=== PATIENT | female | born 1940 | race Caucasian/White ===

== ENCOUNTER 2018-02-04 08:27 | Outpatient (REF) | payer MEDICARE, MEDICAID, SELFPAY ==
[2018-02-04 12:04] LABS: ALT 31 U/L (12-78); AST 25 U/L (15-37); Albumin 3.8 g/dL (3.4-5.0); Alkaline Phosphatase 69 U/L (46-116); Anion Gap 6.6 mmol/L (3-11); BUN 19 mg/dL (7-18); Bilirubin, Total 0.3 mg/dL (0.2-1.0); CO2 31.4 mmol/L (21.0-32.0); Chloride 104 mmol/L (98-107); Cholesterol 162 mg/dL (50-200); Estimated GFR 54.05 (mL/min/1.73m2); Glucose 88 mg/dL (70-100); HDL Cholesterol 61 mg/dL (40-60); LDL CHOLESTEROL 84 mg/dL (<100); Potassium 3.6 mmol/L (3.5-5.1); Sodium 142 mmol/L (136-145); Total Protein 6.2 g/dL (6.4-8.2); Triglyceride 112 mg/dL (30-150)
[2018-02-04 16:28] LABS: HCT 33.8 % (36.0-46.0); HGB 11.5 g/dL (12.0-15.5); Mean Corpuscular Hemoglobin 31.2 pg (27.0-33.0); Mean Corpuscular Volume 91.6 fL (80-95); RBC 3.69 m/cumm (4.00-5.20); White Blood Cell Count 4.92 k/cumm (4.4-10.8)
[2018-02-04 16:29] LABS: Mean Platelet Volume 10.5 fL (8.0-11.0); Platelet Count 216 x1000/uL (130-400); RBC Distribution Width 12.9 % (11.7-14.6)
== END 2018-02-04 08:28 ==
LOC: NCHCN 08:27
PROVIDERS: Visit Provider Family Medicine
DX: I10 Essential (primary) hypertension (principal); E78.5 Hyperlipidemia, unspecified; R42 Dizziness and giddiness; M62.81 Muscle weakness (generalized)
CPT/HCPCS: 80053; 80061; 83721; 85027; 85025

== ENCOUNTER 2018-03-18 11:15 | Outpatient (CLI) | payer MEDICARE, MEDICAID, SELFPAY ==
--- NOTE | 2018-03-18 11:52 | DI.MAMMO_ITS ---
SYMPTOMS/DIAGNOSIS: SCREENING, Z12.31 MAMMOGRAM: Mammograms were interpreted according to the usual protocol including computer analysis with CAD system, tomosynthesis and C view imaging. The breasts are of moderate density with fairly symmetrical distribution of fibroglandular tissue. No dominant mass or clumped microcalcification is identified in either breast. Current examination is compared with the previous examinations including June 2015 and there has been no gross interval change in appearance in comparison with the previous studies. CONCLUSION: No specific evidence of malignancy at this time. Routine screening examinations are suggested at yearly intervals due to the family history of breast carcinoma. Category 1, breast density category B. MQSA ASSESSMENT OF FINDINGS: Negative. Category 1. Patient will receive a letter notifying them of these results. BI-RADS category B. There are scattered areas of fibroglandular density.
== END 2018-03-18 11:35 ==
PROVIDERS: Visit Provider Nurse Practitioner Family
DX: Z12.31 Encounter for screening mammogram for malignant neoplasm of breast (principal); Z80.3 Family history of malignant neoplasm of breast
CPT/HCPCS: 77063; 77067

== ENCOUNTER 2018-03-23 00:17 | Outpatient (CLI) | payer MEDICARE, MEDICAID, SELFPAY ==
--- NOTE | 2018-03-23 10:45 | MERGE_ITS ---
*[facility]* *[facility]* [address] [facility] ([facility] [address] Date of study: 03/23/2018 Transthoracic Echocardiography M-mode, complete 2D, complete spectral Doppler, and color Doppler *STUDY CONCLUSIONS* Summary: 1. Left ventricle: The cavity size was normal. Systolic function was hyperdynamic. The estimated ejection fraction was 65-70%. Doppler parameters are consistent with high ventricular filling pressure. 2. Aortic valve: There was mild stenosis. Valve area (VTI): 1.8cm^2. 3. Mitral valve: There was mild regurgitation. 4. Right ventricle: The cavity size was normal. Wall thickness was normal. Systolic function was normal. 5. Atrial septum: No defect or patent foramen ovale was identified. 6. Pulmonary arteries: Pulmonary systolic pressure was in the range of 20mm Hg to 30mm Hg. 7. Inferior vena cava: The vessel was normal in size. The respirophasic diameter changes were in the normal range (greater than or equal to 50%), consistent with normal central venous pressure. *PATIENT PRESENTATION* Height: 157.5cm ((62in) ) S/D Pressure: 133 / 57 Weight: 67.1kg ((147.7lb) ) BSA: 1.73m^2 Test start time: 10:30 AM. Test stop time: 11:45 AM. PERFORMING Unknown ORDERING Sheela Storey Aprn REFERRING Sheela Storey Aprn PERFORMING [facility] [employer] Khloe Sanford *PROCEDURE DATA* Procedure information: This study was interpreted by [facility]. Pertinent images and digital data are archived for permanent storage and are available for subsequent review. No prior study was available for comparison. Study status: Routine. Transthoracic echocardiography. M-mode, complete 2D, complete spectral Doppler, and color Doppler. A Transthoracic Echocardiogram was performed. Scanning was performed from the parasternal, apical, subcostal, and suprasternal notch acoustic windows. Images were obtained using an [employer] 2000 cardiac ultrasound machine. Image quality was adequate. Study completion: The patient tolerated the procedure well. History: PMH: Murmur. *CARDIAC ANATOMY* Left ventricle: The cavity size was normal. Systolic function was hyperdynamic. The estimated ejection fraction was 65-70%. The tissue Doppler parameters were abnormal. Some parameters suggest diastolic dysfunction. Doppler parameters are consistent with high ventricular filling pressure. Aortic valve: Trileaflet; mildly thickened, mildly calcified leaflets. Doppler: There was mild stenosis. There was no regurgitation. VTI ratio of LVOT to aortic valve: 0.71. Valve area (VTI): 1.8cm^2. Indexed valve area (VTI): 1cm^2/m^2. Peak velocity ratio of LVOT to aortic valve: 0.59. Valve area (Vmax): 1.5cm^2. Indexed valve area (Vmax): 0.9cm^2/m^2. Mean velocity ratio of LVOT to aortic valve: 0.6. Valve area (Vmean): 1.5cm^2. Indexed valve area (Vmean): 0.9cm^2/m^2. Mean gradient (S): 7.5mm Hg. Peak gradient (S): 15.2mm Hg. Aorta: Aortic root: The aortic root was normal in size. Ascending aorta: The ascending aorta was mildly dilated. Mitral valve: Doppler: There was no evidence for stenosis. There was mild regurgitation. Valve area by pressure half-time: 2.5cm^2. Indexed valve area by pressure half-time: 1.5cm^2/m^2. Peak gradient (D): 2.8mm Hg. Left atrium: The atrium was normal in size. Atrial septum: No defect or patent foramen ovale was identified. Right ventricle: The cavity size was normal. Wall thickness was normal. Systolic function was normal. Pulmonic valve: Doppler: There was no evidence for stenosis. There was mild regurgitation. Peak gradient (S): 3.8mm Hg. Tricuspid valve: Doppler: There was mild regurgitation. Pulmonary artery: Poorly visualized. Pulmonary systolic pressure was in the range of 20mm Hg to 30mm Hg. Right atrium: The atrium was normal in size. Pericardium: There was no pericardial effusion. Systemic veins: Inferior vena cava: The vessel was normal in size. The respirophasic diameter changes were in the normal range (greater than or equal to 50%), consistent with normal central venous pressure. Measurements Left ventricle Value Reference LV ID, ED, PLAX 4.3 cm 3.5 - 6.0 LV ID, ES, PLAX 3.0 cm 2.1 - 4.0 LV PW thickness, ED, PLAX 1.0 cm LV end-diastolic volume, 1-p A2C 63 ml LV ejection fraction, 1-p A2C 64 % LV end-diastolic volume, 1-p A4C 63 ml LV ejection fraction, 1-p A4C 52 % LV e', lateral 0.054 m/sec LV E/e', lateral 16 LV e', medial 0.056 m/sec LV E/e', medial 15 LV e', average 0.055 m/sec LV E/e', average 15 Ventricular septum Value Reference IVS thickness, ED, PLAX 1.0 cm LVOT Value Reference LVOT ID, A-P 1.8 cm LVOT area 2.5 cm^2 LVOT peak velocity, S 1.16 m/sec LVOT mean velocity, S 0.77 m/sec LVOT VTI, S 29.7 cm LVOT peak gradient, S 5.4 mm Hg LVOT mean gradient, S 2.8 mm Hg Stroke volume (SV), LVOT DP 75 ml Stroke index (SV/bsa), LVOT DP 43 ml/m^2 Aortic valve Value Reference Aortic valve peak velocity, S 2 m/sec Aortic valve mean velocity, S 1.27 m/sec Aortic valve VTI, S 41.8 cm Aortic mean gradient, S 7.5 mm Hg Aortic peak gradient, S 15.2 mm Hg VTI ratio, LVOT/AV 0.71 Aortic valve area, VTI 1.8 cm^2 Velocity ratio, peak, LVOT/AV 0.59 Aortic valve area, peak velocity 1.5 cm^2 Velocity ratio, mean, LVOT/AV 0.6 Aortic valve area, mean velocity 1.5 cm^2 Aortic valve area/bsa, mean velocity 0.9 cm^2/m^2 Aorta Value Reference Aortic root ID, ED 2.9 cm Ascending aorta ID, A-P, S 3.2 cm Left atrium Value Reference LA ID, A-P, ES 3.5 cm LA ID/bsa, A-P 2.0 cm/m^2 <=2.2 LA area, ES, A4C 14.3 cm^2 8.8 - 23.4 LA area, ES, A2C 22 cm^2 LA volume/bsa, S 33 ml/m^2 LA volume, ES, 2-p 51 ml LA volume/bsa, ES, 2-p 30 ml/m^2 LA/aortic root ratio 1.2 Mitral valve Value Reference Mitral E-wave peak velocity 0.84 m/sec Mitral A-wave peak velocity 1.13 m/sec Mitral deceleration time (H) 298 ms 150 - 230 Mitral pressure half-time 87 ms Mitral peak gradient, D 2.8 mm Hg Mitral E/A ratio, peak 0.74 Mitral valve area, PHT, DP 2.5 cm^2 Tricuspid valve Value Reference Tricuspid regurg peak velocity 2.2 m/sec Tricuspid peak RV-RA gradient 19.4 mm Hg Right atrium Value Reference RA area, ES, A4C 14.1 cm^2 8.3 - 19.5 Pulmonic valve Value Reference Pulmonic peak gradient, S 3.8 mm Hg Legend: (L) and (H) nia values outside specified reference range. I have personally reviewed the images and have reviewed and edited the reported findings. Electronically signed by Pranav Aiken MD 03/23/2018 17:47
== END 2018-03-23 00:37 ==
PROVIDERS: Visit Provider Nurse Practitioner Family
DX: R01.1 Cardiac murmur, unspecified (principal); I08.0 Rheumatic disorders of both mitral and aortic valves
CPT/HCPCS: 93306

== ENCOUNTER 2018-03-30 00:40 | Outpatient (CLI) | payer MEDICARE, MEDICAID, SELFPAY ==
--- NOTE | 2018-03-30 10:14 | DI.US_ITS ---
SYMPTOM/DIAGNOSIS: CAROTID BRUIT R09.89 SYSTOLIC HEART MURMUR R01.1 BILATERAL DUPLEX CAROTID ULTRASOUND: 03/30 Duplex evaluation of the carotid circulation was performed according to the usual protocol. There is bilateral antegrade vertebral flow. There is mild visible atheromatous plaque in the carotid bifurcation bilaterally. Flow velocities and common internal and external carotid arteries are within normal limits. CONCLUSION: No evidence of a hemodynamically significant carotid stenosis.
== END 2018-03-30 01:00 ==
PROVIDERS: Visit Provider Nurse Practitioner Family
DX: R09.89 Other specified symptoms and signs involving the circulatory and respiratory systems (principal); R01.1 Cardiac murmur, unspecified
CPT/HCPCS: 93880

== ENCOUNTER 2018-07-08 21:51 | Outpatient (REF) | payer MEDICARE, MEDICAID, SELFPAY ==
[2018-07-08 22:11] LABS: HCT 34.5 % (36.0-46.0); HGB 11.3 g/dL (12.0-15.5); Mean Corp. HGB Concentration 32.8 g/dL (32.0-36.0); Mean Corpuscular Hemoglobin 31.1 pg (27.0-33.0); Mean Platelet Volume 10.4 fL (8.0-11.0); Platelet Count 231 x1000/uL (130-400); RBC 3.63 m/cumm (4.00-5.20); RBC Distribution Width 12.9 % (11.7-14.6); White Blood Cell Count 4.89 k/cumm (4.4-10.8)
[2018-07-08 22:17] LABS: Anion Gap 4.7 mmol/L (3-11); BUN 27 mg/dL (7-18); CO2 34.3 mmol/L (21.0-32.0); CREATININE 1.05 mg/dL (0.55-1.02); Chloride 103 mmol/L (98-107); Estimated GFR 51.09 (mL/min/1.73m2); Glucose 76 mg/dL (70-100); Potassium 3.7 mmol/L (3.5-5.1); Sodium 142 mmol/L (136-145)
== END 2018-07-08 22:11 ==
LOC: NCHCN 21:51
PROVIDERS: PCP Family Medicine; Visit Provider Family Medicine
DX: I10 Essential (primary) hypertension (principal); R42 Dizziness and giddiness; Z01.818 Encounter for other preprocedural examination
CPT/HCPCS: 80048; 85027

== ENCOUNTER 2018-11-17 17:43 | Outpatient (REF) | payer MEDICARE, MEDICAID, SELFPAY ==
[2018-11-17 22:15] LABS: Abs Immature Grans 0.01 k/cumm (0.0-0.09); Absolute Basophil Count 0.02 k/cumm (0.0-0.2); Absolute Eosinophil Count 0.04 k/cumm (0.0-0.7); Absolute Lymphocyte Count 0.73 k/cumm (1.2-3.4); Absolute Monocyte Count 0.51 k/cumm (0.11-0.7); Absolute Neutrophil Count 4.15 k/cumm (1.2-6.7); Basophils % 0.4; Eosinophils % 0.7; HCT 34.1 % (36.0-46.0); HGB 11.2 g/dL (12.0-15.5); Immature Grans % 0.2; Lymphocytes % 13.4; Mean Corp. HGB Concentration 32.8 g/dL (32.0-36.0); Mean Corpuscular Hemoglobin 30.7 pg (27.0-33.0); Mean Corpuscular Volume 93.4 fL (80-95); Mean Platelet Volume 10.1 fL (8.0-11.0); Monocytes % 9.3; Platelet Count 229 x1000/uL (130-400); RBC 3.65 m/cumm (4.00-5.20); White Blood Cell Count 5.46 k/cumm (4.4-10.8)
[2018-11-17 22:27] LABS: Iron 44 ug/dL (50-175); Total Iron Binding Capacity 289 ug/dL (250-450); Transferrin Sat 15 % (15-50)
[2018-11-17 22:31] LABS: ALT 26 U/L (12-78); AST 16 U/L (15-37); Albumin 4.1 g/dL (3.4-5.0); Alkaline Phosphatase 59 U/L (46-116); Anion Gap 8.3 mmol/L (3-11); BUN 21 mg/dL (7-18); Bilirubin, Total 0.2 mg/dL (0.2-1.0); CO2 30.7 mmol/L (21.0-32.0); CREATININE 1.11 mg/dL (0.55-1.02); Calcium 9.3 mg/dL (8.5-10.1); Chloride 102 mmol/L (98-107); Estimated GFR 47.79 (mL/min/1.73m2); Glucose 94 mg/dL (70-100); Potassium 3.7 mmol/L (3.5-5.1); Sodium 141 mmol/L (136-145); TSH (W/Ref FT4) 1.97 uIU/mL (0.358-3.74); Total Protein 6.5 g/dL (6.4-8.2)
== END 2018-11-17 18:03 ==
LOC: NCHCN 17:43
PROVIDERS: PCP Family Medicine; Visit Provider Nurse Practitioner Family
DX: D64.9 Anemia, unspecified (principal); R27.9 Unspecified lack of coordination; R82.79 Other abnormal findings on microbiological examination of urine; I10 Essential (primary) hypertension; R51 Headache; R42 Dizziness and giddiness
CPT/HCPCS: 80053; 87077; 83540; 83550; 84443; 85025; 87086; 87186

== ENCOUNTER 2018-12-01 00:52 | Outpatient (CLI) | payer MEDICARE, MEDICAID, SELFPAY ==
--- NOTE | 2018-12-01 14:00 | DI.CT_ITS ---
SYMPTOMS/DIAGNOSIS: HEADACHES, R51, DIZZINESS, R42, X 2 MONTHS, S/P STROKE IN [address]: Noncontrast cranial CT was performed. There is moderate generalized cerebral atrophy. There is no evidence of acute intracranial hemorrhage, mass effect or midline shift. Note is made of mild mucoperiosteal thickening of ethmoid and maxillary sinuses consistent with mild chronic sinusitis. Minimal sphenoid mucoperiosteal thickening noted as well. Mastoid air cells are clear. Temporal bone structures and orbital structures appear intact. CONCLUSION: Cerebral atrophy. Examination is otherwise unremarkable.
== END 2018-12-01 01:12 ==
PROVIDERS: PCP Family Medicine; Visit Provider Nurse Practitioner Family
DX: R51 Headache (principal); R42 Dizziness and giddiness; G31.1 Senile degeneration of brain, not elsewhere classified; J32.8 Other chronic sinusitis
CPT/HCPCS: 70450

== ENCOUNTER → 2019-01-27 09:55 | Outpatient (BNVA) | payer MEDICARE, MEDICAID, SELFPAY | PROVIDERS: PCP Family Medicine; Referring Provider Nurse Practitioner Family; Visit Provider Psychiatry & Neurology Neurology | DX: R42 Dizziness and giddiness (principal); R26.9 Unspecified abnormalities of gait and mobility; R51 Headache; J44.9 Chronic obstructive pulmonary disease, unspecified; I10 Essential (primary) hypertension | CPT/HCPCS: 99205; 99215 ==

== ENCOUNTER → 2019-02-16 08:45 | Outpatient (BNVA) | payer MEDICARE, MEDICAID, SELFPAY | PROVIDERS: PCP Family Medicine; Visit Provider Psychiatry & Neurology Neurology | DX: R26.9 Unspecified abnormalities of gait and mobility (principal); R42 Dizziness and giddiness; J44.9 Chronic obstructive pulmonary disease, unspecified; Z87.891 Personal history of nicotine dependence; I10 Essential (primary) hypertension | CPT/HCPCS: 99214 ==

== ENCOUNTER → 2019-04-05 10:31 | Outpatient (BNVA) | payer MEDICARE, MEDICAID, SELFPAY | PROVIDERS: PCP Family Medicine; Referring Provider Family Medicine; Visit Provider Psychiatry & Neurology Neurology | DX: R42 Dizziness and giddiness (principal); R26.9 Unspecified abnormalities of gait and mobility; I10 Essential (primary) hypertension; J44.9 Chronic obstructive pulmonary disease, unspecified; Z87.891 Personal history of nicotine dependence | CPT/HCPCS: 99214 ==

== ENCOUNTER → 2019-06-09 10:25 | Outpatient (BNVA) | payer MEDICARE, MEDICAID, SELFPAY | PROVIDERS: PCP Family Medicine; Referring Provider Family Medicine; Visit Provider Psychiatry & Neurology Neurology | DX: R42 Dizziness and giddiness (principal) | CPT/HCPCS: 99213 ==

== ENCOUNTER 2019-07-01 14:41 | Inpatient (IN) | payer MEDICARE, MEDICAID, SELFPAY ==
[2019-07-01] VITALS (23 sets, daily range): BP systolic 71–188; BP diastolic 44–149; PULSE 68–91; RESP 11–24; TEMP 37.2–38.4; O2SAT 76–99
--- NOTE | 2019-07-01 14:55 | W.ED.GENAD ---
Discharge Plan Discharge Details Chief Complaint: Orthopedic Admit Date/Time: 07/01/19 16:15 Admit Provider: Star Winter Attending Provider: Star Winter Primary Care Provider: Deborah Valle ED Provider: Shyla Palma Discharge Data Discharge Date/Time-TO BE ENTERED AT DEPARTURE: 07/01/19 16:59 Medical Decision Making Patient is a pleasant 78-year-old female presenting today, brought in by her daughter, with chief complaint of right hip pain. She reports that prior to arrival, she was in her bedroom when she slipped on some slippery slippers and fell landing directly on her right hip. She denies other injuries from the incident. No struck her head. No loss of consciousness. Denies any altered sensation. Has not had issues with this previously. No previous surgeries to this hip. Has not been able to bear weight since her fall. Brought in POV accompanied by her daughter. She is reports she was unable to bear any weight to be able to transfer into a wheelchair. On exam, she appears uncomfortable. She does have 2+ distal pulses. No saddle paresthesias. Pain elicited with palpation of the lateral aspect of the hip but no evidence of ecchymosis or swelling at this time. No notable deformity. She is preferring to hold the hip in a flexed position. Plan to treat pain, obtain imaging. Will give 50 mcg of fentanyl. Reviewed imaging, note a right-sided hip fracture. Will consult with orthopedics. Consult Dr. Sanchez who advised that we hold antiplatelets and placement will be added to surgical schedule for tomorrow. Has requested CT of hip and XR of femur. Will also obtain type and screen and ecg. Consulted with Dr. Winter who agrees admission with him to evaluate the patient. I have also requested urinary to perform block to help with discomfort. Dr. Winter at bedside for evaluation and admission HPI General Mode of arrival: wheelchair. Date/Time Provider Initiated Documentation: 07/01/19 14:41. Limitations to Documentation: no limitations. Information obtained by: patient, family (daughter) and RN notes reviewed. History of Present Illness 78 year old F presents to the emergency department with the chief complaint of right hip pain, described as severe, with intensity rated at 10. Quality is described as stabbing, and is localized to the right and lower extremity. Patient reports no radiation. Patient started experiencing this minute(s) and it has been constant. Immobilization improves symptom(s), Movement worsens symptoms . Patient notes no other symptoms.. Patient did receive the following treatments prior to arrival, none Related Data Home Medications Medication Instructions Recorded Confirmed Calcet Petites 2 tab PO DAILY 02/01/13 07/01/19 aspirin-dipyridamole [Aggrenox] 25 - 200 cap PO BID 02/01/13 07/01/19 tramadol 50 mg PO TID PRN 02/01/13 07/01/19 vitamin B complex [Vitamin B-100 1 tab PO DAILY 02/01/13 07/01/19 Complex] famotidine 20 mg PO DAILY PRN 02/06/17 07/01/19 ascorbic acid (vitamin C) 500 mg 500 mg PO DAILY cap 12/03/18 07/01/19 capsule atorvastatin 10 mg tablet 10 mg PO DAILY 12/03/18 07/01/19 diltiazem HCl 120 mg 120 mg PO DAILY 12/03/18 07/01/19 capsule,extended release 24 hr hydrochlorothiazide 25 mg tablet 25 mg PO DAILY 12/03/18 07/01/19 citalopram 10 mg tablet 10 mg PO DAILY #90 tab 06/09/19 07/01/19 trazodone 50 mg tablet 25 - 50 mg PO .QHS 06/09/19 07/01/19 ipratropium bromide 2 spray INTRANASAL TID PRN 07/01/19 07/01/19 loratadine [Claritin] 10 mg PO DAILY PRN 07/01/19 07/01/19 valsartan 160 mg PO DAILY 07/01/19 07/01/19 Previous Rx's Medication Instructions Recorded citalopram 10 mg tablet 10 mg PO DAILY #90 tab 06/09/19 Allergies Allergy/AdvReac Type Severity Reaction Status Date / Time atenolol Allergy Mild Verified 07/01/19 14:52 esomeprazole [From Nexium] AdvReac Unknown Unverified 07/01/19 14:52 General Stated Complaint: Orthopedic DIMITRIOS: 3 Review of Systems Constitutional Constitutional: Reports as per HPI, Denies chills, Denies fever(s), Denies headache(s) and Denies weakness ENT Ears, Nose, Mouth, and Throat: Denies headache(s) Cardiovascular Cardiovascular: Reports as per HPI Respiratory Respiratory: Reports as per HPI and Denies cough Musculoskeletal Musculoskeletal: Reports as per HPI and Denies tingling Integumentary/Breasts Skin/Breast: Reports as per HPI, Denies rash and Denies wounds Neurologic Neurologic: Reports as per HPI, Denies headache(s), Denies tingling, Denies paresthesias and Denies weakness [facility] Medical History (Updated 07/02/19 @ 12:53 by Stra Winter MD) Anemia of chronic disease (Acute) Anxiety (Chronic) Chronic back pain (Acute) COPD (chronic obstructive pulmonary disease) (Chronic) CVA (cerebral vascular accident) (Chronic) History of cerebrovascular accident (CVA) due to ischemia (Acute) HLD (hyperlipidemia) (Acute) Hypertension (Acute) Osteopenia (Acute) PVD (peripheral vascular disease) (Chronic) Sensory hearing loss (Acute) Surgical History S/P matrixectomy of toe of right foot (Acute) Trigger finger, left (Acute) Social History Smoking/Tobacco Use Status: Former Tobacco Use Alcohol Intake: former Drug use: Never Household members: none Number of Children: 2 current occupation: Retired Sales/Clerical/Caregiver What is your relationship status?: Panel score (0-1 are the most socially isolated patients): 0 Do you feel safe in your relationship?: Yes Exam Const General: cooperative, healthy appearing, uncomfortable (appears uncomfortable), no acute distress, well developed and well groomed Nutritional Appearance: average body habitus and well nourished Orientation: alert and awake Resp Effort & Inspection: normal respiratory effort, able to speak in complete sentences and no respiratory distress Auscultation: clear to auscultation bilaterally Cardio Rate: regular rate Rhythm: regular rhythm Heart Sounds: S1 normal and S2 normal GI Inspection: normal to inspection Palpation: soft, no hepatosplenomegaly, no guarding, not rigid and nontender Auscultation: normal bowel sounds Back/Spine/Pelvis Back: no CVA tenderness Cervical Spine: normal cervical lordosis and cervical ROM normal Pelvis: no pain with anterior-posterior compression, no pain with lateral compression and no buttock ecchymosis Skin General skin exam: no rashes or lesions noted Lesions: no lesions Rashes: no rashes Trauma: no lacerations or abrasions Neuro General: alert and awake Cognition: normal cognition Speech: speech normal Gait: gait abnormal (unable to bear weight at this time) Motor: muscle tone normal throughout Sensory Exam: no sensory deficits noted Extrem General: abnormal ROM (not moving RLE), normal capillary refill, no joint enlargement, no pedal edema, no calf tenderness and abnormal gait Right upper extremity: normal to inspection Left upper extremity: normal to inspection Right lower extremity: normal capillary refill, no joint enlargement, hip/thigh (pain laterally, no notable deformity) Details: tenderness; no swelling, ROM abnormal (holding right hip in flexed position), no abrasions, no lacerations, no ecchymosis, no crepitus and no deformity, knee Details: normal to inspection (ROM not fully assesed secondary to hip pain) and knee ligament exam normal; no tenderness, no swelling and no deformity, lower leg Details: normal to inspection, ankle Details: normal to inspection and foot Details: normal capillary refill; ROM limited and no edema Left lower extremity: normal to inspection Psych Appearance: grossly normal and well kempt Mental Status: mental status grossly normal Speech and Movement: speech and movement normal Course Vital Signs Vital signs: Vital Signs Temperature 37.2 C 07/01/19 14:43 Pulse 81 07/01/19 14:43 Respiratory Rate 18 07/01/19 14:43 Blood Pressure 140/80 07/01/19 14:43 Pulse Oximetry 97 07/01/19 14:43 Temperature 37.2 C 07/01/19 14:43 Temperature Source Temporal Artery Scan 07/01/19 14:43 Pulse 81 07/01/19 14:43 Respiratory Rate 18 07/01/19 14:43 Respiratory Effort Non-Labored 07/01/19 14:51 Blood Pressure 140/80 07/01/19 14:43 Pulse Oximetry 97 07/01/19 14:43 Oxygen Delivery Method Room Air 07/01/19 14:43 Oxygen Flow Rate 0 07/01/19 14:43 Pain Level 10 07/01/19 14:43
[2019-07-01] MEDS: fentaNYL 100 MCG/2 ML VIAL 50 MCG IVP ×2 (14:57→16:30)
[2019-07-01] MEDS: Normal Saline 1,000 ML 200 ML IV (14:58)
[2019-07-01] MEDS: Normal Saline Flush 10 ML SYR IVP ×3 (14:58→21:49)
[2019-07-01 15:11] LABS: Abs Immature Grans 0.02 k/cumm (0.0-0.09); Absolute Basophil Count 0.02 k/cumm (0.0-0.2); Absolute Eosinophil Count 0.02 k/cumm (0.0-0.7); Absolute Lymphocyte Count 0.93 k/cumm (1.2-3.4); Absolute Monocyte Count 0.56 k/cumm (0.11-0.7); Absolute Neutrophil Count 6.65 k/cumm (1.2-6.7); Basophils % 0.2; Eosinophils % 0.2; HCT 32.9 % (36.0-46.0); Immature Grans % 0.2 %; Lymphocytes % 11.3; Mean Corp. HGB Concentration 33.4 g/dL (32.0-36.0); Mean Corpuscular Hemoglobin 31.1 pg (27.0-33.0); Mean Corpuscular Volume 92.9 fL (80-95); Mean Platelet Volume 9.6 fL (8.0-11.0); Monocytes % 6.8; Neutrophils % 81.3; Platelet Count 222 x1000/uL (130-400); RBC 3.54 m/cumm (4.00-5.20); RBC Distribution Width 12.8 % (11.7-14.6)
--- NOTE | 2019-07-01 15:12 | DI.RAD_ITS ---
EXAM: XR HIP RT COMPLETE AP PELVIS CLINICAL HISTORY: fall onto lateral hip TECHNIQUE: COMPARISON: No exams were available for comparison FINDINGS: Two views were obtained. There is a subcapital fracture of the right femur with moderate displacemen t. There appears to be mild valgus angulation and impaction. No other fracture seen on this limited series. IMPRESSION:
[2019-07-01 15:17] LABS: ALT 24 U/L (14-59); AST 21 U/L (15-37); Albumin 3.9 g/dL (3.4-5.0); Alkaline Phosphatase 56 U/L (46-116); Anion Gap 6.3 mmol/L (3-11); BUN 28 mg/dL (7-18); Bilirubin, Total 0.4 mg/dL (0.2-1.0); CO2 32.7 mmol/L (21.0-32.0); CREATININE 0.97 mg/dL (0.55-1.02); Calcium 9.1 mg/dL (8.5-10.1); Chloride 103 mmol/L (98-107); Estimated GFR 55.83 (mL/min/1.73m2); Glucose 92 mg/dL (74-106); Potassium 3.6 mmol/L (3.5-5.1); Sodium 142 mmol/L (136-145); Total Protein 6.7 g/dL (6.4-8.2)
[2019-07-01] MEDS: fentaNYL 100 MCG/2 ML VIAL ×2 (15:20→16:54)
[2019-07-01 16:04] LABS: PTT Activated 23.1 sec (21.0-31.4); Prothrombin Time 10.4 sec (9.3-11.0)
[2019-07-01] MEDS: Bupivacaine 0.25% Pres-Free 30 ML VIAL (16:29)
[2019-07-01] MEDS: Bupivacaine LIPOSOME/PF 133 MG/10 ML VIAL IJ (16:29)
--- NOTE | 2019-07-01 16:34 | W.PM.HP.N ---
Date of service: 07/01/19 Time of Service: 16:34 Assessment and Plan Assessment and plan (1) Displaced fracture of right femoral neck: Status: Acute Assessment and plan: Mechanical fall, impacted and displaced femoral neck fracture. Hopefully nerve block will help decrease pain sufficiently that we do not need to use opiates but they are ordered for breakthrough pain. No chronic cardiac, pulmonary or renal problems that pose a contraindication to proceeding with surgery tomorrow. She does have anemia of chronic disease and it would not be surprising to see her hemoglobin dipped close to transfusion range, hopefully it will not. Mild problems with constipation, bowel meds ordered. Chronic right shoulder and neck pain may be a factor during rehab, we will have to see how she does. (2) History of cerebrovascular accident (CVA) due to ischemia: Status: Acute Assessment and plan: No motor residual effects from her past stroke, does have some cognitive impairment/mild memory impairment. Monitor for delirium. Aggrenox on hold. This can be restarted after surgery. (3) Anemia of chronic disease: Status: Acute Assessment and plan: Mild anemia now, not far from her most recent baseline. Follow postop. (4) Hypertension: Status: Acute Assessment and plan: Blood pressure elevated now likely secondary to pain. Follow on her outpatient meds with diuretic on hold until after surgery. (5) Anxiety: Status: Chronic Assessment and plan: Continue citalopram at current dose. Trazodone on hold. (6) Chronic back pain: Status: Acute Assessment and plan: Monitor for exacerbation with rehab following surgery. Pain management with acetaminophen and oxycodone if needed. (7) Right shoulder pain: Status: Acute Assessment and plan: Minimally symptomatic now. May be a factor with efforts at rehab. Monitor. (8) HLD (hyperlipidemia): Status: Acute Assessment and plan: Continue statin at outpatient dose. History of Present Illness History of Present Illness Chief Complaint: Right hip pain status post fall Narrative: 78-year-old woman with a history of stroke, residual mild cognitive impairment but no motor deficits, in her usual state of independent living in health when she tripped in her slippers falling on a hardwood floor in her right hip. Unable to get up on her own or weight-bear. Brought into the emergency room where x-rays show an impacted mildly displaced right femoral neck fracture. She is being admitted for medical management in anticipation of operative repair tomorrow. No loss of consciousness, she did not strike her head. No presyncopal feelings. She has been feeling well prior to this unexpected event with no fevers cough congestion. She has no history of cardiac disease, lung disease, renal disease. She does carry a label of peripheral arterial disease which may reflect her cerebrovascular disease from past stroke. She has been on Aggrenox since her stroke with no bleeding complications. She has chronic occipital and right shoulder pain for which she intermittently uses tramadol. She also has chronic dizziness which has improved some with citalopram. She has hypertension for which she takes calcium channel eliza, ARB and a diuretic without adverse effects. Review of Systems Narrative: As per HPI. She is hard of hearing. She knows that she has some memory issues. Wears dentures with no discomfort in her mouth. No dyspnea with usual activities. No chest pains. No dyspepsia with current medication. No nausea or vomiting. Tendency towards constipation but not problematic now. No melanotic stool. No dysuria. Sometimes has a little bit of urge leaking of urine. No dysuria. No skin rashes. Chronic pain in the right shoulder and posterior neck area with no recent exacerbations. [facility] Medical History Anxiety (Chronic) Chronic back pain (Acute) COPD (chronic obstructive pulmonary disease) (Chronic) CVA (cerebral vascular accident) (Chronic) HLD (hyperlipidemia) (Acute) Hypertension (Acute) Osteopenia (Acute) PVD (peripheral vascular disease) (Chronic) Sensory hearing loss (Acute) Surgical History S/P matrixectomy of toe of right foot (Acute) Trigger finger, left (Acute) Social History Smoking/Tobacco Use Status: Former Tobacco Use Alcohol Intake: former Drug use: Never Household members: none Number of Children: 2 current occupation: Retired Sales/Clerical/Caregiver What is your relationship status?: Panel score (0-1 are the most socially isolated patients): 0 Do you feel safe in your relationship?: Yes Meds Home Medications and Allergies Home Medications Medication Instructions Recorded Confirmed Type Calcet Petites 2 tab PO DAILY 02/01/13 07/01/19 History aspirin-dipyridamole [Aggrenox] 25 - 200 cap PO BID 02/01/13 07/01/19 History tramadol 50 mg PO TID PRN 02/01/13 07/01/19 History vitamin B complex [Vitamin B-100 1 tab PO DAILY 02/01/13 07/01/19 History Complex] famotidine 20 mg PO DAILY PRN 02/06/17 07/01/19 History ascorbic acid (vitamin C) 500 mg 500 mg PO DAILY cap 12/03/18 07/01/19 History capsule atorvastatin 10 mg tablet 10 mg PO DAILY 12/03/18 07/01/19 History diltiazem HCl 120 mg 120 mg PO DAILY 12/03/18 07/01/19 History capsule,extended release 24 hr hydrochlorothiazide 25 mg tablet 25 mg PO DAILY 12/03/18 07/01/19 History citalopram 10 mg tablet 10 mg PO DAILY #90 tab 06/09/19 07/01/19 Rx trazodone 50 mg tablet 25 - 50 mg PO .QHS 06/09/19 07/01/19 History ipratropium bromide 2 spray INTRANASAL TID PRN 07/01/19 07/01/19 History loratadine [Claritin] 10 mg PO DAILY PRN 07/01/19 07/01/19 History valsartan 160 mg PO DAILY 07/01/19 07/01/19 History Allergies Allergy/AdvReac Type Severity Reaction Status Date / Time atenolol Allergy Mild Verified 07/01/19 14:52 esomeprazole [From Nexium] AdvReac Unknown Unverified 07/01/19 14:52 Exam Narrative Exam Narrative: Woman appearing her stated age, somewhat uncomfortable lying on stretcher from right hip pain. Defers to her daughter to answer some questions or clarify points. Hearing aids bilaterally. Dentures up and down. No facial asymmetry. I do not hear any carotid bruits. Lungs clear anterior and lateral lung blandon I did not attempt to roll her because of her discomfort. No heart murmur S3 or S4. Bowel sounds are present with soft abdomen no tenderness to palpation anywhere. She is tender over the right trochanteric bursa region. She has pain with any active or passive movement of her right leg felt in the right hip and groin area. She has good pulses in the right foot 1+ in the left foot. Surgical scar dorsum of the right toe with a corn plantar aspect and a third metatarsal but no erythema. 2+ DTRs in both knees and elbows. She has symmetric spontaneous movement of both upper extremities. She knows that she is in the hospital and why. Results ECG pending. CT scan of her right hip pending Labs Result diagrams: 07/01/19 15:00 07/01/19 15:00 Labs: Laboratory Results - last 24 hr 07/01/19 07/01/19 07/01/19 15:00 15:00 15:00 WBC 8.20 RBC 3.54 L Hgb 11.0 L Hct 32.9 L MCV 92.9 MCH 31.1 MCHC 33.4 RDW 12.8 Plt Count 222 MPV 9.6 Immature Gran % 0.2 Neutrophils % 81.3 Lymphocytes % 11.3 Monocytes % 6.8 Eosinophils % 0.2 Basophils % 0.2 Absolute Neutrophils 6.65 Absolute Lymphocytes 0.93 L Absolute Monocytes 0.56 Absolute Eosinophils 0.02 Absolute Basophils 0.02 PT 10.4 INR 1.0 APTT 23.1 Sodium 142 Potassium 3.6 Chloride 103 Carbon Dioxide 32.7 H Anion Gap 6.3 BUN 28 H Creatinine 0.97 Estimated GFR/1.73 m2 55.83 Glucose 92 Calcium 9.1 Total Bilirubin 0.4 AST 21 ALT 24 Alkaline Phosphatase 56 Total Protein 6.7 Albumin 3.9 Last Vital Signs Temp 37.2 C 07/01/19 14:43 Pulse 81 07/01/19 14:43 Resp 18 07/01/19 14:43 BP 140/80 07/01/19 14:43 Pulse Ox 97 07/01/19 14:43
--- NOTE | 2019-07-01 17:14 | OCONE_ITS ---
Date of service: 07/02/19 Time of Service: 09:45 History of Present Illness History of Present Illness Chief Complaint: Right hip pain Narrative: Chief Complaint: Right hip pain HPI: 78 y/o female s/p mechanical slip and fall yesterday onto right side. immediate onset severe deep hip pain. inability to ambulate. previously ambulatory with cane. Lives independently although she has been developing progressive memory loss and decrease in overall function. currently on blood thinning medication: Aggrenox (Aspirin / Dipyridamole). Last dose yesterday but this is somewhat unclear. Significant arthritic pain throughout her back and shoulders but no significant right hip pre-existing pain. Denies pre-existing injury to the right hip. Denies any numbness or tingling in the right lower extremity. No other acute injuries. Did not hit head. PMH: CVA, mild cognitive impairment, COPD, anxiety, HTN, HLD, PVD diabetes: Denies allergies: Atenolol, Nexium unclear reactions FH: non-contributory SH: hand dominance: Right occupation: Retired smoke cigarettes: No Consult Reason Right hip fracture Assessment and Plan Assessment and plan (1) Displaced fracture of right femoral neck: Status: Acute Assessment and plan: 78F with Right valgus impacted femoral neck fracture. -medical admission, optimization, and risk stratification -CBC, BMP, PT/INR, CXR, and EKG done preop -type and screen ordered and done as patient is above average risk requiring blood transfusion given baseline anemia, anti-platelet therapy, and hip fracture -multimodal pain management -bedrest, NWB RLE, jenkins as needed pending OR -decision to proceed with surgery today: cannulated screw internal fixation given fracture pattern Garden 1 in a physiologically elderly patient accepting increased risk of osteonecrosis/ AVN and potential need for reoperation as tradeoff for lower perioperative risk than prosthetic replacement with associated higher infection and dislocation rates. -cefazolin 2g ordered microsoft application developer for OR -UA and CXR ordered for fever -admitting hospitalist chart reviewed and case discussed confirming patient is appropriate risk to proceed with surgery -The risks, benefits, and alternatives were thoroughly discussed with the patient and her daughter Patient was counseled regarding pain management, expected postoperative course, and recovery timeline. All questions were answered. Informed consent was obtained. Agree and understand treatment plan. (2) Anemia of chronic disease: Status: Acute Assessment and plan: as above. Hold antiplatelet therapy postoperatively until hemoglobin. May then resume home antiplatelet therapy also serving as her chemo DVT prophylaxis after hip fracture surgery. Review of Systems Constitutional Constitutional: Denies chills and Denies fever(s) Eyes Eyes: Denies diplopia and Denies loss of vision ENT Ears, Nose, Mouth, and Throat: Denies dental pain and Denies other (cavities) Cardiovascular Cardiovascular: Denies chest pain, Denies irregular heart rhythm and Denies dyspnea Respiratory Respiratory: Denies cough and Denies dyspnea Gastrointestinal Gastrointestinal: Denies nausea and Denies vomiting Musculoskeletal Musculoskeletal: Reports as per HPI Integumentary/Breasts Skin/Breast: Denies rash and Denies wounds Neurologic Neurologic: Reports as per HPI and Denies loss of vision Psychiatric Psychiatric: Denies anxiety and Denies depression Hematologic/Lymphatic Hematologic/Lymphatic: Reports easy bleeding and Reports easy bruising Comments: Due to antiplatelet therapy Allergic/Immunologic Allergic/Immunologic: Reports as per HPI [facility] Medical History Anemia of chronic disease (Acute) Anxiety (Chronic) Chronic back pain (Acute) COPD (chronic obstructive pulmonary disease) (Chronic) CVA (cerebral vascular accident) (Chronic) History of cerebrovascular accident (CVA) due to ischemia (Acute) HLD (hyperlipidemia) (Acute) Hypertension (Acute) Osteopenia (Acute) PVD (peripheral vascular disease) (Chronic) Sensory hearing loss (Acute) Surgical History S/P matrixectomy of toe of right foot (Acute) Trigger finger, left (Acute) Family History Mother Heart disease Social History Smoking/Tobacco Use Status: Former Tobacco Use Alcohol Intake: former Drug use: Never Household members: none Number of Children: 2 current occupation: Retired Sales/Clerical/Caregiver What is your relationship status?: Panel score (0-1 are the most socially isolated patients): 0 Do you feel safe in your relationship?: Yes Exam Const General: cooperative and uncomfortable Nutritional Appearance: overweight Orientation: alert, awake and not confused Limitations: mental status not altered and no language barrier [facility] Head: normocephalic and atraumatic Neck Neck: normal visual inspection and full ROM Resp Effort & Inspection: normal respiratory effort, able to speak in complete sentences, no audible wheezes and no grunting Cardio Other: No pedal edema. All 4 extremities warm and perfused. General: deferred Skin General skin exam: no rashes or lesions noted Neuro General: alert, awake and gait abnormal Cognition: abnormal cognition Speech: speech normal Motor: abnormal movements noted Sensory Exam: no sensory deficits noted Extrem Other: Right hip: No ecchymosis. All thigh and leg compartment soft. Apprehensive and exquisitely tender to any attempted palpation about the right hip. The thought of logroll or straight leg raise is extremely painful to the patient. Psych Appearance: grossly normal Mental Status: mental status grossly normal Speech and Movement: speech and movement normal Affect: normal affect Attitude: cooperative Results Last Vital Signs Temp 99.0 F 07/01/19 16:58 Pulse 72 07/01/19 16:58 Resp 18 07/01/19 16:58 BP 170/61 H 07/01/19 16:58 Pulse Ox 76 L 07/01/19 16:58 Labs Labs: Laboratory Results - last 24 hr 07/01/19 07/01/19 07/01/19 15:00 15:00 15:00 WBC 8.20 RBC 3.54 L Hgb 11.0 L Hct 32.9 L MCV 92.9 MCH 31.1 MCHC 33.4 RDW 12.8 Plt Count 222 MPV 9.6 Immature Gran % 0.2 Neutrophils % 81.3 Lymphocytes % 11.3 Monocytes % 6.8 Eosinophils % 0.2 Basophils % 0.2 Absolute Neutrophils 6.65 Absolute Lymphocytes 0.93 L Absolute Monocytes 0.56 Absolute Eosinophils 0.02 Absolute Basophils 0.02 PT 10.4 INR 1.0 APTT 23.1 Sodium 142 Potassium 3.6 Chloride 103 Carbon Dioxide 32.7 H Anion Gap 6.3 BUN 28 H Creatinine 0.97 Estimated GFR/1.73 m2 55.83 Glucose 92 Calcium 9.1 Total Bilirubin 0.4 AST 21 ALT 24 Alkaline Phosphatase 56 Total Protein 6.7 Albumin 3.9 Patient ABO/Rh Antibody Screen 07/01/19 16:05 WBC RBC Hgb Hct MCV MCH MCHC RDW Plt Count MPV Immature Gran % Neutrophils % Lymphocytes % Monocytes % Eosinophils % Basophils % Absolute Neutrophils Absolute Lymphocytes Absolute Monocytes Absolute Eosinophils Absolute Basophils PT INR APTT Sodium Potassium Chloride Carbon Dioxide Anion Gap BUN Creatinine Estimated GFR/1.73 m2 Glucose Calcium Total Bilirubin AST ALT Alkaline Phosphatase Total Protein Albumin Patient ABO/Rh A Positive Antibody Screen Negative Imaging Chest x-ray: report reviewed and image reviewed (No obvious collections acute cardiac or pulmonary. Pre-existing COPD) EKG: pending Imaging Studies: Pelvis and hip XRs: Right valgus impacted displaced femoral neck fracture Femur XR: negative for femoral shaft fracture Rt hip CT: confirms valgus impacted complete non-comminuted femoral neck fracture with minimal sagittal plane deformity
--- NOTE | 2019-07-01 17:15 | DI.RAD_ITS ---
EXAM: XR FEMUR RT CLINICAL HISTORY: fall TECHNIQUE: COMPARISON: CT LOWER EXTREMITY RT WO from 07/01/2019 FINDINGS: Radiographs of the femur and CT of the hip and femur are interpreted in conjunction. Radiographs of the femur show previously described subcapital femoral fracture with no additional fra cture seen. CT shows moderately impacted subcapital fracture with minimal comminution. The acetabulum appears in tact and there are mild degenerative changes of the hip. No additional fracture seen. No significant soft tissue abnormality identified. IMPRESSION:
--- NOTE | 2019-07-01 17:38 | DI.VRAD_ITS ---
PROCEDURE INFORMATION: Exam: XR Right Femur Exam date and time: 07/01/2019 5:25 PM Age: 78 years old Clinical indication: Other: Fall TECHNIQUE: Imaging protocol: XR Right femur. Views: 2 views. COMPARISON: No relevant prior studies available. FINDINGS: Bones/joints: Subcapital fracture in the right hip. Soft tissues: Unremarkable. IMPRESSION: Subcapital fracture in the right hip. Dictated and Authenticated by: Hilton Barron MD. Ordering:CAIO Mansfield MD
--- NOTE | 2019-07-01 17:53 | DI.VRAD_ITS ---
PROCEDURE INFORMATION: Exam: CT Right Lower Extremity Without Contrast Exam date and time: 07/01/2019 5:30 PM Age: 78 years old Clinical indication: Other: Further evaluation of RT hip FX TECHNIQUE: Imaging protocol: CT of the Right lower extremity without contrast was performed. COMPARISON: CR XR FEMUR RT 07/01/2019 5:15 PM FINDINGS: Bones/joints: Right subcapital fracture with no displacement. Soft tissues: Normal. Vasculature: Atherosclerosis. IMPRESSION: Right subcapital fracture with no displacement. Dictated and Authenticated by: Hilton Barron MD. Ordering:CAIO Mansfield MD
[2019-07-01] MEDS: Lactated Ringers 1,000 ML 100 ML IV (18:22)
[2019-07-01] MEDS: Acetaminophen 325 MG TAB 650 MG PO (18:29)
--- NOTE | 2019-07-01 20:01 | DI.RAD_ITS ---
EXAM: XR PORTABLE CHEST AP CLINICAL HISTORY: Fever, preop workup TECHNIQUE: COMPARISON: CHEST 2 VIEWS PA,LAT from 02/01/2013 FINDINGS: Semi upright AP chest shows borderline cardiomegaly. Lungs are clear and well expanded. No other sp ecific abnormality seen. IMPRESSION:
[2019-07-01] MEDS: oxyCODONE 5 MG TAB PO (20:04)
--- NOTE | 2019-07-01 22:09 | DI.VRAD_ITS ---
PROCEDURE INFORMATION: Exam: XR Chest, 1 View Exam date and time: 07/01/2019 10:06 PM Age: 78 years old Clinical indication: Pre-operative exam; Cardiovascular screening and respiratory screening exam TECHNIQUE: Imaging protocol: XR of the chest Views: 1 view. COMPARISON: CR CHEST 2 VIEWS PA,LAT 02/01/2013 5:32 PM FINDINGS: Lungs: Unremarkable. No consolidation. Pleural space: Unremarkable. No pleural effusion. No pneumothorax. Heart/Mediastinum: Unremarkable. No cardiomegaly. Vasculature: Atherosclerosis. Bones/joints: Unremarkable. IMPRESSION: No acute finding. Dictated and Authenticated by: Hilton Barron MD. Ordering:ETHAN Mckeon MD
[2019-07-01 22:12] LABS: Bilirubin Negative (Negative); Blood Moderate (Negative); Clarity Clear (Clear); Glucose Negative (Negative); Ketones Negative (Negative); Leukocyte Esterase Negative (Negative); Nitrite Negative (Negative); Urobilinogen 0.2 EU/dL (Up TO 0.2); pH 5.5 (5-8)
[2019-07-01 22:22] LABS: C & S Indicated? No; WBC 0-2 HPF (0-5)
[2019-07-02] VITALS (14 sets, daily range): BP systolic 92–153; BP diastolic 33–88; PULSE 66–87; RESP 15–23; TEMP 36.9–37.9; O2SAT 87–99
[2019-07-02] MEDS: Lactated Ringers 1,000 ML 100 ML IV ×2 (04:07→15:47)
[2019-07-02] MEDS: Normal Saline Flush 10 ML SYR IVP ×2 (06:22→08:12)
[2019-07-02] MEDS: oxyCODONE 5 MG TAB PO ×3 (06:22→23:58)
[2019-07-02 07:09] LABS: HCT 29.6 % (36.0-46.0); HGB 9.8 g/dL (12.0-15.5); Mean Corp. HGB Concentration 33.1 g/dL (32.0-36.0); Mean Corpuscular Hemoglobin 30.5 pg (27.0-33.0); Mean Corpuscular Volume 92.2 fL (80-95); Mean Platelet Volume 9.6 fL (8.0-11.0); Platelet Count 169 x1000/uL (130-400); RBC 3.21 m/cumm (4.00-5.20); RBC Distribution Width 12.8 % (11.7-14.6); White Blood Cell Count 6.39 k/cumm (4.4-10.8)
[2019-07-02] MEDS: Atorvastatin 10 MG TAB PO (08:11)
[2019-07-02] MEDS: Acetaminophen 325 MG TAB 650 MG PO ×2 (08:11→23:54)
[2019-07-02] MEDS: dilTIAZem CD 120 MG CAPCR PO (08:11)
[2019-07-02] MEDS: Citalopram 10 MG TAB PO (08:12)
[2019-07-02] MEDS: Valsartan 80 MG TAB 160 MG PO (08:12)
--- NOTE | 2019-07-02 12:06 | W.NUTCONSULT ---
Date of service: 07/02/19 Time of Service: 12:06 Nutritional Consult ASSESSMENT: 78 year old female admitted for right femur fracture. NPO myers surgery today. BMI wnl for age. Does not appear to be at nutritional risk. Will follow po intake and weight trends and intervene as warranted. MONITORING AND EVALUATION: weight and po intake Time Spent in Nutritional Counseling and Treatment: 0 time spent face to face
[2019-07-02] MEDS: ceFAZolin 2 GM/50 ML BAG IVPB (12:45)
--- NOTE | 2019-07-02 12:52 | W.PM.PROGNOT ---
Date of Service Date of service: 07/02/19 Time of Service: 06:52 Assessment and Plan Assessment and plan (1) Displaced fracture of right femoral neck: Status: Acute Assessment and plan: Pain control adequate although a bit of sedation and mild confusion with opiates. Awaiting surgery. Medically stable and cleared to proceed as planned. (2) History of cerebrovascular accident (CVA) due to ischemia: Status: Acute Assessment and plan: No new neurologic symptoms. Aggrenox remains on hold. (3) Anemia due to blood loss: Status: Acute Assessment and plan: A not unexpected drop in hemoglobin. Chronic anemia attributed to chronic disease. Likely to have further drop in hemoglobin following surgery. Continue to monitor CBC. (4) Hypertension: Status: Acute Assessment and plan: Diuretic on hold. Monitor blood pressure postop. At this point planning on continuing her outpatient calcium channel eliza and ARB postoperatively. Subjective Subjective Interval history since last seen: Pain control overnight obtained with the use of oral plus IV opiates. Still uncomfortable with any movement of her right leg. A little bit groggy from the pain medications. Denies stomach upset, pruritus or trouble breathing. No discomfort from the Becerril. Awaiting surgery later this morning. Exam Narrative Exam Narrative: Mildly sedated. Does not appear in any pain, no respiratory distress. Temperature 37.9. Blood pressure 146/72, SaO2 93% on room air. No facial asymmetry. Speech a little bit slow but not slurred. Clear lung blandon anterior, diminished at the bases, no crackles heard. Regular heart rhythm without S3-S4 or murmur. Bowel sounds present and no abdominal tenderness. Feet are warm. Cold touch sensation intact. No calf tenderness to palpation. Objective Objective Clinical Data: Abnormal lab results 07/01/19 07/01/19 07/01/19 Range/Units 15:00 15:00 22:01 RBC 3.54 L (4.00-5.20) m/cumm Hgb 11.0 L (12.0-15.5) g/dL Hct 32.9 L (36.0-46.0) % Absolute Lymphocytes 0.93 L (1.2-3.4) k/cumm Carbon Dioxide 32.7 H (21.0-32.0) mmol/L BUN 28 H (7-18) mg/dL Urine Blood Moderate H (Negative) Urine RBC 5-10 H (0-2) HPF 07/02/19 Range/Units 06:45 RBC 3.21 L (4.00-5.20) m/cumm Hgb 9.8 L (12.0-15.5) g/dL Hct 29.6 L (36.0-46.0) % Absolute Lymphocytes (1.2-3.4) k/cumm Carbon Dioxide (21.0-32.0) mmol/L BUN (7-18) mg/dL Urine Blood (Negative) Urine RBC (0-2) HPF Vital Signs Temperature 37.9 C H 07/02/19 08:11 Temperature Source Tympanic 07/02/19 07:26 Pulse 87 07/02/19 07:26 Pulse Rhythm Regular 07/02/19 08:15 Pulse 80 07/01/19 16:50 Respiratory Rate 18 07/02/19 07:26 Respiratory Effort 07/02/19 08:15 Respiratory Depth Normal 07/02/19 08:15 Respiratory Pattern Normal 07/02/19 08:15 Blood Pressure 146/72 H 07/02/19 07:26 Blood Pressure Mean 85 07/01/19 16:45 Pulse Oximetry 93 L 07/02/19 11:48 Oxygen Delivery Method Room Air 07/02/19 11:48 Oxygen Flow Rate 0 07/02/19 11:48 Pain Level 6 07/02/19 09:42 Intake & Output 07/01/19 07/02/19 07/02/19 23:59 11:59 23:59 Intake Total 583.333 / 583.333 975 / 975 Output Total 500 / 500 725 / 725 Balance 83.333 / 83.333 250 / 250 Weight 68.039 kg Intake: IV 583.333 / 583.333 975 / 975 Output: Urine 500 / 500 725 / 725 Other: Urine Color Yellow Yellow Urine Appearance Clear Clear Voiding Methods Indwelling Catheter Laboratory Results WBC 6.39 k/cumm (4.4-10.8) 07/02/19 06:45 RBC 3.21 m/cumm (4.00-5.20) L 07/02/19 06:45 Hgb 9.8 g/dL (12.0-15.5) L 07/02/19 06:45 Hct 29.6 % (36.0-46.0) L 07/02/19 06:45 MCV 92.2 fL (80-95) 07/02/19 06:45 MCH 30.5 pg (27.0-33.0) 07/02/19 06:45 MCHC 33.1 g/dL (32.0-36.0) 07/02/19 06:45 RDW 12.8 % (11.7-14.6) 07/02/19 06:45 Plt Count 169 x1000/uL (130-400) 07/02/19 06:45 MPV 9.6 fL (8.0-11.0) 07/02/19 06:45 Immature Gran % 0.2 % 07/01/19 15:00 Neutrophils % 81.3 07/01/19 15:00 Lymphocytes % 11.3 07/01/19 15:00 Monocytes % 6.8 07/01/19 15:00 Eosinophils % 0.2 07/01/19 15:00 Basophils % 0.2 07/01/19 15:00 Absolute Neutrophils 6.65 k/cumm (1.2-6.7) 07/01/19 15:00 Absolute Lymphocytes 0.93 k/cumm (1.2-3.4) L 07/01/19 15:00 Absolute Monocytes 0.56 k/cumm (0.11-0.7) 07/01/19 15:00 Absolute Eosinophils 0.02 k/cumm (0.0-0.7) 07/01/19 15:00 Absolute Basophils 0.02 k/cumm (0.0-0.2) 07/01/19 15:00 PT 10.4 sec (9.3-11.0) 07/01/19 15:00 INR 1.0 (0.9-1.1) 07/01/19 15:00 APTT 23.1 sec (21.0-31.4) 07/01/19 15:00 Sodium 142 mmol/L (136-145) 07/01/19 15:00 Potassium 3.6 mmol/L (3.5-5.1) 07/01/19 15:00 Chloride 103 mmol/L (98-107) 07/01/19 15:00 Carbon Dioxide 32.7 mmol/L (21.0-32.0) H 07/01/19 15:00 Anion Gap 6.3 mmol/L (3-11) 07/01/19 15:00 BUN 28 mg/dL (7-18) H 07/01/19 15:00 Creatinine 0.97 mg/dL (0.55-1.02) 07/01/19 15:00 Estimated GFR/1.73 m2 55.83 (mL/min/1.73m2) 07/01/19 15:00 Glucose 92 mg/dL (74-106) 07/01/19 15:00 Calcium 9.1 mg/dL (8.5-10.1) 07/01/19 15:00 Total Bilirubin 0.4 mg/dL (0.2-1.0) 07/01/19 15:00 AST 21 U/L (15-37) 07/01/19 15:00 ALT 24 U/L (14-59) 07/01/19 15:00 Alkaline Phosphatase 56 U/L (46-116) 07/01/19 15:00 Total Protein 6.7 g/dL (6.4-8.2) 07/01/19 15:00 Albumin 3.9 g/dL (3.4-5.0) 07/01/19 15:00 Urine Color Yellow (Yellow) 07/01/19 22:01 Urine Clarity Clear (Clear) 07/01/19 22:01 Urine pH 5.5 (5-8) 07/01/19 22:01 Ur Specific [place] 1.010 (1.005-1.025) 07/01/19 22:01 Urine Protein Negative mg/dL (Negative) 07/01/19 22:01 Urine Ketones Negative mg/dL (Negative) 07/01/19 22:01 Urine Blood Moderate (Negative) H 07/01/19 22:01 Urine Nitrite Negative (Negative) 07/01/19 22:01 Urine Bilirubin Negative (Negative) 07/01/19 22:01 Urine Urobilinogen 0.2 EU/dL (Up TO 0.2) 07/01/19 22:01 Ur Leukocyte Esterase Negative (Negative) 07/01/19 22:01 Urine RBC 5-10 HPF (0-2) H 07/01/19 22:01 Urine WBC 0-2 HPF (0-5) 07/01/19 22:01 Ur Epithelial Cells Not Applicable 07/01/19 22:01 Urine Crystals Not Applicable 07/01/19 22:01 Urine Bacteria Not Applicable 07/01/19 22:01 Urine Mucus Not Applicable 07/01/19 22:01 Ur Culture Indicated? No 07/01/19 22:01 Urine Glucose Negative mg/dL (Negative) 07/01/19 22:01 Patient ABO/Rh A Positive 07/01/19 16:05 Antibody Screen Negative 07/01/19 16:05 EKG shows a sinus rhythm with right bundle branch block that was not present on ECG done in January 2017. No acute ischemic changes. Chest x-ray without infiltrate.
--- NOTE | 2019-07-02 14:05 | DI.RAD_ITS ---
EXAM: XR HIP RT IN OR CLINICAL HISTORY: right hip fracture TECHNIQUE: 2D and realtime digital imaging was performed. Fluoroscopy was provided in the OR COMPARISON: No exams were available for comparison FINDINGS: C-arm fluoroscopy was utilized Dr. Easley during open reduction and internal fixation of subcapital f racture of the femur. Hard copy show placement of 3 lag screws across the fracture fragments. Fluor o time 82.1 seconds. IMPRESSION:
--- NOTE | 2019-07-02 14:06 | PHARADMIT ---
Addendum entered by Shahbaz Hoffman III 07/03/19 13:37: Pharmacy Note Subjective Patient had surgery yesterday to repair Femoral neck fracture. Surgeon recommended limited use on narcotics , given patients age and cognitive impairment. Objective VS-OK BP-148/69 Pain: 0-3 H&H 9.4/28.2 No other Labs. Assessment Patient restarted on Aggrenox(Patient-Own)Friday morning. APAP ordered as Scheduled for pain. Post-op Cefazolin completed. Home HCTZ not reordered. Plan Continue PT Original Note: Admission Pharmacy Clinical Review R impacted/displ femoral neck fracture Code Status Full Code Current Weight 68.039 kg Renally Cleared and Narrow Therapeutic Index Meds Crcl ~43.5 mL/min using adjusted body weight QTc Value / Action Taken QTc 464 BP Control, Fever BP 146/72 Tmax 38.4 yesterday Electrolytes reviewed within normal limits DVT Prophylaxis none- surgery today follow up post op Opiate Usage / Scheduled Bowel Regimen Ordered prn/prn Plt/SCr for Heparin / Enoxaparin plt 169 SCr 0.97 INR for Warfarin n/a H/H stable, WBC/Bands h/h 9.8/29.6 WBC 6.39 Antibiotic appropriateness cefazolin preop Cultures and Sensitivities none Surgical ABX d/c within 24 hr not ordered yet, follow up postop DM control / Insulin Dosing BG 92 none Heart Failure (Check EF%) (SHELLY's, B-Block, Diuretics) valsartan IV to PO Switch n/a Home Meds Reviewed -ipratropium may enhance the anticholinergic effect of loratadine -atorvastatin may increase the serum concentration of diltiazem and vice versa. consider using lower doses of atorvastatin when used in combination with diltiazem -multiple RESEARCHER depressants: tramadol, loratatdine, trazodone Home Meds Not Ordered ascorbic acid, aspirin/dipyridamole, calcet, famotidine, hydrochlorothiazide, ipratropium, loratadine, tramadol, trazodone, vitamin B complex Comments watch for restart of some home meds postop watch h/h (pt has chronic anemia per morning report)
--- NOTE | 2019-07-02 15:46 | ROE_ITS ---
Date of service: 07/02/19 Time of Service: 15:29 Operative Note Operative Note DATE OF PROCEDURE: 07/02/19 PRE-OP DIAGNOSIS: Right hip valgus impacted displaced femoral neck fracture POST-OP DIAGNOSIS: same PROCEDURE: Right hip closed reduction and internal fixation, CPT #63822 SURGEON: Mike Clay TRASH TRUCK DRIVER: None None TRASH TRUCK DRIVER: None None TRASH TRUCK DRIVER: Sue Voss ANESTHESIA: GETA and local ESTIMATED BLOOD LOSS: 5 COMPLICATIONS: None Patient was transported to: PACU Patient's condition: stable Implants: Synthes 7.3 mm cannulated screws with 16mm short threads. Inferior screw is 80 mm in length. The anterior superior and posterior superior screws are 75 mm in length. Indications: Please see medical record for details Findings: Valgus impacted displaced femoral neck fracture with minimal comminution and no displacement in the sagittal plane. Procedure Description: The patient was brought to the operating room. General anesthesia was induced. The patient was carefully transferred to the operating room table and positioned for hip fracture surgery taking care to avoid any displacement of this impacted femoral neck fracture. All bony prominences were well padded. Cefazolin 2g IV pre-operative antibiotics were administered. The correct patient, procedure, and side of the procedure were all verified prior to incision. The patient?s hip and thigh were prepped and draped in the usual sterile fashion. C-arm was used to percutaneously place the appropriate start point for the first guide wire on the lateral cortex of the proximal femur taking care to position the inferior most screw no more distal than the level of the lesser trochanter and in the central to posterior margin of the proximal femur. This guidewire was advanced under fluoroscopic guidance into subchondral bone. Correct position was confirmed in AP and lateral fluoroscopy. A 10 blade was used to extend this stab incision approximately 3 cm proximally. The knife was also used to split deep tissue and IT band in line with the fibers as well. A second guidewire was placed through this incision a couple centimeters more proximally and also in the posterior aspect of the femur advanced in a collinear fashion under fluoroscopic guidance into subchondral bone. A third guidewire was placed more superiorly and anteriorly and guided into subchondral bone in the femoral head in a similar fashion. Appropriate guidewire placement was confirmed on AP lateral and oblique fluoroscopy. A knife was passed deeply along each guidewire to clear a path for the depth gauge and screw placement. A depth gauge was used to measure the inferior, superior posterior, and superior anterior guidewires and 5 mm was subtracted from each to account for depth of guidewire placement. The cannulat ed drill was used to open the lateral cortex over each guidewire. Each screw was placed under power until as most of the way down starting with the inferior, then posterior, and then anterior screws. I then proceeded to tighten the screws starting with the posterior superior screw and then anterior superior screw, and lastly the inferior screw. All screws were final tightened in a sequential alternating fashion. Washers were omitted as each guidewire had only been placed once in the lateral proximal femoral cortex was intact. The guidewire was removed from each cannulated screw. Final AP and lateral fluoroscopic images were taken and confirmed appropriate fracture alignment and placement of the 3 screws in an inverted triangular position with good spread in the femoral head and neck starting above the lesser trochanter. All screw threads were past the fracture site in the femoral head. The small wound was copiously irrigated. Subcutaneous tissue was closed using 2-0 monocryl in a buried interrupted fashion. Skin was closed using 3-0 monocryl in a running fashion. Skin glue was applied to the incision. Incision was covered with Telfa, dry gauze, and covered with Tegaderms. The patient awoke from anesthesia without complication and was transferred to the recovery room in stable condition.
--- NOTE | 2019-07-02 16:01 | W.PM.PROGNOT ---
Date of Service Date of service: 07/02/19 Time of Service: 16:01 Assessment and Plan Assessment and plan (1) Displaced fracture of right femoral neck: Status: Acute Assessment and plan: 78-year-old female postop day #0 status post right hip percutaneous internal fixation Pain control?Multimodal. NSAIDs okay if medically tolerated. Advantageous to avoid narcotics given patient age and underlying cognitive impairment. 24 hours perioperative antibiotics ordered-cefazolin Progressive ambulation with physical therapy starting tomorrow. Recommend daily gentle passive and active hip range of motion while in bed or seated. Trend hemoglobin, transfuse as needed for hemodynamic instability or if needed for other medical reasons per primary medical team. Left lower extremity weightbearing as tolerated with assist device (e.g. walker) Resume home antiplatelet therapy starting 24 hours postoperatively for chemo DVT prophylaxis after postoperative hemoglobin stabilizes Bilateral lower extremity GORAN hose and SCDs. Remainder of care per primary medical hospitalist team and postoperative plan discussed with them Follow-up with Dr. Clay for a wound check and x-ray check in approximately 2-3 weeks. The patient's daughter should call the [facility] orthopedic office to confirm the appointment. All incisions are closed with buried dissolvable stitches. The skin is sealed with glue and all wounds are covered with Tegaderm adhesives. Keep all dressings intact, clean, and dry until orthopedic follow-up. May reinforce over the top as needed for drainage. Subjective Subjective Interval history since last seen: No acute events. Resting comfortably in PACU. Exam Const General: cooperative and no acute distress Orientation: alert and awake Limitations: mental status not altered and no language barrier Resp Effort & Inspection: normal respiratory effort, able to speak in complete sentences, no audible wheezes and no grunting General: deferred Skin General skin exam: no rashes or lesions noted Neuro General: alert and awake Cognition: normal cognition Speech: speech normal Extrem Other: Right hip Incision clean, dry, and intact No erythema or drainage No signs dvt or infection NVI distally Tolerates gentle hip logroll and flexion extension without discomfort All compartments soft Psych Appearance: grossly normal Mental Status: mental status grossly normal Speech and Movement: speech and movement normal Affect: normal affect Attitude: cooperative Objective Objective Clinical Data: Abnormal lab results 07/01/19 07/02/19 Range/Units 22:01 06:45 RBC 3.21 L (4.00-5.20) m/cumm Hgb 9.8 L (12.0-15.5) g/dL Hct 29.6 L (36.0-46.0) % Urine Blood Moderate H (Negative) Urine RBC 5-10 H (0-2) HPF Vital Signs Temperature 98.4 F 07/02/19 15:35 Temperature Source Temporal Artery Scan 07/02/19 15:35 Pulse 66 07/02/19 15:35 Pulse Rhythm Regular 07/02/19 08:15 Pulse 80 07/01/19 16:50 Respiratory Rate 15 07/02/19 15:35 Respiratory Effort 07/02/19 08:15 Respiratory Depth Normal 07/02/19 08:15 Respiratory Pattern Normal 07/02/19 08:15 Blood Pressure 115/70 07/02/19 15:35 Blood Pressure Mean 85 07/01/19 16:45 Pulse Oximetry 93 L 07/02/19 15:49 Respiratory End-tidal CO2 31 07/02/19 15:10 Oxygen Delivery Method Nasal Cannula 07/02/19 15:49 Oxygen Flow Rate 2 07/02/19 15:49 Pain Level 0 07/02/19 15:10 Intake & Output 07/01/19 07/02/19 07/02/19 23:59 11:59 23:59 Intake Total 583.333 / 583.333 975 / 1718.333 743.333 / 1718.333 Output Total 500 / 500 725 / 825 100 / 825 Balance 83.333 / 83.333 250 / 893.333 643.333 / 893.333 Weight 150 lb 0.005 oz Intake: IV 583.333 / 583.333 975 / 1688.333 713.333 / 1688.333 Oral 30 / 30 Output: Urine 500 / 500 725 / 825 100 / 825 Other: Urine Color Yellow Yellow Yellow Urine Appearance Clear Clear Clear Emesis Description None Voiding Methods Indwelling Catheter Laboratory Results WBC 6.39 k/cumm (4.4-10.8) 07/02/19 06:45 RBC 3.21 m/cumm (4.00-5.20) L 07/02/19 06:45 Hgb 9.8 g/dL (12.0-15.5) L 07/02/19 06:45 Hct 29.6 % (36.0-46.0) L 07/02/19 06:45 MCV 92.2 fL (80-95) 07/02/19 06:45 MCH 30.5 pg (27.0-33.0) 07/02/19 06:45 MCHC 33.1 g/dL (32.0-36.0) 07/02/19 06:45 RDW 12.8 % (11.7-14.6) 07/02/19 06:45 Plt Count 169 x1000/uL (130-400) 07/02/19 06:45 MPV 9.6 fL (8.0-11.0) 07/02/19 06:45 Immature Gran % 0.2 % 07/01/19 15:00 Neutrophils % 81.3 07/01/19 15:00 Lymphocytes % 11.3 07/01/19 15:00 Monocytes % 6.8 07/01/19 15:00 Eosinophils % 0.2 07/01/19 15:00 Basophils % 0.2 07/01/19 15:00 Absolute Neutrophils 6.65 k/cumm (1.2-6.7) 07/01/19 15:00 Absolute Lymphocytes 0.93 k/cumm (1.2-3.4) L 07/01/19 15:00 Absolute Monocytes 0.56 k/cumm (0.11-0.7) 07/01/19 15:00 Absolute Eosinophils 0.02 k/cumm (0.0-0.7) 07/01/19 15:00 Absolute Basophils 0.02 k/cumm (0.0-0.2) 07/01/19 15:00 PT 10.4 sec (9.3-11.0) 07/01/19 15:00 INR 1.0 (0.9-1.1) 07/01/19 15:00 APTT 23.1 sec (21.0-31.4) 07/01/19 15:00 Sodium 142 mmol/L (136-145) 07/01/19 15:00 Potassium 3.6 mmol/L (3.5-5.1) 07/01/19 15:00 Chloride 103 mmol/L (98-107) 07/01/19 15:00 Carbon Dioxide 32.7 mmol/L (21.0-32.0) H 07/01/19 15:00 Anion Gap 6.3 mmol/L (3-11) 07/01/19 15:00 BUN 28 mg/dL (7-18) H 07/01/19 15:00 Creatinine 0.97 mg/dL (0.55-1.02) 07/01/19 15:00 Estimated GFR/1.73 m2 55.83 (mL/min/1.73m2) 07/01/19 15:00 Glucose 92 mg/dL (74-106) 07/01/19 15:00 Calcium 9.1 mg/dL (8.5-10.1) 07/01/19 15:00 Total Bilirubin 0.4 mg/dL (0.2-1.0) 07/01/19 15:00 AST 21 U/L (15-37) 07/01/19 15:00 ALT 24 U/L (14-59) 07/01/19 15:00 Alkaline Phosphatase 56 U/L (46-116) 07/01/19 15:00 Total Protein 6.7 g/dL (6.4-8.2) 07/01/19 15:00 Albumin 3.9 g/dL (3.4-5.0) 07/01/19 15:00 Urine Color Yellow (Yellow) 07/01/19 22:01 Urine Clarity Clear (Clear) 07/01/19 22:01 Urine pH 5.5 (5-8) 07/01/19 22:01 Ur Specific [place] 1.010 (1.005-1.025) 07/01/19 22:01 Urine Protein Negative mg/dL (Negative) 07/01/19 22:01 Urine Ketones Negative mg/dL (Negative) 07/01/19 22:01 Urine Blood Moderate (Negative) H 07/01/19 22:01 Urine Nitrite Negative (Negative) 07/01/19 22:01 Urine Bilirubin Negative (Negative) 07/01/19 22:01 Urine Urobilinogen 0.2 EU/dL (Up TO 0.2) 07/01/19 22:01 Ur Leukocyte Esterase Negative (Negative) 07/01/19 22:01 Urine RBC 5-10 HPF (0-2) H 07/01/19 22:01 Urine WBC 0-2 HPF (0-5) 07/01/19 22:01 Ur Epithelial Cells Not Applicable 07/01/19 22:01 Urine Crystals Not Applicable 07/01/19 22:01 Urine Bacteria Not Applicable 07/01/19 22:01 Urine Mucus Not Applicable 07/01/19 22:01 Ur Culture Indicated? No 07/01/19 22:01 Urine Glucose Negative mg/dL (Negative) 07/01/19 22:01 Patient ABO/Rh A Positive 07/01/19 16:05 Antibody Screen Negative 07/01/19 16:05
--- NOTE | 2019-07-02 17:46 | PDOC.CMIN ---
- If Service Date Differs Date of service: 07/02/19 Time of Service: 17:46 Care Management Initial Assess REASON FOR HOSPITALIZATION:: Displaced fracture of right femoral neck PAST MEDICAL HISTORY/PAST SURGICAL HISTORY:: Medical History. Anxiety (Chronic). Chronic back pain (Acute). COPD (chronic obstructive pulmonary disease) (Chronic). CVA (cerebral vascular accident) (Chronic). HLD (hyperlipidemia) (Acute). Hypertension (Acute). Osteopenia (Acute). PVD (peripheral vascular disease) (Chronic). Sensory hearing loss (Acute). Surgical History. S/P matrixectomy of toe of right foot (Acute). Trigger finger, left (Acute) PREVIOUS FUNCTIONAL STATUS/SOCIAL/FAMILY SUPPORTS:: Randi lives in [place] at home alone. Her about six years ago. Her son, Jason, lives in a house on her property, just next door. Her daughter, Zulema, also lives nearby, and is identified as a main support. She does not drive, but otherwise is independent with ADL's. CURRENT FUNCTIONAL STATUS:: Randi was sitting up in her bed eating dinner when CM met with her. She reported that she had surgery earlier today to repair her hip, and that she was feeling good at this time. She asked CM about HH services, and as she lives in [place], CM advised that she would have [facility]. CM discussed that she would meet with PT who would evaluate her needs and make recommendations accordingly. She is agreeable to the plan. ADVANCE DIRECTIVES:: None on file. Has patient been provided with information about the portal?: No Did the patient sign up for the portal?: No CODE STATUS:: Full Code INSURANCE COVERAGE / FINANCIAL ISSUES:: [facility] CURRENT HOME/COMMUNITY SERVICES/EQUIPMENT:: Randi owns a FWW. She has had [facility] in the past, but does not currently. PRIMARY CARE PHYSICIAN:: Deborah Valle POTENTIAL DISCHARGE NEEDS:: Evaluation for further needs, follow up appointments PATIENT/FAMILY EDUCATION NEEDS:: Review discharge instructions regarding activity levels and medications, discussion of self care needs including Ask Me Three ANTICIPATED BARRIERS TO DISCHARGE:: None identified at this time. TRANSPORTATION:: Her daughter will drive her home via private vehicle when ready. PLAN:: Anticipate Randi will return home when medically cleared. She may need new orders for HH PT, which will be filled by [facility], if needed. Her daughter will drive her home via private vehicle when ready. She will follow up with Ortho, as recommended. CM will continue to follow.
[2019-07-02] MEDS: ceFAZolin 1 GM/50 ML BAG IVPB (20:08)
[2019-07-03] MEDS: Acetaminophen 325 MG TAB 650 MG PO ×5 (02:55→22:10)
[2019-07-03] MEDS: Lactated Ringers 1,000 ML 100 ML IV ×3 (03:29→23:40)
[2019-07-03] MEDS: ceFAZolin 1 GM/50 ML BAG IVPB ×2 (03:29→11:56)
[2019-07-03 03:33] VITALS: BP 175/68; PULSE 67; RESP 16; TEMP 36.6; O2SAT 98
[2019-07-03 07:20] VITALS: BP 173/76; PULSE 60; RESP 20; TEMP 37.4; O2SAT 98
[2019-07-03] MEDS: dilTIAZem CD 120 MG CAPCR PO (08:14)
[2019-07-03] MEDS: Atorvastatin 10 MG TAB PO (08:15)
[2019-07-03] MEDS: Valsartan 80 MG TAB 160 MG PO (08:15)
[2019-07-03] MEDS: Citalopram 10 MG TAB PO (08:15)
[2019-07-03 08:50] LABS: HCT 28.2 % (36.0-46.0); HGB 9.4 g/dL (12.0-15.5); Mean Corp. HGB Concentration 33.3 g/dL (32.0-36.0); Mean Corpuscular Hemoglobin 30.9 pg (27.0-33.0); Mean Corpuscular Volume 92.8 fL (80-95); Mean Platelet Volume 9.5 fL (8.0-11.0); Platelet Count 147 x1000/uL (130-400); RBC 3.04 m/cumm (4.00-5.20); RBC Distribution Width 12.4 % (11.7-14.6); White Blood Cell Count 7.54 k/cumm (4.4-10.8)
--- NOTE | 2019-07-03 09:34 | CMPROGNOTE_ITS ---
- If Service Date Differs Date of service: 07/03/19 Time of Service: 09:34 Care Management Progress Note S/O:Randi is engaged she was evaluated by PT with recommendations for home health PT. CM to fax referral to [facility]. A:Randi is a 78 year old female admitted with a right hip fracture repaired on 07/02/2018 P:Anticipate Randi will return home when medically cleared. She may need new orders for PT, agency is [facility] [phone], fax number is [phone] if needed. Her daughter will drive her home via private vehicle when ready. She will follow up with Ortho, as recommended. CM will continue to follow.
--- NOTE | 2019-07-03 10:59 | PT.INIE ---
Date of service: 07/03/19 Time of Service: 10:25 PT Notes Visit Reasons: R IMPACTED/DISPL FEMORAL NECK FRACTURE Inpatient Physical Therapy Evaluation Date: 07/03/2019 Referring Doctor: Dr. Clay PT Orders: PT CONSULT: Right impacted femoral neck fracture, status post ORIF Precautions: WBAT RLE Patient Profile/Admitting Diagnosis: Patient admitted after a fall at home on 07/01/2019. She underwent ORIF for femoral neck fracture 07/02/2019. PMHX: CVA, mild cognitive impairment, COPD, anxiety, HTN, HLD, PVD Social History/Home Situation: Patient lives in a private home in [place]. She lives alone, however has both a son and a daughter who lives nearby and are actively involved. She states that 1 of her children will likely stay with her when she returns home. She typically ambulates either without an assistive device or with a cane, although has an FW W which she utilizes when she is feeling dizzy, which is episodic and chronic. Equipment Owned/DME: Cane, FW W Subjective: Patient resting in bed at initiation of session. States that she has no pain at rest, although right hip discomfort with any movement of the right leg. She states that she been told years ago not to perform any hip flexion or leg lifts due to an inguinal hernia, and has concerns about initiating this motion. She is also extremely nervous about putting any weight on her right leg. She states that she has been dizzy off and on this morning, although this is at about her baseline. Objective: General Observation: Resting in bed with IV in RUE, Becerril catheter in place. No supplemental oxygen at time of consult. Mental Status: A&O x3 Pain: 0/10 at rest Vital Signs: Resting BP is 146/68 in supine. In sitting position she is 160/70. SaO2 on room air is 86-88%. With return to 2 L supplemental oxygen, she quickly re-saturates to 95%. ROM: Right Upper Extremity: Grossly WFL Left Upper Extremity: Grossly WFL Right Lower Extremity: In sitting position, patient tolerates 70 degrees hip flexion. With active assisted heel slides, she tolerates about 60 degrees, limited by pain and apprehension. External rotation lacks 35 degrees in hook lying position, with AAROM. Hip IR allows neutral only. Left Lower Extremity: Grossly WFL Strength: Right Upper Extremity: Biceps 4+/5. Triceps 4+/5. Supply Chain Project Manager is strong and equal Left Upper Extremity:Biceps 4+/5. Triceps 4+/5. Supply Chain Project Manager is strong and equal Right Lower Extremity: Hip flexion 3-/5. Quads 3-/5, with patient demonstrating improved quad recruitment with repetitive L AQ, although unable to achieve full knee extension actively. Ankle dorsiflexion 3/5 or greater. Left Lower Extremity: Hip flexion 4+/5. Quads 5/5. Sensation: Intact distally Bed Mobility/Transfers: Supine?sit: Mod assist x1 with HOB at 35 degrees Sit?stand: Min assist with bed elevated Sit?stand: Min assist with max cues for hand placement and technique Gait: Patient ambulates 15 feet with FW W, WBAT RLE, and CGA x2. She requires max cues for technique and equipment management. Balance: Static Sitting: Good Dynamic Sitting: Fair Static Standing: Fair Dynamic Standing: Fair Special Tests: Mobility Limitations Standardized Measure [facility] AM-PAC 6 clicks Basic Mobility Inpatient Short Form: Raw Score: 15 CMS Score: 58% deficit Informed Consent/Education: Patient instructed in purpose of PT consult and plan of care. Treatment:Today's session consisted of evaluation, followed by instruction in a seated exercise program, consisting of ankle pumps and L AQ, each for 10 repetitions to be performed hourly when patient is up in the chair. She requires significant cueing for L AQ. She also received gentle AAROM to the right hip in supine in hook lying position, with range of motion measurements as noted above. Assessment: Patient is a 78 year old female referred to physical therapy services with the diagnosis of right femoral neck fracture, 1 day status post ORIF. Patient presents with clinical signs and symptoms consistent with postoperative status, as demonstrated by the following impairment level findings: 1. Decreased right hip range of motion 2. Decreased functional strength RLE 3. Gait impairments 4. Decreased activity tolerance 5. Fear avoidance behaviors Impairments are contributing to the following functional limitations: 1. Decreased independence with transfers 2. Unable to independently perform ADLs 3. Decreased activity tolerance 4. Unable to tolerate household or community distance ambulation 5. Unable to independently perform bed mobility 6. Unable to manage stairs Patient is assessed as a Moderate [id number] complexity based on the following: History: 78-year-old female presenting 1 day status post ORIF for repair of femoral neck fracture after mechanical fall at home. Complicating factors include the fact the patient lives independently and has mild cognitive impairment. She is also status post CVA and suffers from COPD and anxiety. Examination: Functional limitations as noted above Presentation: Evolving due to acute postoperative status Decision Making: Moderate complexity Goals: Goals X1 week 1. Supine-Sit: Supervision 2. Sit-Supine: Supervision 3. Sit-Stand : Supervision 4. Stand-Sit: Supervision 5. Bed-Chair : Supervision with FW W 6. Chair-Bed : Supervision with FW W 7. Gait : Supervision with FW W x50 feet 8. Stairs: Min assist 9. Independent with home exercise program Plan of Care/Treatment Plan: 1-2x/day, 7 days/week x 1 week. Plan of care has been reviewed with the OPENING MACHINE CLEANER providing the service under Physical Therapy direction. Initiate Physical Therapy intervention for strengthening, bed mobility, transfers, gait, stairs, balance training, use of assistive device. DISCHARGE RECOMMENDATIONS: Home with home health PT and assistance from family. No equipment needs anticipated TREATMENT CODE/TIME: 1025?1055 ([id number], [id number]) Ela Rouse, PT, DPT [facility], [facility]
[2019-07-03 11:30] VITALS: BP 148/69; PULSE 71; RESP 19; TEMP 37.1; O2SAT 90
--- NOTE | 2019-07-03 13:10 | PGE_ITS ---
Date of Service Date of service: 07/03/19 Time of Service: 13:10 Assessment and Plan Assessment and plan (1) Displaced fracture of right femoral neck: Start date: 07/03/19 Start time: 13:17 Status: Acute Assessment and plan: POD 1. Pain controlled with IV tylenol and oxy continued. Will restart aggrenox in the am. H/H stable. Monitor in am. D/C jenkins today. (2) History of cerebrovascular accident (CVA) due to ischemia: Start date: 07/03/19 Start time: 13:19 Status: Acute Assessment and plan: No new neurologic symptoms. Aggrenox restarted in am. (3) Anemia due to blood loss: Start date: 07/03/19 Start time: 13:19 Status: Acute Assessment and plan: Stable today. Continue to monitor. (4) Hypertension: Start date: 07/03/19 Start time: 13:20 Status: Acute Assessment and plan: Diuretic on hold. Monitor blood pressure postop. At this point planning on continuing her outpatient calcium channel eliza and ARB postoperatively. Subjective Subjective Patient reports: feels better Interval history since last seen: POD 1 pain minimal. Feeling better today. Exam Narrative Exam Narrative: Const: Pleasant 78 y.o female sitting up in chair. States pain is minimal. Eyes: PERRLA, EOMI, Neck: No lymphedema, or goiter, thyroid intact. Chest: symmetrical, Resp: LSC, Breath sounds even and unlabored. Cardio: RRR, no murmur appreciated. GI: Abd soft nontender Skin: incision to right hip c/d/i Neuro: AAO x 3 Extrem: no clubbing, cyanosis or edema. PPPX 2. Objective Objective Clinical Data: Abnormal lab results 07/03/19 Range/Units 08:32 RBC 3.04 L (4.00-5.20) m/cumm Hgb 9.4 L (12.0-15.5) g/dL Hct 28.2 L (36.0-46.0) % Vital Signs Temperature 37.1 C 07/03/19 11:30 Temperature Source Tympanic 07/03/19 11:30 Pulse 71 07/03/19 11:30 Pulse Rhythm Regular 07/03/19 11:02 Pulse 80 07/01/19 16:50 Respiratory Rate 19 07/03/19 11:30 Respiratory Effort Non-Labored 07/03/19 11:02 Respiratory Depth Normal 07/03/19 11:02 Respiratory Pattern Normal 07/03/19 11:02 Blood Pressure 148/69 H 07/03/19 11:30 Blood Pressure Mean 85 07/01/19 16:45 Pulse Oximetry 90 L 07/03/19 11:30 Respiratory End-tidal CO2 31 07/02/19 15:10 Oxygen Delivery Method Room Air 07/03/19 11:30 Oxygen Flow Rate 0 07/03/19 11:30 Pain Level 0 07/03/19 11:30 Comment 07/03/19 07:20 Intake & Output 07/02/19 07/03/19 07/03/19 23:59 11:59 23:59 Intake Total 1838.333 / 2813.333 1960 / 1960 Output Total 850 / 1575 500 / 500 Balance 988.333 / 5511.554 1402 / 1460 Intake: IV 1308.333 / 2283.333 1050 / 1050 Oral 530 / 530 910 / 910 Output: Urine 850 / 1575 500 / 500 Other: Urine Color Pale Pale Urine Appearance Clear Clear Emesis Description None Laboratory Results WBC 7.54 k/cumm (4.4-10.8) 07/03/19 08:32 RBC 3.04 m/cumm (4.00-5.20) L 07/03/19 08:32 Hgb 9.4 g/dL (12.0-15.5) L 07/03/19 08:32 Hct 28.2 % (36.0-46.0) L 07/03/19 08:32 MCV 92.8 fL (80-95) 07/03/19 08:32 MCH 30.9 pg (27.0-33.0) 07/03/19 08:32 MCHC 33.3 g/dL (32.0-36.0) 07/03/19 08:32 RDW 12.4 % (11.7-14.6) 07/03/19 08:32 Plt Count 147 x1000/uL (130-400) 07/03/19 08:32 MPV 9.5 fL (8.0-11.0) 07/03/19 08:32 Immature Gran % 0.2 % 07/01/19 15:00 Neutrophils % 81.3 07/01/19 15:00 Lymphocytes % 11.3 07/01/19 15:00 Monocytes % 6.8 07/01/19 15:00 Eosinophils % 0.2 07/01/19 15:00 Basophils % 0.2 07/01/19 15:00 Absolute Neutrophils 6.65 k/cumm (1.2-6.7) 07/01/19 15:00 Absolute Lymphocytes 0.93 k/cumm (1.2-3.4) L 07/01/19 15:00 Absolute Monocytes 0.56 k/cumm (0.11-0.7) 07/01/19 15:00 Absolute Eosinophils 0.02 k/cumm (0.0-0.7) 07/01/19 15:00 Absolute Basophils 0.02 k/cumm (0.0-0.2) 07/01/19 15:00 PT 10.4 sec (9.3-11.0) 07/01/19 15:00 INR 1.0 (0.9-1.1) 07/01/19 15:00 APTT 23.1 sec (21.0-31.4) 07/01/19 15:00 Sodium 142 mmol/L (136-145) 07/01/19 15:00 Potassium 3.6 mmol/L (3.5-5.1) 07/01/19 15:00 Chloride 103 mmol/L (98-107) 07/01/19 15:00 Carbon Dioxide 32.7 mmol/L (21.0-32.0) H 07/01/19 15:00 Anion Gap 6.3 mmol/L (3-11) 07/01/19 15:00 BUN 28 mg/dL (7-18) H 07/01/19 15:00 Creatinine 0.97 mg/dL (0.55-1.02) 07/01/19 15:00 Estimated GFR/1.73 m2 55.83 (mL/min/1.73m2) 07/01/19 15:00 Glucose 92 mg/dL (74-106) 07/01/19 15:00 Calcium 9.1 mg/dL (8.5-10.1) 07/01/19 15:00 Total Bilirubin 0.4 mg/dL (0.2-1.0) 07/01/19 15:00 AST 21 U/L (15-37) 07/01/19 15:00 ALT 24 U/L (14-59) 07/01/19 15:00 Alkaline Phosphatase 56 U/L (46-116) 07/01/19 15:00 Total Protein 6.7 g/dL (6.4-8.2) 07/01/19 15:00 Albumin 3.9 g/dL (3.4-5.0) 07/01/19 15:00 Urine Color Yellow (Yellow) 07/01/19 22:01 Urine Clarity Clear (Clear) 07/01/19 22:01 Urine pH 5.5 (5-8) 07/01/19 22:01 Ur Specific [place] 1.010 (1.005-1.025) 07/01/19 22:01 Urine Protein Negative mg/dL (Negative) 07/01/19 22:01 Urine Ketones Negative mg/dL (Negative) 07/01/19 22:01 Urine Blood Moderate (Negative) H 07/01/19 22:01 Urine Nitrite Negative (Negative) 07/01/19 22:01 Urine Bilirubin Negative (Negative) 07/01/19 22:01 Urine Urobilinogen 0.2 EU/dL (Up TO 0.2) 07/01/19 22:01 Ur Leukocyte Esterase Negative (Negative) 07/01/19 22:01 Urine RBC 5-10 HPF (0-2) H 07/01/19 22:01 Urine WBC 0-2 HPF (0-5) 07/01/19 22:01 Ur Epithelial Cells Not Applicable 07/01/19 22:01 Urine Crystals Not Applicable 07/01/19 22:01 Urine Bacteria Not Applicable 07/01/19 22:01 Urine Mucus Not Applicable 07/01/19 22:01 Ur Culture Indicated? No 07/01/19 22:01 Urine Glucose Negative mg/dL (Negative) 07/01/19 22:01 Patient ABO/Rh A Positive 07/01/19 16:05 Antibody Screen Negative 07/01/19 16:05
[2019-07-03 15:15] VITALS: BP 148/64; PULSE 66; RESP 17; TEMP 37.4; O2SAT 91
[2019-07-03] MEDS: oxyCODONE 5 MG TAB PO ×2 (15:25→23:41)
[2019-07-03 19:35] VITALS: BP 132/60; PULSE 77; RESP 16; TEMP 37.5; O2SAT 95
[2019-07-03 23:42] VITALS: BP 156/75; PULSE 83; RESP 17; TEMP 37.1; O2SAT 94
[2019-07-04] MEDS: traZODone 50 MG TAB PO ×2 (01:01→23:34)
[2019-07-04] MEDS: Acetaminophen 325 MG TAB 650 MG PO ×2 (02:49→06:34)
[2019-07-04 02:52] VITALS: BP 125/58; PULSE 77; RESP 18; TEMP 37.3; O2SAT 93
[2019-07-04 07:30] VITALS: BP 150/75; PULSE 66; RESP 17; TEMP 37.6; O2SAT 91
[2019-07-04 07:46] LABS: HCT 24.6 % (36.0-46.0); HGB 8.1 g/dL (12.0-15.5); Mean Corp. HGB Concentration 32.9 g/dL (32.0-36.0); Mean Corpuscular Hemoglobin 30.8 pg (27.0-33.0); Mean Corpuscular Volume 93.5 fL (80-95); Mean Platelet Volume 9.8 fL (8.0-11.0); Platelet Count 138 x1000/uL (130-400); RBC 2.63 m/cumm (4.00-5.20); RBC Distribution Width 12.6 % (11.7-14.6); White Blood Cell Count 4.82 k/cumm (4.4-10.8)
[2019-07-04 07:56] LABS: Anion Gap 6.7 mmol/L (3-11); BUN 22 mg/dL (7-18); CO2 30.3 mmol/L (21.0-32.0); CREATININE 0.86 mg/dL (0.55-1.02); Calcium 8.2 mg/dL (8.5-10.1); Chloride 106 mmol/L (98-107); Glucose 90 mg/dL (74-106); Magnesium 1.7 mg/dL (1.8-2.4); Sodium 143 mmol/L (136-145)
--- NOTE | 2019-07-04 08:14 | PT.INTREAT ---
Date of service: 07/04/19 Time of Service: 08:14 PT Notes Visit Reasons: R IMPACTED/DISPL FEMORAL NECK FRACTURE 07/04/19 SUBJECTIVE: Randi stating she has a little more discomfort in the right hip this morning. She notes some dizziness upon arising in her bed although dissipates with some time sitting at EOB. OBJECTIVE: Supine in bed. Agreeable to PT treatment. TRANSFERS Supine to sit: min A Sit to stand: CGA Stand to sit: CGA, VC's GAIT Device: FWW Weight bearing: AT R Assist: CGA Distance: 40' Deviation: Step to pattern, cues for walker safety and technique. THEREX: Light LE strengthening and AROM, PROM to the right hip. See flow sheet. ASSESSMENT: Despite increase in discomfort today she is mobilizing with less assistance. She tolerates 40' of ambulation today with minor cueing for proper walker management. PLAN: Continue current POC. Treatment time: 25 minutes [id number], [id number] Kimmy Key, HVAC RESIDENTIAL SERVICE TECHNICIAN
[2019-07-04] MEDS: Citalopram 10 MG TAB PO (08:42)
[2019-07-04] MEDS: dilTIAZem CD 120 MG CAPCR PO (08:42)
[2019-07-04] MEDS: Atorvastatin 10 MG TAB PO (08:42)
[2019-07-04] MEDS: Valsartan 80 MG TAB 160 MG PO (08:42)
[2019-07-04] MEDS: Acetaminophen 500 MG TAB PO ×4 (09:40→23:34)
[2019-07-04 11:25] VITALS: BP 117/68; PULSE 73; RESP 18; TEMP 36.7; O2SAT 93
[2019-07-04] MEDS: oxyCODONE 5 MG TAB PO ×2 (11:44→23:34)
--- NOTE | 2019-07-04 12:08 | W.PM.PROGNOT ---
Date of Service Date of service: 07/04/19 Time of Service: 12:08 Assessment and Plan Assessment and plan (1) Displaced fracture of right femoral neck: Start date: 07/04/19 Start time: 12:09 Status: Acute Assessment and plan: POD 2. Pain controlled with PO tylenol and oxy continued. Aggrenox restarted. H/H stable. Discharge tomorrow if ok with ortho. (2) History of cerebrovascular accident (CVA) due to ischemia: Start date: 07/04/19 Status: Acute Assessment and plan: No new neurologic symptoms. Aggrenox restarted (3) Anemia due to blood loss: Start date: 07/04/19 Start time: 12:11 Status: Acute Assessment and plan: Stable today. Continue to monitor. (4) Hypertension: Start date: 07/04/19 Start time: 12:11 Status: Acute Assessment and plan: Restart diuretic. At this point planning on continuing her outpatient calcium channel eliza and ARB postoperatively. Above case discussed with Dr. Soto who is in agreement. Subjective Subjective Patient reports: feels better Interval history since last seen: POD 2 doing well. Voiding without difficulty. OOB with PT. Patient will be discharged home tomorrow. Exam Narrative Exam Narrative: Const: Pleasant 78 y.o female sitting up in chair. States pain is minimal. Eyes: PERRLA, EOMI, Neck: No lymphedema, or goiter, thyroid intact. Chest: symmetrical, Resp: LSC, Breath sounds even and unlabored. Cardio: RRR, no murmur appreciated. GI: Abd soft nontender Skin: incision to right hip c/d/i Neuro: AAO x 3 Extrem: no clubbing, cyanosis or edema. PPPX 2. Objective Objective Clinical Data: Abnormal lab results 07/04/19 07/04/19 Range/Units 07:25 07:25 RBC 2.63 L (4.00-5.20) m/cumm Hgb 8.1 L (12.0-15.5) g/dL Hct 24.6 L (36.0-46.0) % BUN 22 H D (7-18) mg/dL Calcium 8.2 L (8.5-10.1) mg/dL Magnesium 1.7 L (1.8-2.4) mg/dL Vital Signs Temperature 37.6 C H 07/04/19 07:30 Temperature Source Tympanic 07/04/19 07:30 Pulse 66 07/04/19 07:30 Pulse Rhythm Regular 07/04/19 09:54 Pulse 80 07/01/19 16:50 Respiratory Rate 17 07/04/19 07:30 Respiratory Effort Non-Labored 07/04/19 09:54 Respiratory Depth Normal 07/04/19 09:54 Respiratory Pattern Normal 07/04/19 09:54 Blood Pressure 150/75 H 07/04/19 07:30 Blood Pressure Mean 85 07/01/19 16:45 Pulse Oximetry 91 L 07/04/19 07:30 Respiratory End-tidal CO2 31 07/02/19 15:10 Oxygen Delivery Method Room Air 07/04/19 07:30 Oxygen Flow Rate 0 07/04/19 07:30 Pain Level 8 07/04/19 11:44 Comment 07/04/19 07:30 Intake & Output 07/03/19 07/04/19 07/04/19 23:59 11:59 23:59 Intake Total 2545 / 4505 1400 / 1400 Output Total 400 / 900 Balance 2145 / 3605 1400 / 1400 Intake: IV 2055 / 3105 1000 / 1000 Oral 490 / 1400 400 / 400 Output: Urine 400 / 900 Other: Urine Color Yellow Urine Appearance Clear Clear Comment voided in toilet large amount Stool Size Small Stool Characteristics Formed Voiding Methods Toilet Laboratory Results WBC 4.82 k/cumm (4.4-10.8) D 07/04/19 07:25 RBC 2.63 m/cumm (4.00-5.20) L 07/04/19 07:25 Hgb 8.1 g/dL (12.0-15.5) L 07/04/19 07:25 Hct 24.6 % (36.0-46.0) L 07/04/19 07:25 MCV 93.5 fL (80-95) 07/04/19 07:25 MCH 30.8 pg (27.0-33.0) 07/04/19 07:25 MCHC 32.9 g/dL (32.0-36.0) 07/04/19 07:25 RDW 12.6 % (11.7-14.6) 07/04/19 07:25 Plt Count 138 x1000/uL (130-400) 07/04/19 07:25 MPV 9.8 fL (8.0-11.0) 07/04/19 07:25 Immature Gran % 0.2 % 07/01/19 15:00 Neutrophils % 81.3 07/01/19 15:00 Lymphocytes % 11.3 07/01/19 15:00 Monocytes % 6.8 07/01/19 15:00 Eosinophils % 0.2 07/01/19 15:00 Basophils % 0.2 07/01/19 15:00 Absolute Neutrophils 6.65 k/cumm (1.2-6.7) 07/01/19 15:00 Absolute Lymphocytes 0.93 k/cumm (1.2-3.4) L 07/01/19 15:00 Absolute Monocytes 0.56 k/cumm (0.11-0.7) 07/01/19 15:00 Absolute Eosinophils 0.02 k/cumm (0.0-0.7) 07/01/19 15:00 Absolute Basophils 0.02 k/cumm (0.0-0.2) 07/01/19 15:00 PT 10.4 sec (9.3-11.0) 07/01/19 15:00 INR 1.0 (0.9-1.1) 07/01/19 15:00 APTT 23.1 sec (21.0-31.4) 07/01/19 15:00 Sodium 143 mmol/L (136-145) 07/04/19 07:25 Potassium 4.0 mmol/L (3.5-5.1) 07/04/19 07:25 Chloride 106 mmol/L (98-107) 07/04/19 07:25 Carbon Dioxide 30.3 mmol/L (21.0-32.0) 07/04/19 07:25 Anion Gap 6.7 mmol/L (3-11) 07/04/19 07:25 BUN 22 mg/dL (7-18) H D 07/04/19 07:25 Creatinine 0.86 mg/dL (0.55-1.02) 07/04/19 07:25 Estimated GFR/1.73 m2 >= 60.00 (mL/min/1.73m2) 07/04/19 07:25 Glucose 90 mg/dL (74-106) 07/04/19 07:25 Calcium 8.2 mg/dL (8.5-10.1) L 07/04/19 07:25 Magnesium 1.7 mg/dL (1.8-2.4) L 07/04/19 07:25 Total Bilirubin 0.4 mg/dL (0.2-1.0) 07/01/19 15:00 AST 21 U/L (15-37) 07/01/19 15:00 ALT 24 U/L (14-59) 07/01/19 15:00 Alkaline Phosphatase 56 U/L (46-116) 07/01/19 15:00 Total Protein 6.7 g/dL (6.4-8.2) 07/01/19 15:00 Albumin 3.9 g/dL (3.4-5.0) 07/01/19 15:00 Urine Color Yellow (Yellow) 07/01/19 22:01 Urine Clarity Clear (Clear) 07/01/19 22:01 Urine pH 5.5 (5-8) 07/01/19 22:01 Ur Specific [place] 1.010 (1.005-1.025) 07/01/19 22:01 Urine Protein Negative mg/dL (Negative) 07/01/19 22:01 Urine Ketones Negative mg/dL (Negative) 07/01/19 22:01 Urine Blood Moderate (Negative) H 07/01/19 22:01 Urine Nitrite Negative (Negative) 07/01/19 22:01 Urine Bilirubin Negative (Negative) 07/01/19 22:01 Urine Urobilinogen 0.2 EU/dL (Up TO 0.2) 07/01/19 22:01 Ur Leukocyte Esterase Negative (Negative) 07/01/19 22:01 Urine RBC 5-10 HPF (0-2) H 07/01/19 22:01 Urine WBC 0-2 HPF (0-5) 07/01/19 22:01 Ur Epithelial Cells Not Applicable 07/01/19 22:01 Urine Crystals Not Applicable 07/01/19 22:01 Urine Bacteria Not Applicable 07/01/19 22:01 Urine Mucus Not Applicable 07/01/19 22:01 Ur Culture Indicated? No 07/01/19 22:01 Urine Glucose Negative mg/dL (Negative) 07/01/19 22:01 Patient ABO/Rh A Positive 07/01/19 16:05 Antibody Screen Negative 07/01/19 16:05
[2019-07-04] MEDS: MAGNESIUM SULFATE 4 GM/100 ML BAG IVPB (12:16)
[2019-07-04] MEDS: hydroCHLOROthiazide 25 MG TAB PO (12:22)
[2019-07-04 15:55] VITALS: BP 120/65; PULSE 69; RESP 17; TEMP 37.3; O2SAT 91
--- NOTE | 2019-07-04 19:58 | PDOC.CMPRO ---
- If Service Date Differs Date of service: 07/04/19 Time of Service: 19:58 Care Management Progress Note S/O:Randi is engaged with CM during assessment. She states she is a little more tired today she and her hip is more painful. She did use some oxycodone to treat the pain, she also tried to move her right leg more in the middle of the night doing her PT exercises. She states she is hopeful she will be able to return home with her family on Friday. She will have home health services for PT which she is agreeable with . She reports that her family will not be able to pick her up until the afternoon. A:Randi is a 78 year old female admitted with a right hip fracture repaired on 07/02/2018 P:Anticipate Randi will return home when medically cleared. She may need new orders for PT, agency is [facility] [phone], fax number is [phone] if needed. Her daughter will drive her home via private vehicle when ready. She will follow up with Ortho, as recommended. CM will continue to follow.
[2019-07-04 23:28] VITALS: BP 139/54; PULSE 78; RESP 18; TEMP 36.8; O2SAT 93
[2019-07-05 04:20] VITALS: BP 132/68; PULSE 75; RESP 18; TEMP 37.2; O2SAT 96
[2019-07-05] MEDS: Acetaminophen 500 MG TAB PO ×3 (06:10→13:59)
[2019-07-05 07:26] LABS: HCT 25.7 % (36.0-46.0); HGB 8.4 g/dL (12.0-15.5); Mean Corp. HGB Concentration 32.7 g/dL (32.0-36.0); Mean Corpuscular Volume 94.8 fL (80-95); Mean Platelet Volume 10.1 fL (8.0-11.0); Platelet Count 169 x1000/uL (130-400); RBC 2.71 m/cumm (4.00-5.20); RBC Distribution Width 13.2 % (11.7-14.6); White Blood Cell Count 4.22 k/cumm (4.4-10.8)
[2019-07-05 07:30] VITALS: BP 168/83; PULSE 67; RESP 17; TEMP 37; O2SAT 96
[2019-07-05 07:35] LABS: Anion Gap 4.5 mmol/L (3-11); BUN 20 mg/dL (7-18); CO2 31.5 mmol/L (21.0-32.0); CREATININE 0.89 mg/dL (0.55-1.02); Calcium 8.3 mg/dL (8.5-10.1); Chloride 104 mmol/L (98-107); Glucose 93 mg/dL (74-106); Magnesium 2.2 mg/dL (1.8-2.4); Potassium 4.3 mmol/L (3.5-5.1); Sodium 140 mmol/L (136-145)
[2019-07-05] MEDS: dilTIAZem CD 120 MG CAPCR PO (08:25)
[2019-07-05] MEDS: Atorvastatin 10 MG TAB PO (08:25)
[2019-07-05] MEDS: Valsartan 80 MG TAB 160 MG PO (08:25)
[2019-07-05] MEDS: Citalopram 10 MG TAB PO (08:25)
[2019-07-05] MEDS: hydroCHLOROthiazide 25 MG TAB PO (08:25)
--- NOTE | 2019-07-05 09:33 | PGE_ITS ---
Date of Service Date of service: 07/05/19 Time of Service: 09:34 Assessment and Plan Assessment and plan (1) Displaced fracture of right femoral neck: Status: Acute Assessment and plan: 78-year-old female postop day #3 status post right hip percutaneous internal fixation Pain control?Multimodal. NSAIDs okay if medically tolerated. Advantageous to avoid narcotics given patient age and underlying cognitive impairment. Progressive ambulation with physical therapy. Recommend daily gentle passive and active hip range of motion while in bed or seated. Patient reminded that although her hip fracture has been fixated it is still very much broken and needs time approximately 2 to 3 months to heal. She is doing very well, but needs to be patient with her recovery. I expect her to have some increasing soreness and pain about the hip after prolonged weightbearing and walking in the early postoperative period. Postoperative hemoglobin stabilized at 8.4 this morning. Transfuse as needed for symptoms or hemodynamic instability per primary medical team. Left lower extremity weightbearing as tolerated with assist device (e.g. walker) Home antiplatelet therapy (Aggrenox) as chemo DVT prophylaxis Bilateral lower extremity GORAN hose and SCDs while inpatient. TEDs as needed at home for lower extremity edema. Follow-up with Dr. Clay for a wound check and x-ray check in approximately 2-3 weeks. The patient's daughter should call the [facility] orthopedic office to confirm the appointment. All incisions are closed with buried dissolvable stitches. The skin is sealed with glue and all wounds are covered with Tegaderm adhesives. Keep all dressings intact, clean, and dry until orthopedic follow-up. Case discussed with admitting hospitalist and patient is ok for discharge from orthopedic perspective Subjective Subjective Interval history since last seen: No acute events. Resting comfortably in chair. Only complaints are of increased soreness yesterday with walking after ambulating what sounds like a significant amount around the hallways on Friday on postoperative day #1. Exam Const General: cooperative and no acute distress Orientation: alert and awake Limitations: mental status not altered and no language barrier Resp Effort & Inspection: normal respiratory effort, able to speak in complete sentences, no audible wheezes and no grunting General: deferred Skin General skin exam: no rashes or lesions noted Neuro General: alert and awake Cognition: normal cognition Speech: speech normal Extrem Other: Right hip Incision clean, dry, and intact No erythema or drainage No signs dvt or infection NVI distally Tolerates gentle hip logroll and flexion extension without discomfort Demonstrates active hip flexion extension All compartments soft Psych Appearance: grossly normal Mental Status: mental status grossly normal and other (With some limitations at baseline memory loss) Speech and Movement: speech and movement normal Mood: other (With some limitations at baseline memory loss) Affect: normal affect Attitude: cooperative Objective Objective Clinical Data: Abnormal lab results 07/05/19 07/05/19 Range/Units 06:40 06:40 WBC 4.22 L (4.4-10.8) k/cumm RBC 2.71 L (4.00-5.20) m/cumm Hgb 8.4 L (12.0-15.5) g/dL Hct 25.7 L (36.0-46.0) % BUN 20 H (7-18) mg/dL Calcium 8.3 L (8.5-10.1) mg/dL Vital Signs Temperature 98.6 F 07/05/19 07:30 Temperature Source Tympanic 07/05/19 07:30 Pulse 67 07/05/19 07:30 Pulse Rhythm Regular 07/05/19 06:00 Pulse 80 07/01/19 16:50 Respiratory Rate 17 07/05/19 07:30 Respiratory Effort Non-Labored 07/05/19 06:00 Respiratory Depth Normal 07/05/19 06:00 Respiratory Pattern Normal 07/05/19 06:00 Blood Pressure 168/83 H 07/05/19 07:30 Blood Pressure Mean 85 07/01/19 16:45 Pulse Oximetry 96 07/05/19 07:30 Respiratory End-tidal CO2 31 07/02/19 15:10 Oxygen Delivery Method Room Air 07/05/19 07:30 Oxygen Flow Rate 0 07/05/19 07:30 Pain Level 0 07/05/19 07:30 Comment 07/04/19 07:30 Intake & Output 07/04/19 07/04/19 07/05/19 11:59 23:59 11:59 Intake Total 1400 / 2550 1150 / 2550 Output Total 300 / 300 550 / 550 Balance 1400 / 2250 850 / 2250 -550 / -550 Intake: IV 1000 / 2000 1000 / 2000 Oral 400 / 550 150 / 550 Output: Urine 300 / 300 550 / 550 Other: Urine Color Pale Yellow Urine Appearance Clear Clear Clear Urine Odor None Comment voided in toilet large amount patient voids to the bathroom Stool Size Small Large Stool Characteristics Formed Soft Hard Formed Brown Voiding Methods Toilet Toilet Laboratory Results WBC 4.22 k/cumm (4.4-10.8) L 07/05/19 06:40 RBC 2.71 m/cumm (4.00-5.20) L 07/05/19 06:40 Hgb 8.4 g/dL (12.0-15.5) L 07/05/19 06:40 Hct 25.7 % (36.0-46.0) L 07/05/19 06:40 MCV 94.8 fL (80-95) 07/05/19 06:40 MCH 31.0 pg (27.0-33.0) 07/05/19 06:40 MCHC 32.7 g/dL (32.0-36.0) 07/05/19 06:40 RDW 13.2 % (11.7-14.6) 07/05/19 06:40 Plt Count 169 x1000/uL (130-400) 07/05/19 06:40 MPV 10.1 fL (8.0-11.0) 07/05/19 06:40 Immature Gran % 0.2 % 07/01/19 15:00 Neutrophils % 81.3 07/01/19 15:00 Lymphocytes % 11.3 07/01/19 15:00 Monocytes % 6.8 07/01/19 15:00 Eosinophils % 0.2 07/01/19 15:00 Basophils % 0.2 07/01/19 15:00 Absolute Neutrophils 6.65 k/cumm (1.2-6.7) 07/01/19 15:00 Absolute Lymphocytes 0.93 k/cumm (1.2-3.4) L 07/01/19 15:00 Absolute Monocytes 0.56 k/cumm (0.11-0.7) 07/01/19 15:00 Absolute Eosinophils 0.02 k/cumm (0.0-0.7) 07/01/19 15:00 Absolute Basophils 0.02 k/cumm (0.0-0.2) 07/01/19 15:00 PT 10.4 sec (9.3-11.0) 07/01/19 15:00 INR 1.0 (0.9-1.1) 07/01/19 15:00 APTT 23.1 sec (21.0-31.4) 07/01/19 15:00 Sodium 140 mmol/L (136-145) 07/05/19 06:40 Potassium 4.3 mmol/L (3.5-5.1) 07/05/19 06:40 Chloride 104 mmol/L (98-107) 07/05/19 06:40 Carbon Dioxide 31.5 mmol/L (21.0-32.0) 07/05/19 06:40 Anion Gap 4.5 mmol/L (3-11) 07/05/19 06:40 BUN 20 mg/dL (7-18) H 07/05/19 06:40 Creatinine 0.89 mg/dL (0.55-1.02) 07/05/19 06:40 Estimated GFR/1.73 m2 >= 60.00 (mL/min/1.73m2) 07/05/19 06:40 Glucose 93 mg/dL (74-106) 07/05/19 06:40 Calcium 8.3 mg/dL (8.5-10.1) L 07/05/19 06:40 Magnesium 2.2 mg/dL (1.8-2.4) 07/05/19 06:40 Total Bilirubin 0.4 mg/dL (0.2-1.0) 07/01/19 15:00 AST 21 U/L (15-37) 07/01/19 15:00 ALT 24 U/L (14-59) 07/01/19 15:00 Alkaline Phosphatase 56 U/L (46-116) 07/01/19 15:00 Total Protein 6.7 g/dL (6.4-8.2) 07/01/19 15:00 Albumin 3.9 g/dL (3.4-5.0) 07/01/19 15:00 Urine Color Yellow (Yellow) 07/01/19 22:01 Urine Clarity Clear (Clear) 07/01/19 22:01 Urine pH 5.5 (5-8) 07/01/19 22:01 Ur Specific [place] 1.010 (1.005-1.025) 07/01/19 22:01 Urine Protein Negative mg/dL (Negative) 07/01/19 22:01 Urine Ketones Negative mg/dL (Negative) 07/01/19 22:01 Urine Blood Moderate (Negative) H 07/01/19 22:01 Urine Nitrite Negative (Negative) 07/01/19 22:01 Urine Bilirubin Negative (Negative) 07/01/19 22:01 Urine Urobilinogen 0.2 EU/dL (Up TO 0.2) 07/01/19 22:01 Ur Leukocyte Esterase Negative (Negative) 07/01/19 22:01 Urine RBC 5-10 HPF (0-2) H 07/01/19 22:01 Urine WBC 0-2 HPF (0-5) 07/01/19 22:01 Ur Epithelial Cells Not Applicable 07/01/19 22:01 Urine Crystals Not Applicable 07/01/19 22:01 Urine Bacteria Not Applicable 07/01/19 22:01 Urine Mucus Not Applicable 07/01/19 22:01 Ur Culture Indicated? No 07/01/19 22:01 Urine Glucose Negative mg/dL (Negative) 07/01/19 22: Patient ABO/Rh A Positive 07/01/19 16:05 Antibody Screen Negative 07/01/19 16:05
[2019-07-05 11:10] VITALS: BP 148/89; PULSE 76; RESP 18; TEMP 37.2; O2SAT 95
[2019-07-05] MEDS: oxyCODONE 5 MG TAB PO (12:22)
--- NOTE | 2019-07-05 13:04 | PTTR_ITS ---
Date of service: 07/05/19 Time of Service: 13:04 PT Notes Visit Reasons: R IMPACTED/DISPL FEMORAL NECK FRACTURE Inpatient Physical Therapy Treatment Note [facility] Date: 07/05/19 PRECAUTIONS:Fall, WBAT R SUBJECTIVE: Randi is agreeable to participating in PT. She is hopeful that she will be returning to home later today. OBJECTIVE: PAIN: Patient c/o R hip pain with transfers, bed mobility, and ther ex BED MOBILITY/TRANSFERS Supine-sit: SBA with HOB flat and use of leg psychological operations officer with min cueing Sit-supine: SBA with HOB flat and use of leg psychological operations officer with min cueing Sit-stand: SBA Stand-sit: SBA GAIT Assistive Device: FWW Weight bearing: WBAT R Assist: SBA Distance: 60' Deviation: Step through gait pattern THEREX: Patient completed a LE strengthening and stabilization program in a supine position, as per flow sheet. ASSESSMENT: Patient tolerated session well with complaint of increased R LE pain with ther ex, bed mobility, and transfers. She was able to complete supine<>sit transfers with cueing and use of leg psychological operations officer, requiring no physical assist. Patient would benefit from continued gait and bed mobility training, as well as strengthening for improved mobility. PLAN: As per primary PT TREATMENT CODE/TIME: 40 minutes; 50232, [id number]
--- NOTE | 2019-07-05 13:30 | DSE_ITS ---
DS: Diagnosis Discharge Diagnosis (1) Displaced fracture of right femoral neck: Start date: 07/05/19 Start time: 13:32 Status: Acute Asessment and Plan: Doing well. Pain controlled moving around with walker. Discharged home with PT/OT and RN services follow up with ortho as planned. Discharge Plan Disposition Patient Disposition: HOME Condition: Good Discharge Details Chief Complaint: Orthopedic Reason For Visit: R IMPACTED/DISPL FEMORAL NECK FRACTURE Admit Date/Time: 07/01/19 16:15 Admit Provider: Star Winter Attending Provider: Star Winter Primary Care Provider: Deborah Valle [facility] Course: 78 y. o female with PMH of CVA, COPD, PVD anemia, HLD, HTN admitted from [facility] ED after tripping over her slippers and falling on a hardwood floor on her right hip. Imaging in the ED revealed right femoral neck fracture. She was taken to the OR by Dr. Clay on 07/02/2019 for a right hip closed reduction and internal fixation. Over the course of hospitalization her pain has been controlled with tylenol and roxicodone. She has been working with PT and cleared for discharge from ortho stand point. She is being discharged home with HH services RN, PT/OT. She denies CP, SOB, N/V/D. Home Meds and New Rx's Prescriptions: New docusate sodium [Colace] 100 mg Capsule 100 mg PO TID PRN PRNQty: 30 RF: 0 oxycodone 5 mg Tablet 5 mg PO Q4H PRN PRNQty: 10 RF: 0 Continued citalopram 10 mg tablet 10 mg PO DAILY Qty: 90 RF: 3 diltiazem HCl [Cartia XT] 120 mg capsule,extended release 24hr 120 mg PO DAILY RF: 0 hydrochlorothiazide 25 mg tablet 25 mg PO DAILY RF: 0 atorvastatin 10 mg tablet 10 mg PO DAILY RF: 0 ascorbic acid (vitamin C) 500 mg capsule 500 mg PO DAILY RF: 0 aspirin-dipyridamole [Aggrenox] 1 EACH capsule, ER multiphase 12 hr 25 - 200 cap PO BID RF: 0 vitamin B complex [Vitamin B-100 Complex] 1 EACH tablet 1 tab PO DAILY RF: 0 Calcet [place]ites 1 EACH tablet 2 tab PO DAILY RF: 0 trazodone 50 mg tablet 25 - 50 mg PO .QHS RF: 0 famotidine 20 MG tablet 20 mg PO DAILY PRNRF: 0 valsartan 160 mg Tablet 160 mg PO DAILY RF: 0 ipratropium bromide 0.03 % [place],Non-Aerosol 2 spray INTRANASAL TID PRNRF: 0 loratadine [Claritin] 10 mg Tablet 10 mg PO DAILY PRNRF: 0 Discontinued tramadol 50 MG tablet 50 mg PO TID PRNRF: 0 Discharge Instructions Instructions: Hip Fracture (GEN), Hip Pain (GEN) Additional Instructions: You have been given roxicodone for pain. You can take with tylenol do not take tramadol while taking roxicodone. Follow up with ortho when scheduled. Home Health services with Physical therapy, occupational therapy and nursing services. Activity:: Activity as Tolerated Equipment/Supplies:: No Equipment Needed Diet:: As Tolerated Discharge Orders Discharge Orders: Discharge Order (Routine); Ordered 07/05/19 Ordered By: Mena Connelly DS: Summary Status at Discharge Functional status at discharge: uses cane/walker Overall status at discharge: patient is progressing back to baseline Mental Status: mental status grossly normal Speech and Movement: speech and movement normal Mood: congruent mood Affect: normal affect Exam Narrative Exam Narrative: Const: Pleasant 78 y.o female sitting up in chair. States pain is minimal. Eyes: PERRLA, EOMI, Neck: No lymphedema, or goiter, thyroid intact. Chest: symmetrical, Resp: LSC, Breath sounds even and unlabored. Cardio: RRR, no murmur appreciated. GI: Abd soft nontender Skin: incision to right hip c/d/i Neuro: AAO x 3 Extrem: no clubbing, cyanosis or edema. PPPX 2. Psych Mental Status: mental status grossly normal Speech and Movement: speech and movement normal Mood: congruent mood Affect: normal affect DS: Data Vitals/I&O Vitals and I&O: Vital Signs Temperature 37.2 C 07/05/19 11:10 Temperature Source Tympanic 07/05/19 11:10 Pulse 76 07/05/19 11:10 Pulse Rhythm Regular 07/05/19 10:09 Pulse 80 07/01/19 16:50 Respiratory Rate 18 07/05/19 11:10 Respiratory Effort Non-Labored 07/05/19 10:09 Respiratory Depth Normal 07/05/19 10:09 Respiratory Pattern Normal 07/05/19 10:09 Blood Pressure 148/89 H 07/05/19 11:10 Blood Pressure Mean 85 07/01/19 16:45 Pulse Oximetry 95 07/05/19 11:10 Respiratory End-tidal CO2 31 07/02/19 15:10 Oxygen Delivery Method Room Air 07/05/19 11:10 Oxygen Flow Rate 0 07/05/19 11:10 Pain Level 5 07/05/19 12:22 Comment 07/04/19 07:30 Intake & Output 07/04/19 07/05/19 07/05/19 23:59 11:59 23:59 Intake Total 1150 / 2550 690 / 930 240 / 930 Output Total 300 / 300 850 / 850 Balance 850 / 2250 -160 / 80 240 / 80 Intake: IV 1000 / 2000 Oral 150 / 550 690 / 930 240 / 930 Output: Urine 300 / 300 850 / 850 Other: Urine Color Pale Yellow Urine Appearance Clear Clear Urine Odor None Comment voided in toilet large amount patient voids to the bathroom Stool Size Small Large Stool Characteristics Formed Soft Hard Formed Brown Voiding Methods Toilet Toilet Data Completed and Pending Completed studies during hospitalization [Text1]: FINDINGS: Lungs: Unremarkable. No consolidation. Pleural space: Unremarkable. No pleural effusion. No pneumothorax. Heart/Mediastinum: Unremarkable. No cardiomegaly. Vasculature: Atherosclerosis. Bones/joints: Unremarkable. IMPRESSION: No acute finding. Labs on day of discharge: Labs from last 24 hours 07/05/19 07/05/19 06:40 06:40 WBC 4.22 L RBC 2.71 L Hgb 8.4 L Hct 25.7 L MCV 94.8 MCH 31.0 MCHC 32.7 RDW 13.2 Plt Count 169 MPV 10.1 Sodium 140 Potassium 4.3 Chloride 104 Carbon Dioxide 31.5 Anion Gap 4.5 BUN 20 H Creatinine 0.89 Estimated GFR/1.73 m2 >= 60.00 Glucose 93 Calcium 8.3 L Magnesium 2.2 PFSH Medical History Anemia of chronic disease (Acute) Anxiety (Chronic) Chronic back pain (Acute) COPD (chronic obstructive pulmonary disease) (Chronic) CVA (cerebral vascular accident) (Chronic) History of cerebrovascular accident (CVA) due to ischemia (Acute) HLD (hyperlipidemia) (Acute) Hypertension (Acute) Osteopenia (Acute) PVD (peripheral vascular disease) (Chronic) Sensory hearing loss (Acute) Surgical History S/P matrixectomy of toe of right foot (Acute) Trigger finger, left (Acute) Family History Mother Heart disease Social History Smoking/Tobacco Use Status: Former Tobacco Use Alcohol Intake: former Drug use: Never Household members: none Number of Children: 2 current occupation: Retired Sales/Clerical/Caregiver What is your relationship status?: Panel score (0-1 are the most socially isolated patients): 0 Do you feel safe in your relationship?: Yes
--- NOTE | 2019-07-05 14:16 | PDOC.HHF2F_ITS ---
Home Health Certification Home Health Certification: 1. Encounter Date and Reason I certify that RAMON JOHNSON was seen by Mena Connelly on 07/05/19 and that I had a [id number] encounter with this patient that meets the physician face to face encounter requirements. 2. Clinical Findings Supporting Skilled Need and Homebound Status I certify that home health services are medically necessary, include either intermittent assisted and/or physical/speech therapy, and that this patient is homebound in that absences from the home require considerable and taxing effort and are infrequent or of short duration, or are attributable to the need to receive medical care. [X] (a) Attached documentation from encounter provides clinical findings supporting skilled need and homebound status (including what assistance patient requires to leave the home). The encounter with the patient was in whole, or in part, for the following medical condition, which is the primary reason for home health care: R IMPACTED/DISPL FEMORAL NECK FRACTURE Long-Term: Patient would benefit from nursing services for wound care Physical Therapy: Patient would benefit from physical and occupational therapy for increased stren gth and balance to return to baseline. Speech Therapy: Homebound: 3. Certification and Authentication I certify that I composed the above information based on my clinical judgement relating to this patient's medical condition and, if applicable, clinical findings communicated to me by the NPP or inpatient physician who performed the Home Health Referral. All further orders will be obtained through (Community Based Physician - PCP)
--- NOTE | 2019-07-05 14:28 | PDOC.CMDIS ---
- If Service Date Differs Date of service: 07/05/19 Time of Service: 14:28 LACE Index Scoring Tool - Questions: Length of Stay (in days): 4 - 6 Acuity (Admit via E.D.?): Yes Comorbidities: Cerebrovascular Disease, Chronic Pulmonary Disease E.D. Visits: 1 - Answers: Total Score: 11 Risk of Readmission: High Risk Care Management Discharge Reason for Hospitalization: Displaced fracture of right femoral neck Discharge Plan: Randi is being discharged home with [facility] nursing, PT and OT services. She will follow-up with her primary care physician and with [facility] Orthopedic as directed. Randi will be transported home via private vehicle by family. Patient/Family Education Needs: Nursing will review discharge instructions with Randi re medications and activity level. Randi is able to verbalize reason for hospitalization and how to manage care at home. Services Needed at Discharge: Home Health Care Services
--- NOTE | 2019-07-06 11:53 | PT.INDS ---
Date of service: 07/06/19 Time of Service: 11:53 PT Notes Visit Reasons: R IMPACTED/DISPL FEMORAL NECK FRACTURE Inpatient Physical Therapy Discharge Summary Dates: 07/06/2019 Dates of Service: 07/03/2019 through 07/05/2019 This is a clinical summary of care provided on the duration of dates listed above. No charge was made in the completion of this documentation. Referring Doctor: Dr. Clay PT Orders: PT CONSULT: Right impacted femoral neck fracture, status post ORIF Precautions: WBAT RLE Patient Profile/Admitting Diagnosis: Patient admitted after a fall at home on 07/01/2019. She underwent ORIF for femoral neck fracture 07/02/2019. PMHX: CVA, mild cognitive impairment, COPD, anxiety, HTN, HLD, PVD Social History/Home Situation: Patient lives in a private home in [place]. She lives alone, however has both a son and a daughter who lives nearby and are actively involved. She states that 1 of her children will likely stay with her when she returns home. She typically ambulates either without an assistive device or with a cane, although has an FW W which she utilizes when she is feeling dizzy, which is episodic and chronic. Equipment Owned/DME: Cane, FW W Subjective: NT Objective: General Observation: NT Mental Status: NT Pain: NT Vital Signs: NT ROM: Right Upper Extremity: Grossly WFL Left Upper Extremity: Grossly WFL Right Lower Extremity: In sitting position, patient tolerates 70 degrees hip flexion. With active assisted heel slides, she tolerates about 60 degrees, limited by pain and apprehension. External rotation lacks 35 degrees in hook lying position, with AAROM. Hip IR allows neutral only. Left Lower Extremity: Grossly WFL Strength: Right Upper Extremity: Biceps 4+/5. Triceps 4+/5. Director Of Cardiology Service Line is strong and equal Left Upper Extremity:Biceps 4+/5. Triceps 4+/5. Director Of Cardiology Service Line is strong and equal Right Lower Extremity: Hip flexion 3-/5. Quads 3-/5, with patient demonstrating improved quad recruitment with repetitive L AQ, although unable to achieve full knee extension actively. Ankle dorsiflexion 3/5 or greater. Left Lower Extremity: Hip flexion 4+/5. Quads 5/5. Sensation: Intact distally Bed Mobility/Transfers: Supine?sit: SBA with HOB flat using leg vice president of manufacturing Sit?stand: SBA Sit?stand: SBA Gait: 60 feet with front wheeled walker WBAT on right LE using step through gait pattern requiring SBA. Balance: Static Sitting: Good Dynamic Sitting: Fair Static Standing: Fair Dynamic Standing: Fair Assessment: Patient is a 78 year old female referred to physical therapy services with the diagnosis of right femoral neck fracture, 3 days status post ORIF. Patient presents with clinical signs and symptoms consistent with postoperative status, as demonstrated by the following impairment level findings: 1. Decreased right hip range of motion 2. Decreased functional strength RLE 3. Gait impairments 4. Decreased activity tolerance 5. Fear avoidance behaviors Impairments continue to contribute to the following functional limitations: 1. Decreased independence with transfers 2. Unable to independently perform ADLs 3. Decreased activity tolerance 4. Unable to tolerate household or community distance ambulation 5. Unable to independently perform bed mobility 6. Unable to manage stairs Goals: Goals X1 week 1. Supine-Sit: Supervision NOT MET 2. Sit-Supine: Supervision NOT MET 3. Sit-Stand : Supervision NOT MET 4. Stand-Sit: Supervision NOT MET 5. Bed-Chair : Supervision with FWW NOT MET 6. Chair-Bed : Supervision with FWW NOT MET 7. Gait : Supervision with FW W x50 feet NOT MET 8. Stairs: Min assist NOT MET 9. Independent with home exercise program NOT MET DISCHARGE RECOMMENDATIONS: Home with home health PT and assistance from family. No equipment needs anticipated TREATMENT CODE/TIME: NT Thank you very much for this referral. Jennifer Galicia PT, DPT, CLT [facility] Inpatient PT at [facility]
== END 2019-07-05 14:55 | disposition home or self-care (01) | DRG 481 ==
LOC: ER 16:44 → MS 17:00
PROVIDERS: Nurse Practitioner Family; Student in an Organized Health Care Education/Training Program; Admitting Provider Internal Medicine; Emergency Provider Physician Assistant; PCP Family Medicine; Visit Provider Internal Medicine
PROC: 0QS634Z Reposition Right Upper Femur with Internal Fixation Device, Percutaneous Approach (ICD-10-PCS; CPT 27235; principal; 2019-07-02 10:30)
DX: S72.011A Unspecified intracapsular fracture of right femur, initial encounter for closed fracture (principal); D62 Acute posthemorrhagic anemia; M21.051 Valgus deformity, not elsewhere classified, right hip; W01.0XXA Fall on same level from slipping, tripping and stumbling without subsequent striking against object, initial encounter; I69.319 Unspecified symptoms and signs involving cognitive functions following cerebral infarction; D63.1 Anemia in chronic kidney disease; I10 Essential (primary) hypertension; F41.9 Anxiety disorder, unspecified; G89.29 Other chronic pain; M54.9 Dorsalgia, unspecified; M25.511 Pain in right shoulder; E78.5 Hyperlipidemia, unspecified; I73.9 Peripheral vascular disease, unspecified; Z79.02 Long term (current) use of antithrombotics/antiplatelets; R42 Dizziness and giddiness; J44.9 Chronic obstructive pulmonary disease, unspecified; M85.80 Other specified disorders of bone density and structure, unspecified site; Y83.8 Other surgical procedures as the cause of abnormal reaction of the patient, or of later complication, without mention of misadventure at the time of the procedure
CPT/HCPCS: 27235; 36415; 51702; 73552; 76942; 80048; 80053; 85027; 86850; 86900; 86901; 93005; 96361; 96374; 96376; 97110; 97162; 97530; 99222; 99223; 99232; 99233; 99239; 99255; 99285; NC; 71045; 73501; 73502; 73700; 81003; 81015; 83735; 85025; 85610; 85730; 93010; 99284; J0690; J3010; J3475

== ENCOUNTER 2019-07-21 11:58 | Outpatient (CLI) | payer MEDICARE, MEDICAID, SELFPAY ==
--- NOTE | 2019-07-21 11:50 | DI.RAD_ITS ---
EXAM: XR HIP RT AP LAT ONLY INDICATION: F/U. COMPARISON: XR HIP RT IN OR from 07/02/2019 TECHNIQUE: 2D digital imaging was performed. FINDINGS: There are again seen 3 partially threaded screws transfixing the subcapital fracture of the right fem ur. No change in alignment of the orthopedic hardware or fracture components is noted.
== END 2019-07-21 12:18 ==
PROVIDERS: PCP Family Medicine; Referring Provider Family Medicine; Visit Provider Student in an Organized Health Care Education/Training Program
DX: S72.001D Fracture of unspecified part of neck of right femur, subsequent encounter for closed fracture with routine healing (principal); X58.XXXD Exposure to other specified factors, subsequent encounter
CPT/HCPCS: 73502

== ENCOUNTER 2019-09-28 09:11 | Outpatient (CLI) | payer MEDICARE, MEDICAID, SELFPAY ==
--- NOTE | 2019-09-28 08:45 | DI.RAD_ITS ---
EXAM: XR HIP RT AP LAT ONLY CLINICAL HISTORY: Follow up TECHNIQUE: 2D digital imaging was performed. COMPARISON: XR HIP RT IN OR from 07/02/2019 XR HIP RT AP LAT ONLY from 07/21/2019 FINDINGS: Three partially threaded screws are again noted through the right femoral neck for fixation of the p reviously noted subcapital fracture. There has been no change in fracture or hardware alignment give n differences in projection.
== END 2019-09-28 09:31 ==
PROVIDERS: PCP Family Medicine; Referring Provider Family Medicine; Visit Provider Student in an Organized Health Care Education/Training Program
DX: S72.091D Other fracture of head and neck of right femur, subsequent encounter for closed fracture with routine healing; X58.XXXD Exposure to other specified factors, subsequent encounter; I10 Essential (primary) hypertension; J44.9 Chronic obstructive pulmonary disease, unspecified
CPT/HCPCS: 99214; 73502

== ENCOUNTER 2019-12-28 09:52 | Outpatient (CLI) | payer MEDICARE, MEDICAID, SELFPAY ==
--- NOTE | 2019-12-28 09:15 | DI.RAD_ITS ---
EXAM: XR HIP RT AP LAT ONLY CLINICAL HISTORY: displaced fracture of right femoral neck. TECHNIQUE: 2D digital imaging was performed. COMPARISON: CR XR HIP RT AP LAT ONLY from 09/28/2019 FINDINGS: There are again seen 3 partially threaded screws transfixing the subcapital fracture of the right fem ur. No change in alignment of the orthopedic hardware or fracture components is noted. No new fract ure is identified. The soft tissues are unremarkable. IMPRESSION: Stable right hip. DATA REPOSITORY: RADIATION DOSE DELIVERED:
== END 2019-12-28 10:12 ==
PROVIDERS: PCP Family Medicine; Referring Provider Family Medicine; Visit Provider Student in an Organized Health Care Education/Training Program
DX: S72.091D Other fracture of head and neck of right femur, subsequent encounter for closed fracture with routine healing (principal); X58.XXXD Exposure to other specified factors, subsequent encounter; I10 Essential (primary) hypertension; J44.9 Chronic obstructive pulmonary disease, unspecified; Z87.891 Personal history of nicotine dependence
CPT/HCPCS: 99213; 73502

== ENCOUNTER 2019-12-28 11:23 | Outpatient (REF) | payer MEDICARE, MEDICAID, SELFPAY ==
[2019-12-28 20:48] LABS: ALT 21 U/L (14-59); AST 18 U/L (15-37); Albumin 4.1 g/dL (3.4-5.0); Alkaline Phosphatase 46 U/L (46-116); Anion Gap 7.3 mmol/L (3-11); BUN 40 mg/dL (7-18); Bilirubin, Total 0.4 mg/dL (0.2-1.0); CO2 30.7 mmol/L (21.0-32.0); CREATININE 1.54 mg/dL (0.55-1.02); Calcium 9.3 mg/dL (8.5-10.1); Chloride 103 mmol/L (98-107); Estimated GFR 32.67 (mL/min/1.73m2); Glucose 142 mg/dL (74-106); Potassium 3.9 mmol/L (3.5-5.1); Sodium 141 mmol/L (136-145); Total Protein 6.4 g/dL (6.4-8.2)
== END 2019-12-28 11:43 ==
LOC: NCHCN 11:23
PROVIDERS: PCP Family Medicine; Visit Provider Nurse Practitioner Family
DX: I10 Essential (primary) hypertension (principal)
CPT/HCPCS: 80053

== ENCOUNTER 2020-01-26 10:18 | Outpatient (REF) | payer MEDICARE, MEDICAID, SELFPAY ==
[2020-01-26 21:13] LABS: Abs Immature Grans 0.01 10^3/uL (0.0-0.06); Absolute Basophil Count 0.03 10^3/uL (0.0-0.2); Absolute Eosinophil Count 0.03 10^3/uL (0.0-0.7); Absolute Lymphocyte Count 1.11 10^3/uL (1.2-3.4); Basophils % 0.7; Eosinophils % 0.7; HCT 32.8 % (36.0-46.0); HGB 10.7 g/dL (11.2-15.7); Immature Grans % 0.2; Lymphocytes % 25.9; MCH 31.1 pg (27.0-33.0); MCHC 32.6 % (32.0-36.0); MCV 95.3 fL (80-95); MPV 10.4 fL (8.0-11.0); Monocytes % 9.3; Neutrophils % 63.2; Platelet Count 242 10^3/uL (130-400); RBC 3.44 10^6/uL (3.93-5.22); RDW 12.4 % (11.7-14.6); RDW-SD 42.6 fL; WBC 4.28 10^3/uL (4.4-10.8)
[2020-01-26 21:37] LABS: Iron 85 ug/dL (50-170)
[2020-01-26 22:02] LABS: Vitamin B12 656 pg/mL (193-986)
[2020-01-26 23:46] LABS: Magnesium 2.1 mg/dL (1.8-2.4)
== END 2020-01-26 10:38 ==
LOC: NCHCN 10:18
PROVIDERS: PCP Family Medicine; Visit Provider Nurse Practitioner Family
DX: D64.9 Anemia, unspecified (principal); I10 Essential (primary) hypertension; M62.81 Muscle weakness (generalized)
CPT/HCPCS: 82607; 83540; 83735; 85025

== ENCOUNTER 2020-04-05 11:34 | Outpatient (CLI) | payer MEDICARE, MEDICAID, SELFPAY ==
--- NOTE | 2020-04-05 09:45 | DI.RAD_ITS ---
EXAM: XR HIP RT AP LAT ONLY CLINICAL HISTORY: fu fracture TECHNIQUE: COMPARISON: CR XR HIP RT AP LAT ONLY from 12/28/2019 FINDINGS: Two views were obtained and show previously described subcapital femoral fracture with [address]. Alignment appears in centrally unchanged comparison with previous examination of December 27. IMPRESSION: RADIATION DOSE DELIVERED: Total DLP
== END 2020-04-05 11:54 ==
PROVIDERS: PCP Family Medicine; Referring Provider Family Medicine; Visit Provider Student in an Organized Health Care Education/Training Program
DX: S72.011A Unspecified intracapsular fracture of right femur, initial encounter for closed fracture (principal); Z87.81 Personal history of (healed) traumatic fracture; M25.551 Pain in right hip; X58.XXXA Exposure to other specified factors, initial encounter
CPT/HCPCS: 99214; 73502

== ENCOUNTER 2020-05-04 13:58 | Outpatient (REF) | payer MEDICARE, MEDICAID, SELFPAY ==
[2020-05-04 21:49] LABS: Anion Gap 10.4 mmol/L (3-11); BUN 30 mg/dL (7-18); CO2 28.6 mmol/L (21.0-32.0); CREATININE 1.34 mg/dL (0.55-1.02); Calcium 8.9 mg/dL (8.5-10.1); Chloride 102 mmol/L (98-107); Estimated GFR 38.35 (mL/min/1.73m2); Glucose 86 mg/dL (74-106); Potassium 3.8 mmol/L (3.5-5.1); Sodium 141 mmol/L (136-145)
[2020-05-11 08:32] LABS: O-desmethyltramadol 38300 ng/mL (Cutoff:25); Tramadol 30035 ng/mL (Cutoff:25)
== END 2020-05-04 14:18 ==
LOC: NCHCN 13:58
PROVIDERS: PCP Family Medicine; Visit Provider Nurse Practitioner Family
DX: N28.9 Disorder of kidney and ureter, unspecified (principal); K59.00 Constipation, unspecified; R39.9 Unspecified symptoms and signs involving the genitourinary system; R01.1 Cardiac murmur, unspecified; R13.10 Dysphagia, unspecified; J44.9 Chronic obstructive pulmonary disease, unspecified; M85.80 Other specified disorders of bone density and structure, unspecified site; K40.90 Unilateral inguinal hernia, without obstruction or gangrene, not specified as recurrent; Z51.81 Encounter for therapeutic drug level monitoring; M54.9 Dorsalgia, unspecified
CPT/HCPCS: 80048; 80373

== ENCOUNTER 2020-06-06 14:28 | Outpatient (CLI) | payer MEDICARE, MEDICAID, SELFPAY ==
--- NOTE | 2020-06-06 14:00 | DI.RAD_ITS ---
EXAM: XR HIP RT COMPLETE AP PELVIS CLINICAL HISTORY: f/u fracture TECHNIQUE: CT examination of the chest was performed utilizing low-dose lung cancer screening protoc ol. COMPARISON: CR XR HIP RT AP LAT ONLY from 04/05/2020 FINDINGS: Two views were obtained. There are 3 lag screws transfixing the proximal right femur. Alignment appe ars unchanged comparison with examination of April 05. Mild degenerative changes of the hip noted. IMPRESSION: RADIATION DOSE DELIVERED: LINK-TO-SR Total DLP Total DLP
== END 2020-06-06 14:48 ==
PROVIDERS: PCP Family Medicine; Referring Provider Family Medicine; Visit Provider Student in an Organized Health Care Education/Training Program
DX: S72.001D Fracture of unspecified part of neck of right femur, subsequent encounter for closed fracture with routine healing; T84.84XD Pain due to internal orthopedic prosthetic devices, implants and grafts, subsequent encounter; M70.61 Trochanteric bursitis, right hip; X58.XXXD Exposure to other specified factors, subsequent encounter
CPT/HCPCS: 99213; 73502

== ENCOUNTER 2020-06-12 00:54 | Outpatient (CLI) | payer MEDICARE, MEDICAID, SELFPAY ==
--- NOTE | 2020-06-12 14:50 | DI.CT_ITS ---
EXAM: CT LOWER EXTREMITY RT WO CLINICAL HISTORY: Persistent pain,displaced fx rt femoral neck,s72.001a. TECHNIQUE: Imaging Protocol: Axial computed tomography images with coronal and sagittal reformatted images were created and reviewed. CONTRAST MATERIAL: Intravenous: None COMPARISON: CR XR HIP RT COMPLETE AP PELVIS from 06/06/2020 FINDINGS: There is 3 identical screws transfixing the femoral neck fracture site. The screws appear to be in satisfactory position. Proximal aspect of the screws extend beyond the co rtex of the greater trochanter. Distal aspects of the screws do not violate the femoral head cortex. There appears to be some healing. Mild impaction. Mild degenerative changes. No evidence of oste omyelitis. No obvious hardware loosening. Small amount of increased joint IMPRESSION: 1. Three lag screws appear to be in satisfactory position. No evidence of loosening nor evidence of osteomyelitis 2. No new fracture lines. RADIATION DOSE DELIVERED: 352.21mGy.cm Total DLP DATA REPOSITORY: All CT scans at this facility are submitted to the National Radiology Data Registry (NRDR) Dose Index Registry (DIR) with the [employer] (A[employer]). RADIATION OPTIMIZATION: All CT scans at this facility use at least one of these dose optimization te chniques: automated exposure control; mA and/or kV adjustment per patient size (includes targeted exa ms where dose is matched to clinical indication); or iterative reconstruction.
== END 2020-06-12 01:14 ==
PROVIDERS: PCP Nurse Practitioner Family; Visit Provider Student in an Organized Health Care Education/Training Program
DX: S72.091A Other fracture of head and neck of right femur, initial encounter for closed fracture (principal); M79.604 Pain in right leg
CPT/HCPCS: 73700

== ENCOUNTER → 2020-08-02 11:16 | Outpatient (BNVA) | payer OTHER, MEDICAID, SELFPAY | PROVIDERS: PCP Nurse Practitioner Family; Referring Provider Nurse Practitioner Family; Visit Provider Student in an Organized Health Care Education/Training Program | DX: T84.84XA Pain due to internal orthopedic prosthetic devices, implants and grafts, initial encounter (principal); M70.61 Trochanteric bursitis, right hip; Z87.81 Personal history of (healed) traumatic fracture; J44.9 Chronic obstructive pulmonary disease, unspecified; I10 Essential (primary) hypertension | CPT/HCPCS: 99214 ==

== ENCOUNTER 2020-09-04 15:50 | Outpatient (REF) | payer OTHER, MEDICAID, SELFPAY ==
[2020-09-04 21:20] LABS: Abs Immature Grans 0.01 10^3/uL (0.0-0.06); Absolute Basophil Count 0.04 10^3/uL (0.0-0.2); Absolute Eosinophil Count 0.05 10^3/uL (0.0-0.7); Absolute Lymphocyte Count 1.03 10^3/uL (1.2-3.4); Absolute Monocyte Count 0.38 10^3/uL (0.1-0.8); Absolute Neutrophil Count 2.86 10^3/uL (1.2-6.7); Basophils % 0.9; Eosinophils % 1.1; HCT 30.1 % (36.0-46.0); HGB 10.1 g/dL (11.2-15.7); Immature Grans % 0.2; Lymphocytes % 23.6; MCH 30.6 pg (27.0-33.0); MCHC 33.6 % (32.0-36.0); MCV 91.2 fL (80-95); MPV 10.5 fL (8.0-11.0); Monocytes % 8.7; Neutrophils % 65.5; Nucleated RBC 0 %; Platelet Count 210 10^3/uL (130-400); RDW 12.5 % (11.7-14.6); RDW-SD 41.6 fL; WBC 4.37 10^3/uL (4.4-10.8)
[2020-09-04 21:47] LABS: ALT 23 U/L (14-59); AST 19 U/L (15-37); Albumin 3.9 g/dL (3.4-5.0); Alkaline Phosphatase 55 U/L (46-116); Anion Gap 5.5 mmol/L (3-11); BUN 36 mg/dL (7-18); Bilirubin, Total 0.2 mg/dL (0.2-1.0); CO2 28.5 mmol/L (21.0-32.0); CREATININE 1.3 mg/dL (0.55-1.02); Calcium 9.2 mg/dL (8.5-10.1); Chloride 108 mmol/L (98-107); Estimated GFR 39.72 (mL/min/1.73m2); Glucose 78 mg/dL (74-106); Magnesium 2.1 mg/dL (1.8-2.4); Potassium 4.2 mmol/L (3.5-5.1); Sodium 142 mmol/L (136-145); Total Protein 6.1 g/dL (6.4-8.2); Vitamin B12 711 pg/mL (193-986)
[2020-09-06 19:54] LABS: Iron 48 ug/dL (50-170)
[2020-09-08 08:55] LABS: O-desmethyltramadol 7350 ng/mL (Cutoff:25); Tramadol 1692 ng/mL (Cutoff:25)
== END 2020-09-04 15:51 | disposition home or self-care (01) ==
LOC: NCHCN 15:50
PROVIDERS: PCP Nurse Practitioner Family; Visit Provider Nurse Practitioner Family
DX: G89.29 Other chronic pain (principal); M54.9 Dorsalgia, unspecified; Z51.81 Encounter for therapeutic drug level monitoring; Z01.818 Encounter for other preprocedural examination
CPT/HCPCS: 80053; 80373; 82607; 83540; 83735; 85025

== ENCOUNTER 2020-09-06 13:37 | Outpatient (CLI) | payer OTHER, MEDICAID, SELFPAY ==
--- NOTE | 2020-09-06 11:12 | DI.RAD_ITS ---
EXAM: XR CHEST 2V PA LATERAL CLINICAL HISTORY: PREOP,Z01.818,HYPERTENSION,FORMER SMOKER,CVA TECHNIQUE: 2D digital imaging was performed. COMPARISON: CR,XR XR PORTABLE CHEST AP from 07/01/2019 CR XR HIP RT COMPLETE AP PELVIS from 06/06/2020 FINDINGS: MEDIASTINUM: Normal. HEART: Normal. PULMONARY VASCULATURE: Normal. Atherosclerosis of the thoracic aorta. LUNGS: Clear. PLEURAL SPACE: No pleural effusion or pneumothorax. BONE:Within normal limits for the patient's age. There is an old compression deformity of the T12 ve rtebral body. OTHER FINDINGS:Normal. IMPRESSION: No acute pulmonary findings. DATA REPOSITORY: RADIATION DOSE DELIVERED:
== END 2020-09-06 13:57 ==
PROVIDERS: PCP Nurse Practitioner Family; Visit Provider Nurse Practitioner Family
DX: I10 Essential (primary) hypertension (principal); Z87.891 Personal history of nicotine dependence; Z01.818 Encounter for other preprocedural examination
CPT/HCPCS: 71046

== ENCOUNTER 2020-09-08 06:16 | Day surgery (SDC) | payer OTHER, MEDICAID, SELFPAY ==
--- NOTE | 2020-08-10 12:41 | PDOC.ANES ---
Date of service: 08/10/20 Time of Service: 12:41 Anesthesia Note Report Anesthesia Note: Anesthesia consult and chart review requested for this patient for their upcoming right hip removal of hardware, greater trochanteric bursa excision. The patient was seen just over a year ago and received anesthesia here at this department. No significant changes in health appreciated in the record. Patient is clear to proceed anesthetically barring any changes in health. Thank you for this consult.
[2020-09-08] VITALS (9 sets, daily range): BP systolic 102–140; BP diastolic 43–99; PULSE 59–69; RESP 16–24; TEMP 36.3–36.6; O2SAT 96–100
--- NOTE | 2020-09-08 06:45 | DI.RAD_ITS ---
EXAM: XR HIP RT IN OR CLINICAL HISTORY: PA[employer]. TECHNIQUE: 2D and realtime digital imaging was performed. COMPARISON: CR XR HIP RT COMPLETE AP PELVIS from 06/06/[address] LOWER EXTREMITY RT WO from 06/12/[address] LOWER EXTREMITY RT WO from 06/12/2020 FINDINGS: Fluoroscopy was provided in the OR for Dr. Clay. Hard copy images show removal of the 3 partially threaded screws from the right femoral neck. An old subcapital fracture unchanged in position. Please see procedure note for details. RADIATION DOSE DELIVERED: 65.2 seconds fluoro time. 5.98 mGy.
[2020-09-08] MEDS: Lactated Ringers 1,000 ML 100 ML IV (07:02)
--- NOTE | 2020-09-08 07:06 | W.PM.DSUDISC ---
Discharge Plan Disposition Patient Disposition: HOME Condition: Stable Discharge Details Reason For Visit: Right hip surgery Attending Provider: Mike Clay Primary Care Provider: Sheela Storey Home Meds and New Rx's Prescriptions: New tramadol 50 mg Tablet 50 mg PO Q8H PRN PRN (Reason: severe pain) Qty: 7 RF: 0 Continued diltiazem HCl [Cartia XT] 120 mg capsule,extended release 24hr 120 mg PO DAILY RF: 0 hydrochlorothiazide 25 mg tablet 25 mg PO DAILY RF: 0 atorvastatin 10 mg tablet 10 mg PO DAILY RF: 0 ascorbic acid (vitamin C) 500 mg capsule 500 mg PO DAILY RF: 0 citalopram 10 mg tablet 10 mg PO DAILY Qty: 90 RF: 0 aspirin-dipyridamole [Aggrenox] 1 EACH capsule, ER multiphase 12 hr 25 - 200 cap PO BID RF: 0 vitamin B complex [Vitamin B-100 Complex] 1 EACH tablet 1 tab PO DAILY RF: 0 trazodone 50 mg tablet 25 - 50 mg PO .QHS RF: 0 Calcet Petites 200 mg calcium -250 unit tablet 3 tab PO DAILY RF: 0 famotidine 20 MG tablet 20 mg PO DAILY PRNRF: 0 valsartan 160 mg Tablet 160 mg PO DAILY RF: 0 ipratropium bromide 0.03 % [place],Non-Aerosol 2 spray INTRANASAL TID PRNRF: 0 loratadine [Claritin] 10 mg Tablet 10 mg PO DAILY PRNRF: 0 docusate sodium [Colace] 100 mg Capsule 100 mg PO TID PRN PRNQty: 30 RF: 0 Discontinued tramadol 50 mg tablet 50 mg PO TID PRNRF: 0 Discharge Instructions Additional Instructions: Surgery: Right hip removal of hardware and excision trochanteric bursa Activity: Advance to weightbearing as tolerated with assist device as necessary. A physical therapy prescription will be provided separately in the office at follow-up if needed. Prescriptions: Resume home medications including Aggrenox (aspirin / dipyridamole) You may use [id number] 650 - 1,000 mg Tylenol (acetaminophen) as needed for mild to moderate pain. Tramadol 50 mg take 1 every 8 hours as needed for severe pain These pain medications may be taken all at once or in different combinations as needed. Also, recommend Colace (docusate) as a stool softener as surgery and pain medicine cause constipation. Dressings: Leave dressing in place for 5 days. May then remove and leave open to air or cover incisions with Band-Aids. May shower after 7 days. Follow-up: 10-[address] Clay (09/20/20 at 2:00 PM) Let us know right away if you develop any redness, drainage, fevers, chest pain, or trouble breathing. Do not drink alcohol or drive for at least 24 hours after anesthesia. Please call the office during business hours with any questions or concerns. Referrals: Mike Clay MD [ [facility] STAFF PHYSICIAN] - Discharge Orders Discharge Orders: Discharge Order (Routine); Ordered 09/08/20 Ordered By: Mike Clay DS: Diagnosis Discharge Diagnosis (1) Trochanteric bursitis, right hip: Status: Acute (2) Painful orthopaedic hardware: Status: Acute (3) Displaced fracture of right femoral neck: Status: Acute
[2020-09-08] MEDS: ceFAZolin 2 GM/50 ML BAG IVPB (07:32)
--- NOTE | 2020-09-08 08:52 | W.PM.OP ---
Date of service: 09/08/20 Time of Service: 08:00 Operative Note Operative Note DATE OF PROCEDURE: 09/08/20 PRE-OP DIAGNOSIS: 1. Right hip displaced femoral neck fracture sequela 2. Right hip painful orthopedic hardware 3. Right hip greater trochanteric bursitis POST-OP DIAGNOSIS: same PROCEDURE: 1. Right hip removal of deep hardware, CPT #51325: 3x cannulated screws 2. Right hip trochanteric bursectomy, CPT #31115 SURGEON: Mike Clay CURTAIN FELLER BLINDSTITCH: Sharon Reinoso ANESTHESIA TYPE: Local By Surgeon and General LMA/ETT Refer to Anesthesia Record ESTIMATED BLOOD LOSS: 5 PATHOLOGY: none sent TOURNIQUET TIME: 0 COMPLICATIONS: None Patient was transported to: PACU Patient's condition: stable Indications: Please see complete medical record for details. Findings: Shortened but healed and stable femoral neck fracture after hardware removal Procedure Description: In the operating room, general anesthesia was induced. The patient was positioned supine on the operating room table. All bony prominences were well-padded. Preoperative antibiotics were administered. The right hip was prepped and draped in the usual sterile fashion. The correct patient, procedure, and side of the procedure were all verified prior to incision. The prior small incision was preinjected with 30 cc of 1% lidocaine containing epinephrine superficial and deep down to the IT band and beneath the trochanteric bursa about the 3 screw heads. The incision was opened sharply and a longitudinal incision was made in the IT band in direction of the screw heads. Spreading was used to open fibers in line and the guidewire was used to palpate each screw head. Individually, the guidewire was inserted in a collinear fashion into each cannulated screw, which was removed using the cannulated screwdriver in entirety without complication. After all 3 screws were removed, the hip was stressed under axial load as well as circumduction range of motion and demonstrated no motion or instability under fluoroscopy. There was no visible fracture line. A Cruz was inserted through the skin and IT band openings and used to smooth bone and scar tissue about the lateral aspect of the proximal femur and greater trochanter. A pituitary rongeur was then used to excise the trochanteric bursa deep to the IT band and all pathologic bursa tissue was removed with fluoroscopic guidance used to assist in positioning about the greater trochanter laterally. The wound was copiously irrigated with normal saline until there was a clear effluent. Skin was closed with 2-0 Monocryl in a buried interrupted fashion. Steri-Strips followed by Xeroform were applied over the incision followed by dry 4 x 4 gauze and ABD pad, which was all secured gently using Medipore tape. The patient awoke from anesthesia without complication and was transferred to the recovery room in a stable condition.
[2020-09-08] MEDS: fentaNYL 100 MCG/2 ML VIAL IVP ×2 (08:53→09:30)
== END 2020-09-08 11:21 | disposition home or self-care (01) ==
PROVIDERS: PCP Nurse Practitioner Family; Visit Provider Student in an Organized Health Care Education/Training Program
PROC: (CPT 20680; principal; 2020-09-08 07:30)
PROC: (CPT 20680; 2020-09-08 07:30)
DX: M70.61 Trochanteric bursitis, right hip (principal); T84.84XA Pain due to internal orthopedic prosthetic devices, implants and grafts, initial encounter; E78.5 Hyperlipidemia, unspecified; I10 Essential (primary) hypertension; D50.9 Iron deficiency anemia, unspecified
CPT/HCPCS: 20680; 27062; 73501; J0690; J1100; J2001; J2405; J3010

== ENCOUNTER 2020-09-20 16:21 | Outpatient (CLI) | payer OTHER, MEDICAID, SELFPAY ==
--- NOTE | 2020-09-20 14:30 | DI.RAD_ITS ---
EXAM: XR HIP RT AP LAT ONLY CLINICAL HISTORY: R hip painful hardware removal. TECHNIQUE: 2D digital imaging was performed. COMPARISON: Prior x-rays 06/06/2020 FINDINGS: The 3 screws have been removed from the femoral head-neck. The subcapital fracture site is healed. No new fractures identified. Some calcification is noted in the superior labrum. Mild degenerative changes. No radiographic evidence of osteomyelitis. IMPRESSION: DATA REPOSITORY: RADIATION DOSE DELIVERED:
== END 2020-09-20 16:22 | disposition home or self-care (01) ==
LOC: DIORS 16:22
PROVIDERS: PCP Nurse Practitioner Family; Referring Provider Nurse Practitioner Family; Visit Provider Student in an Organized Health Care Education/Training Program
DX: Z47.89 Encounter for other orthopedic aftercare (principal); T84.84XD Pain due to internal orthopedic prosthetic devices, implants and grafts, subsequent encounter
CPT/HCPCS: 73502

== ENCOUNTER → 2020-10-30 09:53 | Outpatient (BNVA) | payer OTHER, MEDICAID, SELFPAY | PROVIDERS: PCP Nurse Practitioner Family; Referring Provider Nurse Practitioner Family; Visit Provider Surgery | DX: K43.9 Ventral hernia without obstruction or gangrene (principal); Z86.73 Personal history of transient ischemic attack (TIA), and cerebral infarction without residual deficits; Z79.899 Other long term (current) drug therapy; J44.9 Chronic obstructive pulmonary disease, unspecified; Z87.891 Personal history of nicotine dependence; D50.8 Other iron deficiency anemias | CPT/HCPCS: 99213; 99215 ==

== ENCOUNTER 2020-10-30 11:45 | Outpatient (REF) | payer OTHER, MEDICAID, SELFPAY ==
[2020-10-30 12:20] LABS: Iron 69 ug/dL (50-170); Total Iron Binding Capacity 254 ug/dL (250-450); Transferrin Sat 27 % (15-50)
[2020-10-30 12:23] LABS: ALT 20 U/L (14-59); AST 17 U/L (15-37); Albumin 3.8 g/dL (3.4-5.0); Alkaline Phosphatase 60 U/L (46-116); Anion Gap 6.5 mmol/L (3-11); BUN 32 mg/dL (7-18); Bilirubin, Total 0.3 mg/dL (0.2-1.0); CO2 32.5 mmol/L (21.0-32.0); CREATININE 1.2 mg/dL (0.55-1.02); Calcium 9.2 mg/dL (8.5-10.1); Chloride 106 mmol/L (98-107); Estimated GFR 43.45 (mL/min/1.73m2); Glucose 105 mg/dL (74-106); LDH 196 U/L (81-234); Potassium 3.7 mmol/L (3.5-5.1); Sodium 145 mmol/L (136-145); Total Protein 6.3 g/dL (6.4-8.2)
[2020-10-30 13:01] LABS: Ferritin 81 ng/mL (8-252)
[2020-10-30 15:33] LABS: Abs Immature Grans 0.01 10^3/uL (0.0-0.06); Absolute Basophil Count 0.03 10^3/uL (0.0-0.2); Absolute Eosinophil Count 0.04 10^3/uL (0.0-0.7); Absolute Lymphocyte Count 0.74 10^3/uL (1.2-3.4); Absolute Monocyte Count 0.33 10^3/uL (0.1-0.8); Absolute Neutrophil Count 3.24 10^3/uL (1.2-6.7); Basophils % 0.7; Eosinophils % 0.9; HCT 32.6 % (36.0-46.0); HGB 10.7 g/dL (11.2-15.7); Immature Grans % 0.2; Lymphocytes % 16.9; MCHC 32.8 % (32.0-36.0); MCV 94.5 fL (80-95); MPV 10.5 fL (8.0-11.0); Monocytes % 7.5; Neutrophils % 73.8; Nucleated RBC 0 %; Platelet Count 227 10^3/uL (130-400); RBC 3.45 10^6/uL (3.93-5.22); RDW-SD 44.9 fL; WBC 4.39 10^3/uL (4.4-10.8)
[2020-10-31 10:07] LABS: Haptoglobin 159 mg/dL (32-197)
== END 2020-10-30 11:46 | disposition home or self-care (01) ==
LOC: LBN 11:45
PROVIDERS: PCP Nurse Practitioner Family; Visit Provider Surgery
DX: D50.8 Other iron deficiency anemias (principal); R53.1 Weakness; R42 Dizziness and giddiness; I10 Essential (primary) hypertension; E78.5 Hyperlipidemia, unspecified
CPT/HCPCS: 80053; 82728; 83010; 83540; 83550; 83615; 85025

== ENCOUNTER 2020-12-19 01:16 | Outpatient (CLI) | payer OTHER, MEDICAID, SELFPAY ==
--- NOTE | 2020-12-19 07:30 | DI.CT_ITS ---
Exam(s) CT ABDOMEN PELVIS W EXAM: CT ABDOMEN PELVIS W INDICATION: right lateral rectus hernia,ABD WALL HERNIA,K43.9. COMPARISON: CT RENAL COLIC WO CONTRAST from 02/06/2017 TECHNIQUE: FINDINGS: CT examination of the abdomen and pelvis was performed with a bolus infusion of 100 cc of Omnipaque 3 50. Images obtained through the lung bases are unremarkable. Gallbladder is CT normal. There is mild dilatation of the common duct measuring up to about 8-9 cm. Pancreatic duct all also appears mildly dilated and may enter duodenum 6 separate from the common du ct. No pancreatic mass identified. MRCP suggested to evaluate possible obstruction of distal common duct. There is hepatic steatosis. There is no focal hepatic lesion. Spleen is unremarkable in appearance. Adrenals appear normal. The kidneys are unremarkable with no evidence of hydronephrosis, nephrolithiasis, or renal mass.. Ur inary bladder unremarkable. Abdominal aorta is of normal diameter and is heavily calcified period the major visceral branches kiana ear intact.. There is a right lower quadrant anterior abdominal wall hernia within orifice measuring about 2.4 cm in diameter. There is herniated fat but no bowel content, hernia measures roughly about 8 x 6 cm in diameter. No bowel obstruction. Normal appendix. No evidence of diverticulitis. No abdominal or pelvic adenopathy. There is a fluid collection adjacent to the uterus on the right which is nonspecific, correlation wit h pelvic ultrasound could be obtained if clinically appropriate. I would note that this appears to b een present on prior CT of January 2017 and is grossly unchanged since that time. Appendix is normal. No evidence of diverticulitis or bowel obstruction. IMPRESSION: Right lower quadrant anterior abdominal wall hernia as described above. Findings raising the possibility of obstruction of the distal common bile duct. Correlation with [facility] P suggested. RADIATION DOSE DELIVERED: 701.53mGy.cm Total DLP 701.53mGy.cm Total DLP RADIATION OPTIMIZATION: All CT scans at this facility use at least one of these dose optimization te chniques: automated exposure control; mA and/or kV adjustment per patient size (includes targeted exa ms where dose is matched to clinical indication); or iterative reconstruction.
[2020-12-19 09:02] LABS: Reticulocyte 0.9 % (0.5-2.4)
[2020-12-19] MEDS: Breeza Beverage 473 ML BTL PO ×2 (09:05)
[2020-12-19 09:13] LABS: CREATININE 1.1 mg/dL (0.55-1.02); Estimated GFR 48.04 (mL/min/1.73m2)
[2020-12-19] MEDS: Normal Saline - Diluent 50 ML VIAL IV (09:54)
[2020-12-19] MEDS: Omnipaque 350 MG/ML 100 ML BTL IJ (09:54)
[2020-12-19] MEDS: Normal Saline Flush 10 ML SYR IVP (09:55)
[2020-12-20 13:37] LABS: Albumin 66.6 % (55.8-66.1); Total Protein 5.8 g/dL (6.3-8.2)
== END 2020-12-19 01:36 ==
PROVIDERS: Physical Therapy Assistant; PCP Nurse Practitioner Family; Visit Provider Surgery
DX: K43.9 Ventral hernia without obstruction or gangrene (principal)
CPT/HCPCS: 74177; 82565; 84165; 85045; J3490

== ENCOUNTER → 2021-01-17 01:47 | Outpatient (CLI) | payer OTHER, MEDICAID, SELFPAY ==
--- NOTE | 2021-01-17 09:00 | DI.US_ITS ---
Exam(s) US CAROTID EXAM: US CAROTID CLINICAL HISTORY: preop,weakness,dizziness,hypertension,r42,r53.1,e78.5,hyperlipidemia. TECHNIQUE: Ultrasound carotids performed using grayscale, color-flow, and spectral Doppler imaging. COMPARISON: No exams were available for comparison FINDINGS: RIGHT CAROTID ARTERY: There is mild diffuse plaque in the right common carotid artery. Also plaque seen in the right carot id bulb, more so on the posterior wall and this appears slightly irregular. Plaque extends into the proximal right ICA. There is slightly elevated flow velocities demonstrated within the mid level rig ht ICA in the neck with peak systolic velocity 149 cm/seconds and peak diastolic velocity 45 cm/secon ds, consistent with 50-69 percent stenosis. The right internal carotid artery is noted to be somewha t tortuous in the neck. LEFT CAROTID ARTERY: There is also some plaque noted in the left common carotid artery and carotid bulb and proximal left ICA peak systolic velocity is in the distal ICA measuring 111 cm per sec and peak diastolic velocity is 33 cm/second. These findings are consistent with milder stenosis of less than 50 percent. VERTEBRAL ARTERIES: Antegrade flow is demonstrated in both vertebral arteries. Measurements: R Bulb: 73.9cm/s PS / 16.1cm/s ED R CCA: 97cm/s PS / 23.1cm/s ED R ECA: 82.3cm/s PS / 9.6cm/s ED R ICA Prox: 84.8cm/s PS /19.9cm/s ED R ICA Mid: 149.2cm/s PS / 45.1cm/s ED R ICA Distal: 125.9cm/s PS /30.5cm/s ED R Vert: 74cm/s PS / 10.4cm/s ED R SVR: 1.54 R DVR: 1.95 L Bulb: 76.9cm/s PS /17.4cm/s ED L CCA: 86.8cm/s PS / 14.5cm/s ED L ECA: 94.5cm/s PS /6.4cm/s ED L ICA Prox:90.6cm/s PS / 21.2cm/s ED L ICA Mid: 99.6cm/sPS / 25.7cm/s ED L ICA Distal: 110.6cm/s PS / 32.5cm/s ED L Vert: 50cm/s PS / 12.1cm/s ED L SVR: 1.27 L DVR: 2.24 IMPRESSION: 1. There is approximately 50-69 percent stenosis in the proximal right internal carotid artery. The right internal carotid artery is demonstrated be tortuous in the neck. 2. There is lesser amount of stenosis (less than 50 percent) evident in the proximal left internal ca rotid artery in the neck. 3. Antegrade flow is demonstrated in both vertebral arteries. Criteria for Carotid Stenosis: Normal: ICA PSV <125 cm/s no plaque or intimal thickening is visible. <50% stenosis: ICA PSV <125 cm/s and plaque or intimal thickening is visible. 50-69% stenosis: ICA PSV is 125-250 cm/s and plaque is visible. >70% stenosis to near occlusion: ICA PSV >250 cm/s with visible plaque and luminal narrowing. DATA REPOSITORY:
--- NOTE | 2021-01-17 13:22 | DI.US_ITS ---
APPROVED REPORT EXAM: Comprehensive 2D, Doppler, and color-flow Echocardiogram Other Information Study Quality: Adequate Conclusion Left Ventricle : The left ventricle is normal size. The left ventricular ejection fraction is within the normal range. There is normal left ventricular wall thickness. There is normal LV segmental wall motion. The left ventricular diastolic function is abnormal. LVEF is 60%. Right Ventricle : The right ventricle is normal size. The right ventricular systolic function is norm al. The RVSP is 24.2mmHg. Atria : The left atrium size is normal. The right atrium size is normal. Valves: There are no hemodynamically significant valvular lesions. Great Vessels : The aortic root is normal in size. The ascending aorta is normal in size. IVC is norm al in size and collapses >50% with inspiration. Wall motion Left Ventricle The left ventricle is normal size. The left ventricular ejection fraction is within the normal range. There is normal left ventricular wall thickness. There is normal LV segmental wall motion. The left ventricular diastolic function is abnormal. There is no ventricular septal defect visualized. LVEF is 60%. Right Ventricle The right ventricle is normal size. The right ventricular systolic function is normal. The RVSP is 24 .2mmHg. Atria The left atrium size is normal. The right atrium size is normal. The interatrial septum is intact wit h no evidence for an atrial septal defect. Aortic Valve The aortic valve is normal in structure. There is no aortic valvular stenosis. No aortic regurgitatio n is present. Mitral Valve The mitral valve is normal in structure. No evidence of mitral valve stenosis. Trace mitral regurgita tion. Tricuspid Valve The tricuspid valve is normal in structure. There is no tricuspid valve stenosis. Mild tricuspid regu rgitation. Pulmonic Valve The pulmonary valve is normal in structure. There is no pulmonic valvular stenosis. Trace pulmonic re gurgitation. Great Vessels The aortic root is normal in size. The ascending aorta is normal in size. IVC is normal in size and c ollapses >50% with inspiration. Pericardium There is no pericardial effusion. 2D Dimensions IVSD d PLAX 0.98 cm F: 0.6-1.0 LV Vol A2C d MOD 75.2 mL LVPW d PLAX 0.98 cm F: 0.6 - 1.0 LV Vol A4C d MOD 66.0 mL LVID d PLAX 4.46 cm F: 3.8 - 5.2 LA vol/ BSA A2C s A-L 31.3 mL/m2 LVDs 2.85 cm F: 2.2 - 3.5 LA vol/ BSA A4C s A-L 22.2 mL/m2 Ao Root d 2.50 cm F: 2.7 - 3.3 LA Vol/ BSA Biplane s A-L 26.7 mL/m2 RA Area A4C 12.25 cm2 LA Area A4C s MOD 14.88 cm2 RA Vol/ BSA A4C s A-L 15.0 mL/m2 LA Area A2C s MOD 17.46 cm2 Ao Asc Diam d 3.17 cm F: 2.3 - 3.1 LV EF A4C MOD 59.3 % LV EF Teichholz 65.2 % LV EF A2C MOD 57.6 % LVEF (Torrez's) 58.80 % F: 54 - 74 LV EF Biplane MOD 58.8 % LV Volume 58.18 mL F: 46 - 106 SV 41.97 mL LV Volume Index 36.82 mL/m2 F: 29 - 61 SV Index 26.45 mL/m2 LV Vol Biplane MOD 71.4 mL FS 35.50 % M-Mode TAPSE 2.13 cm (M/F) >1.7 LV Diastology MV E' medial 0.045 (>0.07 m/s) E/A Ratio 0.7 LV E/e MED 16.55 (<14) MV E Vmax 0.75 (0.4-1.3 m/s) MV E' lateral 0.049 (>0.1 m/s) MV A Vmax 1.15 (0.4-1.3 m/s) LV E/e LAT 15.30 (<14) MV E/A Ratio 0.65 MV E/E' medial 16.58 MV E/E' lateral 15.33 Aortic Valve LVOT Area 2.86 cm2 AoV Area Vmax 2.35 cm2 LVOT Vmax 1.22 m/s AoV Area/ BSA (Vmax) 1.48 cm2/m2 LVOT Mean Roddy. 0.80 m/s KODI Mean Roddy. 2.18 cm2 LVOT Peak Grad 6.0 mmHg KODI Mean Roddy. Index 1.38 cm2/m2 LVOT Mean Grad 3.0 mmHg LVOT VTI 0.291 m LVOT Diam s 1.90 cm AoV Vmax 1.49 m/s Velocity Ratio 0.81 AoV Mean Roddy. 1.05 m/s AoV Peak Grad 8.9 mmHg LVOT SV 83.32 mL AoV Mean Grad 5.1 mmHg AoV VTI 0.340 m AoV Area VTI 2.45 cm2 AoV Area/ BSA (VTI) 1.54 cm/m2 Mitral Valve MV DT 381 (160-240 msec) MV PHT 111 msec MV Area PHT 1.99 cm2 MV VTI 0.395 m MV Area VTI 2.11 (4.0-6.0 cm2) Pulmonary Valve PV Vmax 0.94 (0.5-1.5 m/s) RVOT Peak Gr. 2.64 mmHg PV Peak Grad 3.5 mmHg RVOT Mean Gr. 1.45 mmHg PV Mean Grad 2.0 mmHg RVOT VTI 0.193 m PV VTI 0.224 m RVOT Vmax 0.81 m/s Tricuspid Valve TR Peak Grad 21.2 mmHg TR Vmax 2.30 m/s RA Pressure 3.00 mmHg RVSP (TR) 24.2 mmHg
== END ==
PROVIDERS: PCP Nurse Practitioner Family; Visit Provider Surgery
DX: D50.8 Other iron deficiency anemias (principal); E78.5 Hyperlipidemia, unspecified; I10 Essential (primary) hypertension; I63.9 Cerebral infarction, unspecified; I73.9 Peripheral vascular disease, unspecified; J44.9 Chronic obstructive pulmonary disease, unspecified; K43.9 Ventral hernia without obstruction or gangrene; R00.2 Palpitations; R42 Dizziness and giddiness; R53.1 Weakness; Z86.73 Personal history of transient ischemic attack (TIA), and cerebral infarction without residual deficits; Z87.891 Personal history of nicotine dependence; M85.80 Other specified disorders of bone density and structure, unspecified site; R51.9 Headache, unspecified
CPT/HCPCS: 93306; 93880

== ENCOUNTER 2021-02-12 14:40 | Outpatient (CLI) | payer OTHER, MEDICAID, SELFPAY ==
--- NOTE | 2021-02-12 10:30 | DI.RAD_ITS ---
Exam(s) XR HIP RT COMPLETE AP PELVIS EXAM: XR HIP RT COMPLETE AP PELVIS CLINICAL HISTORY: right hip pain. TECHNIQUE: 2D digital imaging was performed. COMPARISON: CR XR HIP RT AP LAT ONLY from 09/20/2020 FINDINGS: Again noted the previously described screw channels in the right hip femoral head and neck with heali ng of the subcapital fracture site and foreshortening of the femoral neck again noted. There are only mild degenerative changes in the ipsilateral hip. Some calcification in the superolat eral aspect of the joint space is unchanged and is most probably labral calcification. No evidence o f obvious avascular necrosis. The opposite-left hip appears unremarkable unremarkable. IMPRESSION: DATA REPOSITORY: RADIATION DOSE DELIVERED:
== END 2021-02-12 14:41 | disposition home or self-care (01) ==
LOC: DIORS 14:41
PROVIDERS: PCP Nurse Practitioner Family; Referring Provider Nurse Practitioner Family; Visit Provider Student in an Organized Health Care Education/Training Program
DX: S72.001D Fracture of unspecified part of neck of right femur, subsequent encounter for closed fracture with routine healing; M16.11 Unilateral primary osteoarthritis, right hip; T84.84XD Pain due to internal orthopedic prosthetic devices, implants and grafts, subsequent encounter; M70.61 Trochanteric bursitis, right hip; X58.XXXD Exposure to other specified factors, subsequent encounter; M25.551 Pain in right hip
CPT/HCPCS: 99213; 73502

== ENCOUNTER 2021-02-15 01:11 | Outpatient (CLI) | payer OTHER, MEDICAID, SELFPAY ==
--- NOTE | 2021-02-15 08:45 | DI.RAD_ITS ---
Exam(s) RF JOINT INJECTION FLUORO GUID EXAM: RF JOINT INJECTION FLUORO GUID CLINICAL HISTORY: R HIP INJ UNDER FLUORO, RT HIP PAIN,TROCHANTERIC BURSITIS, M70.61,M25.551 TECHNIQUE: Fluoroscopy provided. Radiologist not present. CONTRAST MATERIAL: None COMPARISON: No exams were available for comparison FINDINGS: Fluoroscopy was provided for Dr. Jerez during therapeutic right hip injection.. Submitted image(s) reveal needle placement at the lateral aspect of the femoral head and intra-articu lar contrast injection Please refer to the procedure report for complete details. Cumulative Dose: viri Garcia=1.33 mGy IMPRESSION: RADIATION DOSE DELIVERED:
--- NOTE | 2021-02-15 15:41 | W.PROCNOTE ---
Date of service: 02/15/21 Time of Service: 15:41 Procedure Note Date of procedure: 02/15/21 Procedure: Right Femoral Neck Fracture Surgeon/Proceduralist/Physician: Darshan Jerez Procedure Diagnosis: Right Hip Leger Procedure Indications: Randi has had continued pain of the RIGHT hip and groin. Noninvasive measures have been tried. To serve as diagnostic, an injection under fluoroscopy was recommended. I had discussed the risks of the procedure and the patient elected to proceed. Procedure Description: Randi was greeted in the flouroscopy room. The correct side was identified and the consent was reviewed with the patient and signed. The patient was then placed in the supine position on the fluoroscopy table. The RIGHT hip was then prepped with Chloraprep. The anterolateral injection starting point was identiifed by bony landmarks and fluoroscopy. The skin and soft tissue in the tract of the injection was anesthetized with 1% Lidocaine. A spinal needle was then inserted deep into the hip joint at the level of the lateral femoral neck under fluoroscopic guidance. A small amount of Omnipaque solution was injected to confirm intraarticular placement. Once confirmed, the hip was injected with 5cc of 0.5% Bupivicaine and 5cc of 1% Lidocaine. A bandaid was placed on the injection site. The patient tolerated the procedure well.
[2021-02-15] MEDS: Omnipaque 300 MG/ML 10 ML BTL IJ ×2 (15:54→16:02)
[2021-02-15] MEDS: Bupivacaine 0.5% Pres-Free 10 ML VIAL IJ (16:03)
== END 2021-02-15 01:31 ==
PROVIDERS: PCP Nurse Practitioner Family; Visit Provider Student in an Organized Health Care Education/Training Program
DX: M25.551 Pain in right hip (principal); S72.001S Fracture of unspecified part of neck of right femur, sequela; X58.XXXS Exposure to other specified factors, sequela; R10.31 Right lower quadrant pain
CPT/HCPCS: 20610; 77002

== ENCOUNTER 2021-02-22 09:29 | Outpatient (CLI) | payer OTHER, MEDICAID, SELFPAY ==
--- NOTE | 2021-02-22 09:15 | RT.EKG_ITS ---
APPROVED REPORT Exam: Resting ECG Reason for Exam: HTN Patient Location: O HR:71 bpm ECG Measurements Heart Rate 71 AXIS GA 185 P 51 QRSd 132 QRS 54 QT 426 T -2 QTc 463 Conclusion Sinus rhythm...normal P axis, V-rate 50- 99 Probable left atrial enlargement...P >50mS, <-0.10mV V1 Right bundle branch block...QRSd>120, terminal axis(90,270) Baseline wander in lead(s) II,III,aVF
== END 2021-02-22 09:30 | disposition home or self-care (01) ==
LOC: DI.CARD 09:31
PROVIDERS: PCP Nurse Practitioner Family; Visit Provider Internal Medicine Cardiovascular Disease
DX: I10 Essential (primary) hypertension (principal); R00.2 Palpitations; Z01.818 Encounter for other preprocedural examination
CPT/HCPCS: 93010

== ENCOUNTER → 2021-02-22 14:05 | Outpatient (BNVA) | payer OTHER, MEDICAID, SELFPAY | PROVIDERS: PCP Nurse Practitioner Family; Referring Provider Nurse Practitioner Family; Visit Provider Internal Medicine Cardiovascular Disease | DX: R00.2 Palpitations (principal); K40.90 Unilateral inguinal hernia, without obstruction or gangrene, not specified as recurrent; I10 Essential (primary) hypertension; M16.11 Unilateral primary osteoarthritis, right hip; Z01.810 Encounter for preprocedural cardiovascular examination | CPT/HCPCS: 93005; 99203; 99214 ==

== ENCOUNTER → 2021-03-19 13:26 | Outpatient (BNVA) | payer OTHER, MEDICAID, SELFPAY | PROVIDERS: PCP Nurse Practitioner Family; Referring Provider Nurse Practitioner Family; Visit Provider Surgery | DX: K43.9 Ventral hernia without obstruction or gangrene (principal); D50.8 Other iron deficiency anemias; Z01.818 Encounter for other preprocedural examination; J44.9 Chronic obstructive pulmonary disease, unspecified | CPT/HCPCS: 99213; 99214 ==

== ENCOUNTER 2021-03-29 04:05 | Outpatient (CLI) | payer OTHER, MEDICAID, SELFPAY ==
[2021-03-29 11:18] LABS: Abs Immature Grans 0.02 10^3/uL (0.0-0.06); Absolute Basophil Count 0.04 10^3/uL (0.0-0.2); Absolute Eosinophil Count 0.03 10^3/uL (0.0-0.7); Absolute Monocyte Count 0.42 10^3/uL (0.1-0.8); Basophils % 0.9; Eosinophils % 0.7; HCT 32.7 % (36.0-46.0); HGB 10.7 g/dL (11.2-15.7); Immature Grans % 0.5; Lymphocytes % 18.1; MCH 30.4 pg (27.0-33.0); MCHC 32.7 % (32.0-36.0); MCV 92.9 fL (80-95); Monocytes % 9.5; Neutrophils % 70.3; Nucleated RBC 0 %; Platelet Count 214 10^3/uL (130-400); RBC 3.52 10^6/uL (3.93-5.22); RDW-SD 44.4 fL; WBC 4.41 10^3/uL (4.4-10.8)
[2021-03-29 13:44] LABS: Iron 98 ug/dL (50-170); Total Iron Binding Capacity 261 ug/dL (250-450)
[2021-03-29 13:48] LABS: Ferritin 106 ng/mL (8-252)
== END 2021-03-29 04:06 | disposition home or self-care (01) ==
LOC: LBO 04:06
PROVIDERS: PCP Nurse Practitioner Family; Visit Provider Surgery
DX: D50.9 Iron deficiency anemia, unspecified; K43.9 Ventral hernia without obstruction or gangrene
CPT/HCPCS: 36415; 86850; 86900; 86901; 82728; 83540; 83550; 85025

== ENCOUNTER 2021-04-23 02:05 | Outpatient (CLI) | payer OTHER, MEDICAID, SELFPAY ==
[2021-04-23 12:12] LABS: Source Nasal/Nares
[2021-04-23 18:23] LABS: COVID-19 PCR Negative (Negative)
== END 2021-04-23 02:06 | disposition home or self-care (01) ==
LOC: LBO 02:05
PROVIDERS: PCP Nurse Practitioner Family; Visit Provider Surgery
DX: Z20.822 Contact with and (suspected) exposure to COVID-19 (principal); Z01.818 Encounter for other preprocedural examination
CPT/HCPCS: 87635

== ENCOUNTER 2021-04-24 10:31 | Observation (INO) | payer OTHER, MEDICAID, SELFPAY ==
[2021-04-24] VITALS (13 sets, daily range): BP systolic 79–149; BP diastolic 24–74; PULSE 68–84; RESP 15–24; TEMP 36.7–37.6; O2SAT 93–99; BMI 25.2
--- NOTE | 2021-04-24 11:00 | W.ANESPRE ---
General Info Date of Service Date Performed: 04/24/21 Height: 5 ft 1 in Weight: 60.441 kg Body Mass Index (BMI): 25.2 Surgical Procedure: Operation Date: 04/24/21 10:40 Proposed Procedures Side Surgeon p Open Hernia Repair w/Mesh Sue Montes, Meds Allergies and Home Medications Allergies Allergy/AdvReac Type Severity Reaction Status Date / Time atenolol Allergy Unknown Verified 04/24/21 11:05 esomeprazole [From Nexium] AdvReac Unknown Verified 04/24/21 11:05 Home Medication Medication Instructions Recorded aspirin-dipyridamole [Aggrenox] 25 - 200 cap PO BID 02/01/13 famotidine 20 mg PO DAILY PRN 02/06/17 ascorbic acid (vitamin C) 500 mg 500 mg PO DAILY cap 12/03/18 capsule atorvastatin 10 mg tablet 10 mg PO DAILY 12/03/18 diltiazem HCl 120 mg 120 mg PO DAILY 12/03/18 capsule,extended release 24 hr hydrochlorothiazide 25 mg tablet 25 mg PO DAILY 12/03/18 trazodone 50 mg tablet 25 - 50 mg PO .QHS 06/09/19 ipratropium bromide 2 spray INTRANASAL TID PRN 07/01/19 valsartan 160 mg PO DAILY 07/01/19 docusate sodium [Colace] 100 mg PO TID PRN PRN #30 cap 07/05/19 calcium carb and lactate 200 3 tab PO DAILY tab 08/02/20 mg-vitamin D3 6.25 mcg (250 unit) tablet citalopram 10 mg tablet 10 mg PO DAILY #90 tab 08/31/20 tramadol 50 mg PO Q8H PRN PRN #7 tab 09/08/20 acetaminophen 500 mg capsule 500 mg PO Q6H PRN 10/27/20 gabapentin 100 mg capsule 100 mg PO BID 10/27/20 ipratropium bromide 21 mcg (0.03 2 spray INTRANASAL BID-TID PRN 03/19/21 %) nasal spray pseudoephedrine-guaifenesin ER 60 1 tab PO Q12H PRN 03/19/21 mg-600 mg tablet,extend release 12hr Current Visit Medications: Current Medications Generic Name Dose Route Start Last Admin Trade Name Freq PRN Reason Stop Dose Admin Acetaminophen 1,000 mg 04/24/21 06:00 Acetaminophen 500 Mg Tab PO 11/24/21 23:59 PREOP BRIA Gabapentin 300 mg 04/24/21 06:00 Gabapentin 300 Mg Cap PO 05/23/21 23:59 PREOP BRIA Ringer's Solution 1,000 mls @ 80 mls/hr 04/24/21 06:00 IV 05/23/21 23:59 INFUSION BRIA Cefazolin Sodium/Dextrose 2 gm in 50 mls @ 100 mls/hr 04/24/21 06:00 Ancef Duplex IVPB 05/23/21 23:59 PREOP BRIA IV Miscellaneous Supplies 1 each 04/24/21 06:00 Iv Access IV 05/23/21 23:59 DIRECTED BRIA Sodium Chloride 0 ml 04/24/21 06:00 Normal Saline Flush 10 Ml Syr IV 05/23/21 23:59 PRN PRN Sodium Chloride 0 ml 04/24/21 06:00 Normal Saline 10 Ml Vial IJ 05/23/21 23:59 DIRECTED PRN Sterile Water 0 ml 04/24/21 06:00 Water,Injection,Sterile 10 Ml Vial IJ 05/23/21 23:59 DIRECTED PRN PFSH Active Problems Active Problems: Problem Status Onset Code Iron deficiency anemia D50.9 Anticoagulation adequate with anticoagulant therapy Z79.01 Right carotid bruit R09.89 Right shoulder pain M25.511 Former smoker Z87.891 Abnormal auditory perception H93.299 Cataract H26.9 Pseudophakia Z96.1 Gait abnormality R26.9 Chronic daily headache R51 S/P cataract surgery Z98.49 Anemia due to blood loss D50.0 Trochanteric bursitis, right hip M70.61 Abdominal wall hernia K43.9 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 Preoperative cardiovascular examination Z01.810 Degenerative joint disease of right hip M16.11 Balance problems R26.89 Dysphagia R13.10 Headache R51 Dizzy R42 Heart murmur, systolic Vertigo R42 Weakness R53.1 Heart palpitations R00.2 Painful orthopaedic hardware T84.84XA Displaced fracture of right femoral neck 07/01/19 S72.001A Anemia of chronic disease D63.8 History of cerebrovascular accident (CVA) due to ischemia Z86.73 PVD (peripheral vascular disease) I73.9 COPD (chronic obstructive pulmonary disease) J44.9 Osteopenia M85.80 Chronic back pain M54.9, G89.29 Anxiety F41.9 Sensory hearing loss H90.5 CVA (cerebral vascular accident) I63.9 HLD (hyperlipidemia) E78.5 Hypertension I10 Medical History Medical History Anemia of chronic disease Anxiety Balance problems Chronic back pain COPD (chronic obstructive pulmonary disease) CVA (cerebral vascular accident) 2006 Degenerative joint disease of right hip Dizzy Dysphagia Headache Heart murmur, systolic Heart palpitations History of cerebrovascular accident (CVA) due to ischemia HLD (hyperlipidemia) Hypertension Osteopenia Preoperative cardiovascular examination PVD (peripheral vascular disease) Sensory hearing loss Vertigo Weakness Surgical History Surgical History Displaced fracture of right femoral neck (07/01/19) S/P cannulated screw fixation: 07/02/2019 Painful orthopaedic hardware RIGHT hip S/P removal 09/08/2020 S/P matrixectomy of toe of right foot Trigger finger, left Tobacco Smoking/Tobacco Use Status: Former Tobacco Use Alcohol Alcohol Intake: never Substance Use Substance use: Never Substance use type: does not use Vital Signs and Lab Results Lab Results Blood Type / Crossmatch: Patient ABO/Rh A Positive 03/29/21 10:35 03/29/21 Antibody Screen NEGATIVE 03/29/21 10:35 03/29/21 Complete Blood Count: White Blood Count 4.41 10^3/uL (4.4-10.8) 03/29/21 10:35 03/29/21 Red Blood Count 3.52 10^6/uL (3.93-5.22) L 03/29/21 10:35 03/29/21 Hemoglobin 10.7 g/dL (11.2-15.7) L 03/29/21 10:35 03/29/21 Hematocrit 32.7 % (36.0-46.0) L 03/29/21 10:35 03/29/21 Platelet Count 214 10^3/uL (130-400) 03/29/21 10:35 03/29/21 Complete Metabolic Panel: No Data to Display Liver Function Panel: No Data to Display Coagulation Panel: No Data to Display Cardiac Panel: No Data to Display Arterial Blood Gas: No Data to Display Venous Blood Gas: No Data to Display Pancreas Panel: No Data to Display Thyroid Panel: No Data to Display Infectious Disease: Coronavirus (COVID-19)(PCR) Negative (Negative) 04/23/21 10:50 04/23/21 Coronavirus 2019 Source Nasal/Nares 04/23/21 10:50 04/23/21 Blood Cultures: No Data to Display Toxicology Panel: No Data to Display Imaging and Studies Imaging and Studies EKG Summary: Conclusion Sinus rhythm...normal P axis, V-rate 50- 99 Probable left atrial enlargement...P >50mS, <-0.10mV V1 Right bundle branch block...QRSd>120, terminal axis(90,270) Baseline wander in lead(s) II,III,aVF Echocardiogram Summary: Conclusion Left Ventricle : The left ventricle is normal size. The left ventricular ejection fraction is within the normal range. There is normal left ventricular wall thickness. There is normal LV segmental wall motion. The left ventricular diastolic function is abnormal. LVEF is 60%. Right Ventricle : The right ventricle is normal size. The right ventricular systolic function is normal. The RVSP is 24.2mmHg. Atria : The left atrium size is normal. The right atrium size is normal. Valves: There are no hemodynamically significant valvular lesions. Great Vessels : The aortic root is normal in size. The ascending aorta is normal in size. IVC is normal in size and collapses >50% with inspiration. Carotid Artery Summary:: RIGHT CAROTID ARTERY: There is mild diffuse plaque in the right common carotid artery. Also plaque seen in the right carotid bulb, more so on the posterior wall and this appears slightly irregular. Plaque extends into the proximal right ICA. There is slightly elevated flow velocities demonstrated within the mid level right ICA in the neck with peak systolic velocity 149 cm/seconds and peak diastolic velocity 45 cm/seconds, consistent with 50-69 percent stenosis. The right internal carotid artery is noted to be somewhat tortuous in the neck. LEFT CAROTID ARTERY: There is also some plaque noted in the left common carotid artery and carotid bulb and proximal left ICA peak systolic velocity is in the distal ICA measuring 111 cm per sec and peak diastolic velocity is 33 cm/second. These findings are consistent with milder stenosis of less than 50 percent. Anesthesia Assessment and Plan Anesthesia History Personal History: No History of Anesthesia Complications Family History: No Family History of Anesthesia Complications Exercise Tolerance Exercise Tolerance: Metabolic Equivalents>4 Pertinent Negatives Pertinent Negatives: No Symptoms of GERD, No Major Pulmonary Symptoms or Complaints and No History of CVA/TIA Cardiac & Pulmonary Exam Cardiac Exam: Normal S1/S2 Heart Sounds Pulmonary Exam: Clear Bilateral Breath Sounds Airway Exam Known Difficult Airway: No Mallampati Class: 3 Mouth Opening: Normal (> 3cm) Thyromental Distance: Greater than 3 cm Neck Range of Motion: Full ROM Neck Circumference: Normal Teeth Condition: Edentulous ASA Classification ASA Score: ASA 3 Emergency Case?: No NPO Status NPO Status: NPO Clears >2 hours, Solids >8 hours Anesthesia Plan Resuscitation Status: Full Code Anesthesia Technique: General Anesthesia (with general anesthetic) Airway Planned: Endotracheal Tube Pain Management: Intrathecal Analgesia Monitors Used: Standard Monitors
[2021-04-24] MEDS: Acetaminophen 500 MG TAB 1000 MG PO ×2 (11:10→21:31)
[2021-04-24] MEDS: Gabapentin 300 MG CAP PO (11:10)
[2021-04-24] MEDS: Lactated Ringers 1,000 ML 80 ML IV ×2 (11:11→15:00)
--- NOTE | 2021-04-24 11:24 | HPE_ITS ---
Date of service: 04/24/21 Assessment and Plan Assessment and plan (1) Iron deficiency anemia: Status: Acute (2) Former smoker: Status: Acute (3) Iron refractory iron deficiency anemia: Status: Acute (4) Abdominal wall hernia: Status: Acute Assessment and plan: Informed consent is obtained for the procedural (explained in simple layman's terms that the pt and/or family could understand) explaining risks vs benefits and alternatives to the procedure and consequences if we do not do the procedure. Risks include but are not limited to:bleeding,infections, pneumonia, blood clots/DVT/PE, anesthesia(aspiration, damage to teeth/airway/OR/CVA//prolonged mechanical ventilation/PTX/IV infections), damage to bowel, bladder,blood vessels. Recurrence of hernia. Wound infections requirng further surgery. Scarring and disfigurement. Subsequent bowel obstructions from scar tissue. complications of anethesia. History of Present Illness Narrative: Patient is here today for hernia repair.-Abdominal hernia repair. No changes in meds or health status. The hernia is soft and easily reducible today. Patient is here today for follow-up from her right lower quadrant hernia. I did personally review her CT scans. It is in an irregular location. Patient has been drinking more water and eating more fiber. SHe has been able to move her bowels better. She had echo/carotids adn saw cards, they said she was medical stable for surgery. I reviewed the case w/ anethesia, who said she was stable for GETA. Patient was seen and examined today. Her hernia is soft and reducible. It is quite lateral to the rectus and appears to be more in the serratus position and not a true spigelian. She would need a modified Ge Stoppa typea repair repair, possible bowel resection. She will should have an epidural. Should be in the hospital 2 to 4 days postoperatively. Risks include bleeding, infection, pneumonia, blood clots, reaction or infection of the mesh, chronic pain or chronic numbness, recurrence, heart attack or stroke or other complications with anesthesia. Small bowel obstructions or damage to the bowel. Damaged blood vessels. She will have a drain in. She will need someone to help her out at home. She is unvaccinated. She wants to have her hip replaced as well. She cannot have any other surgeries for 6 months after she has this procedure done. She has someone that can help her out at home after surgery. Heart today is regular rate and rhythm. Lungs are clear to auscultation. Abdomen is soft. She is never had any abdominal surgery before. Hernia is reducible. CT scan and notes from cardiology reviewed today. I did discuss with the patient what she could expect during surgery recovery time, the postop period and risks versus benefits. Patient feels that this impacts her ADLs and is painful and she wishes to have it repaired. She is slightly higher risk given her age, COPD, and carotid status. But she is acceptable risk at [facility]. Patient wishes to be scant scheduled for surgery we will go ahead and schedule her. She will have general epidural versus block and postop admission All medications and past medical history and allergies was reviewed today. I di d review the pt's CT w/ rads. size is about 6x3cm. Upon reviewing her labs I did realize that she is quite anemic. We will repeat her lab work. If she is still anemic then we may need to do some investigation into this prior to proceeding with surgery. We also want to make sure there is not an underlying malignancy. We also want her to be optimized for her procedure. I did review her chart-has been going on since 2017 or 2018. She did have a complete work-up for anemia at that time including an EGD and colonoscopy. Nothing has been found to explain the profound anemia. And her hemoglobin has remained stable. Review of Systems Narrative: No changes in medications or health status since I saw in the office at her last appointment All systems reviewed & are unremarkable except as noted in HPI and below PFSH Medical History Anemia of chronic disease Anxiety Balance problems Chronic back pain COPD (chronic obstructive pulmonary disease) CVA (cerebral vascular accident) 2006 Degenerative joint disease of right hip Dizzy Dysphagia Headache Heart murmur, systolic Heart palpitations History of cerebrovascular accident (CVA) due to ischemia HLD (hyperlipidemia) Hypertension Osteopenia Preoperative cardiovascular examination PVD (peripheral vascular disease) Sensory hearing loss Vertigo Weakness Surgical History Displaced fracture of right femoral neck (07/01/19) S/P cannulated screw fixation: 07/02/2019 Painful orthopaedic hardware RIGHT hip S/P removal 09/08/2020 S/P matrixectomy of toe of right foot Trigger finger, left Family History Mother Heart disease Social History Smoking/Tobacco Use Status: Former Tobacco Use Quit Date: 06/30/74 Smoking risk assessment performed?: Yes Alcohol Intake: never Drug use: Never Substance use type: does not use Household members: none Number of Children: 2 current occupation: Retired Sales/Clerical/Caregiver Current gender identity: female What is your relationship status?: Panel score (0-1 are the most socially isolated patients): 0 Do you feel safe at home: Yes Do you feel safe in your relationship?: Yes Meds Allergies and Home Medications Allergies Allergy/AdvReac Type Severity Reaction Status Date / Time atenolol Allergy Unknown Verified 04/24/21 11:05 esomeprazole [From Nexium] AdvReac Unknown Verified 04/24/21 11:05 Home Medications Medication Instructions Recorded Confirmed Type aspirin-dipyridamole [Aggrenox] 25 - 200 cap PO BID 02/01/13 04/24/21 History famotidine 20 mg PO DAILY PRN 02/06/17 04/23/21 History ascorbic acid (vitamin C) 500 mg 500 mg PO DAILY cap 12/03/18 04/24/21 History capsule atorvastatin 10 mg tablet 10 mg PO DAILY 12/03/18 04/24/21 History diltiazem HCl 120 mg 120 mg PO DAILY 12/03/18 04/24/21 History capsule,extended release 24 hr hydrochlorothiazide 25 mg tablet 25 mg PO DAILY 12/03/18 04/24/21 History trazodone 50 mg tablet 25 - 50 mg PO .QHS 06/09/19 04/24/21 History ipratropium bromide 2 spray INTRANASAL TID PRN 07/01/19 04/24/21 History valsartan 160 mg PO DAILY 07/01/19 04/24/21 History docusate sodium [Colace] 100 mg PO TID PRN PRN #30 cap 07/05/19 04/24/21 Rx calcium carb and lactate 200 3 tab PO DAILY tab 08/02/20 04/24/21 History mg-vitamin D3 6.25 mcg (250 unit) tablet citalopram 10 mg tablet 10 mg PO DAILY #90 tab 08/31/20 04/24/21 Rx tramadol 50 mg PO Q8H PRN PRN #7 tab 09/08/20 04/24/21 Rx acetaminophen 500 mg capsule 500 mg PO Q6H PRN 10/27/20 04/24/21 History gabapentin 100 mg capsule 100 mg PO BID 10/27/20 04/24/21 History ipratropium bromide 21 mcg (0.03 2 spray INTRANASAL BID-TID PRN 03/19/21 04/24/21 History %) nasal spray pseudoephedrine-guaifenesin ER 60 1 tab PO Q12H PRN 03/19/21 04/24/21 History mg-600 mg tablet,extend release 12hr Exam Resp Effort & Inspection: normal respiratory effort and able to speak in complete sentences Auscultation: clear to auscultation bilaterally Cardio Rate: regular rate Rhythm: regular rhythm GI Palpation: soft Auscultation: normal bowel sounds Other: RLQ hernia. soft and reducible. Results Last Vital Signs Temp 36.7 C 04/24/21 10:50 Pulse 76 04/24/21 10:50 Resp 18 04/24/21 10:50 BP 141/68 H 04/24/21 10:50 Pulse Ox 96 04/24/21 10:50 PAWSS Have you Been Recently Intoxicated or Drunk Within the Last 30 days?: No Have you Ever Experienced Previous Episodes of Alcohol Withdrawal?: No Have you ever Experienced Withdrawal Seizures?: No Have you ever Experienced Delirium Tremens(DT)s?: No Have you ever undergone Alcohol Rehabilitation Treatment (i.e, inpt ot outpatient treatment programs)?: No Have you ever Experienced Blackouts?: No Have you ever Combined Alcohol with other Downers within the last 90 days?: No Have you ever Combined Alcohol with any other Substance of Abuse during the last 90 days?: No Positive Blood Alcohol level on Presentation? [PCS.BAL]: No Evidence of Increased Autonomic Activity (i.e. HR>120, tremor, sweating, agitation, nausea)?: No Result: 0
[2021-04-24] MEDS: ceFAZolin 2 GM/50 ML BAG IVPB (12:17)
[2021-04-24] MEDS: Lidocaine 1% Multi-Dose 50 ML VIAL (12:22)
--- NOTE | 2021-04-24 14:23 | W.PM.OP ---
Date of service: 04/24/21 Time of Service: 14:23 Operative Note Operative Note DATE OF PROCEDURE: 04/24/21 PRE-OP DIAGNOSIS: right spegalian hernia POST-OP DIAGNOSIS: same (also right direct inguinal hernia ) PROCEDURE: open repair w/ mesh x2 (of the above) SURGEON: Sue Montes BATTERY TEST ENGINEER: Kerri Gonzales ANESTHESIA TYPE: Local By Surgeon, General LMA/ETT and Other Refer to Anesthesia Record ESTIMATED BLOOD LOSS: 10 PATHOLOGY: none sent COMPLICATIONS: None Patient was transported to: PACU Patient's condition: stable Procedure Description: Patient is here today for abdominal hernia repair. She is marked in preop. All her questions are answered and she is stable for procedure today. Informed consent is obtained explaining risks and benefits of the procedure including but not limited to: Bleeding, infection, pneumonia, blood clots. He complications with healing, complications with mesh that could result require removal, chronic pain, chronic numbness, recurrence. She is at higher risk given her age and her comorbidities for anesthesia but was deemed acceptable risk by cardiology and anesthesia. And she freely consents to the procedure. Patient is brought to the operative suite. Anesthesia is administered per the department of anesthesia. Patient is then placed in the supine position with all bony surfaces padded. Becerril catheter was placed. She has good IV access. Timeout is performed. She did receive preop antibiotics. She is prepped and draped in the usual sterile fashion using a ChloraPrep scrub solution. 20 cc of 1% lidocaine is used for local anesthetization. A 3 inch incision is made in the right lower quadrant in the paramedian fashion. Electrocautery is used to provide hemostasis and dissect down to the external oblique- this is incised. She has a spegalian and hernia that it is apparent. The hernia sac is opened up and the contents freed up. The sac is removed. The internal Bleich is closed with interrupted 2-0 Vicryl sutures. And flaps are then raised to 4 inches above the umbilicus down to the pubic tubercle and laterally to the ASIS. I did not dissect out further medially than the linea alba. Fascial separate separations and undertaken the internal and external oblique. As we are working inferiorly it is noted that she also has a direct inguinal hernia. The hernia sac again is dissected out and excised. A medium plug is in place in the defect and this is oversewn with interrupted 2-0 Vicryl. 6 x 6 inch piece of mesh is then used and sewn to the underside of the external oblique, the pubic tubercle, the rectus fascia. Is irrigated. The external oblique is then closed over the mesh using interrupted 2-0 Vicryl. The fat pad is copiously irrigated. A #15 round Matt drain is brought out in the right lower quadrant through separate stab incision. Electrocautery and clips were used to provide hemostasis. The drain is sewn with 2-0 Prolene. Deep tissues approximated with 3-0 Vicryl in running fashion. Skin is approximated with greg. A david's dressing is applied. Patient tolerated procedure well without complication and transferred to recovery room in stable condition. This document was created using voice activated software and may contain errors
[2021-04-24] MEDS: ePHEDrine 50 MG/ML VIAL IVP (14:24)
[2021-04-24] MEDS: fentaNYL 100 MCG/2 ML VIAL IVP (15:15)
--- NOTE | 2021-04-24 16:01 | W.ANESPOSTOP ---
Postoperative Evaluation Date, Time and Location Date Performed: 04/24/21 Time Performed: 16:01 Patient Location: PACU Vital Signs Most Recent Imported Vital Signs: Most Recent Vital Signs Temp Pulse Resp BP Pulse Ox 36.7 C 69 18 137/46 L 97 04/24/21 15:55 04/24/21 15:55 04/24/21 15:55 04/24/21 15:55 04/24/21 15:55 Pain Score Most Recent Pain Score: Most Recent Pain Score Pain Level 3 04/24/21 15:55 Assessment Mental Status: Awake (Alert & Oriented to Patient Baseline) Airway and Respiratory Function: Patent airway with normal (patient baseline) respiratory exam Cardiovascular Function: Hemodynamically Stable Hydration Status: Adequately Hydrated Nausea & Vomiting: No Nausea or Vomiting Pain: Pain is tolerable per patient Peripheral Nerve Block: Patient did not receive a nerve block
--- NOTE | 2021-04-24 17:53 | NT_ITS ---
Date of service: 04/24/21 Time of Service: 17:30 PT Notes Patient reports significant pain in L abdominal area at surgical incision at 8- 9/10. Also states difficulty and considerable discomfort with attempting to cough, states that she has phlegm that accumulated from holding off on a cough medication for a week prior to surgery. Complains of being hazy and queasy from anesthesia. Agreeable to doing PT evaluation tomorrow morning. Nurse Angelo updated of patient complaints right away. Will see patient for PT evaluation tomorrow morning, as ordered. Thank you for the opportunity to participate in the care of this patient. Jennifer Galicia PT, DPT, CLT [facility] [place], [place]
[2021-04-24] MEDS: MORPHine 2 MG/ML SYR IVP ×2 (18:11→21:31)
--- NOTE | 2021-04-24 18:23 | CHAPLAIN ---
MARÍA Stephens, asked me to visit Randi. She had just come up stairs from the PACU after surgery. She said she was in pain and wanted a cross. I brought a prayer shawl a small, portable cross from the chap, but she didn't like that one. I brought up a larger cross. Randi said she need to be able to focus on the cross in order to be calm. We called her daughter and she asked her daughter to call Fr. Vincenzo Vale, a commercial energy rater at the sabianist Randi attends in [place]. It's not a Protestant sabianist. Randi is anticipating a call from Fr. Vale. Offered to pray with Randi but she said she preferred to wait for Fr. Vale. I will check in with Randi tomorrow.
[2021-04-24] MEDS: Normal Saline Flush 10 ML SYR IVP (21:30)
[2021-04-24] MEDS: Gabapentin 100 MG CAP PO (21:32)
[2021-04-24] MEDS: Lactated Ringers 1,000 ML 100 ML IV (21:41)
[2021-04-24] MEDS: traZODone 50 MG TAB PO (22:04)
--- NOTE | 2021-04-24 22:08 | PDOC.HHF2F_ITS ---
Home Health Certification Home Health Certification: 1. Encounter Date and Reason I certify that Randi Oswald was seen by Sue Montes on 04/24/21 and that I had a [id number] encounter with this patient that meets the physician face to face encounter requirements. 2. Clinical Findings Supporting Skilled Need and Homebound Status I certify that home health services are medically necessary, include either intermittent residential and/or physical/speech therapy, and that this patient is homebound in that absences from the home require considerable and taxing effort and are infrequent or of short duration, or are attributable to the need to receive medical care. [X] (a) Attached documentation from encounter provides clinical findings supporting skilled need and homebound status (including what assistance patient requires to leave the home). The encounter with the patient was in whole, or in part, for the following medical condition, which is the primary reason for home health care: Fpc: wound care/drain care Physical Therapy:strength and gait Speech Therapy: Homebound: pt is homebound and cannot drive 3. Certification and Authentication I certify that I composed the above information based on my clinical judgement relating to this patient's medical condition and, if applicable, clinical findings communicated to me by the NPP or inpatient physician who performed the Home Health Referral. All further orders will be obtained through (Community Based Physician - PCP)
--- NOTE | 2021-04-24 22:11 | W.PM.PROGNOT ---
Date of Service Date of service: 04/24/21 Time of Service: 16:00 Assessment and Plan Assessment and plan (1) Abdominal wall hernia: Status: Acute Assessment and plan: The patient is doing well post-op. Their pain is well controlled. They are having no nausea or vomiting. The pt is not having any chest pain or SOB, productive cough; no calf pain or swelling. The pt is making good urine. The pt pain is adequately controlled. The case was discussed with nursing and patient?s progress reviewed. All of the pt's home medications were addressed and adjusted accordingly for their oral intact status. HEENT: no jaundice. no eye pain/drainage/redness/swelling. Mild sore throat Cardio- NSR no chest pain, BP stable. Pulm: no sob or productive cough. no hemoptysis Incision- clean/dry. Dressing intact no excessive bleeding or drainage I discussed with the patient and/or there family about the findings in surgery and the pt's progress. We reviewed expectations for progress in the hospital; what the pt could expect for recovery time and length of stay. We discussed the importance of walking and pulmonary toilet to avoid blood clots and pneumonia. Continue current plans for pulmonary toilet, GI and DVT prophylaxis. We shall continue the current plan for pain management as it is at an appropriate level, and working well for the pt. Appropriate measures will be taken for constipation prevention, and this was also reviewed with the pt. The wound care plan was reviewed with nursing as well. Pt will need home RN for drain care. Should would benefit from PT as well. see orders Objective Last Vital Signs Temp 36.9 C 04/24/21 21:49 Pulse 79 04/24/21 21:49 Resp 22 04/24/21 21:49 BP 149/71 H 04/24/21 21:49 Pulse Ox 96 04/24/21 21:49 Laboratory Results - last 24 hr 04/24/21 12:30 Patient ABO/Rh Cancelled PAWSS Have you Been Recently Intoxicated or Drunk Within the Last 30 days?: No Have you Ever Experienced Previous Episodes of Alcohol Withdrawal?: No Have you ever Experienced Withdrawal Seizures?: No Have you ever Experienced Delirium Tremens(DT)s?: No Have you ever undergone Alcohol Rehabilitation Treatment (i.e, inpt ot outpatient treatment programs)?: No Have you ever Experienced Blackouts?: No Have you ever Combined Alcohol with other Downers within the last 90 days?: No Have you ever Combined Alcohol with any other Substance of Abuse during the last 90 days?: No Positive Blood Alcohol level on Presentation? [PCS.BAL]: No Evidence of Increased Autonomic Activity (i.e. HR>120, tremor, sweating, agitation, nausea)?: No Result: 0
--- NOTE | 2021-04-25 07:06 | W.PM.PROGNOT ---
Date of Service Date of service: 04/25/21 Time of Service: 07:06 Assessment and Plan Assessment and plan (1) Abdominal wall hernia: Status: Acute Assessment and plan: POD #1 s/p open abdominal hernia repair x 2 (right spegalian and right direct inguinal hernia) So far this morning pain appears to be well controlled. Will continue to monitor. DIET- Progress as tolerated Drain- With minimal sanguineous drainage Discussed the importance of sitting in the chair for all meals today. PT ordered Aggressive Pulmonary Toilet P// Pain control and begin activities OOB (ambulating, sitting in the chair) Subjective Subjective Interval history since last seen: Arrive with the patient sleeping comfortably. Patient reports that she is having some discomfort this morning, that increases with movement. She states she was able to sleep last night and tolerated the clear liquid diet well. Exam Const General: cooperative, healthy appearing and comfortable Orientation: alert and awake Resp Effort & Inspection: normal respiratory effort, no audible wheezes and no cough GI Palpation: soft, no guarding and tender in the RLQ Other: SHANE dressing in place, working well Matt drain in place with sanguineous drainage Objective Last Vital Signs Temp 37.6 C H 04/24/21 23:00 Pulse 82 04/24/21 23:00 Resp 18 04/24/21 23:00 BP 132/69 04/24/21 23:00 Pulse Ox 93 04/24/21 23:00 Laboratory Results - last 24 hr 04/24/21 12:30 Patient ABO/Rh Cancelled PAWSS Have you Been Recently Intoxicated or Drunk Within the Last 30 days?: No Have you Ever Experienced Previous Episodes of Alcohol Withdrawal?: No Have you ever Experienced Withdrawal Seizures?: No Have you ever Experienced Delirium Tremens(DT)s?: No Have you ever undergone Alcohol Rehabilitation Treatment (i.e, inpt ot outpatient treatment programs)?: No Have you ever Experienced Blackouts?: No Have you ever Combined Alcohol with other Downers within the last 90 days?: No Have you ever Combined Alcohol with any other Substance of Abuse during the last 90 days?: No Positive Blood Alcohol level on Presentation? [PCS.BAL]: No Evidence of Increased Autonomic Activity (i.e. HR>120, tremor, sweating, agitation, nausea)?: No Result: 0
[2021-04-25] MEDS: Psyllium PKT 1 EACH PO (07:46)
[2021-04-25] MEDS: Gabapentin 100 MG CAP PO (07:46)
[2021-04-25] MEDS: dilTIAZem CD 120 MG CAPCR PO (07:48)
[2021-04-25] MEDS: Enoxaparin 40 MG/0.4 ML SYR SC (07:48)
[2021-04-25] MEDS: Acetaminophen 500 MG TAB 1000 MG PO ×2 (07:49→16:09)
[2021-04-25] MEDS: Normal Saline Flush 10 ML SYR IVP (07:51)
[2021-04-25 08:00] VITALS: BP 125/61; PULSE 84; RESP 19; TEMP 38.2; O2SAT 94
--- NOTE | 2021-04-25 09:16 | IN_ITS ---
Date of service: 04/25/21 Time of Service: 09:16 PT Notes Visit Reasons: S/P Open Repair Right Spegalian and Direct Inguina Physical Therapy Inpatient Initial Evaluation Date: 04/25/2021 Referring Doctor: Sue Montes MD PT Orders: PT CONSULT: Walking/sp large hernia repair Precautions: Fall. Standard. Activity as tolerated. Patient Profile/Admitting Diagnosis: Mrs. Oswald is a 80-year-old female with diagnosis of iron deficiency anemia and right spigaleon/lateral of her ventral hernia and is status post repair on postoperative day 1 PMHX: Medical History Anemia of chronic disease Anxiety Balance problems Chronic back pain COPD (chronic obstructive pulmonary disease) CVA (cerebral vascular accident) 2006 Degenerative joint disease of right hip Dizzy Dysphagia Headache Heart murmur, systolic Heart palpitations History of cerebrovascular accident (CVA) due to ischemia HLD (hyperlipidemia) Hypertension Osteopenia Preoperative cardiovascular examination PVD (peripheral vascular disease) Sensory hearing loss Vertigo Weakness Surgical History Displaced fracture of right femoral neck (07/01/19) S/P cannulated screw fixation: 07/02/2019 Painful orthopaedic hardware RIGHT hip S/P removal 09/08/2020 S/P matrixectomy of toe of right foot Trigger finger, left Social History/Home Situation: Lives alone in an apartment. Daughter and son are very good support. Independent with all mobility ADLs using her single- point cane. No longer drives. Equipment Owned/DME: [facility] Subjective: Reports better pain level this morning compared to yesterday. Agreeable to being moved out of bed and to short distance walking using the front wheeled walker. Objective: General Observation: Surgical drain in place. Mental Status: Alert and oriented as to person, place, time, and purpose. Able to pay attention, focus, and respond appropriately. Pain: 5/10 in right hip and right abdominal area ROM: Right Upper Extremity: Shoulder Flexion WFL. Shoulder abduction WFL. Elbow flexion WFL. Wrist flexion WFL. Functional opening and closing of hand WFL. Left Upper Extremity: Shoulder Flexion WFL. Shoulder abduction WFL. Elbow flexion WFL. Wrist flexion WFL. Functional opening and closing of hand WFL. Right Lower Extremity: Hip flexion WFL. Hip abduction WFL. Knee flexion WFL. Ankle dorsiflexion WFL. Ankle plantarflexion WFL. Left Lower Extremity: Hip flexion WFL. Hip abduction WFL. Knee flexion WFL. Ankle dorsiflexion WFL. Ankle plantarflexion WFL. Strength: Right Upper Extremity: Shoulder flexors 5/5. Shoulder abductors 5/5. Elbow flexors 5/5. Elbow extensors 5/5. Business [employer] Report Developer strong. Left Upper Extremity: Shoulder flexors 5/5. Shoulder abductors 5/5. Elbow flexors 5/5. Elbow extensors 5/5. Business [employer] Report Developer strong. Right Lower Extremity: Hip flexors 4-/5. Hip abductors 4-/5. Knee flexors 4/5. Knee extensors 4/5. Ankle dorsiflexors 4/5. Ankle plantarflexors 4/5. Left Lower Extremity: Hip flexors 5/5. Hip abductors 5/5. Knee flexors 5/5. Knee extensors 5/5. Ankle dorsiflexors 5/5. Ankle plantarflexors 5/5. Bed Mobility/Transfers: Rolling contact-guard assist Supine to sit contact-guard assist with HOB at 45 degrees Sit to stand standby assist Stand to sit standby assist Bed to reclining chair standby assist Reclining chair to bed standby assist Gait: Instructed patient with level surface ambulation of 20 feet requiring standby assist assist using front wheeled walker with report of 5/10 pain in the right abdominal area in the right hip. Denae decreased. Step height on the right decreased. Step length on the left decreased. No L OB. Denies headache, chest pain, and dizziness. Minimal verbal cues given for walker management and overall safety. Balance: Static Sitting: Normal Dynamic Sitting: Good Static Standing: Fair fair Dynamic Standing: Special Tests: Mobility Limitations Standardized Measure [facility] AM-PAC 6 clicks Basic Mobility Inpatient Short Form: Raw Score: 18 CMS Score: 47% deficit Informed Consent/Education: Patient was instructed in purpose of PT consult and plan of care. Agreeable to proceed with established PT POC to achieve personal goals. Assessment: Mrs. Vega requires the use of a front wheeled walker to increase independence, reduce fall risk and minimize pain level. She presents with clinical signs and symptoms consistent with current/admitting diagnoses that have resulted to mobility limitations, gait instability, generalized weakness, and overall ADL decline as demonstrated by the following impairment level findings: 1. Decreased strength to right LE major muscle groups 2. Impaired sitting/standing balance 3. Impaired activity tolerance 4. Pain in right abdominal area and right anterior hip Impairments are contributing to the following functional limitations: 1. Decline in bed mobility skills 2. Decline in transfer skills 3. Difficulty with ambulation without assistive device and physical assistance 4. Increased completion time for mobility ADL performance 5. Increased risk for falls 6. Difficulty with managing steps alone safely Patient is assessed as a 04739 moderate complexity based on the following: History: 80-year-old female with past medical history as indicated above Examination: Demonstrable impairment in strength, balance, and mobility level with underlying impairments and functional limitations as exhibited above as well as deficit score of 47% utilizing the [facility] Mobility Inpatient Short Form Presentation: Evolving Decision Makin still moderate complexity Goals: Goals X1 week 1. Supine-Sit independent 2. Sit-Supine independent 3. Sit-Stand independent 4. Stand-Sit independent with front wheeled walker 5. Bed-Chair independent with front wheeled walker 6. Chair-Bed independent with front wheeled walker 7. Independent gait on level surface with use of front wheeled walker for at least 50 feet without report of pain nor dyspnea 8. Good static and dynamic standing balance/tolerance Plan of Care/Treatment Plan: 1-2x/day, 7 days/week x 1 week. Plan of care has been reviewed with the PHARMACY BUYER providing the service under Physical Therapy direction. Initiate Physical Therapy intervention for pain management as needed, strengthening, bed mobility, transfers, gait, stairs, balance training, and use of assistive device. DISCHARGE RECOMMENDATIONS: Patient will benefit from home health PT services in order to progress mobility level using least restrictive assistive ambulatory device, assess home safety, identify additional equipment needs, and establish a functional maintenance program that will increase ability of patient to remain at home. May benefit from the use of a front wheeled walker to maximize independence at home. TREATMENT CODE/TIME: 49220 x 24 minutes beginning at 9:16 AM. Thank you for the opportunity to participate in the care of this patient. Jennifer Galicia PT, DPT, CLT [facility] [place], [place]
[2021-04-25] MEDS: Citalopram 10 MG TAB PO (09:58)
[2021-04-25] MEDS: Valsartan 80 MG TAB 160 MG PO (09:58)
--- NOTE | 2021-04-25 10:21 | INITIAL_ITS ---
- If Service Date Differs Date of service: 04/25/21 Time of Service: 10:21 Care Management Initial Assess REASON FOR HOSPITALIZATION:: S/P open repair right spegalian and direct inguina. PAST MEDICAL HISTORY/PAST SURGICAL HISTORY:: Medical History: Anemia of chronic disease, Anxiety, Balance problems,. Chronic back pain, COPD (chronic obstructive pulmonary disease). CVA (cerebral vascular accident) - 2006, Degenerative joint disease of right hip, Dizzy, Dysphagia, Headache, Heart murmur, systolic, Heart palpitations, History of cerebrovascular accident (CVA) due to ischemia,. HLD (hyperlipidemia), Hypertension, Osteopenia, Preoperative cardiovascular examination, PVD (peripheral vascular disease), Sensory hearing loss, Vertigo, and Weakness. Surgical History: Displaced fracture of right femoral neck (07/01/19) - S/P cannulated screw fixation: 07/02/2019, Painful orthopaedic hardware - RIGHT hip - S/P removal 09/08/2020, S/P matrixectomy of toe of right foot, and Trigger finger, left. PREVIOUS FUNCTIONAL STATUS/SOCIAL/FAMILY SUPPORTS:: Randi is a 80 year old woman who lives alone in [place]. Her son, Zaki, and his family live next door to her. Randi proudly states she has 7 children, 13 grand children, and 6 great grand children. 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 She reports her children and a anabaptism full of people are her supports. CURRENT FUNCTIONAL STATUS:: Randi is sitting in a chair when CM comes to meet with her. She is pleasant and easily engages in conversation. She talks about her family and the various jobs she's held over the years. ADVANCE DIRECTIVES:: None on file. Has patient been provided with info about the portal/API?: No Did the patient sign up for the portal?: No CODE STATUS:: Full Code INSURANCE COVERAGE / FINANCIAL ISSUES:: [facility] [employer] of [place] and Medicaid. CURRENT HOME/COMMUNITY SERVICES/EQUIPMENT:: Randi has no home or community services. She owns a cane, walker, rollator, commode, and a shower chair. PRIMARY CARE PHYSICIAN:: KIMBERLY Cesar ([facility]). POTENTIAL DISCHARGE NEEDS:: Follow up appointments with PCP, surgeon, and new services. PATIENT/FAMILY EDUCATION NEEDS:: Review discharge instructions regarding medication and activity level; discussion of Ask Me Three and self-care. ANTICIPATED BARRIERS TO DISCHARGE:: No anticipated barriers at this time. TRANSPORTATION:: Via private vehicle with family. PLAN:: Randi will be discharged home with new [facility] nursing, PT, and OT services when medically cleared by provider. She will follow up with her PCP, surgeon, and discharge plan of care as instructed. Her daughter will drive her home via private vehicle when ready. CM will continue to follow.
[2021-04-25] MEDS: Milk of Magnesia 30 ML CUP PO (12:04)
[2021-04-25] MEDS: traMADol 50 MG TAB PO (12:05)
--- NOTE | 2021-04-25 12:34 | PDOC.HHF2F_ITS ---
Home Health Certification Home Health Certification: 1. Encounter Date and Reason I certify that Randi Oswald was seen by Sue Montes on 04/25/21 and that I had a [id number] encounter with this patient that meets the physician face to face encounter requirements. 2. Clinical Findings Supporting Skilled Need and Homebound Status I certify that home health services are medically necessary, include either intermittent correction and/or physical/speech therapy, and that this patient is homebound in that absences from the home require considerable and taxing effort and are infrequent or of short duration, or are attributable to the need to receive medical care. [X] (a) Attached documentation from encounter provides clinical findings supporting skilled need and homebound status (including what assistance patient requires to leave the home). The encounter with the patient was in whole, or in part, for the following medical condition, which is the primary reason for home health care: S/P Open Repair Right Spegalian and Direct Inguina Group Home: wound and drain care. empty LAVON twice a day and record output. Please make sure client brings there I/O to f/u clnic appt to determine when it is time to remove the drain. PICOS- NPWT dressing. reinforce edges if light is orange or red. Remove PICOS and do not replace on 04/30 Cover to shower. Physical Therapy & OT strength and gait Speech Therapy: no Homebound:yes 3. Certification and Authentication I certify that I composed the above information based on my clinical judgement relating to this patient's medical condition and, if applicable, clinical findings communicated to me by the NPP or inpatient physician who performed the Home Health Referral. All further orders will be obtained through _[facility] (Community Based Physician - PCP)
--- NOTE | 2021-04-25 12:39 | DSE_ITS ---
DS: Diagnosis Discharge Diagnosis (1) Iron deficiency anemia: Status: Acute (2) Former smoker: Status: Acute (3) S/P right inguinal herniorrhaphy: Status: Acute (4) Hernia of anterior abdominal wall: Status: Acute Discharge Plan Disposition Patient Disposition: HOME Condition: Good Discharge Details Reason For Visit: S/P Open Repair Right Spegalian and Direct Inguina Admit Date/Time: 04/24/21 10:31 Admit Provider: Sue Montes Attending Provider: Sue Montes [facility] Course: Patient underwent open hernia repair on 04/24/2021. She had a right-sided spigelian hernia and a right sided direct inguinal hernia repair. These were both repaired with mesh. Postoperatively she has done well. She is kept overnight for observation. She did have general anesthesia and a tap block. She has no chest pain or shortness of breath or cough today. She is able to tolerate a regular diet and is urinating. She has not yet moved her bowels. She was up walking with physical therapy. She would benefit from home PT OT. She needs home RN for drain and wound care. She will follow up in 2 week's time. Please see the op report for details of surgical procedure.. Patient's daughter will help her out at home. Home Meds and New Rx's Prescriptions: New tramadol 50 mg tablet 50 mg PO Q6H PRNQty: 14 RF: 0 Continued ipratropium bromide 21 mcg (0.03 %) spray,non-aerosol 2 spray intranasal BID-TID PRNRF: 0 pseudoephedrine-guaifenesin [Mucinex D] 60-600 mg tablet extended release 12 hr 1 tab PO Q12H PRNRF: 0 diltiazem HCl [Cartia XT] 120 mg capsule,extended release 24hr 120 mg PO DAILY RF: 0 hydrochlorothiazide 25 mg tablet 25 mg PO DAILY RF: 0 atorvastatin 10 mg tablet 10 mg PO DAILY RF: 0 ascorbic acid (vitamin C) 500 mg capsule 500 mg PO DAILY RF: 0 citalopram 10 mg tablet 10 mg PO DAILY Qty: 90 RF: 0 gabapentin 100 mg capsule 100 mg PO BID RF: 0 trazodone 50 mg tablet 25 - 50 mg PO .QHS RF: 0 Calcet Petites 200 mg calcium -250 unit tablet 3 tab PO DAILY RF: 0 famotidine 20 MG tablet 20 mg PO DAILY PRNRF: 0 valsartan 160 mg Tablet 160 mg PO DAILY RF: 0 ipratropium bromide 0.03 % Neche,Non-Aerosol 2 spray INTRANASAL TID PRNRF: 0 docusate sodium [Colace] 100 mg Capsule 100 mg PO TID PRN PRNQty: 30 RF: 0 Discontinued acetaminophen 500 mg capsule 500 mg PO Q6H PRNRF: 0 aspirin-dipyridamole [Aggrenox] 1 EACH capsule, ER multiphase 12 hr 25 - 200 cap PO BID RF: 0 tramadol 50 mg Tablet 50 mg PO Q8H PRN PRN (Reason: severe pain) Qty: 7 RF: 0 Discharge Instructions Additional Instructions: Dr. Montes HERNIA REPAIR ? POSTOPERATIVE INSTRUCTIONS Patients who have this type of surgery can usually be expected to return to regular activities three weeks and have minimal amounts of discomfort. ? LIFTING: Restrict your lifting to no more than five (5) pounds for the first week following surgery. For the second week after surgery, don?t lift more than ten pounds. We will decide when you are done with restrictions and when you can return to work, at your follow-up appointment. No sexual activity for two weeks. -We do want you up and walking after surgery. This will help prevent pneumonia and blood clots ? DIET: There are no dietary restrictions following surgery. ? INCISION CARE: Remove PICOs dressing on 04/30. You will need to cover this dressing to shower. Once the PICOs is off- you do not have to put another dressing on top. You can use dressings or Band-Aids if you so desire. Keep incision clean and dry ? SIGNS OF INFECTION: It is not unusual to have some black and blue discoloration of the skin around the incision. It will slowly disappear. If you have any increased redness, drainage, fever (above 100 degrees), please contact your doctor for an examination. ? DISCOMFORT: You may expect to have some mild discomfort at the incision sight. If severe pain develops you should contact your doctor for further instructions. ? URINATION: Patients who have surgery occasionally have problems urinating. If you experience problems and are not able to urinate within 6 hours following your surgery, please call your doctor immediately or go to your nearest Emergency Room for evaluation. ? DRIVING: NO driving for three (3) days after surgery, or if you are still taking narcotic pain medication. ? MEDICATIONS: Take Tylenol 1000mg by mouth every 8 hours Take the Tylenol continuously for the first 72hrs- not just when you have pain. Use the tramadol for breakthrough pain. Use ICE! Twenty minutes on, and then off, continuously for the first 72hours. If you are taking narcotic pain medication, follow the instructions on the label and do not drive. Pain medications can make you very constipated. Make sure you are moving your bowels daily. If not, take Miralax, milk of magnesia or magnesium citrate. -continue to hold Aggrenox. We will decide when to resume this at your f/u appt. -not changes in time of taking tylenol and tramadol. -Take a stool softner daily (Colcace) daily. -Remove PICOs dressing on 04/30. It does not need to be replaced. Cover to shower -Empty drain twice a day a record levels. Bring this record to your follow-up appointment. ? REPORT: Unusual swelling, severe pain, unresolved nausea, signs of infection, or difficulty in urination to your surgeon. Follow up in clinic with Dr. Montes 05/07 at 10:30. We will decide if it is time to move your drain at this appointment. You do have skin greg in place. They will be removed at this appointment. office: [phone] Activity:: No lifting over 5 pounds Equipment/Supplies:: Walker Diet:: As Tolerated Discharge Orders Discharge Orders: Discharge Order (Routine); Ordered 04/25/21 Ordered By: Sue Montes DS: Summary Time Spent with Patient providing and/or coordinating discharge services: Greater than 30 minutes Status at Discharge Functional status at discharge: uses cane/walker Overall status at discharge: patient is progressing back to baseline Mental Status: mental status grossly normal Speech and Movement: speech and movement normal Mood: congruent mood Affect: normal affect Exam Psych Mental Status: mental status grossly normal Speech and Movement: speech and movement normal Mood: congruent mood Affect: normal affect DS: Data Vitals/I&O Vitals and I&O: Vital Signs Temperature 38.2 C H 04/25/21 08:00 Temperature Source Tympanic 04/25/21 08:00 Pulse 84 04/25/21 08:00 Pulse Rhythm Regular 04/25/21 08:30 Respiratory Rate 19 04/25/21 08:00 Respiratory Effort Non-Labored 04/25/21 08:30 Respiratory Depth Normal 04/25/21 08:30 Respiratory Pattern Normal 04/25/21 08:30 Blood Pressure 125/61 04/25/21 08:00 Pulse Oximetry 94 04/25/21 08:00 Respiratory End-tidal CO2 30 04/24/21 15:55 Oxygen Delivery Method Room Air 04/25/21 08:00 Oxygen Flow Rate 0 04/25/21 08:00 Pain Level 5 04/25/21 12:05 Intake & Output 04/24/21 04/25/21 04/25/21 23:59 11:59 23:59 Intake Total 827.667 / 827.667 Output Total 1075 / 1075 785 / 785 Balance -247.333 / -247.333 -785 / -785 Intake: IV 827.667 / 827.667 Output: Drainage 75 / 75 60 / 60 Right Lower Abdomen 75 / 75 60 / 60 Urine 1000 / 1000 725 / 725 Other: Urine Color Yellow Yellow Urine Appearance Clear Clear Data Completed and Pending Labs on day of discharge: Labs from last 24 hours 04/24/21 12:30 Patient ABO/Rh Cancelled FOR[facility]LY [facility] Medical History Anemia of chronic disease Anxiety Balance problems Chronic back pain COPD (chronic obstructive pulmonary disease) CVA (cerebral vascular accident) 2006 Degenerative joint disease of right hip Dizzy Dysphagia Headache Heart murmur, systolic Heart palpitations History of cerebrovascular accident (CVA) due to ischemia HLD (hyperlipidemia) Hypertension Osteopenia Preoperative cardiovascular examination PVD (peripheral vascular disease) Sensory hearing loss Vertigo Weakness Surgical History Displaced fracture of right femoral neck (07/01/19) S/P cannulated screw fixation: 07/02/2019 Painful orthopaedic hardware RIGHT hip S/P removal 09/08/2020 S/P matrixectomy of toe of right foot Trigger finger, left Family History Mother Heart disease Social History Smoking/Tobacco Use Status: Former Tobacco Use Quit Date: 06/30/74 Smoking risk assessment performed?: Yes Alcohol Intake: never Drug use: Never Substance use type: does not use Household members: none Number of Children: 2 current occupation: Retired Sales/Clerical/Caregiver Current gender identity: female What is your relationship status?: Panel score (0-1 are the most socially isolated patients): 0 Do you feel safe at home: Yes Do you feel safe in your relationship?: Yes
--- NOTE | 2021-04-25 13:15 | TELEFU_ITS ---
Date of service: 04/25/21 Time of Service: 13:15 Nutrition Note NOTE: Assessment: Pt sleeping upon visit ? did not disturb. 80yo female s/p abdominal hernia repair. PMH nutritionally significant for dysphagia, weakness, anemia, PVD, CVA, HLD, HTN, osteopenia. Meds: citalopram, diltiazemCD, enoxaparin, famotidine, gabapentin, MOM, ducolax prn, ondansetron, psyllium, tramadol, trazodone, valsartan. Current BMI (25.2kg/m2) wnl for age and weight noted as stable x1 year. Diet order upgraded to post-op diet last night, working towards soft and bland, with low fiber/low lactose. Estimated nutrition needs: 1328 (REEx1.3PAL), 72-90g protein (1.2-1.5g/kg) and 1510mL fluid (25mL/kg). Diagnosis: no nutrition related diagnosis at this time Intervention: continue diet advancement as tolerated Monitoring/evaluation: will monitor diet advancement and toleration, weights, labs and signs of deterioration of nutrition status. Jaycob Franks NDTR ? Cad Design Engineer. Time Spent in Nutritional Counseling and Treatment: 0
--- NOTE | 2021-04-25 14:21 | PT.INNT ---
PT Notes Visit Reasons: S/P Open Repair Right Spegalian and Direct Inguina Pt was going to be leaving with in the next half hour. Pt reports that she is experiencing a lot of discomfort and does not with to participate in PT before she leaves due to her pain.
--- NOTE | 2021-04-25 16:20 | PDOC.CMDIS ---
- If Service Date Differs Date of service: 04/25/21 Time of Service: 16:20 LACE Index Scoring Tool - Questions: Length of Stay (in days): 1 Acuity (Admit via E.D.?): No Comorbidities: Cerebrovascular Disease, Chronic Pulmonary Disease E.D. Visits: 0 - Answers: Total Score: 4 Risk of Readmission: Low Risk Care Management Discharge Reason for Hospitalization: S/P open repair right spegalian and direct inguina. Discharge Plan: Randi is discharged home with new Home Health nursing, PT and OT. She will follow up with her PCP, surgeon, and discharge plan of care as instructed. Her daughter, Zulema, is driving her home via private vehicle. Patient/Family Education Needs: Review discharge instructions regarding medication and activity level, and discussion of self-care and Ask Me Three. Services Needed at Discharge: Home Health Care Services (RN, PT, OT)
--- NOTE | 2021-04-25 17:00 | PT.INDS ---
Date of service: 04/25/21 Time of Service: 17:00 PT Notes Visit Reasons: S/P Open Repair Right Spegalian and Direct Inguina Physical Therapy Inpatient Discharge Summary Date: 04/25/2021 Dates of Service: 04/25/2021 This is a clinical summary of care provided for the duration of dates listed above. No charge was made in the completion of this documentation. Referring Doctor: Sue Montes MD PT Orders: PT CONSULT: Walking/sp large hernia repair Precautions: Fall. Standard. Activity as tolerated. Patient Profile/Admitting Diagnosis: Mrs. Oswald is a 80-year-old female with diagnosis of iron deficiency anemia and right spigaleon/lateral of her ventral hernia and is status post repair on postoperative day 1. PMHX: Medical History Anemia of chronic disease Anxiety Balance problems Chronic back pain COPD (chronic obstructive pulmonary disease) CVA (cerebral vascular accident) 2006 Degenerative joint disease of right hip Dizzy Dysphagia Headache Heart murmur, systolic Heart palpitations History of cerebrovascular accident (CVA) due to ischemia HLD (hyperlipidemia) Hypertension Osteopenia Preoperative cardiovascular examination PVD (peripheral vascular disease) Sensory hearing loss Vertigo Weakness Surgical History Displaced fracture of right femoral neck (07/01/19) S/P cannulated screw fixation: 07/02/2019 Painful orthopaedic hardware RIGHT hip S/P removal 09/08/2020 S/P matrixectomy of toe of right foot Trigger finger, left Social History/Home Situation: Lives alone in an apartment. Daughter and son are very good support. Independent with all mobility ADLs using her single-point cane. No longer drives. Equipment Owned/DME: SPC Subjective: NT. See most recent EDUCATION PARAPROFESSIONAL notes. Objective: General Observation: NT. See most recent EDUCATION PARAPROFESSIONAL notes. Mental Status: NT. See most recent EDUCATION PARAPROFESSIONAL notes. Pain: NT. See most recent EDUCATION PARAPROFESSIONAL notes. ROM: Right Upper Extremity: Shoulder Flexion WFL. Shoulder abduction WFL. Elbow flexion WFL. Wrist flexion WFL. Functional opening and closing of hand WFL. Left Upper Extremity: Shoulder Flexion WFL. Shoulder abduction WFL. Elbow flexion WFL. Wrist flexion WFL. Functional opening and closing of hand WFL. Right Lower Extremity: Hip flexion WFL. Hip abduction WFL. Knee flexion WFL. Ankle dorsiflexion WFL. Ankle plantarflexion WFL. Left Lower Extremity: Hip flexion WFL. Hip abduction WFL. Knee flexion WFL. Ankle dorsiflexion WFL. Ankle plantarflexion WFL. Strength: Right Upper Extremity: Shoulder flexors 5/5. Shoulder abductors 5/5. Elbow flexors 5/5. Elbow extensors 5/5. Labor Relations Or Personnel Negotiator strong. Left Upper Extremity: Shoulder flexors 5/5. Shoulder abductors 5/5. Elbow flexors 5/5. Elbow extensors 5/5. Labor Relations Or Personnel Negotiator strong. Right Lower Extremity: Hip flexors 4-/5. Hip abductors 4-/5. Knee flexors 4/5. Knee extensors 4/5. Ankle dorsiflexors 4/5. Ankle plantarflexors 4/5. Left Lower Extremity: Hip flexors 5/5. Hip abductors 5/5. Knee flexors 5/5. Knee extensors 5/5. Ankle dorsiflexors 5/5. Ankle plantarflexors 5/5. Bed Mobility/Transfers: Rolling contact-guard assist Supine to sit contact-guard assist with HOB at 45 degrees Sit to stand standby assist Stand to sit standby assist Bed to reclining chair standby assist Reclining chair to bed standby assist Gait: Instructed patient with level surface ambulation of 20 feet requiring standby assist assist using front wheeled walker with report of 5/10 pain in the right abdominal area in the right hip. Denae decreased. Step height on the right decreased. Step length on the left decreased. No L OB. Denies headache, chest pain, and dizziness. Minimal verbal cues given for walker management and overall safety. Balance: Static Sitting: Normal Dynamic Sitting: Good Static Standing: Fair Dynamic Standing: Fair Assessment: Mrs. Oswald requires the use of a front wheeled walker to increase independence, reduce fall risk and minimize pain level. She presents with clinical signs and symptoms consistent with current/admitting diagnoses that have resulted to mobility limitations, gait instability, generalized weakness, and overall ADL decline as demonstrated by the following impairment level findings: 1. Decreased strength to right LE major muscle groups 2. Impaired sitting/standing balance 3. Impaired activity tolerance 4. Pain in right abdominal area and right anterior hip Impairments are contributing to the following functional limitations: 1. Decline in bed mobility skills 2. Decline in transfer skills 3. Difficulty with ambulation without assistive device and physical assistance 4. Increased completion time for mobility ADL performance 5. Increased risk for falls 6. Difficulty with managing steps alone safely Patient is assessed as a 65196 moderate complexity based on the following: History: 80-year-old female with past medical history as indicated above Examination: Demonstrable impairment in strength, balance, and mobility level with underlying impairments and functional limitations as exhibited above as well as deficit score of 47% utilizing the [facility] Mobility Inpatient Short Form Presentation: Evolving Decision Makin still moderate complexity Goals: Goals X1 week 1. Supine-Sit independent NOT MET 2. Sit-Supine independent NOT MET 3. Sit-Stand independent NOT MET 4. Stand-Sit independent with front wheeled walker NOT MET 5. Bed-Chair independent with front wheeled walker NOT MET 6. Chair-Bed independent with front wheeled walker NOT MET 7. Independent gait on level surface with use of front wheeled walker for at least 50 feet without report of pain nor dyspnea NOT MET 8. Good static and dynamic standing balance/tolerance NOT MET DISCHARGE RECOMMENDATIONS: Patient will benefit from home health PT services in order to progress mobility level using least restrictive assistive ambulatory device, assess home safety, identify additional equipment needs, and establish a functional maintenance program that will increase ability of patient to remain at home. May benefit from the use of a front wheeled walker to maximize independence at home. TREATMENT CODE/TIME: MN Thank you for the opportunity to participate in the care of this patient. Jennifer Galicia PT, DPT, CLT [facility] [place], [place]
== END 2021-04-25 16:51 | disposition home or self-care (01) | DRG 352 ==
LOC: PDS 11:05 → MS 04-25 00:43 → PDS 05-10 12:09 → MS 05-10 12:09
PROVIDERS: Admitting Provider Surgery; PCP Nurse Practitioner Family; Visit Provider Surgery
PROC: 0WUF0JZ Supplement Abdominal Wall with Synthetic Substitute, Open Approach (ICD-10-PCS; CPT 49560; principal; 2021-04-24 10:30)
DX: K45.8 Other specified abdominal hernia without obstruction or gangrene (principal); K40.90 Unilateral inguinal hernia, without obstruction or gangrene, not specified as recurrent; D50.9 Iron deficiency anemia, unspecified; J44.9 Chronic obstructive pulmonary disease, unspecified; F41.9 Anxiety disorder, unspecified; Z86.73 Personal history of transient ischemic attack (TIA), and cerebral infarction without residual deficits; R13.10 Dysphagia, unspecified; E78.5 Hyperlipidemia, unspecified; I10 Essential (primary) hypertension; M85.80 Other specified disorders of bone density and structure, unspecified site; I73.9 Peripheral vascular disease, unspecified; R53.1 Weakness; Z87.891 Personal history of nicotine dependence
CPT/HCPCS: 49560; 49568; 49505; 86900; 86901; 97162; J1650; C1781; J0360; J0690; J2001; J2250; J2270; J2370; J2704; J3010

== ENCOUNTER → 2021-05-07 10:29 | Outpatient (BNVA) | payer OTHER, MEDICAID, SELFPAY | PROVIDERS: PCP Nurse Practitioner Family; Referring Provider Nurse Practitioner Family; Visit Provider Surgery | DX: Z48.815 Encounter for surgical aftercare following surgery on the digestive system (principal) ==

== ENCOUNTER → 2021-05-16 10:00 | Outpatient (BNVA) | payer OTHER, MEDICAID, SELFPAY | PROVIDERS: PCP Nurse Practitioner Family; Referring Provider Nurse Practitioner Family; Visit Provider Surgery | DX: Z48.815 Encounter for surgical aftercare following surgery on the digestive system (principal); K43.9 Ventral hernia without obstruction or gangrene ==

== ENCOUNTER 2021-10-05 16:03 | Outpatient (REF) | payer OTHER, MEDICAID, SELFPAY ==
[2021-10-05 20:35] LABS: Absolute Basophil Count 0.02 10^3/uL (0.0-0.2); Absolute Eosinophil Count 0.05 10^3/uL (0.0-0.7); Absolute Lymphocyte Count 0.84 10^3/uL (1.2-3.4); Absolute Monocyte Count 0.51 10^3/uL (0.1-0.8); Absolute Neutrophil Count 3.77 10^3/uL (1.2-6.7); Basophils % 0.4; HCT 31.5 % (36.0-46.0); HGB 10.5 g/dL (11.2-15.7); Lymphocytes % 16.2; MCH 30.5 pg (27.0-33.0); MCHC 33.3 % (32.0-36.0); MCV 91.6 fL (80-95); MPV 10.8 fL (8.0-11.0); Monocytes % 9.8; Neutrophils % 72.6; Nucleated RBC 0 %; Platelet Count 220 10^3/uL (130-400); RBC 3.44 10^6/uL (3.93-5.22); RDW 13.2 % (11.7-14.6); RDW-SD 44.1 fL; WBC 5.19 10^3/uL (4.4-10.8)
[2021-10-05 20:48] LABS: Iron 46 ug/dL (50-170); Total Iron Binding Capacity 239 ug/dL (250-450); Transferrin Sat 19 % (15-50)
[2021-10-05 21:11] LABS: ALT 19 U/L (14-59); AST 17 U/L (15-37); Albumin 3.9 g/dL (3.4-5.0); Alkaline Phosphatase 64 U/L (46-116); Anion Gap 6.1 mmol/L (3-11); BUN 32 mg/dL (7-18); Bilirubin, Total 0.3 mg/dL (0.2-1.0); CO2 32.9 mmol/L (21.0-32.0); CREATININE 1.2 mg/dL (0.55-1.02); Calcium 9.1 mg/dL (8.5-10.1); Chloride 104 mmol/L (98-107); Estimated GFR 43.45 (mL/min/1.73m2); Ferritin 104 ng/mL (8-252); Glucose 132 mg/dL (74-106); Potassium 3.4 mmol/L (3.5-5.1); Sodium 143 mmol/L (136-145); Total Protein 6.2 g/dL (6.4-8.2); Vitamin B12 863 pg/mL (193-986)
== END 2021-10-05 16:04 | disposition home or self-care (01) ==
LOC: NCHCN 16:03
PROVIDERS: PCP Nurse Practitioner Family; Visit Provider Nurse Practitioner Family
DX: D64.9 Anemia, unspecified (principal); F03.90 Unspecified dementia, unspecified severity, without behavioral disturbance, psychotic disturbance, mood disturbance, and anxiety; I65.29 Occlusion and stenosis of unspecified carotid artery; N28.9 Disorder of kidney and ureter, unspecified; J44.9 Chronic obstructive pulmonary disease, unspecified; M85.80 Other specified disorders of bone density and structure, unspecified site; I10 Essential (primary) hypertension; R51.9 Headache, unspecified
CPT/HCPCS: 80053; 82607; 82728; 83540; 83550; 83735; 85025

== ENCOUNTER → 2021-10-29 08:07 | Outpatient (BNVA) | payer OTHER, MEDICAID, SELFPAY | PROVIDERS: PCP Nurse Practitioner Family; Referring Provider Nurse Practitioner Family; Visit Provider Student in an Organized Health Care Education/Training Program | DX: M16.11 Unilateral primary osteoarthritis, right hip (principal) | CPT/HCPCS: 99214 ==

== ENCOUNTER 2021-11-12 03:14 | Outpatient (CLI) | payer OTHER, MEDICAID, SELFPAY ==
[2021-11-12 12:08] LABS: Source Nasal/Nares
[2021-11-12 12:25] LABS: HCT 32.9 % (36.0-46.0); HGB 10.8 g/dL (11.2-15.7); MCH 30.3 pg (27.0-33.0); MCHC 32.8 % (32.0-36.0); MCV 92 fL (80-95); Platelet Count 215 10^3/uL (130-400); RBC 3.57 10^6/uL (3.93-5.22); RDW 12.8 % (11.7-14.6); RDW-SD 43.1 fL; WBC 4.04 10^3/uL (4.4-10.8)
[2021-11-12 13:13] LABS: Anion Gap 6.8 mmol/L (3-11); BUN 27 mg/dL (7-18); CO2 34.2 mmol/L (21.0-32.0); CREATININE 1.2 mg/dL (0.55-1.02); Calcium 9.2 mg/dL (8.5-10.1); Chloride 104 mmol/L (98-107); Estimated GFR 43.34 (mL/min/1.73m2); Glucose 104 mg/dL (74-106); Potassium 3.8 mmol/L (3.5-5.1); Sodium 145 mmol/L (136-145)
[2021-11-12 14:45] LABS: COVID-19 PCR Negative (Negative)
== END 2021-11-12 03:15 | disposition home or self-care (01) ==
LOC: LBO 03:14
PROVIDERS: PCP Nurse Practitioner Family; Visit Provider Student in an Organized Health Care Education/Training Program
DX: M25.551 Pain in right hip (principal); M16.11 Unilateral primary osteoarthritis, right hip; Z20.822 Contact with and (suspected) exposure to COVID-19; Z01.818 Encounter for other preprocedural examination; Z01.812 Encounter for preprocedural laboratory examination
CPT/HCPCS: 36415; 80048; 85027; 87635; U0005

== ENCOUNTER 2021-11-13 14:19 | Observation (INO) | payer OTHER, MEDICAID, SELFPAY ==
[2021-11-13] VITALS (17 sets, daily range): BP systolic 110–208; BP diastolic 41–119; PULSE 53–72; RESP 13–19; TEMP 36.2–36.6; O2SAT 95–100; BMI 23.0
--- NOTE | 2021-11-13 06:41 | W.PM.DSUDISC ---
Discharge Plan Disposition Patient Disposition: HOME Condition: Stable Discharge Details Reason For Visit: right DOMI Attending Provider: Darshan Jerez Primary Care Provider: Sheela Storey Home Meds and New Rx's Prescriptions: New acetaminophen 500 mg capsule 1,000 mg PO Q8H PRN PRNQty: 90 0RF celecoxib [Celebrex] 200 mg capsule 200 mg PO BID Qty: 60 0RF tramadol 50 mg tablet 50 mg PO Q6H PRNQty: 30 0RF Continued lysine [L-Lysine] 500 mg tablet 500 mg PO TID aspirin-dipyridamole 25-200 mg capsule, ER multiphase 12 hr 1 cap PO BID ipratropium bromide 21 mcg (0.03 %) spray,non-aerosol 2 spray intranasal TID PRN Rx Instructions: administer into each nostril tramadol 50 mg tablet 50 mg PO TID PRN vitamin B complex Tablet 1 tab PO DAILY Caltrate + D3 Plus Minerals 300 mg-800 unit -25 mg-0.5 mg tablet 1 tab PO DAILY pseudoephedrine-guaifenesin [Mucinex D] 60-600 mg tablet extended release 12 hr 1 tab PO Q12H PRN diltiazem HCl [Cartia XT] 120 mg capsule,extended release 24hr 120 mg PO DAILY hydrochlorothiazide 25 mg tablet 25 mg PO DAILY atorvastatin 10 mg tablet 10 mg PO DAILY ascorbic acid (vitamin C) 500 mg capsule 500 mg PO DAILY citalopram 10 mg tablet 10 mg PO DAILY Qty: 90 0RF Label Comments: Pt's daughter states she is no longer taking.HE gabapentin 100 mg capsule 100 mg PO BID trazodone 50 mg tablet 25 - 50 mg PO .QHS Label Comments: Pt. states she takes half to 3/4 of a tab at HS. Calcet Petites 200 mg calcium -250 unit tablet 3 tab PO DAILY famotidine 20 MG tablet 20 mg PO DAILY PRN valsartan 160 mg Tablet 160 mg PO DAILY docusate sodium [Colace] 100 mg Capsule 100 mg PO TID PRN PRNQty: 30 0RF aspirin-dipyridamole 25-200 mg Capsule, Er Multiphase 12 Hr 1 cap PO BID Discharge Instructions Additional Instructions: Total Hip Discharge Instructions Activity: The most important activity is to walk. You should try to take short walks a few times a day. You have no restrictions on movement or positioning, but do not try to force what you do. You will find some stiffness and weakness with hip flexion (lifting your knee). Do not try to strengthen this too early, continue to practice walking and stairs and this will come. - Outpatient physical therapy can be helpful to help return you to a normal gait and improve your flexibility and strength. This can start around 2 weeks. For some patients, it?s not necessary. Usually this is determined at the time of discharge or at the first post-operative visit. - You should wear the GORAN hose on both legs for 2 weeks. Dressing: Keep the surgical dressing in place for at least one week. After the first week it may be removed and replace with light gauze and tape or nothing. It may get wet after 3 days but avoid soaking the dressing. If it gets wet, just lightly pat dry. It is important to always keep some gauze between skin folds, especially when you are sitting. Spend some time with the wound exposed when you are lying flat as the incision does wrinkle onto itself. Medications: - You should take Tylenol and an anti-inflammatory Celebrex as your primary pain control medications. If the Celebrex is too expensive or not covered, please call the office for another alternative (Advil/Ibuprofen or Naproxen/Aleve). - Continue with your previously prescribed stronger pain medication Tramadol for breakthrough pain, take as needed as prescribed. - You have also been prescribed a stomach acid reduction agent Pantoprozole to help reduce stomach acid and reflux. - You will be continuing your previously prescribed Aggrenox for DVT prevention unless instructed otherwise. - If you have constipation you should take Colace or Miralax (both [id number]). It takes most people 3-4 days to have a bowel movement. Follow-up: 2 weeks If you have any acute concerns or questions, please do not hesitate to contact the office at [phone]. You may contact Dr. Jerez with any questions after hours through the hospital at [phone] or on his cell phone at [phone]. Referrals: Darshan Jerez MD [ [facility] STAFF PHYSICIAN] - Equipment/Supplies: Walker Activity:: Activity as Tolerated Remove Dressings/Wound Care:: Do Not Remove Shower/Bathe:: 72 hours Diet:: As Tolerated Discharge Orders Discharge Orders: Discharge Order (Routine); Ordered 11/13/21 Ordered By: Sharon Reinoso DS: Diagnosis Discharge Diagnosis (1) Degenerative joint disease of right hip: Status: Acute
[2021-11-13] MEDS: Celecoxib 200 MG CAP 400 MG PO (09:19)
[2021-11-13] MEDS: Acetaminophen 500 MG TAB 1000 MG PO ×3 (09:20→21:26)
--- NOTE | 2021-11-13 09:29 | ANES.PREOP_ITS ---
General Info Date of Service Date Performed: 11/13/21 Height: 5 ft 2 in Weight: 57.1 kg Body Mass Index (BMI): 23.0 Surgical Procedure: Operation Date: 11/13/21 12:05 Proposed Procedure Side Surgeon p Hip Total Hip Anterior Right Darshan Jerez MD Meds Allergies and Home Medications Allergies Allergy/AdvReac Type Severity Reaction Status Date / Time atenolol Allergy Unknown Verified 10/29/21 08:10 esomeprazole [From Nexium] AdvReac Unknown Verified 10/29/21 08:10 Home Medication Medication Instructions Recorded famotidine 20 mg tablet 20 mg PO DAILY PRN 02/06/17 ascorbic acid (vitamin C) 500 mg 500 mg PO DAILY 12/03/18 capsule atorvastatin 10 mg tablet 10 mg PO DAILY 12/03/18 diltiazem HCl 120 mg 120 mg PO DAILY 12/03/18 capsule,extended release 24 hr (Cartia XT) hydrochlorothiazide 25 mg tablet 25 mg PO DAILY 12/03/18 trazodone 50 mg tablet 25 - 50 mg PO .QHS 06/09/19 valsartan 160 mg tablet 160 mg PO DAILY 07/01/19 docusate sodium 100 mg capsule 100 mg PO TID PRN PRN #30 caps 07/05/19 (Colace) calcium carb and lactate 200 3 tab PO DAILY 08/02/20 mg-vitamin D3 6.25 mcg (250 unit) tablet (Calcet Petites) citalopram 10 mg tablet 10 mg PO DAILY #90 tabs 08/31/20 gabapentin 100 mg capsule 100 mg PO BID 10/27/20 pseudoephedrine-guaifenesin ER 60 1 tab PO Q12H PRN 03/19/21 mg-600 mg tablet,extend release 12hr (Mucinex D) lysine 500 mg tablet (L-Lysine) 500 mg PO PRN 05/07/21 aspirin 25 mg-dipyridamole 200 mg 1 cap PO BID 10/29/21 capsule,ext.release 12 hr multiphase calcium carb 300 mg-D3 800 1 tab PO DAILY 10/29/21 unit-mag ox 25 mg-copra processor 0.5 mg-farrah-Zn tablet (Caltrate + D3 Plus Minerals) ipratropium bromide 21 mcg (0.03 2 spray intranasal TID PRN 10/29/21 %) nasal spray tramadol 50 mg tablet 50 mg PO TID PRN 10/29/21 vitamin B complex 1 tab PO DAILY 10/29/21 aspirin 25 mg-dipyridamole 200 mg 1 cap PO BID 11/12/21 capsule,ext.release 12 hr multiphase acetaminophen 500 mg capsule 1,000 mg PO Q8H PRN PRN #90 caps 11/13/21 celecoxib 200 mg capsule (Celebrex) 200 mg PO BID #60 caps 11/13/21 tramadol 50 mg tablet 50 mg PO Q6H PRN #30 tabs 11/13/21 Current Visit Medications: Current Medications Generic Name Dose Route Start Last Admin Trade Name Freq PRN Reason Stop Dose Admin Acetaminophen 1,000 mg 11/13/21 06:00 11/13/21 09:20 Acetaminophen 500 Mg Tab PO 1,000 mg PREOP BRIA Administration Acetaminophen 1,000 mg 11/13/21 08:30 Acetaminophen 500 Mg Tab PO TID BRIA Celecoxib 400 mg 11/13/21 06:00 11/13/21 09:19 Celecoxib 200 Mg Cap PO 400 mg PREOP BRIA Administration Celecoxib 200 mg 11/13/21 08:30 Celecoxib 200 Mg Cap PO BID BRIA Docusate Sodium 100 mg 11/13/21 06:37 Docusate Sodium 100 Mg Cap PO BID PRN PRN Constipation Hydromorphone HCl 0.5 mg 11/13/21 06:37 Hydromorphone 2 Mg/Ml Vial IVP Q2H PRN PRN Tranexamic Acid 1,000 mg/ 60 mls @ 360 mls/hr 11/13/21 06:00 Sodium Chloride IV PREOP BRIA Ringer's Solution 1,000 mls @ 80 mls/hr 11/13/21 06:00 IV 12/12/21 23:59 INFUSION BRIA Cefazolin Sodium/Dextrose 2 gm in 50 mls @ 100 mls/hr 11/13/21 06:00 Ancef Duplex IVPB 12/12/21 23:59 PREOP BRIA Cefazolin Sodium/Dextrose 1 gm in 50 mls @ 100 mls/hr 11/13/21 16:00 Ancef Duplex IVPB 11/14/21 08:29 Q8H BRIA IV Miscellaneous Supplies 1 each 11/13/21 06:00 Iv Access IV 12/12/21 23:59 DIRECTED BRIA Ondansetron HCl 4 mg 11/13/21 06:37 Ondansetron 4 Mg/2 Ml Vial IVP Q6H PRN PRN Nausea Oxycodone HCl 0 mg 11/13/21 06:37 Oxycodone 5 Mg Tab PO Q3H PRN PRN Pain Pantoprazole Sodium 40 mg 11/14/21 07:30 Pantoprazole 40 Mg Tabcr PO DAILY@0730 BRIA Sodium Chloride 0 ml 11/13/21 06:00 Normal Saline Flush 10 Ml Syr IV 12/12/21 23:59 PRN PRN Sodium Chloride 0 ml 11/13/21 06:00 Normal Saline 10 Ml Vial IJ 12/12/21 23:59 DIRECTED PRN Sterile Water 0 ml 11/13/21 06:00 Water,Injection,Sterile 10 Ml Vial IJ 12/12/21 23:59 DIRECTED PRN PFSH Active Problems Active Problems: Problem Status Onset Code Headache R51 Dizzy R42 Vertigo R42 Heart murmur, systolic Dysphagia R13.10 PVD (peripheral vascular disease) I73.9 COPD (chronic obstructive pulmonary disease) J44.9 Balance problems R26.89 Weakness R53.1 Osteopenia M85.80 Chronic back pain M54.9, G89.29 Anxiety F41.9 Hypertension I10 HLD (hyperlipidemia) E78.5 CVA (cerebral vascular accident) I63.9 Heart palpitations R00.2 Iron deficiency anemia D50.9 Anticoagulation adequate with anticoagulant therapy Z79.01 Right carotid bruit R09.89 Right shoulder pain M25.511 Former smoker Z87.891 Sensory hearing loss H90.5 Abnormal auditory perception H93.299 Cataract H26.9 Pseudophakia Z96.1 Gait abnormality R26.9 Chronic daily headache R51 S/P cataract surgery Z98.49 History of cerebrovascular accident (CVA) due to ischemia Z86.73 Displaced fracture of right femoral neck 07/01/19 S72.001A Anemia of chronic disease D63.8 Anemia due to blood loss D50.0 Painful orthopaedic hardware T84.84XA Trochanteric bursitis, right hip M70.61 Abdominal wall hernia K43.9 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 joint disease of right hip M16.11 Preoperative cardiovascular examination Z01.810 Abdominal wall hernia K43.9 S/P right inguinal herniorrhaphy Z98.890, Z87.19 Hernia of anterior abdominal wall K43.9 Surgical History Surgical History History of cataract surgery History of tonsillectomy S/P matrixectomy of toe of right foot Trigger finger, left Tobacco Smoking/Tobacco Use Status: Former Tobacco Use Alcohol Alcohol Intake: never Substance Use Substance use: Never Substance use type: does not use Vital Signs and Lab Results Lab Results Blood Type / Crossmatch: No Data to Display Complete Blood Count: White Blood Count 4.04 10^3/uL (4.4-10.8) L 11/12/21 12:08 Red Blood Count 3.57 10^6/uL (3.93-5.22) L 11/12/21 12:08 Hemoglobin 10.8 g/dL (11.2-15.7) L 11/12/21 12:08 Hematocrit 32.9 % (36.0-46.0) L 11/12/21 12:08 Platelet Count 215 10^3/uL (130-400) 11/12/21 12:08 Complete Metabolic Panel: Sodium Level 145 mmol/L (136-145) 11/12/21 12:08 Potassium Level 3.8 mmol/L (3.5-5.1) 11/12/21 12:08 Chloride Level 104 mmol/L (98-107) 11/12/21 12:08 Carbon Dioxide Level 34.2 mmol/L (21.0-32.0) H 11/12/21 12:08 Blood Urea Nitrogen 27 mg/dL (7-18) H 11/12/21 12:08 Creatinine 1.2 mg/dL (0.55-1.02) H 11/12/21 12:08 Estimated GFR/1.73 m2 43.34 (mL/min/1.73m2) 11/12/21 12:08 Calcium Level 9.2 mg/dL (8.5-10.1) 11/12/21 12:08 Glucose Level 104 mg/dL (74-106) 11/12/21 12:08 Liver Function Panel: No Data to Display Coagulation Panel: No Data to Display Cardiac Panel: No Data to Display Arterial Blood Gas: No Data to Display Venous Blood Gas: No Data to Display Pancreas Panel: No Data to Display Thyroid Panel: No Data to Display Infectious Disease: Coronavirus (COVID-19)(PCR) Negative (Negative) 11/12/21 11:58 Coronavirus 2019 Source Nasal/Nares 11/12/21 11:58 Blood Cultures: No Data to Display Toxicology Panel: No Data to Display Imaging and Studies Imaging and Studies Study information below may be from another EMR and interpreted by another provider. Please see original notes in EMR for more complete details. EKG Summary: Conclusion Sinus rhythm...normal P axis, V-rate 50- 99 Probable left atrial enlargement...P >50mS, <-0.10mV V1 Right bundle branch block...QRSd>120, terminal axis(90,270) Baseline wander in lead(s) II,III,aVF Echocardiogram Summary: Conclusion Left Ventricle : The left ventricle is normal size. The left ventricular ejection fraction is within the normal range. There is normal left ventricular wall thickness. There is normal LV segmental wall motion. The left ventricular diastolic function is abnormal. LVEF is 60%. Right Ventricle : The right ventricle is normal size. The right ventricular systolic function is normal. The RVSP is 24.2mmHg. Atria : The left atrium size is normal. The right atrium size is normal. Valves: There are no hemodynamically significant valvular lesions. Great Vessels : The aortic root is normal in size. The ascending aorta is normal in size. IVC is normal in size and collapses >50% with inspiration. Carotid Artery Summary:: RIGHT CAROTID ARTERY: There is mild diffuse plaque in the right common carotid artery. Also plaque seen in the right carotid bulb, more so on the posterior wall and this appears slightly irregular. Plaque extends into the proximal right ICA. There is slightly elevated flow velocities demonstrated within the mid level right ICA in the neck with peak systolic velocity 149 cm/seconds and peak diastolic velocity 45 cm/seconds, consistent with 50-69 percent stenosis. The right internal carotid artery is noted to be somewhat tortuous in the neck. LEFT CAROTID ARTERY: There is also some plaque noted in the left common carotid artery and carotid bulb and proximal left ICA peak systolic velocity is in the distal ICA measuring 111 cm per sec and peak diastolic velocity is 33 cm/second. These findings are consistent with milder stenosis of less than 50 percent. Anesthesia Assessment and Plan Anesthesia History Personal History: No History of Anesthesia Complications Family History: No Family History of Anesthesia Complications Exercise Tolerance Exercise Tolerance: Metabolic Equivalents>4 Pertinent Negatives Pertinent Negatives: No Symptoms of GERD, No Major Cardiovascular Symptoms or Complaints, No Major Pulmonary Symptoms or Complaints and No History of CVA/TIA Cardiac & Pulmonary Exam Cardiac Exam: Normal S1/S2 Heart Sounds Pulmonary Exam: Clear Bilateral Breath Sounds Implantable Cardiac Device Does patient have a Pacemaker or an ICD?: No Airway Exam Known Difficult Airway: No Mallampati Class: 3 Mouth Opening: Normal (> 3cm) Thyromental Distance: Greater than 3 cm Neck Range of Motion: Full ROM Neck Circumference: Normal Teeth Condition: Edentulous ASA Classification ASA Score: ASA 3 Emergency Case?: No NPO Status NPO Status: NPO Clears >2 hours, Solids >8 hours Anesthesia Plan Resuscitation Status: Full Code Anesthesia Technique: General Anesthesia Airway Planned: Endotracheal Tube Monitors Used: Standard Monitors
[2021-11-13] MEDS: Lactated Ringers 1,000 ML 80 ML IV (09:45)
--- NOTE | 2021-11-13 09:45 | DI.RAD_ITS ---
Exam(s) XR HIP RT IN OR EXAM: XR HIP RT IN OR CLINICAL HISTORY: DJD RIGHT HIP. TECHNIQUE: 2D digital imaging was performed. COMPARISON: No exams were available for comparison FINDINGS: Fluoroscopy was provided during right hip arthroplasty. See procedure report for details Total fluoroscopy time 16 seconds total cumulative dose 1.31mGy IMPRESSION: DATA REPOSITORY: RADIATION DOSE DELIVERED:
[2021-11-13] MEDS: ceFAZolin 2 GM/50 ML BAG IVPB (10:48)
--- NOTE | 2021-11-13 12:02 | ROE_ITS ---
Date of service: 11/13/21 Time of Service: 12:02 Operative Note Operative Note DATE OF PROCEDURE: 11/13/21 PRE-OP DIAGNOSIS: Right Hip Femoral Neck Malunion POST-OP DIAGNOSIS: same PROCEDURE: Right Anterior Total Hip Arthroplasty with Intraoperative Navigation SURGEON: Darshan Jerez SALICYLIC ACID BLENDER: Sharon Reinoso ANESTHESIA TYPE: Spinal Refer to Anesthesia Record ESTIMATED BLOOD LOSS: 100 PATHOLOGY: none sent TOURNIQUET TIME: 0 COMPLICATIONS: None Patient was transported to: PACU Patient's condition: stable Implants: 1. Depuy [place] Acetabular Component, 48mm 2. Depuy Acetabular Liner, [id number] 3. Depuy Corail Standard Collared Femoral Stem, Size 11 4. Depuy Altrx Ceramic Femoral Head, Size 32+1mm Indications: I have seen Randi in clinic for symptoms of hip arthritis and dysfunction from a femoral neck malunion treated initially with cutaneous screws which have since been removed. Randi has exhausted nonoperative methods and was having significant limitations in daily function and desired better function and less pain. I discussed the technical details of a hip replacement. I explained the risks of the procedure to include, but not limited to, bleeding, infection, pain, stiffness, fracture, damage to nerves and vessels, damage to muscles and tendons, loosening, instability, leg length inequality, need for repeat procedure, blood clot and cardiopulmonary demise. Despite these risks, she elected to proceed. Findings: There was a notable malunion about the femoral neck with step-off at the neck level and significant shortening. There was chondromalacia seen over the superior posterior portion of the femoral. Procedure Description: Randi was greeted in the preoperative holding area where the correct side was identified and marked. The consent was reviewed with the patient and signed. The history and physical was updated. All questions were answered. She was taken back to the operating room. A general anesthetic was then administered. The feet were wrapped with cast padding and Coban and then placed into the boot liners and then into the boots. Care was taken to protect the skin and make sure the heels were fully down and the boots were stable. The patient was then positioned onto the HANA table. Both legs were held in a neutral position. SCDs were applied. The patient was then slid down onto a peroneal post. Prophylactic antibiotics in the form of cefazolin were administered. 1g of Tranxemic Acid was given intravenously within 30 minutes of incision. The right leg was then prepped with Chloraprep and draped in a standard fashion. A second prep with Chloraprep was performed prior to placement of a shower-curtain type drape with Iodine impregnated skin protection. A timeout to confirm correct identity, side and site, procedure, allergies, anesthesia, and medical concerns was performed. An obliquely oriented incision was made starting lateral to the ASIS and running distal over the Tensor Fascia Ivet (TFL) muscle belly toward the fibular head, approximately 10cm. The skin and soft tissue was dissected sharply, through Vasile?s fascia, and to the fascia of the TFL. With the fascia and superior border of the IT band identified, the fascia was incised with a new knife just above any perforators from the IT band. The TFL muscle belly was bluntly dissected away from the fascia and moved laterally. The fat between TFL and rectus was identified to ensure the dissection was not within the TFL. Blunt dissection created space between abductors and the capsule and retractor was placed over the lateral femoral neck. The fibers of the rectus femoris tendon were identified and these were freed from the anterior capsule. A second cobra retractor was placed around the medial femoral neck. The TFL was further retracted laterally to show the deep fascia. Careful dissection through this layer identified three main crossing vessels of the lateral femoral circumflex. These were cauterized in multiple locations and then cut without any noticeable bleeding. The TFL was further released bluntly from the deep fascia to expose anterior hip capsule and fat the Colt orthopaedic retractor was then placed beneath the TFL and against sartorius and medial soft tissues to protect and retract the soft tissues. A T-capsulotomy was then performed starting at the superior lateral acetabulum and moving distally to the intertrochanteric ridge. These capsular flaps were tagged with a No. 1 Ethibond and elevated from within. The capsular flaps were released to the shoulder of the lateral neck and to the lesser trochanter to give excellent visualization of the proximal femur. There is a notable malunion about the femoral neck with a step-off about the femoral neck with the proximal portion posterior and short. A neck osteotomy was performed using an oscillating saw based on preoperative templates. This cut started in the shoulder and of the lateral neck and exited medially. The saw was at all times directed medially to avoid injury to the greater trochanter. Gross traction was applied to the leg and the osteotomy opened. The femoral head was removed with a corkscrew, making sure to protect the TFL on its exit. Traction was released after head removal. This was measured on the back table to determine the starting reamer size. Portions of the rectus obscuring visualization were minimally elevated off the superior acetabulum. An anterior retractor was placed over the anterior wall between capsule and labrum and attached to the Gripper retraction system. The femur was rotated to 90 degrees and medial capsule was fully released until the lesser trochanter was palpable and visible; the femur was returned to 30 degrees. A posterior retractor was placed similarly between capsule and labrum. This provided excellent visualization. The contents of the cotyloid fossa were removed with electrocautery and the labrum was removed with a knife. Acetabular reaming began with a 44 mm reamer. This first reaming was directed anterior to posterior and medial to get down to the true floor. This was inspected and reamed until the true floor was reached. The anterior retractor was then released and entry and exit was provided by traction on the capsular flaps. I then reamed sequentially up to a 48mm reamer where good fit was obtained. The larger reamers were oriented based on anatomical reference of the anterior and lateral schmid to ensure proper abduction and anteversion. Positioning and size was confirmed with the fluoroscopy. A 48mm Depuy [place] acetabular component was selected. The acetabulum was reamed around the periphery with the selected acetabular size to prevent a rim fit. The deep tissues were irrigated. The acetabular component was then impacted in a position of about 40-45 degrees of abduction and 15-20 degrees of anteversion, using the patient?s anatomy as the ultimate landmark. Fluoroscopy was used to confirm this. There was excellent scouring machine operator of the acetabular component and the inserting handle was removed. The acetabular liner, Depuy 48x32 mm polyethylene liner, was inserted and lined up with the tines of the acetabular component. There was no soft tissue interposition. The liner was then impacted into position and confirmed to be well-seated. A portion of the khalif-articular cocktail was then injected around the acetabulum into the capsule and periosteum. This cocktail consisted of 123mg of Ropivacaine, 0.25mg of Epinephrine, 0.04mg of Clonidine, and 15mg of Ketorolac, diluted to 50cc. The leg was rotated to 120 degrees. Any remaining medial capsule was released until the lesser trochanter was easily palpable. A retractor was placed medially. The lateral capsule was further released into the shoulder to allow access to the greater trochanter. A Morton retractor was placed over the greater trochanter which allowed the trochanter to flip in front of the capsule for excellent exposure. The leg was brought down into maximal extension and 20 degrees of adduction while ensuring there was no impingement on the acetabulum. Any remnant capsule within the trochanter was released. Piriformis and obturator externis were identified and protected. There was excellent access to the proximal femur. The lateral neck remnant was removed with a rongeur. A blunt canal probe was used to identify the canal and trajectory for later broaching. A box osteotome initiated the broach course. A small curved rasp and a curved curette were used to work laterally. Broaching then began with a size 8 Corail broach. This was inserted manually around the trochanter and into the canal before mallet blows. The broach was seated to the neck cut level based on the neck cut and the preoperative template. Sequential broaching was continued with the WildBluese pneumatic broaching device until a tight fit was obtained with good rotational control of the femur. A trial standard short neck neck was inserted along with a +5 trial head. The leg was brought out of extension and adduction and then reduced with traction and internal rotation. The leg was stable anteriorly in a position of 30 degrees of extension and 90 degrees of external rotation. Fluoroscopy was used to ensure there was no fracture and the stem was seated well. Leg lengths were checked with an AP pelvis and pelvic reference points. [employer] navigation system was used to confirm appropriate positioning and leg length and offset. This still did not seem to recreate the leg length substantial enough given the shortening that she had and therefore went to a standard stem with a +1 head. Once content with the desired offset and leg lengths, the leg was brought back into extension, external rotation and adduction. The periosteum and surrounding tissue was injected with remaining portion of the khalif-articular cocktail. The proximal femur was irrigated as well as the deep tissues. The [employer] Corail standard collared stem, size 11, was then manually inserted into the proximal femur making sure to control rotation. It was then malleted into position with light blows, giving breaks to allow bone expansion and decrease risk of fracture. The selected Depuy Altrx Ceramic Head, size 32+1mm, was then placed onto the clean and dry trunnion and secured with impaction onto the tapered fit. The leg was brought back out of extension and adduction and reduced with traction and internal rotation. Stability was confirmed with no shuck at 90 degrees of external rotation and 30 degrees of extension. No impingement through range of motion arc. Final x-ray images were obtained with fluoroscopy to confirm adequate positioning and no intraoperative fracture. The deep tissues were thoroughly irrigated with Surgiphor, betadine solution. This was allowed to sit in the wound for 3 minutes before being thoroughly irrigated out with normal saline. The capsule was then reapproximated with the previously placed Ethibond sutures. The TFL fascia was finally closed with a No. 2 Stratafix, barbed suture. Deep tissues were then reapproximated with 0 Vicryl and a running 2-0 Vicryl. The skin was closed with a running 4-0 Monocryl in a subcuticular fashion. This was reinforced with skin glue. A Mepilex silver dressing was applied. At the end of the case, all counts were correct. Randi was transferred to the hospital bed without difficulty and suffering no apparent complication. Randi has a good prognosis. Physical therapy will start today and without restrictions, weight-bearing as tolerated. She will return to her home dose of Aggrenox for DVT prophylaxis.
[2021-11-13] MEDS: HYDROmorphone 2 MG/ML VIAL IVP ×5 (12:38→13:25)
[2021-11-13] MEDS: Normal Saline 10 ML VIAL IJ (12:39)
--- NOTE | 2021-11-13 15:05 | PT.INIE ---
Date of service: 11/13/21 Time of Service: 15:05 PT Notes Visit Reasons: right DOMI Physical Therapy Inpatient Initial Evaluation Date: 11/13/2021 Referring Doctor: MALLORY Mckeon PT Orders: PT CONSULT: S/p Ortho surgery Precautions: Fall. Standard. WBAT on right LE with AD. Patient Profile/Admitting Diagnosis: Randi is a 81-year-old female with degenerative joint disease of the right hip and is status post anterior right total hip arthroplasty on postoperative day 0. PMHX: Medical History? Anemia of chronic disease Anxiety Balance problems Chronic back pain COPD (chronic obstructive pulmonary disease) CVA (cerebral vascular accident) 2006 Degenerative joint disease of right hip Dizzy Dysphagia Headache Heart murmur, systolic Heart palpitations History of cerebrovascular accident (CVA) due to ischemia HLD (hyperlipidemia) Hypertension Osteopenia Preoperative cardiovascular examination PVD (peripheral vascular disease) Sensory hearing loss Vertigo Weakness Surgical History? Displaced fracture of right femoral neck (07/01/19) S/P cannulated screw fixation: 07/02/2019 Painful orthopaedic hardware RIGHT hip S/P removal 09/08/2020 S/P matrixectomy of toe of right foot Trigger finger, left Social History/Home Situation: Lives alone in an apartment.? Son and son's family live close by and are very good support.? Independent with all mobility ADLs using her single-point cane.? No longer drives. Equipment Owned/DME: [facility] Subjective: Pleasant and cooperative. Reports 3/10 pain in the R hip and thigh at rest which seemed to have felt better after ambulation activity. States that due to previous stroke, she walks differently. Objective: General Observation: Patient in NAD. Mepilex Ag over surgical incision. TEDS in B legs. IV in the left UE. Bilateral hearing aids in place. Nurse Sharon in room initiating nurse admission/assessment for patient. Mental Status: Alert and oriented as to person, place, time, and purpose. Able to pay attention, focus, and respond appropriately. Pain: 3/10 in right hip ROM: Right Lower Extremity: Hip flexion WFL. Hip abduction WFL. Knee flexion WFL. Ankle dorsiflexion to neutral only.. Ankle plantarflexion WFL. Left Lower Extremity: Hip flexion WFL. Hip abduction WFL. Knee flexion WFL. Ankle dorsiflexion WFL. Ankle plantarflexion WFL. Strength: Right Lower Extremity: Hip flexors 4-/5. Hip abductors 4-/5. Knee flexors 4/5. Knee extensors 4/5. Ankle dorsiflexors 3-/5. Ankle plantarflexors 4-/5. Left Lower Extremity: Hip flexors 5/5. Hip abductors 5/5. Knee flexors 5/5. Knee extensors 5/5. Ankle dorsiflexors 5/5. Ankle plantarflexors 5/5. Bed Mobility/Transfers: Supine to sit SBA with HOB 30 degrees Sit to stand contact-guard assist Stand to sit standby assist Bed to reclining chair contact-guard assist Gait: Instructed patient with level surface ambulation of 30 feet requiring contact-guard assist using front-wheeled walker with report of 3/10 pain in the right hip. Denae decreased. Step height on the right decreased. Step length on the left decreased.? No LOB.? Denies headache, chest pain, and dizziness.? Minimal verbal cues given for walker management and overall safety. Balance: Static Sitting: Normal Dynamic Sitting: Good Static Standing: Fair Dynamic Standing: Fair Special Tests: Mobility Limitations Standardized Measure [facility] 6 clicks Basic Mobility Inpatient Short Form: Raw Score: 19 ? CMS Score: 42% deficit? ? ? Informed Consent/Education:? Patient was instructed in purpose of PT consult and plan of care. Agreeable to proceed with established PT POC to achieve personal goals. ASSESSMENT: Randi is a 81-year-old female with degenerative joint disease of the right hip and is status post anterior right total hip arthroplasty on postoperative day 0. Randi requires the use of a front-wheeled walker to increase independence, reduce fall risk and minimize pain level. She presents with clinical signs and symptoms consistent with current/admitting diagnoses that have resulted to mobility limitations, gait instability, generalized weakness, and overall ADL decline as demonstrated by the following impairment level findings: 1.? Decreased strength to right LE? major muscle groups 2.? Impaired sitting/standing balance 3.? Impaired activity tolerance 4.? Pain in right abdominal area and right anterior hip Impairments are contributing to the following functional limitations: 1.? Decline in bed mobility skills 2.? Decline in transfer skills 3.? Difficulty with ambulation without assistive device and physical assistance 4.? Increased completion time for mobility ADL performance 5.? Increased risk for falls 6.? Difficulty with managing steps alone safely Patient is assessed as a 03543 moderate complexity based on the following: History: 80-year-old female with past medical history as indicated above Examination: Demonstrable impairment in strength, balance, and mobility level with underlying impairments and functional limitations as exhibited above as well as deficit score of 47% utilizing the [facility] Mobility Inpatient Short Form Presentation: Evolving Decision Makin still moderate complexity Goals: Goals X1 week 1. Supine-Sit independent 2. Sit-Supine independent 3. Sit-Stand independent 4. Stand-Sit independent with front-wheeled walker 5. Bed-Chair independent with front-wheeled walker 6. Chair-Bed independent with front-wheeled walker 7. Independent gait on level surface with use of front-wheeled walker for at least 100 feet without report of pain nor dyspnea 8. Good static and dynamic standing balance/tolerance Plan of Care/Treatment Plan: 1-2x/day, 7 days/week x 1 week. Plan of care has been reviewed with the [employer]TER providing the service under Physical Therapy direction. Initiate Physical Therapy intervention for pain management as needed, strengthening, bed mobility, transfers, gait, stairs, balance training, and use of assistive device. DISCHARGE RECOMMENDATIONS: Patient will benefit from home health PT services in order to progress mobility level using least restrictive assistive ambulatory device, assess home safety, identify additional equipment needs, and establish a functional maintenance program that will increase ability of patient to remain at home.? May benefit from the use of a front-wheeled walker to maximize independence at home. TREATMENT CODE/TIME: 12846 x 20 minutes, 06165 x 15 minutes beginning at 15:05 PM. Thank you for the opportunity to participate in the care of this patient. Jennifer Galicia PT, DPT, CLT [facility] [place], [place]
--- NOTE | 2021-11-13 15:05 | W.ANESPOSTOP ---
Postoperative Evaluation Date, Time and Location Date Performed: 11/13/21 Time Performed: 15:05 Patient Location: PACU Vital Signs Most Recent Imported Vital Signs: Most Recent Vital Signs Temp Pulse Resp BP Pulse Ox 36.6 C 59 L 14 160/53 H 99 11/13/21 14:48 11/13/21 14:48 11/13/21 14:48 11/13/21 14:48 11/13/21 14:48 Pain Score Most Recent Pain Score: Most Recent Pain Score Pain Level 0 11/13/21 12:25 Assessment Mental Status: Awake (Alert & Oriented to Patient Baseline) Airway and Respiratory Function: Patent airway with normal (patient baseline) respiratory exam Cardiovascular Function: Hemodynamically Stable Hydration Status: Adequately Hydrated Nausea & Vomiting: No Nausea or Vomiting Pain: Pain is tolerable per patient Peripheral Nerve Block: Patient did not receive a nerve block Postoperative Comments:: Being admitted
[2021-11-13] MEDS: oxyCODONE 5 MG TAB PO (17:57)
[2021-11-13] MEDS: Normal Saline Flush 10 ML SYR IV (17:58)
[2021-11-13] MEDS: ceFAZolin 1 GM/50 ML BAG IVPB (17:58)
[2021-11-13] MEDS: Celecoxib 200 MG CAP PO (21:26)
[2021-11-13] MEDS: traZODone 50 MG TAB 25 MG PO (21:26)
[2021-11-13] MEDS: Refresh PLUS Eye Drops 0.4ml 1 EACH OU (23:21)
[2021-11-14] MEDS: ceFAZolin 1 GM/50 ML BAG IVPB ×2 (02:08→09:21)
[2021-11-14] MEDS: oxyCODONE 5 MG TAB PO ×2 (02:12→08:35)
[2021-11-14] MEDS: Refresh PLUS Eye Drops 0.4ml 1 EACH OU (02:12)
[2021-11-14] MEDS: Lactated Ringers 1,000 ML 80 ML IV (03:12)
[2021-11-14 03:15] VITALS: BP 114/50; PULSE 64; RESP 14; TEMP 36.9; O2SAT 95
[2021-11-14 07:33] VITALS: BP 111/62; PULSE 66; RESP 17; TEMP 37.1; O2SAT 95
[2021-11-14] MEDS: dilTIAZem CD 120 MG CAPCR PO (08:33)
[2021-11-14] MEDS: hydroCHLOROthiazide 25 MG TAB PO (08:34)
[2021-11-14] MEDS: Acetaminophen 500 MG TAB 1000 MG PO (08:34)
[2021-11-14] MEDS: Valsartan 80 MG TAB 160 MG PO (08:34)
[2021-11-14] MEDS: Atorvastatin 10 MG TAB PO (08:34)
[2021-11-14] MEDS: Vitamins B Comp w/C TAB 1 TAB PO (08:35)
[2021-11-14] MEDS: Celecoxib 200 MG CAP PO (08:35)
[2021-11-14] MEDS: Pantoprazole 40 MG TABCR PO (08:35)
[2021-11-14] MEDS: Dexamethasone 4 MG TAB PO (08:36)
[2021-11-14] MEDS: Ascorbic Acid 500 MG TAB PO (08:36)
--- NOTE | 2021-11-14 09:24 | PT.INTREAT ---
Date of service: 11/14/21 Time of Service: 07:40 PT Notes Visit Reasons: right DOMI Inpatient Physical Therapy Treatment Note [facility] Date: 11/14/2021 PRECAUTIONS: WBAT R, Activity as tolerated SUBJECTIVE: Randi states that she hopes to go home today. She is pleasant and agreeable to participating in PT. OBJECTIVE: PAIN: Patient c/o R hip pain with ther ex BED MOBILITY/TRANSFERS Supine-sit: I with HOB flat Sit-supine: I with HOB flat Sit-stand: I Stand-sit: I Bed-Chair: S Chair-bed: S GAIT Assistive Device: FWW Weight bearing: WBAT R Assist: SBA Distance: 200' Deviation: Decreased safety awareness, antalgic gait, cueing for decreased pacing, cueing for FWW management for safety THEREX: Patient was instructed in a LE strengthening and stabilization program, to include: ankle pumps, quad sets, glute sets, heel slides, hip abduction, LAQ and hip flexion exercises completed in both seated and supine positions. ASSESSMENT: Patient tolerated session well, although with R hip discomfort with supine ther ex completion. She demonstrates decreased safety awareness, demonstrating increased sheng and with use of FWW. She demonstrates an antalgic gait pattern at this time. PLAN: Patient to discharge to home later today, per provider. Recommend follow up with PT upon discharge, for continued gait training and support for increased safety awareness. TREATMENT CODE/TIME: 23 minutes; 62810, 33814 (07:40)
--- NOTE | 2021-11-14 10:24 | DSE_ITS ---
Date of service: 11/14/21 Time of Service: 09:24 DS: Diagnosis Discharge Diagnosis (1) Degenerative joint disease of right hip: Status: Acute Discharge Plan Disposition Patient Disposition: HOME W/HOME HEALTH SERVICE Condition: Stable Discharge Details Reason For Visit: right DOMI Admit Date/Time: 11/13/21 14:19 Admit Provider: Darshan Jerez Attending Provider: Darshan Jerez Primary Care Provider: Sheela Storey [facility] Course Hospital Course: Patient was admitted to the medical/surgical floor following the procedure. The surgery was tolerated well without any notable medical, surgical, or anesthetic complications. Mobilization began postoperatively. She was voiding spontaneously. Vitals were stable. Physical therapy worked with the patient and was cleared for discharge home. No acute medical issues. Pain was controlled on oral regimen. Home Meds and New Rx's Prescriptions: New acetaminophen 500 mg capsule 1,000 mg PO Q8H PRN PRNQty: 90 0RF celecoxib [Celebrex] 200 mg capsule 200 mg PO BID Qty: 60 0RF tramadol 50 mg tablet 50 mg PO Q4H PRNQty: 30 0RF Continued lysine [L-Lysine] 500 mg tablet 500 mg PO PRN aspirin-dipyridamole 25-200 mg capsule, ER multiphase 12 hr 1 cap PO BID ipratropium bromide 21 mcg (0.03 %) spray,non-aerosol 2 spray intranasal TID PRN Rx Instructions: administer into each nostril tramadol 50 mg tablet 50 mg PO TID PRN vitamin B complex Tablet 1 tab PO DAILY Caltrate + D3 Plus Minerals 300 mg-800 unit -25 mg-0.5 mg tablet 1 tab PO DAILY pseudoephedrine-guaifenesin [Mucinex D] 60-600 mg tablet extended release 12 hr 1 tab PO Q12H PRN diltiazem HCl [Cartia XT] 120 mg capsule,extended release 24hr 120 mg PO DAILY hydrochlorothiazide 25 mg tablet 25 mg PO DAILY atorvastatin 10 mg tablet 10 mg PO DAILY ascorbic acid (vitamin C) 500 mg capsule 500 mg PO DAILY citalopram 10 mg tablet 10 mg PO DAILY Qty: 90 0RF Label Comments: Pt's daughter states she is no longer taking.HE gabapentin 100 mg capsule 100 mg PO BID trazodone 50 mg tablet 25 - 50 mg PO .QHS Label Comments: Pt. states she takes half to 3/4 of a tab at HS. Calcet Petites 200 mg calcium -250 unit tablet 3 tab PO DAILY famotidine 20 MG tablet 20 mg PO DAILY PRN valsartan 160 mg Tablet 160 mg PO DAILY docusate sodium [Colace] 100 mg Capsule 100 mg PO TID PRN PRNQty: 30 0RF aspirin-dipyridamole 25-200 mg Capsule, Er Multiphase 12 Hr 1 cap PO BID Discharge Instructions Additional Instructions: Total Hip Discharge Instructions Activity: The most important activity is to walk. You should try to take short walks a few times a day. You have no restrictions on movement or positioning, but do not try to force what you do. You will find some stiffness and weakness with hip flexion (lifting your knee). Do not try to strengthen this too early, continue to practice walking and stairs and this will come. - Outpatient physical therapy can be helpful to help return you to a normal gait and improve your flexibility and strength. This can start around 2 weeks. For some patients, it?s not necessary. Usually this is determined at the time of discharge or at the first post-operative visit. - You should wear the GORAN hose on both legs for 2 weeks. Dressing: Keep the surgical dressing in place for at least one week. After the first week it may be removed and replace with light gauze and tape or nothing. It may get wet after 3 days but avoid soaking the dressing. If it gets wet, just lightly pat dry. It is important to always keep some gauze between skin folds, especially when you are sitting. Spend some time with the wound exposed when you are lying flat as the incision does wrinkle onto itself. Medications: - You should take Tylenol and an anti-inflammatory Celebrex as your primary pain control medications. If the Celebrex is too expensive or not covered, please call the office for another alternative (Advil/Ibuprofen or Naproxen/Aleve). - Continue with your previously prescribed stronger pain medication Tramadol for breakthrough pain, take as needed as prescribed. - You have also been prescribed a stomach acid reduction agent Pantoprozole to help reduce stomach acid and reflux. - You will be continuing your previously prescribed Aggrenox for DVT prevention unless instructed otherwise. - If you have constipation you should take Colace or Miralax (both over-the-co unter). It takes most people 3-4 days to have a bowel movement. Follow-up: 2 weeks If you have any acute concerns or questions, please do not hesitate to contact the office at [phone]. You may contact Dr. Jerez with any questions after hours through the hospital at [phone] or on his cell phone at [phone]. 1. Encounter Date and Reason I certify that Randi Oswald was seen by Darshan Jerez MD on 11/14/21 and that I had a [id number] encounter with this patient that meets the physician face to face encounter requirements. 2. Clinical Findings Supporting Skilled Need and Homebound Status I certify that home health services are medically necessary, include either intermittent senior care and/or physical/speech therapy, and that this patient is homebound in that absences from the home require considerable and taxing effort and are infrequent or of short duration, or are attributable to the need to receive medical care. [X] (a) Attached documentation from encounter provides clinical findings supporting skilled need and homebound status (including what assistance patient requires to leave the home). The encounter with the patient was in whole, or in part, for the following medical condition, which is the primary reason for home health care: right DOMI [facility]: Physical Therapy: Randi would benefit from OT/PT as she recovers from a right hip replacement after femoral neck fracture malunion. She has notable weakness and gait dysfunction which would benefit from therapy to regain strength and return her to an independent function. She has no restrictions about the right hip. Speech Therapy: Homebound: Randi is unable to leave her home unassisted due to ambulatory dysfunction and weakness. 3. Certification and Authentication I certify that I composed the above information based on my clinical judgement relating to this patient's medical condition and, if applicable, clinical findings communicated to me by the NPP or inpatient physician who performed the Home Health Referral. All further orders will be obtained through Dr. Darshan Jerez Referrals: Darshan Jerez MD [ [facility] STAFF PHYSICIAN] - Activity:: Activity as Tolerated Equipment/Supplies:: Walker Diet:: As Tolerated Discharge Orders Discharge Orders: Discharge Order (Routine); Ordered 11/14/21 Ordered By: Darshan Jerez DS: Summary Time Spent with Patient providing and/or coordinating discharge services: Less than 30 minutes Status at Discharge Functional status at discharge: uses cane/walker Overall status at discharge: patient is progressing back to baseline Mental Status: mental status grossly normal Speech and Movement: speech and movement normal Mood: congruent mood Affect: normal affect Exam Narrative Exam Narrative: Sitting up in hospital. RLE dressing c/d/i. No pain with gentle ER/IR of the right hip. +ADF/APF/EHL/FHL. SILT DP/SP/Tib. Psych Mental Status: mental status grossly normal Speech and Movement: speech and movement normal Mood: congruent mood Affect: normal affect DS: Data Vitals/I&O Vitals and I&O: Vital Signs Temperature 37.1 C 11/14/21 07:33 Temperature Source Tympanic 11/14/21 07:33 Pulse 66 11/14/21 07:33 Pulse Rhythm Regular 11/14/21 07:39 Respiratory Rate 17 11/14/21 07:33 Respiratory Effort Non-Labored 11/14/21 07:39 Respiratory Depth Normal 11/14/21 07:39 Respiratory Pattern Normal 11/14/21 07:39 Blood Pressure 111/62 11/14/21 07:33 Pulse Oximetry 95 11/14/21 07:33 Respiratory End-tidal CO2 33 11/13/21 14:48 Oxygen Delivery Method Room Air 11/14/21 07:33 Oxygen Flow Rate 0 11/14/21 07:33 Pain Level 4 11/14/21 07:33 Comment 11/13/21 19:30 Intake & Output 11/13/21 11/13/21 11/14/21 11:59 23:59 11:59 Intake Total 110 / 1400 1290 / 1400 50 / 50 Output Total 100 / 100 400 / 400 Balance 1299 1290 / 1300 -350 / -350 Weight 57.1 kg 56.8 kg Intake: IV 110 / 1160 1050 / 1160 50 / 50 Oral 240 / 240 Output: Urine 400 / 400 Estimated Blood Loss 100 / 100 Other: Urine Color Yellow Yellow Urine Appearance Cloudy Clear Urine Odor Normal Comment Could not measure void Emesis Description None Voiding Methods Bedside Commode Bedside Commode [facility] All Active Problems Headache (Acute) Dizzy (Acute) Vertigo (Acute) Heart murmur, systolic (Acute) Dysphagia (Acute) PVD (peripheral vascular disease) (Chronic) COPD (chronic obstructive pulmonary disease) (Chronic) Balance problems (Acute) Weakness (Acute) Osteopenia (Acute) Chronic back pain (Acute) Anxiety (Chronic) Hypertension (Acute) HLD (hyperlipidemia) (Acute) CVA (cerebral vascular accident) (Chronic) 2006 Heart palpitations (Acute) Iron deficiency anemia (Acute) Anticoagulation adequate with anticoagulant therapy (Acute) Right carotid bruit (Acute) Right shoulder pain (Acute) Former smoker (Acute) Sensory hearing loss (Acute) Abnormal auditory perception (Acute) Cataract (Chronic) Pseudophakia (Acute) Gait abnormality (Acute) Chronic daily headache (Acute) S/P cataract surgery (Acute) History of cerebrovascular accident (CVA) due to ischemia (Acute) Displaced fracture of right femoral neck (Acute 07/01/19) S/P cannulated screw fixation: 07/02/2019 Anemia of chronic disease (Acute) Anemia due to blood loss (Acute) Painful orthopaedic hardware (Acute) RIGHT hip S/P removal 09/08/2020 Trochanteric bursitis, right hip (Acute) Abdominal wall hernia (Acute) Iron refractory iron deficiency anemia (Acute) Degenerative joint disease of right hip (Acute) Preoperative cardiovascular examination (Acute) Abdominal wall hernia (Acute) S/P right inguinal herniorrhaphy (Acute) Hernia of anterior abdominal wall (Acute) right sided spigelian hernia- open repair w/ mesh & incidental right direct hernia repair w/ mesh 03/2021 Surgical History History of cataract surgery History of tonsillectomy S/P matrixectomy of toe of right foot Trigger finger, left Family History Mother Heart disease Social History Smoking/Tobacco Use Status: Former Tobacco Use Quit Date: 06/30/74 Smoking risk assessment performed?: Yes Alcohol Intake: never Drug use: Never Substance use type: does not use Household members: none Number of Children: 2 current occupation: Retired Sales/Clerical/Caregiver Current gender identity: female What is your relationship status?: Panel score (0-1 are the most socially isolated patients): 0 Do you feel safe at home: Yes Do you feel safe in your relationship?: Yes
--- NOTE | 2021-11-14 14:58 | CHAPLAIN ---
I visited with Randi this morning. She was expecting to be discharged this afternoon, and was. Randi is very involved with an independent pentecostalism and Christianity school in the [facility]. She has a conservative approach to the Bible and believes that men should be the leaders, and women support them. She is very pleasant and easily engages in conversation.
--- NOTE | 2021-11-14 15:07 | INITIAL_ITS ---
- If Service Date Differs Date of service: 11/14/21 Time of Service: 15:07 Care Management Initial Assess REASON FOR HOSPITALIZATION:: right DOMI PAST MEDICAL HISTORY/PAST SURGICAL HISTORY:: Medical History: Anemia of chronic disease, Anxiety, Balance problems,. Chronic back pain, COPD (chronic obstructive pulmonary disease). CVA (cerebral vascular accident) - 2006, Degenerative joint disease of right hip, Dizzy, Dysphagia, Headache, Heart murmur, systolic, Heart palpitations, History of cerebrovascular accident (CVA) due to ischemia,. HLD (hyperlipidemia), Hypertension, Osteopenia, Preoperative cardiovascular examination, PVD (peripheral vascular disease), Sensory hearing loss, Vertigo, and Weakness. Surgical History: Displaced fracture of right femoral neck (07/01/19) - S/P cannulated screw fixation: 07/02/2019, Painful orthopaedic hardware - RIGHT hip - S/P removal 09/08/2020, S/P matrixectomy of toe of right foot, and Trigger finger, left. PREVIOUS FUNCTIONAL STATUS/SOCIAL/FAMILY SUPPORTS:: Randi is a 81 year old woman who lives alone in [place]. Her son, Zaki, and his family live next door to her. Randi proudly states she has 7 children, 13 grand children, and 6 great grand children. 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 She now occupies her time with painting, spending time with family, and doing office work for her bahai. She reports her children and a bahai full of people are her supports. CURRENT FUNCTIONAL STATUS:: Randi was sitting up in a chair when CM met with her. She stated that she is being discharged today, per MD. She reported that she felt well taken care of, and she is happy to have her care at [facility]. She reported that she would be agreeable to services, and she has had them before. She stated that her daughter would drive her home. CM will continue to follow. ADVANCE DIRECTIVES:: None on file. Has patient been provided with info about the portal/API?: Yes Did the patient sign up for the portal?: No CODE STATUS:: Full Code INSURANCE COVERAGE / FINANCIAL ISSUES:: [facility] [employer] [place] and Medicaid. CURRENT HOME/COMMUNITY SERVICES/EQUIPMENT:: Randi has no current home or community services. She owns a cane, walker, rollator, commode, and a shower chair. PRIMARY CARE PHYSICIAN:: KIMBERLY Cesar ([facility]). POTENTIAL DISCHARGE NEEDS:: Follow up appointments with PCP and new services. PATIENT/FAMILY EDUCATION NEEDS:: Review discharge instructions regarding medication and activity level; discussion of Ask Me Three and self-care. ANTICIPATED BARRIERS TO DISCHARGE:: No anticipated barriers at this time. TRANSPORTATION:: Via private vehicle with family. PLAN:: Randi will be discharged home with new Home Health nursing, PT, and OT services when medically cleared by provider. She will follow up with her PCP, surgeon, and discharge plan of care as instructed. Her daughter will drive her home via private vehicle when ready. CM will continue to follow.
--- NOTE | 2021-11-14 15:21 | PDOC.CMDIS ---
- If Service Date Differs Date of service: 11/14/21 Time of Service: 15:21 LACE Index Scoring Tool - Questions: Length of Stay (in days): 1 Acuity (Admit via E.D.?): No Comorbidities: Cerebrovascular Disease, Chronic Pulmonary Disease E.D. Visits: 0 - Answers: Total Score: 4 Risk of Readmission: Low Risk Care Management Discharge Reason for Hospitalization: right DOMI Discharge Plan: Randi returned home with new orders for HH PT, OT. Her daughter will drive her home via private vehicle. She will follow up with her PCP and discharge plan of care. She is happy to be going home. Patient/Family Education Needs: Review discharge instructions regarding activity levels and medications, discussion of self care needs including ask me three. Services Needed at Discharge: Home Health Care Services (HH PT)
--- NOTE | 2021-11-14 19:00 | INDS_ITS ---
PT Notes Visit Reasons: Right Femoral Neck Malunion Physical Therapy Inpatient Discharge Summary Date: 11/13/2021 Date of service: 11/13/2021 through 11/14/2021 This is a clinical summary of care provided for the duration of dates listed above. No charge was made in the completion of this documentation. Referring Doctor: MALLORY Mckeon PT Orders: PT CONSULT: S/p Ortho surgery Precautions: Fall. Standard.? WBAT on right LE with AD. Patient Profile/Admitting Diagnosis:? Randi is a 81-year-old female with degenerative joint disease of the right hip and is status post anterior right total hip arthroplasty on postoperative day 0. PMHX: Medical History? Anemia of chronic disease Anxiety Balance problems Chronic back pain COPD (chronic obstructive pulmonary disease) CVA (cerebral vascular accident) 2006 Degenerative joint disease of right hip Dizzy Dysphagia Headache Heart murmur, systolic Heart palpitations History of cerebrovascular accident (CVA) due to ischemia HLD (hyperlipidemia) Hypertension Osteopenia Preoperative cardiovascular examination PVD (peripheral vascular disease) Sensory hearing loss Vertigo Weakness Surgical History? Displaced fracture of right femoral neck (07/01/19) S/P cannulated screw fixation: 07/02/2019 Painful orthopaedic hardware RIGHT hip S/P removal 09/08/2020 S/P matrixectomy of toe of right foot Trigger finger, left Social History/Home Situation: Lives alone in an apartment.? Son and son's family live close by and are very good support.? Independent with all mobility ADLs using her single-point cane.? No longer drives. Equipment Owned/DME: [facility] Subjective: NT. See most recent CROP SETTING OUT MACHINE OPERATOR notes. Objective: General Observation: NT. See most recent CROP SETTING OUT MACHINE OPERATOR notes. Mental Status: NT. See most recent CROP SETTING OUT MACHINE OPERATOR notes. Pain: NT. See most recent CROP SETTING OUT MACHINE OPERATOR notes. ROM: Right Lower Extremity: Hip flexion WFL. Hip abduction WFL. Knee flexion WFL. Ankle dorsiflexion to neutral only.. Ankle plantarflexion WFL. Left Lower Extremity: Hip flexion WFL. Hip abduction WFL. Knee flexion WFL. Ankle dorsiflexion WFL. Ankle plantarflexion WFL. Strength: Right Lower Extremity: Hip flexors 4-/5. Hip abductors 4-/5. Knee flexors 4/5. Knee extensors 4/5. Ankle dorsiflexors 3-/5. Ankle plantarflexors 4-/5. Left Lower Extremity: Hip flexors 5/5. Hip abductors 5/5. Knee flexors 5/5. Knee extensors 5/5. Ankle dorsiflexors 5/5. Ankle plantarflexors 5/5. Bed Mobility/Transfers: Supine to sit independent Sit to stand independent Stand to sit supervision Bed to reclining chair supervision Gait: Instructed patient with level surface ambulation of 200 feet requiring standby assist using front-wheeled walker. No LOB.? Denies headache, chest pain, and dizziness.? Minimal verbal cues given for walker management and overall safety. Balance: Static Sitting: Normal Dynamic Sitting: Good Static Standing: Fair Dynamic Standing: Fair ASSESSMENT: Randi is a 81-year-old female with degenerative joint disease of the right hip and is status post anterior right total hip arthroplasty on postoperative day 0.? Randi requires the use of a front-wheeled walker to increase independence, reduce fall risk and minimize pain level.? She presents with clinical signs and symptoms consistent with current/admitting diagnoses that have resulted to mobility limitations, gait instability, generalized weakness, and overall ADL decline as demonstrated by the following impairment level findings: 1.? Decreased strength to right LE? major muscle groups 2.? Impaired sitting/standing balance 3.? Impaired activity tolerance 4.? Pain in right abdominal area and right anterior hip Impairments are contributing to the following functional limitations: 1.? Decline in transfer skills 2.? Difficulty with ambulation without assistive device and physical assistance 3.? Increased completion time for mobility ADL performance 4.? Increased risk for falls 5.? Difficulty with managing steps alone safely Goals: Goals X1 week 1. Supine-Sit independent MET 2. Sit-Supine independent MET 3. Sit-Stand independent MET 4. Stand-Sit independent with front-wheeled walker MET 5. Bed-Chair independent with front-wheeled walker NOT MET 6. Chair-Bed independent with front-wheeled walker NOT MET 7. Independent gait on level surface with use of front-wheeled walker for at least 100 feet without report of pain nor dyspnea NOT MET 8. Good static and dynamic standing balance/tolerance NOT MET TREATMENT CODE/TIME: ID Thank you for the opportunity to participate in the care of this patient. Jennifer Galicia PT, DPT, CLT [facility] [place], [place]
== END 2021-11-14 13:38 | disposition home health service (06) ==
LOC: MS 11-14 09:06 → SUR 11-14 09:06
PROVIDERS: Admitting Provider Student in an Organized Health Care Education/Training Program; PCP Nurse Practitioner Family; Visit Provider Student in an Organized Health Care Education/Training Program
PROC: (CPT 27130; principal; 2021-11-13 11:45)
DX: M16.11 Unilateral primary osteoarthritis, right hip (principal); J44.9 Chronic obstructive pulmonary disease, unspecified; I73.9 Peripheral vascular disease, unspecified; I10 Essential (primary) hypertension; E78.5 Hyperlipidemia, unspecified; Z86.73 Personal history of transient ischemic attack (TIA), and cerebral infarction without residual deficits; D50.9 Iron deficiency anemia, unspecified
CPT/HCPCS: 27130; 20985; 96365; 96376; 97162; 97530; 73501; G0378; J0690; J1100; J2370; J2405; J3010; J8540

== ENCOUNTER 2021-11-29 11:03 | Outpatient (CLI) | payer OTHER, MEDICAID, SELFPAY ==
--- NOTE | 2021-11-29 09:59 | DI.RAD_ITS ---
Exam(s) XR HIP RT COMPLETE AP PELVIS EXAM: XR HIP RT COMPLETE AP PELVIS CLINICAL HISTORY: 1ST POST OP R DOMI. TECHNIQUE: 2D digital imaging was performed. COMPARISON: CR XR HIP RT COMPLETE AP PELVIS from 02/12/2021 FINDINGS: Two views There is stable position alignment of the components of the recently placed right hip arthroplasty. No fracture or loosening evident. IMPRESSION: DATA REPOSITORY: RADIATION DOSE DELIVERED:
== END 2021-11-29 11:04 | disposition home or self-care (01) ==
LOC: DIORS 11:03
PROVIDERS: PCP Nurse Practitioner Family; Referring Provider Nurse Practitioner Family; Visit Provider Student in an Organized Health Care Education/Training Program
DX: Z96.641 Presence of right artificial hip joint (principal); Z47.1 Aftercare following joint replacement surgery
CPT/HCPCS: 73502

== ENCOUNTER → 2022-01-03 11:21 | Outpatient (BNVA) | payer OTHER, MEDICAID, SELFPAY | PROVIDERS: PCP Nurse Practitioner Family; Referring Provider Nurse Practitioner Family; Visit Provider Student in an Organized Health Care Education/Training Program | DX: Z47.1 Aftercare following joint replacement surgery (principal); Z96.641 Presence of right artificial hip joint ==

== ENCOUNTER 2022-03-25 09:45 | Outpatient (CLI) | payer OTHER, MEDICAID, SELFPAY ==
--- NOTE | 2022-03-25 09:00 | DI.RAD_ITS ---
Exam(s) XR HIP RT COMPLETE AP PELVIS EXAM: XR HIP RT COMPLETE AP PELVIS INDICATION: pain. COMPARISON: CR XR HIP RT COMPLETE AP PELVIS from 11/29/2021 TECHNIQUE: 2D digital imaging was performed. Three views. FINDINGS: There has been no change in the alignment of the right hip prosthesis or appearance of the surroundin g bone. The degenerative changes at the SI joints and pubic symphysis. There are mild degenerative changes of the left hip. The degenerative changes also noted in the lower lumbar spine. The sacrum is mostly obscured by overlying bowel gas and stool. Surgical clips are again noted in the right low er quadrant. IMPRESSION: Stable appearance of right hip prosthesis. DATA REPOSITORY: RADIATION DOSE DELIVERED:
== END 2022-03-25 09:46 | disposition home or self-care (01) ==
LOC: DIORS 09:45
PROVIDERS: PCP Nurse Practitioner Family; Referring Provider Nurse Practitioner Family; Visit Provider Physician Assistant Surgical
DX: Z96.641 Presence of right artificial hip joint (principal); M70.61 Trochanteric bursitis, right hip
CPT/HCPCS: 20610; 73502; J1040

== ENCOUNTER 2022-05-14 14:50 | Outpatient (REF) | payer OTHER, MEDICAID, SELFPAY ==
[2022-05-14 21:36] LABS: Anion Gap 6.7 mmol/L (3-11); BUN 28 mg/dL (7-18); CO2 32.3 mmol/L (21.0-32.0); CREATININE 1.2 mg/dL (0.55-1.02); Chloride 104 mmol/L (98-107); Estimated GFR 46.05 (mL/min/1.73m2); Glucose 79 mg/dL (74-106); Potassium 3.5 mmol/L (3.5-5.1); Sodium 143 mmol/L (136-145)
== END 2022-05-14 14:51 | disposition home or self-care (01) ==
LOC: NCHCN 14:50
PROVIDERS: PCP Nurse Practitioner Family; Visit Provider Nurse Practitioner Family
DX: I10 Essential (primary) hypertension (principal); E78.5 Hyperlipidemia, unspecified; R01.1 Cardiac murmur, unspecified; K59.00 Constipation, unspecified
CPT/HCPCS: 80048

== ENCOUNTER → 2022-05-20 08:14 | Outpatient (BNVA) | payer OTHER, MEDICAID, SELFPAY | PROVIDERS: PCP Nurse Practitioner Family; Referring Provider Nurse Practitioner Family; Visit Provider Student in an Organized Health Care Education/Training Program | DX: M70.61 Trochanteric bursitis, right hip (principal); Z96.641 Presence of right artificial hip joint | CPT/HCPCS: 99213 ==

== ENCOUNTER 2022-11-04 14:07 | Outpatient (REF) | payer OTHER, MEDICAID, SELFPAY ==
[2022-11-04 15:28] LABS: Anion Gap 4.6 mmol/L (3-11); BUN 28 mg/dL (7-18); CO2 34.4 mmol/L (21.0-32.0); CREATININE 1.1 mg/dL (0.55-1.02); Calcium 8.9 mg/dL (8.5-10.1); Chloride 105 mmol/L (98-107); Glucose 110 mg/dL (74-106); Magnesium 1.7 mg/dL (1.8-2.4); Potassium 3.5 mmol/L (3.5-5.1); Sodium 144 mmol/L (136-145); Vitamin B12 754 pg/mL (193-986)
[2022-11-04 16:33] LABS: Vitamin D 25 Total 40.4 ng/mL (30-100)
== END 2022-11-04 14:08 | disposition home or self-care (01) ==
LOC: NCHCN 14:07
PROVIDERS: PCP Nurse Practitioner Family; Visit Provider Nurse Practitioner Family
DX: N18.31 Chronic kidney disease, stage 3a (principal); F03.90 Unspecified dementia, unspecified severity, without behavioral disturbance, psychotic disturbance, mood disturbance, and anxiety; K59.00 Constipation, unspecified; D64.9 Anemia, unspecified; R13.10 Dysphagia, unspecified; I10 Essential (primary) hypertension; M85.88 Other specified disorders of bone density and structure, other site; J44.9 Chronic obstructive pulmonary disease, unspecified
CPT/HCPCS: 80048; 82306; 82607; 83735

== ENCOUNTER 2023-06-09 15:45 | Outpatient (REF) | payer OTHER, MEDICAID, SELFPAY ==
[2023-06-09 21:01] LABS: Abs Immature Grans 0.01 10^3/uL (0.0-0.06); Absolute Basophil Count 0.03 10^3/uL (0.0-0.2); Absolute Eosinophil Count 0.06 10^3/uL (0.0-0.7); Absolute Lymphocyte Count 0.89 10^3/uL (1.2-3.4); Absolute Monocyte Count 0.37 10^3/uL (0.1-0.8); Basophils % 0.7; Eosinophils % 1.3; HCT 37.1 % (36.0-46.0); HGB 12.2 g/dL (11.2-15.7); Immature Grans % 0.2; Lymphocytes % 19.5; MCH 30.7 pg (27.0-33.0); MCHC 32.9 % (32.0-36.0); MCV 94 fL (80-95); MPV 10.3 fL (8.0-11.0); Monocytes % 8.1; Neutrophils % 70.2; Platelet Count 219 10^3/uL (130-400); RBC 3.97 10^6/uL (3.93-5.22); RDW 11.9 % (11.7-14.6); RDW-SD 40.7 fL; WBC 4.56 10^3/uL (4.4-10.8)
[2023-06-09 21:06] LABS: Anion Gap 7.3 mmol/L (3-11); BUN 27 mg/dL (7-18); CO2 33.7 mmol/L (21.0-32.0); CREATININE 1.1 mg/dL (0.55-1.02); Calcium 9.8 mg/dL (8.5-10.1); Chloride 102 mmol/L (98-107); Glucose 123 mg/dL (74-106); Potassium 3.6 mmol/L (3.5-5.1); Sodium 143 mmol/L (136-145)
== END 2023-06-09 15:46 | disposition home or self-care (01) ==
LOC: NCHCN 15:45
PROVIDERS: PCP Nurse Practitioner Family; Visit Provider Nurse Practitioner Family
DX: I10 Essential (primary) hypertension (principal); E78.2 Mixed hyperlipidemia; N18.31 Chronic kidney disease, stage 3a
CPT/HCPCS: 80048; 85025

== ENCOUNTER → 2023-08-26 14:13 | Outpatient (BNVA) | payer OTHER, MEDICAID, SELFPAY | PROVIDERS: PCP Nurse Practitioner Family; Referring Provider Nurse Practitioner Family; Visit Provider Nurse Practitioner Adult Health | DX: R41.3 Other amnesia (principal) | CPT/HCPCS: 99215; 99417 ==

== ENCOUNTER 2023-09-02 04:44 | Outpatient (CLI) | payer OTHER, MEDICAID, SELFPAY ==
[2023-09-02 12:44] LABS: TSH (W/Ref FT4) 2.24 uIU/mL (0.36-3.74)
== END 2023-09-02 04:45 | disposition home or self-care (01) ==
LOC: LBO 04:44
PROVIDERS: PCP Nurse Practitioner Family; Visit Provider Nurse Practitioner Adult Health
DX: G31.84 Mild cognitive impairment of uncertain or unknown etiology (principal)
CPT/HCPCS: 36415; 84443

== ENCOUNTER → 2023-11-06 14:28 | Outpatient (BNVA) | payer OTHER, MEDICAID, SELFPAY | PROVIDERS: PCP Nurse Practitioner Family; Referring Provider Nurse Practitioner Family; Visit Provider Nurse Practitioner Adult Health | DX: G30.9 Alzheimer's disease, unspecified (principal); F01.50 Vascular dementia, unspecified severity, without behavioral disturbance, psychotic disturbance, mood disturbance, and anxiety; F02.80 Dementia in other diseases classified elsewhere, unspecified severity, without behavioral disturbance, psychotic disturbance, mood disturbance, and anxiety | CPT/HCPCS: 99215 ==

== ENCOUNTER → 2023-12-01 11:58 | Outpatient (BNVA) | payer OTHER, MEDICAID, SELFPAY | PROVIDERS: PCP Nurse Practitioner Family; Referring Provider Nurse Practitioner Family; Visit Provider Surgery | DX: K43.9 Ventral hernia without obstruction or gangrene (principal); D50.9 Iron deficiency anemia, unspecified; R41.3 Other amnesia | CPT/HCPCS: 99213 ==

== ENCOUNTER → 2023-12-24 00:36 | Outpatient (CLI) | payer OTHER, MEDICAID, SELFPAY ==
[2023-12-24] MEDS: Barium Sulfate 2% W/V-Creamy Vanilla Smoothie 450 ML BTL PO ×2 (09:23→09:24)
== END ==
PROVIDERS: PCP Nurse Practitioner Family; Visit Provider Surgery
DX: R10.31 Right lower quadrant pain (principal); Z79.01 Long term (current) use of anticoagulants; K43.9 Ventral hernia without obstruction or gangrene; D64.9 Anemia, unspecified; D50.9 Iron deficiency anemia, unspecified; R41.3 Other amnesia
CPT/HCPCS: 82565

== ENCOUNTER 2024-01-04 17:17 | Emergency (ER) | payer OTHER, MEDICAID, SELFPAY ==
[2024-01-04 17:23] VITALS: BP 168/54; PULSE 70; RESP 18; TEMP 36.9; O2SAT 95
--- NOTE | 2024-01-04 17:55 | W.ED.GENAD ---
Discharge Plan Disposition Patient Disposition: Home Condition: Stable Discharge Details Clinical Impression: Minor head injury Primary Care Provider: Sheela Storey ED Provider: Hugo Thayer Home Meds and New Rx's Prescriptions: Continued aspirin-dipyridamole 25-200 mg capsule, ER multiphase 12 hr 1 cap PO BID ipratropium bromide 21 mcg (0.03 %) spray,non-aerosol 2 spray intranasal TID PRN Rx Instructions: administer into each nostril vitamin B complex Tablet 1 tab PO DAILY Caltrate-D3 Plus Minerals 300 mg-800 unit -25 mg-0.5 mg tablet 1 tab PO DAILY hydrochlorothiazide 25 mg tablet 25 mg PO DAILY tramadol 25 mg tablet 25 mg PO Q6H PRN pseudoephedrine-guaifenesin [Mucinex D] 60-600 mg tablet extended release 12 hr 1 tab PO Q12H PRN memantine 5 mg tablet See Rx Instructions PO .COMPLEX Qty: 60 1RF Rx Instructions: Week 1: 5 mg pm Week 2: 5 mg BID Week 3: 5 mg am and 10 mg pm Week 4++: 10 mg BID diltiazem HCl [Cartia XT] 120 mg capsule,extended release 24hr 120 mg PO DAILY atorvastatin 10 mg tablet 10 mg PO DAILY ascorbic acid (vitamin C) 500 mg capsule 500 mg PO DAILY citalopram 10 mg tablet 10 mg PO DAILY Qty: 90 0RF Patient Comments: Pt's daughter states she is no longer taking.HE fluticasone propionate [Allergy Relief (fluticasone)] 50 mcg/actuation spray,suspension 1 spray intranasal DAILY Rx Instructions: administer into each nostril magnesium oxide 400 mg (241.3 mg magnesium) tablet 400 mg PO DAILY sennosides [Natural Senna Laxative] 8.6 mg tablet 8.6 mg PO DAILY docusate sodium [Colace] 100 mg capsule 100 mg PO DAILY trazodone 50 mg tablet 25 - 50 mg PO .QHS Patient Comments: Pt. states she takes half to 3/4 of a tab at HS. Calcet Petites 200 mg calcium -250 unit tablet 3 tab PO DAILY famotidine 20 MG tablet 20 mg PO DAILY PRN valsartan 160 mg Tablet 160 mg PO DAILY docusate sodium [Colace] 100 mg Capsule 100 mg PO TID PRN PRNQty: 30 0RF acetaminophen 500 mg capsule 1,000 mg PO Q8H PRN PRNQty: 90 0RF Discharge Instructions Instructions: Minor Head Injury, Adult ED Additional Instructions: You were seen in the emergency department for your moderate fall with minor head injury, you state you are on a blood thinner but you cannot recall which one, we do not have record of this but stated it is likely apixaban. Please double check and have your medical record updated. Your CT head is negative for any intracranial hemorrhage or other abnormality, your blood work is benign. Please return for any head strike on blood thinners. Please return for any worsening mental status, increasing nausea, repetitive questioning or other emergent concerns. Referrals: Sheela Storey [Primary Care Provider] - [facility] General Date/Time Provider Initiated Documentation: 01/04/24 17:55. HPI Narrative: 83 year-old female presents to ED today by POV/ambulating with a chief complaint of minor ground-level fall at [employer] with a minor head strike, states she is on thinners but cannot recall which 1 it is not in our records, her daughter has it written on paper as agronox(sp?) with onset around 1400. Quality described as no headache, no real pain, no radiation to nausea/vomiting, repetitive questioning, visual changes, scalp hematoma, neck pain, LOC. Severity is described as 0/10. Palliating factors include nothing specific attempted. Provoking factors include nothing specific. Patient is subjectively anticoagulated. Related Data Home Medications Medication Instructions Recorded Confirmed famotidine 20 mg tablet 20 mg PO DAILY PRN 02/06/17 01/04/24 ascorbic acid (vitamin C) 500 mg 500 mg PO DAILY 12/03/18 01/04/24 capsule atorvastatin 10 mg tablet 10 mg PO DAILY 12/03/18 01/04/24 diltiazem HCl 120 mg 120 mg PO DAILY 12/03/18 01/04/24 capsule,extended release 24 hr (Cartia XT) trazodone 50 mg tablet 25 - 50 mg PO .QHS 06/09/19 01/04/24 valsartan 160 mg tablet 160 mg PO DAILY 07/01/19 01/04/24 docusate sodium 100 mg capsule 100 mg PO TID PRN PRN #30 caps 07/05/19 01/04/24 (Colace) calcium carb and lactate 200 3 tab PO DAILY 08/02/20 01/04/24 mg-vitamin D3 6.25 mcg (250 unit) tablet (Calcet Petites) citalopram 10 mg tablet 10 mg PO DAILY #90 tabs 08/31/20 01/04/24 pseudoephedrine-guaifenesin ER 60 1 tab PO Q12H PRN 03/19/21 01/04/24 mg-600 mg tablet,extend release 12hr (Mucinex D) aspirin 25 mg-dipyridamole 200 mg 1 cap PO BID 10/29/21 01/04/24 capsule,ext.release 12 hr multiphase calcium carb 300 mg-D3 20 mcg-mag 1 tab PO DAILY 10/29/21 01/04/24 ox 25 mg-picture copyist 0.5 [id number] tablet (Caltrate-D3 Plus Minerals) ipratropium bromide 21 mcg (0.03 2 spray intranasal TID PRN 10/29/21 01/04/24 %) nasal spray vitamin B complex 1 tab PO DAILY 10/29/21 01/04/24 acetaminophen 500 mg capsule 1,000 mg (2 x 500 mg) PO Q8H PRN 11/13/21 01/04/24 PRN #90 caps docusate sodium 100 mg capsule 100 mg PO DAILY 06/12/23 01/04/24 (Colace) fluticasone propionate 50 1 spray intranasal DAILY 06/12/23 01/04/24 mcg/actuation nasal spray,suspension (Allergy Relief (fluticasone)) magnesium oxide 400 mg (241.3 mg 400 mg PO DAILY 06/12/23 01/04/24 magnesium) tablet sennosides 8.6 mg tablet (Natural 8.6 mg PO DAILY 06/12/23 01/04/24 Senna Laxative) hydrochlorothiazide 25 mg tablet 25 mg PO DAILY 08/26/23 01/04/24 tramadol 25 mg tablet 25 mg PO Q6H PRN 08/26/23 01/04/24 memantine 5 mg tablet See Rx Instructions PO .COMPLEX 11/06/23 01/04/24 #60 tabs Previous Rx's Medication Instructions Recorded docusate sodium 100 mg capsule 100 mg PO TID PRN PRN #30 caps 07/05/19 (Colace) citalopram 10 mg tablet 10 mg PO DAILY #90 tabs 08/31/20 acetaminophen 500 mg capsule 1,000 mg (2 x 500 mg) PO Q8H PRN 11/13/21 PRN #90 caps memantine 5 mg tablet See Rx Instructions PO .COMPLEX 11/06/23 #60 tabs Allergies Allergy/AdvReac Type Severity Reaction Status Date / Time atenolol Allergy Unknown Other (See Verified 01/04/24 17:29 Comment) celecoxib [From Celebrex] Allergy Unknown Other (See Verified 01/04/24 17:29 Comment) esomeprazole [From Nexium] AdvReac Unknown Other (See Verified 01/04/24 17:29 Comment) General Stated Complaint: HeadInjury DIMITRIOS: 3 Review of Systems All systems reviewed & are unremarkable except as noted in HPI and below Exam Narrative Exam Narrative: GENERAL APPEARANCE: Well-nourished, non-toxic, awake and alert, atraumatic, no acute distress. SKIN: Warm, pink, dry, intact, without rashes/lesions/ulcerations. HEAD: Normocephalic, atraumatic- no Santacruz's sign, no periorbital ecchymosis, normal hair distribution for gender/age. EYES: Pupils PERRLA, EOMs intact without nystagmus, normal conjunctiva, no exudates on lids/lashes. ENT: Nares patent, no circumoral cyanosis, no facial swelling NECK: Supple, trachea midline, painless cervical ROM, no midline vertebral tenderness LUNGS/CHEST: Lungs CTA bilaterally, non-labored respirations, normal A/P diameter, symmetrical expansion, no chest wall deformity HEART (CV/PV): Regular rate and rhythm without murmur, no peripheral edema, no JVD. ABDOMEN: Soft, non-distended, no guarding. MSK: Normal ROM, no swelling/deformity to bilateral UEs or LEs, moving all extremities without weakness, no cyanosis, spine midline without tenderness, normal curvature. NEURO: Mental Status AAOx4 - alert to person, place, time, events No facial droop, no forehead involvement. Motor: No focal weakness - strength 5/5 in bilateral UEs and LEs, proximal and distal, symmetric. Sensory: sensation intact to light touch globally. Gait normal: patient ambulated without ataxia into ED room. PSYCH: euthymic, cooperative, pleasant, appropriate speech Course Vital Signs Vital signs: Vital Signs Temperature 36.9 C 01/04/24 17:23 Pulse 70 01/04/24 17:23 Respiratory Rate 18 01/04/24 17:23 Blood Pressure 168/54 H 01/04/24 17:23 Pulse Oximetry 95 01/04/24 17:23 Temperature 36.9 C 01/04/24 17:23 Temperature Source Tympanic 01/04/24 17:23 Pulse 70 01/04/24 17:23 Respiratory Rate 18 01/04/24 17:23 Respiratory Effort Normal, Non-Labored 01/04/24 17:43 Respiratory Depth Normal 01/04/24 17:43 Respiratory Pattern Normal 01/04/24 17:43 Blood Pressure 168/54 H 01/04/24 17:23 Blood Pressure Position Sitting 01/04/24 17:23 Pulse Oximetry 95 01/04/24 17:23 Oxygen Delivery Method Room Air 01/04/24 17:23 Oxygen Flow Rate 0 01/04/24 17:23 Pain Level 0 01/04/24 17:23 Medical Decision Making This dictation utilizes [id number] dictation software and may contain unedited grammatical errors. 83 year-old female presents to ED today by POV/ambulating with a chief complaint of minor ground-level fall at [employer] with a minor head strike, states she is on thinners but cannot recall which 1 it is not in our records, her daughter has it written on paper as agronox(sp?) with onset around 1400. Quality described as no headache, no real pain, no radiation to nausea/vomiting, repetitive questioning, visual changes, scalp hematoma, neck pain, LOC. Severity is described as 0/10. Palliating factors include nothing specific attempted. Provoking factors include nothing specific. Patient is subjectively anticoagulated. Patients' medical history: Carotid stenosis, CKD, history of cerebral infarction, anemia, Alzheimer's dementia, peripheral vascular disease, COPD, gait abnormality. Family and social history: Noncontributory. Pertinent exam findings / vital signs include no scalp hematoma, no periorbital ecchymosis, no Santacruz sign, neuro intact, NIH is 0, benign cardiopulmonary status. Differential / pathologies of concern include ICH, mild concussion, no other trauma, not vertebral fracture. Diagnostic studies of: -CT head without contrast, CBC, CMP. -CBC shows mild chronic anemia -CMP shows baseline creatinine -CT head without intracranial hemorrhage or other abnormality besides known Alzheimer's changes Interventions of: -None. ED Course/Assessment/Plan: 83-year-old female had a minor fall at [employer] with a minor head strike without LOC, has no concussive symptoms since that it has been about 4+ hours since incident without neurologic deterioration. CT head is negative, patient is likely on an anticoagulant though the daughter cannot recall which 1, it is in record that she has long-term use of anticoagulant. Counseled on monitoring for signs of concussion and neurologic deterioration with strict return, give Tylenol for any headaches. Findings not consistent with intracranial hemorrhage, neurologic abnormality on baseline. Disposition of minor head injury. Patient verbalized understanding of the plan and return to ED criteria and engaged in shared decision making. Medical Records Medical records reviewed: Yes I reviewed the patient's medical records. Imaging Data Radiologic Study: Attestation: I personally reviewed and interpreted this imaging study as follows: Imaging: CT Scan Radiologist's impression: Exam: CT Head Without Contrast Exam date and time: 01/04/2024 6:48 PM Age: 83 years old Clinical indication: Injury or trauma; Blunt trauma (contusions or hematomas); Consciousness not specified; Injury date: 01/04/24; Injury details: Fall, on thinners TECHNIQUE: Imaging protocol: Computed tomography of the head without contrast. COMPARISON: MRI, BRAIN S/ CONTRAST 09/10/2023 11:19 AM FINDINGS: Brain: No acute intracranial hemorrhage, mass-effect, midline shift, or extra-axial collection is seen. There is patchy white matter hypoattenuation, nonspecific but commonly seen as a chronic sequela of small vessel ischemic disease. There is a large old lacunar infarct involving the left basal ganglia, deep white matter tracts, and manley radiata, also seen on the comparison MRI exam from September 10, 2023. The prado white matter differentiation appears preserved. There is symmetric parenchymal volume loss. Cerebral ventricles: There is mild ex vacuo dilatation of the left lateral ventricle but no hydrocephalus. Paranasal sinuses: The visualized paranasal sinuses appear well-aerated. Mastoid air cells: The mastoid air cells appear well-aerated. Auditory system: The middle ear cavities appear clear. Orbital cavities: The globes and intraorbital structures appear grossly intact. Bones: The bony calvarium appears intact. No depressed skull fracture is seen. Soft tissues: No gross focal scalp hematoma is seen. Vasculature: There is atherosclerotic calcification within the intracranial portion of the left vertebral artery and bilateral internal carotid arteries. IMPRESSION: 1. No acute intracranial hemorrhage or depressed skull fracture. 2. Large old lacunar infarct involving the left basal ganglia, deep white matter tracts, and manley radiata. Dictated and Authenticated by: Jeffrey Wood MD. Lab Data Lab results reviewed: Yes I reviewed the patient's lab results. Labs: Laboratory Tests Range/Units 01/04/24 01/04/24 18:18 18:20 WBC (4.4-10.8) 10^3/uL 4.15 L RBC (3.93-5.22) 10^6/uL 3.38 L Hgb (11.2-15.7) g/dL 10.4 L Hct (36.0-46.0) % 30.5 L MCV (80-95) fL 90 MCH (27.0-33.0) pg 30.8 MCHC (32.0-36.0) % 34.1 RDW (11.7-14.6) % 12.7 Plt Count (130-400) 10^3/uL 172 MPV (8.0-11.0) fL 10.1 Immature Gran % % 0.5 Neutrophils % % 66.0 Lymphocytes % % 19.5 Monocytes % % 11.8 Eosinophils % % 1.2 Basophils % % 1.0 Nucleated RBC % (0.0-0.3) % 0.0 Absolute Neutrophils (1.2-6.7) 10^3/uL 2.74 Absolute Lymphocytes (1.2-3.4) 10^3/uL 0.81 L Absolute Monocytes (0.1-0.8) 10^3/uL 0.49 Absolute Eosinophils (0.0-0.7) 10^3/uL 0.05 Absolute Basophils (0.0-0.2) 10^3/uL 0.04 Sodium (136-145) mmol/L 136 Potassium (3.5-5.1) mmol/L 3.8 Chloride (98-107) mmol/L 100 Carbon Dioxide (21.0-32.0) mmol/L 27.7 Anion Gap (3-11) mmol/L 8.3 BUN (7-18) mg/dL 25 H Creatinine (0.55-1.02) mg/dL 1.3 H Est GFR (CKD-EPI 2020) (mL/min/1.73m2) 41.31 Glucose (74-106) mg/dL 155 H Calcium (8.5-10.1) mg/dL 8.8 Total Bilirubin (0.2-1.0) mg/dL 0.30 AST (15-37) U/L 19 ALT (14-59) U/L 17 Alkaline Phosphatase (46-116) U/L 75 Total Protein (6.4-8.2) g/dL 6.3 L Albumin (3.4-5.0) g/dL 3.8 Quality:SDOH Health Related Social Needs: No Data to Display PFSH All Active Problems (Updated 01/04/24 @ 19:47 by MALLORY Barreto) Minor head injury (Acute) RLQ abdominal pain (Acute) Alzheimer's dementia without behavioral disturbance (Acute) Vascular dementia (Acute) Memory deficit (Acute) Greater trochanteric bursitis of right hip (Acute) Injection: 03/25/2022 Headache (Acute) Dizzy (Acute) Vertigo (Acute) Heart murmur, systolic (Acute) Dysphagia (Acute) PVD (peripheral vascular disease) (Chronic) COPD (chronic obstructive pulmonary disease) (Chronic) Balance problems (Acute) Weakness (Acute) Osteopenia (Acute) Chronic back pain (Acute) Anxiety (Chronic) Hypertension (Acute) HLD (hyperlipidemia) (Acute) CVA (cerebral vascular accident) (Chronic) 2006 Heart palpitations (Acute) Iron deficiency anemia (Acute) Anticoagulation adequate with anticoagulant therapy (Acute) Right carotid bruit (Acute) Right shoulder pain (Acute) Former smoker (Acute) Sensory hearing loss (Acute) Abnormal auditory perception (Acute) Cataract (Chronic) Pseudophakia (Acute) Gait abnormality (Acute) Chronic daily headache (Acute) S/P cataract surgery (Acute) History of cerebrovascular accident (CVA) due to ischemia (Acute) Anemia of chronic disease (Acute) Anemia due to blood loss (Acute) Painful orthopaedic hardware (Acute) RIGHT hip S/P removal 09/08/2020 Trochanteric bursitis, right hip (Acute) Abdominal wall hernia (Acute) Iron refractory iron deficiency anemia (Acute) Preoperative cardiovascular examination (Acute) Abdominal wall hernia (Acute) S/P right inguinal herniorrhaphy (Acute) Hernia of anterior abdominal wall (Acute) right sided spigelian hernia- open repair w/ mesh & incidental right direct hernia repair w/ mesh 03/2021 Medical History Heart murmur Fatigue long term current use of anticoagulant Chronic kidney disease Retinal dystrophy Carotid artery stenosis Sensorineural hearing loss Essential hypertension Dementia Pain, joint, knee, right Cerebral infarction Hx of colonic polyp Closed fracture of neck of femur Melena Dizziness and giddiness Anemia Anxiety disorder Vertebrobasilar artery syndrome Constipation Hx of chronic obstructive lung disease Indigestion Thoracic back pain Nonulcer dyspepsia Surgical History Hx of artificial eye lens H/O hernia repair Hx of colonoscopy History of total right hip replacement (11/13/21) DOS 11/13/21 History of cataract surgery History of tonsillectomy Displaced fracture of right femoral neck (07/01/19) S/P cannulated screw fixation: 07/02/2019 S/P matrixectomy of toe of right foot Trigger finger, left Family History Mother Heart disease Rheumatic fever Father Cancer Brother Heart disease Brother Heart disease Social History Smoking/Tobacco Use Status: Former Tobacco Use Quit Date: 06/30/74 Smoking risk assessment performed?: Yes Alcohol Intake: never Drug use: Never Substance use type: does not use Household members: none Housing: house Number of Children: 2 current occupation: Retired Sales/Clerical/Caregiver Current gender identity: female What is your relationship status?: Panel score (0-1 are the most socially isolated patients): 0 Do you feel safe at home: Yes Do you feel safe in your relationship?: Yes
--- NOTE | 2024-01-04 18:00 | DI.CT_ITS ---
Exam(s) CT HEAD WO EXAM: CT HEAD WO CLINICAL HISTORY: fall on thinners. TECHNIQUE: Imaging Protocol: Axial computed tomography images with coronal and sagittal reformatted images were created and reviewed COMPARISON: CT CT HEAD WO from 12/01/2018 MR MRI, BRAIN S/ CONTRAST from 09/10/2023 FINDINGS: Ventricles and Extra axial spaces: Mild dilatation of the lateral ventricle due to adjacent old infar ct. Hemorrhage: None. Cerebral parenchyma: No evidence of acute infarct or mass. Old left basal ganglia lacunar infarct. Midline shift: None. Brainstem/Cerebellum: Normal. Calvarium: Normal. Visualized Paranasal sinuses:Clear. Mastoids: Clear. Soft Tissues: Unremarkable. ORBITS: Unremarkable. PITUITARY: Not enlarged. IMPRESSION: No acute intracranial process. RADIATION DOSE DELIVERED: 842.09mGy.cm Total DLP DATA REPOSITORY: All CT scans at this facility are submitted to the National Radiology Data Registry (NRDR) Dose Index Registry (DIR) with the [employer] (ACR). RADIATION OPTIMIZATION: All CT scans at this facility use at least one of these dose optimization te chniques: automated exposure control; mA and/or kV adjustment per patient size (includes targeted exa ms where dose is matched to clinical indication); or iterative reconstruction.
[2024-01-04 18:24] LABS: Abs Immature Grans 0.02 10^3/uL (0.0-0.06); Absolute Basophil Count 0.04 10^3/uL (0.0-0.2); Absolute Eosinophil Count 0.05 10^3/uL (0.0-0.7); Absolute Lymphocyte Count 0.81 10^3/uL (1.2-3.4); Absolute Monocyte Count 0.49 10^3/uL (0.1-0.8); Absolute Neutrophil Count 2.74 10^3/uL (1.2-6.7); Eosinophils % 1.2 %; HCT 30.5 % (36.0-46.0); HGB 10.4 g/dL (11.2-15.7); Immature Grans % 0.5 %; Lymphocytes % 19.5 %; MCH 30.8 pg (27.0-33.0); MCHC 34.1 % (32.0-36.0); MCV 90 fL (80-95); MPV 10.1 fL (8.0-11.0); Monocytes % 11.8 %; Platelet Count 172 10^3/uL (130-400); RBC 3.38 10^6/uL (3.93-5.22); RDW 12.7 % (11.7-14.6); RDW-SD 41.4 fL; WBC 4.15 10^3/uL (4.4-10.8)
[2024-01-04 18:37] LABS: ALT 17 U/L (14-59); AST 19 U/L (15-37); Albumin 3.8 g/dL (3.4-5.0); Alkaline Phosphatase 75 U/L (46-116); Anion Gap 8.3 mmol/L (3-11); BUN 25 mg/dL (7-18); CO2 27.7 mmol/L (21.0-32.0); CREATININE 1.3 mg/dL (0.55-1.02); Calcium 8.8 mg/dL (8.5-10.1); Chloride 100 mmol/L (98-107); Estimated GFR 41.31 (mL/min/1.73m2); Glucose 155 mg/dL (74-106); Potassium 3.8 mmol/L (3.5-5.1); Sodium 136 mmol/L (136-145); Total Protein 6.3 g/dL (6.4-8.2)
--- NOTE | 2024-01-04 19:33 | DI.VRAD_ITS ---
PROCEDURE INFORMATION: Exam: CT Head Without Contrast Exam date and time: 01/04/2024 6:48 PM Age: 83 years old Clinical indication: Injury or trauma; Blunt trauma (contusions or hematomas); Consciousness not specified; Injury date: 01/04/24; Injury details: Fall, on thinners TECHNIQUE: Imaging protocol: Computed tomography of the head without contrast. COMPARISON: MRI, BRAIN S/ CONTRAST 09/10/2023 11:19 AM FINDINGS: Brain: No acute intracranial hemorrhage, mass-effect, midline shift, or extra-axial collection is seen. There is patchy white matter hypoattenuation, nonspecific but commonly seen as a chronic sequela of small vessel ischemic disease. There is a large old lacunar infarct involving the left basal ganglia, deep white matter tracts, and manley radiata, also seen on the comparison MRI exam from September 10, 2023. The prado white matter differentiation appears preserved. There is symmetric parenchymal volume loss. Cerebral ventricles: There is mild ex vacuo dilatation of the left lateral ventricle but no hydrocephalus. Paranasal sinuses: The visualized paranasal sinuses appear well-aerated. Mastoid air cells: The mastoid air cells appear well-aerated. Auditory system: The middle ear cavities appear clear. Orbital cavities: The globes and intraorbital structures appear grossly intact. Bones: The bony calvarium appears intact. No depressed skull fracture is seen. Soft tissues: No gross focal scalp hematoma is seen. Vasculature: There is atherosclerotic calcification within the intracranial portion of the left vertebral artery and bilateral internal carotid arteries. IMPRESSION: 1. No acute intracranial hemorrhage or depressed skull fracture. 2. Large old lacunar infarct involving the left basal ganglia, deep white matter tracts, and manley radiata. Dictated and Authenticated by: Jeffrey Wood MD. Ordering:COOPER Arias MD
[2024-01-04 19:55] VITALS: BP 192/59; PULSE 64; RESP 18; O2SAT 94
[2024-01-04 20:00] VITALS: BP 192/59; PULSE 64; RESP 18; O2SAT 94
== END 2024-01-04 20:02 | disposition home or self-care (01) ==
PROVIDERS: Emergency Provider Physician Assistant; PCP Nurse Practitioner Family
DX: S00.80XA Unspecified superficial injury of other part of head, initial encounter (principal); I12.9 Hypertensive chronic kidney disease with stage 1 through stage 4 chronic kidney disease, or unspecified chronic kidney disease; N18.9 Chronic kidney disease, unspecified; F03.90 Unspecified dementia, unspecified severity, without behavioral disturbance, psychotic disturbance, mood disturbance, and anxiety; Z79.82 Long term (current) use of aspirin; Z86.73 Personal history of transient ischemic attack (TIA), and cerebral infarction without residual deficits; W18.39XA Other fall on same level, initial encounter; Y93.01 Activity, walking, marching and hiking; Y92.22 Religious institution as the place of occurrence of the external cause
CPT/HCPCS: 36415; 80053; 99284; 70450; 85025

== ENCOUNTER → 2024-01-07 09:42 | Outpatient (BNVA) | payer OTHER, MEDICAID, SELFPAY | PROVIDERS: PCP Nurse Practitioner Family; Referring Provider Nurse Practitioner Family; Visit Provider Nurse Practitioner Adult Health | DX: G30.9 Alzheimer's disease, unspecified (principal); F02.80 Dementia in other diseases classified elsewhere, unspecified severity, without behavioral disturbance, psychotic disturbance, mood disturbance, and anxiety; F01.50 Vascular dementia, unspecified severity, without behavioral disturbance, psychotic disturbance, mood disturbance, and anxiety | CPT/HCPCS: 99214 ==

== ENCOUNTER → 2024-01-12 02:03 | Outpatient (CLI) | payer OTHER, MEDICAID, SELFPAY ==
--- OUTSIDE RECORDS SUMMARY | 2024-01-12 02:05 | XMS_ITS | Clinical Summary ---
Author Organization [facility] Address [address] [place] [address] Care Team Providers Care Boat Laborer Name Role Phone Sheela Storey APRN Primary Care Provider [phone] Allergies Active Allergy Reactions Criticality Noted Date Comments Esomeprazole Magnesium 06/28/2022 Unsure of reaction Other - See Comments 10/13/2009 ? Ambien Medications Medication Sig Dispensed Refills Start Date End Date Status VITAMIN B COMPLEX (B COMPLEX 50 ORAL) Take by mouth daily. Active trazodone (DESYREL) 50 mg tabletIndications:Sl eep disorder Take 3-4 Tabs by mouth at bedtime. Start at 1 tablet (50mg) at bedtime for first 3 nights, then increase to 2 tabs (100mg) 120 Tab 4 12/16/2011 Active losartan (COZAAR) 100 mg tablet TAKE ONE TABLET BY MOUTH EVERY DAY 90 Each 3 05/06/2012 Active Additional Information Patient not taking.Reported on 04/28/2019 simvastatin (ZOCOR) 40 mg tablet TAKE ONE TABLET BY MOUTH EVERY DAY 90 Each 3 05/06/2012 Active Additional Information Patient not taking.Reported on 11/26/2016 CALCIUM CARB & LACT/VITAMIN D3 (CALCET ORAL) Take by mouth daily. A ctive dipyridamole-aspirin (AGGRENOX) 200-25 mg per capsuleIndications:C VA (cerebral infarction) Take 1 Cap by mouth 2 times daily. 180 Cap 1 08/04/2012 Active tramadol (ULTRAM) 50 mg tablet Take 1 Tab by mouth every 6 hours as needed for Pain. 30 Each 5 09/01/2012 Active CALCIUM CARBONATE/VITAMIN D3 (VITAMIN D-3 ORAL) Take by mouth daily. Active ERGOCALCIFEROL, VITAMIN D2, (VITAMIN D ORAL) Take by mouth Active ipratropium (ATROVENT HFA) 17 mcg/actuation inhaler Inhale 2 Puffs as directed every 6 hours. Active VALSARTAN ORAL Take by mouth daily. Active hydroCHLOROthiazide (HYDRODIURIL) 25 mg tablet 1 cap(s) orally once a day Active famotidine (PEPCID) 20 mg tablet 1 tab(s) orally once daily Active atorvastatin (LIPITOR) 10 mg tablet 1 tab(s) orally once a day at bedtime Active fluticasone propionate (FLONASE) 50 mcg/actuation nasal sprayIndications:Dys function of left eustachian tube Instill 1 [place] into both nostrils 2 times daily. 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) 07/11/2009 Overview: 07/2006 CT left post internal capsule; ? related aortic arch atheromatous embolism 08/2008 CT: old lacunar infarcts 08/2011 MRI: remote bilateral basal ganglia and pontine lacunar infarcts Hypertensive disorder 07/11/2009 Hyperlipidemia 07/11/2009 Nephrolithiasis 07/11/2009 Overview: 03/1998 S/p ESWL Chronic anxiety 07/11/2009 Gastroesophageal reflux disease 07/11/2009 Environmental allergies 07/11/2009 Chronic low back pain 07/11/2009 Osteopenia 07/11/2009 Colon polyp 07/11/2009 Overview: Adenomatous 10/03 Chronic neck pain 07/11/2009 Overview: Chronic neck/shoulder pain Acquired trigger finger 07/11/2009 Pain in joint, shoulder region 08/31/2008 Abnormality of gait 10/29/2006 Chronic kidney disease Resolved Problems Problem Noted Date Diagnosed Date Resolved Date Anemia 07/11/2009 02/14/2012 Overview: History of Immunizations Name Administration Dates Next Due DT Vaccine <7YO IM 06/30/1997 Influenza (whole) 04/25/2008 Influenza Vaccine =>3yo Split IM 04/20/2012,1008/2010,03/30/2010 Surgical History Surgery Date Site/Laterality Comments CARPAL TUNNEL RELEASE 1997 right LITHOTRIPSY 1998 TONSILLECTOMY AND ADENOIDECTOMY as child CATARACT REMOVAL WITH IMPLANT 12/19/2005 right TONSILLECTOMY INTRAOCULAR LENS PROSTHESIS INSERTION 11/2005 right INTRAOCULAR LENS PROSTHESIS INSERTION 12/2005 left Medical History Medical History Date Comments Anemia Cataract Hypertension Family History Medical History Relation Comments Cancer Father unknown Blindness Mother Coronary Artery Disease Mother CO 60 d 70's Diabetes Neg Hx Glaucoma Neg Hx Macular Degeneration Neg Hx Relation Status Comments Father Mother (Age 70's) Social History Tobacco Use Types Packs/Day Years Used Date Smoking Tobacco: Former Cigarettes Smokeless Tobacco: Never Alcohol Use Standard Drinks/Week Comments Yes 0 (1 standard drink = 0.6 oz pur e alcohol) rare Interpersonal Safety Answer Date Record ed Physically Hurt Never 01/30/2020 Verbally Threaten Not on file 01/30/2020 Sex and Gender Information Value Date Recorded Sex Assigned at Not on file Gender Identity Female 10/16/2020 9:54 EDT Sexual Orientation Not on file Obstetrics History Last Filed Vital Signs Vital Sign Reading Time Taken Comments Blood Pressure 160/60 06/09/2012 0937 EST Pulse 78 06/09/2012 0937 EST Temperature 36.3 ??C (97.4 ??F) 06/28/2022 1413 EST Respiratory Rate 24 06/28/2022 1413 EST Oxygen Saturation 97% 06/28/2022 1413 EST Inhaled Oxygen Concentration - - Weight 69.4 kg (153 lb) 05/08/2012 1506 EST Height 157.5 cm (5' 2) 04/20/2012 1008 EDT Body Mass Index 27.98 04/20/2012 1008 EDT Plan of Treatment Upcoming Encounters Date Type Department Care Team (Late st Contact Info) Description 02/03/2024 12:45 EDT Office Visit [facility] Ophthalmology [facility] [address] [place] [address] Goldy Guzman MD [address] [place] [phone] Health Maintenance Due Date Last Done Comments RSV Immunization ( o r 60+ Years) (1 - 1-dose 60+ series) 2002 Fall Risk Screening 11/21/2016 11/22/2015, 5 COVID-19 Vaccine (2022-24 season) 2023 Care Teams Boat Laborer Relationship Specialty Start Date End Date Sheela Storey APRN [facility] COUNTYAIDEN FLORESDoroteo [address] [place] [address] PCP - General 12/16/13
--- OUTSIDE RECORDS SUMMARY | 2024-01-12 02:05 | XMS_ITS | Referral Summary ---
Author Organization [facility] Address [address] [place] [address] Care Team Providers Care Potato Chip Processing Supervisor Name Role Phone Sheela Storey APRN Primary Care Provider [phone] Allergies Active Allergy Reactions Criticality Noted Date [...] function of left eustachian tube Instill 1 [place] into both nostrils 2 times daily. 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) 07/11/2009 Overview: 07/2006 CT left post [...] (whole) 04/25/2008 Influenza Vaccine =>3yo Split IM 04/20/2012,08/2010,03/30/2010 Social History Tobacco Use Types Packs/Day Years [...] 9:54 EDT Sexual Orientation Not on file Last Filed Vital Signs Vital Sign Reading [...] Body Mass Index 27.98 04/20/2012 1008 EDT Functional Status Functional Status Response Date of Assess ment Because of a physical, menta l, or emotional condition, does this person have difficulty doing errands alone such as visiting a doctor's office or shopping? No 11/26/2016 Cognitive Status Response Date of Assessm ent Because of a physical, menta l, or emotional condition, does this person have serious difficulty concentrating, remembering, or making decisions? No 11/26/2016 Plan of Treatment Upcoming Encounters Date Type Department Care Team (Late st Contact Info) Description 02/03/2024 12:45 EDT Office Visit [facility] [address] [place] [address] Goldy Guzman MD [address] [place] [phone] Care Teams Potato Chip Processing Supervisor Relationship Specialty Start Date End Date Sheela Storey APRN CLAUDIA MCKAY [address] [place] [phone] PCP - General 12/16/13
--- OUTSIDE RECORDS SUMMARY | 2024-01-12 02:06 | XMS_ITS | Encounter Summary ---
Author Organization [facility] Address [address] [place] [address] Care Team Providers Care Hunting Guide Name Role Phone Sheela Storey APRN Primary Care Provider [phone] Encounter Details Date Type Department Care Team (Late st Contact Info) Description 10/07/2018 Historical Results Only [facility] Radiology Results [address] [place] [address] Aguila Juan, [facility] [address] [place], [place] [id number] Social History Tobacco Use Types Packs/Day Years Used Date Smoking Tobacco: Former Cigarettes Smokeless Tobacco: Never Alcohol Use Standard Drinks/Week Comments Yes 0 (1 standard drink = 0.6 oz pur e alcohol) rare Sex and Gender Information Value Date Recorded Sex Assigned at Not on file Gender Identity Female 10/16/2020 9:54 EDT Sexual Orientation Not on file documented as of this encounter Functional Status Functional Status Response Date of [...] concentrating, remembering, or making decisions? No 11/26/2016 documented as of this encounter Plan of Treatment Upcoming Encounters Date Type Department Care Team (Late st Contact Info) Description 02/03/2024 12:45 EDT Office Visit [facility] Ophthalmology [facility] [address] [place] [address] Goldy Guzman MD [address] [place] [phone] documented as of this encounter Procedures Procedure Name Priority Date/Time Associated Diagnosis Comments XR FOOT RIGHT 3 OR MORE VIEWS 10/07/2018 8:51 EDT documented in this encounter Results * XR FOOT RIGHT 3 OR MORE VIEWS (10/07/2018 8:51 EDT) Anatomical Region Laterality Modality Lower Extremities Right Other 10/07/2018 8:51 EDT Narrative 10/07/2018 8:54 EDT ? EXAM: RADIOLOGY/FOOT RIGHT 3+VIEW ? EX. D/ (0833) ? CLINICAL INFORMATION: ? 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 INDICATION: HALLUX RIGIDUS OF RIGHT FOOT M20.21. ? COMPARISON: Right foot radiograph 09/15/2018 ? TECHNIQUE: 3 views of the right foot were obtained. ? FINDINGS: ? Progressive healing of the internally fixed arthrodesis of the great ? toe metatarsal phalangeal joint is unchanged in position and ? alignment when compared to the prior study. Swelling of the soft ? tissues adjacent to the great toe metatarsal phalangeal joint is ? unchanged. No instrumentation failure. ? REPORT SIGNED IN OTHER VENDOR SYSTEM 10/07/2018 ?Reported By: Jacky Calero MD ? CC: ? Transcribed Date/Time: 10/07/2018 (0854) ? Plywood And Veneer Repairer: ? Printed Date/Time: 12/21/2018 (0358) ? PAGE 1 ? Signed Report ? Procedure Note Jacky Calero MD - 05/06/2019 EXAM: RADIOLOGY/FOOT RIGHT 3+VIEW EX. D/ (0833) CLINICAL INFORMATION: HALLUX RIGIDUS OF RIGHT FOOT M20.21 INDICATION: HALLUX RIGIDUS OF RIGHT FOOT M20.21. COMPARISON: Right foot radiograph 09/15/2018 TECHNIQUE: 3 views of the right foot were obtained. FINDINGS: Progressive healing of the internally fixed arthrodesis of thegreat toe metatarsal phalangeal joint is unchanged in position and alignment when compared to the prior study. Swelling of the soft tissues adjacent to the great toe metatarsal phalangeal joint is unchanged. No instrumentation failure. REPORT SIGNED IN OTHER VENDOR SYSTEM 10/07/2018 Reported By: Jacky Calero MD CC: Transcribed Date/Time: 10/07/2018 (0854) Plywood And Veneer Repairer: Printed Date/Time: 12/21/2018 (0358) PAGE 1 Signed Report Aguila Juan DPM IMG DIAGNOSTIC IMAG ING ORDERABLES documented in this encounter Visit Diagnoses Not on filedocumented in this encounter Care Teams Hunting Guide Relationship Specialty Start Date End Date Sheela Storey APRN [address] [place] [address] [address] [place] [address] PCP - General 12/16/13 documented as of this encounter
--- OUTSIDE RECORDS SUMMARY | 2024-01-12 02:06 | XMS_ITS | Encounter Summary ---
Author Organization [facility] Address [address] [place] [address] Care Team Providers Care Doubler Helper Name Role Phone Sheela Storey APRN Primary Care Provider [phone] Reason for Referral * (Routine) - New Request Specialty Diagnoses / Procedures Referred By Layne romeo Referred To Contact Diagnoses Vitelliform macular dystrophy Procedures OCT (OPHTHALMIC DIGITAL IMAGING, POSTERIOR SEGMENT) Goldy Guzman MD [address] [place] [phone] Referral ID Status Reason Start Date Expiration Date V isits Requested Visits Authorized [id number] New Request 04/28/2019 1 1 Reason for Visit * Reason Comments Eye Exam 2+ year complete: Vi telliform dystrophy, both eyes Encounter Details Date Type Department Care Team (Late st Contact Info) Description 04/28/2019 10:15 EDT Office Visit [facility] Ophthalmology [address] [phone] Goldy Guzman MD [address] [place] [phone] Social History Tobacco Use Types Packs/Day Years [...] No 11/26/2016 documented as of this encounter Progress Notes * Goldy Guzman - 04/28/2019 1015 EDT Chief Complaint Patient presents with ??? Eye Exam 2+ year complete: Vitelliform dystrophy, both eyes HPI The patient is a 78 y.o. female here for follow up of vitelliform dystrophy. She reports that the vision has not been very good. She has no new floaters or flashes and no eye pain. Right Eye: Blurred Vision, Dryness Left Eye: Blurred Vision, Dryness Visual Aid: Glasses Current Rx Age 3 year Location: Both eyes Pain: Quality: Blurry Severity: Duration: Months Timing: Lasts: Context: Patient reports vision is more blurry with both eyes. This has been going on for quite a long time but she is not sure for how long. Things are generally less clear. She sometimes checks Amsler grid, but no recent changes in distortion reported. Modifying factors: She uses artificial tears in the mornings to help with dry eyes. She has tuned the area where she has seen a floater in the past. Associated Signs & Symptoms: She updated glasses 1-1.5 years ago, but doesn't know if these helped with overall clarity of vision. Attestation: ROS Constitutional: NL ENT/Mouth NL Cardiovascular: High Blood Pressure, High Cholesterol Respiratory: NL Gastrointestinal: NL Genitourinary: NL Musculoskeletal: NL Integumentary: NL Neurologic: (dizziness / off-balance) Psychiatric: NL Endocrine: NL Hematologic: NL Immunologic: Drug Allergy Freezer Assistant: Exposures: None Other: Attestation: Base Eye Exam Visual Acuity (Snellen - Linear) Right Left Dist cc 20/30 +/- 20/50 +1 Correction: Glasses Tonometry (Applanation, 11:13) Right Left Pressure 13 13 Pupils Pupils APD Right PERRL None Left PERRL None Visual Sierra (Counting fingers) Right Left Full Full Extraocular Movement Right Left Full Full Neuro/Psych Oriented x3: Yes Mood/Affect: Normal Dilation Both eyes: 1.0% Mydriacyl, 2.5% Phenylephrine @ 11:14 Slit Lamp and Fundus Exam Slit Lamp Exam Right Left Lids/Lashes Sessile papillomas lateral and central lower lid Normal Conjunctiva/Sclera White and quiet White and quiet Cornea Clear Clear Anterior Chamber Deep and quiet Deep and quiet Iris Round and reactive Round and reactive Lens Posterior chamber intraocular lens, Open posterior capsule Posterior chamber intraocular lens,trace Posterior capsular opacification Fundus Exam Right Left Vitreous floaters Posterior vitreous detachment Disc Normal Normal C/D Ratio 0.25 0.25 Macula Yellowish RPE change adjacent ot fovea, ? vitelliform lesion Yellowish RPE change adjacent ot fovea, ? vitelliform lesion Vessels Normal Normal Periphery Normal Normal Refraction Wearing Rx Sphere Cylinder [place] Add Right +0.75 +0.75 023 +2.75 Left +0.75 +0.75 010 +2.75 Type: Bifocal Manifest Refraction (Auto) Sphere Cylinder [place] Dist VA Add Right +1.00 +1.25 010 20/25-2 Left [place] +2.25 174 20/25-1 Manifest Refraction #2 Sphere Cylinder [place] Dist VA Add Right +0.75 +1.25 015 20/30-2 +2.75 Left -0.50 +2.25 180 20/30-3 +2.75 Final Rx Sphere Cylinder [place] Add Right +0.75 +1.25 015 +2.75 Left -0.50 +2.25 180 +2.75 DIAGNOSTIC TESTS: Indication: Vitelliform dystrophy OCT macula: Right: signal strength: 8/10, distorted foveal contour, subfoveal vitelliform lesion, no intra/subretinal fluid Left: signal strength: 7/10, distorted foveal contour, subfoveal vitelliform lesion, no intra/subretinal fluid IMPRESSION & PLAN: 1. Vitelliform Dystrophy, both eyes -Stable -Will continue to follow with yearly OCT ?? -Continue use of Amsler grid 2. Posterior capsular opacification, left eye -not visually significant -monitor 3. Posterior vitreous detachment, left eye(s) Stable, monitor periodically 4. Pseudophakia, both eyes Stable, observe 5. Disorder of refraction and accommodation -Give glasses Rx patient???s option to fill I have reviewed the patient's past medical, family, social and surgical history. I have also reviewed the patient's medications, allergies, and problem list. I performed my own HPI and have reviewed the tech's ROS as well. I completed this exam personally. Goldy Guzman MD I am scribing for Goldy Guzman MD, while he is personally performing the service. RAYMUNDO Coffman Patient Education Topic: vitelliform dystrophy, glasses Method: Verbal Taught to: Patient Barriers: None Outcomes: independent Signature: Goldy Guzman MD documented in this encounter Plan of Treatment Upcoming Encounters Date Type Department Care Team (Late st Contact Info) Description 02/03/2024 12:45 EDT Office Visit [facility] Ophthalmology [address] [address] Goldy Guzman MD [address] [place] [phone] Scheduled Orders Name Type Priority Associated Diagnoses Orde r Schedule OCT (OPHTHALMIC DIGITAL IMAGING, POSTERIOR SEGMENT) Ophthalmology Routine Vitelliform macular dystrophy Ordered: 04/28/2019 documented as of this encounter Visit Diagnoses Diagnosis Vitelliform macular dystrophy- Primary Dystrophies primarily involving the retinal pigment epithelium PCO (posterior capsular opacification), left After-cataract, unspecified Posterior vitreous detachment, left eye Vitreous degeneration Pseudophakia of both eyes Lens replaced by other means Disorder of refraction and accommodation Unspecified disorder of refraction and accommodation documented in this encounter Historical Medications * This list may reflect changes made after this encounter. Medication Sig Dispensed Refills Start Date End Date famotidine (PEPCID) 20 mg tablet 1 tab(s) orally once daily hydroCHLOROthiazide (HYDRODIURIL) 25 mg tablet 1 cap(s) orally once a day VALSARTAN ORAL Take by mouth daily. added in this encounter Eye Exam Visual Acuity (Snellen - Linear) Right eye Left eye Dist cc 20/30 +/- 20/50 +1 Correction: Glasses Tonometry (Applanation, 11:13) Right eye Left eye Pressure 13 13 Pupils Pupils APD Right eye PERRL None Left eye PERRL None Visual Sierra (Counting fingers) Right eye Left eye Full Full Extraocular Movement Right eye Left eye Full Full Neuro/Psych Oriented x3: Yes Mood/Affect: Normal Dilation Both eyes: 1.0% Mydriacyl, 2 .5% Phenylephrine @ 11:14 Slit Lamp Exam Right eye Left eye Lids/Lashes Sessile papillomas l ateral and central lower lid Normal Conjunctiva/Sclera White and quiet White and haris et Cornea Clear Clear Anterior Chamber Deep and quiet Deep and quiet Iris Round and reactive Round and judi ctive Lens Posterior chamber in traocular lens, Open posterior capsule Posterior chamber intraocular lens, trace Posterior capsular opacification Vitreous floaters Posterior vitreo us detachment Fundus Exam Right eye Left eye Disc Normal Normal C/D Ratio 0.25 0.25 Macula Yellowish RPE change adjacent ot fovea, ? vitelliform lesion Yellowish RPE change adjacent ot fovea, ? vitelliform lesion Vessels Normal Normal Periphery Normal Normal Wearing Rx Sphere Cylinder [place] Add Right eye +0.75 +0.75 023 +2.75 Left eye +0.75 +0.75 010 +2.75 Type: Bifocal Manifest Refraction #1 (Auto) Sphere Cylinder [place] Dist VA Add Right eye +1.00 +1.25 010 20/25-2 Left eye [place] +2.25 174 20/25-1 Manifest Refraction #2 Sphere Cylinder [place] Dist VA Add Right eye +0.75 +1.25 015 20/30-2 +2.75 Left eye -0.50 +2.25 180 20/30-3 +2.75 Final Rx Sphere Cylinder [place] Add Right eye +0.75 +1.25 015 +2.75 Left eye -0.50 +2.25 180 +2.75 Care Teams Doubler Helper Relationship Specialty Start Date End Date Sheela Storey APRN [address] [phone] PCP - General 12/16/13 documented as of this encounter
--- OUTSIDE RECORDS SUMMARY | 2024-01-12 02:06 | XMS_ITS | Encounter Summary ---
Author Organization [facility] Address [address] [place] [address] Care Team Providers Care Radiology Ct Technologist Name Role Phone Star Winter MD Primary Care Provider [phone] Reason for Visit * Reason Comments Other Encounter Details Date Type Department Care Team (Late st Contact Info) Description 11/02/[address] [phone] Junior Azevedo PA-C Other Social History Tobacco Use Types Packs/Day Years Used Date Smoking Tobacco: Former Cigarettes Smokeless Tobacco: Never Alcohol Use Standard Drinks/Week Comments Yes 0 (1 standard drink = 0.6 oz pur e alcohol) rare Sex and Gender Information Value Date Recorded Sex Assigned at Not on file Gender Identity Female 10/16/2020 9:54 EDT Sexual Orientation Not on file documented as of this encounter Miscellaneous Notes * Telephone Encounter - Leeanne Clements - 11/03/2012 1142 EDT Refused d/t pt no longer a pt here documented in this encounter Plan of Treatment Upcoming Encounters Date Type Department Care Team (Late st Contact Info) Description 02/03/2024 12:45 EDT Office Visit [facility] Ophthalmology [facility] [address] [place] [address] Goldy Guzman MD [address] [place] [phone] documented as of this encounter Visit Diagnoses Not on filedocumented in this encounter Care Teams Radiology Ct Technologist Relationship Specialty Start Date End Date Star Winter MD [address] [place] [id number] PCP - General 09/22/12 12/15/13 documented as of this encounter
--- OUTSIDE RECORDS SUMMARY | 2024-01-12 02:06 | XMS_ITS | Encounter Summary ---
Author Organization [facility] Address [address] [place] [address] Care Team Providers Care Supervising Chef Name Role Phone Sheela Storey APRN Primary Care Provider [phone] Encounter Details Date Type Department Care Team (Latest Contact Info) Description 07/17/2018 9:05 EST - 07/17/2018 23:59 EST Hospital Encounter [facility] [address] [place] [address] Unknown, Provider, Discharge Disposition: Home or Self Care Social History Tobacco Use Types Packs/Day Years [...] No 11/26/2016 documented as of this encounter Medications at Time of Discharge Medication Sig Dispensed Refills Start Date End Date CALCIUM CARB & LACT/VITAMIN D3 (CALCET ORAL) Take by mouth daily. CALCIUM CARBONATE/VITAMIN D3 (VITAMIN D-3 ORAL) Take by mouth daily. dipyridamole-aspirin (AGGRENOX) 200-25 mg per capsuleIndications:CVA (cerebral infarction) Take 1 Cap by mouth 2 times daily. 180 Cap 1 08/04/2012 ERGOCALCIFEROL, VITAMIN D2, (VITAMIN D ORAL) Take by mouth ipratropium (ATROVENT HFA) 17 mcg/actuation inhaler Inhale 2 Puffs as directed every 6 hours. losartan (COZAAR) 100 mg tablet TAKE ONE TABLET BY MOUTH EVERY DAY 90 Each 3 05/06/2012 simvastatin (ZOCOR) 40 mg tablet TAKE ONE TABLET BY MOUTH EVERY DAY 90 Each 3 05/06/2012 tramadol (ULTRAM) 50 mg tablet Take 1 Tab by mouth every 6 hours as needed for Pain. 30 Each 5 09/01/2012 trazodone (DESYREL) 50 mg tabletIndications:Sleep disorder Take 3-4 Tabs by mouth at bedtime. Start at 1 tablet (50mg) at bedtime for first 3 nights, then increase to 2 tabs (100mg) 120 Tab 4 12/16/2011 VITAMIN B COMPLEX (B COMPLEX 50 ORAL) Take by mouth daily. documented as of this encounter Discharge Disposition Disposition Code Departure Means Destination Home or Self Senior Care documented in this encounter Plan of Treatment Upcoming Encounters Date Type Department Care Team (Late st Contact Info) Description 02/03/2024 12:45 EDT Office Visit [facility] Ophthalmology [facility] [address] [place] [address] Goldy Guzman MD [address] [place] [phone] documented as of this encounter Visit Diagnoses Not on filedocumented in this encounter Care Teams Supervising Chef Relationship Specialty Start Date End Date Sheela Storey [facility]N [facility] [address] [place] [address] PCP - General 12/16/13 documented as of this encounter
--- OUTSIDE RECORDS SUMMARY | 2024-01-12 02:06 | XMS_ITS | Encounter Summary ---
Author Organization [facility] Address [address] [place] [address] Care Team Providers Care Claim Benefit Specialist Name Role Phone Sheela Storey APRN Primary Care Provider [phone] Reason for Visit * Reason Comments Eye Flashes And/Or Floaters New floater in left eye. Encounter Details Date Type Department Care Team (Late st Contact Info) Description 11/06/2015 9:30 EDT Office Visit [facility] Ophthalmology [facility] [address] [place] [address] Goldy Guzman MD [address] [place] [phone] Social History Tobacco Use Types Packs/Day Years [...] visiting a doctor's office or shopping? No 11/06/2015 Cognitive Status Response Date of Assessm ent Because of a physical, menta l, or emotional condition, does this person have serious difficulty concentrating, remembering, or making decisions? No 11/06/2015 documented as of this encounter Patient Instructions * Patient Instructions* Goldy Guzman MD - 11/06/2015 10:46 EDT Images from the original note were not included. [facility] Patient Instructions Floaters and Flashes: Care Instructions Your Care Instructions Floaters are spots and lines that float across your field of vision. They are caused by stray cells or strands of tissue inside the eyeball. Flashes are sparkles or lightning streaks. These occur in your side vision. This is called the peripheral vision. Floaters and flashes usually aren't serious. In many cases, they're a normal part of getting older.Some people get used to them. Others find them annoying. If floaters bother you, you can try to look up and then down. This may make them go away. For now, your doctor doesn't think your symptoms are a sign of a more serious problem. But an eye exam is the only way to know for sure. Follow-up care is a cesar part of your treatment and safety. Be sure to make and go to all appointments, and call your doctor if you are having problems. It's also a good idea to know your test resultsand keep a list of the medicines you take. When should you call for help? Call your doctor now or seek immediate medical care if: ?? You have sudden vision loss. ?? You have a shadow or curtain over part of your visual field. Watch closely for changes in your health, and be sure to contact your doctor if: ?? You have more floaters. These may look like specks, globs, strings, or dots that move across thefield of vision. ?? The flashes of light or cruz get worse. Where can you learn more? Go to [email or web address].[email or web address] or log into your [employer] account at [email or web address] Enter T465 in the search box to learn more about Floaters and Flashes: Care Instructions. ?? [id number] [employer]. Care instructions adapted under license by [facility] This care instruction is for use with your licensed healthcare professional. If you have questions about a medical condition or this instruction, always ask your healthcare professional. [employer] disclaims any warranty or liability for your use of this information. Content Version: 10.8.675658; Current as of: February 17, 2015 documented in this encounter Progress Notes * Goldy Guzman MD - 11/06/2015 1030 EDT Chief Complaint Patient presents with ??? Eye Flashes And/Or Floaters New floater in left eye. HPI The patient is a 75 y.o. female here for new floater and it doesn't float. Looks like a thread thatruns up and down. Started 11/02/15. Had two episodes of brief flash of light several days inbetween. Right Eye: Glare or Light Sensitivity Left Eye: Floaters, Glare or Light Sensitivity Visual Aid: Glasses Current Rx Age 4 years Location: Pain: 0 - No pain Quality: Severity: Duration: Timing: Lasts: Context: 4 days ago she started seeing a floater out of left eye. It is a dark thread shaped one. It moves with her eye. Modifying factors: Associated Signs & Symptoms: Attestation: ROS Constitutional: NL ENT/Mouth Cardiovascular: Respiratory: Gastrointestinal: Genitourinary: Musculoskeletal: Integumentary: Neurologic: Psychiatric: Endocrine: Hematologic: Immunologic: [employer] Equipment Repairer: Exposures: None Other: Attestation: Base Eye Exam Visual Acuity (Snellen - Linear) Right Left Dist cc 20/20 -3 20/20 -2 Tonometry (Applanation, 9:40) Right Left Pressure 18 15 Pupils Pupils Dark APD Right PERRL 3 None Left PERRL 3 None Visual Sierra (Counting fingers) Right Left Result Full Full Extraocular Movement Right Left Result Full Full Neuro/Psych Oriented x3: Yes Mood/Affect: Normal Dilation Both eyes: 1.0% Mydriacyl, 2.5% Phenylephrine @ 9:41 Slit Lamp and Fundus Exam Slit Lamp Exam Right Left Lids/Lashes papillomas lateral and central lower lid Normal Conjunctiva/Sclera White and quiet White and quiet, tr. staining with lissamine green Cornea Clear Clear Anterior Chamber Deep and quiet Deep and quiet Iris Round and reactive Round and reactive Lens Posterior chamber intraocular lens, Posterior capsular opening Posterior chamber intraocular lens Fundus Exam Right Left Vitreous [place]'s sign negative Melinda's sign negative, Lerma ring Disc Normal Normal C/D Ratio 0.25 0.25 Macula Yellowish RPE change adjacent ot fovea, ? vitelliform lesion Yellowish RPE change adjacent ot fovea, ? vitelliform lesion Vessels Normal Normal Periphery Normal no holes or tears with SD 360 deg DIAGNOSTIC TESTS: IMPRESSION & PLAN: 1. Posterior vitreous detachment, Left eye No retinal breaks or tears on 360 degree scleral depression -Discussed signs/symptoms of retinal detachment and the patient knows to call/return if they occur -Return 1 month for repeat dilated exam 2. Pseudophakia, both eyes Stable, observe 3. Vitelliform Dystrophy, both eyes -Stable from prior exam -Will continue to follow with yearly OCT -Continue use of Amsler grid I have reviewed the patient's past medical, family, social and surgical history. I have also reviewed the patient's medications, allergies, and problem list. I performed my own HPI and have reviewed the tech's ROS as well. I completed this exam personally. Goldy Guzman MD I am scribing for Goldy Guzman MD, while he is personally performing the service. 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 documented in this encounter Eye Exam Visual Acuity (Snellen - Linear) Right eye Left eye Dist cc 20/20 -3 20/20 -2 Tonometry (Applanation, 9:40) Right eye Left eye Pressure 18 15 Pupils Pupils Dark APD Right eye PERRL 3 None Left eye PERRL 3 None Visual Sierra (Counting fingers) Right eye Left eye Full Full Extraocular Movement Right eye Left eye Full Full Neuro/Psych Oriented x3: Yes Mood/Affect: Normal Dilation Both eyes: 1.0% Mydriacyl, 2 .5% Phenylephrine @ 9:41 Slit Lamp Exam Right eye Left eye Lids/Lashes papillomas lateral a nd central lower lid Normal Conjunctiva/Sclera White and quiet White and haris et, tr. staining with lissamine green Cornea Clear Clear Anterior Chamber Deep and quiet Deep and quiet Iris Round and reactive Round and judi ctive Lens Posterior chamber in traocular lens, Posterior capsular opening Posterior chamber intraocular lens Vitreous Melinda's sign negative Melinda's sign negative, Lerma ring Fundus Exam Right eye Left eye Disc Normal Normal C/D Ratio 0.25 0.25 Macula Yellowish RPE change adjacent ot fovea, ? vitelliform lesion Yellowish RPE change adjacent ot fovea, ? vitelliform lesion Vessels Normal Normal Periphery Normal no holes or tear s with SD 360 deg Care Teams Claim Benefit Specialist Relationship Specialty Start Date End Date Sheela Storey, ELIZABETH [address] [place] [phone] PCP - General 12/16/13 documented as of this encounter
--- OUTSIDE RECORDS SUMMARY | 2024-01-12 02:06 | XMS_ITS | Encounter Summary ---
Author Organization [facility] Address [address] [place] [address] Care Team Providers Care Butcher Supervisor Name Role Phone Sheela Storey APRN Primary Care Provider [phone] Reason for Visit * Reason Comments Eye Exam Complete exam: Vitel liform Dystrophy, both eyes Encounter Details Date Type Department Care Team (Late st Contact Info) Description 01/08/2021 8:00 EDT Office Visit [facility] Ophthalmology [facility] [address] [place] [address] Goldy Guzman MD [address] [place] [phone] Social History Tobacco Use Types Packs/Day Years [...] Progress Notes * Goldy Guzman MD - 01/08/2021 0800 EDT Chief Complaint Patient presents with ??? Eye Exam Complete exam: Vitelliform Dystrophy, both eyes HPI The patient is a 80 y.o. female here for complete exam and check of vitelliform dystrophy of both eyes and posterior capsular opacification of left eye. She notes reading vision is less clear now andsometimes has difficulty recognizing things at a distance. Dry eye bothers her in the winter but isnot bad in summer. Stable floaters with left eye with no recent flashes of light or double vision. Right Eye: Blurred Vision Left Eye: Floaters, Blurred Vision Visual Aid: Glasses Current Rx Age Location: Both eyes Pain: Quality: Blurry Severity: Duration: Timing: Lasts: Context: Complete exam: Vitelliform Dystrophy, both eyes Modifying factors: Notes more difficulty reading and has a harder time recognizing some things at adistance. Eyes are dry during the winter, but feel better this time of year. Same floaters with left eye reported. Denies recent flashes of light. Associated Signs & Symptoms: Attestation: ROS Constitutional: NL ENT/Mouth NL Cardiovascular: High Blood Pressure, High Cholesterol Respiratory: NL Gastrointestinal: (GERD) Genitourinary: NL Musculoskeletal: (broke right hip) Integumentary: NL Neurologic: NL Psychiatric: NL Endocrine: NL Hematologic: NL Immunologic: NL Motor Hotel Manager: Exposures: None Other: hernia Attestation: Base Eye Exam Visual Acuity (Snellen - Linear) Right Left Dist cc 20/40 +/- 20/40 Correction: Glasses Tonometry (Applanation, 8:33) Right Left Pressure 13 11 Pupils Dark Shape APD Right 2.5 Round None Left 2.5 Round None Visual Sierra (Counting fingers) Right Left Full Full Extraocular Movement Right Left Full Full Neuro/Psych Oriented x3: Yes Mood/Affect: Normal Dilation Both eyes: Tropicamide 1%, Phenylephrine 2.5% @ 8:34 Slit Lamp and Fundus Exam Slit Lamp Exam Right Left Lids/Lashes Sessile papillomas lateral and central lower lid Normal Conjunctiva/Sclera White and quiet White and quiet Cornea Trace punctate epithelial erosions Trace punctate epithelial erosions Anterior Chamber Deep and quiet Deep and quiet Iris Round and reactive Round and reactive Lens Posterior chamber intraocular lens, Open posterior capsule Posterior chamber intraocular lens,trace-1+ posterior capsular opacification Fundus Exam Right Left Vitreous Floaters Posterior vitreous detachment Disc Normal Normal C/D Ratio 0.25 0.3 Macula Central vitelliform lesion Central vitelliform lesion Vessels Normal Normal Periphery Normal Normal Refraction Wearing Rx Sphere Cylinder [place] Add Right +0.75 +1.25 018 +2.75 Left -0.50 +2.25 005 +2.75 Age: 1+ yr Type: Bifocal Manifest Refraction Sphere Cylinder [place] Dist [place] Right +1.00 +1.25 017 20/30-1 Left -0.25 +2.25 177 20/40 Comments: (NI left eye) DIAGNOSTIC TESTING/PROCEDURES: OCT, Retina - OU - Both Eyes Indication: Vitelliform Dystrophy OCT macula: Right: signal strength: 10/10, distorted foveal contour, subfoveal vitelliform lesion, no intra/subretinal fluid Left: signal strength: 10/10, distorted foveal contour, subfoveal vitelliform lesion, no intra/subretinal fluid IMPRESSION & PLAN: 1. Vitelliform Dystrophy, both eyes Stable on OCT today. -Continue to follow with yearly OCT-mac?? -Continue use of Amsler grid 2. Posterior capsular opacification, left eye -not visually significant -monitor 3. Posterior vitreous detachment, left eye(s) Stable, monitor periodically 4. Dry eye syndrome, both eyes -Discussed contributing factors -Warm compresses twice daily -Recommend proactive use of artificial tears twice daily 5. Pseudophakia, both eyes Stable, observe I have reviewed the patient's past medical, family, social and surgical history. I have also reviewed the patient's medications, allergies, and problem list. I performed my own HPI and have reviewed the [facility]'s ROS as well. I completed this exam personally. Goldy Guzman MD I am scribing for Goldy Guzamn MD, while he is personally performing the service. [facility] Patient Education Topic: vitelliform dystrophy Method: Verbal Taught to: Patient Barriers: None Outcomes: independent Signature: Goldy Guzman MD documented in this encounter Plan of Treatment Upcoming Encounters Date Type Department Care Team (Late st Contact Info) Description 02/03/2024 12:45 EDT Office Visit [facility] Ophthalmology - [place] [address] [place] [address] Goldy Guzman MD [address] [place] [phone] documented as of this encounter Procedures Procedure Name Priority Date/Time Associated Diagnosis Comments OCT, RETINA - OU - BOTH EYES Routine 01/08/2021 9:12 EDT Vitelliform macular dystrophy documented in this encounter Results * OCT, RETINA - OU - BOTH EYES (01/08/2021 9:12 EDT) Narrative [facility] POINT OF CARE - 01/08/2021 9:12 EDT Indication: Vitelliform Dystrophy OCT macula: Right: signal strength: 10/10, distorted foveal contour, subfoveal vitelliform lesion, no intra/subretinal fluid Left: signal strength: 10/10, distorted foveal contour, subfoveal vitelliform lesion, no intra/subretinal fluid ?? Goldy Guzman MD OPHTH TOMOGRAPHY [facility] POINT OF CARE documented in this encounter Visit Diagnoses Diagnosis Vitelliform macular dystrophy- Primary Dystrophies primarily involving the retinal pigment epithelium PCO (posterior capsular opacification), left After-cataract, unspecified Posterior vitreous detachment, left eye Vitreous degeneration Dry eye Tear film insufficiency, unspecified Pseudophakia of both eyes Lens replaced by other means documented in this encounter Historical Medications * This list may reflect changes made after this encounter. Medication Sig Dispensed Refills Start Date End Date atorvastatin (LIPITOR) 10 mg tablet 1 tab(s) orally once a day at bedtime added in this encounter Eye Exam Visual Acuity (Snellen - Linear) Right eye Left eye Dist cc 20/40 +/- 20/40 Correction: Glasses Tonometry (Applanation, 8:33) Right eye Left eye Pressure 13 11 Pupils Dark Shape APD Right eye 2.5 Round None Left eye 2.5 Round None Visual Sierra (Counting fingers) Right eye Left eye Full Full Extraocular Movement Right eye Left eye Full Full Neuro/Psych Oriented x3: Yes Mood/Affect: Normal Dilation Both eyes: Tropicamide 1%, P henylephrine 2.5% @ 8:34 Slit Lamp Exam Right eye Left eye Lids/Lashes Sessile papillomas l ateral and central lower lid Normal Conjunctiva/Sclera White and quiet White and haris et Cornea Trace punctate epith elial erosions Trace punctate epithelial erosions Anterior Chamber Deep and quiet Deep and quiet Iris Round and reactive Round and judi ctive Lens Posterior chamber in traocular lens, Open posterior capsule Posterior chamber intraocular lens, trace-1+ posterior capsular opacification Vitreous Floaters Posterior vitreo us detachment Fundus Exam Right eye Left eye Disc Normal Normal C/D Ratio 0.25 0.3 Macula Central vitelliform lesion Centr al vitelliform lesion Vessels Normal Normal Periphery Normal Normal Wearing Rx Sphere Cylinder [place] Add Right eye +0.75 +1.25 018 +2.75 Left eye -0.50 +2.25 005 +2.75 Age: 1+ yr Type: Bifocal Manifest Refraction Sphere Cylinder [place] Dist VA Right eye +1.00 +1.25 017 20/30-1 Left eye -0.25 +2.25 177 20/40 Comments: (NI left eye) Care Teams Butcher Supervisor Relationship Specialty Start Date End Date Sheela Storey, SIGNALING PROJECT ENGINEER [address] [place] [phone] PCP - General 12/16/13 documented as of this encounter
--- OUTSIDE RECORDS SUMMARY | 2024-01-12 02:06 | XMS_ITS | Encounter Summary ---
Author Organization [facility] Address [address] [place] [address] Care Team Providers Care Medical Billing Representative Name Role Phone Star Winter MD Primary Care Provider [phone] Sheela Storey APRN Primary Care Provider [phone] Reason for Visit * Reason Comments Other Encounter Details Date Type Department Care Team (Late st Contact Info) Description 12/19/2012 Refill [facility] Family [address] [address] Junior Azevedo PA-C Other Social History Tobacco [...] on file documented as of this encounter Ordered Prescriptions Prescription Sig Dispensed Refills Start Date End Da te ibuprofen (MOTRIN) 600 mg tablet TAKE ONE TABLET BY MOUTH EVERY 8 HOURS NEEDED FOR PAIN 60 Tab 1 12/19/2012 11/14/2014 documented in this encounter Plan of Treatment Upcoming Encounters Date Type Department Care Team (Late st Contact Info) Description 02/03/2024 12:45 EDT Office Visit [facility] Ophthalmology [facility] [address] [place] [address] Goldy Guzman MD [address] [place] [phone] documented as of this encounter Visit Diagnoses Not on filedocumented in this encounter Discontinued Medications Medication Sig Discontinue Reason Start Date End Da te ibuprofen (MOTRIN) 600 mg tablet TAKE 1 TABLET BY MOUTH EVERY 8 HOURS NEEDED FOR PAIN Reorder 11/07/2012 12/19/2012 documented as of this encounter Care Teams Medical Billing Representative Relationship Specialty Start Date End Date Star Winter MD [address] [place] [address] PCP - General 09/22/12 12/15/13 Sheela Storey APRN [address] [place] [phone] PCP - General 12/16/13 documented as of this encounter
--- OUTSIDE RECORDS SUMMARY | 2024-01-12 02:06 | XMS_ITS | Encounter Summary ---
Author Organization [facility] Address [address] [place] [address] Care Team Providers Care Aboriginal Ceremonial Celebrant Name Role Phone Sheela Storey APRN Primary Care Provider [phone] Reason for Visit * Reason Comments Follow-up Patient here for fol low up Yag Capsulotomy right eye. Encounter Details Date Type Department Care Team (Late st Contact Info) Description 07/05/2015 12:45 EST [facility] [address] [place] [address] Goldy Guzman MD [address] [place] [phone] Social History Tobacco Use Types Packs/Day Years [...] visiting a doctor's office or shopping? No 07/05/2015 Cognitive Status Response Date of Assessm ent Because of a physical, menta l, or emotional condition, does this person have serious difficulty concentrating, remembering, or making decisions? No 07/05/2015 documented as of this encounter Progress Notes * Goldy Guzman MD - 07/05/2015 1339 EST Chief Complaint Patient presents with ??? Follow-up Patient here for follow up Yag Capsulotomy right eye. HPI The patient is a 74 y.o. female here for dilated eye exam. She has been having fluctuating vision and tearing in both eyes. She did not experience new floaters. Right Eye: Blurred Vision, Distorted Vision Left Eye: Blurred Vision, Distorted Vision Visual Aid: Current Rx Age Location: Pain: Quality: Severity: Duration: Timing: Lasts: Context: Patient not sure if visoin improved after laser. No pain, no pressure. No flashes or floaters. Eyes seems more wet. Modifying factors: Patient notes if concentrates on one letter they all start to move and things get blurry. Associated Signs & Symptoms: Attestation: ROS Constitutional: NL ENT/Mouth Cardiovascular: Respiratory: Gastrointestinal: Genitourinary: Musculoskeletal: Integumentary: Neurologic: Psychiatric: Endocrine: Hematologic: Immunologic: Decorative Engraver: Exposures: Other: Attestation: Base Eye Exam Visual Acuity (Snellen - Linear) Right Left Dist cc 20/20 -2 20/25 -3 Correction: Glasses Tonometry (Applanation, 13:27) Right Left Pressure 17 14 Pupils Pupils Light APD Right PERRL 3 None Left PERRL 3 None Extraocular Movement Right Left Result Full, Ortho Full, Ortho Neuro/Psych Oriented x3: Yes Mood/Affect: Normal Dilation Both eyes: 1.0% Mydriacyl, 2.5% Phenylephrine @ 13:28 Slit Lamp and Fundus Exam Slit Lamp Exam Right Left Lids/Lashes papillomas lower lid papilloma central upper lid Conjunctiva/Sclera White and quiet, tr staining temp with lissamine green White and quiet, tr. staining with lissamine green Cornea Clear Clear Anterior Chamber Deep and quiet Deep and quiet Iris Round and reactive Round and reactive Lens Posterior chamber intraocular lens, Posterior capsular opening Posterior chamber intraocular lens Fundus Exam Right Left Vitreous Normal Normal Disc Normal Normal C/D Ratio 0.2 0.25 Macula Yellowish RPE change adjacent ot fovea, ? vitelliform lesion Yellowish RPE change adjacent ot fovea, ? vitelliform lesion Vessels Normal Normal Periphery Normal Normal Refraction Wearing Rx Sphere Cylinder [place] Add Right +0.75 +0.75 35 +2.75 Left +0.25 +1.00 170 +2.75 Manifest Refraction Sphere Cylinder [place] Dist Add Right +0.75 +0.75 035 20/20-3 +2.75 Left +0.75 +1.00 180 20/20-3 +2.75 During refraction patient notes letters moving if concentrates on one letter. DIAGNOSTIC TESTS: IMPRESSION & PLAN: 1. Vitelliform Dystrophy, both eyes -Stable from prior exam -Macular OCT obtained prior -Continue at least weekly use of Amsler grid -Return 1 year with OCT macula 2. Pseudophakia, both eyes S/p YAG right eye. Stable, observe 3. Dry eye syndrome, both eyes -Discussed contributing factors -Recommend proactive use of artificial tears 3-4 times daily I have reviewed the patient's past medical, family, social and surgical history. I have also reviewed the patient's medications, allergies, and problem list. I performed my own HPI and have reviewed the tech's ROS as well. I completed this exam personally. Goldy Guzman MD I am scribing for Goldy Guzman MD, while he is personally performing the service. GEM [place] Patient Education Topic: Macular Degeneration Method: Verbal Taught to: Patient Barriers: None Outcomes: independent Signature: Goldy Guzman MD documented in this encounter Plan of Treatment Upcoming Encounters Date Type Department Care Team (Late st Contact Info) Description 02/03/2024 12:45 EDT [facility] [address] [place] [address] Goldy Guzman MD [address] [place] [phone] documented as of this encounter Visit Diagnoses Diagnosis Vitelliform macular dystrophy- Primary Dystrophies primarily involving the retinal pigment epithelium Pseudophakia Lens replaced by other means Dry eye, bilateral documented in this encounter Eye Exam Visual Acuity (Snellen - Linear) Right eye Left eye Dist cc 20/20 -2 20/25 -3 Correction: Glasses Tonometry (Applanation, 13:27) Right eye Left eye Pressure 17 14 Pupils Pupils Light APD Right eye PERRL 3 None Left eye PERRL 3 None Extraocular Movement Right eye Left eye Full, Ortho Full, Ortho Neuro/Psych Oriented x3: Yes Mood/Affect: Normal Dilation Both eyes: 1.0% Mydriacyl, 2 .5% Phenylephrine @ 13:28 Slit Lamp Exam Right eye Left eye Lids/Lashes papillomas lower lid papilloma c entral upper lid Conjunctiva/Sclera White and quiet, tr staining temp with lissamine green White and quiet, tr. staining with lissamine green Cornea Clear Clear Anterior Chamber Deep and quiet Deep and quiet Iris Round and reactive Round and judi ctive Lens Posterior chamber in traocular lens, Posterior capsular opening Posterior chamber intraocular lens Vitreous Normal Normal Fundus Exam Right eye Left eye Disc Normal Normal C/D Ratio 0.2 0.25 Macula Yellowish RPE change adjacent ot fovea, ? vitelliform lesion Yellowish RPE change adjacent ot fovea, ? vitelliform lesion Vessels Normal Normal Periphery Normal Normal Wearing Rx Sphere Cylinder [place] Add Right eye +0.75 +0.75 35 +2.75 Left eye +0.25 +1.00 170 +2.75 Manifest Refraction Sphere Cylinder [place] Dist [place] Add Right eye +0.75 +0.75 035 20/20-3 +2.75 Left eye +0.75 +1.00 180 20/20-3 +2.75 During refraction patient notes letters moving if concentrates on one letter. Care Teams Aboriginal Ceremonial Celebrant Relationship Specialty Start Date End Date Sheela Storey, DEMURRAGE AGENT [address] [address] [place] [address] PCP - General 12/16/13 documented as of this encounter
--- OUTSIDE RECORDS SUMMARY | 2024-01-12 02:06 | XMS_ITS | Encounter Summary ---
Author Organization [facility] Address [address] [place] [address] Care Team Providers Care Punching Machine Operator Name Role Phone Sheela Storey APRN Primary Care Provider [phone] [phone] Encounter Details Date Type Department Care Team (Late st Contact Info) Description 08/18/2018 Historical Results Only [facility] Radiology Results [address] [place] [address] Aguila Juan, [facility] [address] [place], [place] [address] Social History Tobacco Use Types Packs/Day Years [...] Info) Description 02/03/2024 12:45 EDT Office Visit [facility] Ophthalmology [facility] [address] [place] [address] Goldy Guzman MD [address] [place] [address] documented as of this encounter Procedures Procedure Name Priority Date/Time Associated Diagnosis Comments XR FOOT RIGHT 3 OR MORE VIEWS 08/18/2018 9:42 EST documented in this encounter Results * XR FOOT RIGHT 3 OR MORE VIEWS (08/18/2018 9:42 EST) Anatomical Region Laterality Modality Lower Extremities Right Other 08/18/2018 9:42 EST Narrative 08/18/2018 9:45 EST ? EXAM: RADIOLOGY/FOOT RIGHT 3+VIEW ? EX. D/ (0935) ? CLINICAL INFORMATION: ? M20.21 - Hallux rigidus of right foot ? 4 weeks post-op 1st MTP arthrodesis ? INDICATION: M20.21 - Hallux rigidus of right foot, 4 weeks post-op ? 1st MTP arthrodesis 4 WEEK FOLLOW UP CAST REMOVAL/ RECAST ? TECHNIQUE: 3 views right foot. ? COMPARISON: 07/13/2015 ? Findings: ? The patient is status post 1st MTP arthrodesis with a dorsal plate ? and screws. There is no evidence of hardware loosening or failure. ? The bony alignment is anatomic. No acute osseous abnormality is ? detected. Early forefoot osteoarthritis is present. ? REPORT SIGNED IN OTHER VENDOR SYSTEM 08/18/2018 ?Reported By: Bj Howell MD ? CC: Aguila Juan DPM ? Transcribed Date/Time: 08/18/2018 (0945) ? Switch Maker: ? Printed Date/Time: 12/21/2018 (0358) ? PAGE 1 ? Signed Report ? Procedure Note Bj Howell MD - 05/06/2019 EXAM: RADIOLOGY/FOOT RIGHT 3+VIEW EX. D/ (0935) CLINICAL INFORMATION: M20.21 - Hallux rigidus of right foot 4 weeks post-op 1st MTP arthrodesis INDICATION: M20.21 - Hallux rigidus of right foot, 4 weeks post-op 1st MTP arthrodesis 4 WEEK FOLLOW UP CAST REMOVAL/ RECAST TECHNIQUE: 3 views right foot. COMPARISON: 07/13/2015 Findings: The patient is status post 1st MTP arthrodesis with a dorsal plate and screws. There is no evidence of hardware loosening or failure. The bony alignment is anatomic. No acute osseous abnormality is detected. Early forefoot osteoarthritis is present. REPORT SIGNED IN OTHER VENDOR SYSTEM 08/18/2018 Reported By: Bj Howell MD CC: Aguila Juan DPM Transcribed Date/Time: 08/18/2018 (0945) Switch Maker: Printed Date/Time: 12/21/2018 (0358) PAGE 1 Signed Report Aguila Juan DPM IMG DIAGNOSTIC IMAG ING ORDERABLES documented in this encounter Visit Diagnoses Not on filedocumented in this encounter Care Teams Punching Machine Operator Relationship Specialty Start Date End Date Sheela Storey APRN [address] [facility] [address] [place] [phone] PCP - General 12/16/13 documented as of this encounter
--- OUTSIDE RECORDS SUMMARY | 2024-01-12 02:06 | XMS_ITS | Encounter Summary ---
Author Organization [facility] Address [address] [place] [address] Care Team Providers Care Tooling Mechanic Name Role Phone Sheela Storey APRN Primary Care Provider [phone] Reason for Visit * Reason Comments Blurred Vision Did not change glass es from last exam, noticing a fuzziness. Encounter Details Date Type Department Care Team (Late st Contact Info) Description 12/17/2013 10:30 EDT Office Visit [facility] [place] [facility] Ophthalmology [facility] [address] [place] [address] Goldy Guzman MD [address] [place] [phone] Social History Tobacco Use Types Packs/Day Years Used Date Smoking Tobacco: Former Cigarettes Smokeless Tobacco: Never Alcohol Use Standard Drinks/Week Comments Yes 0 (1 standard drink = 0.6 oz pur e alcohol) rare Sex and Gender Information Value Date Recorded Sex Assigned at Not on file Gender Identity Female 10/16/2020 9:54 EDT Sexual Orientation Not on file documented as of this encounter Progress Notes * Goldy Guzman MD - 12/17/2013 1141 EDT Chief Complaint Patient presents with ??? Blurred Vision Did not change glasses from last exam, noticing a fuzziness. HPI The patient is a 73 y.o. female Right Eye: Blurred Vision Left Eye: Blurred Vision Visual Aid: Glasses Current Rx Age Location: Pain: 0 - No pain Quality: Severity: Duration: Timing: Lasts: Context: Pt noticing vision not as clear, did not change glasses from last visit, wondering if she can use same RX because insurance covers once a year. Modifying factors: Associated Signs & Symptoms: Attestation: ROS Constitutional: NL ENT/Mouth Cardiovascular: Respiratory: Gastrointestinal: Genitourinary: Musculoskeletal: Integumentary: Neurologic: Psychiatric: Endocrine: Hematologic: Immunologic: Law Clerk: Exposures: None Other: Attestation: Base Eye Exam Visual Acuity Right Left Dist cc 20/25 -1 20/25 -1 Method: Snellen - Linear Correction: Glasses Neuro/Psych Oriented x3: Yes Mood/Affect: Normal Refraction Final Rx Sphere Cylinder [place] Add Right +0.75 +0.75 035 +2.75 Left +0.25 +1.00 175 +2.75 Comments: Rx from 04/13/13 DIAGNOSTIC TESTS: IMPRESSION & PLAN: 1. Blepharitis, both eyes -mild, R>L -Recommend warm compresses with lid massage to eyelids 2-5 mins twice daily -Artificial tears as needed -return in 6 months for complete exam or sooner PRN 2.Disorder of refraction and accommodation -Give glasses Rx patient???s option to fill (RX from last visit 04/11/14) *For future visits, please use Fluorescein strip & Proparacaine drops to check IOP. (Pt feels that she is sensitive to Fluress drops) I have reviewed the patient's past medical, family, social and surgical history. I have also reviewed the patient's medications, allergies, and problem list. I performed my own HPI and have reviewed the tech's ROS as well. I completed this exam personally. Goldy Guzman MD I am scribing for Goldy Guzman MD, while he is personally performing the service. Moriah Martínez Patient Education Topic: blepharitis, glasses Method: Verbal Taught to: Patient Barriers: None Outcomes: independent Signature: Goldy Guzman MD documented in this encounter Plan of Treatment Upcoming Encounters Date Type Department Care Team (Late st Contact Info) Description 02/03/2024 12:45 EDT Office Visit [facility] [place] [facility] Ophthalmology [facility] [address] [place] [address] Goldy Guzman MD [address] [place] [address] documented as of this encounter Visit Diagnoses Diagnosis Blepharitis, unspecified- Primary Refractive error Unspecified disorder of refraction and accommodation documented in this encounter Discontinued Medications Medication Sig Discontinue Reason Start Date End Da te fluorometholone (FML) 0.1 % ophthalmic suspensionIndications:B lepharitis, unspecified Place 1 Drop into both eyes 3 times daily. Dispense 10 ml bottle - if not available then 5 ml bottle. See comments for allowable substitute. Therapy completed 09/17/2012 12/17/2013 documented as of this encounter Historical Medications * This list may reflect changes made after this encounter. Medication Sig Dispensed Refills Start Date End Date CALCIUM CARBONATE/VITAMIN D3 (VITAMIN D-3 ORAL) Take by mouth daily. added in this encounter Eye Exam Visual Acuity (Snellen - Linear) Right eye Left eye Dist cc 20/25 -1 20/25 -1 Correction: Glasses Neuro/Psych Oriented x3: Yes Mood/Affect: Normal Slit Lamp Exam Right eye Left eye Lids/Lashes trace - 1+ Blepharit is, papillomas lower lid trace Blepharitis Conjunctiva/Sclera White and quiet White and haris et Cornea arcus arcus Anterior Chamber Deep and quiet Deep and quiet Iris Round and reactive Round and judi ctive Lens Posterior chamber in traocular lens Posterior chamber intraocular lens Final Rx Sphere Cylinder [place] Add Right eye +0.75 +0.75 035 +2.75 Left eye +0.25 +1.00 175 +2.75 Comments: Rx from 04/13/13 Care Teams Tooling Mechanic Relationship Specialty Start Date End Date Sheela Storey APRN [address] [facility] [address] [place] [address] PCP - General 12/16/13 documented as of this encounter
--- OUTSIDE RECORDS SUMMARY | 2024-01-12 02:06 | XMS_ITS | Encounter Summary ---
Author Organization [facility] Address [address] [place] [address] Care Team Providers Care Shipping Supervisor Name Role Phone Sheela Storey APRN Primary Care Provider [phone] Reason for Visit * Reason Onset Date Comments Other 01/02/2015 Encounter Details Date Type Department Care Team (Late st Contact Info) Description 01/02/2015 Telephone [facility] Ophthalmology [facility] [address] [place], [place] [phone] Goldy Guzman MD [address] [place] [phone] Other Social History Tobacco Use Types Packs/Day [...] encounter Miscellaneous Notes * Telephone Encounter - Damari Reynolds - 01/02/2015 1334 EDT Patient called to confirm artifical tear drops. Has an equate brand, [facility] brand, and [facility] brand. All are acceptable as long as they don't say get the red out or for redness. * Telephone Encounter - Alena Magallanes - 01/02/2015 1256 EDT She has three different drops and was advised to throw one away but didn't know which one to throw out. Please call her documented in this encounter Plan of Treatment Upcoming Encounters Date Type Department Care Team (Late st Contact Info) Description 02/03/2024 12:45 EDT Office Visit [facility] Ophthalmology [facility] [address] [place] [address] Goldy Guzman MD [address] [place] [phone] documented as of this encounter Visit Diagnoses Not on filedocumented in this encounter Care Teams Shipping Supervisor Relationship Specialty Start Date End Date Sheela Storey APRN [address] [facility] [address] [place] [address] PCP - General 12/16/13 documented as of this encounter
--- OUTSIDE RECORDS SUMMARY | 2024-01-12 02:06 | XMS_ITS | Encounter Summary ---
Author Organization [facility] Address [address] [place] [address] Care Team Providers Care Dump Motor Operator Name Role Phone Star Winter MD Primary Care Provider [phone] Sheela Storey APRN Primary Care Provider [phone] Reason for Visit * Reason Comments Other Encounter Details Date Type Department Care Team (Late Contact Info) Description 05/13/2013 Refill [facility] [address] [place], [place] [address] Magdaleno Jennings MD [facility] [address] [phone] Other Social History Tobacco Use Types Packs/Day [...] encounter Miscellaneous Notes * Telephone Encounter - Juanita Guerin - 05/13/2013 1311 EST No longer using documented in this encounter Plan of Treatment Upcoming Encounters Date Type Department Care Team (Late Contact Info) Description 02/03/2024 12:45 EDT Office Visit [facility] [address] [place], [place] [address] Goldy Guzman MD [address] [place] [phone] documented as of this encounter Visit Diagnoses Not on filedocumented in this encounter Care Teams Dump Motor Operator Relationship Specialty Start Date End Date Star Winter MD [address] [place] [address] PCP - General 09/22/12 12/15/13 Sheela Storey APRN 26 [facility] [address] [place] [address] PCP - General 12/16/13 documented as of this encounter
--- OUTSIDE RECORDS SUMMARY | 2024-01-12 02:06 | XMS_ITS | Encounter Summary ---
Author Organization [facility] Address [address] [place] [address] Care Team Providers Care Receptionist Name Role Phone Sheela Storey APRN Primary Care Provider [phone] Reason for Visit * Reason Comments Eye Flashes And/Or Floaters New floaters in left eye. Encounter Details Date Type Department Care Team (Late st Contact Info) Description 11/22/2015 10:30 EDT Office Visit [facility] Op[facility] [address] [place] [address] Goldy Guzman MD [address] [place] [phone] Social History Tobacco Use Types Packs/Day Years [...] visiting a doctor's office or shopping? No 11/22/2015 Cognitive Status Response Date of Assessm ent Because of a physical, menta l, or emotional condition, does this person have serious difficulty concentrating, remembering, or making decisions? No 11/22/2015 documented as of this encounter Progress Notes * Goldy Guzman MD - 11/22/2015 1143 EDT Chief Complaint Patient presents with ??? Eye Flashes And/Or Floaters New floaters in left eye. HPI The patient is a 75 y.o. female with floaters in the left eye that look like rain drops, darker in color, no flashes of light. Right Eye: Glare or Light Sensitivity, NL Left Eye: Blurred Vision, Floaters Visual Aid: Glasses Current Rx Age 4 years Location: Pain: 0 - No pain Quality: Severity: Duration: Timing: Lasts: Context: 2 days ago she noticed a change in the floaters in left eye. They now look like fluid. Shesaid it looks like raindrops and are darker in color. They move with her eye. Modifying factors: Associated Signs & Symptoms: Attestation: ROS Constitutional: NL ENT/Mouth Cardiovascular: Respiratory: Gastrointestinal: Genitourinary: Musculoskeletal: Integumentary: Neurologic: Psychiatric: Endocrine: Hematologic: Immunologic: Bench Assembly Inspector: Exposures: None Other: Attestation: Base Eye Exam Visual Acuity (Snellen - Linear) Right Left Dist cc 20/20 -2 20/20 -2 Correction: Glasses Tonometry (Applanation, 11:15) Right Left Pressure 16 14 Pupils Pupils Dark APD Right PERRL 3 None Left PERRL 3 None Visual Sierra (Counting fingers) Right Left Result Full Full Extraocular Movement Right Left Result Full Full Neuro/Psych Oriented x3: Yes Mood/Affect: Normal Dilation Both eyes: 1.0% Mydriacyl, 2.5% Phenylephrine @ 11:16 Slit Lamp and Fundus Exam Slit Lamp Exam Right Left Lids/Lashes papillomas lateral and central lower lid Normal Conjunctiva/Sclera White and quiet White and quiet Cornea Clear Clear Anterior Chamber Deep and quiet Deep and quiet Iris Round and reactive Round and reactive Lens Posterior chamber intraocular lens, Open posterior capsule Posterior chamber intraocular lens Fundus Exam Right Left Vitreous floaters Girard's sign negative, Posterior vitreous detachment Disc Normal Normal C/D Ratio 0.25 0.25 Macula Yellowish RPE change adjacent ot fovea, ? vitelliform lesion Yellowish RPE change adjacent ot fovea, ? vitelliform lesion Vessels Normal Normal Periphery Normal no holes or tears with SD 360 deg DIAGNOSTIC TESTS: IMPRESSION & PLAN: 1. Posterior vitreous detachment, left eye No retinal breaks or tears on 360 degree scleral depression -Discussed signs/symptoms of retinal detachment and the patient knows to call/return if they occur -Return 1 year for repeat dilated exam 2. 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 -Continue use of Amsler grid 3. Pseudophakia, both eyes Stable, observe I have [...] the service. RAYMUNDO Coffman Patient Education Topic: PVD Method: Verbal Taught to: Patient Barriers: None Outcomes: independent Signature: Goldy Guzman MD documented in this encounter Plan of Treatment Upcoming Encounters Date Type Department Care Team (Late st Contact Info) Description 02/03/2024 12:45 EDT Office Visit [facility] Ophthalmology [facility] [address] [place] [address] Goldy Guzman MD [address] [place] [phone] documented as of this encounter Visit Diagnoses Diagnosis Posterior vitreous detachment, left- Primary Vitelliform macular dystrophy Dystrophies primarily involving the retinal pigment epithelium Pseudophakia of both eyes Lens replaced by other means documented in this encounter Eye Exam Visual Acuity (Snellen - Linear) Right eye Left eye Dist cc 20/20 -2 20/20 -2 Correction: Glasses Tonometry (Applanation, 11:15) Right eye Left eye Pressure 16 14 Pupils Pupils Dark APD Right eye PERRL 3 None Left eye PERRL 3 None Visual [place] (Counting fingers) Right eye Left eye Full Full Extraocular Movement Right eye Left eye Full Full Neuro/Psych Oriented x3: Yes Mood/Affect: Normal Dilation Both eyes: 1.0% Mydriacyl, 2 .5% Phenylephrine @ 11:16 Slit Lamp Exam Right eye Left eye Lids/Lashes papillomas lateral a nd central lower lid Normal Conjunctiva/Sclera White and quiet White and haris et Cornea Clear Clear Anterior Chamber Deep and quiet Deep and quiet Iris Round and reactive Round and judi ctive Lens Posterior chamber in traocular lens, Open posterior capsule Posterior chamber intraocular lens Vitreous floaters Melinda's sign ne gative, Posterior vitreous detachment Fundus Exam Right eye Left eye Disc Normal Normal C/D Ratio 0.25 0.25 Macula Yellowish RPE change adjacent ot fovea, ? vitelliform lesion Yellowish RPE change adjacent ot fovea, ? vitelliform lesion Vessels Normal Normal Periphery Normal no holes or tear s with SD 360 deg Care Teams Receptionist Relationship Specialty Start Date End Date Sheela Storey, CLAIM SPECIALIST [address] [place] [address] PCP - General 12/16/13 documented as of this encounter
--- OUTSIDE RECORDS SUMMARY | 2024-01-12 02:06 | XMS_ITS | Encounter Summary ---
Author Organization [facility] Address [address] [place] [address] Care Team Providers Care University Registrar Name Role Phone Sheela Storey APRN Primary Care Provider [phone] Encounter Details Date Type Department Care Team (Late st Contact Info) Description 12/19/2020 Lab Requisition [facility] Pathology & Laboratory Medicine - [facility] [address] [place] [address] Outr Resulting Lab, Provider Social History Tobacco Use Types Packs/Day Years [...] Info) Description 02/03/2024 12:45 EDT Office Visit [facility] Ophthalmology [facility] [address] [place] [address] Goldy Guzman MD [address] [place] [address] documented as of this encounter Procedures Procedure Name Priority Date/Time Associated Diagnosis Comments SPEP, INCLUDES QUANTITATION OF MONOCLONAL SPIKE PERFORMABLE Today 12/19/2020 8:40 EDT SPEP, INCLUDES QUANTITATION OF MONOCLONAL SPIKE Routine 12/19/2020 8:40 EDT PROTEIN, TOTAL Today 12/19/2020 8:40 EDT documented in this encounter Results * (ABNORMAL) SPEP, INCLUDES QUANTITATION OF MONOCLONAL SPIKE PERFORMABLE (12/19/2020 8:40 EDT) Albumin % 66.6(H) 55.8 - 66.1 % 12/20/2020 13:32 [facility] Alpha-1 % 4.4 2.9 - 4.9 % 12/20/2020 13:32 [facility] Alpha-2 % 10.6 7.1 - 11.8 % 12/20/2020 13:32 [facility] Beta % 9.9 8.4 - 13.1 % 12/20/2020 13:32 [facility] Gamma % 8.5(L) 11.1 - 18.8 % 12/20/2020 13:32 [facility] SPEP Comment No apparent monoclonal protein seen on serum electrophoresis 12/20/2020 13:32 [facility] Comment:See scanned/suppleme ntary report. Total Protein 5.8(L) 6.3 - 8.2 g/dL 12/20/2020 13:32 [facility] Blood VENOUS BLOOD / Unknown 12/19/2020 8:40 EDT 12/19/2020 15:53 EDT Provider Outr Resulting Lab CHEMISTRY & BLOOD GAS ORDERABLES [facility] [address] [place] [address] * PROTEIN, TOTAL (12/19/2020 8:40 EDT) Blood VENOUS BLOOD / Unknown 12/19/2020 8:40 EDT 12/19/2020 15:53 EDT Provider Outr Resulting Lab CHEMISTRY & BLOOD GAS ORDERABLES Performing Organization Address [facility] Co de Phone Number [facility] [address] [place] [address] documented in this encounter Visit Diagnoses Not on filedocumented in this encounter Care Teams University Registrar Relationship Specialty Start Date End Date Sheela Storey APRN [address] [place] [address] PCP - General 12/16/13 documented as of this encounter
--- OUTSIDE RECORDS SUMMARY | 2024-01-12 02:06 | XMS_ITS | Encounter Summary ---
Author Organization [facility] Address [address] [place] [address] Care Team Providers Care Account Retention Representative Name Role Phone Sheela Storey APRN Primary Care Provider [phone] Reason for Visit * Reason Onset Date Comments Eye Problem 04/24/2015 Encounter Details Date Type Department Care Team (Late st Contact Info) Description 04/24/2015 Telephone [facility] Ophthalmology - [place] [address] [place], [place] [address] Goldy Guzman MD [address] [place] [phone] Eye Problem Social History Tobacco Use Types Packs/Day Years [...] * Telephone Encounter - Damari Reynolds - 04/24/2015 1106 EDT Spoke to patient who notes that she has sudden blurred vision, mostly right eye x2 weeks. Couldn't fine amsler grid. Notes no pain, no pressure. Did use a nasal spray. Has had some itching. * Telephone Encounter - Alena Magallanes - 04/24/2015 1043 EDT She noticed last week or weekend before that her vision has gotten very blurry. Was using nasal spray and her pcp didn't know if that was causing her blurry vision. She was just here in october of this year and supposed to Come back next october. Please call her documented in this encounter Plan of Treatment Upcoming Encounters Date Type Department Care Team (Late st Contact Info) Description 02/03/2024 12:45 EDT Office Visit [facility] Ophthalmology [facility] [address] [place] [address] Goldy Guzman MD [address] [place] [phone] documented as of this encounter Visit Diagnoses Not on filedocumented in this encounter Care Teams Account Retention Representative Relationship Specialty Start Date End Date Sheela Storey APRN [address] [place] [phone] PCP - General 12/16/13 documented as of this encounter
--- OUTSIDE RECORDS SUMMARY | 2024-01-12 02:06 | XMS_ITS | Encounter Summary ---
Author Organization [facility] Address [address] [place] [address] Care Team Providers Care Pantry Goods Worker Name Role Phone Sheela Storey APRN Primary Care Provider [phone] Encounter Details Date Type Department Care Team (Late st Contact Info) Description 08/19/2019 Results Only Imaging [facility] Cardiology Clinic [address] [place] [address] Pranav Peng PA-C [address] [place] [address] Social History Tobacco Use Types Packs/Day Years [...] Office Visit [facility] Ophthalmology [address] [address] Goldy Guzman MD [address] [place] [address] documented as of this encounter Procedures Procedure Name Priority Date/Time Associated Diagnosis Comments EKG 12-LEAD 08/19/2019 12:56 EST documented in this encounter Results * EKG 12-LEAD (08/19/2019 12:56 EST) 08/19/2019 12:5 6 EST Narrative [facility] - 08/19/2019 12:56 EST ? [facility] ? Test Date: ?2019-08-19 12:56:49 Pat Name: ? RANDI OSWALD ?Department: ?Room: ? Gender: ? F ?Floor Scrubber: ?? MLB : ?1940 ? Requested By: Order Number: ?Reading : ?? Jodie Loyd ? Measurements Intervals ?[place] ? Rate: ? 67 ? P: ?65 OH: ? 206 ?QRS: ?112 QRSD: ? 124 ?T: ?50 QT: ? 426 ? QTc: ?450 ? Interpretive Statements Normal sinus rhythm RBBB Left posterior fascicular block Abnormal ECG No previous ECG available for comparison Electronically Signed On 08-19-2019 15:42:54 EST by Jodie Loyd [email or web address] Procedure Note Jodie Loyd MD - 08/19/2019 [facility] Test Date: 2019-08-19 12:56:49 Pat Name: RANDI OSWALD Department: Room: Gender: F Floor Scrubber: IONA : 1940 Requested By: Order Number: Reading MD: Jodie Loyd Measurements Intervals Cromwell Rate: 67 P: 65 OH: 206 QRS: 112 QRSD: 124 T: 50 QT: 426 QTc: 450 Interpretive Statements Normal sinus rhythm RBBB Left posterior fascicular block Abnormal ECG No previous ECG available for comparison Electronically Signed On 08-19-2019 15:42:54 EST by Jodie Loyd [email or web address] Pranav Peng PA-C CARDIAC ECG ORDERABL ES [facility] documented in this encounter Visit Diagnoses Not on filedocumented in this encounter Care Teams Pantry Goods Worker Relationship Specialty Start Date End Date Sheela Storey APRN [address] [place] [phone] PCP - General 12/16/13 documented as of this encounter
--- OUTSIDE RECORDS SUMMARY | 2024-01-12 02:06 | XMS_ITS | Encounter Summary ---
Author Organization [facility] Address [address] [place] [address] Care Team Providers Care Tattoo Designer Name Role Phone Sheela Storey APRN Primary Care Provider [phone] Reason for Visit * Reason Onset Date Comments Eye Flashes And/Or Floaters 11/21/2015 Encounter Details Date Type Department Care Team (Late st Contact Info) Description 11/21/2015 Telephone [facility] [address] [place] [address] Goldy Guzman MD [address] [place] [phone] Eye Flashes And/Or Floaters Social History Tobacco Use Types Packs/Day Years [...] No 11/06/2015 documented as of this encounter Miscellaneous Notes * Telephone Encounter - Damari Reynolds - 11/21/2015 1638 EDT Spoke with patient she is noticing changes in her floaters left eye. Notes looks like its wet or water in left eye. No new flashes. No pain, no pressure, no vision changes. Patient is concerned that things are changing and wants to be seen sooner than 12/12. Gave patient appointment for 11/22/15 @ 10:30. * Telephone Encounter - Ivanna Nagel - 11/21/2015 1427 EDT Patient has floaters and floater like things that don't move, in her eye. Would like to talk to tech. Thank you. documented in this encounter Plan of Treatment Upcoming Encounters Date Type Department Care Team (Late st Contact Info) Description 02/03/2024 12:45 EDT Office Visit [facility] Ophthalmology [facility] [address] [place] [address] Goldy Guzman MD [address] [place] [address] documented as of this encounter Visit Diagnoses Not on filedocumented in this encounter Care Teams Tattoo Designer Relationship Specialty Start Date End Date Sheela Storey APRN [address] [place] [address] PCP - General 12/16/13 documented as of this encounter
--- OUTSIDE RECORDS SUMMARY | 2024-01-12 02:06 | XMS_ITS | Encounter Summary ---
Author Organization [facility] Address [address] [place] [address] Care Team Providers Care Security Systems Technician Name Role Phone Star Winter MD Primary Care Provider [phone] Reason for Visit * Reason Comments Follow-up Follow up on her Ble pharitis and complete exam. She isnt having any problems today. Encounter Details Date Type Department Care Team (Late st Contact Info) Description 04/13/2013 14:15 EDT Office Visit [facility] Ophthalmology [facility] [address] [place] [address] Goldy Guzman MD [address] [place] [phone] Social History Tobacco Use Types Packs/Day Years [...] Progress Notes * Goldy Guzman MD - 04/13/2013 1516 EDT Chief Complaint Patient presents with ??? Follow-up Follow up on her Blepharitis and complete exam. She isnt having any problems today. HPI The patient is a 72 y.o. female Right Eye: Tearing Left Eye: Tearing Visual Aid: Glasses Current Rx Age (Around 5 years old.) Location: Pain: 0 - No pain Quality: Severity: Duration: Timing: Lasts: Context: Modifying factors: Associated Signs & Symptoms: Attestation: ROS Constitutional: NL ENT/Mouth Cardiovascular: High Blood Pressure Respiratory: Gastrointestinal: Genitourinary: Musculoskeletal: Integumentary: Neurologic: Psychiatric: Endocrine: Hematologic: Immunologic: Compounding Technician: Exposures: None Other: Attestation: Base Eye Exam Visual Acuity Right Left Dist cc 20/25 +2 20/30 +2 Dist ph cc 20/20-3 20/25-2 Near cc J1+ J1+ Method: Snellen - Linear Correction: Glasses Tonometry Right Left Pressure 14 17 Method: Applanation Time: 15:30 Pupils Pupils Dark APD Right PERRL 2 None Left PERRL 2 None Visual Sierra Right Left Result Full Full Method: Counting fingers Extraocular Movement Right Left Result Full Full Neuro/Psych Oriented x3: Yes Mood/Affect: Normal Dilation Both eyes: 1.0% Mydriacyl, 2.5% Phenylephrine @ 15:32 Slit Lamp and Fundus Exam Slit Lamp Exam Right Left Lids/Lashes trace Meibomian gland dysfunction trace Meibomian gland dysfunction Conjunctiva/Sclera White and quiet White and quiet Cornea Clear Clear Anterior Chamber Deep and quiet Deep and quiet Iris Round and reactive Round and reactive Lens Posterior chamber intraocular lens Posterior chamber intraocular lens Vitreous Normal Normal Fundus Exam Right Left Disc Normal Normal C/D Ratio 0.3 0.3 Macula Normal Normal Vessels Normal Normal Periphery Normal Normal Refraction Wearing Rx Sphere Cylinder [place] Add Right +0.25 +0.75 035 +2.75 Left -0.25 +1.00 170 +2.75 Age: 7yrs Type: Bifocal Manifest Refraction (Auto) Sphere Cylinder [place] Dist Add Near Right -1.50 +2.00 030 20/25 Left Manifest Refraction #2 Sphere Cylinder [place] Dist Add Near Right +0.75 +0.75 035 20/20 +2.75 J1+ Left +0.25 +1.00 170 20/20 +2.75 J1+ Comments: I couldn't get a left eye reading, Her pupils are very small. Final Rx Sphere Cylinder [place] Add Right +0.75 +0.75 035 +2.75 Left +0.25 +1.00 170 +2.75 Type: Bifocal DIAGNOSTIC TESTS: IMPRESSION & PLAN: 1. Blepharitis, both eyes -improved -Recommend warm compresses with lid massage to eyelids 2-5 mins daily for maintenance -just finished Doxycycline in the last 3 weeks -Artificial tears as needed 2. Pseudophakia- -Doing well Return 1 year I have reviewed the patient's past medical, family, social and surgical history. I have also reviewed the patient's medications, allergies, and problem list. I performed my own HPI and have reviewed the tech's ROS as well. I personally completed this exam myself. Goldy Guzman MD I am scribing for Goldy Guzman MD, while he is personally performing the service. Taty Mendez Patient Education Topic: blurred vision Method: Verbal Taught to: Patient Barriers: None Outcomes: independent Signature: Goldy Guzman MD documented in this encounter Plan of Treatment Upcoming Encounters Date Type Department Care Team (Late st Contact Info) Description 02/03/2024 12:45 EDT Office Visit [facility] Ophthalmology [address] [address] Goldy Guzman MD [address] [place] [phone] documented as of this encounter Visit Diagnoses Diagnosis Blepharitis- Primary Blepharitis, unspecified Pseudophakia Lens replaced by other means documented in this encounter Eye Exam Visual Acuity (Snellen - Linear) Right eye Left eye Dist cc 20/25 +2 20/30 +2 Dist ph cc 20/20-3 20/25-2 Near cc J1+ J1+ Correction: Glasses Tonometry (Applanation, 15:30) Right eye Left eye Pressure 14 17 Pupils Pupils Dark APD Right eye PERRL 2 None Left eye PERRL 2 None Visual Sierra (Counting fingers) Right eye Left eye Full Full Extraocular Movement Right eye Left eye Full Full Neuro/Psych Oriented x3: Yes Mood/Affect: Normal Dilation Both eyes: 1.0% Mydriacyl, 2 .5% Phenylephrine @ 15:32 Slit Lamp Exam Right eye Left eye Lids/Lashes trace Meibomian gland dysfunctio n trace Meibomian gland dysfunction Conjunctiva/Sclera White and quiet White and haris et Cornea Clear Clear Anterior Chamber Deep and quiet Deep and quiet Iris Round and reactive Round and judi ctive Lens Posterior chamber in traocular lens Posterior chamber intraocular lens Vitreous Normal Normal Fundus Exam Right eye Left eye Disc Normal Normal C/D Ratio 0.3 0.3 Macula Normal Normal Vessels Normal Normal Periphery Normal Normal Wearing Rx Sphere Cylinder [place] Add Right eye +0.25 +0.75 035 +2.75 Left eye -0.25 +1.00 170 +2.75 Age: 7yrs Type: Bifocal Manifest Refraction #1 (Auto) Sphere Cylinder [place] Dist VA Add Near VA Right eye -1.50 +2.00 030 20/25 Left eye Manifest Refraction #2 Sphere Cylinder [place] Dist VA Add Near VA Right eye +0.75 +0.75 035 20/20 +2.75 J1+ Left eye +0.25 +1.00 170 20/20 +2.75 J1+ Manifest Refraction Comments I couldn't get a left eye reading, Her pupils are very small. Final Rx Sphere Cylinder [place] Add Right eye +0.75 +0.75 035 +2.75 Left eye +0.25 +1.00 170 +2.75 Type: Bifocal Care Teams Security Systems Technician Relationship Specialty Start Date End Date Star Winter MD [address] [place] [address] PCP - General 09/22/12 12/15/13 documented as of this encounter
--- OUTSIDE RECORDS SUMMARY | 2024-01-12 02:06 | XMS_ITS | Encounter Summary ---
Author Organization [facility] Address [address] [place] [address] Care Team Providers Care Aircraft Refueler Name Role Phone Sheela Storey APRN Primary Care Provider [phone] Encounter Details Date Type Department Care Team (Late st Contact Info) Description 09/15/2018 Historical Results Only [facility] Radiology Results [address] [place] [address] [place], [facility] [address] [place], [place] [address] Social History Tobacco Use Types Packs/Day Years [...] 02/03/2024 12:45 EDT Office Visit [facility] Ophthalmology [facility] [address] [place] [address] Goldy Guzman MD [address] [place] [address] documented as of this encounter Procedures Procedure Name Priority Date/Time Associated Diagnosis Comments XR FOOT RIGHT 3 OR MORE VIEWS 09/15/2018 10:49 EDT documented in this encounter Results * XR FOOT RIGHT 3 OR MORE VIEWS (09/15/2018 10:49 EDT) Anatomical Region Laterality Modality Lower Extremities Right Other 09/15/2018 10:4 9 EDT Narrative 09/15/2018 10:52 EDT ? EXAM: RADIOLOGY/FOOT RIGHT 3+VIEW ? EX. D/ (1003) ? CLINICAL INFORMATION: ? 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 FOOT RIGHT 3+VIEW ? 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 Comparison: 08/18/2018, 07/13/2015. ? FINDINGS: ? Right foot: 3 views were performed. The patient is status post 1st ? MTP arthrodesis. The plate and screw construct is in stable position ? without evidence of loosening or failure. There is possible early ? evidence of bony fusion of the 1st MTP joint. No acute fracture is ? identified. Mild degenerative changes are scattered throughout the ? remainder of the foot. The soft tissues about the forefoot remain ? mildly swollen. ? IMPRESSION: ? Satisfactory appearance post 1st MTP arthrodesis. ? REPORT SIGNED IN OTHER VENDOR SYSTEM 09/15/2018 ?Reported By: Zaki Leone MD ? CC: ? Transcribed Date/Time: 09/15/2018 (1052) ? Business Services Manager: ? Printed Date/Time: 12/21/2018 (2286) ? PAGE 1 ? Signed Report ? Procedure Note Zaki Leone MD, MD - 05/06/2019 EXAM: RADIOLOGY/FOOT RIGHT 3+VIEW EX. 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 FINDINGS: Right foot: 3 views were performed. The patient is status post 1st MTP arthrodesis. The plate and screw construct is in stableposition without evidence of loosening or failure. There is possible early evidence of bony fusion of the 1st MTP joint. No acute fracture is identified. Mild degenerative changes are scattered throughout the remainder of the foot. The soft tissues about the forefoot remain mildly swollen. IMPRESSION: Satisfactory appearance post 1st MTP arthrodesis. REPORT SIGNED IN OTHER VENDOR SYSTEM 09/15/2018 Reported By: Zaki Leone MD CC: Transcribed Date/Time: 09/15/2018 (1052) Business Services Manager: Printed Date/Time: 12/21/2018 (8118) PAGE 1 Signed Report Aguila Jaun DPM IMG DIAGNOSTIC IMAG ING ORDERABLES documented in this encounter Visit Diagnoses Not on filedocumented in this encounter Care Teams Aircraft Refueler Relationship Specialty Start Date End Date Sheela Storey APRN [address] [facility] [address] [place] [phone] PCP - General 12/16/13 documented as of this encounter
--- OUTSIDE RECORDS SUMMARY | 2024-01-12 02:06 | XMS_ITS | Encounter Summary ---
Author Organization [facility] Address [address] [place] [address] Care Team Providers Care Security Flex Utility Officer Name Role Phone Sheela Storey APRN Primary Care Provider [phone] Reason for Visit * Reason Comments Eye Exam Complete exam for Vi telliform macular dystrophy -both eyes, PCO and PVD - Left eye Encounter Details Date Type Department Care Team (Late st Contact Info) Description 01/21/2023 9:00 EDT Office Visit [facility] Ophthalmology [facility] [address] [place] [address] Goldy Guzman MD [address] [place] [phone] Social History Tobacco Use Types Packs/Day Years [...] Progress Notes * Goldy Guzman MD - 01/21/2023 0900 EDT Chief Complaint Patient presents with ??? Eye Exam Complete exam for Vitelliform macular dystrophy -both eyes, PCO and PVD - Left eye HPI The patient is a 82 y.o. female here for follow up of vitelliform dystrophy/Posterior capsular opacification. She reports vision seems worse for both near & far. She has no eye pain, double vision, or new flashes/floaters. Right Eye: Blurred Vision, Tearing Left Eye: Blurred Vision, Tearing Visual Aid: Glasses Current Rx Age Location: Pain: 0 - No pain Quality: Severity: Duration: Timing: Lasts: Context: She reports vision seems a little worse. When reading the words move around. She reports she checks the amsler grid and the lines are always wavy. No flashes, floaters, or pain in the eyes. Modifying factors: Associated Signs & Symptoms: Attestation: ROS Constitutional: NL ENT/Mouth NL Cardiovascular: High Blood Pressure Respiratory: NL Gastrointestinal: NL Genitourinary: NL Musculoskeletal: NL Integumentary: NL Neurologic: NL Psychiatric: NL Endocrine: NL Hematologic: NL Immunologic: Drug Allergy Industrial Conveyor Belt Repairer: Exposures: None Other: Attestation: Base Eye Exam Visual Acuity (Snellen - Linear) Right Left Dist cc 20/50 -2 20/60 -2 Near cc J2 J2 Correction: Glasses Tonometry (Applanation, 9:37) Right Left Pressure 14 12 Pupils Pupils Dark APD Right PERRL 2 None Left PERRL 2 None Visual Sierra (Counting fingers) Right Left Full Full Extraocular Movement Right Left Ortho Ortho -- -- -- -- -- -- -- -- -- -- -- -- -- -- -- -- Neuro/Psych Oriented x3: Yes Mood/Affect: Normal Dilation Both eyes: Tropicamide 1%, Phenylephrine 2.5% @ 9:37 Slit Lamp and Fundus Exam Slit Lamp Exam Right Left Lids/Lashes Sessile papillomas lateral and central lower lid Normal Conjunctiva/Sclera White and quiet White and quiet Cornea Clear Clear Anterior Chamber Deep and quiet Deep and quiet Iris Round and reactive Round and reactive Lens Posterior chamber intraocular lens, Open posterior capsule Posterior chamber intraocular lens,1-2+ posterior capsular opacification Fundus Exam Right Left Vitreous Floaters Posterior vitreous detachment Disc Normal Normal C/D Ratio 0.25 0.25 Macula Central RPE irregularity Central RPE irregularity Vessels Normal Normal Periphery Normal Normal Refraction Wearing Rx Sphere Cylinder Velpen Add Right +0.75 +1.25 018 +2.75 Left -0.50 +2.25 005 +2.75 Age: 5yrs Type: Bifocal Manifest Refraction Sphere Cylinder Velpen Dist VA Right +0.75 +0.75 018 NI Left Gilson +2.25 178 NI DIAGNOSTIC TESTING/PROCEDURES: OCT, Retina - OU - Both Eyes Indication: Vitelliform Macular Dystrophy OCT macula: Right: signal strength: 10/10, normal foveal contour, subfoveal RPE irregularity, no intra/subretinal fluid Left: signal strength: 9/10, normal foveal contour, subfoveal RPE irregularity, no intra/subretinalfluid IMPRESSION & PLAN: 1. Adult-onset Vitelliform macular Dystrophy, both eyes No significant change this year. -Continue use of Amsler grid -Call with changes in the vision/new distortion on grid -Return in 1 year for complete & OCT-Mac 2. Posterior capsular opacification, left eye -not visually significant -monitor 3. Posterior vitreous detachment, left eye Stable, monitor periodically I have reviewed the patient's past medical, family, social and surgical history. I have also reviewed the patient's medications, allergies, and problem list. I performed my own history and have reviewed the tech's ROS as well. I completed this exam personally. Goldy Guzman MD I am scribing for Goldy Guzman MD, while he is personally performing the service. RAYMUNDO Coffman documented in this encounter Plan of Treatment Upcoming Encounters Date Type Department Care Team (Late st Contact Info) Description 02/03/2024 12:45 EDT Office Visit [facility] Ophthalmology - [place] [address] [place] [address] Goldy Guzman MD [address] [place] [phone] documented as of this encounter Procedures Procedure Name Priority Date/Time Associated Diagnosis Comments OCT, RETINA - OU - BOTH EYES Routine 01/21/2023 10:36 EDT Vitelliform macular dystrophy documented in this encounter Results * OCT, RETINA - OU - BOTH EYES (01/21/2023 10:36 EDT) Narrative [facility] OPHTHALMOLOGY - 01/21/2023 10:36 EDT Indication: Vitelliform Macular Dystrophy OCT macula: Right: signal strength: 10/10, normal foveal contour, subfoveal RPE irregularity, no intra/subretinal fluid Left: signal strength: 9/10, normal foveal contour, subfoveal RPE irregularity, no intra/subretinal fluid Goldy Guzman MD OPHTH TOMOGRAPHY [facility] OPHTHALMOLOGY documented in this encounter Visit Diagnoses Diagnosis Vitelliform macular dystrophy- Primary Dystrophies primarily involving the retinal pigment epithelium PCO (posterior capsular opacification), left After-cataract, unspecified Posterior vitreous detachment, left eye Vitreous degeneration documented in this encounter Eye Exam Visual Acuity (Snellen - Linear) Right eye Left eye Dist cc 20/50 -2 20/60 -2 Near cc J2 J2 Correction: Glasses Tonometry (Applanation, 9:37) Right eye Left eye Pressure 14 12 Pupils Pupils Dark APD Right eye PERRL 2 None Left eye PERRL 2 None Visual Sierra (Counting fingers) Right eye Left eye Full Full Extraocular Movement Right eye Left eye Ortho Ortho Up gaze -- -- -- -- -- -- Right/left gaze -- -- -- -- -- -- Down gaze -- -- -- -- -- -- Neuro/Psych Oriented x3: Yes Mood/Affect: Normal Dilation Both eyes: Tropicamide 1%, P henylephrine 2.5% @ 9:37 Slit Lamp Exam Right eye Left eye Lids/Lashes Sessile papillomas l ateral and central lower lid Normal Conjunctiva/Sclera White and quiet White and haris et Cornea Clear Clear Anterior Chamber Deep and quiet Deep and quiet Iris Round and reactive Round and judi ctive Lens Posterior chamber in traocular lens, Open posterior capsule Posterior chamber intraocular lens, 1-2+ posterior capsular opacification Fundus Exam Right eye Left eye Posterior Vitreous Floaters Posterior vit reous detachment Disc Normal Normal C/D Ratio 0.25 0.25 Macula Central RPE irregularity Central RPE irregularity Vessels Normal Normal Periphery Normal Normal Wearing Rx Sphere Cylinder Velpen Add Right eye +0.75 +1.25 018 +2.75 Left eye -0.50 +2.25 005 +2.75 Age: 5yrs Type: Bifocal Manifest Refraction Sphere Cylinder Velpen Dist VA Right eye +0.75 +0.75 018 NI Left eye Gilson +2.25 178 NI Care Teams Security Flex Utility Officer Relationship Specialty Start Date End Date Sheela Storey, STOCKROOM SELECTOR [address] [place] [phone] PCP - General 12/16/13 documented as of this encounter
--- OUTSIDE RECORDS SUMMARY | 2024-01-12 02:06 | XMS_ITS | Encounter Summary ---
Author Organization [facility] Address [address] [place] [address] Care Team Providers Care Photography Spotter Name Role Phone Sheela Storey APRN Primary Care Provider [phone] Encounter Details Date Type Department Care Team (Latest Contact Info) Description 10/16/2020 Travel Social History Tobacco Use Types Packs/Day Years [...] 9:54 EDT Sexual Orientation Not on file COVID-19 Exposure Response Date Recorded In the last month, have you been in contact with someone who was confirmed or suspected to have Coronavirus / COVID-19? No / Unsure 10/16/2020 9:16 EDT documented as of this encounter Functional Status [...] Info) Description 02/03/2024 12:45 EDT Office Visit [facility] Ophthalmology [facility] [address] [place] [address] Goldy Guzman MD [address] [place] [phone] documented as of this encounter Visit Diagnoses Not on filedocumented in this encounter Care Teams Photography Spotter Relationship Specialty Start Date End Date Sheela Storey APRN [address] [place] [address] PCP - General 12/16/13 documented as of this encounter
--- OUTSIDE RECORDS SUMMARY | 2024-01-12 02:06 | XMS_ITS | Encounter Summary ---
Author Organization [facility] Address [address] [place] [address] Care Team Providers Care Investigative Analyst Name Role Phone Star Winter MD Primary Care Provider [phone] Sheela Storey APRN Primary Care Provider [phone] Reason for Visit * Reason Comments Other Encounter Details Date Type Department Care Team (Late Contact Info) Description 11/07/2012 Refill [facility] Family [address] [phone] Star Vasquez MD [address] [place] [address] Other Social History Tobacco Use Types Packs/Day [...] HOURS NEEDED FOR PAIN 60 Tab 1 11/07/2012 12/19/2012 documented in this encounter Plan of Treatment Upcoming Encounters Date Type Department Care Team (Late Contact Info) Description 02/03/2024 12:45 EDT Office Visit [facility] Ophthalmology [facility] [address] [place], [place] [address] Goldy Guzman MD [address] [place] [address] documented as of this encounter Visit Diagnoses Not on filedocumented in this encounter Discontinued Medications Medication Sig Discontinue Reason Start Date End Da te ibuprofen (MOTRIN) 600 mg tablet Take 1 Tab by mouth every 8 hours as needed for Pain. Reorder 12/16/2011 11/07/2012 documented as of this encounter Care Teams Investigative Analyst Relationship Specialty Start Date End Date Star Winter MD [address] [place] [address] PCP - General 09/22/12 12/15/13 Sheela Storey APRN 26 [facility] [address] [place] [address] PCP - General 12/16/13 documented as of this encounter
--- OUTSIDE RECORDS SUMMARY | 2024-01-12 02:06 | XMS_ITS | Encounter Summary ---
Author Organization [facility] Address [address] [place] [address] Care Team Providers Care Assembler Piano Name Role Phone Sheela Storey APRN Primary Care Provider [phone] Reason for Visit * Reason Comments Blurred Vision Encounter Details Date Type Department Care Team (Late st Contact Info) Description 11/14/2014 10:15 EDT Office Visit [facility] Ophthalmology [facility] [address] [place] [address] Goldy Guzman MD [address] [place] [phone] Social History Tobacco Use Types Packs/Day Years [...] Progress Notes * Goldy Guzman MD - 11/14/2014 1156 EDT Chief Complaint Patient presents with ??? Blurred Vision HPI The patient is a 74 y.o. female feels her vision is blurred at distance. She has no pain in the eyes. Right Eye: Blurred Vision Left Eye: Blurred Vision Visual Aid: Glasses Current Rx Age Location: Pain: 0 - No pain Quality: Severity: Duration: Timing: Lasts: Context: Has noticed a decrease in vision. Modifying factors: Associated Signs & Symptoms: Attestation: ROS Constitutional: NL ENT/Mouth Cardiovascular: Respiratory: Gastrointestinal: Genitourinary: Musculoskeletal: Integumentary: Neurologic: Psychiatric: Endocrine: Hematologic: Immunologic: Crystallizer Operator: Exposures: None Other: Attestation: Base Eye Exam Visual Acuity (Snellen - Linear) Right Left Dist cc 20/20 -2 20/20 -1 Near cc J1+ J1+ Correction: Glasses Tonometry (Applanation, 10:46) Right Left Pressure 14 14 Pupils Pupils Dark APD Right PERRL 2 None Left PERRL 2 None Visual Sierra (Counting fingers) Right Left Result Full Full Extraocular Movement Right Left Result Full Full Neuro/Psych Oriented x3: Yes Mood/Affect: Normal Dilation Both eyes: 1.0% Mydriacyl @ 10:46 Refraction Wearing Rx Sphere Cylinder [place] Add Right +0.75 +0.75 033 +2.75 Left +0.25 +1.00 173 +2.75 Type: Bifocal Manifest Refraction Sphere Cylinder [place] Dist Add Right +1.00 +0.50 040 20/20 +2.75 Left [place]bourne +1.50 005 20/20 +2.75 Final Rx Sphere Cylinder [place] Add Right +1.00 +0.50 040 +2.75 Left [place] +1.50 005 +2.75 DIAGNOSTIC TESTS: Indication: Vitelliform lesion Fundus/disc photo: Consistent with examination from today, of sufficient quality to use for future comparison. Increased autofluorescence centrally in both eyes, there is also an area of increased autofluorescence inferior macula in right eye. IMPRESSION & PLAN: 1. Vitelliform Degeneration, both eyes vs macular degeneration, looks very symmetric and increased autofluorescence -fundus photos obtained -Recommend at least weekly use of Amsler grid and demonstrated its use. 2. Blepharitis, both eyes -continue warm compresses with lid massage to eyelids 2-5 mins twice daily -continue Artificial tears as needed 3.Disorder of refraction and accommodation -Give glasses Rx [...] while he is personally performing the service. Di Chapman Patient Education Topic: blurred vision Method: Verbal Taught to: Patient Barriers: None Outcomes: independent Signature: Goldy Guzman MD documented in this encounter Plan of Treatment Upcoming Encounters Date Type Department Care Team (Late st Contact Info) Description 02/03/2024 12:45 EDT Office Visit [facility] Ophthalmology [address] [address] Goldy Guzman MD [address] [place] [phone] documented as of this encounter Visit Diagnoses Diagnosis Vitelliform macular dystrophy- Primary Dystrophies primarily involving the retinal pigment epithelium Blepharitis Blepharitis, unspecified Unspecified disorder of refraction and accommodation documented in this encounter Discontinued Medications Medication Sig Discontinue Reason Start Date End Da te doxycycline (MONODOX) 100 mg capsule Take 1 Cap by mouth at bedtime. Therapy completed 06/25/2013 11/14/2014 ibuprofen (MOTRIN) 600 mg tablet TAKE ONE TABLET BY MOUTH EVERY 8 HOURS NEEDED FOR PAIN Patient Stopped Taking 12/19/2012 11/14/2014 lansoprazole (PREVACID) 30 mg capsuleIndications:ABDULAZIZ D (gastroesophageal reflux disease) Take 1 Cap by mouth daily. Discontinued by another clinician 07/01/2011 11/14/2014 documented as of this encounter Eye Exam Visual Acuity (Snellen - Linear) Right eye Left eye Dist cc 20/20 -2 20/20 -1 Near cc J1+ J1+ Correction: Glasses Tonometry (Applanation, 10:46) Right eye Left eye Pressure 14 14 Pupils Pupils Dark APD Right eye PERRL 2 None Left eye PERRL 2 None Visual Sierra (Counting fingers) Right eye Left eye Full Full Extraocular Movement Right eye Left eye Full Full Neuro/Psych Oriented x3: Yes Mood/Affect: Normal Dilation Both eyes: 1.0% Mydriacyl @ 10:46 Slit Lamp Exam Right eye Left eye Lids/Lashes papillomas lateral lower lid kiana illoma central upper lid Conjunctiva/Sclera White and quiet White and haris et Cornea Clear Clear Anterior Chamber Deep and quiet Deep and quiet Iris Round and reactive Round and judi ctive Lens Posterior chamber in traocular lens, trace PCO Posterior chamber intraocular lens Vitreous Normal Normal Fundus Exam Right eye Left eye Disc Normal Normal C/D Ratio 0.3 0.25 Macula Yellowish RPE change adjacent ot fovea, ? vitelliform lesion Yellowish RPE change adjacent ot fovea, ? vitelliform lesion Vessels Normal Normal Periphery Normal Normal Wearing Rx Sphere Cylinder [place] Add Right eye +0.75 +0.75 033 +2.75 Left eye +0.25 +1.00 173 +2.75 Type: Bifocal Manifest Refraction Sphere Cylinder [place] Dist VA Add Right eye +1.00 +0.50 040 20/20 +2.75 Left eye [place]bourne +1.50 005 20/20 +2.75 Final Rx Sphere Cylinder [place] Add Right eye +1.00 +0.50 040 +2.75 Left eye [place] +1.50 005 +2.75 Care Teams Assembler Piano Relationship Specialty Start Date End Date Sheela Storey APRN [address] [facility] [address] [address] [place] [address] PCP - General 12/16/13 documented as of this encounter
--- OUTSIDE RECORDS SUMMARY | 2024-01-12 02:06 | XMS_ITS | Encounter Summary ---
Author Organization [facility] Address [address] [place] [address] Care Team Providers Care Industrial Hygiene Engineer Name Role Phone Sheela Storey APRN Primary Care Provider [phone] Reason for Visit * Reason Onset Date Comments Eye Problem 10/25/2021 Encounter Details Date Type Department Care Team (Late st Contact Info) Description 10/25/2021 Telephone [facility] Ophthalmology - [place] [address] [place] [address] Goldy Guzman MD [address] [place] [phone] Eye Problem Social History Tobacco Use Types [...] No 11/26/2016 documented as of this encounter Miscellaneous Notes * Telephone Encounter - Ivone Sahni COA - 10/25/2021 1619 EDT I called Randi and told her per Dr Guzman she should increase her tears to 3-4 times a day. She should call us next week if this is not helping. * Telephone Encounter - Ivone Sahni COA - 10/25/2021 1600 EDT Randi reports her left eye has been feeling irritated in the corner. Both eyes have been tearing and blood shot at times. I told her I would talk to Dr Guzman and call her back. * Telephone Encounter - Jane Page - 10/25/2021 1436 EDT Randi called, she was drying her hair this morning (upside down) that she developed a FB sensation in her left eye, as well as redness, She spoke to her primary care and they suggested she be seen urgently, Please call to triage. [phone] documented in this encounter Plan of Treatment Upcoming Encounters Date Type Department Care Team (Late st Contact Info) Description 02/03/2024 12:45 EDT Office Visit [facility] Ophthalmology [facility] [address] [place] [address] Goldy Guzman MD [address] [place] [address] documented as of this encounter Visit Diagnoses Not on filedocumented in this encounter Care Teams Industrial Hygiene Engineer Relationship Specialty Start Date End Date Sheela Storey APRN 26 [facility] [address] [place] [address] PCP - General 12/16/13 documented as of this encounter
--- OUTSIDE RECORDS SUMMARY | 2024-01-12 02:06 | XMS_ITS | Encounter Summary ---
Author Organization [facility] Address [address] [place] [address] Care Team Providers Care Supervisor Gas Meter Repair Name Role Phone Sheela Storey APRN Primary Care Provider [phone] Encounter Details Date Type Department Care Team (Late st Contact Info) Description 01/21/2019 Historical Results Only [facility] [place] [facility] [address] [phone] [place] [address] [facility] [address] [place] [address] (Fax) Social History Tobacco Use Types Packs/Day Years [...] Info) Description 02/03/2024 12:45 EDT Office Visit [facility] Ophthalmology [address] [address] Goldy Guzman MD [address] [place] [address] documented as of this encounter Procedures Procedure Name Priority Date/Time Associated Diagnosis Comments COMPLETE BLOOD COUNT WITH DIFFERENTIAL (AUTO) Routine 01/21/2019 15:03 EDT documented in this encounter Results * (ABNORMAL) COMPLETE BLOOD COUNT WITH DIFFERENTIAL (AUTO) (01/21/2019 15:03 EDT) ABSOLUTE NEUTROPHIL COUN - [facility] 3.3 2.2 - 8.85 10e3/uL 01/21/2019 18:21 [facility] BASO # - [facility] 0.02 0.01 - 0.11 10e/uL 01/21/2019 18:21 [facility] % - [facility] 0 0 - 2 % 01/21/2019 18:21 [facility] EOS # - [facility] 0.04 0.03 - 0.61 10e3/ul 01/21/2019 18:21 [facility] EOS % - [facility] 1 0 - 5 % 01/21/2019 18:21 [facility] GRAN % - [facility] 72.3 40 - 80 % 01/21/2019 18:21 [facility] HEMATOCRIT - [facility] 30.2(L) 34.9 - 44.4 % 01/21/2019 18:21 [facility] HEMOGLOBIN - [facility] 10.2(L) 11.6 - 15.2 g/dl 01/21/2019 18:21 [facility] IG# - [facility] 0.01 0 - 0.7 10e3/uL 01/21/2019 18:21 [facility] IG% - [facility] 0.2 0 - 0.9 % 01/21/2019 18:21 [facility] LYMPH # - [facility] 0.7(L) 1.09 - 3.3 10e3/ul 01/21/2019 18:21 [facility] LYMPH% - [facility] 15.4(L) 20 - 40 % 01/21/2019 18:21 [facility] MEAN CORPUSCULAR HGB - [facility] 30.8 26.7 - 33.3 pg 01/21/2019 18:21 [facility] MEAN CORPUSCULAR HGB CONC - [facility] 33.8 32.1 - 35.9 g/dL 01/21/2019 18:21 [facility] MEAN CELL VOLUME - [facility] 91.2 81 - 98 fl 01/21/2019 18:21 [facility] MONO # - [facility] 0.5 0.1 - 0.8 10e3/uL 01/21/2019 18:21 [facility] MONO% - [facility] 10.8 0 - 12 % 01/21/2019 18:21 [facility] PLATELET COUNT 214 141 - 377 10e3/ul 01/21/2019 18:21 [facility] RED BLOOD COUNT - [facility] 3.31(L) 3.86 - 5.04 10e3/ul 01/21/2019 18:21 [facility] RED CELL DISTRI WIDTH - [facility] 13.1 <14.7 % 01/21/2019 18:21 [facility] WHITE BLOOD COUNT - [facility] 4.6 4.0 - 12.4 10e3/ul 01/21/2019 18:21 [facility] 01/21/2019 15:0 3 EDT 01/21/2019 18:02 EDT Anny Renner MD HEMATOLOGY & PF4 ORD ERABLES [facility] documented in this encounter Visit Diagnoses Not on filedocumented in this encounter Care Teams Supervisor Gas Meter Repair Relationship Specialty Start Date End Date Sheela Storey APRN [address] [facility] [address] [place] [address] PCP - General 12/16/13 documented as of this encounter
--- OUTSIDE RECORDS SUMMARY | 2024-01-12 02:06 | XMS_ITS | Encounter Summary ---
Author Organization [facility] Address [address] [place] [address] Care Team Providers Care Hvac Mechanical Engineer Name Role Phone Sheela Storey APRN Primary Care Provider [phone] Encounter Details Date Type Department Care Team (Latest Contact Info) Description 11/12/2017 13:45 EDT - 11/12/2017 23:59 EDT Hospital Encounter [address] [address] Unknown, Provider, Discharge Disposition: Home or Self [...] Code Departure Means Destination Home or Self Snf documented in this encounter Plan of Treatment Upcoming Encounters Date Type Department Care Team (Late st Contact Info) Description 02/03/2024 12:45 EDT Office Visit [facility] Ophthalmology [facility] [address] [place] [address] Goldy Guzman MD [address] [place] [address] documented as of this encounter Visit Diagnoses Not on filedocumented in this encounter Care Teams Hvac Mechanical Engineer Relationship Specialty Start Date End Date Sheela Storey APRN [address] [place] [address] PCP - General 12/16/13 documented as of this encounter
--- OUTSIDE RECORDS SUMMARY | 2024-01-12 02:06 | XMS_ITS | Encounter Summary ---
Author Organization [facility] Address [address] [place] [address] Care Team Providers Care Ambulance Driver Paramedic Name Role Phone Sheela Storey APRN Primary Care Provider [phone] [phone] Reason for Visit * Reason Comments Medications Refill Encounter Details Date Type Department Care Team (Late st Contact Info) Description 01/07/2023 Refill [facility] [address] [place] [phone] Rosalinda Santacruz PA-C [address] [facility] [address] [place], [place] [phone] Medications Refill Social History Tobacco Use Types Packs/Day Years [...] Info) Description 02/03/2024 12:45 EDT Office Visit [facility] Ophthalmology [facility] [address] [place] [address] Goldy Guzman MD [address] [place] [address] documented as of this encounter Visit Diagnoses Diagnosis Dysfunction of left eustachian tube Dysfunction of Eustachian tube documented in this encounter Care Teams Ambulance Driver Paramedic Relationship Specialty Start Date End Date Sheela Storey APRN [address] [place] [phone] PCP - General 12/16/13 documented as of this encounter
--- OUTSIDE RECORDS SUMMARY | 2024-01-12 02:06 | XMS_ITS | Encounter Summary ---
Author Organization [facility] Address [address] [place] [address] Care Team Providers Care Base Cloth Inspector Name Role Phone Sheela Storey APRN Primary Care Provider [phone] Reason for Visit * Reason Comments Laser Treatment Yag capsulotomy - Ri ght eye. Encounter Details Date Type Department Care Team (Late st Contact Info) Description 06/06/2015 11:45 EST Office Visit [facility] Ophthalmology [facility] [address] [place] [address] Goldy Guzman MD [address] [place] [phone] Social History Tobacco Use Types Packs/Day Years [...] visiting a doctor's office or shopping? No 06/06/2015 Cognitive Status Response Date of Assessm ent Because of a physical, menta l, or emotional condition, does this person have serious difficulty concentrating, remembering, or making decisions? No 06/06/2015 documented as of this encounter Procedure Notes * Damari Reynolds - 06/06/2015 1224 ESTProcedure(s): YAG CAPSULOTOMY - OU - BOTH EYES Pre-Procedure Diagnose(s): Posterior capsular opacification of right eye, obscuring vision Post-Procedure Diagnose(s): Posterior capsular opacification, right Oph YAG laser capsulotomy Note Randi Oswald is here and consented to the following: Procedure YAG capsulotomy Indication: Posterior capsular opacification obscuring vision Side: Right Eye Surgeon: Goldy Guzman MD No Known Allergies There were no vitals taken for this visit. PROCEDURE NOTE: Eye Drops: Right eye dilated using 1% tropicamide and 2.5% phenylephrine Time: 1:15 Anesthesia Type: Topical Proparacaine 0.5% Ophthalmic solution Iopidine given pre-procedure and post-procedure. The patient was taken to the laser room where a total of 95 exposures were given at 1.3 millijoulesto create a central posterior capsular opening. Lens used: Capsulotomy lens. I certify that a Final Verification has been performed by the surgical team immediately prior to this procedure to verbally confirm patient identity, procedure and correct site marked. Name of Photographer Helper: GEM Alcala Complications/Disposition: The patient tolerated the procedure well and left the office in good condition. Patient advised to call if any problems arise. Post-procedure instructions: IOP check in 30 mins. Patient will call with any flashes, floaters, eye pain/redness, or changes invision. Return in 1-2 weeks for follow-up. Signature: Goldy Guzman MD documented in this encounter Plan of Treatment Upcoming Encounters Date Type Department Care Team (Late st Contact Info) Description 02/03/2024 12:45 EDT Office Visit [facility] Ophthalmology [facility] [address] [place] [address] Goldy Guzman MD [address] [place] [phone] documented as of this encounter Visit Diagnoses Diagnosis Posterior capsular opacification of right eye, obscuring vision- Primary documented in this encounter Eye Exam Visual Acuity (Snellen - Linear) Right eye Left eye Dist sc 20/30 Tonometry #1 (Applanation, 11:58) Right eye Left eye Pressure 16 Tonometry #2 (Applanation, 12:51) Right eye Left eye Pressure 15 Tonometry Comments T2 post Yag capsulotomy Pupils Pupils Dark APD Right eye PERRL 3 None Left eye PERRL 3 None Visual Sierra (Counting fingers) Right eye Left eye Full Full Extraocular Movement Right eye Left eye Full Full Neuro/Psych Oriented x3: Yes Mood/Affect: Normal Dilation Right eye: 1.0% Mydriacyl, 2 .5% Phenylephrine @ 11:59 Care Teams Base Cloth Inspector Relationship Specialty Start Date End Date Sheela Storey APRN [address] [phone] PCP - General 12/16/13 documented as of this encounter
--- OUTSIDE RECORDS SUMMARY | 2024-01-12 02:06 | XMS_ITS | Encounter Summary ---
Author Organization [facility] Address [address] [place] [address] Care Team Providers Care Steel Fitter Name Role Phone Sheela Storey APRN Primary Care Provider [phone] [phone] Reason for Visit * Reason Onset Date Comments Eye Problem 11/02/2015 floater Encounter Details Date Type Department Care Team (Late st Contact Info) Description 11/02/[address] [facility] Ophthalmology [facility] [address] [place] [address] Goldy Guzman MD [address] [place] [phone] Eye Problem (floater) Social History Tobacco Use Types Packs/Day Years [...] No 07/05/2015 documented as of this encounter Miscellaneous Notes * Telephone Encounter - Moriah Martínez - 11/02/2015 0832 EDT Pt noticed thread like floater in the left eye yesterday, with one flash of light. No change in vision (curtain/veil), No pain. She depends on a friend for transportation and has to plan around her schedule. She was offered Friday11/06/15 @9:30, will call back to confirm. Explained that if she had an increase in floaters, flashes or a change in vision, to call back to be seen sooner. * Telephone Encounter - Jane Page - 11/02/2015 0812 EDT Randi left a voice mail 10/31 at 5:12pm stating that she needs to speak to a tech regarding a current eye problem. Please call to discuss. documented in this encounter Plan of Treatment Upcoming Encounters Date Type Department Care Team (Late st Contact Info) Description 02/03/2024 12:45 EDT Office Visit [facility] Ophthalmology [facility] [address] [place] [address] Goldy Guzman MD [address] [place] [phone] documented as of this encounter Visit Diagnoses Not on filedocumented in this encounter Care Teams Steel Fitter Relationship Specialty Start Date End Date Sheela Storey APRN [address] [place] [address] PCP - General 12/16/13 documented as of this encounter
--- OUTSIDE RECORDS SUMMARY | 2024-01-12 02:06 | XMS_ITS | Encounter Summary ---
Author Organization [facility] Address [address] [place] [address] Care Team Providers Care Associate Designer Name Role Phone Sheela Storey APRN Primary Care Provider [phone] Reason for Visit * Reason Onset Date Comments Follow-up 08/09/2019 Encounter Details Date Type Department Care Team (Late st Contact Info) Description 08/09/2019 Telephone [facility] [address] [place] [address] Evelia Mckinney, MARÍA Follow-up Social History Tobacco Use Types Packs/Day Years [...] encounter Miscellaneous Notes * Telephone Encounter - Evelia Mckinney, MARÍA - 08/09/2019 9149 EST Called Kyung back and gave her this information . Also let her know that theses are available @ [employer] also * Telephone Encounter - Aguila Juan DPM - 08/09/2019 1638 EST This was an office-made metatarsal cutout pad, using 1/8 thick felt. Can buy similar pad pre-made from [employer] or [employer]. Otherwise, use 1/8 adhesive felt and make her own. * Telephone Encounter - Evelia Mckinney RN - 08/09/2019 1404 EST Randi called and left a message that she would like the name of the Padding for her foot. Last visit was 04/06/2019 at that time she had ( metatarsal cut out pads made) Were these the pre-made or the ones cut out of felt? documented in this encounter Plan of Treatment Upcoming Encounters Date Type Department Care Team (Late st Contact Info) Description 02/03/2024 12:45 EDT Office Visit [facility] Ophthalmology [facility] [address] [place] [address] Goldy Guzman MD [address] [place] [phone] documented as of this encounter Visit Diagnoses Not on filedocumented in this encounter Care Teams Associate Designer Relationship Specialty Start Date End Date Sheela Storey APRN [address] [place] [address] PCP - General 12/16/13 documented as of this encounter
--- OUTSIDE RECORDS SUMMARY | 2024-01-12 02:06 | XMS_ITS | Encounter Summary ---
Author Organization [facility] Address [address] [place] [address] Care Team Providers Care Video News Editor Name Role Phone Star Winter MD Primary Care Provider [phone] Reason for Visit * Reason Onset Date Comments Medications Refill 05/18/2013 She needs kayla e drops refilled but not sure which ones? Encounter Details Date Type Department Care Team (Late st Contact Info) Description 05/18/2013 Refill [facility] Ophthalmology [address] [address] Ivone Sahni COA Medications Refill (She needs some drops refilled but not sure which ones?) Social History Tobacco Use Types Packs/Day Years [...] Dispensed Refills Start Date End Da te doxycycline (MONODOX) 100 mg capsule Take 1 Cap by mouth at bedtime. 90 Cap 0 06/25/2013 11/14/2014 documented in this encounter Miscellaneous Notes * Telephone Encounter - Goldy Guzman MD - 05/19/2013 1332 EST It is OK to use Doxycycline and she can have a 90 day refill. Hold on the FM for now. * Telephone Encounter - Di Chapman - 05/18/2013 1351 EST Pt calls and states that her eyes are starting to feel gritty and blurred again. She would like to know if she could start using FML again (she would need an rx) and she says she has some Doxycyclinepills left that she is going to start taking again(but would like a refill) I advised her that I would speak with Dr Guzman about what course of action he would like to take and in the meantime she should start warm compresses and use AT's. I told her I will call back after consulting with Dr Guzman. documented in this encounter Plan of Treatment Upcoming Encounters Date Type Department Care Team (Late st Contact Info) Description 02/03/2024 12:45 EDT Office Visit [facility] Ophthalmology [facility] [address] [place] [address] Goldy Guzman MD [address] [place] [phone] documented as of this encounter Visit Diagnoses Not on filedocumented in this encounter Care Teams Video News Editor Relationship Specialty Start Date End Date Star Winter MD [address] [place] [address] PCP - General 09/22/12 12/15/13 documented as of this encounter
--- OUTSIDE RECORDS SUMMARY | 2024-01-12 02:06 | XMS_ITS | Encounter Summary ---
Author Organization [facility] Address [address] [place] [address] Care Team Providers Care Report Specialist Name Role Phone Sheela Storey APRN Primary Care Provider [phone] Encounter Details Date Type Department Care Team (Latest Contact Info) Description 10/06/2018 10:57 EDT - 10/06/2018 23:59 EDT Hospital Encounter [address] [address] Unknown, Provider, Discharge Disposition: Home or Self [...] Code Departure Means Destination Home or Self Intermediate documented in this encounter Plan of Treatment Upcoming Encounters Date Type Department Care Team (Late st Contact Info) Description 02/03/2024 12:45 EDT Office Visit [facility] Ophthalmology [facility] [address] [place] [address] Goldy Guzman MD [address] [place] [address] documented as of this encounter Visit Diagnoses Not on filedocumented in this encounter Care Teams Report Specialist Relationship Specialty Start Date End Date Sheela Storey APRN [address] [place] [address] PCP - General 12/16/13 documented as of this encounter
--- OUTSIDE RECORDS SUMMARY | 2024-01-12 02:06 | XMS_ITS | Encounter Summary ---
Author Organization [facility] Address [address] [place] [address] Care Team Providers Care Ferryboat Pilot Name Role Phone Sheela Storey APRN Primary Care Provider [phone] Encounter Details Date Type Department Care Team (Late st Contact Info) Description 01/21/2019 Historical Results Only [facility] - Main [address] [phone] [place] [address] [facility] [address] [place] [address] (Fax) Social History Tobacco Use Types Packs/Day [...] Office Visit [facility] Ophthalmology [address] [address] Goldy Guzman MD [address] [place] [phone] documented as of this encounter Procedures Procedure Name Priority Date/Time Associated Diagnosis Comments IBC Routine 01/21/2019 15:03 EDT RETICULOCYTE COUNT Routine 01/21/2019 15 :03 EDT IRON Routine 01/21/2019 15:03 EDT FOLATE Routine 01/21/2019 15:03 EDT FERRITIN Routine 01/21/2019 15:03 EDT VITAMIN B12 Routine 01/21/2019 15:03 EDT documented in this encounter Results * IBC (01/21/2019 15:03 EDT) [facility] IRON BINDING CAPACITY [facility] 283 261 - 462 ug/dL 01/21/2019 18:47 EDT [facility] 01/21/2019 15:0 3 EDT 01/21/2019 18:02 EDT Anny Renner MD CHEMISTRY & BLOOD GA S ORDERABLES [facility] * FERRITIN (01/21/2019 15:03 EDT) [facility] FERRITIN [facility] 92 11.1 - 264.0 ng/mL 01/21/2019 19:18 EDT [facility] Comment: The results of this assay can be falsely lowered due to the consumption of Biotin. 01/21/2019 15:0 3 EDT 01/21/2019 18:02 EDT Anny Renner MD CHEMISTRY & BLOOD GA S ORDERABLES [facility] * IRON (01/21/2019 15:03 EDT) [facility] SERUM IRON - [facility] 37 37 - 170 ug/dL 01/21/2019 18:47 EDT [facility] 01/21/2019 15:0 3 EDT 01/21/2019 18:02 EDT Anny Renner MD CHEMISTRY & BLOOD GA S ORDERABLES Performing Organization Address [facility] Co de Phone Number [facility] * (ABNORMAL) FOLATE (01/21/2019 15:03 EDT) [facility] FOLIC ACID [facility] >20.00(H) 2.76- >20.0 ng/mL 01/21/2019 19:46 EDT [facility] Comment: The results of this assay can be falsely elevated due to the consumption of Biotin. 01/21/2019 15:0 3 EDT 01/21/2019 18:02 EDT Anny Renner MD CHEMISTRY & BLOOD GA S ORDERABLES Performing Organization Address [facility] Co de Phone Number [facility] * VITAMIN B12 (01/21/2019 15:03 EDT) [facility] VITAMIN B12 [facility] 870 239 - 931 pg/mL 01/21/2019 19:41 EDT [facility] Comment: The results of this assay can be falsely elevated due to the consumption of Biotin. 01/21/2019 15:0 3 EDT 01/21/2019 18:02 EDT Anny Renner MD CHEMISTRY & BLOOD GA S ORDERABLES Performing Organization Address [facility] Co de Phone Number [facility] * RETICULOCYTE COUNT (01/21/2019 15:03 EDT) [facility] IMMATURE RETIC FRACTION [facility] 4.1 3.0 - 15.9 % 01/21/2019 18:21 EDT [facility] Retic Ct (Uncorrected) 1.0 0.5 - 1.8 % 01/21/2019 18:21 EDT [facility] 01/21/2019 15:0 3 EDT 01/21/2019 18:02 EDT Anny Renner MD HEMATOLOGY & PF4 ORD ERABLES [facility] documented in this encounter Visit Diagnoses Not on filedocumented in this encounter Care Teams Ferryboat Pilot Relationship Specialty Start Date End Date Sheela Storey APRN [address] [place] [phone] PCP - General 12/16/13 documented as of this encounter
--- OUTSIDE RECORDS SUMMARY | 2024-01-12 02:06 | XMS_ITS | Encounter Summary ---
Author Organization [facility] Address [address] [place] [address] Care Team Providers Care Barber Shop Manager Name Role Phone Sheela Storey APRN Primary Care Provider [phone] Reason for Referral * (Routine) - Closed Specialty Diagnoses / Procedures Referred By Layne romeo Referred To Contact Diagnoses Vitelliform macular dystrophy Procedures OCT (OPHTHALMIC DIGITAL IMAGING, POSTERIOR SEGMENT) Goldy Guzman MD [address] [place] [phone] Referral ID Status Reason Start Date Expiration Date Visits Re quested Visits Authorized [id number] Closed 11/26/2016 1 1 Reason for Visit * Reason Comments Follow-up here for yearly foll ow up Vitelliform Dystrophy both eyes, PVD left eye, pseudophakia Encounter Details Date Type Department Care Team (Late st Contact Info) Description 11/26/2016 14:00 EDT Office Visit [facility] Ophthalmology [facility] [address] [place] [address] Goldy Guzman MD [address] [place] [phone] Social History Tobacco Use Types Packs/Day [...] Progress Notes * Goldy Guzman MD - 11/26/2016 1400 EDT Chief Complaint Patient presents with ??? Follow-up here for yearly follow up Vitelliform Dystrophy both eyes, PVD left eye, pseudophakia HPI The patient is a 76 y.o. female here for follow up. she has no eye pain, double vision, or new flashes/floaters. She reports that her distance vision is stable, but near vision seems not as good. Right Eye: Blurred Vision Left Eye: Blurred Vision, Floaters Visual Aid: Current Rx Age > 2 years Location: Both eyes Pain: 0 - No pain Quality: Blurry Severity: Mild Duration: Timing: Lasts: Context: Has red line down face under glasses since the weekend. Started with a dot of red by corner of eye. No pain, no itching. Modifying factors: Thinks near vision is not as good. Associated Signs & Symptoms: Attestation: ROS Constitutional: NL ENT/Mouth NL Cardiovascular: High Cholesterol, High Blood Pressure Respiratory: NL Gastrointestinal: Heartburn Genitourinary: Musculoskeletal: Integumentary: Neurologic: NL Psychiatric: Endocrine: Hematologic: Immunologic: Salvationist: Exposures: None Other: Attestation: Base Eye Exam Visual Acuity (Snellen - Linear) Right Left Dist cc 20/25 -2 20/40 Near cc J1+(-2) J1+(-2) Correction: Glasses Pupils Pupils Light APD Right PERRL 2 None Left PERRL 2 None Neuro/Psych Oriented x3: Yes Mood/Affect: Normal Slit Lamp and Fundus Exam Slit Lamp Exam Right Left Lids/Lashes Sessile papillomas lateral and central lower lid Normal Conjunctiva/Sclera White and quiet White and quiet Cornea Clear Clear Anterior Chamber Deep and quiet Deep and quiet Iris Round and reactive Round and reactive Lens Posterior chamber intraocular lens, Open posterior capsule Posterior chamber intraocular lens Fundus Exam Right Left Vitreous floaters Posterior vitreous detachment Disc Normal Normal C/D Ratio 0.25 0.25 Macula Yellowish RPE change adjacent ot fovea, ? vitelliform lesion Yellowish RPE change adjacent ot fovea, ? vitelliform lesion Vessels Normal Normal Periphery Normal Normal Refraction Wearing Rx Sphere Cylinder [place] Add Right +0.75 +0.75 35 +2.75 Left +0.25 +1.00 170 +2.75 Manifest Refraction Sphere Cylinder [place] Dist Add Near Right +0.75 +0.75 020 20/25-2 +2.75 J1+ Left +0.75 +0.75 010 20/30-2 +2.75 J1+ Final Rx Sphere Cylinder [place] Add Right +0.75 +0.75 020 +2.75 Left +0.75 +0.75 010 +2.75 DIAGNOSTIC TESTS: Indication: Vitelliform dystrophy OCT macula: Right: signal strength: 8/10, normal foveal contour, subfoveal elevation, no intra/subretinal fluid Left: signal strength: 8/10, normal foveal contour, subfoveal elevation, no intra/subretinal fluid IMPRESSION & PLAN: 1. 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 -Continue use of Amsler grid 2. Posterior vitreous detachment, left eye(s) Stable, monitor periodically 3. Pseudophakia, both eyes Stable, observe 4. Disorder of refraction and accommodation -Give glasses Rx patient???s option to fill I have reviewed the patient's past medical, family, social and surgical history. I have also reviewed the patient's medications, allergies, and problem list. I performed my own HPI and have reviewed the [facility]'s ROS as well. I completed this exam personally. Goldy Guzman MD Patient Education Topic: vitelliform dystrophy Method: Verbal Taught to: Patient Barriers: None Outcomes: independent Signature: Goldy Guzman MD' documented in this encounter Plan of Treatment Upcoming Encounters Date Type Department Care Team (Late st Contact Info) Description 02/03/2024 12:45 EDT Office Visit [facility] Ophthalmology [address] [address] Goldy Guzman MD [address] [place] [phone] Scheduled Orders Name Type Priority Associated Diagnoses Orde r Schedule OCT (OPHTHALMIC DIGITAL IMAGING, POSTERIOR SEGMENT) Ophthalmology Routine Vitelliform macular dystrophy Ordered: 11/26/2016 documented as of this encounter Visit Diagnoses Diagnosis Vitelliform macular dystrophy- Primary Dystrophies primarily involving the retinal pigment epithelium Posterior vitreous detachment, left Pseudophakia of both eyes Lens replaced by other means Refractive error Unspecified disorder of refraction and accommodation documented in this encounter Historical Medications * This list may reflect changes made after this encounter. Medication Sig Dispensed Refills Start Date End Date ipratropium (ATROVENT HFA) 17 mcg/actuation inhaler Inhale 2 Puffs as directed every 6 hours. added in this encounter Eye Exam Visual Acuity (Snellen - Linear) Right eye Left eye Dist cc 20/25 -2 20/40 Near cc J1+(-2) J1+(-2) Correction: Glasses Pupils Pupils Light APD Right eye PERRL 2 None Left eye PERRL 2 None Neuro/Psych Oriented x3: Yes Mood/Affect: Normal Slit [...] capsule Posterior chamber intraocular lens Vitreous floaters Posterior vitreo us detachment Fundus Exam Right eye Left eye Disc Normal Normal C/D Ratio 0.25 0.25 Macula Yellowish RPE change adjacent ot fovea, ? vitelliform lesion Yellowish RPE change adjacent ot fovea, ? vitelliform lesion Vessels Normal Normal Periphery Normal Normal Wearing Rx Sphere Cylinder [place] Add Right eye +0.75 +0.75 35 +2.75 Left eye +0.25 +1.00 170 +2.75 Manifest Refraction Sphere Cylinder [place] Dist VA Add Near VA Right eye +0.75 +0.75 020 20/25-2 +2.75 J1+ Left eye +0.75 +0.75 010 20/30-2 +2.75 J1+ Final Rx Sphere Cylinder [place] Add Right eye +0.75 +0.75 020 +2.75 Left eye +0.75 +0.75 010 +2.75 Care Teams Barber Shop Manager Relationship Specialty Start Date End Date Sheela Storey APRN [address] [place] [phone] PCP - General 12/16/13 documented as of this encounter
--- OUTSIDE RECORDS SUMMARY | 2024-01-12 02:06 | XMS_ITS | Encounter Summary ---
Author Organization [facility] Address [address] [place] [address] Care Team Providers Care Inspector Floor Name Role Phone Sheela Storey APRN Primary Care Provider [phone] Encounter Details Date Type Department Care Team (Late st Contact Info) Description 11/12/2017 Historical Results Only [facility] - Main [place] [address] [place], [place] [address] Dhruv Lopez MD [facility] [address] [place] [phone] Social History Tobacco Use Types Packs/Day Years [...] Info) Description 02/03/2024 12:45 EDT Office Visit [facility] Ophthalmology - [place] [address] [place] [address] Goldy Guzman MD [address] [place] [phone] documented as of this encounter Procedures Procedure Name Priority Date/Time Associated Diagnosis Comments SURGICAL PATHOLOGY Routine 11/12/2017 18 :34 EDT documented in this encounter Results * SURGICAL PATHOLOGY (11/12/2017 18:34 EDT) 11/12/2017 18:3 4 EDT 11/12/2017 18:34 EDT Narrative [facility] - 11/14/2017 16:32 EDT ----- ------- Name: RANDI OSWALD ?: 44 ?Age/Sex: 78/F ?Unit#: [id number] ? Loc: END ? Status: DEP CLI ?? Reg Date: 11/12/17 ? Pt.Phone Number: ? ----- ------- Specimen: [id number] ? STATUS: SOUT ?Spec Date:11/12/17 ? Physician Copies: ?Dhruv Lopez MD ? Tissues: A ?? Endoscopy specimen (CECUM) ? Star Vasquez ?? CPT: 24521 ?? Units: ??1 ?FINAL DIAGNOSIS ? CECUM, POLYP, BIOPSY; ? - Multiple fragments of tubular adenoma. ? GROSS DESCRIPTION ? Received in formalin labeled with the patient's name and cecal colon polyp ? are five mucosal tissue fragments ranging in size from 0.2 to 0.8 cm, e.s. 1. ? KF ?? PREOP DX/CLINICAL HISTORY ?SCREENING / HX OF POLYPS Signed ____(signature on file)____ Isabel Argueta M.D. 11/14/17 ?? By the signature above, the attending physician certifies that he/she has personally conducted a gross and/or microscopic examination of the described specimens and rendered or confirmed the above diagnosis. Test Performed by [facility], [address] [place] [address] Home Appliances Mechanic: Destini Abarca MD PHD ----- ------- Dhruv Lopez MD PATHOLOGY ORDERABLES Performing Organization Address City/State/[facility] Co de Phone Number [facility] documented in this encounter Visit Diagnoses Not on filedocumented in this encounter Care Teams Inspector Floor Relationship Specialty Start Date End Date Sheela Storey APRN [address] [place] [address] PCP - General 12/16/13 documented as of this encounter
--- OUTSIDE RECORDS SUMMARY | 2024-01-12 02:06 | XMS_ITS | Encounter Summary ---
Author Organization [facility] Address [address] [place] [address] Care Team Providers Care Lead Java Software Engineer Name Role Phone Sheela Storey APRN Primary Care Provider [phone] Encounter Details Date Type Department Care Team (Late st Contact Info) Description 10/06/2018 Historical Results Only [facility] Radiology Results [address] [address] [place], [facility] [address] [place], [place] [phone] Social History Tobacco Use Types Packs/Day Years [...] Description 02/03/2024 12:45 EDT Office Visit [facility] Ophthalmology [facility] [address] [place] [address] Goldy Guzman MD [address] [place] [phone] documented as of this encounter Visit Diagnoses Not on filedocumented in this encounter Care Teams Lead Java Software Engineer Relationship Specialty Start Date End Date Sheela Storey APRN 26 [facility]ID[facility] FLORESDorote[facility] [address] [place] [phone] PCP - General 12/16/13 documented as of this encounter
--- OUTSIDE RECORDS SUMMARY | 2024-01-12 02:06 | XMS_ITS | Encounter Summary ---
Author Organization [facility] Address [address] [place] [address] Care Team Providers Care Steward/Stewardess Tourist Class Name Role Phone Sheela Storey APRN Primary Care Provider [phone] Reason for Visit * Reason Comments Eye Problem blurred vision in ri ght eye for 3 weeks Encounter Details Date Type Department Care Team (Late st Contact Info) Description 04/25/2015 14:30 EDT Office Visit [facility] Ophthalmology [facility] [address] [place] [address] Goldy Guzman MD [address] [place] [phone] Social History Tobacco Use Types Packs/Day Years [...] visiting a doctor's office or shopping? No 04/25/2015 Cognitive Status Response Date of Assessm ent Because of a physical, menta l, or emotional condition, does this person have serious difficulty concentrating, remembering, or making decisions? No 04/25/2015 documented as of this encounter Progress Notes * Goldy Guzman MD - 04/25/2015 6346 EDT Chief Complaint Patient presents with ??? Eye Problem blurred vision in right eye for 3 weeks HPI The patient is a 74 y.o. female feels her vision is blurred at distance especially in the right eye. She has no pain in the eyes. Right Eye: Blurred Vision Left Eye: NL Visual Aid: Glasses Current Rx Age Location: Pain: Quality: Severity: Duration: Timing: Lasts: Context: Pt feels she has had a quick chnage in the vision of her right eye for the past 3 weeks Modifying factors: No new floaters or flashes. Associated Signs & Symptoms: Attestation: ROS Constitutional: NL ENT/Mouth Cardiovascular: Respiratory: Gastrointestinal: Genitourinary: Musculoskeletal: Integumentary: Neurologic: Psychiatric: Endocrine: Hematologic: Immunologic: Vinegar Maker: Exposures: None Other: Attestation: Base Eye Exam Visual Acuity (Snellen - Linear) Right Left Dist cc 20/30 20/25 Correction: Glasses Tonometry (Applanation, 15:06) Right Left Pressure 17 17 Pupils Pupils Dark APD Right PERRL 3 None Left PERRL 3 None Visual Sierra (Counting fingers) Right Left Result Full Full Neuro/Psych Oriented x3: Yes Mood/Affect: Normal Dilation Both eyes: 1.0% Mydriacyl, 2.5% Phenylephrine @ 15:12 Slit Lamp and Fundus Exam Slit Lamp Exam Right Left Lids/Lashes papillomas lower lid papilloma central upper lid Conjunctiva/Sclera White and quiet White and quiet Cornea Trace PEE Clear Anterior Chamber Deep and quiet Deep and quiet Iris Round and reactive Round and reactive Lens Posterior chamber intraocular lens, 1+ Posterior capsular opacification Posterior chamber intraocular lens Fundus Exam Right Left Vitreous Normal Normal Disc Normal Normal C/D Ratio 0.25 0.25 Macula Yellowish RPE change adjacent ot fovea, ? vitelliform lesion Yellowish RPE change adjacent ot fovea, ? vitelliform lesion Vessels Normal Normal Periphery Normal Normal Refraction Wearing Rx Sphere Cylinder [place] Add Right +0.75 +0.75 35 +2.75 Left +0.25 +1.00 170 +2.75 Manifest Refraction Sphere Cylinder [place] Dist Right +1.00 +0.75 20 20/30-1 Left +0.25 +1.25 180 20/20-2 DIAGNOSTIC TESTS: Indication: Vitelliform dystrophy OCT macula: Right: signal strength: /10, normal foveal contour, no intra/subretinal fluid, subfoveal vitelliform lesion Left: signal strength: 10/10, normal foveal contour, no intra/subretinal fluid, subfoveal vitelliform lesion IMPRESSION & PLAN: 1. Posterior capsular opacification, right eye Visually significant -Discussed option of YAG laser capsulotomy and patient wishes to proceed -Schedule YAG laser at patient's earliest convenience 2. Vitelliform Dystrophy, both eyes -Stable from prior exam -Macular OCT obtained -Continue at least weekly use of Amsler grid 3. Pseudophakia, both [...] he is personally performing the service. RAYMUNDO Alanis Patient Education Topic: blurred vision Method: Verbal Taught to: Patient Barriers: None Outcomes: independent Signature: Goldy Guzman MD documented in this encounter Plan of Treatment Upcoming Encounters Date Type Department Care Team (Late st Contact Info) Description 02/03/2024 12:45 EDT Office Visit [facility] Ophthalmology [facility] [address] [place] [address] Goldy Guzman MD [address] [place] [phone] documented as of this encounter Visit Diagnoses Diagnosis PCO (posterior capsular opacification), right- Primary After-cataract, unspecified 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 Medication Sig Dispensed Refills Start Date End Date ERGOCALCIFEROL, VITAMIN D2, (VITAMIN D ORAL) Take by mouth added in this encounter Eye Exam Visual Acuity (Snellen - Linear) Right eye Left eye Dist cc 20/30 20/25 Correction: Glasses Tonometry (Applanation, 15:06) Right eye Left eye Pressure 17 17 Pupils Pupils Dark APD Right eye PERRL 3 None Left eye PERRL 3 None Visual Sierra (Counting fingers) Right eye Left eye Full Full Neuro/Psych Oriented x3: Yes Mood/Affect: Normal Dilation Both eyes: 1.0% Mydriacyl, 2 .5% Phenylephrine @ 15:12 Slit Lamp Exam Right eye Left eye Lids/Lashes papillomas lower lid papilloma c entral upper lid Conjunctiva/Sclera White and quiet White and haris et Cornea Trace PEE Clear Anterior Chamber Deep and quiet Deep and quiet Iris Round and reactive Round and judi ctive Lens Posterior chamber in traocular lens, 1+ Posterior capsular opacification Posterior chamber intraocular lens Vitreous Normal Normal Fundus Exam Right eye Left eye Disc Normal Normal C/D Ratio 0.25 0.25 Macula Yellowish RPE change adjacent ot fovea, ? vitelliform lesion Yellowish RPE change adjacent ot fovea, ? vitelliform lesion Vessels Normal Normal Periphery Normal Normal Wearing Rx Sphere Cylinder [place] Add Right eye +0.75 +0.75 35 +2.75 Left eye +0.25 +1.00 170 +2.75 Manifest Refraction Sphere Cylinder [place] Dist VA Right eye +1.00 +0.75 20 20/30-1 Left eye +0.25 +1.25 180 20/20-2 Care Teams Steward/Stewardess Tourist Class Relationship Specialty Start Date End Date Sheela Storey APRN 26 [facility] [address] [place] [address] PCP - General 12/16/13 documented as of this encounter
--- OUTSIDE RECORDS SUMMARY | 2024-01-12 02:06 | XMS_ITS | Encounter Summary ---
Author Organization [facility] Address [address] [place] [address] Care Team Providers Care Courtesy Car Driver Name Role Phone Star Winter MD Primary Care Provider [phone] Reason for Visit * Reason Comments Other Encounter Details Date Type Department Care Team (Late st Contact Info) Description 01/31/[address] [id number] Junior Azevedo PA-C Other Social History Tobacco [...] * Telephone Encounter - Leeanne Clements - 02/01/[address] WITNER documented in this encounter Plan of Treatment Upcoming Encounters Date Type Department Care Team (Late st Contact Info) Description 02/03/2024 12:45 EDT Office Visit [facility] Ophthalmology [facility] [address] [place] [address] Goldy Guzman MD [address] [place] [phone] documented as of this encounter Visit Diagnoses Not on filedocumented in this encounter Care Teams Courtesy Car Driver Relationship Specialty Start Date End Date Star Winter MD [address] [place] [address] PCP - General 09/22/12 12/15/13 documented as of this encounter
--- OUTSIDE RECORDS SUMMARY | 2024-01-12 02:06 | XMS_ITS | Encounter Summary ---
Author Organization [facility] Address [address] [place] [address] Care Team Providers Care Drop Worker Name Role Phone Sheela Storey APRN Primary Care Provider [phone] Encounter Details Date Type Department Care Team (Late st Contact Info) Description 08/19/2019 Results Only [facility]- [facility] [phone] Oleg Brooks MD [address] [place] [phone] Social History Tobacco Use Types Packs/Day [...] 02/03/2024 12:45 EDT Office Visit [facility] Ophthalmology [facility] [address] [place], [place] [address] Goldy Guzman MD [address] [place] [phone] documented as of this encounter Procedures Procedure Name Priority Date/Time Associated Diagnosis Comments BACTERIAL CULTURE, URINE Routine 08/19/2019 13:23 EST URINALYSIS/COMPLETE - [facility] Routine 08/19/2019 12:57 EST SPEC W/O ORDERS - [facility] Routine 0 11:17 EST COMPLETE BLOOD COUNT WITH DIFFERENTIAL (AUTO) Routine 08/19/2019 11:17 EST COMPREHENSIVE METABOLIC PANEL (CMP) Routine 08/19/2019 11:17 EST documented in this encounter Results * BACTERIAL CULTURE, URINE (08/19/2019 13:23 EST) USUAL UROGENITAL TESSA - [facility] UUV 08/20/2019 15:03 EST [facility] COLONY COUNT 10,000-100 ,000 CFU/ML 08/20/2019 15:03 [facility] Urine specimen (specimen) 08/19/2019 13:23 EST 08/19/2019 13:23 EST Comment:VOID Narrative [facility] - 08/20/2019 15:03 EST AOT: 08/19/19 1323: UC Oleg Brooks MD MICROBIOLOGY - [facility] ORDERABLES [facility] * URINALYSIS/COMPLETE - [facility] (08/19/2019 12:57 EST) URINE APPEARANCE - [facility] Clear CLEAR 08/19/2019 13:10 [facility] URINE BACTERIA - [facility] FEW 08/19/2019 13:23 [facility] URINE BILIRUBIN - DIPSTICK - [facility] Negative NEGATIVE 08/19/2019 13:10 [facility] URINE BLOOD - [facility] Negative NEG 08/19/2019 13:10 [facility] URINE COLOR - [facility] Yellow YELLOW 08/19/2019 13:10 [facility] URINE GLUCOSE - [place]IP[place] - [facility] Negative NEGATIVE 08/19/2019 13:10 [facility] URINE KETONE - [facility] Negative NEGATIVE 08/19/2019 13:10 [facility] URINE LEUK ESTERASE - [facility] Trace NEG 08/19/2019 13:10 [facility] URINE MUCUS - [facility] FEW 08/19/2019 13:23 [facility] URINE NITRITE - [place] - [facility] Negative NEG 08/19/2019 13:10 [facility] URINE PH - [facility] 6.5 4.0 - 8.0 0 13:10 [facility] URINE PROTEIN - [place] - [facility] Negative NEG 08/19/2019 13:10 [facility] URINE RBC - [facility] RARE rbc/hpf 08/19/19 13:23 [facility] URCULTIF+? - [facility] Culture Ordered 08/19/2019 13:23 [facility] URINE SPECIFIC GRAVITY - [facility] 1.010 1.001 - 1.035 08/19/2019 13:10 [facility] URINE SQUAMOUS CELLS - [facility] RARE NEG #/hpf 08/19/2019 13:23 [facility] URINE UROBILINOGEN - [place] - [facility] 0.2 0.2 - 1.0 08/19/2019 13:10 [facility] URINE WBC - [facility] 1-4 NEG wbc/hpf 020 13:23 [facility] 08/19/2019 12:5 7 EST 08/19/2019 12:57 EST Oleg Brooks MD CHEMISTRY & BLOOD G ORDERABLES [facility] * (ABNORMAL) COMPREHENSIVE METABOLIC PANEL (CMP) (08/19/2019 11:17 EST) Albumin % 4.0 3.4 - 4.9 g/dL 08/19/2019 12:53 [facility] ALKALINE PHOSPHATASE - [facility] 55 38 - 126 U/L 08/19/2019 12:53 [facility] BILIRUBIN TOTAL 0.4 0.2 - 1.3 mg/dL 08/19/2019 12:53 [facility] BUN - [facility] 28(H) 10 - 26 mg/dL 08/19/2019 12:53 [facility] CALCIUM - [facility] 9.8 8.5 - 10.5 mg/dL 08/19/2019 12:53 [facility] Chloride 99 96 - 110 mmol/L 08/19/2019 12:53 [facility] CO2 Total 29 22 - 32 mEq/L 08/19/2019 12:53 [facility] CREATININE 1.11(H) 0.52 - 1.04 mg/dL 08/19/2019 12:53 [facility] eGFR 48 08/19/2019 12:53 [facility] Comment: Stage 3: Moderate renal impairment is defined as GFR 30-59 Multiply result by 1.210 for patients. eGFR calculated using the IDMS-traceable MDRD Study Equation. ??(effective 05/02/2014) Anion Gap 12 0 - 18 08/19/2019 12:53 [facility] GLUCOSE - [facility] 95 70 - 100 mg/dL 08/19/2019 12:53 [facility] Potassium 3.7 3.5 - 5.0 mEq/L 08/19/2019 12:53 [facility] Sodium 140 136 - 145 mEq/L 08/19/2019 12:53 [facility] TOTAL PROTEIN - [facility] 6.4 6.2 - 8.2 gm/dL 08/19/2019 12:53 [facility] SGOT/AST - [facility] 25 14 - 36 U/L 08/19/2019 12:53 [facility] SGPT/ALT - [facility] 19 0 - 35 U/L 0 12:53 [facility] 08/19/2019 11:1 7 EST 08/19/2019 12:41 EST Pranav Peng PA-C CHEMISTRY & BLOOD GA S ORDERABLES [facility] * (ABNORMAL) COMPLETE BLOOD COUNT WITH DIFFERENTIAL (AUTO) (08/19/2019 11:17 EST) Gran # 4.0 2.2 - 8.85 10e3/uL 08/19/2019 12:48 [facility] BASO # - [facility] 0.02 0.01 - 0.11 10e/uL 08/19/2019 12:48 [facility] BASO % - [facility] 0 0 - 2 % 08/19/2019 12:48 [facility] EOS # - [facility] 0.03 0.03 - 0.61 10e3/ul 08/19/2019 12:48 [facility] EOS % - [facility] 1 0 - 5 % 08/19/2019 12:48 [facility] GRAN % - [facility] 73.8 40 - 80 % 08/19/2019 12:48 [facility] HEMATOCRIT - [facility] 30.4(L) 34.9 - 44.4 % 08/19/2019 12:48 [facility] HEMOGLOBIN - [facility] 10.0(L) 11.6 - 15.2 g/dl 08/19/2019 12:48 [facility] IG# - [facility] 0.01 0 - 0.7 10e3/uL 08/19/2019 12:48 [facility] IG% - [facility] 0.2 0 - 0.9 % 08/19/2019 12:48 [facility] LYMPH # - [facility] 0.9(L) 1.09 - 3.3 10e3/ul 08/19/2019 12:48 [facility] LYMPH% - [facility] 16.7(L) 20 - 40 % 08/19/2019 12:48 [facility] MEAN CORPUSCULAR HGB - [facility] 30.1 26.7 - 33.3 pg 08/19/2019 12:48 [facility] MEAN CORPUSCULAR HGB CONC - [facility] 32.9 32.1 - 35.9 g/dL 08/19/2019 12:48 [facility] MEAN CELL VOLUME - [facility] 91.6 81 - 98 fl 08/19/2019 12:48 [facility] MONO # - [facility] 0.5 0.1 - 0.8 10e3/uL 08/19/2019 12:48 [facility] MONO% - [facility] 8.3 0 - 12 % 08/19/2019 12:48 [facility] PLATELET COUNT 206 141 - 377 10e3/ul 08/19/2019 12:48 [facility] RED BLOOD COUNT - [facility] 3.32(L) 3.86 - 5.04 10e3/ul 08/19/2019 12:48 [facility] RED CELL DISTRI WIDTH - [facility] 13.2 <14.7 % 08/19/2019 12:48 [facility] WHITE BLOOD COUNT - [facility] 5.4 4.0 - 12.4 10e3/ul 08/19/2019 12:48 [facility] 08/19/2019 11:1 7 EST 08/19/2019 12:41 EST Pranav Peng PA-C HEMATOLOGY & PF4 ORD ERABLES [facility] * SPEC W/O ORDERS - [facility] (08/19/2019 11:17 EST) SPEC W/O ORDERS - [facility] SEE NOTE 08/19/2019 12:00 EST [facility] Comment: ?Emergency Room Specimen(s) without Orders These specimens will be discarded in 4 hours: Gold, green, purple and blue 08/19/2019 11:1 7 EST 08/19/2019 12:00 EST Oleg Brooks MD CHEMISTRY & BLOOD G ORDERABLES [facility] documented in this encounter Visit Diagnoses Not on filedocumented in this encounter Care Teams Drop Worker Relationship Specialty Start Date End Date Sheela Storey APRN 26 [facility] [address] [place] [phone] PCP - General 12/16/13 documented as of this encounter
--- OUTSIDE RECORDS SUMMARY | 2024-01-12 02:06 | XMS_ITS | Encounter Summary ---
Author Organization [facility] Address [address] [place] [address] Care Team Providers Care Reference Archivist Name Role Phone Sheela Storey APRN Primary Care Provider [phone] Reason for Visit * Reason Comments Dizziness Nasal Congestion Encounter Details Date Type Department Care Team (Late st Contact Info) Description 06/28/2022 14:30 EST [facility]In [facility] [address] [place] [phone] Rosalinda Santacruz PA-C [address] [facility] [address] [place], [place] [phone] Dysfunction of left eustachian tube (Primary Dx); Dizziness Social History Tobacco Use Types Packs/Day Years [...] on file documented as of this encounter Last Filed Vital Signs Vital Sign Reading Time Taken Comments Blood Pressure - - Pulse - - Temperature 36.3 ??C (97.4 ??F) 06/28/2022 1413 EST Respiratory Rate 24 06/28/2022 1413 EST Oxygen Saturation 97% 06/28/2022 1413 EST Inhaled Oxygen Concentration - - Weight - - Height - - Body Mass Index - - documented in this encounter Functional Status Functional Status Response [...] No 11/26/2016 documented as of this encounter Patient Instructions * Patient Instructions* Rosalinda Santacruz PA-C - 06/28/2022 14:30 EST Your dizziness may be linked to the fluid that is behind your ear drums. I will have you try nasal decongestant called flonase, use puff twice daily. I will have you take zyrtec or tessa (over the counter). If you develop any slurred speech, facial droop, confusion, numbness, tingling or weakness or your symptoms worsen you need to call 911 right away for further evaluation. I would like you to see your primary care within the week to ensure you are improving. I want you to use your cane at all times. * Attachments The following attachments cannot be sent through Care Everywhere. * Eustachian Tube Problems (Portuguese) documented in this encounter Ordered Prescriptions Prescription Sig Dispensed Refills Start Date End Da te fluticasone propionate (FLONASE) 50 mcg/actuation nasal sprayIndications:Dysfunct ion of left eustachian tube Instill 1 Ramona into both nostrils 2 times daily. 16 g 2 06/28/2022 fluticasone propionate (FLONASE) 50 mcg/actuation nasal sprayIndications:Dysfunct ion of left eustachian tube Instill 1 Ramona into both nostrils 2 times daily. 16 g 2 06/28/2022 06/28/2022 documented in this encounter Progress Notes * Karina Banda RN - 06/28/2022 1430 EST CC/HPI: Pt reports dizziness x3 days. Not with any certain movements. Present all the time. Crust in nose with green mucus/congestion. Little loss of taste and smell. Covid Screening: In the last 72 hours, has the patient had: New or unusual cough, shortness of breath, new nasal congestion, sore throat, fever, chills, body aches, or new loss of taste or smell without a reasonable alternative diagnosis*? (If yes, assign to ARC)- As above In the past 10 days, has the patient had a positive Covid test OR a confirmed close Covid exposure (<6ft for > 15mins in 24hr period)? (if yes, assign to ARC, regardless of vaccination status)-NO *may be determined by RN or in discussion with available provider (UNDERWRITING ANALYST's and CCA's can defer to Charge Nurse to complete triage when appropriate) PCP: Sheela Storey * Rosalinda Santacruz PA-C - 06/28/2022 1430 EST [facility] Chief Complaint(s): Dizziness and Nasal Congestion Assessment & Plan: Randi was seen today for dizziness and nasal congestion. Diagnoses and all orders for this visit: Dysfunction of left eustachian tube - Discontinue: fluticasone propionate (FLONASE) 50 mcg/actuation nasal spray; Instill 1 Ramona into both nostrils 2 times daily. - fluticasone propionate (FLONASE) 50 mcg/actuation nasal spray; Instill 1 Ramona into both nostrils2 times daily. Dizziness Randi Oswald is a 81 y.o. female with significant history of CVA several years ago and is currently on anticoagulation and statin medication for this who presents for evaluation with friend for complaint of dizziness that has been present for 3 days. Description of dizziness is vertiginous in nature. Patient is generally well appearing, afebrile, non toxic, well hydrated, stable on exam. Thorough neurologic exam was unremarkable today. Not orthostatic. Due to Beers criteria meclizine or dramamine are not options great options for this pt. Will trial treatment of the eustachian tube dysfunction and have pt have close follow up with Primary Care Provide within the week. Sent rx for nasal decongestant and recommend OTC antihistamine suchas tessa or zyrtec. Discussed in great detail the ED precautions for stroke symptoms or for worsening dizziness symptom. An appropriate medical screening examination was performed. The patient was assessed prior to discharge and deemed stable for discharge home. I printed material and reviewed home management and follow up in detail with patient, see patient instructions below. Patient is advised in use of [employer] to access any lab results or other pertinentvisit information. All questions are answered. Patient is advised to follow up for urgent reassessment for any new/worsening signs and symptoms, otherwise, follow up with PCP or at [facility] for symptoms that persist past current course of treatment or expected resolution as discussed. Patient verbalizes understanding and agreement with this plan of care. HPI: Randi Oswald is a 81 y.o. female who has history of CVA years ago is here with complaint of dizziness. The dizziness has been present for 3 days with movements. Patient is a friend and states that patient seems to be at her baseline normal. Patient reports the dizziness sensation as a feeling off balance. Reports having ear pressure and some sinus congestion ongoing for months. Otherwise is feeling well. Patient denies: headache, LOC, lightheadedness, falling, slurred speech, weakness, numbness or tingling, changes in vision confusion. Social History Tobacco Use Smoking Status Former ??? Years: 30.00 ??? Types: Cigarettes Smokeless Tobacco Never I have reviewed current problem list, current medications and allergies. ROS: Review of Systems Constitutional: Negative for chills, fever and malaise/fatigue. HENT: Positive for congestion. Negative for ear discharge, ear pain, hearing loss, sinus pain, sorethroat and tinnitus. Eyes: Negative for blurred vision, double vision, photophobia and pain. Respiratory: Negative for cough, shortness of breath and wheezing. Cardiovascular: Negative for chest pain and leg swelling. Gastrointestinal: Negative for abdominal pain, blood in stool, melena, nausea and vomiting. Genitourinary: Negative for dysuria, flank pain, frequency, hematuria and urgency. Musculoskeletal: Negative for falls and myalgias. Neurological: Positive for dizziness. Negative for tingling, sensory change, speech change, focal weakness, seizures, loss of consciousness, weakness and headaches. See HPI for details Objective: Vitals and nursing notes reviewed Examination: Temp 36.3 ??C (97.4 ??F) (Oral) Resp 24 SpO2 97% Physical Exam Constitutional: General: She is not in acute distress. Appearance: She is not ill-appearing or toxic-appearing. HENT: Head: Atraumatic. Right Ear: Ear canal and external ear normal. No tenderness. A middle ear effusion is present. Tympanic membrane is not erythematous, retracted or bulging. Left Ear: Ear canal and external ear normal. No tenderness. A middle ear effusion is present. Tympanic membrane is not erythematous, retracted or bulging. Nose: No congestion or rhinorrhea. Mouth/Throat: Mouth: Mucous membranes are moist. Pharynx: Oropharynx is clear. No oropharyngeal exudate or posterior oropharyngeal erythema. Cardiovascular: Rate and Rhythm: Normal rate and regular rhythm. Heart sounds: Normal heart sounds. Pulmonary: Effort: Pulmonary effort is normal. Breath sounds: Normal breath sounds. Abdominal: General: Abdomen is flat. Palpations: Abdomen is soft. Tenderness: There is no abdominal tenderness. Lymphadenopathy: Cervical: No cervical adenopathy. Neurological: General: No focal deficit present. Mental Status: She is alert. Cranial Nerves: Cranial nerves 2-12 are intact. No dysarthria or facial asymmetry. Sensory: Sensation is intact. No sensory deficit (to light touch in upper and lower extremities). Motor: No weakness or pronator drift. Coordination: Romberg sign negative. Coordination normal. Cdaczb-Pbml-Busikn Test and Heel to Mahajan Test normal. Rapid alternating movements normal. Gait: Gait is intact. Deep Tendon Reflexes: Reflex Scores: Patellar reflexes are 2+ on the right side and 2+ on the left side. Achilles reflexes are 2+ on the right side and 2+ on the left side. This note may be in part documented using [employer] dictation software. Please forgive any errors, omissions or typos that may result from use of dictation. documented in this encounter Plan of Treatment Upcoming Encounters Date Type Department Care Team (Late st Contact Info) Description 02/03/2024 12:45 EDT Office Visit [facility]mology [address] [address] Goldy Guzman MD [address] [place] [address] documented as of this encounter Visit Diagnoses Diagnosis Dysfunction of left eustachian tube- Primary Dysfunction of Eustachian tube Dizziness Dizziness and giddiness documented in this encounter Discontinued Medications Medication Sig Discontinue Reason Start Date End Da te fluticasone propionate (FLONASE) 50 mcg/actuation nasal sprayIndications:Dysfun ction of left eustachian tube Instill 1 Ramona into both nostrils 2 times daily. 06/28/2022 06/28/2022 documented as of this encounter Care Teams Reference Archivist Relationship Specialty Start Date End Date Sheela Storey APRN [address] [facility] [address] [place] [address] PCP - General 12/16/13 documented as of this encounter
--- OUTSIDE RECORDS SUMMARY | 2024-01-12 02:06 | XMS_ITS | Encounter Summary ---
Author Organization [facility] Address [address] [place] [address] Care Team Providers Care Freight Broker Agent Name Role Phone Sheela Storey APRN Primary Care Provider [phone] Encounter Details Date Type Department Care Team (Late st Contact Info) Description 10/30/2020 Lab Requisition [facility] Pathology & Laboratory Medicine - [facility] [address] [place] [address] Outr Resulting Lab, Provider Social History Tobacco [...] Info) Description 02/03/2024 12:45 EDT Office Visit [facility] Ophthalmology [facility] [address] [place] [address] Goldy Guzman MD [address] [place] [address] documented as of this encounter Procedures Procedure Name Priority Date/Time Associated Diagnosis Comments HAPTOGLOBIN Routine 10/30/2020 10:58 EDT documented in this encounter Results * HAPTOGLOBIN (10/30/2020 10:58 EDT) Haptoglobin 159 32 - 197 mg/dL 10/31/2020 10:00 EDT [facility] Blood VENOUS BLOOD / Unknown 10/30/2020 10:58 EDT 10/30/2020 15:50 EDT Provider Outr Resulting Lab CHEMISTRY & BLOOD GAS ORDERABLES [facility] [address] [place] [address] documented in this encounter Visit Diagnoses Not on filedocumented in this encounter Care Teams Freight Broker Agent Relationship Specialty Start Date End Date Sheela Storey APRN [address] [place] [address] PCP - General 12/16/13 documented as of this encounter
--- OUTSIDE RECORDS SUMMARY | 2024-01-12 02:06 | XMS_ITS | Encounter Summary ---
Author Organization [facility] Address [address] [place] [address] Care Team Providers Care Market Analysis Director Name Role Phone Sehela Storey APRN Primary Care Provider [phone] Reason for Visit * Reason Comments Follow-up Yearly f/u - Vitelli form Dystrophy, both eyes/PCO, left eye Encounter Details Date Type Department Care Team (Late st Contact Info) Description 01/14/2022 9:15 EDT Office Visit [facility] [address] [place] [address] Goldy Guzman MD [address] [place] [phone] Social History Tobacco Use Types Packs/Day Years [...] Progress Notes * Goldy Guzman MD - 01/14/2022 0915 EDT Chief Complaint Patient presents with ??? Follow-up Yearly f/u - Vitelliform Dystrophy, both eyes/PCO, left eye HPI The patient is a 81 y.o. 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 She feels both distance and near vision has declined in clarity. she has no eye pain, double vision, or new flashes/floaters. She uses artificial tears for dryness 3- 4 times a day along with warm compress. Right Eye: Blurred Vision, Dryness Left Eye: Blurred Vision, Dryness Visual Aid: Glasses Current Rx Age Location: Pain: 0 - No pain Quality: Severity: Duration: Timing: Lasts: Context: Pt here for yearly f/u visit. She reports vision seems decreased, for both distance & near. She uses magnifying glass for reading. She has dry eyes - uses warm compresses & AT's about 3-4x daily. She has occasional floaters, no flashes, and no eye pain. Modifying factors: uses AT's 3-4x daily Associated Signs & Symptoms: Attestation: ROS Constitutional: ENT/Mouth Hearing Loss Cardiovascular: High Blood Pressure, High Cholesterol Respiratory: NL Gastrointestinal: NL Genitourinary: NL Musculoskeletal: Muscle Pain, Joint Pain Integumentary: NL Neurologic: Psychiatric: NL Endocrine: NL Hematologic: NL Immunologic: Drug Allergy Analytic Programmer: NL Exposures: Other: Attestation: Base Eye Exam Visual Acuity (Snellen - Linear) Right Left Dist cc 20/40 +1 20/60 -3 Dist ph cc NI NI Tonometry (Applanation, 10:05) Right Left Pressure 13 11 Pupils Pupils APD Right PERRL None Left PERRL None Visual Sierra (Counting fingers) Right Left Full Full Extraocular Movement Right Left Full Full Neuro/Psych Oriented x3: Yes Mood/Affect: Normal Dilation Both eyes: Tropicamide 1%, Phenylephrine 2.5% @ 10:05 Slit Lamp and Fundus Exam Slit Lamp [...] vitreous detachment Disc Normal Normal C/D Ratio 0.2 0.25 Macula Central vitelliform lesion Central vitelliform lesion Vessels Normal Normal Periphery Normal Normal Refraction Wearing Rx Sphere Cylinder Monroe Add Right +0.75 +1.25 018 +2.75 Left -0.50 +2.25 005 +2.75 Type: Bifocal Manifest Refraction Sphere Cylinder Monroe Dist VA Right +1.00 +0.50 018 20/40-2 Left +0.50 +2.25 178 20/80-3 DIAGNOSTIC TESTING/PROCEDURES: OCT, Retina - OU - Both Eyes Indication: Vitelliform Dystrophy, both eyes OCT macula: Right: signal strength: 9/10, normal foveal contour, central RPE irregularity with disrupted vitelliform lesion, no intra/subretinal fluid Left: signal strength: 8/10, normal foveal contour, central RPE irregularity with disrupted vitelliform lesion, no intra/subretinal fluid IMPRESSION & PLAN: 1. Adult-onset Vitelliform macular Dystrophy, both eyes With change on OCT today from last year in both eyes -Continue use of Amsler grid -Call with changes in the vision/new distortion on grid -Return in 1 year for complete & OCT-Mac 2. Posterior capsular opacification, left eye -not visually significant -monitor 3. Posterior vitreous detachment, left eye Stable, monitor periodically 4. Pseudophakia, both eyes Stable, observe I have [...] Info) Description 02/03/2024 12:45 EDT Office Visit [facility] - [place] [address] [place] [address] Goldy Guzman MD [address] [place] [phone] documented as of this encounter Procedures Procedure Name Priority Date/Time Associated Diagnosis Comments OCT, RETINA - OU - BOTH EYES Routine 01/14/2022 10:49 EDT Vitelliform macular dystrophy documented in this encounter Results * OCT, RETINA - OU - BOTH EYES (01/14/2022 10:49 EDT) Narrative [facility] - 01/14/2022 10:49 EDT Indication: Vitelliform Dystrophy, both eyes OCT macula: Right: signal strength: 9/10, normal foveal contour, central RPE irregularity with disrupted vitelliform lesion, no intra/subretinal fluid Left: signal strength: 8/10, normal foveal contour, central RPE irregularity with disrupted vitelliform lesion, no intra/subretinal fluid Goldy Guzman MD OPHTH TOMOGRAPHY [facility] documented in this encounter Visit Diagnoses Diagnosis Vitelliform macular dystrophy- Primary Dystrophies primarily involving the retinal pigment epithelium PCO (posterior capsular opacification), left After-cataract, unspecified Posterior vitreous detachment, left eye Vitreous degeneration Pseudophakia of both eyes Lens replaced by other means documented in this encounter Eye Exam Visual Acuity (Snellen - Linear) Right eye Left eye Dist cc 20/40 +1 20/60 -3 Dist ph cc NI NI Tonometry (Applanation, 10:05) Right eye Left eye Pressure 13 11 Pupils Pupils APD Right eye PERRL None Left eye PERRL None Visual Sierra (Counting fingers) Right eye Left eye Full Full Extraocular Movement Right eye Left eye Full Full Neuro/Psych Oriented x3: Yes Mood/Affect: Normal Dilation Both eyes: Tropicamide 1%, P henylephrine 2.5% @ 10:05 Slit Lamp Exam Right eye Left eye Lids/Lashes Sessile papillomas l ateral and central lower lid Normal Conjunctiva/Sclera White and quiet White and haris et Cornea Clear Clear Anterior Chamber Deep and quiet Deep and quiet Iris Round and reactive Round and judi ctive Lens Posterior chamber in traocular lens, Open posterior capsule Posterior chamber intraocular lens, 1-2+ posterior capsular opacification Vitreous Floaters Posterior vitreo us detachment Fundus Exam Right eye Left eye Disc Normal Normal C/D Ratio 0.2 0.25 Macula Central vitelliform lesion Centr al vitelliform lesion Vessels Normal Normal Periphery Normal Normal Wearing Rx Sphere Cylinder Monroe Add Right eye +0.75 +1.25 018 +2.75 Left eye -0.50 +2.25 005 +2.75 Type: Bifocal Manifest Refraction Sphere Cylinder Monroe Dist VA Right eye +1.00 +0.50 018 20/40-2 Left eye +0.50 +2.25 178 20/80-3 Care Teams Market Analysis Director Relationship Specialty Start Date End Date Sheela Storey, ELECTRICAL INSTRUMENT TECHNICIAN [address] [place] [phone] PCP - General 12/16/13 documented as of this encounter
--- OUTSIDE RECORDS SUMMARY | 2024-01-12 02:07 | XMS_ITS | Encounter Summary ---
Author Organization [facility] Address [address] [place] [address] Care Team Providers Care Community Center Worker Name Role Phone Star Vasquez MD Primary Care Provider [phone] Reason for Visit * Reason Onset Date Comments Blepharitis 10/11/2011 Has questions ab out her blepharitis. Encounter Details Date Type Department Care Team (Late st Contact Info) Description 10/11/2011 Telephone [facility] Ophthalmology [address] [phone] Ivone Sahni COA Blepharitis (Has questions about her blepharitis.) Social History Tobacco Use Types Packs/Day Years Used Date Smoking Tobacco: Former Cigarettes Alcohol Use Standard Drinks/Week Comments Yes 0 (1 standard drink = 0.6 oz pur e alcohol) rare Sex and Gender Information Value Date Recorded Sex Assigned at Not on file Gender Identity Female 10/16/2020 9:54 EDT Sexual Orientation Not on file documented as of this encounter Miscellaneous Notes * Telephone Encounter - Moriah Martínez - 10/11/2011 5307 EDT Spoke with patient re: Blepharitis, occasional blurriness. At last visit w/Dr. Mai he suggested she use warm compresses for Blepharitis/on & off blurriness. She has been using compresses but notices that if she forgets or stops she notices the blurriness again. I told her to continue her regimen of using warm compresses & to use AT's in between compresses. I told her to let us know if t his treatment wasn't working or she was having further issues w/blurring. documented in this encounter Plan of Treatment Upcoming Encounters Date Type Department Care Team (Late st Contact Info) Description 02/03/2024 12:45 EDT Office Visit [facility] Ophthalmology [facility] [address] [place] [address] Goldy Guzman MD [address] [place] [phone] documented as of this encounter Visit Diagnoses Not on filedocumented in this encounter Care Teams Community Center Worker Relationship Specialty Start Date End Date Star Vasquez MD [address] [place] [phone] PCP - General 12/02/08 09/03/12 documented as of this encounter
--- OUTSIDE RECORDS SUMMARY | 2024-01-12 02:07 | XMS_ITS | Encounter Summary ---
Author Organization [facility] Address [address] [place] [address] Care Team Providers Care Labor Commissioner Name Role Phone Star Vasquez MD Primary Care Provider [phone] Reason for Referral * Consult, Test and Treat (Routine/Next Available) - Closed Specialty Diagnoses / Procedures Referred By Layne romeo Referred To Contact Diagnoses Upper back pain on right side Junior Azevedo PA-C [address] [place] [address] [address] [place] [address] Referral ID Status Reason Start Date Expiration Date V isits Requested Visits Authorized [id number] Closed Specialty Services Required 06/09/2012 1 1 Question Answer Reason for Request: right upper back pain x 4 weeks. Reason for Visit * Reason Comments Shoulder Pain pain posterior rt sh oulder,has been treated with antibx couple months ago,wonders if this is left over from that. Encounter Details Date Type Department Care Team (Late st Contact Info) Description 06/09/2012 9:30 EST Office Visit [facility] Family Medicine [facility] [address] [facility] [address] [place] [address] Junior Azevedo PA-C Upper back pain on right side (Primary Dx) Social History Tobacco Use Types Packs/Day Years [...] EST Pulse 78 06/09/2012 0937 EST Temperature 36.6 ??C (97.8 ??F) 06/09/2012 0937 EST Respiratory Rate - - Oxygen Saturation - - Inhaled Oxygen Concentration - - Weight - - Height - - Body Mass Index - - documented in this encounter Progress Notes * Junior Azevedo PA-C - 06/09/2012 0952 EST Mrs Oswald comes in today because of right upper back pain, onset about 4 weeks ago. She is not aware of any injury; however, she does routinely do physical therapy exercises per Dr Crump. The exercises require her to have her right arm extended and dorsiflex the wrist and then put the arm in supination and repeat, so there is some stress being applied to the muscles of the posterior right shoulder. It has not inhibited her in doing any work during the day. She notes it mostly at night when she tries to go to sleep. She occasionally needs tramadol to help relieve the discomfort. OBJECTIVE: Temperature is 97.8, blood pressure 116/60, pulse 78. She is well appearing. She has full range of motion of the right shoulder. Extension across the chest causes a pull in the posterior aspect of the shoulder. There is tenderness at the medial inferior border of the right scapula. Passive range of motion of the shoulder. There is no tenderness of the shoulder itself. Good elbow flexion and extension strength. ASSESSMENT: What appears to be a persistent muscle strain in the right upper back. PLAN: The patient is instructed to use a heating pad on low several times daily with gentle stretching of that area. Recommended she follow up with physical therapy if symptoms are not being relievedby the heating pad. documented in this encounter Plan of Treatment Upcoming Encounters Date Type Department Care Team (Late st Contact Info) Description 02/03/2024 12:45 EDT Office Visit [facility] [address] [place] [address] Goldy Guzman MD [address] [place] [address] Scheduled Referrals Name Type Priority Associated Diagnoses Orde r Schedule AMB CONSULT PHYSICAL THERAPY Outpatient Referral Routine Upper Back Pain On Right Side Ordered: 06/09/2012 documented as of this encounter Visit Diagnoses Diagnosis Upper back pain on right side- Primary Pain in thoracic spine documented in this encounter Discontinued Medications Medication Sig Discontinue Reason Start Date End Da te amoxicillin (AMOXIL) 875 mg tabletIndications:Sinusit is Take 1 Tab by mouth 2 times daily. Error 05/08/2012 06/09/2012 documented as of this encounter Care Teams Labor Commissioner Relationship Specialty Start Date End Date Star Vasquez MD [address] [place] [address] PCP - General 12/02/08 09/03/12 documented as of this encounter
--- OUTSIDE RECORDS SUMMARY | 2024-01-12 02:07 | XMS_ITS | Encounter Summary ---
Author Organization [facility] Address [address] [place] [address] Care Team Providers Care Time Cycle Operator Name Role Phone Star Vasquez MD Primary Care Provider [phone] Reason for Visit * Reason Comments Verrucous Vulgaris (Warts) right foot Encounter Details Date Type Department Care Team (Late st Contact Info) Description 05/17/2011 13:00 EST Office Visit [facility] Family Medicine [address] [place] [address] Star Vasquez MD [address] [place] [address] Plantar wart (Primary Dx) Social History Tobacco Use Types [...] Sign Reading Time Taken Comments Blood Pressure 140/70 05/17/2011 1311 EST Pulse 68 05/17/2011 1311 EST Temperature - - Respiratory Rate 18 05/17/2011 1311 EST Oxygen Saturation - - Inhaled Oxygen Concentration - - Weight 71.7 kg (158 lb) 05/17/2011 1311 EST Height - - Body Mass Index 28.9 04/25/2011 1102 EDT documented in this encounter Progress Notes * Star Vasquez MD - 05/17/2011 1330 EST Pre-op diagnosis/Post-op diagnosis: wart(s) Consent: Potential risks and expected benefits were discussed. All questions were answered. Verbal consent was obtained directly from the patient. Time-Out: Proper patient, procedure, and location of lesion(s) were reviewed directly with the patient at the time of the procedure. Prep: Alcohol Description: Patient was sitting up. 2 wart(s) identified on right foot - ball. Lesions were sharply debrided using a #15 blade. Liquid nitrogen was applied to the warts using a cryogun through threefreeze-thaw cycles. EBL: None Instructions:wound healing as expected blistering documented in this encounter Plan of Treatment Upcoming Encounters Date Type Department Care Team (Late st Contact Info) Description 02/03/2024 12:45 EDT Office Visit [facility] Ophthalmology [facility] [place] [address] [place] [address] Goldy Guzman MD [address] [place] [address] documented as of this encounter Visit Diagnoses Diagnosis Plantar wart- Primary documented in this encounter Care Teams Time Cycle Operator Relationship Specialty Start Date End Date Star Vasquez MD [address] [place] [address] PCP - General 12/02/08 09/03/12 documented as of this encounter
--- OUTSIDE RECORDS SUMMARY | 2024-01-12 02:07 | XMS_ITS | Encounter Summary ---
Author Organization [facility] Address [address] [place] [address] Care Team Providers Care Transit Mix Operator Name Role Phone Star Vasquez MD Primary Care Provider [phone] Reason for Visit * Reason Onset Date Comments Nasal Congestion 07/18/2010 Encounter Details Date Type Department Care Team (Late st Contact Info) Description 07/18/[address] [place] [address] Star Vasquez MD [address] [place] [address] Nasal Congestion Social History Tobacco Use Types Packs/Day Years [...] encounter Miscellaneous Notes * Telephone Encounter - Yessenia Gan NP - 07/18/2010 0941 EST Will work on buying the mucinex as guafensin * Telephone Encounter - Sue Delaney - 07/18/2010 0854 EST Randi says that she has or has had an Rx for Fexofenadine for her congestion, which she believes is related to allergies, but that it doesn't work. She tried some Mucinex and said it worked wonderfully, but that it is very expensive. Randi doesn't go to town very often, but she's going this morning. She's hoping that somebody will call this in for her. I did try to help her understand that this is a very tall order. She said wecan call and leave a message with her to let her know if it's called in. (It would need to be called, seeing as it's [place].) documented in this encounter Plan of Treatment Upcoming Encounters Date Type Department Care Team (Late st Contact Info) Description 02/03/2024 12:45 EDT Office Visit [facility] Ophthalmology [facility] [address] [place] [address] Goldy Guzman MD [address] [place] [address] documented as of this encounter Visit Diagnoses Not on filedocumented in this encounter Care Teams Transit Mix Operator Relationship Specialty Start Date End Date Star Vasquez MD [address] [place] [address] PCP - General 12/02/08 09/03/12 documented as of this encounter
--- OUTSIDE RECORDS SUMMARY | 2024-01-12 02:07 | XMS_ITS | Encounter Summary ---
Author Organization [facility] Address [address] [place] [address] Care Team Providers Care Remote Broadcast Engineer Name Role Phone Star Vasquez MD Primary Care Provider [phone] Reason for Referral * (Routine) - Closed Specialty Diagnoses / Procedures Referred By Contac t Referred To Contact Diagnoses Light-headedness Procedures VITAMIN D (25,[place]) Garry Henry MD [address] [facility] [address] [place] [address] Referral ID Status Reason Start Date Expiration Date Visits Re quested Visits Authorized [id number] Closed 08/31/2011 1 1 * (Routine) - Closed Specialty Diagnoses / Procedures Referred By Contac t Referred To Contact Diagnoses Light-headedness Procedures THYROID CASCADE Garry Henry MD [address] [facility] [address] [place] [address] Referral ID Status Reason Start Date Expiration Date Visits Re quested Visits Authorized [id number] Closed 08/31/2011 1 1 * (Routine) - Closed Specialty Diagnoses / Procedures Referred By Contac t Referred To Contact Diagnoses Light-headedness Procedures PROTIME Garry Henry MD [address] [facility] [address] [place] [address] Referral ID Status Reason Start Date Expiration Date Visits Re quested Visits Authorized [id number] Closed 08/31/2011 1 1 * (Routine) - Closed Specialty Diagnoses / Procedures Referred By Contac t Referred To Contact Diagnoses Light-headedness Procedures HEMAGRAM AND DIFFERENTIAL Garry Henry MD [address] [facility] [address] [place] [address] Referral ID Status Reason Start Date Expiration Date Visits Re quested Visits Authorized [id number] Closed 08/31/2011 1 1 * (Routine) - Closed Specialty Diagnoses / Procedures Referred By Contac t Referred To Contact Diagnoses Hypertension Procedures BASIC METABOLIC PANEL Garry Henry MD [address] [facility] [address] [place] [address] Referral ID Status Reason Start Date Expiration Date Visits Re quested Visits Authorized [id number] Closed 08/31/2011 1 1 * (Routine) - Closed Specialty Diagnoses / Procedures Referred By Contac t Referred To Contact Diagnoses Hyperlipidemia Procedures LIPID PROFILE (INCLUDES CHOLESTEROL, TRIGLYCERIDES, HDL, LDL) Garry Henry MD [address] [facility] [address] [place] [address] Referral ID Status Reason Start Date Expiration Date Visits Re quested Visits Authorized [id number] Closed 08/31/2011 1 1 * (Routine) - Closed Specialty Diagnoses / Procedures Referred By Contac t Referred To Contact Diagnoses Hypertension Procedures ALT Garry Henry MD [address] [facility] [address] [place] [address] Referral ID Status Reason Start Date Expiration Date Visits Re quested Visits Authorized [id number] Closed 08/31/2011 1 1 Reason for Visit * Reason Comments Fatigue Encounter Details Date Type Department Care Team (Late st Contact Info) Description 08/31/2011 10:15 EST Office Visit [facility] [address] [facility] [address] [place] [address] Garry Henry MD Hypertension; Hyperlipidemia; Light-headedness Social History Tobacco Use Types Packs/Day Years [...] Sign Reading Time Taken Comments Blood Pressure 130/80 08/31/2011 1038 EST Pulse 76 08/31/2011 1038 EST Temperature 36.8 ??C (98.3 ??F) 08/31/2011 1038 EST Respiratory Rate - - Oxygen Saturation - - Inhaled Oxygen Concentration - - Weight - - Height - - Body Mass Index - - documented in this encounter Progress Notes * Garry Henry MD - 08/31/2011 1226 EST PROBLEM: Lightheadedness. SUBJECTIVE: Randi is here with her to evaluate increasing episodes of weakness and lightheadedness. She has had some vague spells of feeling weak over the past few months but in the past week has had more pronounced lightheadedness or vague dizziness often when she first gets up. She has felt faint but has not really lost consciousness. She has also felt a bit off balance. She has not de veloped nausea, vomiting, diarrhea, fever, cough, shortness of breath, palpitations, chest pain. 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 She is not taking any new medications. It has been some time since she has had any blood tests. MEDICATIONS: Prevacid 30 mg daily. Cozaar 100 mg daily. Aggrenox 200/25 mg twice daily. Simvastatin 40 mg daily. Flonase. Calcium and vitamins. She has allergy or intolerance to ZOLPIDEM. OBJECTIVE: She does move with care. BP 130/80, pulse 76, temperature 98.3. TMs appear normal. Sinuses nontender. Throat clear. Neck supple, no adenopathy. Lungs clear, good breath sounds. Heart sounds regular, no murmur. Abdomen: Active bowel sounds, soft, nontender. Extremities: No edema. ASSESSMENT: Episodes weakness, lightheadedness, ? developing viral illness. PLAN: She will have blood testing done. I encouraged she keep up liberal liquids, get adequate rest, avoid sudden movement. She will report if symptoms not improved in 3 to 4 days. Further evaluationdepending on lab results and persistence of symptoms. She should probably follow up with Dr Vasquez. documented in this encounter Plan of Treatment Upcoming Encounters Date Type Department Care Team (Late st Contact Info) Description 02/03/2024 12:45 EDT Office Visit [facility] Ophthalmology [facility] [address] [place] [address] Goldy Guzman MD [address] [place] [address] Scheduled Orders Name Type Priority Associated Diagnoses Orde r Schedule ALT Lab Routine Hypertension Ordered: 08/31/2011 LIPID PROFILE (INCLUDES CHOLESTEROL, TRIGLYCERIDES, HDL, LDL) Lab Routine Hyperlipidemia Ordered: 08/31/2011 BASIC METABOLIC PANEL Lab Routine Hypertension Ordered: 08/31/2011 HEMAGRAM AND DIFFERENTIAL Lab Routine Light-headedness Ordered: 08/31/2011 PROTIME Lab Routine Light-headedness Ordered: 08/31/2011 THYROID CASCADE Lab Routine Light-headedness Ordered: 08/31/2011 VITAMIN D (25,[place]) Lab Routine Light-headedness Ordered: 08/31/2011 documented as of this encounter Visit Diagnoses Diagnosis Hypertension Unspecified essential hypertension Hyperlipidemia Other and unspecified hyperlipidemia Light-headedness Dizziness and giddiness documented in this encounter Care Teams Remote Broadcast Engineer Relationship Specialty Start Date End Date Star Vasquez MD [address] [place] [address] PCP - General 12/02/08 09/03/12 documented as of this encounter
--- OUTSIDE RECORDS SUMMARY | 2024-01-12 02:07 | XMS_ITS | Encounter Summary ---
Author Organization [facility] Address [address] [place] [address] Care Team Providers Care Plug Wirer Name Role Phone Star Vasquez MD Primary Care Provider [phone] Reason for Visit * Reason Onset Date Comments Eye Problem 08/06/2012 using erythromyc in no help Encounter Details Date Type Department Care Team (Late st Contact Info) Description 08/06/2012 Telephone [facility] Op[facility] [address] [place] [address] Magdaleno Jennings MD [address] [address] Eye Problem (using erythromycin no help) Social History Tobacco Use Types Packs/Day Years [...] * Telephone Encounter - Moriah Martínez - 08/07/2012 0913 EST Patient feels she is still having blurriness, even after using reccommended treatment for blepharitis/dry eye, we scheduled her a follow up appointment on 09/08/12 to coincide w/her husbands existing appt. * Telephone Encounter - Helen Decker - 08/06/2012 1627 EST Patient calls because has been using erythromycin faithfully, but she is still having problems, is there anything else she can do? documented in this encounter Plan of Treatment Upcoming Encounters Date Type Department Care Team (Late st Contact Info) Description 02/03/2024 12:45 EDT Office Visit [facility] [address] [place] [address] Goldy Guzman MD [address] [place] [phone] documented as of this encounter Visit Diagnoses Not on filedocumented in this encounter Care Teams Plug Wirer Relationship Specialty Start Date End Date Star Vasquez MD [address] [place] [address] PCP - General 12/02/08 09/03/12 documented as of this encounter
--- OUTSIDE RECORDS SUMMARY | 2024-01-12 02:07 | XMS_ITS | Encounter Summary ---
Author Organization [facility] Address [address] [place] [address] Care Team Providers Care Executive Director Name Role Phone Star Vasquez MD Primary Care Provider [phone] Macie Guevara [facility] Primary Care Provi moisés Reason for Visit * Reason Onset Date Comments Medications Refill 09/01/2012 Encounter Details Date Type Department Care Team (Late st Contact Info) Description 09/01/[address] [address] Star Vasquez MD [address] [place] [address] Medications Refill Social History Tobacco Use Types [...] Dispensed Refills Start Date End Da te tramadol (ULTRAM) 50 mg tablet Take 1 Tab by mouth every 6 hours as needed for Pain. 30 Each 5 09/01/2012 documented in this encounter Miscellaneous Notes * Telephone Encounter - Florencia Darling - 09/01/2012 0847 EST Last ov 07/16/2012.pc documented in this encounter Plan of Treatment Upcoming Encounters Date Type Department Care Team (Late st Contact Info) Description 02/03/2024 12:45 EDT Office Visit [facility] Ophthalmology [facility] [place] [address] [place] [address] Goldy Guzman MD [address] [place] [address] documented as of this encounter Visit Diagnoses Not on filedocumented in this encounter Discontinued Medications Medication Sig Discontinue Reason Start Date End Da te tramadol (ULTRAM) 50 mg tablet TAKE 1 TABLET BY MOUTH EVERY 6 HOURS NEEDED FOR PAIN Reorder 03/21/2012 09/01/2012 documented as of this encounter Care Teams Executive Director Relationship Specialty Start Date End Date Star Vasquez MD [address] [place] [address] PCP - General 12/02/08 09/03/12 Macie Guevara FNP [address] [facility] [place], [place] [address] PCP - General 09/04/12 09/21/12 documented as of this encounter
--- OUTSIDE RECORDS SUMMARY | 2024-01-12 02:07 | XMS_ITS | Encounter Summary ---
Author Organization [facility] Address [address] [place] [address] Care Team Providers Care Hogshead Head Matcher Name Role Phone Star Vasquez MD Primary Care Provider [phone] Reason for Visit * Reason Onset Date Comments Eye Problem 07/08/2012 Her eyes are not any better and she will be out of the medication tomorrow. Her reading and distance is blurry. Encounter Details Date Type Department Care Team (Late st Contact Info) Description 07/08/2012 Telephone [facility] Op[facility]mology - [address] [address] Ivone Sahni COA Eye Problem (Her eyes are not any better and she will be out of the medication tomorrow. Her reading and distance is blurry.) Social History Tobacco Use Types Packs/Day Years [...] * Telephone Encounter - Moriah Martínez - 07/08/2012 0297 EST Patient has been using Erythromycin ointment, warm compresses, & AT's as suggested by Dr. Jennings, vision seems unchanged, blurry near & far. Offered her an appointment to come back in to check her eyes, but she wasn't sure she needed to come back in, also concerned about whether insurance would cover the visit. I told her I would speak w/Dr. Jennings and return a call to her tomorrow. Dr. Jennings advised patient to keep using treatment as prescribed to see if it will help with her blurriness & for her to call back if she was not having any improvement or if symptoms were to get worse. documented in this encounter Plan of Treatment Upcoming Encounters Date Type Department Care Team (Late st Contact Info) Description 02/03/2024 12:45 EDT Office Visit [facility] Op[facility] [address] [place] [address] Goldy Guzman MD [address] [place] [phone] documented as of this encounter Visit Diagnoses Not on filedocumented in this encounter Care Teams Hogshead Head Matcher Relationship Specialty Start Date End Date Star Vasquez MD [address] [place] [address] PCP - General 12/02/08 09/03/12 documented as of this encounter
--- OUTSIDE RECORDS SUMMARY | 2024-01-12 02:07 | XMS_ITS | Encounter Summary ---
Author Organization [facility] Address [address] [place] [address] Care Team Providers Care Harness Cutter Name Role Phone Star Vasquez MD Primary Care Provider [phone] Reason for Referral * Consult (Routine) - Closed Specialty Diagnoses / Procedures Referred By Layne romeo Referred To Contact Diagnoses Torn meniscus Darron Farmer MD [address] [address] Referral ID Status Reason Start Date Expiration Date V isits Requested Visits Authorized [id number] Closed Specialty Services Required 03/22/2011 1 1 Question Answer Reason for Request: torn medial meniscus right knee Comments Ask pt re: to whom we refer. If no preference, GMO Reason for Visit * Reason Onset Date Comments Results 03/22/2011 MRI Referral Request 03/22/2011 Encounter Details Date Type Department Care Team (Late st Contact Info) Description 03/22/2011 Telephone [facility] Family Medicine [address] [address] Darron Farmer MD Results (MRI); Referral Request Social History Tobacco Use Types Packs/Day Years [...] encounter Miscellaneous Notes * Telephone Encounter - Deanna Kim - 03/22/2011 1203 EDT Called Randi and relayed message. She would like to go to [facility]. * Telephone Encounter - Darron Farmer MD - 03/22/2011 1152 EDT Pt's MRI right knee of 03/19 shows torn medial meniscus. Needs ortho referral. Please call to notifyand see who she wants to see. I'll order the referral. documented in this encounter Plan of Treatment Upcoming Encounters Date Type Department Care Team (Late st Contact Info) Description 02/03/2024 12:45 EDT Office Visit [facility] Ophthalmology [facility] [address] [place] [address] Goldy Guzman MD [address] [place] [phone] Scheduled Referrals Name Type Priority Associated Diagnoses Order Schedule AMB CONSULT ORTHOPEDICS Outpatient Referral Routine Torn meniscus Ordered: 03/22/2011 documented as of this encounter Visit Diagnoses Diagnosis Torn meniscus- Primary Other tear of cartilage or meniscus of knee, current documented in this encounter Care Teams Harness Cutter Relationship Specialty Start Date End Date Star Vasquez MD [address] [place] [address] PCP - General 12/02/08 09/03/12 documented as of this encounter
--- OUTSIDE RECORDS SUMMARY | 2024-01-12 02:07 | XMS_ITS | Encounter Summary ---
Author Organization [facility] Address [address] [place] [address] Care Team Providers Care Project Portfolio Analyst Name Role Phone Star Vasquez MD Primary Care Provider [phone] Reason for Referral * Consult (Routine) - Closed Specialty Diagnoses / Procedures Referred By Contac t Referred To Contact Diagnoses Arm pain S/P carpal tunnel release Star Vasquez MD [address] [place] [address] [facility] [address] [address] Referral ID Status Reason Start Date Expiration Date V isits Requested Visits Authorized [id number] Closed Specialty Services Required 02/14/2012 1 1 Question Answer Reason for Request: arm/wrist pain - ? carpal tunnel Comments Dr. Crump * Consult (Routine) - Closed Specialty Diagnoses / Procedures Referred By Contac t Referred To Contact Diagnoses Colon polyp Star Vasquez MD [address] [place] [address] [address] Phone: [phone] Referral ID Status Reason Start Date Expiration Date V isits Requested Visits Authorized [id number] Closed Specialty Services Required 02/14/2012 1 1 Question Answer Reason for Request: ? overdue for repeat colo Comments Dr. Lopez Reason for Visit * Reason Onset Date Comments Referral Request 02/12/2012 Encounter Details Date Type Department Care Team (Late st Contact Info) Description 02/12/2012 Telephone [facility] [place] [address] [place] [address] Star Vasquez MD [address] [place], [place] [phone] Referral Request Social History Tobacco Use Types [...] encounter Miscellaneous Notes * Telephone Encounter - Arminda Spangler - 02/14/2012 1002 EDT Faxed referrals to [facility]. * Telephone Encounter - Star Vasquez MD - 02/14/2012 0822 EDT referrals to gissel done she will have to talk with pharmacy about the shape of the tramadol pill - I have no control over that :-) * Telephone Encounter - Teri Paulino - 02/12/2012 1533 EDT Patient called again specifying that she want the Tramadol tabs to be oblong because another pill she takes is round. * Telephone Encounter - Jessi Martin - 02/12/2012 1312 EDT Pt states she is overdue for her 5 year f/u of her colo.. Can you refer her for this w/out her having to come back in? She saw Dr. Lopez for it back in 2005 and she was to have returned in 5 years. Also, she is wondering about referring her back to dr crump, about her pain in arm/elbow/wrist.She believes she may have carpel tunnel, has pain below and above her elbow. Message for Friday documented in this encounter Plan of Treatment Upcoming Encounters Date Type Department Care Team (Late st Contact Info) Description 02/03/2024 12:45 EDT Office Visit [facility] [address] [place] [address] Goldy Guzman MD [address] [place] [address] Scheduled Referrals Name Type Priority Associated Diagnoses Order Schedule AMB CONSULT GASTROENTEROLOGY Outpatient Referral Routine Colon polyp Ordered: 02/14/2012 AMB CONSULT ORTHOPEDICS Outpatient Referral Routine Arm pain S/P carpal tunnel release Ordered: 02/14/2012 documented as of this encounter Visit Diagnoses Diagnosis S/P carpal tunnel release Other postprocedural status Arm pain Pain in limb Colon polyp Benign neoplasm of colon documented in this encounter Care Teams Project Portfolio Analyst Relationship Specialty Start Date End Date Star Vasquez MD [address] [place] [phone] PCP - General 12/02/08 09/03/12 documented as of this encounter
--- OUTSIDE RECORDS SUMMARY | 2024-01-12 02:07 | XMS_ITS | Encounter Summary ---
Author Organization [facility] Address [address] [place] [address] Care Team Providers Care Structures Assembler Name Role Phone Star Vasquez MD Primary Care Provider Macie Guevara [facility] Primary Care Provi moisés Star Winter MD Primary Care Provider [phone] Sheela Storey APRN Primary Care Provider [phone] Encounter Details Date Type Department Care Team (Late st Contact Info) Description 04/24/2012 Historical Results Only [facility] - [address] [place] [address] [place], [place] [address] Dhruv Lopez MD [facility] [address] [place] [address] Social History Tobacco Use Types Packs/Day Years Used Date Smoking Tobacco: Former Cigarettes Alcohol Use Standard Drinks/Week Comments Yes 0 (1 standard drink = 0.6 oz pur e alcohol) rare Sex and Gender Information Value Date Recorded Sex Assigned at Not on file Gender Identity Female 10/16/2020 9:54 EDT Sexual Orientation Not on file documented as of this encounter Plan of Treatment Upcoming Encounters Date Type Department Care Team (Late st Contact Info) Description 02/03/2024 12:45 EDT Office Visit [facility] Ophthalmology [facility] [address] [place], [place] [phone] Goldy Guzman MD [address] [place] [phone] documented as of this encounter Procedures Procedure Name Priority Date/Time Associated Diagnosis Comments SURGICAL PATHOLOGY Routine 04/24/2012 documented in this encounter Results * SURGICAL PATHOLOGY (04/24/2012) 04/24/2012 04/24/2012 15: 32 EDT Narrative [facility] - 04/27/2012 14:08 EDT ----- ------- Name: RANDI OSWALD ?: 44 ?Age/Sex: 78/F ?Unit#: [id number] ? Loc: END ? Status: REG CLI ?? Reg Date: 04/24/12 ? Pt.Phone Number: ? ----- ------- Specimen: [id number] ? STATUS: SOUT ?Spec Date:04/24/12 ? Physician Copies: ?Dhruv Lopez MD ? Tissues: A ?? Gastrointestinal Tract (CECUM) ? [place] ? B ?? Gastrointestinal Tract (ASCENDING COLON) ? CPT: 07672 ?? Units: ??2 ?FINAL DIAGNOSIS ? A. Cecum, polyp, biopsy; ? - Tubular adenoma fragments. ? B. Ascending colon, polyp, biopsy; ? - Tubular adenoma fragments. ? GROSS DESCRIPTION ? A. Received in [facility] labeled with the patient's name and cecal polyp are ? two mucosal fragments measuring 0.2 and 0.3 cm, e.s. 1. ? B. Received in [facility] labeled with the patient's name and ascending polyp x ? 2 are five mucosal fragments ranging from 0.1 to 0.3 cm, e.s. 1 .CP ?? PREOP DX/CLINICAL HISTORY ?History of polyps. Signed ____(signature on file)____ Destini Abarca M.D. 04/27/12 By the signature above, the attending physician certifies that he/she has personally conducted a gross and/or microscopic examination of the described specimens and rendered or confirmed the above diagnosis. Test Performed by [facility], [address] [place] [address] Operation Research Analyst: Destini Abarca MD PHD ----- ------- Dhruv Lopez MD PATHOLOGY ORDERABLES [facility] documented in this encounter Visit Diagnoses Not on filedocumented in this encounter Care Teams Structures Assembler Relationship Specialty Start Date End Date Star Vasquez MD [address] [place] [address] PCP - General 12/02/08 09/03/12 Macie Guevara FNP [address] [place] [address],[address] [place] [address] PCP - General 09/04/12 09/21/12 Star Winter MD [address] [place] [address] PCP - General 09/22/12 12/15/13 Sheela Storey APRN [address] [facility] [address] [place] [address] PCP - General 12/16/13 documented as of this encounter
--- OUTSIDE RECORDS SUMMARY | 2024-01-12 02:07 | XMS_ITS | Encounter Summary ---
Author Organization [facility] Address [address] [place] [address] Care Team Providers Care Claims Account Specialist Name Role Phone Star Vasquez MD Primary Care Provider [phone] Reason for Visit * Reason Onset Date Comments Medications Refill 10/11/2010 Encounter Details Date Type Department Care Team (Late st Contact Info) Description 10/11/2010 Refill [facility] Medicine [address] [place] [address] Star Vasquez MD [address] [place] [phone] Medications Refill Social History Tobacco Use Types [...] * Telephone Encounter - Deanna Kim - 10/12/2010 1113 EDT Patient called and said she was able to get her Gabapentin from . * Telephone Encounter - Deanna Kim - 10/11/2010 0854 EDT Patient would like to transfer her Gabapentin 300 mg pills, not capsules, from Dr. Corral to [facility]. She takes between 600 and 900. She is out tomorrow. I suggested she get one more refill from but she didn't want to. I advised her that it may not happen here tomorrow. Please let her know. documented in this encounter Plan of Treatment Upcoming Encounters Date Type Department Care Team (Late st Contact Info) Description 02/03/2024 12:45 EDT Office Visit [facility] Ophthalmology [facility] [address] [place] [address] Goldy Guzman MD [address] [place] [address] documented as of this encounter Visit Diagnoses Not on filedocumented in this encounter Care Teams Claims Account Specialist Relationship Specialty Start Date End Date Star Vasquez MD [address] [place] [phone] PCP - General 12/02/08 09/03/12 documented as of this encounter
--- OUTSIDE RECORDS SUMMARY | 2024-01-12 02:07 | XMS_ITS | Encounter Summary ---
Author Organization [facility] Address [address] [place] [address] Care Team Providers Care Gold Leaf Printer Name Role Phone Star Vasquez MD Primary Care Provider [phone] Reason for Visit * Reason Comments Blurred Vision Patient does have so me blurry vision on & off. She also is having difficulty reading, adding words or dropping words in sentences. Encounter Details Date Type Department Care Team (Late st Contact Info) Description 06/09/2012 10:30 EST Office Visit [facility] Ophthalmology [facility] [address] [place] [address] Magdaleno Jennings MD [address] [address] Social History Tobacco Use Types Packs/Day Years Used Date Smoking Tobacco: Former Cigarettes Smokeless Tobacco: Never Alcohol Use Standard Drinks/Week Comments Yes 0 (1 standard drink = 0.6 oz pur e alcohol) rare Sex and Gender Information Value Date Recorded Sex Assigned at Not on file Gender Identity Female 10/16/2020 9:54 EDT Sexual Orientation Not on file documented as of this encounter Patient Instructions * Patient Instructions* Magdaleno Jennings MD - 06/09/2012 11:46 EST Diagnosis: Meibomian Gland Dysfunction, both eyes, mild with mild symptoms -Warm compresses applied to both eyes for 5 minutes morning and bedtime with gentle eyelid massage as needed -Use a bedside humidifier when running heat or air conditioning -Lubricant eye drops (artificial tears) such as Systane Balance (purple box), Refresh, Optive (consider preservative free varieties and DO NOT use Visine or Clear Eyes) - 1 drop each eye 4 times a day -Fish oil, flax seed oil or [place] 3 - take 2 tablets or tablespoons a day -Erythromycin prescription eye ointment - apply a 1 inch strip ONTO each eyeball at BEDTIME, after warm compresses and drops (pull lower lid down, look up, and squeeze ointment onto eyeball) -Follow up in 9 months to one year or sooner if worse symptoms Blepharitis: After Your Visit Your Care Instructions Blepharitis is an inflammation or infection of the eyelids. It can cause redness, itching, burning,and scaly skin at the edges of the eyelids. Blepharitis is more common in people who have rosacea, dandruff, skin allergies, or eczema. With treatment, you can manage your symptoms so that your eyes remain comfortable. Your doctor may prescribe an ointment for you to use on your eyelids. Follow-up care is a cesar part of your treatment and safety. Be sure to make and go to all appointments, and call your doctor if you are having problems. It???s also a good idea to know your test results and keep a list of the medicines you take. How can you care for yourself at home? Wash your eyelids and eyebrows daily with baby shampoo. To wash your eyelids: Place a very warm washcloth over your eyes for about a minute. This will help soften and loosen thecrusts on your eyelashes. Put a few drops of baby shampoo on a warm washcloth. Gently wipe your eyelids. This helps remove any crust and cleans your eyelids. Rinse well with water. If your doctor prescribed medicine for you, use it exactly as directed. Call your doctor if you think you are having a problem with your medicine. When should you call for help? Call your doctor now or seek immediate medical care if: You have new vision problems. Your eyes hurt. Your eyelids bleed. Watch closely for changes in your health, and be sure to contact your doctor if: Your symptoms are not getting better within 2 weeks, despite home treatment. documented in this encounter Ordered Prescriptions Prescription Sig Dispensed Refills Start Date End Da te erythromycin (ROMYCIN) 5 mg/gram (0.5 %) ophthalmic ointmentIndications:Bleph dontis, unspecified Place 0.5 inch ribbon into both eyes at bedtime for 30 days. 1 Tube 11 06/09/2012 07/09/2012 documented in this encounter Progress Notes * Magdaleno Jennings MD - 06/09/2012 1146 EST Chief Complaint Patient presents with ??? Blurred Vision Patient does have some blurry vision on & off. She also is having difficulty reading, adding words or dropping words in sentences. HPI The patient is a 71 y.o. female Right Eye: Blurred Vision;Itching (little itching & irritation in both eyes) Left Eye: Blurred Vision;Itching Visual Aid: Glasses Current Rx Age Location: Pain: 0 - No pain Quality: Severity: Duration: Timing: Lasts: Context: Modifying factors: Associated Signs & Symptoms: Attestation: ROS Constitutional: NL ENT/Mouth Cardiovascular: Respiratory: Gastrointestinal: Genitourinary: Musculoskeletal: Integumentary: Neurologic: Psychiatric: Endocrine: Hematologic: Immunologic: Steel Finisher: Exposures: None Other: Attestation: Allergies include: Review of patient's allergies indicates no known allergies. Patient Active Problem List Diagnoses ??? Cerebral infarction ??? Hypertension ??? Hyperlipidemia ??? Nephrolithiasis ??? Chronic anxiety ??? Gastroesophageal reflux disease ??? Environmental allergies ??? Chronic low back pain ??? Osteopenia ??? Colon polyp ??? Chronic neck pain ??? Acquired trigger finger ??? Abnormality of gait ??? Pain in joint, shoulder region ??? Status post carpal tunnel release ??? Plantar wart ??? Corneal opacity, unspecified ??? Dry eyes ??? Tear film insufficiency, unspecified ??? Unspecified disorder of refraction and accommodation ??? Drusen (degenerative) of retina ??? Sleep disorder ??? Derangement of right knee ??? Torn meniscus ??? Recurrent herpes labialis ??? Nasal vestibulitis ??? Pseudophakia of both eyes ??? Chronic kidney disease ??? Astigmatism ??? Presbyopia Outpatient Prescriptions Marked as Taking for the 06/09/12 encounter (Office Visit) with Magdaleno Jennings MD Medication Sig ? ? CALCIUM CARB & LACT/VITAMIN D3 (CALCET ORAL) Take by mouth daily. ??? losartan (COZAAR) 100 mg tablet TAKE ONE TABLET BY MOUTH EVERY DAY ??? simvastatin (ZOCOR) 40 mg tablet TAKE ONE TABLET BY MOUTH EVERY DAY ??? tramadol (ULTRAM) 50 mg tablet TAKE 1 TABLET BY MOUTH EVERY 6 HOURS NEEDED FOR PAIN ??? dipyridamole-aspirin (AGGRENOX) 200-25 mg per capsule Take 1 Cap by mouth 2 times daily. ??? ibuprofen (MOTRIN) 600 mg tablet Take 1 Tab by mouth every 8 hours as needed for Pain. ??? trazodone (DESYREL) 50 mg tablet Take 3-4 Tabs by mouth at bedtime. Start at 1 tablet (50mg) atbedtime for first 3 nights, then increase to 2 tabs (100mg) ??? lansoprazole (PREVACID) 30 mg capsule Take 1 Cap by mouth daily. ??? VITAMIN B COMPLEX (B COMPLEX 50 ORAL) Take by mouth daily. Past Medical History Diagnosis Date ??? Anemia ??? Cataract Past Surgical History Procedure Date ??? Carpal tunnel release 1997 right ??? Lithotripsy 1997 ??? Tonsillectomy and adenoidectomy as child ??? Cataract removal with implant 12/19/2005 right ??? Tonsillectomy ??? Intraocular lens prosthesis insertion 11/2005 right ??? Intraocular lens prosthesis insertion 12/2005 left Family History Problem Relation Age of Onset ??? Coronary Artery Disease Mother [place] 60 d 70's ??? Blindness Mother ??? Cancer Father unknown ??? Glaucoma Neg Hx ??? Macular Degen Neg Hx ??? Diabetes Neg Hx Patient reports that she has quit smoking. She has never used smokeless tobacco. She reports that she drinks alcohol. Base Ophthalmology Exam Visual Acuity Right Left Both Dist cc 20/20 -2 20/20 -3 Near cc J1+ J1+ -2 Method: Snellen - Linear Correction: Glasses Tonometry Right Left Pressure 15 17 Method: Tonopen Time: 11:28 Wearing Rx Sphere Cylinder [place] Add Right +0.25 +0.75 038 +2.75 Left -0.25 +1.00 170 +2.75 Type: Bifocal Manifest Refraction Sphere Cylinder [place] Dist Add Near Right +0.75 +1.00 040 20/20 +3.00 J1+ Left -0.25 +1.50 175 20/20 +3.00 J1+ Dilation Both eyes: 1.0% Mydriacyl, 2.5% Phenylephrine @ 11:28 Pupils Pupils Dark Light APD Right PERRL 3 2 none Left PERRL 3 2 none Visual Sierra Right Left Result Full Full Method: Counting fingers Extraocular Movement Right Left Result Full Full Final Rx Sphere Cylinder [place] Add Right +0.75 +1.00 040 +3.00 Left -0.25 +1.50 175 +3.00 Type: Bifocal Main Ophthalmology Exam Slit Lamp Exam Right Left Lids/Lashes 1+ Meibomian gland dysfunction 1+ Meibomian gland dysfunction Conjunctiva/Sclera White and quiet White and quiet Cornea Few Punctate epithelial erosions Few Punctate epithelial erosions Anterior Chamber Deep and quiet Deep and quiet Iris Round and reactive Round and reactive Lens Posterior chamber intraocular lens Posterior chamber intraocular lens Vitreous Normal Normal Fundus Exam Right Left Disc Normal Normal C/D Ratio 0.25 0.25 Macula RPE changes Normal Vessels Normal Normal Periphery Normal Normal Neuro/Psych Oriented x3: Yes Mood/Affect: Normal DIAGNOSTIC TESTS: IMPRESSION & PLAN: Meibomian Gland Dysfunction, both eyes, mild with mild symptoms -Warm compresses applied to both eyes for 5 minutes morning and bedtime with gentle eyelid massage as needed -Use a bedside humidifier when running heat or air conditioning -Lubricant eye drops (artificial tears) such as Systane Balance (purple box), Refresh, Optive (consider preservative free varieties and DO NOT use Visine or Clear Eyes) - 1 drop each eye 4 times a day -Fish oil, flax seed oil or [place] 3 - take 2 tablets or tablespoons a day -Erythromycin prescription eye ointment - apply a 1 inch strip ONTO each eyeball at BEDTIME, after warm compresses and drops (pull lower lid down, look up, and squeeze ointment onto eyeball) Pseudophakia, both eyes -observe Astigmatism with presbyopia -updated glasses Rx provided to patient I have reviewed the patient's past medical, family, social and surgical history. I have also reviewed the patient's medications, allergies, and problem list. I performed my own HPI and have reviewed the tech's ROS as well. I personally completed this exam myself. Magdaleno Jennings MD I am scribing for Magdaleno Jennings MD, while he is personally performing the service. Patient Education Topic: Blepharitis Method: Verbal Taught to: Patient Barriers: None Outcomes: independent and verbalized understanding Signature: RAYMUNDO Batres The patient was instructed to call our office or go to emergency room if worse vision, worse symptoms, or new/other concerns arise. documented in this encounter Plan of Treatment Upcoming Encounters Date Type Department Care Team (Late st Contact Info) Description 02/03/2024 12:45 EDT Office Visit [facility] Ophthalmology [facility] [address] [place], [place] [address] Goldy Guzman MD [address] [place] [phone] documented as of this encounter Visit Diagnoses Diagnosis Blepharitis, unspecified- Primary Pseudophakia of both eyes Lens replaced by other means Astigmatism Astigmatism, unspecified Presbyopia documented in this encounter Discontinued Medications Medication Sig Discontinue Reason Start Date End Da te Calcium-Cholecalciferol , D3, (CALCIUM WITH VITAMIN D) 600-400 mg-unit Tab Take 1 Tab by mouth daily. Patient Stopped Taking 06/09/2012 documented as of this encounter Historical Medications * This list may reflect changes made after this encounter. Medication Sig Dispensed Refills Start Date End Date CALCIUM CARB & LACT/VITAMIN D3 (CALCET ORAL) Take by mouth daily. added in this encounter Eye Exam Visual Acuity (Snellen - Linear) Right eye Left eye Dist cc 20/20 -2 20/20 -3 Near cc J1+ J1+ -2 Correction: Glasses Tonometry (Tonopen, 11:28) Right eye Left eye Pressure 15 17 Pupils Pupils Dark Light APD Right eye PERRL 3 2 none Left eye PERRL 3 2 none Visual Sierra (Counting fingers) Right eye Left eye Full Full Extraocular Movement Right eye Left eye Full Full Neuro/Psych Oriented x3: Yes Mood/Affect: Normal Dilation Both eyes: 1.0% Mydriacyl, 2 .5% Phenylephrine @ 11:28 Slit Lamp Exam Right eye Left eye Lids/Lashes 1+ Meibomian gland dysfunction 1 + Meibomian gland dysfunction Conjunctiva/Sclera White and quiet White and haris et Cornea Few Punctate epithelial erosions Few Punctate epithelial erosions Anterior Chamber Deep and quiet Deep and quiet Iris Round and reactive Round and judi ctive Lens Posterior chamber in traocular lens Posterior chamber intraocular lens Vitreous Normal Normal Fundus Exam Right eye Left eye Disc Normal Normal C/D Ratio 0.25 0.25 Macula RPE changes Normal Vessels Normal Normal Periphery Normal Normal Wearing Rx Sphere Cylinder [place] Add Right eye +0.25 +0.75 038 +2.75 Left eye -0.25 +1.00 170 +2.75 Type: Bifocal Manifest Refraction Sphere Cylinder [place] Dist VA Add Near VA Right eye +0.75 +1.00 040 20/20 +3.00 J1+ Left eye -0.25 +1.50 175 20/20 +3.00 J1+ Final Rx Sphere Cylinder [place] Add Right eye +0.75 +1.00 040 +3.00 Left eye -0.25 +1.50 175 +3.00 Type: Bifocal Care Teams Gold Leaf Printer Relationship Specialty Start Date End Date Star Vasquez MD [address] [place] [address] PCP - General 12/02/08 09/03/12 documented as of this encounter
--- OUTSIDE RECORDS SUMMARY | 2024-01-12 02:07 | XMS_ITS | Encounter Summary ---
Author Organization [facility] Address [address] [place] [address] Care Team Providers Care Computer Forensics Technician Name Role Phone Star Vasquez MD Primary Care Provider [phone] Reason for Visit * Reason Onset Date Comments Medications Refill 02/21/2012 AGGRENOX Encounter Details Date Type Department Care Team (Late st Contact Info) Description 02/21/2012 Refill [facility] Family [address] [address] Star Vasquez MD [address] [place] [phone] Medications Refill (AGGRENOX) Social History Tobacco Use Types Packs/Day Years [...] Dispensed Refills Start Date End Da te dipyridamole-aspirin (AGGRENOX) 200-25 mg per capsuleIndications:CVA (cerebral infarction) Take 1 Cap by mouth 2 times daily. 180 Cap 1 02/21/2012 08/04/2012 documented in this encounter Plan of Treatment Upcoming Encounters Date Type Department Care Team (Late st Contact Info) Description 02/03/2024 12:45 EDT Office Visit [facility] Ophthalmology [facility] [address] [place] [address] Goldy Guzman MD [address] [place] [address] documented as of this encounter Visit Diagnoses Diagnosis CVA (cerebral infarction)- Primary Unspecified cerebral artery occlusion with cerebral infarction documented in this encounter Discontinued Medications Medication Sig Discontinue Reason Start Date End Da te dipyridamole-aspirin (AGGRENOX) 200-25 mg per capsuleIndications:CVA (cerebral infarction) Take 1 Cap by mouth 2 times daily. Reorder 05/09/2011 02/21/2012 documented as of this encounter Care Teams Computer Forensics Technician Relationship Specialty Start Date End Date Star Vasquez MD [address] [place] [phone] PCP - General 12/02/08 09/03/12 documented as of this encounter
--- OUTSIDE RECORDS SUMMARY | 2024-01-12 02:07 | XMS_ITS | Encounter Summary ---
Author Organization [facility] Address [address] [place] [address] Care Team Providers Care High School Assistant Principal Name Role Phone Star Vasquez MD Primary Care Provider [phone] Macie Guevara [facility] Primary Care Provi moisés Star Winter MD Primary Care Provider [phone] Sheela Storey APRN Primary Care Provider [phone] Reason for Visit * Reason Onset Date Comments Medications Refill 03/21/2012 Encounter Details Date Type Department Care Team (Late st Contact Info) Description 03/21/2012 Refill [facility] Family Medicine [address] [address] Star Vasquez MD [address] [place] [phone] Medications Refill Social History Tobacco Use Types [...] MOUTH EVERY 6 HOURS NEEDED FOR PAIN 30 Each 5 03/21/2012 09/01/2012 documented in this encounter Miscellaneous Notes * Telephone Encounter - Carlotta Browne - 03/23/2012 0932 EDT Patient has an appointment on 03/30/[address] Vasquez. Patient has 2 pills left documented in this encounter Plan of Treatment Upcoming Encounters Date Type Department Care Team (Late st Contact Info) Description 02/03/2024 12:45 EDT Office Visit [facility] Ophthalmology [facility] [address] [place] [address] Goldy Guzman MD [address] [place] [address] documented as of this encounter Visit Diagnoses Not on filedocumented in this encounter Discontinued Medications Medication Sig Discontinue Reason Start Date End Da te tramadol (ULTRAM) 50 mg tablet Take 1 Tab by mouth every 6 hours as needed for Pain. Reorder 12/16/2011 03/21/2012 documented as of this encounter Care Teams High School Assistant Principal Relationship Specialty Start Date End Date Star Vasquez MD [address] [place] [address] PCP - General 12/02/08 09/03/12 Macie Guevara FNP [address] [place] [address],[address] [place] [address] PCP - General 09/04/12 09/21/12 Star Winter MD [address] [place] [address] PCP - General 09/22/12 12/15/13 Sheela Storey APRN [address] [address] PCP - General 12/16/13 documented as of this encounter
--- OUTSIDE RECORDS SUMMARY | 2024-01-12 02:07 | XMS_ITS | Encounter Summary ---
Author Organization [facility] Address [address] [place] [address] Care Team Providers Care Anthropologist Name Role Phone Macie Guevara [facility] Primary Care Provi moisés Reason for Visit * Reason Comments Eye Problem Pt feels her eyes ar e not feeling better after following regiment for MGD. Stopped treatment of warm compresses, AT & ointment about 3 weeks ago. Encounter Details Date Type Department Care Team (Late st Contact Info) Description 09/17/2012 10:45 EDT Office Visit [facility] Ophthalmology [facility] [address] [place] [address] Magdaleno Jennings MD [address] [place] [phone] Social History Tobacco Use Types Packs/Day Years [...] * Patient Instructions* Magdaleno Jennings MD - 09/17/2012 11:20 EDT Diagnosis: Meibomian Gland Dysfunction, both eyes, moderate with moderate symptoms -Warm compresses applied to both eyes for 5 minutes morning and bedtime with gentle eyelid massage as needed -Use a bedside humidifier when running heat or air conditioning -Lubricant eye drops (artificial tears) such as Systane Balance (purple box), Refresh, Optive (consider preservative free varieties and DO NOT use Visine or Clear Eyes) - 1 drop each eye 4-6 times a day -Fish oil, flax seed oil or [place] 3 - take 3 tablets or tablespoons a day -Erythromycin prescription eye ointment - apply a 1 inch strip ONTO each eyeball at BEDTIME, after warm compresses and drops (pull lower lid down, look up, and squeeze ointment onto eyeball) -Fluorometholone (FML) prescription eye drop - 1 drop each eye twice a day for 2 weeks, once a day for two weeks, then stop. -Doxycycline 100mg pills by mouth at bedtime for 90 days, then stop. Wear hat/sunglasses/sunscreen in sun, stop if severe gastrointestinal upset or allergic reaction or diarrhea. Women on oral contraceptives: use alternate control. Blepharitis: After Your Visit Your Care Instructions [...] Refills Start Date End Da te doxycycline (VIBRA-TABS) 100 mg tabletIndications:Blepha ritis, unspecified Take 1 Tab by mouth at bedtime for 90 days. 90 Tab 1 09/17/2012 12/16/2012 fluorometholone (FML) 0.1 % ophthalmic suspensionIndications:Bl epharitis, unspecified Place 1 Drop into both eyes 3 times daily. Dispense 10 ml bottle - if not available then 5 ml bottle. See comments for allowable substitute. 1 Bottle 0 09/17/2012 12/17/2013 erythromycin (ROMYCIN) 5 mg/gram (0.5 %) ophthalmic ointmentIndications:Blep haritis, unspecified Place 0.5 inch ribbon into both eyes at bedtime for 30 days. 1 Tube 11 09/17/2012 10/17/2012 documented in this encounter Progress Notes * Magdaleno Jennings MD - 09/17/2012 1120 EDT Chief Complaint Patient presents with ??? Eye Problem Pt feels her eyes are not feeling better after following regiment for MGD. Stopped treatment of warm compresses, AT & ointment about 3 weeks ago. HPI The patient is a 71 y.o. female Right Eye: Blurred Vision;Mucous / Discharge Left Eye: Blurred Vision;Mucous / Discharge Visual Aid: Glasses Current Rx Age Location: Both eyes Pain: 0 - No pain Quality: Severity: Moderate Duration: Months Timing: Constant Lasts: Continuous Context: Modifying factors: Associated Signs & Symptoms: Attestation: ROS Constitutional: NL ENT/Mouth Cardiovascular: Respiratory: Gastrointestinal: Genitourinary: Musculoskeletal: Integumentary: Neurologic: Psychiatric: Endocrine: Hematologic: Immunologic: Molding Machine Tender: Exposures: None Other: Attestation: Allergies include: Review [...] Outpatient Prescriptions Marked as Taking for the 09/17/12 encounter (Office Visit) with Magdaleno Jennings MD Medication Sig ??? tramadol (ULTRAM) 50 mg tablet Take 1 Tab by mouth every 6 hours as needed for Pain. ??? dipyridamole-aspirin (AGGRENOX) 200-25 mg per capsule Take 1 Cap by mouth 2 times daily. ? ? CALCIUM CARB & LACT/VITAMIN D3 (CALCET ORAL) Take by mouth daily. ??? losartan (COZAAR) 100 mg tablet TAKE ONE TABLET BY MOUTH EVERY DAY ??? simvastatin (ZOCOR) 40 mg tablet TAKE ONE TABLET BY MOUTH EVERY DAY ??? ibuprofen (MOTRIN) 600 mg tablet Take [...] History Procedure Date ??? Carpal tunnel release 1998 right ??? Lithotripsy 1998 ??? Tonsillectomy and adenoidectomy as child ??? Cataract removal with implant 12/19/2005 right ??? Tonsillectomy ??? Intraocular lens prosthesis insertion 11/2005 right ??? Intraocular lens prosthesis insertion 12/2005 left Family History Problem Relation Age of Onset ??? Coronary Artery Disease Mother MS 60 d 70's ??? Blindness Mother ??? Cancer Father unknown ??? Glaucoma Neg Hx ??? Macular Degen Neg Hx ??? Diabetes Neg Hx Patient reports that she has quit smoking. She has never used smokeless tobacco. She reports that she drinks alcohol. Base Ophthalmology Exam Visual Acuity Right Left Both Dist cc 20/25 +3 20/25 +2 Method: Snellen - Linear Correction: Glasses Tonometry Right Left Pressure 16 15 Method: Tonopen Time: 11:09 Pupils Pupils Right PERRL Left PERRL Main Ophthalmology Exam Slit Lamp Exam Right Left Lids/Lashes 2+ Meibomian gland dysfunction 2+ Meibomian gland dysfunction Conjunctiva/Sclera White and quiet White and quiet Cornea moderate inferior Punctate epithelial erosions moderate inferior Punctate epithelial erosions Anterior Chamber Deep and quiet Deep and quiet Iris Round and reactive Round and reactive Lens Posterior chamber intraocular lens Posterior chamber intraocular lens Neuro/Psych Oriented x3: Yes Mood/Affect: Normal DIAGNOSTIC TESTS: IMPRESSION & PLAN: Meibomian Gland Dysfunction, both eyes, moderate with moderate symptoms -Warm compresses applied to both eyes for 5 minutes morning and bedtime with gentle eyelid massage as needed -Use a bedside humidifier when running heat or air conditioning -Lubricant eye drops (artificial tears) such as Systane Balance (purple box), Refresh, Optive (consider preservative free varieties and DO NOT use Visine or Clear Eyes) - 1 drop each eye 4-6 times a day -Fish oil, flax seed oil or [place] 3 - take 3 tablets or tablespoons a day -Erythromycin prescription eye ointment - apply a 1 inch strip ONTO each eyeball at BEDTIME, after warm compresses and drops (pull lower lid down, look up, and squeeze ointment onto eyeball) -Fluorometholone (FML) prescription eye drop - 1 drop each eye twice a day for 2 weeks, once a day for two weeks, then stop. -Doxycycline 100mg pills by mouth at bedtime for 90 days, then stop. Wear hat/sunglasses/sunscreen in sun, stop if severe gastrointestinal upset or allergic reaction or diarrhea. Women on oral contraceptives: use alternate control. -Follow up in 12 months or sooner if worse symptoms. I have reviewed the patient's past medical, family, social and surgical history. I have also reviewed the patient's medications, allergies, and problem list. I performed my own HPI and have reviewed the tech's ROS as well. I personally completed this exam myself. Magdaleno Jennings MD I am scribing for Magdaleno Jennings MD, while he is personally performing the service. Patient Education Topic: blepharitis/MGD Method: Verbal Taught to: Patient Barriers: None Outcomes: independent Signature: Magdaleno Jennings MD The patient was instructed to call our office or go to emergency room if worse vision, worse symptoms, or new/other concerns arise. documented in this encounter Plan of Treatment Upcoming Encounters Date Type Department Care Team (Late st Contact Info) Description 02/03/2024 12:45 EDT Office Visit [facility] Ophthalmology [facility] [address] [place] [address] Goldy Guzman MD [address] [place] [address] documented as of this encounter Visit Diagnoses Diagnosis Blepharitis, unspecified- Primary documented in this encounter Eye Exam Visual Acuity (Snellen - Linear) Right eye Left eye Dist cc 20/25 +3 20/25 +2 Correction: Glasses Tonometry (Tonopen, 11:09) Right eye Left eye Pressure 16 15 Pupils Pupils Right eye PERRL Left eye PERRL Neuro/Psych Oriented x3: Yes Mood/Affect: Normal External Exam Right eye Left eye External Rosacea Rosacea Slit Lamp Exam Right eye Left eye Lids/Lashes 2+ Meibomian gland dysfunction 2 + Meibomian gland dysfunction Conjunctiva/Sclera White and quiet White and haris et Cornea moderate inferior Pu nctate epithelial erosions moderate inferior Punctate epithelial erosions Anterior Chamber Deep and quiet Deep and quiet Iris Round and reactive Round and judi ctive Lens Posterior chamber in traocular lens Posterior chamber intraocular lens Care Teams Anthropologist Relationship Specialty Start Date End Date Macie Guevara FNP [address] [facility],[address] [place] [address] PCP - General 09/04/12 09/21/12 documented as of this encounter
--- OUTSIDE RECORDS SUMMARY | 2024-01-12 02:07 | XMS_ITS | Encounter Summary ---
Author Organization [facility] Address [address] [place] [address] Care Team Providers Care College Football Coach Name Role Phone Star Vasquez MD Primary Care Provider [phone] Encounter Details Date Type Department Care Team (Late st Contact Info) Description 08/31/2011 Results Only [facility] Family [address] [address] Garry Henry MD Social History Tobacco Use Types Packs/Day Years [...] [facility] Ophthalmology [facility] [address] [place] [address] Goldy Guzman MD [address] [place] [phone] documented as of this encounter Procedures Procedure Name Priority Date/Time Associated Diagnosis Comments BASIC METABOLIC PANEL ([facility]) Routine 08/31/2011 11:03 EST ALT Routine 08/31/2011 11:03 EST TSH Routine 08/31/2011 11:03 EST LIPID PROFILE (INCLUDES CHOLESTEROL, TRIGLYCERIDES, HDL, LDL) Routine 08/31/2011 11:03 EST PROTIME Routine 08/31/2011 10:59 EST documented in this encounter Results * TSH (08/31/2011 11:03 EST) TSH, External 1.69 0.35 - 5.50 uIU/mL [facility] 08/31/2011 11:0 3 EST 08/31/2011 11:04 EST Narrative [facility] - 09/02/2011 9:58 EST Does PT Have a Latex Allergy? NO NANCY expires: 07/27/08 Medical Necessity Pass ICD-9 272.4 Garry Henry MD CHEMISTRY & BLOOD G ORDERABLES Performing Organization Address City/[facility] Co de Phone Number [facility] * ALT (08/31/2011 11:03 EST) ALT, External 20 12 - 78 U/L [facility] 08/31/2011 11:0 3 EST 08/31/2011 11:04 EST Narrative [facility] - 09/02/2011 9:58 EST Does PT Have a Latex Allergy? NO NANCY expires: 07/27/08 Medical Necessity Pass ICD-9 272.4 Garry Henry MD CHEMISTRY & BLOOD G ORDERABLES Performing Organization Address City/[facility]/ZIP Co de Phone Number [facility] * LIPID PROFILE (INCLUDES CHOLESTEROL, TRIGLYCERIDES, HDL, LDL) (08/31/2011 11:03 EST) Triglycerides, External 69 35 - 150 mg/dL [facility] Cholesterol, External 140 120 - 200 mg/dL [facility] HDL, External 57 40 - 60 mg/dL [facility] LDL, External 69 60 - 100 mg/dL [facility] 08/31/2011 11:0 3 EST 08/31/2011 11:04 EST Narrative [facility] - 09/02/2011 9:58 EST Does PT Have a Latex Allergy? NO NANCY expires: 07/27/08 Medical Necessity Pass ICD-9 272.4 Garry Henry MD CHEMISTRY & BLOOD G ORDERABLES Performing Organization Address [facility] Co de Phone Number [facility] * (ABNORMAL) BASIC METABOLIC PANEL ([facility]) (08/31/2011 11:03 EST) Bun, External 25(H) 7 - 18 mg/dL [facility] Calcium, External 8.8 8.5 - 10.1 mg/dL [facility] Chloride, External 108(H) 98 - 107 mEq/L [facility] CO2, External 30 21 - 32 mEq/L [facility] Creatinine, External 0.6 0.5 - 1.4 mg/dL [facility] GFR, Alonzo/Est., External > 60 [facility] Comment: Chronic renal impairment is defined as GFR <60 Multiply result by 1.210 for patients. Potassium, External 4.6 3.5 - 5.0 mEq/L [facility] Sodium, External 144 135 - 145 mEq/L [facility] 08/31/2011 11:0 3 EST 08/31/2011 11:04 EST Narrative [facility] - 09/02/2011 9:58 EST Does PT Have a Latex Allergy? NO NANCY expires: 07/27/08 Medical Necessity Pass ICD-9 272.4 Garry Henry MD CHEMISTRY & BLOOD G ORDERABLES Performing Organization Address City/[facility]/ZIP Co de Phone Number [facility] * PROTIME (08/31/2011 10:59 EST) INR, External 1.0 0.9 - 1.2 [facility] Comment: Date and Time for last dose: 08/31/11 0700 Low intensity INR: 2.0-3.0 High intensity INR: Consult Coag Dept. Protime, External 10.6 10.1 - 12.6 SECONDS [facility] 08/31/2011 10:5 9 EST 08/31/2011 11:03 EST Garry Henry MD HEMATOLOGY & PF4 OR DERABLES [facility] documented in this encounter Visit Diagnoses Not on filedocumented in this encounter Care Teams College Football Coach Relationship Specialty Start Date End Date Star Vasquez MD [address] [place] [address] PCP - General 12/02/08 09/03/12 documented as of this encounter
--- OUTSIDE RECORDS SUMMARY | 2024-01-12 02:07 | XMS_ITS | Encounter Summary ---
Author Organization [facility] Address [address] [place] [address] Care Team Providers Care Dieing Out Machine Operator Name Role Phone Star Vasquez MD Primary Care Provider [phone] Reason for Visit * Reason Onset Date Comments Medications Refill 08/04/2012 Encounter Details Date Type Department Care Team (Late st Contact Info) Description 08/04/2012 Refill [facility] Family [address] [address] Star Vasquez MD [address] [place] [phone] Medications Refill Social History Tobacco Use Types [...] 2 times daily. 180 Cap 1 08/04/2012 documented in this encounter Plan of Treatment Upcoming Encounters Date Type Department Care Team (Late st Contact Info) Description 02/03/2024 12:45 EDT Office Visit [facility] Ophthalmology [facility] [address] [place], [place] [id number] Goldy Guzman MD [address] [place] [address] documented as of this encounter Visit Diagnoses Diagnosis CVA (cerebral infarction)- Primary Unspecified cerebral artery occlusion with cerebral infarction documented in this encounter Discontinued Medications Medication Sig Discontinue Reason Start Date End Da te dipyridamole-aspirin (AGGRENOX) 200-25 mg per capsuleIndications:CVA (cerebral infarction) Take 1 Cap by mouth 2 times daily. Reorder 02/21/2012 08/04/2012 documented as of this encounter Care Teams Dieing Out Machine Operator Relationship Specialty Start Date End Date Star Vasquez MD [address] [place] [phone] PCP - General 12/02/08 09/03/12 documented as of this encounter
--- OUTSIDE RECORDS SUMMARY | 2024-01-12 02:07 | XMS_ITS | Encounter Summary ---
Author Organization [facility] Address [address] [place] [address] Care Team Providers Care Cost Manager Name Role Phone Star Vasquez MD Primary Care Provider [phone] Reason for Referral * Consult (Routine) - Closed Specialty Diagnoses / Procedures Referred By Layne romeo Referred To Contact Diagnoses Nasal itching Star Vasquez MD [address] [address] Referral ID Status Reason Start Date Expiration Date V isits Requested Visits Authorized [id number] Closed Specialty Services Required 04/01/2011 1 1 Question Answer Reason for Request: recurrent nasal sxs - crusting, * Consult (Routine) - Closed Specialty Diagnoses / Procedures Referred By Layne romeo Referred To Contact Diagnoses Memory difficulties Star Vasquez MD [address] [place] [address] Referral ID Status Reason Start Date Expiration Date V isits Requested Visits Authorized [id number] Closed Specialty Services Required 04/01/2011 1 1 Question Answer Reason for Request: memory problems Comments referral to [facility] Memory [facility] Reason for Visit * Reason Comments Follow-up from visit 03/08--not enough time last visit to address all issues Encounter Details Date Type Department Care Team (Late st Contact Info) Description 04/01/2011 11:00 EDT Office Visit [facility] Medicine [address] [address] Star Vasquez MD [address] [place] [address] Sleep disorder (Primary Dx); Recurrent herpes labialis; Need for influenza vaccination; Plantar wart; Memory difficulties; Nasal itching; Need for prophylactic vaccination and inoculation against influenza Social History Tobacco Use Types Packs/Day Years [...] Sign Reading Time Taken Comments Blood Pressure 142/70 04/01/2011 1108 EDT Pulse 68 04/01/2011 1108 EDT Temperature - - Respiratory Rate 18 04/01/2011 1108 EDT Oxygen Saturation - - Inhaled Oxygen Concentration - - Weight 71.7 kg (158 lb) 04/01/2011 1108 EDT Height - - Body Mass Index 29.37 08/31/2010 1451 EST documented in this encounter Patient Instructions * Patient Instructions* Star Vasquez MD - 04/01/2011 11:37 EDT Soak feet in warm water for 20 minutes each day to soften the calluses and warts. Continue to file the calluses and warts every few days. documented in this encounter Ordered Prescriptions Prescription Sig Dispensed Refills Start Date End Da te trazodone (DESYREL) 50 mg tabletIndications:Sleep disorder Take 3-4 Tabs by mouth at bedtime. Start at 1 tablet (50mg) at bedtime for first 3 nights, then increase to 2 tabs (100mg) 120 Tab 4 04/01/2011 12/16/2011 penciclovir (DENAVIR) 1 % creamIndications:Recurre nt herpes labialis Apply topically every 2 hours for 4 days. Use as needed for cold sores on lips. 1 Tube 2 04/01/2011 04/05/2011 documented in this encounter Progress Notes * Star Vasquez MD - 04/01/2011 1125 EDT Subjective: Patient ID: Randi Oswald is an 70 y.o. female. Chief Complaint Patient presents with ??? Follow-up from visit 03/08--not enough time last visit to address all issues HPI Comments: RIGHT FOOT - 2 plantar warts, great toe black & blue, and callous on 1st toe MCP NASAL - gets crusting of nose, inside, has had this for a long time, is worried about it COLD SORES -gets cracked lips, has Bactoban for herpes simplex but bactroban does not always help. Gets small blister, itches, painful. A friedn uses [employer] [facility] - word-finding problems, forgets tasks,poor short-term memory, causing her a fair amount of stress Patient Active Problem List Diagnoses Code ??? CVA (cerebral infarction) 434.91FD ??? Hypertension 401.9AJ ??? Hyperlipidemia 272.4S ??? Nephrolithiasis 592.0L ??? Chronic anxiety 300.00AW ??? GERD (gastroesophageal reflux disease) 530.81S ??? Environmental allergies 477.9AR ??? Anemia 285.9AA ??? Back pain 724.5E ??? Osteopenia 733.90X ??? Colon polyp 211.3L ??? Chronic neck pain 723.1BC ??? Trigger finger 727.03B ??? Abnormality of gait 781.2 ??? Pain in joint, shoulder region 719.41 ??? S/P carpal tunnel release V45.89TY ??? Plantar wart 078.12 ??? Lens replaced by other means V43.1 ??? Unspecified corneal opacity 371.00 ??? Dry eyes 375.15D ??? Unspecified tear film insufficiency 375.15 ??? Unspecified disorder of refraction and accommodation 367.9 ??? 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 Sleep disorder 780.50E ??? Derangement of right knee 717.9Y ??? Torn meniscus 836.2H Past Medical History Diagnosis Date ??? Allergy ??? Anemia ??? Cataract ??? Chronic kidney disease Current outpatient prescriptions ordered prior to encounter Medication Sig Dispense Refill ??? trazodone (DESYREL) 50 mg tablet Take by mouth at bedtime. Start at 1 tablet (50mg) at bedtime for first 3 nights, then increase to 2 tabs (100mg) 60 Tab 0 ??? dipyridamole-aspirin (AGGRENOX) 200-25 mg per capsule Take 1 Cap by mouth 2 times daily. 180 Cap 1 ??? losartan (COZAAR) 100 mg tablet Take 1 Tab by mouth daily. 90 Tab 1 ??? simvastatin (ZOCOR) 40 mg tablet Take 1 Tab by mouth daily. 90 Tab 1 ??? loratadine (CLARITIN) 10 mg tablet Take 1 Tab by mouth daily. 90 Tab 2 ??? tramadol (ULTRAM) 50 mg tablet Take 1 Tab by mouth every 6 hours as needed for Pain. 30 Tab 1 ??? fluticasone (FLONASE) 50 mcg/Actuation nasal spray by Nasal route. 2 sprays once daily each nostril for 1 week, then 1 spray daily each side. 1 Bottle 5 ??? ibuprofen (MOTRIN) 600 mg tablet Take 1 Tab by mouth every 8 hours as needed for Pain. 60 Tab 5 ??? Cod Liver Oil Cap Take by mouth. ??? VITAMIN B COMPLEX (B COMPLEX 50 ORAL) Take by mouth daily. ??? Calcium-Cholecalciferol, D3, (CALCIUM WITH VITAMIN D) 600-400 mg-unit Tab Take 1 Tab by mouth daily. ??? Cyanocobalamin (VITAMIN B-12) 2,000 mcg TbSR Take by mouth daily. No Known Allergies Social History Substance Use Topics ??? Smoking status: Former Smoker -- 30 years ??? Smokeless tobacco: Not on file ??? Alcohol Use: Yes rare ROS - See HPI Objective: BP 142/70 Pulse 68 Resp 18 Wt 71.668 kg (158 lb) Physical Exam Constitutional: She is oriented to person, place, and time. She appears well- developed and well-nourished. Non-toxic appearance. HENT: Nose: No rhinorrhea. Mouth/Throat: Mucous membranes are normal. No oral lesions. grossly normal Eyes: Conjunctivae are normal. No scleral icterus. Cardiovascular: Regular rhythm. Pulmonary/Chest: Effort normal. Musculoskeletal: plantar warts and callous on right foot Neurological: She is alert and oriented to person, place, and time. Gait normal. GCS eye subscore is 4. GCS verbal subscore is 5. GCS motor subscore is 6. Skin: Skin is warm and dry. No rash noted. Assessment: Plan: Randi was seen today for follow-up. Diagnoses and associated orders for this visit: Sleep disorder - increase dose of: - trazodone (DESYREL) 50 mg tablet; Take 3-4 Tabs by mouth at bedtime. Start at 1 tablet (50mg) at bedtime for first 3 nights, then increase to 2 tabs (100mg) Recurrent herpes labialis - penciclovir (DENAVIR) 1 % cream; Apply topically every 2 hours for 4 days. Use as needed for coldsores on lips. Need for influenza vaccination - Influenza vaccine greater than or equal to 3yo split IM Plantar wart - RTC for shave; warm soaks and filing off at home in meantime Memory difficulties - Ambulatory Consult [facility] Center at [facility] Nasal crusting - Ambulatory Consult Ent documented in this encounter Plan of Treatment Upcoming Encounters Date Type Department Care Team (Late st Contact Info) Description 02/03/2024 12:45 EDT Office Visit [facility]hthal[facility] [address] [address] Goldy Guzman MD [address] [place] [phone] Scheduled Referrals Name Type Priority Associated Diagnoses Orde r Schedule [facility] Outpatient Referral Routine Memory difficulties Ordered: 04/01/2011 [facility] CONSULT [facility] Outpatient Referral Routine Nasal Itching Ordered: 04/01/2011 documented as of this encounter Visit Diagnoses Diagnosis Sleep disorder- Primary Sleep disturbance, unspecified Recurrent herpes labialis Herpes simplex without mention of complication Need for influenza vaccination Need for prophylactic vaccination and inoculation against influenza Plantar wart Memory difficulties Memory loss Nasal itching Other diseases of nasal cavity and sinuses Need for prophylactic vaccination and inoculation against influenza documented in this encounter Discontinued Medications Medication Sig Discontinue Reason Start Date End Da te trazodone (DESYREL) 50 mg tabletIndications:Sleep disorder Take by mouth at bedtime. Start at 1 tablet (50mg) at bedtime for first 3 nights, then increase to 2 tabs (100mg) 03/08/2011 04/01/2011 documented as of this encounter Orders Immunization/Injection Count Last Ordered Date First Ordered Date INFLUENZA VACCINE =>3YO SPLIT IM 1 04/01/20 11 documented in this encounter Care Teams Cost Manager Relationship Specialty Start Date End Date Star Vasquez MD [address] [place] [address] PCP - General 12/02/08 09/03/12 documented as of this encounter
--- OUTSIDE RECORDS SUMMARY | 2024-01-12 02:07 | XMS_ITS | Encounter Summary ---
Author Organization [facility] Address [address] [place] [address] Care Team Providers Care Bushler Name Role Phone Star Vasquez MD Primary Care Provider [phone] Reason for Visit * Reason Comments Follow-up seen here Sat. with lt. headedness and dizziness--one episode since lasted approx 20 min. --hasn't felt well since--diminished energy having to rest often--had blood work which was normal per pt --also having some short term memory issues Medications Refill simvastatin Encounter Details Date Type Department Care Team (Late st Contact Info) Description 09/06/2011 15:00 EST Office Visit [facility] [address] [place] [address] Star Vasquez MD [address] [place] [phone] CVA (cerebral infarction) (Primary Dx); Hypertension; Hyperlipidemia Social History Tobacco Use Types Packs/Day Years [...] Reading Time Taken Comments Blood Pressure 142/70 09/06/2011 1458 EST Pulse 88 09/06/2011 1458 EST Temperature 37.1 ??C (98.7 ??F) 09/06/2011 1458 EST Respiratory Rate 18 09/06/2011 1458 EST Oxygen Saturation - - Inhaled Oxygen Concentration - - Weight 68 kg (150 lb) 09/06/2011 1458 EST Height - - Body Mass Index 27.44 04/25/2011 1102 EDT documented in this encounter Ordered Prescriptions Prescription Sig Dispensed Refills Start Date End Da te metoprolol (LOPRESSOR) 50 mg tabletIndications:Hyperten wilder Take 1 Tab by mouth daily. 60 Tab 3 09/07/2011 09/09/2011 losartan (COZAAR) 100 mg tabletIndications:Hyperten wilder Take 1 Tab by mouth daily. 90 Tab 1 09/07/2011 05/06/2012 simvastatin (ZOCOR) 40 mg tabletIndications:Hyperlip idemia Take 1 Tab by mouth daily. 90 Tab 3 09/07/2011 05/06/2012 lorazepam (ATIVAN) 1 mg tabletIndications:CVA (cerebral infarction) Take 1 Tab by mouth once for 1 dose. 1 Tab 0 09/06/2011 10/18/2011 documented in this encounter Progress Notes * Julianne Proctor - 09/06/2011 1541 EST Script for lorazapam called into pharmacy. * Star Vasquez MD - 09/06/2011 1517 EST Subjective: Patient ID: Randi Oswald is an 70 y.o. female. Chief Complaint Patient presents with ??? Follow-up seen here Sat. with lt. headedness and dizziness--one episode since lasted approx 20 min. --hasn't felt well since--diminished energy having to rest often--had blood work which was normal per pt --also having some short term memory issues ??? Medications Refill simvastatin HPI Comments: SICK - has been unwell for about 2 weeks, almost fainted in congregation. Feels fatigued, low energy, napping. Some nausea. has some trouble with memory, speech, focus, equilibrium/balance, stumbling, trouble holding pencil but could not figure out what was wrong. She also adds that these sxs have been in termittent/recurrent for much longer, perhaps as much as 2 years according to some of her friends. She is worried that she is having TIAs or strokes. Medications Refill Patient Active Problem List Diagnoses ??? CVA (cerebral infarction) ??? Hypertension ??? Hyperlipidemia ??? Nephrolithiasis ??? Chronic anxiety ??? GERD (gastroesophageal reflux disease) ??? Environmental allergies ??? Anemia ??? Back pain ??? Osteopenia ??? Colon polyp ??? Chronic neck pain ??? Trigger finger ??? Abnormality of gait ??? Pain in joint, shoulder region ??? S/P carpal tunnel release ??? Plantar wart ??? Unspecified corneal opacity ??? Dry eyes ??? Unspecified tear film insufficiency ??? Unspecified disorder of refraction and accommodation ??? Drusen (degenerative) of retina ??? Sleep disorder ??? Derangement of right knee ??? Torn meniscus ??? Recurrent herpes labialis ??? Nasal vestibulitis ??? Pseudophakia of both eyes Past Medical History Diagnosis Date ??? Allergy ??? Anemia ??? Cataract ??? Chronic kidney disease ??? Unspecified cerebral artery occlusion with cerebral infarction ??? Environmental allergies Current Outpatient Prescriptions on File Prior to Visit Medication Sig Dispense Refill ??? lansoprazole (PREVACID) 30 mg capsule Take 1 Cap by mouth daily. 30 Cap 11 ??? losartan (COZAAR) 100 mg tablet Take 1 Tab by mouth daily. 90 Tab 1 ??? dipyridamole-aspirin (AGGRENOX) 200-25 mg per capsule Take 1 Cap by mouth 2 times daily. 180 Cap 1 ??? trazodone (DESYREL) 50 mg tablet Take 3-4 Tabs by mouth at bedtime. Start at 1 tablet (50mg) atbedtime for first 3 nights, then increase to 2 tabs (100mg) 120 Tab 4 ??? simvastatin (ZOCOR) 40 mg tablet Take 1 Tab by mouth daily. 90 Tab 1 ??? tramadol (ULTRAM) 50 mg tablet Take [...] needed for Pain. 60 Tab 5 ??? VITAMIN B COMPLEX (B COMPLEX 50 ORAL) Take by mouth daily. ??? Calcium-Cholecalciferol, D3, (CALCIUM WITH VITAMIN D) 600-400 mg-unit Tab Take 1 Tab by mouth daily. No Known Allergies Social History Substance Use Topics ??? Smoking status: Former Smoker -- 30 years ??? Smokeless tobacco: Not on file ??? Alcohol Use: Yes rare ROS - See HPI Objective: BP 142/70 Pulse 88 Temp(Src) 37.1 ??C (98.7 ??F) (Oral) Resp 18 Wt 68.04 kg (150 lb) Physical Exam Constitutional: She is oriented to person, place, and time. She appears well- developed and well-nourished. Non-toxic appearance. Eyes: Conjunctivae are normal. No scleral icterus. Cardiovascular: Regular rhythm. Pulmonary/Chest: Effort normal. Neurological: She is alert and oriented to person, place, and time. No cranial nerve deficit. Gait (appears at baseline, slightly unsteady) abnormal. GCS eye subscore is 4. GCS verbal subscore is 5. GCS motor subscore is 6. Skin: Skin is warm and dry. No rash noted. Results for orders placed in visit on 08/31/11 PROTIME Component Value Range INR, External 1.0 0.9 - 1.2 Protime, External 10.6 10.1 - 12.6 (SECONDS) BASIC METABOLIC PANEL ([facility]) Component Value Range Bun, External 25 (*) 7 - 18 (mg/dL) Calcium, External 8.8 8.5 - 10.1 (mg/dL) Chloride, External 108 (*) 98 - 107 (mEq/L) CO2, External 30 21 - 32 (mEq/L) Creatinine, External 0.6 0.5 - 1.4 (mg/dL) GFR, Calculated, External > 60 Potassium, External 4.6 3.5 - 5.0 (mEq/L) Sodium, External 144 135 - 145 (mEq/L) LIPID PROFILE (INCLUDES CHOLESTEROL, TRIGLYCERIDES, HDL, LDL) Component Value Range Triglycerides, External 69 35 - 150 (mg/dL) Cholesterol, External 140 120 - 200 (mg/dL) HDL, External 57 40 - 60 (mg/dL) LDL, External 69 60 - 100 (mg/dL) ALT Component Value Range ALT, External 20 12 - 78 (U/L) TSH Component Value Range TSH, External 1.69 0.35 - 5.50 (uIU/mL) Assessment: Plan: Randi was seen today for follow-up and medications refill. Diagnoses and associated orders for this visit: HX Cva (cerebral infarction) with possible TIA or recurrence, but also has had somatix sxs related to her anxiety in past. Her current sxs are not acute. - lorazepam (ATIVAN) 1 mg tablet; Take 1 Tab by mouth once for 1 dose. - MR HEAD W/WO CONTRAST Should be on anticoagulation of some sort, will start after MRI. Hypertension - uncontrolled - cont losartan (COZAAR) 100 mg tablet; Take 1 Tab by mouth daily. - add metoprolol (LOPRESSOR) 50 mg tablet; Take 1 Tab by mouth daily. Hyperlipidemia - controlled, cont: - simvastatin (ZOCOR) 40 mg tablet; Take 1 Tab by mouth daily. documented in this encounter Plan of Treatment Upcoming Encounters Date Type Department Care Team (Late st Contact Info) Description 02/03/2024 12:45 EDT Office Visit [facility] Ophthalmology [address] [address] Goldy Guzman MD [address] [place] [phone] documented as of this encounter Procedures Procedure Name Priority Date/Time Associated Diagnosis Comments MR HEAD W/WO CONTRAST 09/27/2011 14:26 EDT CVA (cerebral infarction) documented in this encounter Results * MR HEAD W/WO CONTRAST (09/27/2011 14:26 EDT) Anatomical Region Laterality Modality Other 09/27/2011 14:2 6 EDT 09/27/2011 14:54 EDT Narrative 09/27/2011 14:54 EDT MRI BRAIN WITH AND WITHOUT CONTRAST September 27, 2011 Indication: History of stroke with recurrent symptoms of impaired memory. Vestibular symptoms. Comparison: August 09, 2006. Technique: Axial T2, T2 FLAIR, GRE, DWI and triplanar T1 pre- and postcontrast MR images of the brain were obtained. Findings: The ventricles and sulci are age-appropriate. There is no midline shift. The basilar cisterns are patent. There is a remote lacunar infarct in the basal ganglia and the coronal radiata on the left with some susceptibility noted on the gradient echo sequence consistent with prior hemorrhagic transformation. Additional remote lacunar infarcts are noted in the basal ganglia bilaterally and in the sweetie on the right. Diffusion weighted images demonstrate no acute infarct. There is a very small developmental venous anomaly noted in the left parietal lobe. No additional enhancing lesions are demonstrated. Normal vascular flow-voids are present in the major intracranial arteries and dural venous sinuses. There are no paranasal sinus air-fluid levels identified. The mastoid air cells are clear. Incidental note is made of bilateral intraocular lens replacements. Impression: 1. Remote bilateral basal ganglia and pontine lacunar infarcts. 2. No acute infarct identified. 3. 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 Procedure Note 09/27/2011 MRI BRAIN WITH AND WITHOUT CONTRAST September 27, 2011 Indication: History of stroke with recurrent symptoms of impaired memory. Vestibular symptoms. Comparison: August 09, 2006. Technique: Axial T2, T2 FLAIR, GRE, DWI and triplanar T1 pre- and postcontrast MR images of the brain were obtained. Findings: The ventricles and sulci are age-appropriate. There is no midline shift. The basilar cisterns are patent. There is a remote lacunar infarct in the basal ganglia and the coronal radiata on the left with some susceptibility noted on the gradient echo sequence consistent with prior hemorrhagic transformation. Additional remote lacunar infarcts are noted in the basal ganglia bilaterally and in the sweetie on the right. Diffusion weighted images demonstrate no acute infarct. There is a very small developmental venous anomaly noted in the left parietal lobe. No additional enhancing lesions are demonstrated. Normal vascular flow-voids are present in the major intracranial arteries and dural venous sinuses. There are no paranasal sinus air-fluid levels identified. The mastoid air cells are clear. Incidental note is made of bilateral intraocular lens replacements. Impression: 1. Remote bilateral basal ganglia and pontine lacunar infarcts. 2. No acute infarct identified. 3. 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 Star Vasquez MD IMG MRI ORDERABLES documented in this encounter Visit Diagnoses Diagnosis CVA (cerebral infarction)- Primary Unspecified cerebral artery occlusion with cerebral infarction Hypertension Unspecified essential hypertension Hyperlipidemia Other and unspecified hyperlipidemia documented in this encounter Discontinued Medications Medication Sig Discontinue Reason Start Date End Da te Cyanocobalamin (VITAMIN B-12) 2,000 mcg TbSR Take by mouth daily. Patient Stopped Taking 09/06/2011 simvastatin (ZOCOR) 40 mg tablet Take 1 Tab by mouth daily. Reorder 09/06/2011 09/07/2011 losartan (COZAAR) 100 mg tablet Take 1 Tab by mouth daily. Reorder 06/28/2011 09/07/2011 documented as of this encounter Historical Medications * This list may reflect changes made after this encounter. Medication Sig Dispensed Refills Start Date End Date guaifenesin (MUCINEX) 600 mg SR tablet Take 1,200 mg by mouth as needed. 04/20/2012 added in this encounter Care Teams Bushler Relationship Specialty Start Date End Date Star Vasquez MD [address] [place] [address] PCP - General 12/02/08 09/03/12 documented as of this encounter
--- OUTSIDE RECORDS SUMMARY | 2024-01-12 02:07 | XMS_ITS | Encounter Summary ---
Author Organization [facility] Address [address] [place] [address] Care Team Providers Care Bursar Name Role Phone Star Vasquez MD Primary Care Provider [phone] Reason for Visit * Reason Onset Date Comments Medications Refill 09/06/2011 Encounter Details Date Type Department Care Team (Late st Contact Info) Description 09/06/[address] [place] [address] [phone] Leeanne Clements RN Medications Refill Social History Tobacco Use Types [...] tabletIndications:Hyperten wilder Take 1 Tab by mouth 2 times daily. 60 Tab 4 09/09/2011 12/27/2011 simvastatin (ZOCOR) 40 mg tablet Take 1 Tab by mouth daily. 90 Tab 1 09/06/2011 09/07/2011 documented in this encounter Miscellaneous Notes * Telephone Encounter - Star Vasquez MD - 09/09/2011 1210 EDT resent with BID dose * Telephone Encounter - Leeanne Clements - 09/09/2011 1011 EDT Pt notified that you wanted her to start metoprolol bid--you sent rx with inst. for once daily ??? documented in this encounter Plan of Treatment Upcoming Encounters Date Type Department Care Team (Late st Contact Info) Description 02/03/2024 12:45 EDT Office Visit [facility] Ophthalmology [facility] [address] [place] [address] Goldy Guzman MD [address] [place] [phone] documented as of this encounter Visit Diagnoses Diagnosis Hypertension- Primary Unspecified essential hypertension documented in this encounter Discontinued Medications Medication Sig Discontinue Reason Start Date End Da te simvastatin (ZOCOR) 40 mg tablet Take 1 Tab by mouth daily. Reorder 09/27/2010 09/06/2011 metoprolol (LOPRESSOR) 50 mg tabletIndications:Hyperte nsion Take 1 Tab by mouth daily. Reorder 09/07/2011 09/09/2011 documented as of this encounter Care Teams Bursar Relationship Specialty Start Date End Date Star Vasquez MD [address] [place] [phone] PCP - General 12/02/08 09/03/12 documented as of this encounter
--- OUTSIDE RECORDS SUMMARY | 2024-01-12 02:07 | XMS_ITS | Encounter Summary ---
Author Organization [facility] Address [address] [place] [address] Care Team Providers Care Motor Equipment Lieutenant Name Role Phone Star Vasquez MD Primary Care Provider [phone] Encounter Details Date Type Department Care Team (Latest Contact Info) Description 09/27/2011 13:41 EDT - 09/27/2011 23:59 EDT Hospital Encounter [facility] [address] [place] [address] Star Vasquez MD [address] [place] [phone] Discharge Disposition: Home or Self Care Social [...] on file documented as of this encounter Medications at Time of Discharge Medication Sig Dispensed Refills Start Date End Date VITAMIN B COMPLEX (B COMPLEX 50 ORAL) Take by mouth daily. Calcium-Cholecalciferol , D3, (CALCIUM WITH VITAMIN D) 600-400 mg-unit Tab Take 1 Tab by mouth daily. 06/09/2012 dipyridamole-aspirin (AGGRENOX) 200-25 mg per capsuleIndications:CVA (cerebral infarction) Take 1 Cap by mouth 2 times daily. 180 Cap 1 05/09/2011 02/21/2012 fluticasone (FLONASE) 50 mcg/Actuation nasal sprayIndications:Nasal congestion by Nasal route. 2 sprays once daily each nostril for 1 week, then 1 spray daily each side. 1 Bottle 5 08/31/2010 12/27/2011 guaifenesin (MUCINEX) 600 mg SR tablet Take 1,200 mg by mouth as needed. 04/20/2012 ibuprofen (MOTRIN) 600 mg tablet Take 1 Tab by mouth every 8 hours as needed for Pain. 60 Tab 5 07/02/2010 12/16/2011 lansoprazole (PREVACID) 30 mg capsuleIndications:GERD (gastroesophageal reflux disease) Take 1 Cap by mouth daily. 30 Cap 11 07/01/2011 11/14/2014 lorazepam (ATIVAN) 1 mg tabletIndications:CVA (cerebral infarction) Take 1 Tab by mouth once for 1 dose. 1 Tab 0 09/06/2011 10/18/2011 losartan (COZAAR) 100 mg tabletIndications:Hyper tension Take 1 Tab by mouth daily. 90 Tab 1 09/07/2011 05/06/2012 metoprolol (LOPRESSOR) 50 mg tabletIndications:Hyper tension Take 1 Tab by mouth 2 times daily. 60 Tab 4 09/09/2011 12/27/2011 simvastatin (ZOCOR) 40 mg tabletIndications:Hyper lipidemia Take 1 Tab by mouth daily. 90 Tab 3 09/07/2011 05/06/2012 tramadol (ULTRAM) 50 mg tablet Take 1 Tab by mouth every 6 hours as needed for Pain. 30 Tab 1 09/20/2010 12/16/2011 trazodone (DESYREL) 50 mg tabletIndications:Sleep disorder Take 3-4 Tabs by mouth at bedtime. Start at 1 tablet (50mg) at bedtime for first 3 nights, then increase to 2 tabs (100mg) 120 Tab 4 04/01/2011 12/16/2011 documented as of this encounter Discharge Disposition Disposition Code Departure Means Destination Home or Self [facility] documented in this encounter Plan of Treatment Upcoming Encounters Date Type Department Care Team (Late st Contact Info) Description 02/03/2024 12:45 EDT Office Visit [facility] Ophthalmology [facility] [address] [place] [address] Goldy Guzman MD [address] [place] [phone] Pending Results Name Type Priority Associated Diagnoses Date /Time CREATININE, ISTAT Point of Care Testing Routine 09/27/2011 13:27 EDT documented as of this encounter Procedures Procedure Name Priority Date/Time Associated Diagnosis Comments CREATININE, ISTAT Routine 09/27/2011 13: 27 EDT documented in this encounter Results * CREATININE, ISTAT (09/27/2011 13:27 EDT) Creatinine, i-STAT 0.7 0.7 - 1.5 mg/dl JAIDA SMALL human resources administrator ID [id number] [facility] Comment:Test performed by [facility]. 09/27/2011 13:2 7 EDT 09/27/2011 15:06 EDT Provider Unknown MD POINT OF CARE TEST O RDERABLES Performing Organization Address City/State/[facility] Co de Phone Number [facility] [address] [place] [phone] documented in this encounter Visit Diagnoses Not on filedocumented in this encounter Care Teams Motor Equipment Lieutenant Relationship Specialty Start Date End Date Star Vasquez MD [address] [place] [address] PCP - General 12/02/08 09/03/12 documented as of this encounter
--- OUTSIDE RECORDS SUMMARY | 2024-01-12 02:07 | XMS_ITS | Encounter Summary ---
Author Organization [facility] Address [address] [place] [address] Care Team Providers Care Unix Systems Administrator Name Role Phone Star Vasquez MD Primary Care Provider [phone] Reason for Referral * Consult (Routine) - Closed Specialty Diagnoses / Procedures Referred By Layne romeo Referred To Contact Diagnoses Spells CVA (cerebral infarction) Star Vasquez MD [address] [place] [address] Referral ID Status Reason Start Date Expiration Date V isits Requested Visits Authorized [id number] Closed Specialty Services Required 12/27/2011 1 1 Question Answer Reason for Request: has had 3 spells in 6 months. ? TIA (presumed); EEG needed Comments CT 2006 & 2008, and MRI 08/2011 all show old lacunar infarcts - on statin, ARB, aggrenox. Carotids normal recently. Reason for Visit * Reason Comments Other Had a spell of shut ting down 5days ago. Encounter Details Date Type Department Care Team (Late st Contact Info) Description 12/27/2011 15:15 EDT Office Visit [facility] Medicine - [address] [place], [place] [address] Star Vasquez MD [address] [place] [address] Spells; CVA (cerebral infarction) Social History Tobacco Use Types Packs/Day Years [...] Sign Reading Time Taken Comments Blood Pressure 128/60 12/27/2011 1541 EDT Pulse 68 12/27/2011 1541 EDT Temperature - - Respiratory Rate - - Oxygen Saturation - - Inhaled Oxygen Concentration - - Weight 68.5 kg (151 lb) 12/27/2011 1541 EDT Height - - Body Mass Index 27.62 04/25/2011 1102 EDT documented in this encounter Patient Instructions * Patient Instructions* Star Vasquez MD - 12/27/2011 16:17 EDT I think your blood pressure is okay as long as it is in these ranges: Systolic (top number): 110-140 Diastolic (bottom number): 40-80 If this happens again, please have somebody (or 911 ambulance) drive you to the Emergency right away. CT scans in 2006 and 2008, and MRI in 08/2011 all show old strokes called lacunar infarcts documented in this encounter Progress Notes * Star Vasquez MD - 12/27/2011 1610 EDT SUBJECTIVE Chief Complaint Patient presents with ??? Other Had a spell of shutting down 5days ago. HPI 1) SPELLS - few months ago she had a few spells, had some evaluation done. Had 1 blood pressure that was a bit high [looking at flowsheets, had 1 measure of SBP 142]. Recently 132/54 at home last Friday when she had another spell, but it was different than previous ones. That night she started to shut down gradually. Was slowed, hard to get words out. Lasted a matter of 5 minutes before it started to improve, then was fully back to her baseline before bedtime - perhaps 4 hours approx, resolved spontaneously. There was a question if BP was too low. Has had 3 spells in 6 months, this one was different. This one felt more like prior stroke. 2) Problem List and Social History Reviewed ROS - See HPI OBJECTIVE Blood pressure 128/60, pulse 68, weight 68.493 kg (151 lb). Estimated Body mass index is 27.62 kg/(m^2) as calculated from the following: Height as of 11: 5' 2(1.575 m). Weight as of this encounter: 151 lb(68.493 kg). Awake, alert, NAD. Heart regular, respirations unlabored. Skin warm, dry, no jaundice. GCS 15, speech normal, gait normal. no facial asymmtery, speech normal strength normal Reviewed CT and MRI reports Reviwed carotids US (normal) ASSESSMENT & PLAN Randi was seen today for other. Diagnoses and associated orders for this visit: Spells - ? TIA - Ambulatory Consult Neurology hx of Cva (cerebral infarction) by CT and MRI, most recent imaging 08/2011 on ACEI, statin, aggrenox, and good blood pressure control - Ambulatory Consult Neurology Patient Instructions I think your blood pressure is okay as long as it is in these ranges: Systolic (top number): 110-140 Diastolic (bottom number): 40-80 If this happens again, please have somebody (or 911 ambulance) drive you to the Emergency right away. CT scans in 2006 and 2008, and MRI in 08/2011 all show old strokes called lacunar infarcts documented in this encounter Plan of Treatment Upcoming Encounters Date Type Department Care Team (Late st Contact Info) Description 02/03/2024 12:45 EDT Office Visit [facility] Ophthalmology [facility] [address] [place], [place] [phone] Goldy Guzman MD [address] [place] [phone] Scheduled Referrals Name Type Priority Associated Diagnoses Orde r Schedule AMB CONSULT NEUROLOGY Outpatient Referral Routine Spells CVA (cerebral infarction) Ordered: 12/27/2011 documented as of this encounter Visit Diagnoses Diagnosis Spells Other convulsions CVA (cerebral infarction) Unspecified cerebral artery occlusion with cerebral infarction documented in this encounter Discontinued Medications Medication Sig Discontinue Reason Start Date End Da te metoprolol (LOPRESSOR) 50 mg tabletIndications:Hype rtension Take 1 Tab by mouth 2 times daily. Patient Stopped Taking 09/09/2011 12/27/2011 fluticasone (FLONASE) 50 mcg/Actuation nasal sprayIndications:Nasal congestion by Nasal route. 2 sprays once daily each nostril for 1 week, then 1 spray daily each side. Patient Stopped Taking 08/31/2010 12/27/2011 documented as of this encounter Care Teams Unix Systems Administrator Relationship Specialty Start Date End Date Star Vasquez MD [address] [place] [address] PCP - General 12/02/08 09/03/12 documented as of this encounter
--- OUTSIDE RECORDS SUMMARY | 2024-01-12 02:07 | XMS_ITS | Encounter Summary ---
Author Organization [facility] Address [address] [place] [address] Care Team Providers Care Pneumatic Jacketer Name Role Phone Star Vasquez MD Primary Care Provider [phone] Reason for Referral * Consult (Routine) - Closed Specialty Diagnoses / Procedures Referred By Layne romeo Referred To Contact Diagnoses Abnormality of gait Plantar wart Star Vasquez MD [address] [place] [address] Referral ID Status Reason Start Date Expiration Date V isits Requested Visits Authorized [id number] Closed Specialty Services Required 07/01/2011 1 1 Question Answer Reason for Request: referral at request of patient Reason for Visit * Reason Onset Date Comments Referral Request 07/01/2011 Medications Refill 07/01/2011 Encounter Details Date Type Department Care Team (Late st Contact Info) Description 07/01/2011 Telephone [facility] Medicine [address] [address] Star Vasquez MD [address] [place] [address] Referral Request; Medications Refill Social History Tobacco Use Types [...] Dispensed Refills Start Date End Da te lansoprazole (PREVACID) 30 mg capsuleIndications:GERD (gastroesophageal reflux disease) Take 1 Cap by mouth daily. 30 Cap 11 07/01/2011 11/14/2014 documented in this encounter Miscellaneous Notes * Telephone Encounter - Leeanne Clements - 07/01/2011 1316 EST Pt notified * Telephone Encounter - Star Vasquez MD - 07/01/2011 1252 EST ordered med and referral * Telephone Encounter - Julianne Proctor - 07/01/2011 0838 EST Needs referral for her arthritic feet and toes to a Study Hall Supervisor. She also needs a refill on Predacid for her GERD. Last time she had this refilled was in 2004 Predacid 30 mg. Take one capsule by mouth every day. She only took it as needed. She is not sure if this can be refilled unless she comes in for an appointment. Please let patient know. documented in this encounter Plan of Treatment Upcoming Encounters Date Type Department Care Team (Late st Contact Info) Description 02/03/2024 12:45 EDT Office Visit [facility] Ophthalmology [facility] [address] [place] [address] Goldy Guzman MD [address] [place] [address] Scheduled Referrals Name Type Priority Associated Diagnoses Orde r Schedule AMB CONSULT PODIATRY Outpatient Referral Routine Abnormality of gait Plantar wart Ordered: 07/01/2011 documented as of this encounter Visit Diagnoses Diagnosis GERD (gastroesophageal reflux disease) Esophageal reflux Abnormality of gait Plantar wart documented in this encounter Care Teams Pneumatic Jacketer Relationship Specialty Start Date End Date Star Vasquez MD [address] [place] [address] PCP - General 12/02/08 09/03/12 documented as of this encounter
--- OUTSIDE RECORDS SUMMARY | 2024-01-12 02:07 | XMS_ITS | Encounter Summary ---
Author Organization [facility] Address [address] [place] [address] Care Team Providers Care Consulting Analyst Name Role Phone Star Vasquez MD Primary Care Provider [phone] Reason for Visit * Reason Comments Blurred Vision distance not as franklin p over last 6 mos Encounter Details Date Type Department Care Team (Late st Contact Info) Description 04/25/2011 15:00 EDT Office Visit [facility] [address] [place] [address] Santos Mai MD [address] [place] [address] Social History Tobacco Use Types Packs/Day Years Used Date Smoking Tobacco: Former Cigarettes Alcohol Use Standard Drinks/Week Comments Yes 0 (1 standard drink = 0.6 oz pur e alcohol) rare Sex and Gender Information Value Date Recorded Sex Assigned at Not on file Gender Identity Female 10/16/2020 9:54 EDT Sexual Orientation Not on file documented as of this encounter Progress Notes * Santos Mai MD - 04/25/2011 1621 EDT Chief Complaint Patient presents with ??? Blurred Vision distance not as sharp over last 6 mos ROS Right Eye: Blurred Vision Left Eye: Blurred Vision Visual Fluctuations: Floaters (? has seen something occ temp right eye) Visual Aid: Glasses Current Rx Age 4 years Constitutional: NL ENT/Mouth NL Cardiovascular: High Blood Pressure;High Cholesterol Respiratory: NL Gastrointestinal: NL Genitourinary: NL Musculoskeletal: Joint Pain Integumentary: NL Neurologic: (Hx CVA 07/2006) Psychiatric: (anxiety) Endocrine: NL Hematologic: Immunologic: Retail Specialist: Menopause Exposures: Other: Attestation: Past Medical History Diagnosis Date ??? Allergy ??? Anemia ??? Cataract ??? Chronic kidney disease ??? Unspecified cerebral artery occlusion with cerebral infarction ??? Environmental allergies Past Surgical History Procedure Date ??? Carpal tunnel release 1997 right ??? Lithotripsy 1997 ??? Tonsillectomy and adenoidectomy as child ??? Cataract removal with implant 12/19/2005 right ??? Tonsillectomy ??? Cataract removal ??? Intraocular lens prosthesis insertion 11/2005 right ??? Intraocular lens prosthesis insertion 12/2005 left History Social History ??? Marital Status: Spouse Name: N/A Number of Children: N/A ??? Years of Education: N/A Occupational History ??? Retired Social History Main Topics ??? Smoking status: Former Smoker -- 30 years ??? Smokeless tobacco: None ??? Alcohol Use: Yes rare ??? Drug Use: ??? Sexually Active: Yes -- Male partner(s) Control/ Protection: Post-menopausal Other Topics Concern ??? None Social History Narrative ??? None HPI Location: Pain: 0 - No pain Quality: Severity: Duration: Timing: Lasts: Context: Modifying factors: Associated Signs & Symptoms: Visual Fluctuations: Floaters (? has seen something occ temp right eye) Attestation: No Known Allergies Current Outpatient Prescriptions Medication Sig Dispense Refill ??? trazodone (DESYREL) 50 mg tablet Take 3-4 Tabs by mouth at bedtime. Start at 1 tablet (50mg) atbedtime for first 3 nights, then increase to 2 tabs (100mg) 120 Tab 4 ??? dipyridamole-aspirin (AGGRENOX) 200-25 mg per capsule [...] 2,000 mcg TbSR Take by mouth daily. EXAMINATION Mental Status Assessment: Oriented to person, place and time Eye exam is documented in the Ophthalmology Navigator Module. DIAGNOSIS & PLAN Encounter Diagnoses Name Primary? Drusen (degenerative) of retina ??? Pseudophakia of both eyes ??? Blepharitis, unspecified Warm compresses I am scribing for Santos Mai MD While he is personally performing the service. Rubén/COA (Scribe) Patient Education Topic: macular drusen Method: Verbal Taught to: Patient Barriers: None Outcomes: independent and verbalized understanding Signature:Santos Mai MD . 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 Lens replaced by other means Blepharitis, unspecified documented in this encounter Eye Exam Visual Acuity (Snellen - Linear) Right eye Left eye Dist cc 20/25 +3 20/25 +3 Near cc J1+ J1+ Correction: Glasses Tonometry (Applanation, 16:13) Right eye Left eye Pressure 12 12 Pupils Dark APD Right eye 2 None Left eye 2 None Visual Sierra Right eye Left eye Full Full Dilation Both eyes: 1.0% Mydriacyl, 2 .5% Kumar Synephrine @ 16:14 External Exam Right eye Left eye External Normal Normal Slit Lamp Exam Right eye Left eye Lids/Lashes 1+ Dermatochalasis - upper lid, 1+ Blepharitis 1+ Dermatochalasis - upper lid, 1+ Blepharitis Conjunctiva/Sclera White and quiet White and haris et Cornea Clear Clear Anterior Chamber Deep and quiet Deep and quiet Iris Round and reactive Round and judi ctive Lens Posterior chamber in traocular lens Posterior chamber intraocular lens Vitreous Normal Normal Fundus Exam Right eye Left eye Disc Normal Normal C/D Ratio 0.1 0.2 Macula Drusen Drusen paramacul Vessels Normal Normal Periphery Normal Normal Wearing Rx Sphere Cylinder Brook Add Right eye +0.25 +0.75 038 +2.75 Left eye -0.25 +1.00 170 +2.75 Age: 4yrs Type: Bifocal Manifest Refraction (Auto) Sphere Cylinder Brook Dist VA Right eye +0.25 +0.75 020 20/25+ Left eye -0.25 +1.00 160 20/25+ AR after dilation Care Teams Consulting Analyst Relationship Specialty Start Date End Date Star Vasquez MD [address] [place] [address] PCP - General 12/02/08 09/03/12 documented as of this encounter
--- OUTSIDE RECORDS SUMMARY | 2024-01-12 02:07 | XMS_ITS | Encounter Summary ---
Author Organization [facility] Address [address] [place] [address] Care Team Providers Care Corridor Redevelopment Manager Name Role Phone Star Vasquez MD Primary Care Provider [phone] Reason for Visit * Reason Onset Date Comments Orders (Non Pre-visit) 03/11/2011 Encounter Details Date Type Department Care Team (Late st Contact Info) Description 03/11/[address] [place] [address] Star Vasquez MD [address] [place] [phone] Orders (Non Pre-visit) Social History Tobacco Use Types Packs/Day Years [...] encounter Miscellaneous Notes * Telephone Encounter - Sue Delaney - 03/12/2011 1013 EDT Randi has an MRI at [facility] scheduled for Saturday 03/24 at 7:00 pm. I notified her of this and now shewants to call [facility] back. I gave her the number to call and cancel this MRI if she decides to have it done at [facility]. * Telephone Encounter - Star Vasquez MD - 03/11/2011 1405 EDT reordered * Telephone Encounter - Sue Delaney - 03/11/2011 1142 EDT Can you please put the MRI request in as internal. Randi was originally scheduled at [facility] and seems to have changed her mind. I spoke with Ga at [facility] in [place] and it does need to be reorderedso that they can schedule it. documented in this encounter Plan of Treatment Upcoming Encounters Date Type Department Care Team (Late st Contact Info) Description 02/03/2024 12:45 EDT Office Visit [facility] [address] [place] [address] Goldy Guzman MD [address] [place] [phone] documented as of this encounter Visit Diagnoses Diagnosis Derangement of right knee- Primary Unspecified internal derangement of knee documented in this encounter Care Teams Corridor Redevelopment Manager Relationship Specialty Start Date End Date Star Vasquez MD [address] [place] [address] PCP - General 12/02/08 09/03/12 documented as of this encounter
--- OUTSIDE RECORDS SUMMARY | 2024-01-12 02:07 | XMS_ITS | Encounter Summary ---
Author Organization [facility] Address [address] [place] [address] Care Team Providers Care Accounting Advisory Services Manager Name Role Phone Star Vasquez MD Primary Care Provider [phone] Reason for Visit * Reason Comments Pain right upper arm pain for sev. months--no initial injury but became worse after painting Medications Refill simvastatin Encounter Details Date Type Department Care Team (Late st Contact Info) Description 07/15/2011 14:30 EST Office Visit [address] [address] Star Vasquez MD [address] [place] [address] Biceps muscle strain (Primary Dx) Social History Tobacco Use Types [...] Sign Reading Time Taken Comments Blood Pressure 132/64 07/15/2011 1431 EST Pulse 84 07/15/2011 1431 EST Temperature - - Respiratory Rate 18 07/15/2011 1431 EST Oxygen Saturation - - Inhaled Oxygen Concentration - - Weight 69.4 kg (153 lb) 07/15/2011 1431 EST Height - - Body Mass Index 27.98 04/25/2011 1102 EDT documented in this encounter Patient Instructions * Patient Instructions* Star Vasquez MD - 07/15/2011 14:47 EST Biceps muscle strain -Heat 20 minutes 2 or 3 times per day. -May take acetaminophen (Tylenol generic) extra-strength 500mg 2 tabs every 6 hours as needed - or regular strength 325mg 3 tabs every 6 hours. -Rest If not getting better in 3 weeks, call for a referral to physical therapy. documented in this encounter Progress Notes * Star Vasquez MD - 07/15/2011 1442 EST Subjective: Patient ID: Randi Oswald is an 70 y.o. female. Chief Complaint Patient presents with ??? Pain right upper arm pain for sev. months--no initial injury but became worse after painting ??? Medications Refill simvastatin HPI Comments: RIGHT ARM - ever since she painted her house, she has had arm pain. Pain ongoing x 10 days. No better this past 2 days than last week. Pain is lower-mid section of biceps muscle - pain, tightness. Notingling in her hand. No weakness. Has not tried any ice or heat. Has not tried any OC analgesics. Pain Medications Refill Patient Active Problem List Diagnoses [...] rare ROS - See HPI Objective: BP 132/64 Pulse 84 Resp 18 Wt 69.4 kg (153 lb) Physical Exam Constitutional: She is oriented to person, place, and time. She appears well- developed and well-nourished. Non-toxic appearance. Eyes: Conjunctivae are normal. No scleral icterus. Cardiovascular: Regular rhythm. Pulmonary/Chest: Effort normal. Musculoskeletal: Right upper arm: She exhibits tenderness (biceps body and distal insertion). She exhibits no bony tenderness, no swelling and no deformity. biceps intact, normal ROM, strength intact limited by pain Neurological: She is alert and oriented to person, place, and time. Gait normal. GCS eye subscore is 4. GCS verbal subscore is 5. GCS motor subscore is 6. Skin: Skin is warm and dry. No rash noted. Assessment: Plan: Randi was seen today for pain and medications refill. Diagnoses and associated orders for this visit: Biceps muscle strain -Heat 20 minutes 2 or 3 times per day. -May take acetaminophen (Tylenol generic) extra-strength 500mg 2 tabs every 6 hours as needed - or regular strength 325mg 3 tabs every 6 hours. -Rest If not getting better in 3 weeks, call for a referral to physical therapy. documented in this encounter Plan of Treatment Upcoming Encounters Date Type Department Care Team (Late st Contact Info) Description 02/03/2024 12:45 EDT Office Visit [facility] [address] [place] [address] Goldy Guzman MD [address] [place] [phone] documented as of this encounter Visit Diagnoses Diagnosis Biceps muscle strain- Primary Sprain and strain of other specified sites of shoulder and upper arm documented in this encounter Care Teams Accounting Advisory Services Manager Relationship Specialty Start Date End Date Star Vasquez MD [address] [place] [phone] PCP - General 12/02/08 09/03/12 documented as of this encounter
--- OUTSIDE RECORDS SUMMARY | 2024-01-12 02:07 | XMS_ITS | Encounter Summary ---
Author Organization [facility] Address [address] [place] [address] Care Team Providers Care Sap Fico Architect Name Role Phone Star Vasquez MD Primary Care Provider [phone] Reason for Visit * Reason Comments Other crusting both sides of nose feels like a film rt and left side stays through the winter-very annoying-no other symptoms sudden onset. Encounter Details Date Type Department Care Team (Late st Contact Info) Description 04/25/2011 11:10 EDT Office Visit [facility] ENT [address] [id number] Unknown, ProviderMD Horace Pedersen MD [address] [place] [address] [address] [place] [phone] Deviated nasal septum; Nasal vestibulitis Social History Tobacco Use Types Packs/Day Years [...] Pressure - - Pulse - - Temperature 35.9 ??C (96.6 ??F) 04/25/2011 1102 EDT Respiratory Rate - - Oxygen Saturation - - Inhaled Oxygen Concentration - - Weight 71.7 kg (158 lb) 04/25/2011 1102 EDT Height 157.5 cm (5' 2) 04/25/2011 1102 EDT Body Mass Index 28.9 04/25/2011 1102 EDT documented in this encounter Progress Notes * Horace Pedersen MD - 04/25/2011 1143 EDT This is a consult from Luis Fernando Vasquez for evaluation of nasal crusting. History of Present Illness: This is a 70-year-old female with a 2-year history of recurrent crusting of the anterior nose described as mild and annoying. Usually occurs during the winter. No associated respiratory tract infection. Oftentimes it forms a thin film on the inside of the nose. It has been treated with Vaseline but without much effect. No associated pain, fever or purulence. Past medical history is significant for hypertension, hyperlipidemia, anxiety, osteopenia, neck pain, CVA, nephrolithiasis, reflux, allergies, anemia, back pain, colon polyp, trigger finger, gait abnormality, shoulder pain, carpal tunnel release, plantar wart, sleep disorder, torn meniscus, herpes labialis, cataracts, kidney disease, cerebral infarction. Previous surgeries include carpal tunnel, lithotripsy, tonsillectomy and adenoidectomy, cataract removal. Family history is significant for cancer and coronary artery disease. Social History: Patient a former smoker for 30 years. No known drug allergies. Current medications include vitamin D, B12, B complex, Aggrenox, Flonase, Motrin, Cozaar, Zocor, Ultram, Desyrel. Review of systems is significant for blurred vision, hearing loss, nasal congestion, cough, reflux,dizziness and anxiety. Otherwise, negative for complete review of all systems. Objective: General: Well-developed, well-nourished, cooperative adult female in no acute distress. Normal voice. Vital signs: Height 62 inches. Weight 158, temperature 96.6. The face is normal without lesions. No tenderness. Salivary glands are normal. Facial strength is symmetric. Eye exam is normal. Ears: External ears are normal; canals are clear; tympanic membranes are normal. Nose: Nasal dorsum is midline; the airway is patent. There is a right anterior nasoseptal deviation. Oral cavity isclear. Posterior pharynx is clear. Neck: No pathologic lymphadenopathy. Trachea is midline. Thyroidis normal. Chest is clear to auscultation. Heart: Regular rate and rhythm. Procedure: Fiberoptic nasal endoscopy was performed with topical anesthesia. No evidence of nasal polyps or purulence. Both middle meatus are clear. There is a right nasoseptal deformity. The nasopharynx is clear. The base of tongue, epiglottis, vallecula, piriform sinuses, false vocal cords and true vocal cords are within normal limits. Impression: Nasoseptal deviation, possible nasal vestibulitis occurring in the winter. The patient is currently asymptomatic. Plan: Trial of Bactroban ointment during the winter for presumed nasal vestibulitis caused by a staphylococcus organism. Follow up with ENT p.r.nCierra WOLF/ Luis Fernando Vasquez documented in this encounter Plan of Treatment Upcoming Encounters Date Type Department Care Team (Late st Contact Info) Description 02/03/2024 12:45 EDT Office Visit [address] [address] Goldy Guzman MD [address] [place] [address] documented as of this encounter Visit Diagnoses Diagnosis Deviated nasal septum Nasal vestibulitis Other diseases of nasal cavity and sinuses documented in this encounter Discontinued Medications Medication Sig Discontinue Reason Start Date End Da te Cod Liver Oil Cap Take by mouth. 04/25/2011 loratadine (CLARITIN) 10 mg tablet Take 1 Tab by mouth daily. 09/27/2010 04/25/2011 documented as of this encounter Care Teams Sap Fico Architect Relationship Specialty Start Date End Date Star Vasquez MD [address] [place] [address] PCP - General 12/02/08 09/03/12 documented as of this encounter
--- OUTSIDE RECORDS SUMMARY | 2024-01-12 02:07 | XMS_ITS | Encounter Summary ---
Author Organization [facility] Address [address] [place] [address] Care Team Providers Care Appointment Coordinator Name Role Phone Star Vasquez MD Primary Care Provider [phone] Reason for Visit * Reason Comments Otalgia nose is sore also, l eft ear hurts. has been bothering on and off for a month. Encounter Details Date Type Department Care Team (Late st Contact Info) Description 08/31/2010 14:40 EST Office Visit [address] [address] Junior Azevedo PA-C Nasal congestion; Otalgia Discharge Disposition: Auto Discharge Social History Tobacco Use Types Packs/Day Years [...] Sign Reading Time Taken Comments Blood Pressure 160/72 08/31/2010 1451 EST Pulse 96 08/31/2010 1451 EST Temperature 36.9 ??C (98.5 ??F) 08/31/2010 1451 EST Respiratory Rate 24 08/31/2010 1451 EST Oxygen Saturation - - Inhaled Oxygen Concentration - - Weight 70.5 kg (155 lb 8 oz) 08/31/2010 1451 EST Height 156.2 cm (5' 1.5) 08/31/2010 1451 EST Body Mass Index 28.91 08/31/2010 1451 EST documented in this encounter Ordered Prescriptions Prescription Sig Dispensed Refills Start Date End Da te fluticasone (FLONASE) 50 mcg/Actuation nasal sprayIndications:Nasal congestion by Nasal route. 2 sprays once daily each nostril for 1 week, then 1 spray daily each side. 1 Bottle 5 08/31/2010 12/27/2011 documented in this encounter Discharge Disposition Disposition Code Departure Means Destination Auto Discharge documented in this encounter Progress Notes * Junior Azevedo PA - 08/31/2010 1511 EST Subjective: Patient ID: Randi Oswald is an 69 y.o. female. Chief Complaint Patient presents with ??? Otalgia nose is sore also, left ear hurts. has been bothering on and off for a month. HPI Comments: # Noted off & on left ear discomfort. Treated with Debrox which helped. Here to have ear checked. Uses ear plugs at night. # Notes nasal congestion this winter. Heats with wood. Uses saline rinses without relief. Otalgia There is pain in the left ear. This is a new problem. The current episode started 1 to 4 weeks ago.The problem has been rapidly improving. Nasal congestion.. Treatments tried: Used debrox. The treatment provided significant relief. Patient Active Problem List Diagnoses Code ??? CVA (cerebral infarction) 434.91FD ??? Hypertension 401.9AJ ??? Hyperlipidemia 272.4S ??? Nephrolithiasis 592.0L ??? Chronic anxiety 300.00AW ??? GERD (gastroesophageal reflux disease) 530.81S ??? Environmental allergies V15.09J ??? Anemia 285.9AA ??? Back pain 724.5E [...] 367.9 ??? 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 Allergy ??? Anemia ??? Cataract ??? Chronic kidney disease Current outpatient prescriptions ordered prior to encounter Medication Sig Dispense Refill ??? simvastatin (ZOCOR) 40 mg tablet Take 1 Tab by mouth daily. 30 Tab 5 ??? ibuprofen (MOTRIN) 600 mg tablet Take 1 Tab by mouth every 8 hours as needed for Pain. 60 Tab 5 ??? loratadine (CLARITIN) 10 mg tablet Take 1 Tab by mouth daily. 30 Tab 11 ??? losartan (COZAAR) 100 mg tablet Take 1 Tab by mouth daily. 90 Tab 2 ??? dipyridamole-aspirin (AGGRENOX) 200-25 mg per capsule Take 1 Cap by mouth 2 times daily. 180 Cap 3 ??? Cod Liver Oil Cap Take by mouth. ??? VITAMIN B COMPLEX (B COMPLEX 50 ORAL) Take by mouth daily. ??? Calcium-Cholecalciferol, D3, (CALCIUM WITH VITAMIN D) 600-400 mg-unit Tab Take 1 Tab by mouth daily. ??? Cyanocobalamin (VITAMIN B-12) 2,000 mcg TbSR Take by mouth daily. ??? gabapentin (NEURONTIN) 300 mg capsule Take 600 mg by mouth at bedtime. ??? TRAMADOL HCL (TRAMADOL ORAL) Take by mouth as needed. To be prescribed by Dr. Corral only No Known Allergies Social History Substance Use Topics ??? Smoking status: Former Smoker -- 30 years ??? Smokeless tobacco: Never Used ??? Alcohol Use: Yes rare Review of Systems Constitutional: Negative for fever and chills. HENT: Positive for ear pain and congestion. Respiratory: Negative. - See HPI Objective: BP 160/72 Pulse 96 Temp(Src) 36.9 ??C (98.5 ??F) (Oral) Resp 24 Ht 156.2 cm (61.5) Wt 70.534 kg (155 lb 8 oz) BMI 28.91 kg/m2 Physical Exam Constitutional: She appears well-developed and well-nourished. No distress. HENT: Right Ear: External ear normal. Left Ear: External ear normal. Mouth/Throat: Oropharynx is clear and moist. Mild nasal congestion. TM's prado and normal bilaterally. Eyes: Conjunctivae are normal. Lymphadenopathy: She has no cervical adenopathy. Assessment: # Left otalgia resolved; no abnormality noted. # Nasal congestion. Plan: Randi was seen today for otalgia. Diagnoses and associated orders for this visit: Nasal congestion - fluticasone (FLONASE) 50 mcg/Actuation nasal spray; by Nasal route. 2 sprays once daily each nostril for 1 week, then 1 spray daily each side. Otalgia # Follow-up with recurrence of left ear pain. # Will try nasal steroid for one month to resolve congestion. Follow-up as needed. documented in this encounter Plan of Treatment Upcoming Encounters Date Type Department Care Team (Late st Contact Info) Description 02/03/2024 12:45 EDT Office Visit [facility] Ophthalmology [address] [address] Goldy Guzman MD [address] [place] [phone] documented as of this encounter Visit Diagnoses Diagnosis Nasal congestion Other diseases of nasal cavity and sinuses Otalgia Otalgia, unspecified documented in this encounter Care Teams Appointment Coordinator Relationship Specialty Start Date End Date Star Vasquez MD [address] [place] [address] PCP - General 12/02/08 09/03/12 documented as of this encounter
--- OUTSIDE RECORDS SUMMARY | 2024-01-12 02:07 | XMS_ITS | Encounter Summary ---
Author Organization [facility] Address [address] [place] [address] Care Team Providers Care Printing Pressman Name Role Phone Star Vasquez MD Primary Care Provider [phone] Reason for Visit * Reason Onset Date Comments Medications Refill 12/26/2010 AGGRENOX Encounter Details Date Type Department Care Team (Late st Contact Info) Description 12/26/[address] [address] Star Vasquez MD [address] [place] [address] Medications Refill (AGGRENOX) Social History Tobacco Use [...] Dispensed Refills Start Date End Da te losartan (COZAAR) 100 mg tablet Take 1 Tab by mouth daily. 90 Tab 1 12/27/2010 06/28/2011 dipyridamole-aspirin (AGGRENOX) 200-25 mg per capsuleIndications:CVA (cerebral infarction) Take 1 Cap by mouth 2 times daily. 180 Cap 1 12/26/2010 05/09/2011 documented in this encounter Miscellaneous Notes * Telephone Encounter - Ashlee Paul - 12/27/2010 1127 EDT Pt is all out of medicine (for a couple of wks now); could these be called in today (husb will be coming to [facility] this afternoon) documented in this encounter Plan of Treatment Upcoming Encounters Date Type Department Care Team (Late st Contact Info) Description 02/03/2024 12:45 EDT Office Visit [facility]hthal[facility] [address] [place] [address] Goldy Gzuman MD [address] [place] [address] documented as of this encounter Visit Diagnoses Diagnosis CVA (cerebral infarction) Unspecified cerebral artery occlusion with cerebral infarction documented in this encounter Discontinued Medications Medication Sig Discontinue Reason Start Date End Da te dipyridamole-aspirin (AGGRENOX) 200-25 mg per capsule Take 1 Cap by mouth 2 times daily. Reorder 11/15/2009 12/26/2010 losartan (COZAAR) 100 mg tablet Take 1 Tab by mouth daily. Reorder 12/08/2009 12/27/2010 documented as of this encounter Care Teams Printing Pressman Relationship Specialty Start Date End Date Star Vasquez MD [address] [place] [phone] PCP - General 12/02/08 09/03/12 documented as of this encounter
--- OUTSIDE RECORDS SUMMARY | 2024-01-12 02:07 | XMS_ITS | Encounter Summary ---
Author Organization [facility] Address [address] [place] [address] Care Team Providers Care Back Tender Fourdrinier Name Role Phone Star Vasquez MD Primary Care Provider [phone] Reason for Referral * Consult, Test and Treat (Routine) - Closed Specialty Diagnoses / Procedures Referred By Layne romeo Referred To Contact Diagnoses Chronic low back pain Star Vasquez MD [address] [place] [address] Referral ID Status Reason Start Date Expiration Date V isits Requested Visits Authorized [id number] Closed Specialty Services Required 04/20/2012 1 1 Question Answer Reason for Request: low back musclular strain, has been stable for a while now has a flare Comments aquatherapy approved Reason for Visit * Reason Comments Back Pain lower back pain for yrs--worse since pulling a table towards her while sitting 3 mos ago -- would like an x-ray Encounter Details Date Type Department Care Team (Late st Contact Info) Description 04/20/2012 9:45 EDT Office Visit [facility] Medicine [address] [place] [address] Star Vasquez MD [address] [place] [address] Chronic low back pain (Primary Dx); Need for influenza vaccination Social History Tobacco Use Types Packs/Day Years [...] Sign Reading Time Taken Comments Blood Pressure 140/64 04/20/2012 1008 EDT Pulse 76 04/20/2012 1008 EDT Temperature - - Respiratory Rate 18 04/20/2012 1008 EDT Oxygen Saturation - - Inhaled Oxygen Concentration - - Weight 69.4 kg (153 lb) 04/20/2012 1008 EDT Height 157.5 cm (5' 2) 04/20/2012 1008 EDT Body Mass Index 27.98 04/20/2012 1008 EDT documented in this encounter Patient Instructions * Patient Instructions* Star Vasquez MD - 04/20/2012 10:22 EDT Images from the original note were not included. [facility] Patient Instructions Back Pain: After Your Visit Your Care Instructions Back pain has many possible causes. It is often related to problems with muscles and ligaments of the back. It may also be related to problems with the nerves, discs, or bones of the back. Moving, lifting, standing, sitting, or sleeping in an awkward way can strain the back. Sometimes you don't notice the injury until later. Arthritis is another common cause of back pain. Although it may hurt a lot, back pain usually improves on its own within several weeks. Most peoplerecover in 12 weeks or less. Using good home treatment and being careful not to stress your back can help you feel better sooner. Follow-up care is a cesar part of your treatment and safety. Be sure to make and go to all appointments, and call your doctor if you are having problems. It???s also a good idea to know your test results and keep a list of the medicines you take. How can you care for yourself at home? ?? Sit or lie in positions that are most comfortable and reduce your pain. Try one of these positions when you lie down: ?? Lie on your back with your knees bent and supported by large pillows. ?? Lie on the floor with your legs on the seat of a sofa or chair. ?? Lie on your side with your knees and hips bent and a pillow between your legs. ?? Lie on your stomach if it does not make pain worse. ?? Do not sit up in bed, and avoid soft couches and twisted positions. Bed rest can help relieve pain at first, but it delays healing. Avoid bed rest after the first day of back pain. ?? Change positions every 30 minutes. If you must sit for long periods of time, take breaks from sitting. Get up and walk around, or lie in a comfortable position. ?? Try using a heating pad on a low or medium setting for 15 to 20 minutes every 2 or 3 hours. Try a warm shower in place of one session with the heating pad. ?? You can also try an ice pack for 10 to 15 minutes every 2 to 3 hours. Put a thin cloth between the ice pack and your skin. ?? Take pain medicines exactly as directed. ?? If the doctor gave you a prescription medicine for pain, take it as prescribed. ?? If you are not taking a prescription pain medicine, ask your doctor if you can take an [id number] medicine. ?? Take short walks several times a day. You can start with 5 to 10 minutes, 3 or 4 times a day, and work up to longer walks. Walk on level surfaces and avoid hills and stairs until your back is better. ?? Return to work and other activities as soon as you can. Continued rest without activity is usually not good for your back. ?? To prevent future back pain, do exercises to stretch and strengthen your back and stomach. Learnhow to use good posture, safe lifting techniques, and proper body mechanics. When should you call for help? Call your doctor now or seek immediate medical care if: ?? You have new or worsening numbness in your legs. ?? You have new or worsening weakness in your legs. (This could make it hard to stand up.) ?? You lose control of your bladder or bowels. Watch closely for changes in your health, and be sure to contact your doctor if: ?? Your pain gets worse. ?? You are not getting better after 2 weeks. Where can you learn more? Go to www.[employer]net/fahc Enter I594 in the search box to learn more about Back Pain: After Your Visit. ?? [id number] [employer]. Care instructions adapted under license by [facility] This care instruction is for use with your licensed healthcare professional. If you have questions about a medical condition or this instruction, always ask your healthcare professional. [employer] disclaims any warranty or liability for your use of this information. Content Version: 9.2.765322; Last Revised: October 05, 2010 documented in this encounter Progress Notes * Star Vasquez MD - 04/20/2012 1015 EDT Images from the original note were not included. SUBJECTIVE Chief Complaint Patient presents with ??? Back Pain lower back pain for yrs--worse since pulling a table towards her while sitting 3 mos ago -- would like an x-ray HPI 1) LBP - has been intermittent for years, then a few mo ago she tweaked it - was told she has some disc disease. No numbess or paresthesia. No unusual weakness (since stroke). No unusual bladder or bowel problems. Non-radiating. Pain is mostly midline and across both sides, low back. No recent fevers, rashes, illness. Has not done any PT - at least not in recent memory. Problem List and Social History Reviewed ROS - See HPI OBJECTIVE Blood pressure 140/64, pulse 76, resp. rate 18, height 157.5 cm (62), weight 69.4 kg (153 lb). Estimated Body mass index is 27.98 kg/(m^2) as calculated from the following: Height as of this encounter: 5' 2(1.575 m). Weight as of this encounter: 153 lb(69.4 kg). Awake, alert, NAD. Heart regular, respirations unlabored. Skin warm, dry, no jaundice. GCS 15, speech normal, gait normal. Diffuse tenderness across the lower back, no midline deformity. Lower extremity strength is normal. Normal patellar reflexes. ASSESSMENT & PLAN Randi was seen today for back pain. Diagnoses and associated orders for this visit: Chronic low back pain - no red flags - Ambulatory Consult Physical Therapy Need for influenza vaccination - Flu vaccine greater than or equal to 3yo split IM Patient Instructions [facility] Patient Instructions Back Pain: After Your Visit Your Care Instructions Back pain has many possible causes. It is often related to problems with muscles and ligaments of the back. It may also be related to problems with the nerves, discs, or bones of the back. Moving, lifting, standing, sitting, or sleeping in an awkward way can strain the back. Sometimes you don't notice the injury until later. Arthritis is another common cause of back pain. Although it may hurt a lot, back pain usually improves on its own within several weeks. Most peoplerecover in 12 weeks or less. Using good home treatment and being careful not to stress your back can help you feel better sooner. Follow-up care is a cesar part of your treatment and safety. Be sure to make and go to all appointments, and call your doctor if you are having problems. It???s also a good idea to know your test results and keep a list of the medicines you take. How can you care for yourself at home? ?? Sit or lie in positions that are most comfortable and reduce your pain. Try one of these positions when you lie down: ?? Lie on your back with your knees bent and supported by large pillows. ?? Lie on the floor with your legs on the seat of a sofa or chair. documented in this encounter Plan of Treatment Upcoming Encounters Date Type Department Care Team (Late st Contact Info) Description 02/03/2024 12:45 EDT Office Visit [facility] [address] [place] [address] Goldy Guzman MD [address] [place] [phone] Scheduled Referrals Name Type Priority Associated Diagnoses Orde r Schedule AMB CONSULT PHYSICAL THERAPY Outpatient Referral Routine Chronic low back pain Ordered: 04/20/2012 documented as of this encounter Visit Diagnoses Diagnosis Chronic low back pain- Primary Lumbago Need for influenza vaccination Need for prophylactic vaccination and inoculation against influenza documented in this encounter Discontinued Medications Medication Sig Discontinue Reason Start Date End Da te guaifenesin (MUCINEX) 600 mg SR tablet Take 1,200 mg by mouth as needed. Therapy completed 04/20/2012 documented as of this encounter Orders Immunization/Injection Count Last Ordered Date First Ordered Date INFLUENZA VACCINE =>3YO SPLIT IM 1 04/20/20 12 documented in this encounter Care Teams Back Tender Fourdrinier Relationship Specialty Start Date End Date Star Vasquez MD [address] [place] [phone] PCP - General 12/02/08 09/03/12 documented as of this encounter
--- OUTSIDE RECORDS SUMMARY | 2024-01-12 02:07 | XMS_ITS | Encounter Summary ---
Author Organization [facility] Address [address] [place] [address] Care Team Providers Care Quarter Doper Name Role Phone Star Vasquez MD Primary Care Provider [phone] Reason for Visit * Reason Onset Date Comments Medications Refill 05/06/2012 Encounter Details Date Type Department Care Team (Late st Contact Info) Description 05/06/2012 Refill [facility] Medicine [address] [place] [address] Star Vasquez MD [address] [place] [phone] Medications Refill Social History Tobacco Use Types [...] Dispensed Refills Start Date End Da te simvastatin (ZOCOR) 40 mg tablet TAKE ONE TABLET BY MOUTH EVERY DAY 90 Each 3 05/06/2012 losartan (COZAAR) 100 mg tablet TAKE ONE TABLET BY MOUTH EVERY DAY 90 Each 3 05/06/2012 documented in this encounter Miscellaneous Notes * Telephone Encounter - Deanna Kim - 05/06/2012 1512 EST Pt requested that this be ready for her tomorrow before noon. documented in this encounter Plan of Treatment Upcoming Encounters Date Type Department Care Team (Late st Contact Info) Description 02/03/2024 12:45 EDT Office Visit [facility] Ophthalmology [facility] [address] [place] [address] Goldy Guzman MD [address] [place] [address] documented as of this encounter Visit Diagnoses Not on filedocumented in this encounter Discontinued Medications Medication Sig Discontinue Reason Start Date End Da te simvastatin (ZOCOR) 40 mg tabletIndications:Hyperli pidemia Take 1 Tab by mouth daily. Duplicate Therapy 09/07/2011 05/06/2012 losartan (COZAAR) 100 mg tabletIndications:Hyperte nsion Take 1 Tab by mouth daily. Reorder 09/07/2011 05/06/2012 documented as of this encounter Care Teams Quarter Doper Relationship Specialty Start Date End Date Star Vasquez MD [address] [place] [address] PCP - General 12/02/08 09/03/12 documented as of this encounter
--- OUTSIDE RECORDS SUMMARY | 2024-01-12 02:07 | XMS_ITS | Encounter Summary ---
Author Organization [facility] Address [address] [place] [address] Care Team Providers Care Ends Down Checker Name Role Phone Star Vasquez MD Primary Care Provider [phone] Reason for Visit * Reason Onset Date Comments Medications Refill 08/23/2010 Encounter Details Date Type Department Care Team (Late st Contact Info) Description 08/23/[address] [place] [address] Star Vasquez MD [address] [place] [address] Medications Refill Social History Tobacco Use Types [...] Tab by mouth daily. 30 Tab 5 08/23/2010 09/27/2010 documented in this encounter Miscellaneous Notes * Telephone Encounter - Star Vasquez MD - 08/23/2010 9555 EST I sent the Rx to the pharmacy. documented in this encounter Plan of Treatment Upcoming Encounters Date Type Department Care Team (Late st Contact Info) Description 02/03/2024 12:45 EDT Office Visit [facility] Ophthalmology [facility] [address] [place] [address] Goldy Guzman MD [address] [place] [phone] documented as of this encounter Visit Diagnoses Not on filedocumented in this encounter Discontinued Medications Medication Sig Discontinue Reason Start Date End Da te simvastatin (ZOCOR) 40 mg tablet Take 1 Tab by mouth daily. Reorder 12/05/2009 08/23/2010 documented as of this encounter Care Teams Ends Down Checker Relationship Specialty Start Date End Date Star Vasquez MD [address] [place] [address] PCP - General 12/02/08 09/03/12 documented as of this encounter
--- OUTSIDE RECORDS SUMMARY | 2024-01-12 02:07 | XMS_ITS | Encounter Summary ---
Author Organization [facility] Address [address] [place] [address] Care Team Providers Care Electrical/Instrument Technician Name Role Phone Star Vasquez MD Primary Care Provider [phone] Reason for Visit * Reason Onset Date Comments Medication Management 09/25/2010 Encounter Details Date Type Department Care Team (Late st Contact Info) Description 09/25/[address] [place] [address] Star Vasquez MD [address] [place] [phone] Medication Management Social History Tobacco Use Types Packs/Day Years [...] Dispensed Refills Start Date End Da te loratadine (CLARITIN) 10 mg tablet Take 1 Tab by mouth daily. 90 Tab 2 09/27/2010 04/25/2011 simvastatin (ZOCOR) 40 mg tablet Take 1 Tab by mouth daily. 90 Tab 1 09/27/2010 09/06/2011 documented in this encounter Miscellaneous Notes * Telephone Encounter - Star Vasquez MD - 09/28/2010 0974 EDT ok - thx * Telephone Encounter - Leeanne Clements - 09/27/2010 0958 EDT Pt notified, is still on aggrenox and gabapentin--I changed her refills that you already approved to a 90 day supply per her request * Telephone Encounter - Star Vasquez MD - 09/25/2010 2339 EDT the potassium is just a small chemical use to make the losartan, but it is not in any measurable ordose-equivalent amount - it will NOT increase her potassium levels at all. I will resend all her Rx for #60 - need to know which meds (is she still on aggrenox? Is she takinggabapentin?) * Telephone Encounter - Sue Delaney - 09/25/2010 1624 EDT Randi is having some issues with her medicines that she hopes we can help her with. She knows shewon't get a call back right away. The first issue is that she says her Losartin now has potassium in it, and she doesn't want that, unless she has to have it. The second issue is that she would prefer if she could have her Rx's streamlined somehow, so that she can pick them up at the same time, at least some of them. She prefers 60 days, because the 90 daybottles are too big. documented in this encounter Plan of Treatment Upcoming Encounters Date Type Department Care Team (Late st Contact Info) Description 02/03/2024 12:45 EDT Office Visit [facility] Ophthalmology [facility] [address] [place] [address] Goldy Guzman MD [address] [place] [address] documented as of this encounter Visit Diagnoses Not on filedocumented in this encounter Discontinued Medications Medication Sig Discontinue Reason Start Date End Da te simvastatin (ZOCOR) 40 mg tablet Take 1 Tab by mouth daily. 08/23/2010 09/27/2010 loratadine (CLARITIN) 10 mg tablet Take 1 Tab by mouth daily. Reorder 03/30/2010 09/27/2010 documented as of this encounter Care Teams Electrical/Instrument Technician Relationship Specialty Start Date End Date Star Vasquez MD [address] [place] [address] PCP - General 12/02/08 09/03/12 documented as of this encounter
--- OUTSIDE RECORDS SUMMARY | 2024-01-12 02:07 | XMS_ITS | Encounter Summary ---
Author Organization [facility] Address [address] [place] [address] Care Team Providers Care Artificial Marble Worker Name Role Phone Star Vasquez MD Primary Care Provider [phone] Reason for Visit * Reason Onset Date Comments Other 10/15/2011 spells/weakness/ ? next follow-up Encounter Details Date Type Department Care Team (Late st Contact Info) Description 10/15/2011 Telephone [facility] Medicine [address] [place] [address] Star Vasquez MD [address] [place] [address] Other (spells/weakness/? next follow-up) Social History Tobacco Use Types Packs/Day Years [...] * Telephone Encounter - Leeanne Clements - 10/21/2011 0913 EDT Pt given this info * Telephone Encounter - Star Vasquez MD - 10/18/2011 1730 EDT Her fatigue could be due to her medications, specifically her blood pressure and cholesterol medications. However, given her strokes and high blood pressure, it would be risky to discontinue any of these medications. We could try decreasing the dose of her cholesterol medication, and possibly switching to different blood pressure medications to see if that helps at all. I don't think that there is any benefit to getting a stress test done, as heart disease does not usually show up as fatigue. I would recommend STOPPING her simvastatin for 1 month, then follow-up with me at that time. * Telephone Encounter - Leeanne Clements - 10/15/2011 1319 EDT Continues to feel extremely fatigued--wants to know if a stress test might benefit her or what is next to help figure out why she feels this way ? * Telephone Encounter - Ashlee Paul - 10/15/2011 105 EDT Pt is calling to find out what other testing might be done to help get to the bottom of her 'spells'; someone suggested to her that it might be helpful for her to have a stress test. Please call to discuss your recommendations documented in this encounter Plan of Treatment Upcoming Encounters Date Type Department Care Team (Late st Contact Info) Description 02/03/2024 12:45 EDT Office Visit [facility] Ophthalmology [facility] [address] [place] [address] Goldy Guzman MD [address] [place] [phone] documented as of this encounter Visit Diagnoses Not on filedocumented in this encounter Discontinued Medications Medication Sig Discontinue Reason Start Date End Da te lorazepam (ATIVAN) 1 mg tabletIndications:CVA (cerebral infarction) Take 1 Tab by mouth once for 1 dose. 09/06/2011 10/18/2011 documented as of this encounter Care Teams Artificial Marble Worker Relationship Specialty Start Date End Date Star Vasquez MD [address] [place] [address] PCP - General 12/02/08 09/03/12 documented as of this encounter
--- OUTSIDE RECORDS SUMMARY | 2024-01-12 02:07 | XMS_ITS | Encounter Summary ---
Author Organization [facility] Address [address] [place] [address] Care Team Providers Care Front Window Cashier Name Role Phone Star Vasquez MD Primary Care Provider [phone] Reason for Referral * Consult (Routine) - Closed Specialty Diagnoses / Procedures Referred By Layne romeo Referred To Contact Diagnoses Carpal tunnel syndrome Star Vasquez MD [address] [place] [address] [facility] [place] [address] [place] [address] Referral ID Status Reason Start Date Expiration Date V isits Requested Visits Authorized [id number] Closed Specialty Services Required 04/29/2011 1 1 Question Answer Reason for Request: carpal tunnel Comments Dr. Crump Reason for Visit * Reason Comments Verrucous Vulgaris (Warts) right foot wa rts and callouses Encounter Details Date Type Department Care Team (Late st Contact Info) Description 04/29/2011 14:15 EDT Office Visit [facility] Medicine [address] [address] Star Vasquez MD [address] [place] [address] Carpal tunnel syndrome (Primary Dx); Plantar wart; Plantar wart of right foot Social History Tobacco Use Types Packs/Day Years [...] Sign Reading Time Taken Comments Blood Pressure 142/80 04/29/2011 1428 EDT Pulse 76 04/29/2011 1428 EDT Temperature - - Respiratory Rate 18 04/29/2011 1428 EDT Oxygen Saturation - - Inhaled Oxygen Concentration - - Weight 71.7 kg (158 lb) 04/29/2011 1428 EDT Height - - Body Mass Index 28.9 04/25/2011 1102 EDT documented in this encounter Progress Notes * Star Vasquez MD - 04/29/2011 1452 EDT Subjective: Patient ID: Randi Oswald is an 70 y.o. female. Chief Complaint Patient presents with ??? Verrucous Vulgaris (Warts) right foot warts and callouses HPI Comments: wrist pain - has seen Dr. Crump for trigger finger and knee problems, now has recurrent pain from carpal tunnel - she denies any prior carpal tunnel release, but her chart says otherwise? memory - for unclear reasons, she would like to cancel memory clinic appt. warts - has been soaking and filing, had no problems after last treatment course Patient Active Problem List Diagnoses ??? CVA [...] to Visit Medication Sig Dispense Refill ??? trazodone (DESYREL) [...] rare ROS - See HPI Objective: BP 142/80 Pulse 76 Resp 18 Wt 71.668 kg (158 lb) [...] is warm and dry. No rash noted. Psychiatric: She has a normal mood and affect. Her behavior is normal. Assessment: Plan: Randi was seen today for verrucous vulgaris (warts). Diagnoses and associated orders for this visit: Carpal tunnel syndrome - ? s/p release or not - Ambulatory Consult Orthopedics to Dr. Crump Plantar wart - debrided, cryo today Memory Problems cancel appt at her request * Star Vasquez MD - 04/29/2011 1439 EDT Pre-op diagnosis/Post-op diagnosis: wart(s) Consent: Potential risks [...] Info) Description 02/03/2024 12:45 EDT Office Visit [facility] Ophthalmology [address] [address] Goldy Guzman MD [address] [place] [phone] Scheduled Referrals Name Type Priority Associated Diagnoses Order Schedule AMB CONSULT ORTHOPEDICS Outpatient Referral Routine Carpal tunnel syndrome Ordered: 04/29/2011 documented as of this encounter Visit Diagnoses Diagnosis Carpal tunnel syndrome- Primary Plantar wart Plantar wart of right foot Plantar wart documented in this encounter Care Teams Front Window Cashier Relationship Specialty Start Date End Date Star Vasquez MD [address] [place] [address] PCP - General 12/02/08 09/03/12 documented as of this encounter
--- OUTSIDE RECORDS SUMMARY | 2024-01-12 02:07 | XMS_ITS | Encounter Summary ---
Author Organization [facility] Address [address] [place] [address] Care Team Providers Care Treatment Specialist Name Role Phone Star Vasquez MD Primary Care Provider [phone] Reason for Visit * Reason Onset Date Comments Other 10/11/2011 Encounter Details Date Type Department Care Team (Late st Contact Info) Description 10/11/[address] [place] [address] Star Vasquez MD [address] [place] [address] Other Social History Tobacco Use Types Packs/Day [...] * Telephone Encounter - Leeanne Clements - 10/11/2011 1740 EDT Pt given this info * Telephone Encounter - Star Vasquez MD - 10/11/2011 1741 EDT no, TIA would not show on MRI * Telephone Encounter - Jessi Martin - 10/11/2011 1336 EDT Pt had to cancel her appt for this afternoon, she does not have a ride. She is asking a ?? About the MRI she had, she wants to know if the TIA would show up on the MRI? documented in this encounter Plan of Treatment Upcoming Encounters Date Type Department Care Team (Late st Contact Info) Description 02/03/2024 12:[address] [facility] Ophthalmology [facility] [address] [place] [address] Goldy Guzman MD [address] [place] [phone] documented as of this encounter Visit Diagnoses Not on filedocumented in this encounter Care Teams Treatment Specialist Relationship Specialty Start Date End Date Star Vasquez MD [address] [place] [address] PCP - General 12/02/08 09/03/12 documented as of this encounter
--- OUTSIDE RECORDS SUMMARY | 2024-01-12 02:07 | XMS_ITS | Encounter Summary ---
Author Organization [facility] Address [address] [place] [address] Care Team Providers Care Hebrew Cantor Name Role Phone Star Vasquez MD Primary Care Provider [phone] Reason for Visit * Reason Onset Date Comments Medications Refill 07/02/2010 Encounter Details Date Type Department Care Team (Late st Contact Info) Description 07/02/2010 Refill [facility] Family Medicine [address] [phone] Star Vasquez MD [address] [place] [phone] Medications Refill Social History Tobacco Use Types [...] for Pain. 60 Tab 5 07/02/2010 12/16/2011 documented in this encounter Plan of Treatment Upcoming Encounters Date Type Department Care Team (Late st Contact Info) Description 02/03/2024 12:45 EDT Office Visit [facility] Ophthalmology [facility] [address] [place] [address] Goldy Guzman MD [address] [place] [phone] documented as of this encounter Visit Diagnoses Not on filedocumented in this encounter Discontinued Medications Medication Sig Discontinue Reason Start Date End Da te ibuprofen (MOTRIN) 600 mg tablet Take 1 Tab by mouth every 8 hours as needed for Pain. Reorder 04/26/2010 07/02/2010 documented as of this encounter Care Teams Hebrew Cantor Relationship Specialty Start Date End Date Star Vasquez MD [address] [place] [address] PCP - General 12/02/08 09/03/12 documented as of this encounter
--- OUTSIDE RECORDS SUMMARY | 2024-01-12 02:07 | XMS_ITS | Encounter Summary ---
Author Organization [facility] Address [address] [place] [address] Care Team Providers Care Cardiac Nurse Name Role Phone Star Vasquez MD Primary Care Provider [phone] Reason for Referral * Consult (Routine) - Closed Specialty Diagnoses / Procedures Referred By Layne romeo Referred To Contact Diagnoses Wrist pain Star Vasquez MD [address] [address] [address] [facility] [address] [address] Referral ID Status Reason Start Date Expiration Date V isits Requested Visits Authorized [id number] Closed Specialty Services Required 07/11/2011 1 1 Question Answer Reason for Request: wrist pain - patient requests consult for ? Carpal tunnel Comments Dr. Crump Reason for Visit * Reason Onset Date Comments Referral Request 07/11/2011 CTS in left wri st Encounter Details Date Type Department Care Team (Late st Contact Info) Description 07/11/2011 Telephone [facility] Medicine [address] [address] Star Vasquez MD [address] [address] Referral Request (CTS in left wrist) Social History Tobacco Use Types Packs/Day Years [...] Telephone Encounter - Star Vasquez MD - 07/11/2011 1515 EST done * Telephone Encounter - Ashlee Paul - 07/11/2011 1022 EST Pt is having quite a bit of pain in left wrist; requesting referral to Dr. Crump to check for CTS documented in this encounter Plan of Treatment Upcoming Encounters Date Type Department Care Team (Late st Contact Info) Description 02/03/2024 12:45 EDT Office Visit [facility] [address] [place] [address] Goldy Guzman MD [address] [place] [address] Scheduled Referrals Name Type Priority Associated Diagnoses Order Schedule AMB CONSULT ORTHOPEDICS Outpatient Referral Routine Wrist pain Ordered: 07/11/2011 documented as of this encounter Visit Diagnoses Diagnosis Wrist pain- Primary Pain in joint, forearm documented in this encounter Care Teams Cardiac Nurse Relationship Specialty Start Date End Date Star Vasquez MD [address] [place] [address] PCP - General 12/02/08 09/03/12 documented as of this encounter
--- OUTSIDE RECORDS SUMMARY | 2024-01-12 02:07 | XMS_ITS | Encounter Summary ---
Author Organization [facility] Address [address] [place] [address] Care Team Providers Care Seismograph Helper Name Role Phone Star Vasquez MD Primary Care Provider [phone] Reason for Referral * Radiology Services (Routine) - Closed Specialty Diagnoses / Procedures Referred By Layne romeo Referred To Contact Diagnoses Internal derangement of knee Procedures MRI KNEE Star Vasquez MD [address] [place] [address] Referral ID Status Reason Start Date Expiration Date Visits Re quested Visits Authorized [id number] Closed 03/08/2011 1 1 Reason for Visit * Reason Comments Knee Pain right knee pain inte rm. for few mos. --feels like it might give out at times Allergies worsening nasal raji rgy sx's Callouses right foot Other discuss gabapentin Other discuss second hand smoke from pipe Oral Swelling lip lesion Encounter Details Date Type Department Care Team (Late st Contact Info) Description 03/08/2011 13:45 EDT Office Visit [facility] Medicine [address] [place] [address] Star Vasquez MD [address] [place] [address] Sleep disorder (Primary Dx); Internal derangement of knee Social History Tobacco Use Types Packs/Day Years [...] Sign Reading Time Taken Comments Blood Pressure 132/80 03/08/2011 1346 EDT Pulse 64 03/08/2011 1346 EDT Temperature - - Respiratory Rate 16 03/08/2011 1346 EDT Oxygen Saturation - - Inhaled Oxygen Concentration - - Weight 71.7 kg (158 lb) 03/08/2011 1346 EDT Height - - Body Mass Index 29.37 08/31/2010 1451 EST documented in this encounter Patient Instructions * Patient Instructions* Star Vasquez MD - 03/08/2011 14:38 EDT Gabapentin Take 1 full tablet (2 halves) every night for 1 week, then Take 1/2 tablet every night for 1 week, then stop gabapentin. Trazadone On your first night without gabapentin, take trazadone 50mg - 1 tablet at bedtime. Cont trazadone 1 tab at bedtime for 3 days then increase to 2 tabs at bedtime. documented in this encounter Ordered Prescriptions Prescription Sig Dispensed Refills Start Date End Da te trazodone (DESYREL) 50 mg tabletIndications:Sleep disorder Take by mouth at bedtime. Start at 1 tablet (50mg) at bedtime for first 3 nights, then increase to 2 tabs (100mg) 60 Tab 0 03/08/2011 04/01/2011 documented in this encounter Progress Notes * Star Vasquez MD - 03/08/2011 1426 EDT Subjective: Patient ID: Randi Oswald is an 70 y.o. female. Chief Complaint Patient presents with ??? Knee Pain right knee pain interm. for few mos. --feels like it might give out at times ??? Allergies worsening nasal allergy sx's ??? Callouses right foot ??? Other discuss gabapentin ??? Other discuss second hand smoke from pipe ??? Oral Swelling lip lesion HPI Comments: KNEE - Right knee injury remotely. Started with problems past few months. Almost gave out last week- maybe getting worse. Pain at times, armen( at night. Feels locked at times. SLEEP - Has tried to sleep without meds and does not do well. Taking gabapentin - unclear dose. Feels groggy during daytime. Has not tried trazadone. Knee Pain Other Oral Swelling Patient Active Problem List Diagnoses Code ??? [...] to encounter Medication Sig Dispense Refill ??? dipyridamole-aspirin (AGGRENOX) 200-25 mg per capsule [...] Take 600 mg by mouth at bedtime. No Known Allergies Social History Substance Use Topics ??? Smoking status: Former Smoker -- 30 years ??? Smokeless tobacco: Not on file ??? Alcohol Use: Yes rare ROS - See HPI Objective: BP 132/80 Pulse 64 Resp 16 Wt 71.668 kg (158 lb) Physical Exam Constitutional: She is oriented to person, place, and time. She appears well- developed and well-nourished. Non-toxic appearance. Eyes: Conjunctivae are normal. No scleral icterus. Cardiovascular: Regular rhythm. Pulmonary/Chest: Effort normal. Musculoskeletal: Right knee: She exhibits normal range of motion, no effusion and no erythema. tenderness found. MCLtenderness noted. Neurological: She is alert and oriented to person, place, and time. Gait normal. GCS eye subscore is 4. GCS verbal subscore is 5. GCS motor subscore is 6. Skin: Skin is warm and dry. No rash noted. Assessment: Plan: Randi was seen today for knee pain, allergies, callouses, other, other and oral swelling. Diagnoses and associated orders for this visit: Sleep disorder - trazodone (DESYREL) 50 mg tablet; Take by mouth at bedtime. Start at 1 tablet (50mg) at bedtime for first 3 nights, then increase to 2 tabs (100mg) Internal derangement of knee - MRI KNEE Patient Instructions: Gabapentin Take 1 full tablet (2 halves) every night for 1 week, then Take 1/2 tablet every night for 1 week, then stop gabapentin. Trazadone On your first night without gabapentin, take trazadone 50mg - 1 tablet at bedtime. Cont trazadone 1 tab at b documented in this encounter Plan of Treatment Upcoming Encounters Date Type Department Care Team (Late st Contact Info) Description 02/03/2024 12:45 EDT Office Visit [facility] Ophthalmology [facility] [address] [place] [address] Goldy Guzman MD [address] [place] [phone] Scheduled Orders Name Type Priority Associated Diagnoses Orde r Schedule MRI KNEE Imaging Routine Internal derangement of knee Ordered: 03/08/2011 documented as of this encounter Visit Diagnoses Diagnosis Sleep disorder- Primary Sleep disturbance, unspecified Internal derangement of knee Unspecified internal derangement of knee documented in this encounter Discontinued Medications Medication Sig Discontinue Reason Start Date End Da te gabapentin (NEURONTIN) 300 mg capsule Take 600 mg by mouth at bedtime. 03/08/2011 documented as of this encounter Care Teams Seismograph Helper Relationship Specialty Start Date End Date Star Vasquez MD [address] [place] [phone] PCP - General 12/02/08 09/03/12 documented as of this encounter
--- OUTSIDE RECORDS SUMMARY | 2024-01-12 02:07 | XMS_ITS | Encounter Summary ---
Author Organization [facility] Address [address] [place] [address] Care Team Providers Care Farmworkers Name Role Phone Star Vasquez MD Primary Care Provider [phone] Reason for Visit * Reason Onset Date Comments Medications Refill 12/16/2011 Encounter Details Date Type Department Care Team (Late st Contact Info) Description 12/16/[address] [place] [address] Star Vasquez MD [address] [place] [address] Medications Refill Social History Tobacco Use Types [...] 2 tabs (100mg) 120 Tab 4 12/16/2011 tramadol (ULTRAM) 50 mg tablet Take 1 Tab by mouth every 6 hours as needed for Pain. 30 Tab 1 12/16/2011 03/21/2012 ibuprofen (MOTRIN) 600 mg tablet Take 1 Tab by mouth every 8 hours as needed for Pain. 60 Tab 5 12/16/2011 11/07/2012 documented in this encounter Plan of Treatment Upcoming Encounters Date Type Department Care Team (Late st Contact Info) Description 02/03/2024 12:45 EDT Office Visit [facility] Ophthalmology [facility] [address] [place] [address] Goldy Guzman MD [address] [place] [address] documented as of this encounter Visit Diagnoses Diagnosis Sleep disorder- Primary Sleep disturbance, unspecified documented in this encounter Discontinued Medications Medication Sig Discontinue Reason Start Date End Da te ibuprofen (MOTRIN) 600 mg tablet Take 1 Tab by mouth every 8 hours as needed for Pain. Reorder 07/02/2010 12/16/2011 trazodone (DESYREL) 50 mg tabletIndications:Sleep disorder Take 3-4 Tabs by mouth at bedtime. Start at 1 tablet (50mg) at bedtime for first 3 nights, then increase to 2 tabs (100mg) Reorder 04/01/2011 12/16/2011 tramadol (ULTRAM) 50 mg tablet Take 1 Tab by mouth every 6 hours as needed for Pain. Reorder 09/20/2010 12/16/2011 documented as of this encounter Care Teams Farmworkers Relationship Specialty Start Date End Date Star Vasquez MD [address] [place] [address] PCP - General 12/02/08 09/03/12 documented as of this encounter
--- OUTSIDE RECORDS SUMMARY | 2024-01-12 02:07 | XMS_ITS | Encounter Summary ---
Author Organization [facility] Address [address] [place] [address] Care Team Providers Care Route Delivery Manager Name Role Phone Star Vasquez MD Primary Care Provider [phone] Reason for Visit * Reason Comments URI Cold sx's x 3 weeks. Encounter Details Date Type Department Care Team (Late st Contact Info) Description 05/08/2012 15:00 EST Office Visit [facility] Family Medicine [address] [address] Junior Azevedo PA-C Sinusitis (Primary Dx) Social History Tobacco Use Types [...] Sign Reading Time Taken Comments Blood Pressure 130/70 05/08/2012 1506 EST Pulse 88 05/08/2012 1506 EST Temperature 36.8 ??C (98.3 ??F) 05/08/2012 1506 EST Respiratory Rate - - Oxygen Saturation - - Inhaled Oxygen Concentration - - Weight 69.4 kg (153 lb) 05/08/2012 1506 EST Height - - Body Mass Index 27.98 04/20/2012 1008 EDT documented in this encounter Ordered Prescriptions Prescription Sig Dispensed Refills Start Date End Da te amoxicillin (AMOXIL) 875 mg tabletIndications:Sinusiti s Take 1 Tab by mouth 2 times daily. 20 Tab 0 05/08/2012 06/09/2012 documented in this encounter Progress Notes * Junior Azevedo PA-C - 05/08/2012 1527 EST Subjective: Patient ID: Randi Oswald is an 71 y.o. female. Chief Complaint Patient presents with ??? URI Cold sx's x 3 weeks. URI This is a new problem. Episode onset: 3 weeks ago. The problem has been gradually worsening. There has been no fever. Associated symptoms include congestion, coughing, rhinorrhea, sinus pain and a sore throat. Pertinent negatives include no chest pain or headaches. She has tried NSAIDs for the sympt oms. The treatment provided no relief. Patient Active Problem List Diagnoses ??? Cerebral [...] of both eyes ??? Chronic kidney disease Past Medical History Diagnosis Date ??? Anemia ??? Cataract Current Outpatient Prescriptions on File Prior to Visit Medication Sig Dispense Refill ??? losartan (COZAAR) 100 mg tablet TAKE ONE TABLET BY MOUTH EVERY DAY 90 Each 3 ??? simvastatin (ZOCOR) 40 mg tablet TAKE ONE TABLET BY MOUTH EVERY DAY 90 Each 3 ??? tramadol (ULTRAM) 50 mg tablet TAKE 1 TABLET BY MOUTH EVERY 6 HOURS NEEDED FOR PAIN 30 Each 5 ??? dipyridamole-aspirin (AGGRENOX) 200-25 mg per capsule Take 1 Cap by mouth 2 times daily. 180 Cap 1 ??? ibuprofen (MOTRIN) 600 mg tablet Take 1 Tab by mouth every 8 hours as needed for Pain. 60 Tab 5 ??? trazodone (DESYREL) 50 mg tablet Take 3-4 Tabs by mouth at bedtime. Start at 1 tablet (50mg) atbedtime for first 3 nights, then increase to 2 tabs (100mg) 120 Tab 4 ??? lansoprazole (PREVACID) 30 mg capsule Take 1 Cap by mouth daily. 30 Cap 11 ??? VITAMIN B COMPLEX (B COMPLEX 50 ORAL) Take by mouth daily. ??? Calcium-Cholecalciferol, D3, (CALCIUM WITH VITAMIN D) 600-400 mg-unit Tab Take 1 Tab by mouth daily. No Known Allergies Social History Substance Use Topics ??? Smoking status: Former Smoker -- 30 years ??? Smokeless tobacco: Not on file ??? Alcohol Use: Yes rare Review of Systems Constitutional: Negative for fever and chills. HENT: Positive for congestion, sore throat and rhinorrhea. Respiratory: Positive for cough. Negative for sputum production. Cardiovascular: Negative for chest pain. Neurological: Negative for headaches. - See HPI Objective: BP 130/70 Pulse 88 Temp(Src) 36.8 ??C (98.3 ??F) (Oral) Wt 69.4 kg (153 lb) Physical Exam Constitutional: She appears well-developed and well-nourished. No distress. HENT: Right Ear: Tympanic membrane normal. Left Ear: Tympanic membrane normal. Posterior pharyngeal erythema. Moderate nasal congestion; facial & forehead pressure. Eyes: Conjunctivae are normal. Cardiovascular: Normal heart sounds. Pulmonary/Chest: Breath sounds normal. Lymphadenopathy: She has no cervical adenopathy. Assessment: Persistent respiratory illness, secondary sinusitis. Plan: Randi was seen today for uri. Diagnoses and associated orders for this visit: Sinusitis - amoxicillin (AMOXIL) 875 mg tablet; Take 1 Tab by mouth 2 times daily. Continue increased fluids, nasal steam. Antibiotics as prescribed. Follow up with persistent/worsening symptoms. Return if symptoms worsen or fail to improve. Supervising physician. Garry Henry MD documented in this encounter Plan of Treatment Upcoming Encounters Date Type Department Care Team (Late st Contact Info) Description 02/03/2024 12:45 EDT Office Visit [facility] Ophthalmology [facility] [address] [place] [address] Goldy Guzman MD [address] [place] [phone] documented as of this encounter Visit Diagnoses Diagnosis Sinusitis- Primary Unspecified sinusitis (chronic) documented in this encounter Care Teams Route Delivery Manager Relationship Specialty Start Date End Date Star Vasquez MD [address] [place] [phone] PCP - General 12/02/08 09/03/12 documented as of this encounter
--- OUTSIDE RECORDS SUMMARY | 2024-01-12 02:07 | XMS_ITS | Encounter Summary ---
Author Organization [facility] Address [address] [place] [address] Care Team Providers Care Claims Assistant Name Role Phone Star Vasquez MD Primary Care Provider [phone] Reason for Visit * Reason Comments Ear Fullness left ear feels full. sometimes painful. Encounter Details Date Type Department Care Team (Late st Contact Info) Description 03/30/2012 8:45 EDT Office Visit [facility] Family Medicine [address] [place] [address] Star Vasquez MD [address] [place] [address] Impacted cerumen of left ear (Primary Dx) Social History Tobacco Use Types [...] Sign Reading Time Taken Comments Blood Pressure 150/78 03/30/2012 0900 EDT Pulse 84 03/30/2012 0900 EDT Temperature 36.8 ??C (98.2 ??F) 03/30/2012 0900 EDT Respiratory Rate - - Oxygen Saturation - - Inhaled Oxygen Concentration - - Weight 70.8 kg (156 lb) 03/30/2012 0900 EDT Height - - Body Mass Index 28.53 04/25/2011 1102 EDT documented in this encounter Patient Instructions * Patient Instructions* Star Vasquez MD - 03/30/2012 9:26 EDT Images from the original note were not included. [facility] Patient Instructions Earwax Blockage: After Your Visit Your Care Instructions Earwax is a natural substance that protects the ear canal. Normally, earwax drains from the ears and does not cause problems. Sometimes earwax builds up and hardens. Earwax blockage (also called cerumen impaction) can cause some loss of hearing and pain. When wax is tightly packed, you will need tohave your doctor remove it. Follow-up care is a cesar part of your treatment and safety. Be sure to make and go to all appointments, and call your doctor if you are having problems. It???s also a good idea to know your test results and keep a list of the medicines you take. How can you care for yourself at home? ?? Do not try to remove earwax with cotton swabs, fingers, or other objects. This can make the blockage worse and damage the eardrum. ?? If your doctor recommends that you try to remove earwax at home: ?? Soften and loosen the earwax with warm mineral oil. You also can try hydrogen peroxide mixed with an equal amount of room temperature water. Place 2 drops of the fluid, warmed to body temperature,in the ear two times a day for up to 5 days. ?? Once the wax is loose and soft, all that is usually needed to remove it from the ear canal is a gentle, warm shower. Direct the water into the ear, then tip your head to let the earwax drain out. Dry your ear thoroughly with a assistant hairstylist set on low. Hold the dryer several inches from your ear. ?? If the warm mineral oil and shower do not work, use an [id number] wax softener followed bygentle flushing with an ear syringe each night for a week or two. Make sure the flushing solution is body temperature. Cool or hot fluids in the ear can cause dizziness. When should you call for help? Call your doctor now or seek immediate medical care if: ?? Pus or blood drains from your ear. ?? Your ears are ringing or feel full. ?? You have a loss of hearing. Watch closely for changes in your health, and be sure to contact your doctor if: ?? You have pain or reduced hearing after 1 week of home treatment. ?? You have any new symptoms, such as nausea or balance problems. Where can you learn more? Go to www.NetMovie.net/fahc Enter Q495 in the search box to learn more about Earwax Blockage: After Your Visit. ?? [id number] [address]. Care instructions adapted under license by [facility], [facility]. This care instruction is for use with your licensed healthcare professional. If you have questions about a medical condition or this instruction, always ask your healthcare professional. [address] [employer] disclaims any warranty or liability for your use of this information. Content Version: 9.2.650562; Last Revised: September 24, 2010 documented in this encounter Progress Notes * Star Vasquez MD - 03/30/2012 0929 EDT Pre-op diagnosis/Post-op diagnosis: Cerumen impaction of the left ear canal Consent: Potential risks and expected benefits were discussed. All questions were answered. Verbal consent was obtained directly from the patient. Time-Out: Proper patient, procedure, and location of lesion(s) were reviewed directly with the patient at the time of the procedure. Anesthesia: not required Prep: None Description: Patient was sitting up. Left ear canal is irrigated by nursing staff with lukewarm tapwater. Patient had mild dizziness very briefly. Despite several attempts at irrigating with water, nursing staff was unable to get a ear canal cleared. Patient had continued symptoms as noted in progress note. With a lighted curette, I was able to remove 2 sizable pieces of impacted cerumen from the canal. Subsequently, a canal was totally clear, TM visible. No trauma to the ear canal. Dizziness resolved. Patient otherwise tolerated the procedure well and was able to ambulate without any difficulties afterwards. EBL: None Specimens: 0 Instructions: Reviewed * Star Vasquez MD - 03/30/2012 0927 EDT Images from the original note were not included. SUBJECTIVE Chief Complaint Patient presents with ??? Ear Fullness left ear feels full. sometimes painful. HPI 1) left ear symptoms - she denies any recent URI, fevers, sore throat. No right ear pain. She does use ear plugs. Occasionally she uses some Q-tips. She has some decreased hearing from the left ear. No trauma 2) Problem List and Social History Reviewed ROS - See HPI OBJECTIVE Blood pressure 150/78, pulse 84, temperature 36.8 ??C (98.2 ??F), temperature source Oral, weight 70.761 kg (156 lb). Estimated Body mass index is 28.53 kg/(m^2) as calculated from the following: Height as of 11: 5' 2(1.575 m). Weight as of this encounter: 156 lb(70.761 kg). Awake, alert, NAD. Heart regular, respirations unlabored. Skin warm, dry, no jaundice. GCS 15, speech normal, gait normal. Impacted cerumen left ear. After irrigation and curettage, left ear canal and TM are normal. Hearing is improved. Results for orders placed during the hospital encounter of 09/27/11 CREATININE, ISTAT Component Value Range Creatinine, i-STAT 0.7 0.7 - 1.5 (mg/dl) Tech ID [id number] ASSESSMENT & PLAN Randi was seen today for ear fullness. Diagnoses and associated orders for this visit: Impacted cerumen of left ear Improved with curettage and irrigation, see procedure note. Patient instructions given and reviewed Return if symptoms worsen or fail to improve. Patient Instructions [facility] Patient Instructions Earwax Blockage: After Your Visit Your Care Instructions Earwax is a natural substance that protects the ear canal. Normally, earwax drains from the ears and does not cause problems. Sometimes earwax builds up and hardens. Earwax blockage (also called cerumen impaction) can cause some loss of hearing and pain. When wax is tightly packed, you will need tohave your doctor remove it. Follow-up care is a cesar part of your treatment and safety. documented in this encounter Plan of Treatment Upcoming Encounters Date Type Department Care Team (Late st Contact Info) Description 02/03/2024 12:45 EDT Office Visit [facility] Ophthalmology [facility] [address] [place] [address] Goldy Guzman MD [address] [place] [address] documented as of this encounter Visit Diagnoses Diagnosis Impacted cerumen of left ear- Primary Impacted cerumen documented in this encounter Care Teams Claims Assistant Relationship Specialty Start Date End Date Star Vasquez MD [address] [place] [address] PCP - General 12/02/08 09/03/12 documented as of this encounter
--- OUTSIDE RECORDS SUMMARY | 2024-01-12 02:07 | XMS_ITS | Encounter Summary ---
Author Organization [facility] Address [address] [place] [address] Care Team Providers Care Tick Sewer Name Role Phone Star Vasquez MD Primary Care Provider [phone] Reason for Visit * Reason Onset Date Comments Medications Refill 05/09/2011 Encounter Details Date Type Department Care Team (Late st Contact Info) Description 05/09/2011 Refill [facility] Family [address] [address] Star Vasquez MD [address] [place] [phone] Medications Refill Social History Tobacco Use Types [...] times daily. 180 Cap 1 05/09/2011 02/21/2012 documented in this encounter Plan of Treatment Upcoming Encounters Date Type Department Care Team (Late st Contact Info) Description 02/03/2024 12:45 EDT Office Visit [facility] Ophthalmology [facility] [address] [place], [place] [phone] Goldy Guzman MD [address] [place] [address] documented as of this encounter Visit Diagnoses Diagnosis CVA (cerebral infarction)- Primary Unspecified cerebral artery occlusion with cerebral infarction documented in this encounter Discontinued Medications Medication Sig Discontinue Reason Start Date End Da te dipyridamole-aspirin (AGGRENOX) 200-25 mg per capsuleIndications:CVA (cerebral infarction) Take 1 Cap by mouth 2 times daily. Reorder 12/26/2010 05/09/2011 documented as of this encounter Care Teams Tick Sewer Relationship Specialty Start Date End Date Star Vasquez MD [address] [place] [phone] PCP - General 12/02/08 09/03/12 documented as of this encounter
--- OUTSIDE RECORDS SUMMARY | 2024-01-12 02:07 | XMS_ITS | Encounter Summary ---
Author Organization [facility] Address [address] [place] [address] Care Team Providers Care Shredder Operator Name Role Phone Star Vasquez MD Primary Care Provider [phone] Reason for Visit * Reason Onset Date Comments Medications Refill 06/28/2011 Encounter Details Date Type Department Care Team (Late st Contact Info) Description 06/28/2011 Refill [facility] Medicine [address] [place] [address] Star Vasquez MD [address] [place] [address] Medications Refill Social History Tobacco Use Types [...] Tab by mouth daily. 90 Tab 1 06/28/2011 09/07/2011 documented in this encounter Miscellaneous Notes * Telephone Encounter - Star Vasquez MD - 06/28/2011 0384 EST I sent the Rx to the pharmacy. (The potassium is part of the losartan name - it is just the compounding salt used to make the losartan, but not really a potassium supplement) documented in this encounter Plan of Treatment Upcoming Encounters Date Type Department Care Team (Late st Contact Info) Description 02/03/2024 12:45 EDT Office Visit [facility] Ophthalmology [facility] [address] [place] [address] Goldy Guzman MD [address] [place] [address] documented as of this encounter Visit Diagnoses Not on filedocumented in this encounter Discontinued Medications Medication Sig Discontinue Reason Start Date End Da te losartan (COZAAR) 100 mg tablet Take 1 Tab by mouth daily. Reorder 12/27/2010 06/28/2011 documented as of this encounter Care Teams Shredder Operator Relationship Specialty Start Date End Date Star Vasquez MD [address] [place] [address] PCP - General 12/02/08 09/03/12 documented as of this encounter
--- OUTSIDE RECORDS SUMMARY | 2024-01-12 02:07 | XMS_ITS | Encounter Summary ---
Author Organization [facility] Address [address] [place] [address] Care Team Providers Care Database Admin Name Role Phone Star Vasquez MD Primary Care Provider [phone] Reason for Visit * Reason Onset Date Comments Other 09/18/2010 arthrotec Encounter Details Date Type Department Care Team (Late st Contact Info) Description 09/18/2010 Telephone [facility] Medicine [address] [place] [address] Star Vasquez MD [address] [place] [address] Other (arthrotec) Social History Tobacco Use Types Packs/Day Years [...] for Pain. 30 Tab 1 09/20/2010 12/16/2011 documented in this encounter Miscellaneous Notes * Telephone Encounter - Leeanne Clements - 09/21/2010 0932 EDT Called to black arzate notified * Telephone Encounter - Star Vasquez MD - 09/20/2010 1752 EDT thanks - pls call in per medication list * Telephone Encounter - Shelley Ibrahim LPN - 09/20/2010 1740 EDT Spoke with Randi and she does take tramadol on occ and does help with her pain,she needs some more. * Telephone Encounter - Star Vasquez MD - 09/20/2010 1704 EDT tramadol on med list from the past - did that help? * Telephone Encounter - Leeanne Clements - 09/18/2010 1528 EDT Pt is looking for an alternative then--has tried apap without any relief Told her you weren't back until th. * Telephone Encounter - Darron Farmer MD - 09/18/2010 1521 EDT This is a combo of an NSAID and a stomach protective med. It carries the same warning as any other NSAID including the ibuprofen which is on her med list. It doesn't put her at anymore risk than taking regular Ibuprofen every day--which she should not be taking if she takes this new medicine. So, the higher risk for stroke is there with that and ibuprofen and given her previous stroke she shouldn't be on any NSAID unless absolutely necessary. * Telephone Encounter - Arminda Spangler - 09/18/2010 1333 EDT Randi has had another doctor give her some samples of arthrotec. (Dr. Crump) Randi has not started it yet and wondered if this would be an appropriate medicine for her to try? She's worried about the warnings about stroke. documented in this encounter Plan of Treatment Upcoming Encounters Date Type Department Care Team (Late st Contact Info) Description 02/03/2024 12:45 EDT Office Visit [facility] Ophthalmology [facility] [address] [place] [address] Goldy Guzman MD [address] [place] [address] documented as of this encounter Visit Diagnoses Not on filedocumented in this encounter Discontinued Medications Medication Sig Discontinue Reason Start Date End Da te TRAMADOL HCL (TRAMADOL ORAL) Take by mouth as needed. To be prescribed by Dr. Corral only Reorder 09/20/2010 documented as of this encounter Care Teams Database Admin Relationship Specialty Start Date End Date Star Vasquez MD [address] [place] [address] PCP - General 12/02/08 09/03/12 documented as of this encounter
--- OUTSIDE RECORDS SUMMARY | 2024-01-12 02:07 | XMS_ITS | Encounter Summary ---
Author Organization [facility] Address [address] [place] [address] Care Team Providers Care Assessment Consultant Name Role Phone Star Vasquez MD Primary Care Provider [phone] Reason for Visit * Reason Onset Date Comments Orders (Non Pre-visit) 04/16/2012 Encounter Details Date Type Department Care Team (Late st Contact Info) Description 04/16/[address] [place] [address] Star Vasquez MD [address] [place] [phone] Orders (Non Pre-visit) Social History Tobacco Use [...] * Telephone Encounter - Leeanne Clements - 04/16/2012 1547 EDT Spoke with pt, having back pain for several weeks, known injury--rov scheduled for Friday to for ? X rays * Telephone Encounter - Jessi Martin - 04/16/2012 1536 EDT Message for TB for Friday. Pt is asking to have an xray done on her back, she has been having a lot of pain. She is not sure if it is deterorating or not. Sacrum or disc? Please call her tomorrow documented in this encounter Plan of Treatment Upcoming Encounters Date Type Department Care Team (Late st Contact Info) Description 02/03/2024 12:45 EDT Office Visit [facility] Ophthalmology [facility] [address] [place] [address] Goldy Guzman MD [address] [place] [address] documented as of this encounter Visit Diagnoses Not on filedocumented in this encounter Care Teams Assessment Consultant Relationship Specialty Start Date End Date Star Vasquez MD [address] [place] [address] PCP - General 12/02/08 09/03/12 documented as of this encounter
--- OUTSIDE RECORDS SUMMARY | 2024-01-12 02:07 | XMS_ITS | Encounter Summary ---
Author Organization [facility] Address [address] [place] [address] Care Team Providers Care Corporate Learning Consultant Name Role Phone Star Vasquez MD Primary Care Provider [phone] Reason for Visit * Reason Onset Date Comments Results 10/04/2011 MRI Encounter Details Date Type Department Care Team (Late st Contact Info) Description 10/04/[address] [place] [address] Star Vasquez MD [address] [place] [phone] Results (MRI) Social History Tobacco Use Types Packs/Day Years [...] encounter Miscellaneous Notes * Telephone Encounter - Shelley Ibrahim LPN - 10/04/2011 1731 EDT Made pt aware of mri results. * Telephone Encounter - Star Vasquez MD - 10/04/2011 1721 EDT some small strokes in the past (which we already knew about) , nothing recent or concerning * Telephone Encounter - AddiskishanTommieSue - 10/04/2011 1131 EDT Pt is requesting a call back today with results of the MRI she had last week at [facility]. documented in this encounter Plan of Treatment Upcoming Encounters Date Type Department Care Team (Late st Contact Info) Description 02/03/2024 12:45 EDT Office Visit [facility] Ophthalmology [facility] [address] [place] [address] Goldy Guzman MD [address] [place] [address] documented as of this encounter Visit Diagnoses Not on filedocumented in this encounter Care Teams Corporate Learning Consultant Relationship Specialty Start Date End Date Star Vasquez MD [address] [place] [address] PCP - General 12/02/08 09/03/12 documented as of this encounter
--- OUTSIDE RECORDS SUMMARY | 2024-01-12 02:08 | XMS_ITS | Encounter Summary ---
Author Organization [facility] Address [address] [place] [address] Care Team Providers Care Regulatory Auditor Name Role Phone Star Vasquez MD Primary Care Provider [phone] Encounter Details Date Type Department Care Team (Latest Contact Info) Description 05/22/2009 12:36 EST - 05/22/2009 23:59 EST Hospital Encounter [facility] [phone] Unknown, Provider, Discharge Disposition: Home or Self Care Social History Tobacco Use Types Packs/Day Years Used Date Smoking Tobacco: Never Assessed Sex and Gender Information Value Date Recorded Sex Assigned at Not on file Gender Identity Female 10/16/2020 9:54 EDT Sexual Orientation Not on file documented as of this encounter Discharge Disposition Disposition Code Departure Means Destination Home or Self Longterm documented in this encounter Plan of Treatment Upcoming Encounters Date Type Department Care Team (Late st Contact Info) Description 02/03/2024 12:45 EDT Office Visit [facility] Ophthalmology [facility] [address] [place] [address] Goldy Guzman MD [address] [place] [address] documented as of this encounter Procedures Procedure Name Priority Date/Time Associated Diagnosis Comments XR CHEST 2V 14825 05/22/2009 13: 05 EST documented in this encounter Results * XR CHEST 2V 19802 (05/22/2009 13:05 EST) Anatomical Region Laterality Modality Other 05/22/2009 13:0 5 EST 05/22/2009 17:31 EST Narrative 05/22/2009 17:31 EST XR CHEST 2V 35548 ??May 22, 2009 01:05:00 PM Clinical History/Comments: pre op Comparison: 08/09/2006. Findings: 2 views of the chest were performed. The lungs are clear. Cardiomediastinal silhouette is within normal limits. The pulmonary vascularity is normal. The bony structures are within normal limits for patient age. The upper abdomen is unremarkable. Impression: No evidence of acute cardiopulmonary disease. Procedure Note 05/22/2009 XR CHEST 2V 32170 May 22, 2009 01:05:00 PM Clinical History/Comments: pre op Comparison: 08/09/2006. Findings: 2 views of the chest were performed. The lungs are clear. Cardiomediastinal silhouette is within normal limits. The pulmonary vascularity is normal. The bony structures are within normal limits for patient age. The upper abdomen is unremarkable. Impression: No evidence of acute cardiopulmonary disease. Provider Unknown IMG DIAGNOSTIC IMAGI NG ORDERABLES documented in this encounter Visit Diagnoses Not on filedocumented in this encounter Care Teams Regulatory Auditor Relationship Specialty Start Date End Date Star Vasquez MD [address] [place] [address] PCP - General 12/02/08 09/03/12 documented as of this encounter
--- OUTSIDE RECORDS SUMMARY | 2024-01-12 02:08 | XMS_ITS | Encounter Summary ---
Author Organization [facility] Address [address] [place] [address] Care Team Providers Care Dermatology Specialist Name Role Phone Star Vasquez MD Primary Care Provider [phone] Encounter Details Date Type Department Care Team (Late st Contact Info) Description 08/31/2008 Before PRISM Converted Visit (Maple) [facility] conversion [address] [place] [address] Estefani Rich MD [address] [place] [phone] Social History Tobacco Use Types Packs/Day Years Used Date Smoking Tobacco: Never Assessed Sex and Gender Information Value Date Recorded Sex Assigned at Not on file Gender Identity Female 10/16/2020 9:54 EDT Sexual Orientation Not on file documented as of this encounter Progress Notes * Estefani Rich MD - 08/02/2009 0036 EST PHYSICAL MEDICINE / REHABILITATION PROGRESS/FOLLOWUP NOTE - 08/31/2008 OUTPATIENT FOLLOW-UP CLINIC DATE OF SERVICE: 08/31/2008 ATTENDING PHYSICIAN: Estefani Rich MD REFERRING PHYSICIAN: Melodie Elliott MD PRIMARY CARE PHYSICIAN: Star Vasquez MD CHIEF COMPLAINT Neck and shoulder pain. SUBJECTIVE Randi Oswald is a 67-year-old woman being seen at the request of Dr Elliott due to some neck and shoulder pain with concerns that it is related to her stroke condition. Randi is here accompanied by her . 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 She had a brief inpatient stay from August 12 to August 23 and has been home since then. She reports that her shoulder, the collarbone area started to give her some difficulty a short time after shewas home. She doesnt remember a trauma or a fall. She knows she was using walkers and canes at that time butdoesnrecall a trauma. She knows when this area first started to bother, her arm felt best if she wrapped it and kept it close to her side. She has been followed by a Dr Corral, an osteopathic physician to help with this pain and discomfort. He has done an adjustment that will help temporarily, but her symptoms recur. Immediate post rehab, she was also ambulating with an AFO and receiving home therapy services. I saw her for brace clinic evaluation in October of 2006. She was sent out using a PLSO but did not followup with therapies. She could not locate the brace today she reports prior to comingfor this appointment. She reports in June of this year, she was having more trouble with her neck and upper shoulder area. Dr Corral reportedly couldnt adjust/fix her because she was ???locked up.?? He sent her for physical therapy. She received work in pool therapy and gym therapy that was both working on her increased imbalance and her neck and shoulder. She thinks things have improved since then. She has been able to go back to see Dr Corral and had gotten some more relief. She still has residual symptoms both at her sternoclavicular areaand upper shoulder and lateral shoulder. She was seen by Dr Elliott on August 03, 2008 because of this pain. His evaluation was available for review. She presently reports some pain just off the lateral aspect of her shoulder. It comes on with only certain motions for the most part, particularly with reaching forward. She also feels discomfort near her sternum. She has some expressive speech deficits and is somewhat circuitous in her history reports (please see pain assessment sheet). As far as her gait, she reports sometime in June she also seemed to have a shift to be more unstable. The therapies have helped, and she feels like she is back to her baseline. MEDICATIONS Please see updated medication list in the chart. OBJECTIVE The patient is in no acute distress. Her speech is clear, but she is a bit circuitous in describingher situation and honing in on her symptoms. Right upper body exam identifies some asymmetry in herclavicular placement with her right proximal clavicular headbeing much more prominent as compared to the left. It is tender with pressure around that joint area. Also at the AC joint, she has pain. Pain is increased when her arm is moved into an adducted, internally rotated position on the right. No problems with the left. In the seated position, her right shoulder profile is depressed as compared to the left. She has symmetrical shoulder shrugs. Neck range of motion has no marked limitations. Reflexes 2+ in her upper extremities. Strength is grade 5 in the upper extremities for proximal shoulder muscles, external rotation, forward flexion and abduction. No muscular asymmetry noted. Gait: the patient independent with standing and sit to stand activities. Walking is independent. She occasionally has some variation on her stance width but has reasonable toe clearance and reasonable foot and ankle control through the swing phase. ASSESSMENT The patient with persistent shoulder and neck symptoms that are varied in severity. She is status post a stroke in July of 2006. Dr Baugh indicates she has also had problems with headaches although she is not referring to that at the present time. The predominant abnormality I see is in asymmetrical clavicle placement. I am unclear what might be driving this. Discussed with the patient options of looking at some slings for support and occupational therapy to see if it can keep her clavicle in a better supportive position either with a figure 8 strap or a rabia sling. She is willing to consider this. Her gait at the present time appears stable enough not to require bracing intervention. I would like to review her situation with one of our orthopedic shoulder specialists to see if they feel any other evaluation would be appropriate. She apparentlyhas been scheduled for a head MRI today by Dr Jaylen Beckwith potentially on the basis of her problems with balance she was having more in the last two months. The patient is in agreement with the above plans. PLAN 1. I will request OT evaluation to look at shoulder either rabia sling supports or figure 8 straps. 2. Will get back to the patient regarding any other orthopedic evaluation. Total time spent was 30 minutes, greater than 50% direct patient discussion and education regardingmanagement of her post stroke issues. Signed by Estefani Rich MD 09/01/2008 16:49 Estefani Rich MD - Estefani Rich MD - Job ID: [id number] Doc ID: [id number] cc: MD Melodie Jarquin MD Preliminary Estefani Rich MD - Estefani Rich MD - Job ID: [id number] Doc ID: [id number] cc: MD Melodie Jarquin MD documented in this encounter Plan of Treatment Upcoming Encounters Date Type Department Care Team (Late st Contact Info) Description 02/03/2024 12:45 EDT Office Visit [facility] Ophthalmology [facility] [address] [place] [address] Goldy Guzman MD [address] [place] [address] documented as of this encounter Visit Diagnoses Not on filedocumented in this encounter Care Teams Dermatology Specialist Relationship Specialty Start Date End Date Star Vasquez MD [address] [facility] [address] PCP - General 12/02/08 09/03/12 documented as of this encounter
--- OUTSIDE RECORDS SUMMARY | 2024-01-12 02:08 | XMS_ITS | Encounter Summary ---
Author Organization [facility] Address [address] [place] [address] Care Team Providers Care Ingredient Scaler Helper Name Role Phone Star Vasquez MD Primary Care Provider [phone] Encounter Details Date Type Department Care Team (Late st Contact Info) Description 09/02/2008 Before PRISM Converted Visit (Maple) [facility] - [facility] conversion [address] [place] [address] Estefani Rich MD [address] [place] [phone] Social History Tobacco Use Types Packs/Day Years Used Date Smoking Tobacco: Never Assessed Sex and Gender Information Value Date Recorded Sex Assigned at Not on file Gender Identity Female 10/16/2020 9:54 EDT Sexual Orientation Not on file documented as of this encounter Progress Notes * Estefani Rich MD - 07/31/2009 0433 EST PHYSICAL MEDICINE / REHABILITATION INTERIM PROGRESS/FOLLOWUP NOTE - 09/15/2008 Randi was initially seen on August for neck and shoulder pain. I sent her for an evaluationfor a CT scan of the sternoclavicular joints due to asymmetry there after discussing the case clinically with Dr Andrés Gonzales. The CT scan was done on September 09, 2008 [facility]. They identified arthritic changes at the right medioclavicular joint and a small bone fragment. They are describing a suggestion of remote trauma with sclerosis. The report was reviewed by Dr Andrés Gonzales. There was no sign of dislocation or subluxation on the CT. He stated for persistent sternoclavicularpain, she could be considered for a lidocaine injection under fluoroscopy if the patient wanted to consider that. I contacted the patient on September 15, 2008 to review possible recommendations. She reports that she has seen occupational therapy as I had recommended and is working trialing a figure 8 splint to helpwith support to the area and will be seen next week for another possible splint. She did priorto the CT scan report she had an adjustment treatment with Dr Horace Corral where he applied what sounds like a traction maneuver to her right shoulder and did improve her pain through the clavicle area andthe prominence of the right sternoclavicular joint. Per her description, it sounds as though there potentially is some subluxation that is going on that he addressed. She states she still has period asymmetries at that joint since that maneuver and her pain is coming back episodically. PLAN I reviewed discussions and information to date with Dr Luis Fernando Vasquez today so that he can help her inconjunction with Dr Corral and Dr Elliott determine the next appropriate step for her in terms of adjustments with figure 8 splint stabilization or steroid injections to the sternoclavicular jointor otherwise. Dr Vasquez will be following up with the patient. We will also copy Dr Horace Corral on records to date. Signed by Estefani Rich MD 09/20/2008 13:32 Estefani Rich MD - Estefani Rich MD - Job ID: [id number] Doc ID: [id number] cc: MD Hoarce Jarquin DO A Michael Imobersteg, MD * Estefani Rich MD - 12/21/2008 3154 EDT PHYSICAL MEDICINE / REHABILITATION PROGRESS/FOLLOWUP NOTE - 09/02/2008 I evaluated Randi in the office earlier thisweek related to her neck and shoulder discomfort and with asymmetry noted on exam of her right sternoclavicular joint compared to her left and associatedpain. I discussed with her situation with Dr Andrés Gonzales. He is recommending at this time assessing the area with a CT scan of her sternoclavicular joints. Depending on the results from that study, we will determine whether she needs referral on for further orthopedic evaluation or not. I will have my office communicate with the patient to schedule thisstudy. Signed by Estefani Rich MD 09/07/2008 09:39 Estefani Rich MD - Estefani Rich MD - Job ID: [id number] Doc ID: [id number] cc: MD Andrés Oliver MD documented in this encounter Plan of Treatment Upcoming Encounters Date Type Department Care Team (Late st Contact Info) Description 02/03/2024 12:45 EDT Office Visit [facility] [address] [place] [address] Goldy Guzman MD [address] [place] [phone] documented as of this encounter Visit Diagnoses Not on filedocumented in this encounter Care Teams Ingredient Scaler Helper Relationship Specialty Start Date End Date Star Vasquez MD [address] [place] [address] PCP - General 12/02/08 09/03/12 documented as of this encounter
--- OUTSIDE RECORDS SUMMARY | 2024-01-12 02:08 | XMS_ITS | Encounter Summary ---
Author Organization [facility] Address [address] [place] [address] Care Team Providers Care Front End Mechanic Name Role Phone Star Vasquez MD Primary Care Provider Macie Guevara [facility] Primary Care Provi moisés Star Winter MD Primary Care Provider [phone] Sheela Storey APRN Primary Care Provider [phone] Encounter Details Date Type Department Care Team (Late st Contact Info) Description 08/31/2008 Before PRISM Converted Visit (Maple) [facility] - Maple conversion [address] [place] [address] Tarik Beckwith MD Social History Tobacco Use Types Packs/Day [...] Office Visit [facility] Ophthalmology [facility] [address] [place] [address] Goldy Guzman MD [address] [place] [phone] documented as of this encounter Procedures Procedure Name Priority Date/Time Associated Diagnosis Comments MR HEAD WO CONTRAST 08/31/2008 1 8:11 EST documented in this encounter Results * MR HEAD WO CONTRAST (08/31/2008 18:11 EST) Anatomical Region Laterality Modality Other 08/31/2008 18:1 1 EST Narrative 10/25/2008 3:10 EDT CVA right hemiparesis MRI BRAIN WITHOUT CONTRAST, August 31, 2008. Indications: Stroke. Right hemiparesis. Technique: Axial T2, axial T2 FLAIR, axial gradient echo, DWI, and sagittal T1 sequences were performed. Comparison: MRI head, August 09, 2006. Findings: There is hyperintense T2 signal in the posterior limb of the left internal capsule in the location of the prior infarct. On gradient echo, there is adjacent hypointense signal indicating interval hemorrhagic conversion or dystrophic calcifications. There is no restricted diffusion on DWI to suggest acute infarct. There are bilateral basal ganglia lacunar infarcts. There are scattered hyperintensities on the T2 sequences in the periventricular and subcortical deep white matter, likely representing chronic microvascular ischemic disease. The ventricles and extra-axial CSF spaces are normal for age. There is no mass effect or midline shift. Flow voids are present in all major intracranial arteries and dural venous sinuses. The orbits are free of abnormality. Impression: 1. Prior infarct in the left posterior limb of the internal capsule, with interval hemorrhagic conversion or dystrophic calcification. 2. No acute infarct. 3. Deep white matter chronic microvascular ischemic disease. 4. Old lacunar infarcts in the basal ganglia bilaterally. I have personally reviewed the images and the above interpretation and agree with the findings. Procedure Note Kalin Holley DO / Nallely Selby MD - 10/25/2008 CVA right hemiparesis MRI BRAIN WITHOUT CONTRAST, August 31, 2008. Indications: Stroke. Right hemiparesis. Technique: Axial T2, axial T2 FLAIR, axial gradient echo, DWI, and sagittal T1 sequences were performed. Comparison: MRI head, August 09, 2006. Findings: There is hyperintense T2 signal in the posterior limb of the left internal capsule in the location of the prior infarct. On gradient echo, there is adjacent hypointense signal indicating interval hemorrhagic conversion or dystrophic calcifications. There is no restricted diffusion on DWI to suggest acute infarct. There are bilateral basal ganglia lacunar infarcts. There are scattered hyperintensities on the T2 sequences in the periventricular and subcortical deep white matter, likely representing chronic microvascular ischemic disease. The ventricles and extra-axial CSF spaces are normal for age. There is no mass effect or midline shift. Flow voids are present in all major intracranial arteries and dural venous sinuses. The orbits are free of abnormality. Impression: 1. Prior infarct in the left posterior limb of the internal capsule, with interval hemorrhagic conversion or dystrophic calcification. 2. No acute infarct. 3. Deep white matter chronic microvascular ischemic disease. 4. Old lacunar infarcts in the basal ganglia bilaterally. I have personally reviewed the images and the above interpretation and agree with the findings. Tarik Beckwith MD IMG MRI ORDERABLES documented in this encounter Visit Diagnoses Not on filedocumented in this encounter Care Teams Front End Mechanic Relationship Specialty Start Date End Date Star Vasquez MD [address] [place] [address] PCP - General 12/02/08 09/03/12 Macie Guevara FNP [address] [facility] [place] [address] PCP - General 09/04/12 09/21/12 Star Winter MD [address] [place] [address] PCP - General 09/22/12 12/15/13 Sheela Storey APRN [address] [address] PCP - General 12/16/13 documented as of this encounter
--- OUTSIDE RECORDS SUMMARY | 2024-01-12 02:08 | XMS_ITS | Encounter Summary ---
Author Organization [facility] Address [address] [place] [address] Care Team Providers Care Glass Cut Off Supervisor Name Role Phone Star Vasquez MD Primary Care Provider [phone] Encounter Details Date Type Department Care Team (Late st Contact Info) Description 12/05/[address] [facility] [address] [place] [address] Darshan Monsivais PA-C [address] [place] [phone] Social History Tobacco Use Types Packs/Day Years [...] 02/03/2024 12:45 EDT Office Visit [facility] [address] [place] [address] Goldy Guzman MD [address] [place] [address] documented as of this encounter Procedures Procedure Name Priority Date/Time Associated Diagnosis Comments MR EXTREMITY SHOULDER WO CONTRAST 12/05/2008 12:10 EDT documented in this encounter Results * MR EXTREMITY SHOULDER WO CONTRAST (12/05/2008 12:10 EDT) Anatomical Region Laterality Modality Other 12/05/2008 12:1 0 EDT 12/05/2008 14:00 EDT Narrative 12/05/2008 14:00 EDT MR EXTREMITY SHOULDER W/O ??Dec 05, 2008 12:10:00 PM Clinical history: Right shoulder pain,AC joint arthritis,impingement Comparison: No prior right shoulder imaging study available for comparison at time of reporting. Technique: Routine noncontrast right shoulder MRI with thick sequences obtained on the open MRI system. Findings: The supraspinatus and adjacent anterior portion of the infraspinatus show mild to moderate changes of tendinosis. There is a small thin linear high signal focus within the posterior supraspinatus tendon at the greater tuberosity attachment (coronal image 11). The finding is consistent with a small thin intratendinous partial thickness tendon tear potentially with a pinhole tear component involving the articular surface. If clinically indicated MR arthrography could confirm or exclude articular surface involvement. The subscapularis and teres minor tendons are intact. Only minimal fatty infiltration of the rotator cuff muscles is demonstrated. There is mild fatty infiltration and atrophy of the visualized portion of the deltoid muscle. The posterior labrum appears somewhat diminutive raising the possibility of a labral tear. Correlate for clinical evidence of posterior instability and consider MR arthrography for more complete evaluation of the labral-ligamentous structures. Otherwise no labral tear is demonstrated on this nonarthrographic MR imaging exam. Long head of the biceps tendon appears intact and normally positioned. There is moderate acromioclavicular degenerative joint disease present. Inferior pointing AC joint osteophytes produce mild extrinsic mass effect on the supraspinatus myotendinous junction. Mild encroachment on the subacromial space structures by slight anterior downsloping of the acromion with minimal size anterior subacromial enthesophyte. Correlate for impingement symptoms. Mild changes of subacromial subdeltoid bursitis. Mild glenohumeral degenerative joint disease with small osteophytes and mild chondral thinning surface irregularity. Small volume of fluid within the glenohumeral axillary joint recess. Impression: 1. No full thickness rotator cuff tendon tear is identified. 2. Posterior supraspinatus tendon shows a small thin predominantly interstitial partial thickness tear at the greater tuberosity attachment. See above comments. 3.Mild to moderate supraspinatus and adjacent anterior infraspinatus tendinosis. 4. Moderate acromioclavicular degenerative joint disease. Findings, detailed above, which may be seen in association with the clinical syndrome of impingement. 5. Mild subacromial subdeltoid bursitis. 6. The posterior labrum appears somewhat diminutive raising the possibility of a labral tear in this area. ?? Particularly if the patient has symptoms of posterior instability consider MR arthrography for more complete evaluation of the labral-ligamentous structures. 7. Mild changes of glenohumeral degenerative joint disease, especially posteriorly. 8. See above for details and additional findings. Procedure Note 12/05/2008 MR EXTREMITY SHOULDER W/O Dec 05, 2008 12:10:00 PM Clinical history: Right shoulder pain,AC joint arthritis,impingement Comparison: No prior right shoulder imaging study available for comparison at time of reporting. Technique: Routine noncontrast right shoulder MRI with thick sequences obtained on the [employer] MRI system. Findings: The supraspinatus and adjacent anterior portion of the infraspinatus show mild to moderate changes of tendinosis. There is a small thin linear high signal focus within the posterior supraspinatus tendon at the greater tuberosity attachment (coronal image 11). The finding is consistent with a small thin intratendinous partial thickness tendon tear potentially with a pinhole tear component involving the articular surface. If clinically indicated MR arthrography could confirm or exclude articular surface involvement. The subscapularis and teres minor tendons are intact. Only minimal fatty infiltration of the rotator cuff muscles is demonstrated. There is mild fatty infiltration and atrophy of the visualized portion of the deltoid muscle. The posterior labrum appears somewhat diminutive raising the possibility of a labral tear. Correlate for clinical evidence of posterior instability and consider MR arthrography for more complete evaluation of the labral-ligamentous structures. Otherwise no labral tear is demonstrated on this nonarthrographic MR imaging exam. Long head of the biceps tendon appears intact and normally positioned. There is moderate acromioclavicular degenerative joint disease present. Inferior pointing AC joint osteophytes produce mild extrinsic mass effect on the supraspinatus myotendinous junction. Mild encroachment on the subacromial space structures by slight anterior downsloping of the acromion with minimal size anterior subacromial enthesophyte. Correlate for impingement symptoms. Mild changes of subacromial subdeltoid bursitis. Mild glenohumeral degenerative joint disease with small osteophytes and mild chondral thinning surface irregularity. Small volume of fluid within the glenohumeral axillary joint recess. Impression: 1. No full thickness rotator cuff tendon tear is identified. 2. Posterior supraspinatus tendon shows a small thin predominantly interstitial partial thickness tear at the greater tuberosity attachment. See above comments. 3.Mild to moderate supraspinatus and adjacent anterior infraspinatus tendinosis. 4. Moderate acromioclavicular degenerative joint disease. Findings, detailed above, which may be seen in association with the clinical syndrome of impingement. 5. Mild subacromial subdeltoid bursitis. 6. The posterior labrum appears somewhat diminutive raising the possibility of a labral tear in this area. Particularly if the patient has symptoms of posterior instability consider MR arthrography for more complete evaluation of the labral-ligamentous structures. 7. Mild changes of glenohumeral degenerative joint disease, especially posteriorly. 8. See above for details and additional findings. Darshan Monsivais PA-C IMG MRI ORDERABLES documented in this encounter Visit Diagnoses Not on filedocumented in this encounter Care Teams Glass Cut Off Supervisor Relationship Specialty Start Date End Date Satr Vasquez MD [address] [place] [phone] PCP - General 12/02/08 09/03/12 documented as of this encounter
--- OUTSIDE RECORDS SUMMARY | 2024-01-12 02:08 | XMS_ITS | Encounter Summary ---
Author Organization [facility] Address [address] [place] [address] Care Team Providers Care Telecommunication Equipment Repairer Name Role Phone Star Vasquez MD Primary Care Provider [phone] Reason for Visit * Reason Comments Skin Lesion has wart on foot sheila ing it difficult to walk--would like it removed Encounter Details Date Type Department Care Team (Late st Contact Info) Description 11/09/2009 11:30 EDT Office Visit [facility] Medicine [address] [place] [address] Star Vasquez MD [address] [place] [address] Plantar wart (Primary Dx) Social History Tobacco [...] Sign Reading Time Taken Comments Blood Pressure 122/63 11/09/2009 1201 EDT Pulse 86 11/09/2009 1201 EDT Temperature - - Respiratory Rate 18 11/09/2009 1201 EDT Oxygen Saturation - - Inhaled Oxygen Concentration - - Weight 69.3 kg (152 lb 12.8 oz) 11/09/2009 1201 EDT Height 155.6 cm (5' 1.25) 11/09/2009 1201 EDT Body Mass Index 28.64 11/09/2009 1201 EDT documented in this encounter Progress Notes * Star Vasquez MD - 11/09/2009 1217 EDT Subjective: Patient ID: Randi Oswald is an 69 y.o. female. Chief Complaint: Chief Complaint Patient presents with ??? Skin Lesion has wart on foot making it difficult to walk--would like it removed HPI Comments: I was running behind schedule. She hilda return to clinic in 2 weeks for cryotherapy ofwart on foot. Past Medical History Diagnosis Date ??? Allergy ??? Anemia ??? Anxiety ??? Cataract ??? Unspecified cerebral artery occlusion with cerebral infarction ??? Chronic kidney disease ??? GERD (gastroesophageal reflux disease) ??? Neuromuscular disorder Family History Problem Relation ??? * Mother ID 60 d 70's ??? Cancer Father ??? Cancer Maternal Aunt ??? Cancer Maternal Grandfather colon Current outpatient prescriptions Medication Sig Dispense Refill ??? losartan (COZAAR) 100 mg tablet Take 1 Tab by mouth daily. 90 Tab 2 ??? Cod Liver Oil Cap Take by mouth. ??? dipyridamole-aspirin (AGGRENOX) 200-25 mg per capsule Take 1 Cap by mouth 2 times daily. ??? simvastatin (ZOCOR) 40 mg tablet Take 40 mg by mouth daily. ??? VITAMIN B COMPLEX (B COMPLEX 50 ORAL) Take by mouth daily. ??? Calcium-Cholecalciferol, D3, (CALCIUM WITH VITAMIN D) 600-400 mg-unit Tab Take 1 Tab by mouth daily. ??? Cyanocobalamin (VITAMIN B-12) 2,000 mcg TbSR Take by mouth daily. ??? gabapentin (NEURONTIN) 300 mg capsule Take 300 mg by mouth at bedtime. ??? TRAMADOL HCL (TRAMADOL ORAL) Take by mouth as needed. To be prescribed by Dr. Corral only Allergies Allergen Reactions ??? Other - See Comments Smoke, dust History Social History ??? Marital Status: Spouse Name: N/A Number of Children: N/A ??? Years of Education: N/A Occupational History ??? Not on file. Social History Main Topics ??? Tobacco Use: Quit -- 30 years ??? Alcohol Use: Yes rare ??? Drug Use: ??? Sexually Active: Yes -- Male partner(s) Control/ Protection: Post-menopausal Other Topics Concern ??? Not on file Social History Narrative ??? No narrative on file ROS Objective: Physical Exam BP 122/63 Pulse 86 Resp 18 Ht 1.556 m (5' 1.25) Wt 69.31 kg (152 lb 12.8 oz) Assessment: Plan: defered treatment documented in this encounter Plan of Treatment Upcoming Encounters Date Type Department Care Team (Late st Contact Info) Description 02/03/2024 12:45 EDT Office Visit [facility] Ophthalmology [facility] [address] [place] [address] Goldy Guzman MD [address] [place] [address] documented as of this encounter Visit Diagnoses Diagnosis Plantar wart- Primary documented in this encounter Care Teams Telecommunication Equipment Repairer Relationship Specialty Start Date End Date Star Vasquez MD [address] [place] [address] PCP - General 12/02/08 09/03/12 documented as of this encounter
--- OUTSIDE RECORDS SUMMARY | 2024-01-12 02:08 | XMS_ITS | Encounter Summary ---
Author Organization [facility] Address [address] [place] [address] Care Team Providers Care Customer Care Consultant Name Role Phone Star Vasquez MD Primary Care Provider [phone] Reason for Visit * Reason Onset Date Comments Medications Refill 12/08/2009 Encounter Details Date Type Department Care Team (Late st Contact Info) Description 12/08/2009 Refill [facility] [address] [phone] Nallely Contreras LPN Medications Refill Social History Tobacco Use Types [...] Tab by mouth daily. 90 Tab 2 12/08/2009 12/27/2010 documented in this encounter Plan of Treatment Upcoming Encounters Date Type Department Care Team (Late st Contact Info) Description 02/03/2024 12:45 EDT Office Visit [facility] [address] [place], [place] [phone] Goldy Guzman MD [address] [place] [phone] documented as of this encounter Visit Diagnoses Not on filedocumented in this encounter Discontinued Medications Medication Sig Discontinue Reason Start Date End Da te losartan (COZAAR) 100 mg tablet Take 1 Tab by mouth daily. Reorder 10/27/2009 12/08/2009 documented as of this encounter Care Teams Customer Care Consultant Relationship Specialty Start Date End Date Star Vasquez MD [address] [place] [address] PCP - General 12/02/08 09/03/12 documented as of this encounter
--- OUTSIDE RECORDS SUMMARY | 2024-01-12 02:08 | XMS_ITS | Encounter Summary ---
Author Organization [facility] Address [address] [place] [address] Care Team Providers Care Plug Cutter Name Role Phone Star Vasquez MD Primary Care Provider [phone] Reason for Visit * Reason Onset Date Comments Medications Refill 12/05/2009 Encounter Details Date Type Department Care Team (Late st Contact Info) Description 12/05/2009 Refill [facility] Family Medicine [address] [phone] Leeanne Clements RN Medications Refill Social History [...] Tab by mouth daily. 30 Tab 5 12/05/2009 08/23/2010 documented in this encounter Plan of Treatment Upcoming Encounters Date Type Department Care Team (Late st Contact Info) Description 02/03/2024 12:45 EDT Office Visit [facility] Ophthalmology [facility] [address] [place], [place] [address] Goldy Guzman MD [address] [place] [phone] documented as of this encounter Visit Diagnoses Not on filedocumented in this encounter Discontinued Medications Medication Sig Discontinue Reason Start Date End Da te simvastatin (ZOCOR) 40 mg tablet Take 40 mg by mouth daily. Reorder 12/05/2009 documented as of this encounter Care Teams Plug Cutter Relationship Specialty Start Date End Date Star Vasquez MD [address] [place] [address] PCP - General 12/02/08 09/03/12 documented as of this encounter
--- OUTSIDE RECORDS SUMMARY | 2024-01-12 02:08 | XMS_ITS | Encounter Summary ---
Author Organization [facility] Address [address] [place] [address] Care Team Providers Care Automatic Nailing Machine Feeder Name Role Phone Star Vasquez MD Primary Care Provider [phone] Reason for Visit * Reason Onset Date Comments Verrucous Vulgaris (Warts) 10/18/2009 Encounter Details Date Type Department Care Team (Late st Contact Info) Description 10/18/[address] [place] [address] Star Vasquez MD [address] [place] [phone] Verrucous Vulgaris (Warts) Social History Tobacco Use Types Packs/Day Years [...] Telephone Encounter - Shelley Ibrahim LPN - 10/18/2009 1736 EDT Message left earlier in afternoon re: appt for her foot. * Telephone Encounter - Deanna Kim - 10/18/2009 1330 EDT Patient is getting another wart on the bottom of her foot. Luis Fernando's first opening for that is November 03.She needs it to be completed by the weekend of November 17. She doesn't really want to wait until the and wondered if another provider could get it started then finish it up with Luis Fernando. I did not knowhow to advise her but thought a nurse could. Please give her a call. documented in this encounter Plan of Treatment Upcoming Encounters Date Type Department Care Team (Late st Contact Info) Description 02/03/2024 12:45 EDT Office Visit [facility] Ophthalmology [facility] [address] [place], [place] [address] Goldy Guzman MD [address] [place] [phone] documented as of this encounter Visit Diagnoses Not on filedocumented in this encounter Care Teams Automatic Nailing Machine Feeder Relationship Specialty Start Date End Date Star Vasquez MD [address] [place] [address] PCP - General 12/02/08 09/03/12 documented as of this encounter
--- OUTSIDE RECORDS SUMMARY | 2024-01-12 02:08 | XMS_ITS | Encounter Summary ---
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 Name Role Phone Unavailable Primary Care Provider Unavailabl e Encounter Details Date Type Department Care Team (Latest Contact Info) Description 08/12/2006 17:33 EST - 08/23/2006 11:59 EST Hospital Encounter [facility] Rehabilitation Therapy Unit Level 1 [address], [place] [id number] Darnell Haines MD [address] [place] [address] [address] [place], [place] [address] Discharge Disposition: Home-Health Care Svc Social History Tobacco Use Types Packs/Day Years Used Date Smoking Tobacco: Never Assessed Sex and Gender Information Value Date Recorded Sex Assigned at Not on file Gender Identity Female 10/16/2020 9:54 EDT Sexual Orientation Not on file documented as of this encounter Discharge Summaries * Darnell Haines MD - 08/23/2006 0000 EST DISCHARGE SUMMARY Admission Date: 08/12/2006 Discharge Date: 08/23/2006 DISCHARGE DIAGNOSES 1. Status post left posterior internal capsule CVA. 2. Right hemiparesis. 3. Mild dysarthria. 4. Hypertension. 5. Chronic back pain. HOSPITAL COURSE Ms. Oswald is a 65woman with a known history of hypertension. 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 She presented internal capsule CVA as above. JASEN revealed normal ventricular function. CT angiogram showed no significant stenosis though positive aortic plaque in the arch. She was started on Aggrenox for long-term stroke prevention as well as lisinopril and atorvastatin for ongoing treatment of other stroke risk factors. in the rehab service, no acute medical issues arose. She continued to have chronic back pain issues which were managed symptomatically. Extensive patient information about stroke risk factors, nutrition, and medications took place during her hospitalization. Medicine service followed along with us to assist with those issues. REHABILITATION COURSE Ms. Oswald was making steady progress in regard to recovering mobility and self- care independence. She had continued goals for remaining on the rehabilitation service. However, her family very strongly about taking her home sooner. Therefore family training took place over several days and she was thought to be safe for discharge home with them on August 23, 2006. VNA services were set up to continue working on her mobility, strengthening, self-care and safety. Nursing will monitor her medical status over the first few days after discharge. Home health assistant professor of drama as necessary. Thiry Five minutes was spent on this discharge today. DISCHARGE MEDICATIONS 1. Atorvastatin 40 mg daily. 2. Aggrenox one capsule b.i.d. 3. Colace 100 mg b.i.d. 4. Lisinopril 10 mg daily. 5. Multivitamin with minerals daily. 6. Prilosec 20 mg daily p.r.n. 7. Robaxin 500-1000 mg q.4-6 p.r.n. Signed by Darnell Haines MD 08/29/2006 13:11 Yarely Noriega MD Darnell Haines MD - Darnell Haines MD P - Job ID: [id number] Document ID: [id number] cc: MD Tarik Sheehan MD Hillel S Panitch, MD Maria K Puglisi, FNP \* MERGEFORMAT D: - Darnell Haines MD P - Job ID: [id number] Document ID: [id number] cc: MD Tarik Sheehan MD Hillel S Panitch, MD Maria K Puglisi, FNP documented in this encounter Discharge Disposition Disposition Code Departure Means Destination Home-Health Care Svc documented in this encounter Progress Notes * Darnell Haines MD - 08/22/2006 0000 EST INPATIENT PROGRESS NOTE PT LOC: F001 Service Date: 08/22/2006 Ms. Oswald is a 65-year-old woman status post left CVA with right hemiparesis. Her questions today were lengthy as per usual. She had questions about specific medications that were absolutely requiredfor discharge versus medications that were optional. In anticipation of discharge tomorrow, greaterthan 35 minutes were spent today in reviewing all of her medications and reasonsfor those as well as medications that were not absolutely required. Case management and social work are assisting with getting clarification on payment for medications as finances are an issue for the family. Ms. Oswald reports no significant new problems today. No chest pain, shortness of breath, blurred vision or pain issues. Vital signs are stable. She is afebrile. Chest is clear. Heart regular rate and rhythm. Abdomen soft, bowel sounds positive. No calf tenderness or edema is noted. Right-sided strength deficits are noted. In summary, Ms. Oswald is a 65-year-old woman status post left CVA with right hemiparesis. She is being discharged tomorrow afternoon. Family training is being completed. As above, thirty-five minuteswere spent again today on reviewing discharge issues with the family including both her daughters and . She will complete therapy services over the next day, and I will see her in the morning prior to discharge. Signed by Darnell Haines MD 08/27/2006 11:14 Yarely Noriega MD Darnell Haines MD - Darnell Haines MD P - mt Job ID: [id number] Document ID: [id number] cc: - Darnell Haines MD P - mt Job ID: [id number] Document ID: [id number] cc: * Darnell Haines MD - 08/21/2006 0000 EST INPATIENT PROGRESS NOTE PT LOC: F001 Service Date: 08/21/2006 Ms. Oswald is a relatively young woman, status post left CVA with right hemiparesis.She has ongoing balance and self-care deficits related to her moderate hemiparesis. There has been ongoing discussion over the last week about her desire and her familys desire to take her home sooner than our initial discharge date of August 26, 2006. Multiple family members have been present and have been trained to assist Ms. Oswald with her mobility. The therapists have been very clear that they have goalsfor her to stay longer on the rehabilitation service. This has been expressed clearly to the family. Despite our discussions with them, they wish to take her home sooner than we recommend from a rehabili tation standpoint.This is not to say that they will not be able to care for her adequately, but that we could potentially continue to make good functional progress at an acute level of rehab. Ms. Oswald denies any new problems today. She reports adequate pain control. She is sleeping reasonably well, but needing an occasional sleeping pill. She denies chest pain or shortness of breath. Vital signs are stable, she is afebrile. Chest is clear, heart is regular. Abdomen soft, bowel sounds positive. No calf tenderness or significant edema is noted. Moderate right-sided weakness is noted in the upper and lower extremities. Very mild speech deficits are noted. In summary, Ms. Oswald is status post left CVA with right hemiparesis and a history of hypertension.She will complete therapies and caregiver training over the next couple of days and we will discharge her on Friday.Her daughters and have been present regularly to be trained. In anticipation of her Friday discharge, I will complete some discharge paperwork tomorrow. They have concernsabout of medications and want to minimize any medications that she does not absolutely need. At this point, in reviewing her medications, she does not appear to require anything other than her Aggrenox, atorvastatin, and lisinopril.I would potentially recommend that they stay on some sort of proton pump inhibitor for prophylaxis of her GI tract on Aggrenox, but this is not mandatory. I reviewed this with them and will review it again tomorrow and let them make their own decisions about that. Otherwise, she will continue comprehensive rehabilitation services to maximize her functional independence until her family takes her home. Signed by Darnell Haines MD 08/27/2006 11:14 Yarely Noriega MD Darnell Haines MD - Darnell Haines MD P - lr Job ID: [id number] Document ID: [id number] cc: * Darnell Haines MD - 08/20/2006 0000 EST INPATIENT PROGRESS NOTE PT LOC: F001 Service Date: 08/20/2006 Ms. Oswald is a 65-year-old woman with left CVA and hypertension. She had her and two daughters in the room with her this morning. Her family had multiple questions about her ongoing need for acute hospitalization and the theory behind some of the therapies and exercises that she has been receiving. I spent greater than half an hour with the family today educating them about what we are doing here on the rehabilitation service to make them understand the importance and logic of how we approach stroke recovery. This included discussions about task specific exercises versus motor strengthening. We also discussed the intensity of acute inpatient versus home therapy once again. Ms. Oswald denies any new complaints. No shortness of breath or chest pain is noted. She denies any visual problems. Vital signs are stable. She is afebrile. Chest is clear. Heart is regular. Abdomen soft, bowel sounds positive. No calf tenderness or edema is noted. She continues to have 3-3+/5 strength on the right side with the exception of more weakness distally in the right lower extremity. Speech is very mildly dysarthric. In summary, Ms. Oswald is a 65-year-old woman status post CVA. We will continue comprehensive strokerehabilitation services to get her at a near independent level. I will clarify with the therapists tomorrow their goalsfor keeping her at an acute level. The family is clearly pushing for an earlier discharge. Dr. Pfeiffer will be following along with us to monitor her stroke risk factors. She will continue hypertensive management, hyperlipidemia management and platelet aggregate inhibition. Signed by Darnell Haines MD 08/27/2006 11:13 Yarely Noriega MD Darnell Haines MD - Darnell Haines MD A - sc Job ID: [id number] Document ID: [id number] cc: - Darnell Haines MD A [facility] Job ID: [id number] Document ID: [id number] cc: * Darnell Haines MD - 08/19/2006 0000 EST INPATIENT PROGRESS NOTE PT LOC: F001 Service Date: 08/19/2006 Ms. Oswald is a 65-year-old status post left CVA with right hemiparesis and mild dysarthria. She hadquestions again this morning about need for acute rehabilitation management. Apparently one of her daughters has been trying to convince her that she should go home sooner with Home Health A total of25 minutes was spent with Ms. Oswald today reviewing the goals of acute rehabilitation and short term and detention outcomes associated with acute inpatient rehab versus Home Health Services at a muchless intense level. I reviewed with Ms. Oswald that she is clearly a competent woman and though I know her daughter is looking out for her best interests, she needs to explain to her daughter that shedesires to be on the acute unit and that we will continue her stay until our recommended discharge of 2006. Ms. Oswald reports continued mild word-finding difficulties. She continues to recognize right-sided weakness issues. She denies chest pain, shortness of breath, blurred vision or headache. Vital signs are stable, she is afebrile. Chest is clear. Heart is regular. Abdomen is soft, bowel sounds are positive. calf tenderness or significant edema is noted in the lower extremities. Perhaps trace swelling is noted of the right hand. No tenderness is noted. Neurologically, she continues to have about 3-3+/5 strength on the right side.Her speech is mildly dysarthric but very understandable. In summary, Ms. Oswald is a 65-year-old status post left CVA with right hemiparesis. She will remainon the acute rehabilitation service through August 26, 2006. As above, minutes was spent today reviewing the goals of acute inpatient rehabilitation versus Home Health Services. Dr. Pfeiffer will be fo llowing along to continue monitoring multiple stroke risk factors. Ms. Oswald continue on lisinoprilfor blood pressure management, Aggrenox for platelet aggregate inhibition, heparin for DVT prophylaxisand atorvastatin for management of dyslipidemia. Comprehensive therapy services will continue to maximize her safety with mobility and self-care. Signed by Darnell Haines MD 08/20/2006 11:45 Yarely Noriega MD Darnell Haines MD - Darnell Haines MD A - re Job ID: [id number] Document ID: [id number] cc: * Major Chowdhury MD - 08/18/2006 0000 EST INPATIENT PROGRESS NOTE PT LOC: F001 Service Date: 08/18/2006 Randi is the 65woman with left middle cerebral artery infarct and right hemiparesis. She has several family members present today. Their main issue today is that they have no health insurance. Theyare very concerned with the bill that they will receive from [facility] and were hoping in every way possible to keep the length of stay short. I had a lengthy discussion with them regarding this issue. Our primary PT, Eryn, is working verydiligently on trying to pull together equipment needs MAURY. The patient denies any pain today. She does feel somewhat fatigued. I had a discussion with her regarding poststroke fatigability. Her Becerril catheter is out. At the time I saw her in the morning, she had not yet voided. She took trazodone last night for sleep and felt that it worked well. The Ambien has been discontinued. There have been no additional safety problems with her. [email or web address] has seen her and reports that we need to continue to encourage her. I have ordered a brace clinic evaluation MAURY. We are likely going to get her in an articulated AFO. Her vital signs are stable. She is afebrile. Her chest was clear to auscultation. Tongue was midline. She has mild right central seventh. Cardiac exam showed a regular rate and rhythm. Abdominal exam showed active bowel sounds. Neurologic exam showed moderate dysarthria, occasional word-finding difficulty, and classic right hemiparesis. She was discussed in detail today in team conference. I refer to her team conference note. Discharge date is set for August 26, 2006. Forty minutes was spent on her case today, with greater than 50% on care coordination and counseling. Signed by Major Chowdhury MD 08/20/2006 08:45 Richard Morales MD Major Chowdhury MD - Nic Chowdhury MD P - ck Job ID: [id number] Document ID: [id number] cc: * Sarah Mcfarland, PT - 08/16/2006 0000 EST INPATIENT PROGRESS NOTE PT LOC: F001 Service Date: 08/16/2006 SUBJECTIVE: Randi is complaining of some right periscapular pain that came on acutely today when she was using her right upper extremity. She states she has never had a problem in this area before. PHYSICAL EXAMINATION: Temperature 35.9, pulse 72, respirations 16, blood pressure is 138/69Lungs are clear to auscultation posteriorly. CVS is regular rate and rhythm. Abdomen is soft and nontender with normoactive bowel sounds. Extremities are warm and dry. There is no swelling, discoloration, or rashes. She is easily antigravity in all muscles in her upper and lower extremities on the right side, although there is some obvious weakness. There is some mild tenderness to palpation just medial to the scapula in one particular area. IMPRESSION: A 65-year-old status post left CVA with right hemiparesis which is dramatically. Her major complaint today, besides the obvious weakness, is the periscapular pain, and at this point I am recommending an ice pack to the area and, hopefully, that will improve with time. Otherwise, continue with current rehab regimen, since she seems to be doing quite well. Signed by Sarah Mcfarland MD 08/18/2006 09:24 Kasey Leon MD Sarah Mcfarland MD - Annemarie Mcfarland MD P - lr Job ID: [id number] Document ID: [id number] cc: * Darnell Haines MD - 08/15/2006 0000 EST INPATIENT PROGRESS NOTE PT LOC: F001 Service Date: 08/16/2006 Ms. Oswald is a 65-year-old with left CVA and right hemiparesis. She also has mild speech deficits. She continues to report some anxiousness about risk for repeat CVA. Approximately 25 minutes was again today reviewing stroke risk factors and minimization of those. Greater than half of my time spentwith her this morning was in direct patient contact on counseling issues. She reports no chest pain or shortness of breath. No diplopia is noted. No specific pain issues were reported. Vital signs are stable, she is afebrile. Chest is clear. Heart is regular. Abdomen is soft, bowel sounds are positive. No calf tenderness or edema is noted in the lower extremities. Perhaps trace swelling of the right hand is noted. No tenderness in the hand is noted. Neurologically, she has very subtle dysarthric speech. She has slow movements of the right upper and lower extremity with strengthabout a 3+/5. In summary, Ms. Oswald is a 65-year-old status post left CVA with right hemiparesis. She continues to have some anxiety issues about her stroke risk factors. Dr. Pfeiffer will be working with us to address her stroke risk factors and minimize them. In that regard, she continues on atorvastatin for dysli pidemia, lisinopril for hypertension, and Aggrenox for platelet aggregate inhibition. will continueworking with Ms. Oswald her family to clarify discharge issues throughout the remainder of her stay.Estimated length of stay is the end of July. Signed by Darnell Haines MD 08/20/2006 11:45 Yarely Noriega MD Darnell Haines MD - Darnell Haines MD A - re Job ID: [id number] Document ID: [id number] cc: ADDENDUM TO INPATIENT PROGRESS NOTE - CORRECT DATE OF SERVICE: 08/15/06 Signed by Darnell Haines MD 09/04/2006 15:01 Yarely Noriega MD Darnell Haines MD D: - Darnell Haines MD A - djb Job ID: Document ID: [id number] * Darnell Haines MD - 08/14/2006 0000 EST INPATIENT PROGRESS NOTE PT LOC: F001 Service Date: 08/14/2006 Ms. Oswald is a 65woman status post left CVA with moderate to severe right hemiparesis and subtle speech deficits. Ms. Oswald reports sleeping a bit better last night with use of a sleeping pill. I spent time with her and her today reviewing risk for recurrent stroke. We discussed minimization of stroke risk factors including hypertension, hyperlipidemia and stress. We discussed appropriatediet. Thirty-five minutes were spent on reviewing these issues with and Mrs. Oswald today. Greater than halfof this time was in counseling. Ms. Oswald denies any blurry vision, chest pain or shortness of breath. She denies any pain complaints. She is urinating and moving her bowels. Vital signs are stable. She is afebrile. Chest is clear. Heart is regular. Abdomen soft, bowel sounds positive. No calf tenderness or significant edema is noted. Neurologic exam reveals right-side weakness with 3/5 strength compared to 5/5 on the left. She has very subtle dysarthria. No obvious word finding difficulties are noted. In summary, Ms. Oswald is a 65woman with new CVA. She has had TIAs inthe past and apparently has notsought care for those. Significant counseling time was utilized today to review these issues with her. As discussed, 35 minutes were spent. She will continue comprehensive stroke rehabilitation services including PT, OTand speech for her mobility, self-care and speech deficits. Dr. Pfeiffer will be following along with us to assist with monitoring of multiple stroke risk factors. Signed by Darnell Haines MD 08/18/2006 08:44 Yarely Noriega MD Darnell Haines MD - Nivia Haines MD P - mt Job ID: [id number] Document ID: [id number] cc: * Darnell Haines MD - 08/13/2006 0000 EST INPATIENT PROGRESS NOTE PT LOC: F001 Service Date: 08/13/2006 Ms. Oswald is a 65woman status post left CVA with right hemiparesis. She was admitted to the rehabilitation service yesterday due to mobility and self-care deficits related to significant right-sided weakness. She also presents with slight speech deficits. She reports having a restless night overnight. She has Ambien ordered p.r.n., which she did not take last night. She denies any specific pain complaints this morning. Vital signs are stable. She is afebrile. Chest is clear to auscultation bilaterally. Heart regular rate and rhythm. Abdomen soft, bowel sounds positive. She has no calf tenderness or edema in the lower extremities. Neurologically, she continues to have very subtle speech deficits with right-sided hemiparesis, strength no greater than 3/5 throughout on the right. In summary, Ms. Oswald is starting her first full day on the rehabilitation service. Comprehensive evaluations by PT and OT as well as speech and language pathology will begin today for treatment of her mobility, self-care and language deficits. Laboratory values were reviewed today. All labs were in the normal range. Dr. Pfeiffer will be consulted to assist with monitoring of stroke risk factors andminimization of those. Heparin continues for DVT and stroke prophylaxis. Lisinopril continues for hypertension and atorvastatin continues for dyslipidemia. Aggrenox also continues for stroke prophylaxis. Signed by Darnell Haines MD 08/18/2006 08:44 Yarely Noriega MD Darnell Haines MD - Nivia Haines MD A - mt Job ID: [id number] Document ID: [id number] cc: documented in this encounter H&P Notes * Darnell Haines MD - 08/12/2006 0000 EST HISTORY AND PHYSICAL EXAMINATION PT LOC: [id number] Admission Date: 08/12/2006 REASON FOR ADMISSION: Status post left posterior internal capsule cerebrovascular accident with right hemiparesis and mild speech deficits. HISTORY OF PRESENT ILLNESS: Ms. Oswald is a right-handed woman who was admitted from [facility] with right-sided weakness complaints and slurred speech. CT scan at the outside hospital revealed no evidence of CT angiogram at [facility] reported aortic arch plaque with no significant stenosis of her neck or intracranial vessels. MRI of the head showed left subcortical CVA, involving the posterior limbof the internal capsule. cardiac study revealed overall normal left ventricular function. No evidence of wall abnormalities. Mild atheroma noted in the ascending aorta. There was moderately extensiveatheroma in the aortic arch and moderately extensive atheroma in the descending aorta. Left atrium was caar-bb-dmblqsyxop dilated. Left atrium was normal. She has been started on heparin for stroke prophylaxis and was started on Aggrenox for long-term stroke prevention. Lisinopril and atorvastatin were also added for treatment of other stroke risk factors. Her right-sided weakness was slowly improving and after evaluations by PT, OT, and speech, was thought to be appropriate for acute inpatient rehabilitation services for her significant gait abnormality, self-care deficits, and mild speech issues. PAST MEDICAL HISTORY: Significant for hypertension and chronic back pain. ALLERGIES: She has no known drug allergies. ADMISSION MEDICATIONS 1. Aggrenox 1 p.o. daily. 2. Aspirin 325 mg daily 3. Atorvastatin 40 mg daily. 4. Colace 100 mg b.i.d. 5. Heparin subcu 5000 units q.12. 6. Pantoprazole 40 mg daily. 7. Multivitamin with minerals 1 p.o. daily. 8. Lisinopril 10 mg daily. SOCIAL HISTORY: She lives with her in a one-level home with one step to enter. She has 3 daughters, 1 son, and 20 grandchildren. She reports occasional alcohol and reports a remote tobaccoism. FAMILY HISTORY: Noncontributory to this admission. REVIEW OF SYSTEMS: Constitutionally, she denies any pain currently. Eyes: She reports some diplopiathis admission. She has had cataract surgery in the past. Ears, nose, mouth, and throat: She reports mild dysarthria. Denies any sinus, swallowing, or hearing problems. Cardiovascular: History of hypertension. Denies any chest pain currently. Respiratory: Denies any shortness of breath. Remote history of pneumonia. Gastrointestinal: She reports no bowel movements since admission. Genitourinary: She has a Becerril catheter in place currently. Kidney stone in the past. Musculoskeletal: History of arthritis in the toes, knees, hands, and shoulders. Skin: She denies any chronic problems. Neurologic history as above.Psychiatric history: Denies any mood problems or depression. Endocrine: Denies diabetes or thyroid problems. Hematologic: Denies any bleeding or clotting tendencies. Allergies: Denies. PHYSICAL EXAMINATION: Generally, Ms. Oswald was very pleasant and cooperative. Her speech was slightly dysarthric, but easily understandable. No obvious word- finding problems were noted. has a mild right facial droop. Her extraocular muscles were intact. Tongue protrudes midline. Palate elevates symmetrically. Moist mucosal membranes. Neck was supple. Chest was clear to auscultation bilaterally throughout. Heartregular rate and rhythm. Abdomen soft, bowel sounds positive. No tenderness is noted.Extremity exam reveals no clubbing, cyanosis, or edema. She has good dorsal pedal pulses bilaterally. Neurologic exam reveals slight asymmetry of face. Speech deficits as mentioned above. Motor exam reveals less than 3/5 strength in the shoulder. She has 3/5 in the biceps and triceps of one repetition. She has antigravity wrist extension and fair racehorse trainer strength. She was able to lift up lower extremities off the bed using her adductors, but not hip flexors. She had antigravity knee extension. She had no active dorsiflexion. Sensory exam revealed no deficits. Nextinction or neglect was noted. She had intact proprioception distally. Deep tendon reflexes were hyperreactive on the right. ASSESSMENT: summary, Ms. Oswald is a 65-year-old woman with left CVA and right hemiparesis with moderate strength deficits, mobility impairment,and self-care impairment as well. She is being admitted to the rehabilitation service for her gait abnormalities and self-care deficits in order to maximizefunctional recovery. She also will be getting monitored for her stroke risk factors, including hypertensive control and management of dyslipidemia. Monitoring of constipation and stroke-related neurogenic bladder will also continue. RECOMMENDATIONS 1. Full evaluations by PT and OT services for mobility and self-care deficits. 2. Continuation of Becerril catheterization until mobility improves and then further evaluation of bladder issues. 3. Work on post-stroke constipation issues with medications as necessary. 4. Continue management of hypertension with lisinopril. 5. Continue platelet aggregate inhibition with Aggrenox. Continue heparin as well for anticoagulation. 6. GI prophylaxis with pantoprazole. 7. Dr. Pfeiffer will be consulted to follow Ms. Pineda stroke risk factors with us to minimize those and prevent recurrence of her CVA. Signed by Darnell Haines MD 08/13/2006 09:25 Yarely Noriega MD Darnell Haines MD - Nivai Haines MD P - ck Job ID: [id number] Document ID: [id number] cc: MD Gonzalo Webber MD documented in this encounter Consult Notes * Colleen Noriega MD - 08/19/2006 0000 EST INPATIENT CONSULTATION PT LOC: [id number] Admission Date: 08/12/2006 Date of consultation: 08/19/2006 REASON FOR CONSULTATION: Requested by Dr. Haines and Dr. Chowdhury to see this 65-year-old woman recovering from stroke on acute inpatient rehab regarding ongoing management of hypertension, dyslipidemia and her recent stroke. HISTORY OF PRESENT ILLNESS: The patient is a 65-year-old woman who presented to [facility] with complaints of right arm weaknessand slurred speech. She had a CT of her head with CT angiogram. A CT angiogram was repeated at [facility], showing aortic arch plaque, with no stenoses of her neck or intracranial arteries. She also had a brain MRI, which showed left subcortical stroke, with involvement of the posterior limb of the internal capsule. Her right arm weakness and slurred speech improved quickly. She was thought to be a good candidate for acute rehab placement, where she was transferred on August 12, 2006. The patient had an antecedent history of borderline hypertension, so she was started on lisinopril 10 mg daily. She was also placed on Lipitor 40 mg daily for dyslipidemia. Her stroke was presumably related to her aortic arch plaque or small vessel disease. 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 The patient was started on Aggrenox for long-term stroke prevention, as well as subcutaneous prophylactic heparin. Today, she has noted excessive sedation following 100 mg of trazodone at bedtime. Given her difficulty with gait abnormality, PT, OT, and speech needs, she was transferred to acute inpatient rehab for further rehabilitative efforts. PAST MEDICAL HISTORY: She had been told she had borderline hypertension which had not required medications in the past. Also had chronic back pain. MEDICATIONS: The only medications prior to admission were lysine for cold sores, as well as calciumsupplements. ALLERGIES: No known drug allergies. CURRENT MEDICATIONS 1. Aggrenox 1 capsule b.i.d. 2. Atorvastatin 40 mg daily. 3. Heparin 5000 units subcu q.12. 4. Lisinopril 10 mg p.o. daily. 5. Robaxin 500-1000 mg q.4 h. p.r.n. 6. Multiple vitamin daily. 7. Protonix 40 mg daily. 8. Trazodone 50-100 mg at bedtime p.r.n. SOCIAL HISTORY: and has 7 children. She has several children who live nearby. Quit smoking about 30 years ago. Drinks alcohol occasionally. FAMILY HISTORY: Noncontributory. REVIEW OF SYSTEMS: Denies pain. She feels groggy today, following the sleeping medication. Does note some double vision with left lateral gaze. Has mild cataracts. Still has some difficulty with speech. No swallowing or hearing difficulty. No palpitations. No shortness of breath. Nosmoking for 30 years. Remote history of pneumonia. GI: Some constipation. : Becerril removed. History of kidney stone. Musculoskeletal: Some back pain with osteoarthritis. Neurologic: As per HPI. Psych: Negative. Heme: Negative for blood clotting or bleeding issues. Endocrine: Dyslipidemia, no diabetes or thyroid. PHYSICAL EXAMINATION: In general, pleasant woman, who appears in no acutedistress, seen seated in bed. Her blood pressure to my examination was 120/74, pulse 72 and regular. Her speech is minimally dysarthric but readily comprehensible. Her eye contact is good. No word-finding problems. Minimal right facial droop. Her EOMs areintact. She does note blurry vision with left lateral gaze. Tongue midline. Palate elevates. Moist mucous membranes. No lymphadenopathy. No thyromegaly. Lungs clear. Cardiac exam: Regular rate and rhythm. Normal S1 and S2. No murmur, rub, or gallop. Abdomen slightly obese, soft, nontender. Somewhat hypoactive bowel sounds, with no masses or organomegaly. Extremities negative for clubbing, cyanosis, or edema. She has palpable pedal pulses bilaterally. Screening neurologic exam shows significant weakness ofher right upper extremity, greater than lower extremity, although she is able to flex and extend her upper extremity, which is new today. Hyperactivity of DTRs on right. LABORATORY: Lipid profile on August 09, 2006: Total cholesterol 195, [id number], HDL cholesterol 46, and LDL cholesterol 127. Hemoglobin A1c 5.5. BUN 17, creatinine 0.5. Sodium 143. WBC 7.11, hematocrit 35, platelets 243,000. Most recent glucose 104. B12is 337. RPR nonreactive. TSH on August 09 was 2.3. Normal thyroid cascade. ASSESSMENT/RECOMMENDATION: A 65-year-old woman, with left CVA and right hemiparesis, with impairments as noted above. Medical issues include: 1. Hypertension: Currently systolic blood pressure well controlled on lisinopril 10 mg daily. If she requiresadditional antihypertensive therapy, could increase lisinopril to 10 mg b.i.d. Would splither dose, given her recent stroke and potential risk for orthostatic hypotension. Could convert to once daily dosage, if she tolerated a split dosage for several days. 2. Dyslipidemia: Agree with atorvastatin 40 mg daily, with a goal LDL cholesterol in the 70-80 range. Repeat lipid profile in approximately three weeks with LFTs. 3. Status post CVA: On Aggrenox, statin and blood pressure control for prophylaxis. 4. DVT prophylaxis: Agree with heparin until mobility improved. 5. Morning grogginess: Discussed in detail with the patient and her what has seemed to helpand not help with sleeping medications. Will discontinue trazodone and try a reduced dose ofAmbien,i.e. 2.5 mg at bedtime, since they felt she was functioning better on the Ambien. If this is not helpful, could try a reduced dose of trazodone, i.e. 25 mg at bedtime for insomnia as an alternative. Thank you for consultation. Signed by Colleen Noriega MD 08/30/2006 12:28 Siena Arevalo MD Colleen Noriega MD - Colleen Noriega MD P - CK Job ID: [id number] Document ID: [id number] cc: MD Gonzalo Lockhart MD Document ID: [id number] cc: MD Gonzalo Lockhart MD documented in this encounter Plan of Treatment Upcoming Encounters Date Type Department Care Team (Late st Contact Info) Description 02/03/2024 12:45 EDT Office Visit [facility] Ophthalmology [facility] [address] [place] [address] Goldy Guzman MD [address] [place] [phone] documented as of this encounter Procedures Procedure Name Priority Date/Time Associated Diagnosis Comments COMPLETE BLOOD COUNT Routine 08/13/2006 6:40 EST BUN Routine 08/13/2006 6:40 EST CREATININE Routine 08/13/2006 6:40 EST ELECTROLYTES Routine 08/13/2006 6:40 EST documented in this encounter Results * ELECTROLYTES (08/13/2006 6:40 EST) Sodium 143 136 - 145 mEq/L [facility] Potassium 3.5 3.5 - 5.0 mEq/L [facility] Chloride 106 96 - 110 mEq/L [facility] CO2 29 24 - 32 mEq/L [facility] Comment:Performed at [place], [place] 08/13/2006 6:40 EST 08/13/2006 7:13 EST Darnell Haines MD CHEMISTRY & BLOOD GAS ORDERABLES Performing Organization Address City/[facility] Co de Phone Number [facility] [address] [place] [address] * (ABNORMAL) CREATININE (08/13/2006 6:40 EST) Pathologist [facility] Creatinine 0.50(L) 0.7 - 1.5 mg/dl [facility] GFR, Calculated >60 ml/min/1.7 3m2 [facility] Comment:Performed at [place], [place] 08/13/2006 6:40 EST 08/13/2006 7:13 EST Darnell Haines MD CHEMISTRY & BLOOD GAS ORDERABLES [facility] [address] [place] [address] * (ABNORMAL) HEMAGRAM (08/13/2006 6:40 EST) WBC 7.11 4.0 - 12.4 K/cmm [facility] RBC 4.16 3.86 - 5.04 M/cmm [facility] Hemoglobin 12.6 11.6 - 15.2 gm/dl [facility] HCT 35.2 34.9 - 44.4 % [facility] MCV 85 81 - 98 fl [facility] MCH 30.4 26.7 - 33.3 pg [facility] MCHC 35.9 32.1 - 35.9 gm/dl [facility] PLT 243 141 - 320 K/cmm [facility] RDW-CV 11.3(L) 11.7 - 14.6 % [facility] Comment:Performed at [facility], [place], [place] 08/13/2006 6:40 EST 08/13/2006 7:13 EST Darnell Haines MD HEMATOLOGY & PF4 ORDERABLES Performing Organization Address [facility] Co de Phone Number [facility] [address] [place] [address] * BUN (08/13/2006 6:40 EST) BUN 17 10 - 26 mg/dl [facility] Comment:Performed at [place], [place] 08/13/2006 6:40 EST 08/13/2006 7:13 EST Darnell Haines MD CHEMISTRY & BLOOD GAS ORDERABLES Performing Organization Address City/[facility] Co de Phone Number [facility] [address] [place] [address] documented in this encounter Visit Diagnoses Not on filedocumented in this encounter
--- OUTSIDE RECORDS SUMMARY | 2024-01-12 02:08 | XMS_ITS | Encounter Summary ---
Author Organization [facility] Address [address] [place] [address] Care Team Providers Care Qualitative Executive Researcher Name Role Phone Star Vasquez MD Primary Care Provider [phone] Encounter Details Date Type Department Care Team (Late st Contact Info) Description 03/24/2008 Before PRISM Converted Visit (Maple) [facility] - Maple conversion [address] [place] [address] Yessenia Gan, KIMBERLY [address] [facility] [place], [place] [address] Social History Tobacco Use Types Packs/Day Years Used Date Smoking Tobacco: Never Assessed Sex and Gender Information Value Date Recorded Sex Assigned at Not on file Gender Identity Female 10/16/2020 9:54 EDT Sexual Orientation Not on file documented as of this encounter Progress Notes * Yessenia Gan MD - 01/21/2009 1330 EDT [facility] PROGRESS/FOLLOWUP NOTE - 03/24/2008 EYAD Bryan comes in here ostensibly for a sore throat that started yesterday, but basically she is really here because she wants more pain medications. She has been getting tramadol for this last year, getting 60 of them and having a couple of refills. She has had what looks like three refills writtenin our medication log, one on 06/18/2007, 60 with three refills; once in November, 60 plus two refills;it looks like 02/26/2008 she had 60 plus a couple refills. She is quite confused about that, and does not feel that she has had that. A note written in the chart does not address that she is getting refills. The last refill that was picked up was 02/07/2008 as far as we could tell, and she had probably another one that she could refill. She tells me that she is taking the tramadol most days, occasionally she will take two. She also admits that her may have taken some of her medication aswell. She is not sure how much. She is complaining of right shoulder pain particularly, although there is no particular issue that we really know about causing the pain. She refers to her stroke where she had right-sided weakness. She swims once a week. She doesother household tasks and at least onone occasion she worked for several hours outside in the garden. She tells me that the ibuprofen that she has tried does not really help her much, but might help if she is not in very much pain. She sees Dr. Ring, an osteopath, every two or three weeks for manipulation which she says helps her with her shoulder and helps her with her back. She is actually really here concerned about getting her regular tramadol like she has been getting it all along. Also, after some conversation she admits tohaving issues going on at home and stressors and she told me that she has probably dealt with one, but then she has another one, and she does appear to be somewhat overwhelmed by this and she also appears to be somewhat confused in the office. OBJECTIVE Blood pressure 142/80, pulse 72, temperature 97.7. Right shoulder not examined. ASSESSMENT I think she has depression and anxiety that is exacerbating whatever discomfort that she has, and she is somewhat confused today. PLAN I have given her prescription for tramadol 50 mg, just 10 of them with no refill. I want her to come back here in two weeks to see where she is in terms of her pain control and where she is in terms of her mood, as I am starting her on some citalopram 20mg, once daily. have given her 30. She will start with a half tablet for a week and then increase to a whole. We actually did not address her sore throat. That was forgotten about during the visit, which was extensive. She was here for 45 minutes and it was all in counseling. Signed by KIMBERLY Blanco 03/30/2008 15:31 KIMBERLY Blanco - KIMBERLY Blanco P - LORENZO Job ID: [id number] Document ID: [id number] cc: Job ID: [id number] Document ID: [id number] cc: documented in this encounter Plan of Treatment Upcoming Encounters Date Type Department Care Team (Late st Contact Info) Description 02/03/2024 12:45 EDT Office Visit [facility] Ophthalmology [facility] [address] [place], [place] [id number] Goldy Guzman MD [address] [place] [phone] documented as of this encounter Visit Diagnoses Not on filedocumented in this encounter Care Teams Qualitative Executive Researcher Relationship Specialty Start Date End Date Star Vasquez MD [address] [place] [phone] PCP - General 12/02/08 09/03/12 documented as of this encounter
--- OUTSIDE RECORDS SUMMARY | 2024-01-12 02:08 | XMS_ITS | Encounter Summary ---
Author Organization [facility] Address [address] [place] [address] Care Team Providers Care Compressed Gas Equipment Mechanic Name Role Phone Star Vasquez MD Primary Care Provider [phone] Encounter Details Date Type Department Care Team (Late st Contact Info) Description 09/10/2006 Before PRISM Converted Visit (Maple) [facility] - Maple conversion [address] [place] [address] Kristina Pritchard MD [address] [place] [phone] Social History Tobacco Use Types Packs/Day Years Used Date Smoking Tobacco: Never Assessed Sex and Gender Information Value Date Recorded Sex Assigned at Not on file Gender Identity Female 10/16/2020 9:54 EDT Sexual Orientation Not on file documented as of this encounter Progress Notes * Anirudh, Conv Energy Director - 05/02/[address] [facility] PROGRESS/FOLLOWUP NOTE - 09/10/2006 EYAD Bryan is here for followup from her hospitalization and rehab stay after a CVA. She had a left posinternal capsule CVA in July 2006. 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 She seems to be continuing to gain improvement on a daily basis. She got home from rehab week or so ago. Has a family friend who is a physical therapist, so she has been working on exercises with her. She has a brace on the right lower extremity, which is notcustom fit. Apparently, they are waiting to see her maximal gain before doing a custom fit orthotic. She would like to consider going back to [facility] to get this doneShe had anepisode about a week ago, when she describes some chest heaviness. Also describes a ???thick throat.?? Did not have any dyspnea associated with it. The patient thought it may be related to the muscle relaxants that she had been using for her shoulder. She also complains of some left-sided shoulderpain, which is improving. It certainly is exacerbated by her use of the walker. She hopes to be going to a cane soon, so again things could worsen. She is currently using just Tylenol on a p.r.n. basis. Her hyperwas addressed when she had the stroke, and is now on Lipitor 40 mg daily. LDL in the middle of last year was 136, triglycerides were 170. She has also been started on lisinopril for her elevated blood pressure. Today, her blood pressure her is 98/60, so I am concerned this may have also played a part in her symptoms last week. PHYSICAL EXAM Blood pressure 98/60. Pulse is 80. In general, she is walking with a walker. Does have some decreased strength on the right compared to the left in the upper and lower extremities. Extraocularmovements are intact, but the patient complains of blurry vision at the lateral extremes. Heart: Regular S1, S2 without murmur. Her lungs are completely clear to auscultation. Extremities are nonedematous. Shoulder ROM is normal. ASSESSMENT 1. Status post cerebral vascular accident of the left internal capsule. PLAN 1. Will continue on her current medications, but decrease her lisinopril to 5 mg a day. Hopefully to lessen the possibility of her falling. 2. Also make a referral back to [facility] to see if they can work on the right lower extremity brace for her. 3. Continue with physical therapy at home. 2. Episode of chest heaviness. Given her extensive atheromatous disease of the arch. I am concernedabout a cardiac etiology. PLAN Will get a Persantine Sestamibi Stress Test. 3. Hyperlipidemia. PLAN 1. Continue on the Lipitor. 2. Will check a fasting lipid panel, comprehensive metabolic profile at her convenience within the next month or two. 4. Hypertension with blood pressure low, as noted above. PLAN Change in lisinopril, as previously discussed. 5. Left-sided shoulder pain. Does seem to be improving. PLAN 1. Explained she could use ibuprofen on an occasional basis to try and improve it further. 2. I will plan to see her back based on the results of the above. 43 minutes spent with this patient and her , greater that 50% of the time in counseling. Signed by Kristina Pritchard MD 09/14/2006 12:41 Yanci Camarillo MD Kristina Pritchard MD P Job ID Melodie/lisette Doc ID [id number] cc: Dictated By: Kristina Pritchard MD \* MERGEFORMAT Kristina Pritchard MD P Job ID [id number] A/lisette Doc ID [id number] cc: documented in this encounter Plan of Treatment Upcoming Encounters Date Type Department Care Team (Late st Contact Info) Description 02/03/2024 12:45 EDT Office Visit [facility] Ophthalmology [facility] [address] [place] [address] Goldy Guzman MD [address] [place] [phone] documented as of this encounter Visit Diagnoses Not on filedocumented in this encounter Care Teams Compressed Gas Equipment Mechanic Relationship Specialty Start Date End Date Star Vasquez MD [address] [place] [phone] PCP - General 12/02/08 09/03/12 documented as of this encounter
--- OUTSIDE RECORDS SUMMARY | 2024-01-12 02:08 | XMS_ITS | Encounter Summary ---
Author Organization [facility] Address [address] [place] [address] Care Team Providers Care Card Room Manager Name Role Phone Star Vasquez MD Primary Care Provider [phone] Encounter Details Date Type Department Care Team (Late st Contact Info) Description 07/21/2008 Before PRISM Converted Visit (Maple) [facility] - Maple conversion [address] [place] [address] Star Vasquez MD [address] [place] [address] Social History Tobacco Use Types Packs/Day Years Used Date Smoking Tobacco: Never Assessed Sex and Gender Information Value Date Recorded Sex Assigned at Not on file Gender Identity Female 10/16/2020 9:54 EDT Sexual Orientation Not on file documented as of this encounter Progress Notes * Star Vasquez MD, MD - 01/21/2009 0624 EDT [facility] PROGRESS/FOLLOWUP NOTE - 07/21/2008 CHIEF COMPLAINT Multiple medical issues. HISTORY OF PRESENT ILLNESS 1. 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 She has had right-sided weakness and gait problems since then. She describes some difficulty with her right leg ???catching?? when trying to lift her leg forward while walking. This seemed to resolve around May 2008. Subsequently, in the past three to four weeks she has had what she describes as balance problems. She is walking into doorways or schmid periodically. She denies any room-spinning sensations. Her balance problems are not exacerbated by movements of the head, sitting up, or lying down . She denies any significant nausea, vomiting, headaches. She does have some blurry vision when trying to read, but this is resolved with a magnifying glass. She did have a recent ophthalmologic evaluation, which noted no problems with her eyes and no new prescriptions needed. She denies any changein her motor strength or any recent sensory changes. 2. Mood disorder NOS. She has been treated in the past for anxiety. She has had a ???crisis?? in her family since last summer, which she feels will not be going away anytime soon (see social historybelow). She is also stressed by the terminal braincancer of a close friend. Last fall she was started on citalopram and noted significant improvement in her anxiety within a few days. She does wonderif the citalopram may be causing her dysequilibrium problems, and she believes that she read that this was a side effect some place. She denies any significant depression at this time. 3. Shoulder pain. She has some right-sided shoulder pain, which has been treated recently with osteopathic manipulation by Dr Horace Gomez. However, he felt that he needed to stop manipulation until her dysequilibrium problem was further evaluated. She states that her shoulder pain started after herstroke when she was using a walker and a wheelchair on a regular basis. She has started physical therapy for both her shoulder pain and her dysequilibrium, ordered by Dr Gomez. She has done one land session and has a pool session scheduled for later today. REVIEW OF SYSTEMS See HPI. PAST MEDICAL HISTORY Reviewed, see problem list in chart. SOCIAL HISTORY She is part of a devoutly yazidism denominational/community, which follows scripture very closely. She believes very strongly in heaven and hell. She is very scared for the salvation of her daughtersoul. Apparently, her daughter has seven children, who recently stopped attending the denominational school and haverecently starting attending the local public school systems. Randi is concerned about the effect that this will have on her grandchildren. She is also very concerned because her daughter has started attending a [employer] denominational -Randi is worried that her daughter will not be able to go to heaven(or worse, might even go to hell) because she is attending a Baptist denominational rather than the scripture denominational in which she was raised. OBJECTIVE Appears mildly anxious, tearful when discussing her social situation. Vital signs: BP 128/72, pulse60, respirations 16, weight 142, afebrile. HEENT: Atraumatic, normocephalic, anicteric sclerae, normal conjunctivae, pupils are equal and round. Heart is regular. Respirations are unlabored. The skinis warm, dry; on the plantar surface of her right foot under the ball of the metatarsal joint, there is a 1 cm lesion, which is consistent with a plantar wart. Neurologic: Awake, alert, GCS 15, some word-finding difficulty (per chart this may be baseline), strength 4+/5 in the right lower extremity, 5+/5 otherwise. Sensation to monofilament in both feet is normal. Cranial nerves II-XII intact. Gait is somewhat wide-based with somewhat deliberate and exaggerated extension of the right leg. ASSESSMENT/PLAN 1. Balance problems. Unclear if this is from citalopram as the patient is concerned about; I did not find dysequilibrium listed in [employer] as a common side effect, but it certainly would be possible. She can try discontinuing citalopram at her discretion. Her nonfocal exam does not make me worried that she needs acute imaging of the brain, but I would like to see go see Neurology for possible extension of her infarction area. Continue physical therapy with emphasis on gait training. Continue Aggrenox. 2. Shoulder pain. I would not prescribe any further tramadol, especially while she is on citalopram, given the risk of drug interaction and seizures. She is not asking for any pain medications today regardless. Continue physical therapy for the shoulder. Referral given to orthopaedics as I suspect she probably has some rotator cuff problems, which may benefit from injection. 3. Mood disorder NOS. It is somewhat unlikely that the citalopram is improving her mood by itself since she had response to initiation of this medication after only a few days, but it may be helping some at this time. As noted above, she may discontinue this if she thinks it may be causing problemswith her equilibrium. If she does stop this, I advised her that she may have some withdrawal symptoms (reviewed) for a week or two. If she is noticing worsening of her anxiety she should call the office and she could certainly start the medication up again. 4. Hyperlipidemia. Overdue for checking fasting lipids. Liver function tests were normal in February 2008. Seventy-five minutes, greater than 50% face to face with the patient counseling on above issues. Signed by Star Vasquez MD 07/28/2008 11:00 Star Vasquez MD P Job ID [id number] T: 6:00 A/LW Doc ID [id number] cc: documented in this encounter Plan of Treatment Upcoming Encounters Date Type Department Care Team (Late st Contact Info) Description 02/03/2024 12:45 EDT Office Visit [facility] Ophthalmology [address] [address] Goldy Guzman MD [address] [place] [address] documented as of this encounter Visit Diagnoses Not on filedocumented in this encounter Care Teams Card Room Manager Relationship Specialty Start Date End Date Star Vasquez MD [address] [place] [address] PCP - General 12/02/08 09/03/12 documented as of this encounter
--- OUTSIDE RECORDS SUMMARY | 2024-01-12 02:08 | XMS_ITS | Encounter Summary ---
Author Organization [facility] Address [address] [place] [address] Care Team Providers Care Php Web Developer Name Role Phone Star Vasquez MD Primary Care Provider [phone] Encounter Details Date Type Department Care Team (Late st Contact Info) Description 04/06/2008 Before PRISM Converted Visit (Maple) [facility] - Maple conversion [address] [place] [address] Yessenia Gan, KIMBERLY [address] [facility] [address] [place] [address] Social History Tobacco Use Types Packs/Day Years Used Date Smoking Tobacco: Never Assessed Sex and Gender Information Value Date Recorded Sex Assigned at Not on file Gender Identity Female 10/16/2020 9:54 EDT Sexual Orientation Not on file documented as of this encounter Progress Notes * Yessenia Gan MD - 01/21/2009 0658 EDT [facility] PROGRESS/FOLLOWUP NOTE - 04/06/2008 Randi is here to follow up her citalopram use. I saw her on the where she appeared to be depressed and anxious and a little bit forgetful. At that time, she really was interested in some Tramadol for discomfort that she gets into the right shoulder, which relieves discomfort post-stroke. Shedoes get regular manipulation by an osteopath for her neck and shoulder. I gave her 10 Tramadol back on the March 24, 2008,and actually she is doing quite well with not using them as much, has some left. She also tells me that she is feeling better with the citalopram. She initially took a halfa pill, which she felt initially better, and then she felt like things may be back to square one. Now she is taking the 20, which she is actually feeling fairly good about. OBJECTIVE Blood pressure 116/70, pulse 80, weight 147. She seems to be in improved mood, less anxious, and she is not asking for any more medications today. PLAN She will continue with the citalopram. She can follow up in six months or so unless she has recurrence of issues. She can at some point get some more Tramadol if she really needs it, but I did suggest moist heat to the area, which she concurred with our plan. Signed by KIMBERLY Blanco 04/13/2008 16:16 KIMBERLY Blanco KIMBERLY Malik P - Job ID: [id number] Document ID: [id number] cc: cc: documented in this encounter Plan of Treatment Upcoming Encounters Date Type Department Care Team (Late st Contact Info) Description 02/03/2024 12:45 EDT Office Visit [facility] Ophthalmology [facility] [address] [place] [address] Goldy Guzman MD [address] [place] [phone] documented as of this encounter Visit Diagnoses Not on filedocumented in this encounter Care Teams Php Web Developer Relationship Specialty Start Date End Date Star Vasquez MD [address] [place] [phone] PCP - General 12/02/08 09/03/12 documented as of this encounter
--- OUTSIDE RECORDS SUMMARY | 2024-01-12 02:08 | XMS_ITS | Encounter Summary ---
Author Organization [facility] Address [address] [place] [address] Care Team Providers Care Senior Java J2Ee Developer Name Role Phone Star Vasquez MD Primary Care Provider [phone] Reason for Visit * Reason Onset Date Comments Medications Refill 11/15/2009 Encounter Details Date Type Department Care Team (Late st Contact Info) Description 11/15/2009 Refill [facility] Family [address] [address] Rola Hatfield RN Medications Refill Social History Tobacco Use [...] mouth 2 times daily. 180 Cap 3 11/15/2009 12/26/2010 documented in this encounter Plan of Treatment Upcoming Encounters Date Type Department Care Team (Late st Contact Info) Description 02/03/2024 12:45 EDT Office Visit [facility] Ophthalmology [facility] [address] [place] [address] Goldy Guzman MD [address] [place] [phone] documented as of this encounter Visit Diagnoses Not on filedocumented in this encounter Discontinued Medications Medication Sig Discontinue Reason Start Date End Da te dipyridamole-aspirin (AGGRENOX) 200-25 mg per capsule Take 1 Cap by mouth 2 times daily. Reorder 11/15/2009 documented as of this encounter Care Teams Senior Java J2Ee Developer Relationship Specialty Start Date End Date Star Vasquez MD [address] [place] [address] PCP - General 12/02/08 09/03/12 documented as of this encounter
--- OUTSIDE RECORDS SUMMARY | 2024-01-12 02:08 | XMS_ITS | Encounter Summary ---
Author Organization [facility] Address [address] [place] [address] Care Team Providers Care Mail Processing Machine Operator Name Role Phone Star Vasquez MD Primary Care Provider [phone] Encounter Details Date Type Department Care Team (Late st Contact Info) Description 08/10/2007 Before PRISM Converted Visit (Maple) [facility] - Maple conversion [address] [place] [address] Kristina Pritchard MD [address] [place] [phone] Social History Tobacco Use Types Packs/Day Years Used Date Smoking Tobacco: Never Assessed Sex and Gender Information Value Date Recorded Sex Assigned at Not on file Gender Identity Female 10/16/2020 9:54 EDT Sexual Orientation Not on file documented as of this encounter Progress Notes * Anirudh, Conv Eyelet Cutter - 05/10/2009 1425 EST [facility] PROGRESS/FOLLOWUP NOTE - 08/10/2007 EYAD Bryan is here concerned about a rash around her right eye. Noticed it several days ago but it hasonly been in the last 24 hours that she has noticed some vesicles and what she describes as scaling. Also has a tickling feeling and some pain in the reddened area. Denies any visual disturbance. Didhave a bad cold sore before Phil but that has been better for quite some time. We also discussed her allergies and we need to try loratadinebefore fexofenadine will be approved by the State. Libertads had to reschedule her mammogram several times but has that scheduled for the near future per her report. Checking blood pressures at home and they have been better. OBJECTIVE On exam, blood pressure 148/64. Pulse is 92. Weight is 150 pounds. In general, she is in no acute distress. She does have some erythema in the upper eyelid as well as above the brow and on the temporal area. There is no erythema or lesion noted at the tip of the nose. Extraocular movements are fulland nonpainful. No obvious abnormalities of the globe itself. There are small crusted lesions on the temporal aspect of the rash. ASSESSMENT Probable herpes zoster. PLAN Since the vesicles have only occurred over the day, we will try her on Valtrex 1000 mg t.i.d. for seven days. I told the patient and wrote down that she needs to watch for any redness or lesions at the tip of the nose and to call to be seen urgently by ophthalmology if this occurs. She verbalized understanding of this. 2. Allergies. Loratadine 10 mg daily written. If this does not help in a couple of weeks, have asked her to call so we can get a prior authorization for fexofenadine. 3. Well care. Follow up with mammogram. 4. Hypertension. Continue with blood pressure check as she has been doing at home. Will plan to seeher back as we had originally scheduled. Signed by Kristina Pritchard MD 08/15/2007 09:20 Kristina Pritchard MD P Job ID [id number] T: 10:22 A/SIDNEY Doc ID [id number] cc: documented in this encounter Plan of Treatment Upcoming Encounters Date Type Department Care Team (Late st Contact Info) Description 02/03/2024 12:45 EDT Office Visit [facility] Ophthalmology [facility] [address] [place] [address] Goldy Guzman MD [address] [place] [phone] documented as of this encounter Visit Diagnoses Not on filedocumented in this encounter Care Teams Mail Processing Machine Operator Relationship Specialty Start Date End Date Star Vasquez MD [address] [phone] PCP - General 12/02/08 09/03/12 documented as of this encounter
--- OUTSIDE RECORDS SUMMARY | 2024-01-12 02:08 | XMS_ITS | Encounter Summary ---
Author Organization [facility] Address [address] [place] [address] Care Team Providers Care Property Technician Name Role Phone Star Vasquez MD Primary Care Provider [phone] Encounter Details Date Type Department Care Team (Late st Contact Info) Description 01/20/2008 Before PRISM Converted Visit (Maple) [facility] - Maple conversion [address] [place] [address] Yessenia Gan, KIMBERLY [address] [place], [place] [address] Social History Tobacco Use Types Packs/Day Years Used Date Smoking Tobacco: Never Assessed Sex and Gender Information Value Date Recorded Sex Assigned at Not on file Gender Identity Female 10/16/2020 9:54 EDT Sexual Orientation Not on file documented as of this encounter Progress Notes * Yessenia Gan MD - 03/31/2009 1155 EDT [facility] PROGRESS/FOLLOWUP NOTE - 01/20/2008 EYAD Bryan is here because of two reasons; one being that she is not sleeping very well. Lately, she has got a lot of stressors in her life. She has a wedding that she needs to attend this weekend. She would like to have some help with sleep at this point. She is taking Ultram periodically for some shoulder pain, but this is more of a problem of real good, solid sleep and some stressors. The other issue is that she has a burning sensation occasionally off and on over the last few weeksthat she mostly feels in her lower abdomen in her pubic area and not so much at outlet and is wondering what is going on. OBJECTIVE Blood pressure 122/60, pulse 68, weight 142. UA shows 1+ bile, 1+ ketones, positive nitrites, and trace leukocytes. ASSESSMENT Urinary tract infection with insomnia. PLAN Most of the discussion today was related to sleep, almost the entire visit of 30 minutes, in terms of sleep hygiene, what she needs to do to help herself sleep, but I am giving her a prescription forsome Ambien 5 mg that she will use one at bedtimeas needed. I have given her #9 of them with no refills. She will follow up as needed. I encouraged her to push her fluids. I also gave her a prescripti on for some Bactrim DS one b.i.d. times three days, #6 were written for with no refills. She understood our discussion. I wrote it down for her as well as the plans and she concurred with them. Signed by KIMBERLY Blanco 01/21/2008 14:43 KIMBERLY Blanco - KIMBERLY Valerio P - Job ID: [id number] Document ID: [id number] cc: - KIMBERLY Blanco P - kab Job ID: [id number] Document ID: [id number] cc: documented in this encounter Plan of Treatment Upcoming Encounters Date Type Department Care Team (Late st Contact Info) Description 02/03/2024 12:45 EDT Office Visit [facility] Ophthalmology [facility] [address] [place] [address] Goldy Guzman MD [address] [place] [phone] documented as of this encounter Visit Diagnoses Not on filedocumented in this encounter Care Teams Property Technician Relationship Specialty Start Date End Date Star Vasquez MD [address] [place] [address] PCP - General 12/02/08 09/03/12 documented as of this encounter
--- OUTSIDE RECORDS SUMMARY | 2024-01-12 02:08 | XMS_ITS | Encounter Summary ---
Author Organization [facility] Address [address] [place] [address] Care Team Providers Care Spool Salvager Name Role Phone Unavailable Primary Care Provider Unavailabl e Encounter Details Date Type Department Care Team (Late st Contact Info) Description 09/12/2008 13:20 EDT Hospital Encounter [place] [id number] [place] [address] Star Vasquez MD [address] [place] [phone] Social History Tobacco Use Types Packs/Day Years [...] 9:16 EDT documented as of this encounter Plan of Treatment Upcoming Encounters Date Type Department Care Team (Late st Contact Info) Description 02/03/2024 12:45 EDT Office Visit [facility] [address] [place], [place] [phone] Goldy Guzman MD [address] [place] [address] documented as of this encounter Visit Diagnoses Not on filedocumented in this encounter
--- OUTSIDE RECORDS SUMMARY | 2024-01-12 02:08 | XMS_ITS | Encounter Summary ---
Author Organization Health system Address [address] [place] [address] Care Team Providers Care Rn Military Name Role Phone Star Vasquez MD Primary Care Provider [phone] Encounter Details Date Type Department Care Team (Late st Contact Info) Description 06/29/2007 Before PRISM Converted Visit (Maple) [facility] - Maple conversion [address] [place] [address] Kristina Pritchard MD [address] [place] [phone] Social History Tobacco Use Types Packs/Day Years Used Date Smoking Tobacco: Never Assessed Sex and Gender Information Value Date Recorded Sex Assigned at Not on file Gender Identity Female 10/16/2020 9:54 EDT Sexual Orientation Not on file documented as of this encounter Progress Notes * Anirudh, Conv Licensed Mental Health Professional - 05/10/2009 1056 EST [facility] PROGRESS/FOLLOWUP NOTE - 06/29/2007 EYAD Bryan comes in at my request regarding her chronic pain problem. She had been started on Tramadolby Dr. Corral for bedtime to get her sleeping. She then increased it to two 50-mg tabletsat night, but had been going through a fair amount of tramadol recently, so that is why I asked her to come in. Since the call about this appointment, she has done a trial and notices that with b.i.d. tramadol she does okay, having just some pain. With t.i.d. tramadol she gets rid of almost all of her pain. States she does not want to get rid of all of her pain, but would like to be functional, so she feelsthat most days she would use it twice a day, occasionally three times. She is also on new medicationby Dr. Corral for mental sharpness, but she does not know the name of it and I could not find anything with the spelling she was providing. Notes that the medial end of her clavicle protrudes furtheranteriorly on the right than the left. The right is the side that has been affected by the stroke. Notes when she lies down and brings her shoulders way back it just about comes back to baseline. Shehas not yet spoken with about this. OBJECTIVE Blood pressure 132/68, pulse 84. Repeat by me after discussing several stressful events was 152/82,which did correlate well with her home blood pressure machine. Evaluation of the clavicle revealed some protrusion of the medial clavicle anteriorly, which is nonpainful to touch. With good posture and pulling the right shoulder back, it almost completely goes back to its normal position. ASSESSMENT 1. Shoulder pain, which at least is status quo. PLAN 1. Continue with the tramadol and prescription written for 90, which will allow her to use it b.i.d. most days with an occasional third as needed. 2. She will also continue to see Dr. Corral for evaluation. Like to have him evaluate her for the clavicle issue as well. 2. Hypertension. Initially, good blood pressure numbers were noted. PLAN 1. She will continue to monitor at home. 2. I would like to see her back in two to three months to make sure that these numbers are not going out of control. I would be happy to see her back sooner if needed. WELL CARE Flu shot was given earlier this month. Thirty minutes were spent with this patient, greater than 50% of the time in counselling. Signed by Kristina Pritchard MD 07/03/2007 09:55 Kristina Pritchard MD P Job ID [id number] T: 10:19 A/ms Doc ID [id number] cc: P Job ID [id number] A/ms Doc ID [id number] cc: documented in this encounter Plan of Treatment Upcoming Encounters Date Type Department Care Team (Late st Contact Info) Description 02/03/2024 12:45 EDT Office Visit [facility] Ophthalmology [facility] [address] [place] [address] Goldy Guzman MD [address] [place] [phone] documented as of this encounter Visit Diagnoses Not on filedocumented in this encounter Care Teams Rn Military Relationship Specialty Start Date End Date Star Vasquez MD [address] [place] [address] PCP - General 12/02/08 09/03/12 documented as of this encounter
--- OUTSIDE RECORDS SUMMARY | 2024-01-12 02:08 | XMS_ITS | Encounter Summary ---
Author Organization [facility] Address [address] [place] [address] Care Team Providers Care Sewing Machine Operator Plastic Zipper Name Role Phone Star Vasquez MD Primary Care Provider [phone] Reason for Visit * Reason Onset Date Comments Medications Refill 11/15/2009 Encounter Details Date Type Department Care Team (Late st Contact Info) Description 11/15/2009 Refill [facility] Medicine [address] [place], [place] [address] Star Vasquez MD [address] [place] [phone] Medications Refill Social History Tobacco Use Types [...] encounter Miscellaneous Notes * Telephone Encounter - Rola Hatfield RN - 11/15/2009 1140 EDT Med ordered * Telephone Encounter - Julianne Proctor - 11/15/2009 1118 EDT NEEDS RENEWAL ON AGGRENOX. SHE IS GOING AWAY TOMORROW AND IS ALL OUT. SHE SAID SOMEONE IS ON THERE WAY TO PICK IT UP. TOLD HER THAT IT WOULDN'T BE READY THAT SOON. documented in this encounter Plan of Treatment Upcoming Encounters Date Type Department Care Team (Late st Contact Info) Description 02/03/2024 12:45 EDT Office Visit [facility] Ophthalmology [facility] [address] [place] [address] Goldy Guzman MD [address] [place] [phone] documented as of this encounter Visit Diagnoses Not on filedocumented in this encounter Care Teams Sewing Machine Operator Plastic Zipper Relationship Specialty Start Date End Date Star Vasquez MD [address] [place] [address] PCP - General 12/02/08 09/03/12 documented as of this encounter
--- OUTSIDE RECORDS SUMMARY | 2024-01-12 02:08 | XMS_ITS | Encounter Summary ---
Author Organization [facility] Address [address] [place] [address] Care Team Providers Care Brass Cleaner Name Role Phone Star Vasquez MD Primary Care Provider [phone] Encounter Details Date Type Department Care Team (Late st Contact Info) Description 12/15/2006 Before PRISM Converted Visit (Maple) [facility] - Maple conversion [address] [place] [address] Kristina Pritchard MD [address] [place] [phone] Social History Tobacco Use Types Packs/Day Years Used Date Smoking Tobacco: Never Assessed Sex and Gender Information Value Date Recorded Sex Assigned at Not on file Gender Identity Female 10/16/2020 9:54 EDT Sexual Orientation Not on file documented as of this encounter Progress Notes * Anirudh, Conv Train Dispatcher - 05/04/2009 0009 EST [facility] PROGRESS/FOLLOWUP NOTE - 12/15/2006 EYAD Bryan comes in for followup from her appointment with Dr. Corral. He was concerned that she may be having a dry cough secondary to the SHELLY inhibitor that she has been on. She has been changed from Losartan over the past week and that has seemed to have made a difference. She denies any other problems with the Losartan. She does complain of continued right-sided shoulder pain. Shesaw Dr. Corral for this but was not sure what she should do next about this. She had been doing physical therapy very regularly when she was in an acute rehabilitation setting but has, by her own account, decreased the amount that she is active at thistime. specifically asked about depression because Iwas concerned regarding her state of mind. Her daughter accompanies her today and the patient is forthcoming at this point that her is an alcoholic. This was not known to me previously. She feels like she is doing fairly well with this. She also feels itchy all over. The only change in medication that has been done in the time frame that she has described is a change from Lipitor to simvas tatin, which was done because of insurance purposes. her current regimen, Dr. Corral checked some labs including comprehensive metabolic profile, hemoglobin A1c, folic acid, B12, thyroid function tests, and sedimentation rate, all of which were within normal limits. Her cholesterol was last checkedin August on Lipitor and her LDL was 71, total of 130, HDL 40. complains of fatigue to a fair extentas well. Again, this seems to be worse since she has been out of acute rehabilitation and not as active. OBJECTIVE On examination, blood pressure is 140/60, pulse of 60. In general, she is in no acute distress. Sheis not tearful. She does seem to laugh at slightly inappropriate times but she blames her stroke forher emotional lability. No evidence of rash seen.Evaluation of her shoulders reveals normal range of motion on the left. There is diminished abduction on the right. Internal rotation and external rotation are both somewhat limited as well. Strength appears normal. ASSESSMENT PROBLEM 1: Right shoulder pain with concern about patient developing a frozen shoulder. PLAN What we discussed was increasing physical therapy work before sending her to an orthopaedist. I asked her if she thought she would benefit from formal physical therapy, whether it was at the hospitalor through home health, but the patient states that she knows what she has to do and she just has to motivate herself to do so. PROBLEM 2: Fatigue. Negative lab work as noted by Dr. Corral. PLAN Will check a CBC for completeness. PROBLEM 3: Itching diffusely. Again, negative lab work but will check a uric acid level as well. PROBLEM 4: Social. Again, I do worry about depression happening in this patient. She states things are fine at this point and she would not consider going on an antidepressant and does not feel that counseling would bebeneficial. PLAN I will plan to see her back in about one month to see how things are going. Also should consider checking a cholesterol panel within the next few months since the switch to simvastatin was made. Signed by Kristina Pritchard MD 12/21/2006 11:38 Jelena Pritchard, Yanci Pritchard MD Kristina Pritchard MD P Job ID A/[facility] Doc [id number] cc: documented in this encounter Plan of Treatment Upcoming Encounters Date Type Department Care Team (Late st Contact Info) Description 02/03/2024 12:45 EDT Office Visit [facility] Ophthalmology [facility] [address] [place] [address] Goldy Guzman MD [address] [place] [phone] documented as of this encounter Visit Diagnoses Not on filedocumented in this encounter Care Teams Brass Cleaner Relationship Specialty Start Date End Date Star Vasquez MD [address] [place] [address] PCP - General 12/02/08 09/03/12 documented as of this encounter
--- OUTSIDE RECORDS SUMMARY | 2024-01-12 02:08 | XMS_ITS | Encounter Summary ---
Author Organization [facility] Address [address] [place] [address] Care Team Providers Care Stuffer Name Role Phone Star Vasquez MD Primary Care Provider [phone] Encounter Details Date Type Department Care Team (Late st Contact Info) Description 01/28/2008 Before PRISM Converted Visit (Maple) [facility] - Maple conversion [address] [place] [address] Kristina Pritchard MD [address] [place] [phone] Social History Tobacco Use Types Packs/Day Years Used Date Smoking Tobacco: Never Assessed Sex and Gender Information Value Date Recorded Sex Assigned at Not on file Gender Identity Female 10/16/2020 9:54 EDT Sexual Orientation Not on file documented as of this encounter Progress Notes * Anirudh, Conv Grit Blaster - 03/31/2009 1205 EDT [facility] PROGRESS/FOLLOWUP NOTE - 01/28/2008 EYAD Bryan comes in because she is questioning a UTI. She was seen on January 20, 2008, and diagnosed with a urinary tract infection. At that point, her urinalysis showed 1+ bili, 1+ ketones, positive nitrites and trace of leukocytes. She was placed on Bactrim DS 1 p.o. b.i.d. for three days. continues to have some symptoms despite that treatment. She described some intermittent twinges in the right flank area. She has a history of renal stones about 10 years ago and states they actually had to use alaser to break it up. She denies any fever or CV angle pain. She is not having any dysuria at this time. OBJECTIVE On exam, temperature is 97.3, blood pressure 120/70, and pulse is 84. Weight is 145 pounds. Urinalysis is positive for 2+ blood and 1+ leukocytes. There is no CV angle tenderness. The abdomen is soft and nondistended and no tenderness is noted. ASSESSMENT Hematuria, questionable recurrence of stones. PLAN Will culture her urine but not treat it unless it is positive. Schedule a CT of her genitourinary system to rule out stones. If culture is negative and CT unrevealing, may need further evaluation through urology and, if so, she would prefer Dr. Chiang. Signed by Kristina Pritchard MD 02/03/2008 14:36 Kristina Pritchard MD P Job ID [id number] A/[facility] Doc ID [id number] cc: documented in this encounter Plan of Treatment Upcoming Encounters Date Type Department Care Team (Late st Contact Info) Description 02/03/2024 12:45 EDT Office Visit [facility] [address] [place] [address] Goldy Guzman MD [address] [place] [phone] documented as of this encounter Visit Diagnoses Not on filedocumented in this encounter Care Teams Stuffer Relationship Specialty Start Date End Date Star Vasquez MD [address] [place] [phone] PCP - General 12/02/08 09/03/12 documented as of this encounter
--- OUTSIDE RECORDS SUMMARY | 2024-01-12 02:08 | XMS_ITS | Encounter Summary ---
Author Organization [facility] Address [address] [place] [address] Care Team Providers Care Double End Chucking Machine Operator Name Role Phone Star Vasquez MD Primary Care Provider [phone] Reason for Referral * Consult (Routine) - Closed Specialty Diagnoses / Procedures Referred By Layne romeo Referred To Contact Orthopedic Surgery Diagnoses Trigger finger Star Vasquez MD [address] [place] [address] [facility] [place] [address] [place] [address] Referral ID Status Reason Start Date Expiration Date V isits Requested Visits Authorized [id number] Closed Specialty Services Required 03/30/2010 1 1 Question Answer Reason for Request: right 3rd finger and left finger pain/carpal tunnel Comments Drs. Bell/Chioma Reason for Visit * Reason Comments Referral Request to get trigger finge r repaired Encounter Details Date Type Department Care Team (Late st Contact Info) Description 03/30/2010 14:00 EDT Office Visit [address] [place] [address] Star Vasquez MD [address] [address] Trigger finger (Primary Dx); Need for influenza vaccination Discharge Disposition: Auto Discharge Social History Tobacco [...] Sign Reading Time Taken Comments Blood Pressure 148/75 03/30/2010 1402 EDT Pulse 84 03/30/2010 1402 EDT Temperature - - Respiratory Rate 18 03/30/2010 1402 EDT Oxygen Saturation - - Inhaled Oxygen Concentration - - Weight 70.3 kg (155 lb) 03/30/2010 1402 EDT Height 155.6 cm (5' 1.25) 03/30/2010 1402 EDT Body Mass Index 29.05 03/30/2010 1402 EDT documented in this encounter Ordered Prescriptions Prescription Sig Dispensed Refills Start Date End Da te loratadine (CLARITIN) 10 mg tablet Take 1 Tab by mouth daily. 30 Tab 11 03/30/2010 09/27/2010 documented in this encounter Discharge Disposition Disposition Code Departure Means Destination Auto Discharge documented in this encounter Progress Notes * Star Vasquez MD - 03/30/2010 1442 EDT Images from the original note were not included. Subjective: Patient ID: Randi Oswald is an 69 y.o. female. Chief Complaint Patient presents with ??? Referral Request to get trigger finger repaired HPI Comments: TRIGGER - Right 3rd finger triggers, painful into palm. Has both thumbs and right 4th trigger fixedin past. Patient Active Problem List Diagnoses Code ??? [...] tunnel release V45.89TY ??? Plantar wart 078.12 Past Medical History Diagnosis Date ??? Allergy ??? Anemia ??? Cataract ??? Chronic kidney disease Current outpatient prescriptions ordered prior to encounter Medication Sig Dispense Refill ??? fexofenadine (BRENT) 180 mg tablet Take 1 Tab by mouth daily. 30 Tab 5 ??? losartan (COZAAR) 100 mg tablet Take 1 Tab by mouth daily. 90 Tab 2 ??? simvastatin (ZOCOR) 40 mg tablet Take 1 Tab by mouth daily. 30 Tab 5 ??? dipyridamole-aspirin (AGGRENOX) 200-25 mg per [...] be prescribed by Dr. Corral only No Active Allergies Social History Substance Use Topics ??? Tobacco Use: Quit -- 30 years ??? Alcohol Use: Yes rare ROS - See HPI Objective: BP 148/75 Pulse 84 Resp 18 Ht 155.6 cm (61.25) Wt 70.308 kg (155 lb) Physical Exam Constitutional: She is oriented to person, place, and time. She appears well- developed and well-nourished. Non-toxic appearance. Eyes: Conjunctivae are normal. No scleral icterus. Cardiovascular: Regular rhythm. Pulmonary/Chest: Effort normal. Musculoskeletal: Hands: Neurological: She is alert and oriented to person, place, and time. Gait normal. GCS eye subscore is 4. GCS verbal subscore is 5. GCS motor subscore is 6. Skin: Skin is warm and dry. No rash noted. Assessment: Plan: Randi was seen today for referral request. Diagnoses and associated orders for this visit: Trigger finger - Ambulatory Consult Orthopedics Need for influenza vaccination - Flu vaccine greater than or equal to 3yo split IM Other Orders - loratadine (CLARITIN) 10 mg tablet; Take 1 Tab by mouth daily. documented in this encounter Plan of Treatment Upcoming Encounters Date Type Department Care Team (Late st Contact Info) Description 02/03/2024 12:45 EDT Office Visit [facility] Ophthalmology [facility] [address] [place] [address] Goldy Guzman MD [address] [place] [phone] Scheduled Referrals Name Type Priority Associated Diagnoses Order Schedule AMB CONSULT ORTHOPEDICS Outpatient Referral Routine Trigger finger Ordered: 03/30/2010 documented as of this encounter Visit Diagnoses Diagnosis Trigger finger- Primary Trigger finger (acquired) Need for influenza vaccination Need for prophylactic vaccination and inoculation against influenza documented in this encounter Discontinued Medications Medication Sig Discontinue Reason Start Date End Da te fexofenadine (BRENT) 180 mg tabletIndications:Environ mental allergies Take 1 Tab by mouth daily. Formulary change 12/18/2009 03/30/2010 documented as of this encounter Orders Immunization/Injection Count Last Ordered Date First Ordered Date FLU VACCINE =>3YO SPLIT IM 1 03/30/2010 documented in this encounter Care Teams Double End Chucking Machine Operator Relationship Specialty Start Date End Date Star Vasquez MD [address] [place] [address] PCP - General 12/02/08 09/03/12 documented as of this encounter
--- OUTSIDE RECORDS SUMMARY | 2024-01-12 02:08 | XMS_ITS | Encounter Summary ---
Author Organization [facility] Address [address] [place] [address] Care Team Providers Care Emblem Fuser Tender Name Role Phone Star Vasquez MD Primary Care Provider [phone] Encounter Details Date Type Department Care Team (Late st Contact Info) Description 05/20/2007 Before PRISM Converted Visit (Maple) [facility] - Maple conversion [address] [place] [address] Yessenia Gan FNP [address] [place], [place] [address] Social History Tobacco Use Types Packs/Day Years Used Date Smoking Tobacco: Never Assessed Sex and Gender Information Value Date Recorded Sex Assigned at Not on file Gender Identity Female 10/16/2020 9:54 EDT Sexual Orientation Not on file documented as of this encounter Progress Notes * Yessenia Gan MD - 05/10/2009 1304 EST [facility] PROGRESS/FOLLOWUP NOTE - 05/20/2007 EYAD Bryan is here because she has had some sinus drainage, some cough. This started actually on Friday. She took some Laura D once a day and that seemed to help her. Tother part of the day she is nottaking it, she is having a little more postnasal drip. She has a history of allergies but she does not remember having them this late. OBJECTIVE Blood pressure is 130/60; pulse is 60, and temperature 97.5. Throat looks normal. Ears are normal. Lungs are clear. Neck is negative for any adenopathy. ASSESSMENT Upper respiratory infection. PLAN She is reassured. I have asked her to push fluids, do some steam, and try to boost her immune system by extra vitamin C or zinc. She will follow up as needed. Signed by KIMBERLY Blanco 05/25/2007 16:48 KIMBERLY Blanco D: - KIMBERLY Blanco P - [facility] Job ID: [id number] Document ID: [id number] cc: documented in this encounter Plan of Treatment Upcoming Encounters Date Type Department Care Team (Late st Contact Info) Description 02/03/2024 12:45 EDT Office Visit [facility] Ophthalmology [address] [address] Goldy Guzman MD [address] [place] [phone] documented as of this encounter Visit Diagnoses Not on filedocumented in this encounter Care Teams Emblem Fuser Tender Relationship Specialty Start Date End Date Star Vasquez MD [address] [place] [address] PCP - General 12/02/08 09/03/12 documented as of this encounter
--- OUTSIDE RECORDS SUMMARY | 2024-01-12 02:08 | XMS_ITS | Encounter Summary ---
Author Organization [facility] Address [address] [place] [address] Care Team Providers Care Attorney Recruiter Name Role Phone Unavailable Primary Care Provider Unavailabl e Encounter Details Date Type Department Care Team (Latest Contact Info) Description 10/28/2006 18:48 EDT - 11/27/2006 11:59 EDT Hospital Encounter [facility] [address] [place] [address] Estefani Rich MD [address] [place] [phone] Horace Corral, DO [address] [phone] Discharge Disposition: Auto Discharge Social History Tobacco Use Types Packs/Day Years Used Date Smoking Tobacco: Never Assessed Sex and Gender Information Value Date Recorded Sex Assigned at Not on file Gender Identity Female 10/16/2020 9:54 EDT Sexual Orientation Not on file documented as of this encounter Discharge Disposition Disposition Code Departure Means Destination Auto Discharge documented in this encounter Plan of Treatment Upcoming Encounters Date Type Department Care Team (Late st Contact Info) Description 02/03/2024 12:45 EDT Office Visit [facility]hthalmology [facility] [address] [place] [address] Goldy Guzman MD [address] [place] [phone] documented as of this encounter Visit Diagnoses Not on filedocumented in this encounter
--- OUTSIDE RECORDS SUMMARY | 2024-01-12 02:08 | XMS_ITS | Encounter Summary ---
Author Organization [facility] Address [address] [place] [address] Care Team Providers Care Poultry Helper Name Role Phone Star Vasquez MD Primary Care Provider [phone] Encounter Details Date Type Department Care Team (Latest Contact Info) Description 12/05/2008 10:18 EDT - 12/05/2008 23:59 EDT Hospital Encounter [facility] [address] [place] [address] Torres Rubio MD [address] [place] [phone] Discharge Disposition: Auto Discharge Social History Tobacco Use Types Packs/Day Years Used Date Smoking Tobacco: Never Assessed Sex and Gender Information Value Date Recorded Sex Assigned at Not on file Gender Identity Female 10/16/2020 9:54 EDT Sexual Orientation Not on file documented as of this encounter Discharge Disposition Disposition Code Departure Means Destination Auto Discharge Home documented in this encounter Plan of Treatment Upcoming Encounters Date Type Department Care Team (Late st Contact Info) Description 02/03/2024 12:45 EDT Office Visit [facility] Ophthalmology [facility] [address] [place], [place] [address] Goldy Guzman MD [address] [place] [phone] documented as of this encounter Visit Diagnoses Not on filedocumented in this encounter Care Teams Poultry Helper Relationship Specialty Start Date End Date Star Vasquez MD [address] [place] [address] PCP - General 12/02/08 09/03/12 documented as of this encounter
--- OUTSIDE RECORDS SUMMARY | 2024-01-12 02:08 | XMS_ITS | Encounter Summary ---
Author Organization [facility] Address [address] [place] [address] Care Team Providers Care Senior Research Project Manager Name Role Phone Star Vasquez MD Primary Care Provider [phone] Encounter Details Date Type Department Care Team (Latest Contact Info) Description 04/19/2009 9:14 EDT - 04/19/2009 23:59 EDT Hospital Encounter [facility] [phone] Unknown, Provider, Discharge Disposition: Home or Self Care Social History Tobacco Use Types Packs/Day Years Used Date Smoking Tobacco: Never Assessed Sex and Gender Information Value Date Recorded Sex Assigned at Not on file Gender Identity Female 10/16/2020 9:54 EDT Sexual Orientation Not on file documented as of this encounter Discharge Disposition Disposition Code Departure Means Destination Home or Self [facility] documented in this encounter Plan of Treatment Upcoming Encounters Date Type Department Care Team (Late st Contact Info) Description 02/03/2024 12:45 EDT Office Visit [facility] Ophthalmology [facility] [address] [place] [address] Goldy Guzman MD [address] [place] [phone] documented as of this encounter Procedures Procedure Name Priority Date/Time Associated Diagnosis Comments XR HAND 3V [id number] 04/19/2009 10:1 0 EDT XR HAND 3V [id number] 04/19/2009 10:0 9 EDT documented in this encounter Results * XR HAND 3V [id number] (04/19/2009 10:10 EDT) Anatomical Region Laterality Modality Other 04/19/2009 10:1 0 EDT 04/20/2009 11:41 EDT Narrative 04/20/2009 11:41 EDT Bilateral hands, 3 views each. ??Apr 19, 2009 10:09:00 AM Signs and Symptoms: ??bilat hand pain Comparison: ??None Findings: ??Three views of each hand shows normal bone mineralization. The soft tissues are grossly normal. The joint spaces in the hands and wrists are preserved bilaterally. No significant degenerative changes are identified. Impressions: Normal bilateral hand x-rays. Procedure Note 04/20/2009 Bilateral hands, 3 views each. Apr 19, 2009 10:09:00 AM Signs and Symptoms: bilat hand pain Comparison: None Findings: Three views of each hand shows normal bone mineralization. The soft tissues are grossly normal. The joint spaces in the hands and wrists are preserved bilaterally. No significant degenerative changes are identified. Impressions: Normal bilateral hand x-rays. Crystal Charles MD IMG DIAGNOSTIC IMAGI NG ORDERABLES * XR HAND 3V [id number] (04/19/2009 10:09 EDT) Anatomical Region Laterality Modality Other 04/19/2009 10:0 9 EDT 04/20/2009 11:41 EDT Narrative 04/20/2009 11:41 EDT Bilateral hands, 3 views each. ??Apr 19, 2009 10:09:00 AM Signs and Symptoms: ??bilat hand pain Comparison: ??None Findings: ??Three views of each hand shows normal bone mineralization. The soft tissues are grossly normal. The joint spaces in the hands and wrists are preserved bilaterally. No significant degenerative changes are identified. Impressions: Normal bilateral hand x-rays. Procedure Note 04/20/2009 Bilateral hands, 3 views each. Apr 19, 2009 10:09:00 AM Signs and Symptoms: bilat hand pain Comparison: None Findings: Three views of each hand shows normal bone mineralization. The soft tissues are grossly normal. The joint spaces in the hands and wrists are preserved bilaterally. No significant degenerative changes are identified. Impressions: Normal bilateral hand x-rays. Crystal Charles MD IMG DIAGNOSTIC IMAGI NG ORDERABLES documented in this encounter Visit Diagnoses Not on filedocumented in this encounter Care Teams Senior Research Project Manager Relationship Specialty Start Date End Date Star Vasquez MD [address] [place] [address] PCP - General 12/02/08 09/03/12 documented as of this encounter
--- OUTSIDE RECORDS SUMMARY | 2024-01-12 02:08 | XMS_ITS | Encounter Summary ---
Author Organization [facility] Address [address] [place] [address] Care Team Providers Care Theatrical Agent Name Role Phone Unavailable Primary Care Provider Unavailabl e Encounter Details Date Type Department Care Team (Latest Contact Info) Description 08/31/2008 14:55 EST Hospital Encounter [address] [address] Estefani Rich MD [address] [place] [address] Tarik Beckwith MD Discharge Disposition: Auto Discharge Social History Tobacco [...] Description 02/03/2024 12:45 EDT Office Visit [facility] Ophthalmology [facility] [address] [place] [address] Goldy Guzman MD [address] [place] [phone] documented as of this encounter Visit Diagnoses Not on filedocumented in this encounter
--- OUTSIDE RECORDS SUMMARY | 2024-01-12 02:08 | XMS_ITS | Encounter Summary ---
Author Organization [facility] Address [address] [place] [address] Care Team Providers Care Rolled Glass Crosscutter Name Role Phone Star Vasquez MD Primary Care Provider [phone] Encounter Details Date Type Department Care Team (Late st Contact Info) Description 07/11/[address] [address] Star Vasquez MD [address] [place] [phone] CVA (cerebral infarction); Hypertension; Hyperlipidemia; Nephrolithiasis; Chronic anxiety; GERD (gastroesophageal reflux disease); Environmental allergies; Anemia; Back pain; Osteopenia; Colon polyp; Chronic neck pain; Trigger finger Social History Tobacco Use Types Packs/Day Years [...] 02/03/2024 12:45 EDT Office Visit [facility] Ophthalmology [facility] [address] [place], [place] [address] Goldy Guzman MD [address] [place] [phone] documented as of this encounter Visit Diagnoses Diagnosis CVA (cerebral infarction) Unspecified cerebral artery occlusion with cerebral infarction Hypertension Unspecified essential hypertension Hyperlipidemia Other and unspecified hyperlipidemia Nephrolithiasis Calculus of kidney Chronic anxiety Anxiety state, unspecified GERD (gastroesophageal reflux disease) Esophageal reflux Environmental allergies Other allergy, other than to medicinal agents Anemia Anemia, unspecified Back pain Backache, unspecified Osteopenia Disorder of bone and cartilage, unspecified Colon polyp Benign neoplasm of colon Chronic neck pain Cervicalgia Trigger finger Trigger finger (acquired) documented in this encounter Historical Medications * This list may reflect changes made after this encounter. Medication Sig Dispensed Refills Start Date End Date VITAMIN B COMPLEX (B COMPLEX 50 ORAL) Take by mouth daily. TRAMADOL HCL (TRAMADOL ORAL) Take by mouth as needed. To be prescribed by Dr. Corral only 09/20/2010 gabapentin (NEURONTIN) 300 mg capsule Take 600 mg by mouth at bedtime. 03/08/2011 losartan (COZAAR) 100 mg tablet Take 100 mg by mouth daily. 10/27/2009 Cyanocobalamin (VITAMIN B-12) 2,000 mcg TbSR Take by mouth daily. 09/06/2011 Calcium-Cholecalciferol , D3, (CALCIUM WITH VITAMIN D) 600-400 mg-unit Tab Take 1 Tab by mouth daily. 06/09/2012 simvastatin (ZOCOR) 40 mg tablet Take 40 mg by mouth daily. 12/05/2009 dipyridamole-aspirin (AGGRENOX) 200-25 mg per capsule Take 1 Cap by mouth 2 times daily. 11/15/2009 added in this encounter Care Teams Rolled Glass Crosscutter Relationship Specialty Start Date End Date Star Vasquez MD [address] [place] [phone] PCP - General 12/02/08 09/03/12 documented as of this encounter
--- OUTSIDE RECORDS SUMMARY | 2024-01-12 02:08 | XMS_ITS | Encounter Summary ---
Author Organization [facility] Address [address] [place] [address] Care Team Providers Care Taxation Economist Name Role Phone Star Vasquez MD Primary Care Provider [phone] Reason for Visit * Reason Comments Other here to have wart re moved from right foot Fatigue feels overly tired a nd has no energy for 2.5 yrs Encounter Details Date Type Department Care Team (Latest Contact Info) Description 12/18/2009 10:45 EDT Office Visit [address] [address] Star Vasquez MD [address] [place] [address] Environmental allergies (Primary Dx); Plantar wart Social History Tobacco Use Types Packs/Day Years [...] Sign Reading Time Taken Comments Blood Pressure 132/68 12/18/2009 1059 EDT Pulse 79 12/18/2009 1059 EDT Temperature - - Respiratory Rate 18 12/18/2009 1059 EDT Oxygen Saturation - - Inhaled Oxygen Concentration - - Weight 70.5 kg (155 lb 6.4 oz) 12/18/2009 1059 E DT Height 155.6 cm (5' 1.25) 12/18/2009 1059 EDT Body Mass Index 29.12 12/18/2009 1059 EDT documented in this encounter Patient Instructions * Patient Instructions* Star Vasquez MD - 12/18/2009 11:38 EDT Images from the original note were not included. [facility] Patient Instructions Saline Nasal Washes for Adults: After Your Visit Your Care Instructions Saline nasal washes help keep the nasal passages open by washing out thick or dried mucus. This simple remedy can help relieve symptoms of allergies, sinusitis, and colds. It also can make the nose feel more comfortable by keeping the mucous membranes moist. You may notice a little burning sensation in your nose the first few times you use the solution, but this usually gets better in a few days. Follow-up care is a cesar part of your treatment and safety. Be sure to make and go to all appointments, and call your doctor if you are having problems. It???s also a good idea to know your test results and keep a list of the medicines you take. How can you care for yourself at home? ?? You can buy premixed saline solution in a squeeze bottle at a drugstore. Read and follow the instructions on the label. You also can make your own saline solution. (Store it at room temperature in a clean container witha tight cover.) Mix: ? teaspoon salt. 1 cup water (at room temperature). ?? teaspoon baking soda. ?? If you use a homemade solution, pour a small amount into a clean bowl. Using a rubber bulb syringe, squeeze the syringe and place the tip in the salt water. Pull a small amount of the salt water into the syringe by relaxing your hand. Sit down with your head tilted slightly back. Do not lie down. Put the tip of the bulb syringe or the squeeze bottle a little way into one of your nostrils. Gently squirt a small amount (about 1 teaspoon) into the nostril. Repeat with the other nostril. Some sneezing and gagging are normal at first. Gently blow your nose. Wipe the syringe or bottle tip clean after each use. Repeat this 2 or 3 times a day. Use nasal washes gently if you have nosebleeds often. When should you call for help? Watch closely for changes in your health, and be sure to contact your doctor if: ?? You often get nosebleeds. You have problems doing the nasal washes. Where can you learn more? Go to www.[employer].net/fa Enter B784 in the search box to learn more about Saline Nasal Washes for Adults: After Your Visit. ?? 2005 - 2008 [employer]. Care instructions adapted under license by [facility], [facility] . This care instruction is for use with your licensed healthcare professional. If you have questions about a medical condition or this instruction, always ask your healthcare professional. [employer] disclaims any warranty or liability for your use of this information. documented in this encounter Ordered Prescriptions Prescription Sig Dispensed Refills Start Date End Da te fexofenadine (BRENT) 180 mg tabletIndications:Environm ental allergies Take 1 Tab by mouth daily. 30 Tab 5 12/18/2009 03/30/2010 documented in this encounter Progress Notes * Star Vasquez MD - 12/22/2009 0023 EDT Pre-op diagnosis/Post-op diagnosis: wart(s) Consent: Potential risks and expected benefits were discussed. All questions were answered. Verbal consent was obtained directly from the patient. Time-Out: Proper patient, procedure, and location of lesion(s) were reviewed directly with the patient at the time of the procedure. Prep: Alcohol Description: Patient was sitting up. 1 wart(s) identified on right foot - forefoot plantar surface.Lesions were sharply debrided using a #15 blade. Liquid nitrogen was applied to the warts using a cryogun through three freeze-thaw cycles. EBL: None Instructions:wound healing as expected * Star Vasquez MD - 12/18/2009 1137 EDT Subjective: Patient ID: Randi Oswald is an 69 y.o. female. Chief Complaint Patient presents with ??? Other here to have wart removed from right foot ??? Fatigue feels overly tired and has no energy for 2.5 yrs HPI Comments: Nasal congestion, phlegm, has done allergy decongestant in past with some relief. Mostly in winter and spring. Feels fatigued a lot. Patient Active Problem List Diagnoses Code ??? [...] 719.41 ??? S/P carpal tunnel release V45.89TY Past Medical History Diagnosis Date ??? Allergy ??? Anemia ??? Cataract ??? Chronic kidney disease Current outpatient prescriptions prior to encounter Medication Sig Dispense Refill ??? losartan (COZAAR) [...] 30 years ??? Alcohol Use: Yes rare Review of Systems Constitutional: Positive for malaise/fatigue. - See HPI Objective: BP 132/68 Pulse 79 Resp 18 Ht 1.556 m (5' 1.25) Wt 70.489 kg (155 lb 6.4 oz) Physical Exam Constitutional: She is oriented to person, place, and time. She appears well- developed and well-nourished. Eyes: Conjunctivae are normal. No scleral icterus. Cardiovascular: Regular rhythm. Pulmonary/Chest: Effort normal. Neurological: She is alert and oriented to person, place, and time. Gait normal. GCS eye subscore is 4. GCS verbal subscore is 5. GCS motor subscore is 6. Skin: Skin is warm and dry. No rash noted. Assessment: Plan: Randi was seen today for other and fatigue. Diagnoses and associated orders for this visit: - Environmental allergies - Fexofenadine 180 mg tab -- Take 1 Tab by mouth daily. We'll see if this helps her fatigue; if not consider further evaluation, testing, etc. - Plantar wart - See procedure note documented in this encounter Plan of Treatment Upcoming Encounters Date Type Department Care Team (Late st Contact Info) Description 02/03/2024 12:45 EDT Office Visit [facility] Ophthalmology [address] [address] Goldy Guzman MD [address] [place] [phone] documented as of this encounter Visit Diagnoses Diagnosis Environmental allergies- Primary Other allergy, other than to medicinal agents Plantar wart documented in this encounter Care Teams Taxation Economist Relationship Specialty Start Date End Date Star Vasquez MD [address] [place] [address] PCP - General 12/02/08 09/03/12 documented as of this encounter
--- OUTSIDE RECORDS SUMMARY | 2024-01-12 02:08 | XMS_ITS | Encounter Summary ---
Author Organization [facility] Address [address] [place] [address] Care Team Providers Care Vmware Administrator Name Role Phone Star Vasquez MD Primary Care Provider [phone] Encounter Details Date Type Department Care Team (Late st Contact Info) Description 03/06/2007 Before PRISM Converted Visit (Maple) [facility] - Maple conversion [address] [place] [address] Kristina Pritchard MD [address] [place] [phone] Social History Tobacco Use Types Packs/Day Years Used Date Smoking Tobacco: Never Assessed Sex and Gender Information Value Date Recorded Sex Assigned at Not on file Gender Identity Female 10/16/2020 9:54 EDT Sexual Orientation Not on file documented as of this encounter Progress Notes * Anirudh, Conv [facility] - 05/05/2009 1341 EST [facility] PROGRESS/FOLLOWUP NOTE - 03/06/2007 EYAD Brayn is here for followup from her appointment with Dr. Corral. She continues to have some backache with increased activity. Dr. Corral gave her some tramadol, which seems to help her shoulder pain, especially at night, which is about the only time she takes it. She still notes some fatigue. Notas active as she had hoped she would be. No problems with the increased Cozaar that we changed after last visit. She has not yet had a chance toget her labs done because she forgot that they were fasting. PHYSICAL EXAM Blood pressure 126/62. Pulse is 100. Weight 154 pounds. In general, she is in no acute distress. Arms have continued improved range of motion at the shoulder. No significant edemanoted. Gait appears better especially with the use of a cane. ASSESSMENT 1. Shoulder pain, which seems improved with continued activity and use of tramadol. PLAN Did renew her tramadol to do one to two up to twice a day, #60, with three refills. This also seemsto be helping her sleep. 2. Fatigue. PLAN 1. Encouraged her to try to get a decent night sleep and then try to remain active through the day.Increase her activity gradually and I think her endurance will improve and from there she should notice an improvement in her energy level. 2. Will see the patient back as previously planned, particularly in the fall for a flu shot. 3. She will get her labs done as soon as possible. Signed by Kristina Pritchard MD 03/09/2007 14:18 [facility]rit[facility] Kristina Pritchard MD P Job ID [id number] T: 2:55 P/jg Doc ID [id number] cc: Kristina Pritchard MD P Job ID [id number] P/jg Doc ID [id number] cc: documented in this encounter Plan of Treatment Upcoming Encounters Date Type Department Care Team (Late st Contact Info) Description 02/03/2024 12:45 EDT Office Visit [facility] Ophthalmology [facility] [address] [place] [address] Goldy Guzman MD [address] [place] [phone] documented as of this encounter Visit Diagnoses Not on filedocumented in this encounter Care Teams Vmware Administrator Relationship Specialty Start Date End Date Star Vasquez MD [address] [place] [address] PCP - General 12/02/08 09/03/12 documented as of this encounter
--- OUTSIDE RECORDS SUMMARY | 2024-01-12 02:08 | XMS_ITS | Encounter Summary ---
Author Organization [facility] Address [address] [place] [address] Care Team Providers Care Splitter Hand Name Role Phone Star Vasquez MD Primary Care Provider [phone] Reason for Visit * Reason Comments Closed Head Injury missed a step and fe ll 1 mo ago hitting back of head--no loc--continues with problems with balance and walking a straight line--had cva 4 y ago and unsure if things are worse now Encounter Details Date Type Department Care Team (Latest Contact Info) Description 05/31/2010 15:30 EST Office Visit [address] [place] [address] Star Vasquez MD [address] [place] [address] Closed head injury without loss of consciousness (Primary Dx); CVA (cerebral infarction) Social History Tobacco Use [...] Sign Reading Time Taken Comments Blood Pressure 149/71 05/31/2010 1610 EST Pulse 77 05/31/2010 1610 EST Temperature 36.7 ??C (98.1 ??F) 05/31/2010 1610 EST Respiratory Rate 18 05/31/2010 1610 EST Oxygen Saturation - - Inhaled Oxygen Concentration - - Weight 71.2 kg (157 lb) 05/31/2010 1610 EST Height - - Body Mass Index 29.42 03/30/2010 1402 EDT documented in this encounter Progress Notes * Star Vasquez MD - 05/31/2010 1630 EST Subjective: Patient ID: Randi Oswald is an 69 y.o. female. Chief Complaint Patient presents with ??? Closed Head Injury missed a step and fell 1 mo ago hitting back of head--no loc--continues with problems with balance and walking a straight line--had cva 4 y ago and unsure if things are worse now HPI Comments: She missed a step and fell 1 mo ago hitting back of head--no loc--continues with problems with balance and walking a straight line--had cva 4 y ago and unsure if things are worse now. Has not fallen,but standing up at times she has a little balance problems and has to hold onto something. Balance has never been great after stroke, but this week has been a little worse than usual. Some intermitten t visual changes. Does get some osteopathic manipulation of her neck. If she is really tired she gets a little weak with right side since the CVA. No changes from baseline. No facial droop. No confusion. No LOC. No syncope. Closed Head Injury Associated symptoms include headaches (very slight tinge for a second, a few times weekly, for months). Patient Active Problem List Diagnoses Code ??? [...] to encounter Medication Sig Dispense Refill ??? ibuprofen (MOTRIN) 600 mg tablet Take 1 Tab by mouth every 8 hours as needed for Pain. 60 Tab 2 ??? loratadine (CLARITIN) 10 mg tablet Take [...] Alcohol Use: Yes rare Review of Systems Eyes: Negative for double vision. Neurological: Positive for headaches (very slight tinge for a second, a few times weekly, for months). Negative for tingling and speech change. - See HPI Objective: BP 149/71 Pulse 77 Temp(Src) 36.7 ??C (98.1 ??F) (Oral) Resp 18 Wt 71.215 kg (157 lb) Physical Exam Constitutional: She is oriented to person, place, and time. She appears well- developed and well-nourished. Non-toxic appearance. HENT: Head: Normocephalic and atraumatic. Head is without raccoon's eyes, without Santacruz's sign, without contusion, without right periorbital erythema and without left periorbital erythema. Nose: No rhinorrhea. No epistaxis. Eyes: Conjunctivae are normal. Right conjunctiva has no hemorrhage. Left conjunctiva has no hemorrhage. No scleral icterus. Neck: Full passive range of motion without pain. Neck supple. Cardiovascular: Regular rhythm. Pulmonary/Chest: Effort normal. Neurological: She is alert and oriented to person, place, and time. She has normal strength. She displays no tremor. No cranial nerve deficit. She displays a negative Romberg sign. Gait normal. GCS eye subscore is 4. GCS verbal subscore is 5. GCS motor subscore is 6. Normal heel-gordon, finger-nose, and heel-toe walk. No pronator drift. Negative Romberg. Skin: Skin is warm and dry. No ecchymosis and no rash noted. Psychiatric: Her mood appears anxious (baseline). Assessment: Plan: Randi was seen today for closed head injury. Diagnoses and associated orders for this visit: Mild Closed head injury without loss of consciousness, history of Cva (cerebral infarction) based on history and exam, sounds like she is essentially at baseline with hx CVA. her neuro exam is reassuring and she has no symptoms of particular concern at this time, especially1 month out from the injury possible post-concussive syndrome, but I doubt bleed watchful waiting acceptable to Randi, RTC if sxs change/worsen documented in this encounter Plan of Treatment Upcoming Encounters Date Type Department Care Team (Late st Contact Info) Description 02/03/2024 12:[address] [facility] Ophthalmology [facility] [address] [place] [address] Goldy Guzman MD [address] [place] [phone] documented as of this encounter Visit Diagnoses Diagnosis Closed head injury without loss of consciousness- Primary Head injury, unspecified CVA (cerebral infarction) Unspecified cerebral artery occlusion with cerebral infarction documented in this encounter Care Teams Splitter Hand Relationship Specialty Start Date End Date Star Vasquez MD [address] [place] [phone] PCP - General 12/02/08 09/03/12 documented as of this encounter
--- OUTSIDE RECORDS SUMMARY | 2024-01-12 02:08 | XMS_ITS | Encounter Summary ---
Author Organization [facility] Address [address] [place] [address] Care Team Providers Care Four Horse Hitch Driver Name Role Phone Star Vasquez MD Primary Care Provider [phone] Encounter Details Date Type Department Care Team (Late st Contact Info) Description 09/12/2008 Before PRISM Converted Visit (Maple) [facility] - Maple conversion [address] [place] [address] Aurora Li, OT [address] [place] [phone] Social History Tobacco Use Types Packs/Day Years Used Date Smoking Tobacco: Never Assessed Sex and Gender Information Value Date Recorded Sex Assigned at Not on file Gender Identity Female 10/16/2020 9:54 EDT Sexual Orientation Not on file documented as of this encounter Progress Notes * Aurora Li, OT - 08/02/2009 0258 EST [facility] OCCUPATIONAL THERAPY PROGRESS NOTE SERVICE DATE: 09/21/2008 REFERRING PROVIDER: Estefani Rich MD PRIMARY CARE PROVIDER: Star Vasquez MD DIAGNOSIS/ICD9#/ONSET: Shoulder pain / 719.41 / sought care 08/31/2008. TOTAL NUMBER OF VISITS: 2. DATE OF FIRST SESSION: 09/12/2008. DATES OF SERVICE INCLUDED: 09/12/2008 through 09/21/2008. PRECAUTIONS: SUBJECTIVE Mrs. Oswald was seen initially on September 12, 2008 to trial a clavicular support to address her right upper extremityi pain. Regarding the figure-eight clavicular support that was provided at our initial session, I didnt wear the sling a lot. It made me sore. Upon further questioning, the patient felt that perhaps the soreness was muscular and did not remember having rubbing from the figure-eight support. She reportsthat since she was seen for her initial evaluation she went to the emergency department due to mental status changes. Differential diagnoses were TIA versus side effects from sleeping pills. Evidently, the patient had significant amnestic events. Today, the patient and I reviewed a note from Dr Rich that refers to the CTscan that was completed before I initially saw the patient, which does not identify subluxation of the right shoulder or a fracture. It mentions the possibility of an old trauma. It also mentions that there is a possibility of an injection at the sternoclavicular joint to reduce pain. OBJECTIVE Today in occupational therapy, the patient trialed a Neoprene shoulder support, which had limited effect. Due to her dropped shoulders and forward shoulder posture, today I instructed her in prone periscapular strengthening exercises and reviewed the importance of doing shoulder flexion self range of motion. The patient was provided with this exercise program verbally, by demonstration and with dave. Her was also present for that teaching. She demonstrated independence with the exercise program. ASSESSMENT Randi Oswald is appropriate for occupational therapy intervention due to shoulder pain. There is aquestion of what is causing the shoulder pain at this time. Two possibilities are residual apin from her stroke which left her with mild hemiparesis which is now resolved, or malalignment of her clavicle that is visually evident on the right. It is my recommendation that she follow up with Dr Gonzales,to have an orthopedic consultation regarding her right shoulder. Dr. Rich initiated consultation with Dr. Gonzales about Mrs. Oswald, but she has not yet met Dr. Gonzales. It is difficult to treat her rightshoulder with slings, clavicular supports, or exercise effectively without fully understanding the r oot cause of the pain. Mrs Oswald does not have a palpable subluxation at her glenohumeral joint, but continues to have pain superior to the scapular spine as well as in the glenohumeral joint toward the anterior aspect. She does not have sternoclavicularpain today. Mrs Oswald is independent with a basic periscapular strengthening program and a range of motion exercise. It is possible that she willnot achieve full shoulder flexion with the poor alignment of her clavicle as rotation of the clavicle is required to have full shoulder motion. We mutually agreed today that follow up with Dr Gonzales and continuing with the exercises is important and that we will follow up by phone in approximately four weeks. The patient also asked today about her right hand pain and that she lacks full composite flexion. Although this can be the result of a stroke, it is unlikely given the patienthigh level of motor return following her stroke and may be more of an arthritic process. I feel that she should also talk to Dr Gonzales about this. PLAN This chart is currently on hold until I talk with Mrs Oswald in four weeks. At that time, we will identify either the need to modify her home exercise plan or discontinue occupational therapy. Thank you for this referral. Signed by Aurora Li OT 10/02/2008 14:08 Aurora Li OT cc: MD Estefani Jarquin MD - Aurora Li OT A - PLF Job ID: [id number] Document ID: [id number] documented in this encounter Plan of Treatment Upcoming Encounters Date Type Department Care Team (Late st Contact Info) Description 02/03/2024 12:45 EDT Office Visit [facility] [address] [place] [address] Goldy Guzman MD [address] [place] [phone] documented as of this encounter Visit Diagnoses * Evaluation - Aurora Li OT - 08/02/2009 0241 EST [facility] OCCUPATIONAL THERAPY INITIAL EVALUATION SERVICE DATE: 09/12/2008 REFERRING PROVIDER: Estefani Rich MD PRIMARY CARE PROVIDER: Star Vasquez MD DIAGNOSIS/ICD9#/ONSET: Shoulder pain / 719.41 / sought care 08/31/2008 PRECAUTIONS: Routine SUBJECTIVE History of Present Illness: Randi Oswald is a 67-year-old woman, who comes to occupational therapytoday with a chief complaint of right shoulder pain. 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 At that time she underwent inpatient rehabilitation efforts and was discharged on August 23, 2006. She reports that her shoulder and collarbone area began giving her trouble shortly after she was home. She saw Dr Rich on August 31, 2008, who suggested that she come for occupational therapy to trial some different shoulder supports, clavicular supports and slings. Ms Oswald has been seeing an osteopathic physician to help with her shoulder pain and discomfort and reports that generally that has been helpful, but the effects do not last. She reports that most recently pulled traction through her right upper extremity away from the body has been helpful. Her tendency is to support her arm fully and hold it close to her body if her arm and shoulder feel painful. She does not recall any traumato her shoulder. PRIOR SERVICES Ms Oswald went through physical therapy both dry land and pool therapy for approximately one month in 2008. She reports that the shoulder pain is continuing to bother her. The patient reports that on this past Friday, 2008, that she had a CT scan of the right shoulder and clavicle and is waiting to hear the results of that. PAIN Location: Right shoulder. Intensity: Current 1, best 1-0, worst 7. Quality: Sharp, burning, aching and throbbing. Frequency: Daily/constant. Aggravated by: Difficult for patient to describe. Relieved by: Traction at times. The patient has been using her right hand dominantly. She reports that the pain varies in feeling, intensity and in some extent location. She reports that it is difficult for her to sleep at night due to her shoulder pain and it can be hard for her to find a comfortable position for her right arm. She reports that she has finger pain, but feels that it is possibly due to arthritis. She finds it di fficult to hold a pen and feels that her writing legibility is not at baseline. She was accompaniedto occupational therapy by her , Lonnie, today. OBJECTIVE Examination was performed today. RESTING VITAL SIGNS: BP 140/70 mmHg HR 76 bpm UPPER EXTREMITY FUNCTION: Ms Oswald is right-hand dominant. Upon visual examination she has malalignment of her right clavicle, which appears to protrude anteriorly. She has no palpable subluxation atthe glenohumeral joint today. RANGE OF MOTION: Passive left shoulder flexion is 166 degrees and passive right shoulder flexion is157 degrees, measured in supine. The patient has full shoulder abduction which is symmetrical. Passive internal rotation is 65 degrees on the left and 68 degrees on the right. External rotation is full bilaterally. The patient has normal and symmetrical bilateral upper extremity strength. Extermination Supervisor is 34 pounds in herright hand and 32 pounds in her left hand. The nine-hole peg test was completed to assess fine motor control. The patient completed it in 23 seconds with her left hand and 24 seconds with her right hand. INTERVENTIONS COMPLETED TODAY (10 minutes self care) Today, in addition, to her evaluation the patient was provided with a trial clavicular figure eightsupport. She was instructed in how to don it and asked to wear it part of each day, between now andwhen she next schedules her appointment with me unless it worsens the problem. The findings of [facility] evaluation were shared with her and her . The patient was instructed in self range of motion for right shoulder flexion and was fit with a figure of eight support and was instructed in doffing, donning and wearing. ASSESSMENT Randi Oswald is a pleasant 67-year-old woman, who has had a good motor recovery from a stroke thatshe suffered in 2006. Her strength and motion are generally good with the exception of a slight decrease in shoulder flexion on the right. Her clavicle positions are not symmetrical and she recently underwent a CT scan is waiting to hear the results of this. Dr. Rich mentioned a consultation with Dr. Gonzales. Until an orthopedic reason is identified or ruled out it will be difficult to treat this problem. Today I noticed some unusual mechanics when using her shoulder in that Ms Oswald tended, on the nine-hole peg test, to have a strong abduction pattern in order to dip her hand down to do the test, whereas on her left hand she held her humerus near her body and had good distal function. If infact this shoulder pain is stroke related, I am wondering if it is neuropathic pain, similar to that of a shoulder hand syndrome, although in my experience that would be unusual given her strong motor recovery and relatively good range of motion and lack of subluxation. I feel that Ms Oswald would benefit from outpatient occupational therapy to address shoulder mechanics that may be contributing to shoulder pain as well as to continue her trial of shoulder supports to reduce pain sincepain is impacting her on a daily basis at this time and impacting her ability to participate in home management tasks and with sleep. If the clavicular support is not helpful, and unless guided otherwise by herphysicians as she undergoes this current work up, I would try a neoprene shoulder support with a humeral cuff that could be worn beneath her clothing since she seems to feel comforted by holding the head of her humerus closer to the glenoid fossa. I feel that Ms Oswaldprognosis to reach the goals stated below is fair given the length of time since her stroke and difficulty in managing pain despiteintervention thus far. GOALS: (Four weeks) 1. The patient will report a decrease in pain by, at least, two for her worst pain on the visual analog, 0-10 scale. 2. The patient will verbally report improved comfort through the use of a sling or shoulder support. PLAN INTERVENTION/FREQUENCY Outpatient occupational therapy for two additional 60-minute visits over the next month as it fits into this patientschedule. I will check for results of the CT scan and any orthopedic results. We will trial additional shoulder supports and continue with instructions in proper shoulder biomechanicsand address exercises to improve her posture and shoulder alignment. Total Treatment Time: ?? Total Minutes In Timed Codes: ?? Thank you for this referral. Signed by Aurora Li OT 09/21/2008 16:58 Aurora Li OT cc: MD Estefani Jarquin MD - Aurora Li OT P - CTL Job ID: [id number] Document ID: [id number] Document ID: [id number] documented in this encounter Care Teams Four Horse Hitch Driver Relationship Specialty Start Date End Date Star Vasquez MD [address] [place] [phone] PCP - General 12/02/08 09/03/12 documented as of this encounter
--- OUTSIDE RECORDS SUMMARY | 2024-01-12 02:08 | XMS_ITS | Encounter Summary ---
Author Organization [facility] Address [address] [place] [address] Care Team Providers Care Extern Name Role Phone Star Vasquez MD Primary Care Provider [phone] Encounter Details Date Type Department Care Team (Late st Contact Info) Description 05/14/2010 Abstract Used for ABSTRACTING Data [phone] Blanca Jenkins MD [address] [place], [place] [phone] Social History Tobacco Use Types Packs/Day Years [...] Description 02/03/2024 12:45 EDT Office Visit [facility] Ophthalmology [facility] [address] [place] [address] Goldy Guzman MD [address] [place] [phone] documented as of this encounter Visit Diagnoses Not on filedocumented in this encounter Care Teams Extern Relationship Specialty Start Date End Date Star Vasquez MD [address] [place] [address] PCP - General 12/02/08 09/03/12 documented as of this encounter
--- OUTSIDE RECORDS SUMMARY | 2024-01-12 02:08 | XMS_ITS | Encounter Summary ---
Author Organization [facility] Address [address] [place] [address] Care Team Providers Care Winery Worker Name Role Phone Star Vasquez MD Primary Care Provider [phone] Encounter Details Date Type Department Care Team (Late st Contact Info) Description 01/15/2007 Before PRISM Converted Visit (Maple) [facility] - Maple conversion [address] [place] [address] Kristina Pritchard MD [address] [place] [phone] Social History Tobacco Use Types Packs/Day Years Used Date Smoking Tobacco: Never Assessed Sex and Gender Information Value Date Recorded Sex Assigned at Not on file Gender Identity Female 10/16/2020 9:54 EDT Sexual Orientation Not on file documented as of this encounter Progress Notes * Anirudh, Conv Tube Fitter - 05/06/2009 0926 EST [facility] PROGRESS/FOLLOWUP NOTE - 01/15/2007 SUBJECTIVE Mrs. Oswald comes in for followup. Things are fairly stable at home. She says her continues to drink and she is not sure how to help him. At one point in the past, it sounds like the taoist did an intervention and this was helpful for quite some time. He actually was not drinking at all while she was very ill but has slowly gotten back to a fair amount. Her right shoulder is improved with j ust home physical therapy. She does have some difficulty with elbow flexion and abduction of the shoulder, but she is going to be seeing Ellis in about three weeks and hopefully he will be able to help with this as well. The itching that she described last time has almost completely resolved and she wonders if it is related to some allergies that she has. She had a cataract removal last year and still has some visual disturbance and she is not sure if it is related to the stroke or a problem with the implant, so she would like a referral for further evaluation. Mammogram will be due in January 2007. Blood pressures continue to be on the mykanv-ojeq-ijtiwy side. OBJECTIVE On examination, blood pressure is 142/68;pulse is 76, weight 162 pounds. In general, she is in no acute distress. Range of motion of the shoulder is improved compared to last visit. Heart regular S1 and S2, lungs are clear to auscultation. Evaluation of the feet reveals no edema. She has improved movement of the right ankle without a brace on today. ASSESSMENT PROBLEM 1: Hypertension. Not adequately controlled especially given her recent stroke. PLAN Will increase her Cozaar to 100 mg daily with plans to check a comprehensive metabolic profile nextmonth. If she has any side effects, which were discussed with the patient, prior to that time she certainly can call. PROBLEM 2: Visual disturbance in eye. She has had cataract extraction done. Will make a referral to Dr. Benitez or Dr. Mai for evaluation. PROBLEM 3: Hyperlipidemia. Will recheck a fasting lipid panel at her convenience next month as we have not done one since she has been on the simvastatin. Her numbers were very good while she was on Lipitor. PROBLEM 4: Right shoulder abnormality. We will continue with her home physical therapy as well as followup with Dr. Corral. PROBLEM 5: She will be turning 67 next year, so at that point will give her Pneumovax. Tetanus will also be due at that time. Colonoscopy was performed last year and was normal. Will schedule her for a mammogram at her convenience after February 04, 2007. She has had osteopenia on DEXAscan performed last year. Will plan to repeat this with a mammogram in 2008. She will follow up in the fall for a flu shot or sooner if at all warranted. Thirty minutes was spent with this patient, greater than 50% of the time in counseling. Signed by Kristina Pritchard MD 01/25/2007 19:27 Jelena Pritchard, Yanci Pritchard, MD Kristina Pritchard MD P Job ID [id number] A/[facility] Doc ID [id number] cc: documented in this encounter Plan of Treatment Upcoming Encounters Date Type Department Care Team (Late st Contact Info) Description 02/03/2024 12:45 EDT Office Visit [facility] Ophthalmology [facility] [address] [place] [address] Goldy Guzman MD [address] [place] [phone] documented as of this encounter Visit Diagnoses Not on filedocumented in this encounter Care Teams Winery Worker Relationship Specialty Start Date End Date Star Vasquez MD [address] [place] [address] PCP - General 12/02/08 09/03/12 documented as of this encounter
--- OUTSIDE RECORDS SUMMARY | 2024-01-12 02:08 | XMS_ITS | Encounter Summary ---
Author Organization [facility] Address [address] [place] [address] Care Team Providers Care Content Checker Name Role Phone Star Vasquez MD Primary Care Provider [phone] Encounter Details Date Type Department Care Team (Late st Contact Info) Description 11/24/2007 Before PRISM Converted Visit (Maple) [facility] - Maple conversion [address] [place] [address] Junior Azevedo, YUMIKOC Social History Tobacco Use Types Packs/Day Years Used Date Smoking Tobacco: Never Assessed Sex and Gender Information Value Date Recorded Sex Assigned at Not on file Gender Identity Female 10/16/2020 9:54 EDT Sexual Orientation Not on file documented as of this encounter Progress Notes * Junior Azevedo - 03/27/2009 1523 EDT [facility] PROGRESS/FOLLOWUP NOTE - 11/24/2007 SUBJECTIVE Mrs. Oswald comes in today with complaint of worsening upper respiratory infection. She has been using an vyqu-tcj-arqhfvs nasal spray when her allergies kick up; however, it is not helping her at this time. She notes increased facial pain and pressure, an increase in her nasal discharge, which has become discolored and an forest economist productive cough. She denies any fever or chills. No chest pain or shortness of breath. She is developing a sore throat. ALLERGIES She has no medication allergies. OBJECTIVE Her temperature is 98.4. She is well appearing. Ambulated by use of a cane. ENT exam: TMs are normal. There is a moderate amount of nasal congestion with discomfort over the maxillary and frontal sinuses. Posterior pharyngeal erythema evident. No cervical adenopathy. Lungs are clear. Heart is regular without murmur. ASSESSMENT Progressive upper respiratory infection with a secondary sinusitis. PLAN 1. Continue baof-gkc-hsrwgzr nasal spray, as well as increase fluids and nasal steam. 2. Prescription is given for Zithromax Z-Jose. 3. Follow up with persistent or worsening symptoms. Signed by Junior Azevedo PA-C 11/30/2007 08:27 Junior Azevedo PA-C - Junior Azevedo PA-C Melodie ASHBY Job ID: [id number] Document ID: [id number] cc: - Junior Azevedo PA-C Melodie ashby Job ID: [id number] Document ID: [id number] cc: documented in this encounter Plan of Treatment Upcoming Encounters Date Type Department Care Team (Late st Contact Info) Description 02/03/2024 12:45 EDT Office Visit [facility] [address] [place] [address] Goldy Guzman MD [address] [place] [phone] documented as of this encounter Visit Diagnoses Not on filedocumented in this encounter Care Teams Content Checker Relationship Specialty Start Date End Date Star Vasquez MD [address] [place] [address] PCP - General 12/02/08 09/03/12 documented as of this encounter
--- OUTSIDE RECORDS SUMMARY | 2024-01-12 02:08 | XMS_ITS | Encounter Summary ---
Author Organization [facility] Address [address] [place] [address] Care Team Providers Care Head Coach Name Role Phone Star Vasquez MD Primary Care Provider [phone] Reason for Visit * Reason Onset Date Comments Medications Refill 04/26/2010 Encounter Details Date Type Department Care Team (Late st Contact Info) Description 04/26/2010 Refill [facility] Medicine [address] [place] [address] Leeanne Clements, MARÍA Medications Refill Social History Tobacco Use Types [...] as needed for Pain. 60 Tab 2 04/26/2010 07/02/2010 documented in this encounter Miscellaneous Notes * Telephone Encounter - Star Vasquez MD - 04/26/2010 2200 EDT I sent the Rx to the pharmacy. * Telephone Encounter - Leeanne Clements - 04/26/2010 1605 EDT [facility] --no in [facility] ? documented in this encounter Plan of Treatment Upcoming Encounters Date Type Department Care Team (Late st Contact Info) Description 02/03/2024 12:45 EDT Office Visit [facility] Ophthalmology [facility] [address] [place] [address] Goldy Guzman MD [address] [place] [phone] documented as of this encounter Visit Diagnoses Not on filedocumented in this encounter Care Teams Head Coach Relationship Specialty Start Date End Date Star Vasquez MD [address] [place] [phone] PCP - General 12/02/08 09/03/12 documented as of this encounter
--- OUTSIDE RECORDS SUMMARY | 2024-01-12 02:08 | XMS_ITS | Encounter Summary ---
Author Organization [facility] Address [address] [place] [address] Care Team Providers Care Community Relations Liaison Name Role Phone Star Vasquez MD Primary Care Provider [phone] Encounter Details Date Type Department Care Team (Late st Contact Info) Description 10/29/2006 Before PRISM Converted Visit (Maple) [facility] - Maple conversion [address] [place] [address] Jodie Paula, PT [address] [phone] Social History Tobacco Use Types Packs/Day Years [...] 12:45 EDT Office Visit [facility] Ophthalmology [facility] [address] [place] [address] Goldy Guzman MD [address] [place] [phone] documented as of this encounter Visit Diagnoses * Evaluation - Jodie Paula, PT - 05/02/2009 1029 EST [facility] PHYSICAL THERAPY BRACE CLINIC NOTE SERVICE DATE: 10/29/2006 REFERRING PROVIDER: Estefani Rich MD PRIMARY CARE PROVIDER: Kristina Pritchard MD DIAGNOSIS/ONSET/ICD9#: Left CVA with right hemiparesis/sought care 09-29-2006 PHYSICAL THERAPY PROBLEM LIST: 1. Orthotic fit-adjust/sought care 10-29-2006/V53.7 2. 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 She reports she will go to the osteopath next week about her SI joint pain. Reports only one fall when trying to get up quickly from a chair to run to her grandson, who she thought was in danger outside. Here today to evaluate bracing needs. OBJECTIVE Patient seen today in Brace Clinic. Current Brace: Patient has a loaner articulating AFO with [place] joint. Does not like the bulk ofbrace, but willing to use the brace if we think it is necessary. Motor: Hip flexion is 4/5 on the right. Hip extension in sitting, patient takes maximum resistance.Knee extension is 5/5. Knee flexion is 4/5 in sitting. Ankle is 5/5 throughout. Range of Motion: Positive 5 degrees of dorsiflexion on the right. Gait with single-point cane and shoes only: The right foot is slightly inverted during swing phase of gait with initial contact with the heel and lateral surface. The patient has quick foot flap and by mid stance right knee in hyperextending. Gait with single-point cane and articulating AFO: Initial contact was with the heel, the ankle is in neutral, in regards to inversion. There is increased forward tibial progression. There is no knee hyperextension noted. However, knee is less stable. Gait with Camp Toe-Off Brace: Right knee vacillating from knee flexion to knee hyperextension in stance. Gait with Semi-Solid AFO: Patient with better knee control in stance; however, knee still locking slightly and hyperextending occasionally with this brace. Brace Clinic Recommendation: Recommend patient trial PLSO-type brace as a loaner for another six toeight weeks with a reevaluation of need for long-term bracing. Will evaluate knee hyperextension atthat time to see if patient working out of thatgait pattern or if this is becoming more predominantwith a block to knee extension as patient not fond of articulating AFO, which would give the best bush pport against knee hyperextension. At this time a solid brace would probably be too resistive to ankle motion, limiting her stride ASSESSMENT This patient, with mild gait deviations, which put her at some risk for joint integrity at the kneewith hyperextension in stance and at the ankle with mild inversion noted at initial contact. However, patient reports no problems with falls or knee pain or ankle spraining with the use of brace without one month. Thus will loan a PLSO-type brace as patient not interesting in continuing with current loaner articulating AFO at this time. Will reevaluate in six to eight weeks to see if: 1. Right knee hyperextension becoming more predominant without brace intervention. 2. How safety has been with both use of PLSO and without. PLAN INTERVENTION/FREQUENCY Will loan out PLSO today after further fit changes by [facility] today. Will reevaluate in six to eight weeks. Thank you for this referral. Signed by Jodie Paula PT 11/04/2006 13:08 Jim Allison PT Jodie Paula PT cc: Estefani Rich MD - Jodie Paula PT A - CTL Job ID: [id number] Document ID: [id number] Document ID: [id number] documented in this encounter Care Teams Community Relations Liaison Relationship Specialty Start Date End Date Star Vasquez MD [address] [place] [phone] PCP - General 12/02/08 09/03/12 documented as of this encounter
--- OUTSIDE RECORDS SUMMARY | 2024-01-12 02:08 | XMS_ITS | Encounter Summary ---
Author Organization [facility] Address [address] [place] [address] Care Team Providers Care Prototype Special Build Name Role Phone Star Vasquez MD Primary Care Provider [phone] Reason for Visit * Reason Onset Date Comments Medications Refill 10/27/2009 Encounter Details Date Type Department Care Team (Late st Contact Info) Description 10/27/2009 Refill [facility] Family Medicine [address] [phone] Leeanne Clements RN Medications Refill Social History [...] Tab by mouth daily. 90 Tab 2 10/27/2009 12/08/2009 documented in this encounter Plan of Treatment Upcoming Encounters Date Type Department Care Team (Late st Contact Info) Description 02/03/2024 12:45 EDT Office Visit [facility] Ophthalmology [facility] [address] [place], [place] [address] Goldy Guzman MD [address] [place] [phone] documented as of this encounter Visit Diagnoses Not on filedocumented in this encounter Discontinued Medications Medication Sig Discontinue Reason Start Date End Da te losartan (COZAAR) 100 mg tablet Take 100 mg by mouth daily. Reorder 10/27/2009 documented as of this encounter Care Teams Prototype Special Build Relationship Specialty Start Date End Date Star Vasquez MD [address] [place] [address] PCP - General 12/02/08 09/03/12 documented as of this encounter
--- OUTSIDE RECORDS SUMMARY | 2024-01-12 02:08 | XMS_ITS | Encounter Summary ---
Author Organization [facility] Address [address] [place] [address] Care Team Providers Care Service Coordinator Elderly Facility Name Role Phone Star Vasquez MD Primary Care Provider [phone] Reason for Visit * Reason Onset Date Comments Medications Refill 11/16/2009 Encounter Details Date Type Department Care Team (Late st Contact Info) Description 11/16/2009 Refill [facility] Family Medicine [address] [place] [address] Leeanne Clements RN Medications Refill Social History [...] Office Visit [facility] Ophthalmology [facility] [address] [place] [address] Goldy Guzman MD [address] [place] [phone] documented as of this encounter Visit Diagnoses Not on filedocumented in this encounter Care Teams Service Coordinator Elderly Facility Relationship Specialty Start Date End Date Star Vasquez MD [address] [place] [address] PCP - General 12/02/08 09/03/12 documented as of this encounter
--- OUTSIDE RECORDS SUMMARY | 2024-01-12 02:08 | XMS_ITS | Encounter Summary ---
Author Organization [facility] Address [address] [place] [address] Care Team Providers Care Admin Secretary Name Role Phone Star Vasquez MD Primary Care Provider [phone] Reason for Visit * Reason Comments Other has something king e in her private area,knows there is something not right Encounter Details Date Type Department Care Team (Late st Contact Info) Description 09/18/2009 13:00 EDT Office Visit [facility] Medicine [facility] [address] [facility] [address] [phone] Yessenia Gan, ELECTRONIC TEST TECHNICIAN [address] [facility] [address] [address] Skin tag (Primary Dx) Social History Tobacco Use Types [...] Sign Reading Time Taken Comments Blood Pressure 120/60 09/18/2009 1308 EDT Pulse 62 09/18/2009 1308 EDT Temperature - - Respiratory Rate - - Oxygen Saturation - - Inhaled Oxygen Concentration - - Weight - - Height - - Body Mass Index - - documented in this encounter Progress Notes * Yessenia Gan, CABLE CUTTER AND SWAGER - 09/21/2009 6723 EDT [facility] PROGRESS/FOLLOWUP NOTE - 09/18/2009 SUBJECTIVE: Randi is here because she felt something strange in her vaginal area, nothing that hurts her or anything like that, just a little different. Smooth tissue versus coarser tissue. OBJECTIVE: Blood pressure 120/60, pulse 62. Vaginal exam: Everything appears to be normal. There michael little skin tag associated with her urethral opening but not a polyp. No other discharge. No other lesions. ASSESSMENT: Normal exam except for the skin tag. PLAN: Reassurance given her today. There are no issues going on. She understood our discussion and concurred with the plan. Electronically Signed by KIMBERLY Blanco 09/21/2009 16:54 Dictated by: KIMBERLY Blanco - KIMBERLY Blanco A - LBR Job ID: Doc ID: [id number] Ext Doc ID: [id number] cc: * Yessenia Gan NP - 09/18/2009 1441 EDT This office note has been dictated. documented in this encounter Plan of Treatment Upcoming Encounters Date Type Department Care Team (Late st Contact Info) Description 02/03/2024 12:45 EDT Office Visit [facility] Ophthalmology [address] [address] Goldy Guzman MD [address] [place] [phone] documented as of this encounter Visit Diagnoses Diagnosis Skin tag- Primary Unspecified hypertrophic and atrophic condition of skin documented in this encounter Discontinued Medications Medication Sig Discontinue Reason Start Date End Da te amoxicillin (AMOXIL) 250 mg capsule Take 1 Cap by mouth 3 times daily. Therapy completed 07/26/2009 09/18/2009 documented as of this encounter Historical Medications * This list may reflect changes made after this encounter. Medication Sig Dispensed Refills Start Date End Date Cod Liver Oil Cap Take by mouth. 04/25/20 11 added in this encounter Care Teams Admin Secretary Relationship Specialty Start Date End Date Star Vasquez MD [address] [place] [address] PCP - General 12/02/08 09/03/12 documented as of this encounter
--- OUTSIDE RECORDS SUMMARY | 2024-01-12 02:08 | XMS_ITS | Encounter Summary ---
Author Organization [facility] Address [address] [place] [address] Care Team Providers Care Electrical Controls Technician Name Role Phone Star Vasquez MD Primary Care Provider [phone] Reason for Visit * Reason Comments Procedure here to have wart re moved from foot Encounter Details Date Type Department Care Team (Late st Contact Info) Description 11/30/2009 10:45 EDT Office Visit [facility] Family Medicine [address] [place] [address] Star Vasquez MD [address] [place] [phone] Plantar vipin (Primary Dx) Social History Tobacco Use Types [...] Sign Reading Time Taken Comments Blood Pressure 118/57 11/30/2009 1055 EDT Pulse 80 11/30/2009 1055 EDT Temperature - - Respiratory Rate 18 11/30/2009 1055 EDT Oxygen Saturation - - Inhaled Oxygen Concentration - - Weight 70.5 kg (155 lb 6.4 oz) 11/30/2009 1055 E DT Height 155.6 cm (5' 1.25) 11/30/2009 1055 EDT Body Mass Index 29.12 11/30/2009 1055 EDT documented in this encounter Progress Notes * Star Vasquez MD - 12/01/2009 1529 EDT Pre-op diagnosis/Post-op diagnosis: wart(s) Consent: Potential risks and expected benefits were discussed. All questions were answered. Verbal consent was obtained directly from the patient. Time-Out: Proper patient, procedure, and location of lesion(s) were reviewed directly with the patient at the time of the procedure. Prep: Alcohol Description: Patient was sitting up. 1 wart(s) identified on left foot - plantar surface of forefoot. Lesions were sharply debrided using a #15 blade. Liquid nitrogen was applied to the warts using acryogun through three freeze-thaw cycles. EBL: None Instructions:wound healing as expected documented in this encounter Plan of Treatment Upcoming Encounters Date Type Department Care Team (Late st Contact Info) Description 02/03/2024 12:45 EDT Office Visit [facility] Ophthalmology [facility] [address] [place] [address] Goldy Guzman MD [address] [place] [phone] documented as of this encounter Visit Diagnoses Diagnosis Plantar wart- Primary documented in this encounter Care Teams Electrical Controls Technician Relationship Specialty Start Date End Date Star Vasquez MD [address] [place] [phone] PCP - General 12/02/08 09/03/12 documented as of this encounter
--- OUTSIDE RECORDS SUMMARY | 2024-01-12 02:08 | XMS_ITS | Encounter Summary ---
Author Organization [facility] Address [address] [place] [address] Care Team Providers Care Publicity Director Name Role Phone Star Vasquez MD Primary Care Provider [phone] Encounter Details Date Type Department Care Team (Late st Contact Info) Description 10/13/2009 Abstract [facility] [address] [place] [address] Star Vasquez MD [address] [place] [phone] Abnormality of gait; Pain in joint, shoulder region Social History Tobacco Use Types Packs/Day Years [...] EDT Office Visit [facility] [address] [place] [address] Goldy Guzman MD [address] [place] [phone] documented as of this encounter Visit Diagnoses Diagnosis Abnormality of gait Pain in joint, shoulder region documented in this encounter Care Teams Publicity Director Relationship Specialty Start Date End Date Star Vasquez MD [address] [place] [address] PCP - General 12/02/08 09/03/12 documented as of this encounter
--- OUTSIDE RECORDS SUMMARY | 2024-01-12 02:08 | XMS_ITS | Encounter Summary ---
Author Organization [facility] Address [address] [place] [address] Care Team Providers Care Range Management Specialist Name Role Phone Unavailable Primary Care Provider Unavailabl e Encounter Details Date Type Department Care Team (Latest Contact Info) Description 10/20/2006 9:36 EDT - 10/20/2006 11:59 EDT Hospital Encounter [facility] [address] [place] [address] Kwabena Miranda MD Discharge Disposition: Auto Discharge Social History [...] Info) Description 02/03/2024 12:45 EDT Office Visit [facility] [address] [place] [address] Goldy Guzman MD [address] [place] [phone] documented as of this encounter Procedures Procedure Name Priority Date/Time Associated Diagnosis Comments DOBUTAMINE STRESS ECHOCARDIOGRAM 10/20/2006 10:56 EDT documented in this encounter Results * DOBUTAMINE STRESS ECHOCARDIOGRAM (10/20/2006 10:56 EDT) Anatomical Region Laterality Modality Other 10/20/2006 10:5 6 EDT Narrative 12/28/2008 12:58 EDT [facility] [address] [place] [address] Interpreting Group: [facility] [address] [place] [address] Stress Study Height: ? 62 in ( 157 cm ) S/D Pressure: Patient status: Outpatient Weight: ? 175 lb ( 79.55 kg ) BSA: ?1.8 m^2 Performing MD: ??Ronn Howell MD Pediatric Oncology Nurse: ?C[employer] Ordering MD: ?Kwabena Miranda MD Attending MD: ?? Kwabena Miranda MD Admitting MD: ?? Kwabena Miranda MD *STUDY CONCLUSIONS* *SUMMARY*: - ??Stress results : Target heart rate was achieved. The stress ECG was normal. - ??Baseline : Estimated left ventricular ejection fraction was in the range of 60 % to 65 %. - ??Peak stress : There were no left ventricular regional wall motion abnormalities at peak stress (40 mcgr Dobutamine ) There was an appropriate reduction in left ventricular size. There was an appropriate augmentation in LV function. *IMPRESSIONS*: - ??Normal study after pharmacologic stress. - ??Left ventricular systolic function was normal. *HISTORY AND INDICATIONS* *DIAGNOSES SUPPORTING MEDICAL NECESSITY*: CVA 436 *REST ECG*: Normal sinus rhythm. *STUDY INFORMATION*: Previous echo on 08/11/06. This study was interpreted by [facility]. Dr. Ronn Howell supervised and was readily available during the procedure. The procedure was started at 11:15:46. The procedure ended at 11:50:57. Linda 5 A dobutamine infusion pharmacologic stress test was performed. Stress and rest echocardiographic evaluation with 2D imaging was performed from multiple acoustic windows for evaluation of ventricular function. This was a routine echocardiographic study. *STRESS RESULTS* *DOBUTAMINE PROTOCOL*: HR bpm SBP mmHg DBP mmHg ST change 40 mcg/kg/min 132 ?150 ?45 ? none The patient also performed low level exercise with leg lifts. *STRESS RESULTS*: Maximal heart rate during stress was 132 bpm. The heart rate response to stress was normal. There was normal resting blood pressure with an appropriate response to stress. The rate-pressure product for the peak heart rate and blood pressure was [address]. The stress test was terminated due to achievement of target heart rate. The stress ECG was normal. *IMAGING DATA* *STRESS 2D ECHOCARDIOGRAPHIC RESULTS*: *BASELINE*: There were no left ventricular regional wall motion abnormalities at baseline. Estimated left ventricular ejection fraction was in the range of 60 % to 65 %. *LOW DOSE*: There was an appropriate augmentation in LV function. *PEAK STRESS*: There were no left ventricular regional wall motion abnormalities at peak stress (40 mcgr Dobutamine ) There was an appropriate reduction in left ventricular size. There was an appropriate augmentation in LV function. Reviewed and signed by Ronn Howell MD Confirmed 20-Oct-2006 13:01:32 Procedure Note Ronn Howell MD - 12/28/2008 [facility] Cardiac Ultrasound Laboratory [address] [place] [address] Interpreting Group: [facility] [address] [address] Stress Study Height: 62 in ( 157 cm ) S/D Pressure: Patient status: Outpatient Weight: 175 lb ( 79.55 kg ) BSA: 1.8 m^2 Performing MD: Ronn Howell MD Pediatric Oncology Nurse: Ranjana Diaz Ordering MD: Kwabena Miranda MD Attending MD: Kwabena Miranda MD Admitting MD: Kwabena Miranda MD *STUDY CONCLUSIONS* *SUMMARY*: - Stress results : Target heart rate was achieved. The stress ECG was normal. - Baseline : Estimated left ventricular ejection fraction was in therange of 60 % to 65 %. - Peak stress : There were no left ventricular regional wall motion abnormalities at peak stress (40 mcgr Dobutamine ) There was an appropriate reduction in left ventricular size. There was an appropriate augmentation in LV function. *IMPRESSIONS*: - Normal study after pharmacologic stress. - Left ventricular systolic function was normal. *HISTORY AND INDICATIONS* *DIAGNOSES SUPPORTING MEDICAL NECESSITY*: CVA 436 *REST ECG*: Normal sinus rhythm. *STUDY INFORMATION*: Previous echo on 08/11/06. This study was interpreted by [facility] at [facility]. Dr. Ronn Howell supervised and was readily available during the procedure. The procedure was started at 11:15:46. The procedure ended at 11:50:57. Linda 5 A dobutamine infusion pharmacologic stress test was performed. Stress and rest echocardiographic evaluation with 2D imaging was performed from multiple acoustic windows for evaluation of ventricular function. Thiswas a routine echocardiographic study. *STRESS RESULTS* *DOBUTAMINE PROTOCOL*: HR bpm SBP mmHg DBP mmHg ST change 40 mcg/kg/min 132 150 45 none The patient also performed low level exercise with leg lifts. *STRESS RESULTS*: Maximal heart rate during stress was 132 bpm. The heart rate response to stress was normal. There was normal resting blood pressure with an appropriate response to stress. The rate-pressure product for the peak heart rate and blood pressure was [address]. The stress test was terminateddue to achievement of target heart rate. The stress ECG was normal. *IMAGING DATA* *STRESS 2D ECHOCARDIOGRAPHIC RESULTS*: *BASELINE*: There were no left ventricular regional wall motion abnormalities at baseline. Estimated left ventricular ejection fractionwas in the range of 60 % to 65 %. *LOW DOSE*: There was an appropriate augmentation in LV function. *PEAK STRESS*: There were no left ventricular regional wall motion abnormalities at peak stress (40 mcgr Dobutamine ) There was anappropriate reduction in left ventricular size. There was an appropriateaugmentation in LV function. Reviewed and signed by Ronn Howell MD Confirmed 20-Oct-2006 13:01:32 Kwabena Miranda MD CARDIAC ECHO ORDERA BLES documented in this encounter Visit Diagnoses Not on filedocumented in this encounter
--- OUTSIDE RECORDS SUMMARY | 2024-01-12 02:08 | XMS_ITS | Encounter Summary ---
Author Organization [facility] Address [address] [place] [address] Care Team Providers Care Multimedia Journalist Name Role Phone Star Vasquez MD Primary Care Provider [phone] Reason for Visit * Reason Comments Sinusitis symptoms about a wee k or more Encounter Details Date Type Department Care Team (Late st Contact Info) Description 07/26/2009 16:20 EST Office Visit [facility] [address] [place], [place] [id number] Yessenia Gan FNP [address] [facility] [facility] [address] [place], [place] [address] Sinusitis (Primary Dx) Social History Tobacco Use [...] Sign Reading Time Taken Comments Blood Pressure 130/86 07/26/2009 1646 EST Pulse 80 07/26/2009 1646 EST Temperature 37.3 ??C (99.2 ??F) 07/26/2009 1646 EST Respiratory Rate 16 07/26/2009 1646 EST Oxygen Saturation - - Inhaled Oxygen Concentration - - Weight 68.9 kg (152 lb) 07/26/2009 1646 EST Height - - Body Mass Index - - documented in this encounter Patient Instructions * Patient Instructions* Yessenia Gan NP - 07/26/2009 17:28 EST Increase fluids, do steam therapy. Nasal Lavage as needed. Amoxicillin 250 three times a day. Follow up as needed documented in this encounter Ordered Prescriptions Prescription Sig Dispensed Refills Start Date End Da te amoxicillin (AMOXIL) 250 mg capsule Take 1 Cap by mouth 3 times daily. 30 Cap 0 07/26/2009 09/18/2009 documented in this encounter Progress Notes * Yessenia Gan NP - 07/26/2009 2103 EST Subjective: Patient ID: Randi Oswald is an 68 y.o. female. Chief Complaint: Sinusitis The history is provided by the patient. This is a new problem. The current episode started 1 to 4 weeks ago. The problem has been waxing and waning. There has been no fever. Associated symptoms include congestion, sinus pressure and sore throat. Treatments Tried: nasal sprays, other provider,unknown by pt. Past Medical History Diagnosis Date ??? Allergy ??? Anemia ??? Anxiety ??? Cataract ??? Unspecified cerebral artery occlusion with cerebral infarction ??? Chronic kidney disease ??? GERD (gastroesophageal reflux disease) ??? Neuromuscular disorder Family History Problem Relation ??? * Mother [place] 60 d 70's ??? Cancer Father ??? Cancer Maternal Aunt ??? Cancer Maternal Grandfather colon Current outpatient prescriptions Medication Sig Dispense Refill ??? dipyridamole-aspirin (AGGRENOX) [...] mcg TbSR Take by mouth daily. ??? losartan (COZAAR) 100 mg tablet Take 100 mg by mouth daily. ??? gabapentin (NEURONTIN) 300 mg capsule Take 300 mg by mouth at bedtime. ??? TRAMADOL HCL (TRAMADOL ORAL) Take by mouth as needed. To be prescribed by Dr. Corral only ??? amoxicillin (AMOXIL) 250 mg capsule Take 1 Cap by mouth 3 times daily. 30 Cap 0 No Active Allergies History Social History ??? Marital Status: Spouse [...] History Narrative ??? No narrative on file Review of Systems HENT: Positive for congestion, sore throat and sinus pressure. Objective: Physical Exam Constitutional: She appears well-developed. HENT: Head: Normocephalic and atraumatic. Right Ear: External ear normal. Left Ear: External ear normal. Nose: Nose normal. Mouth/Throat: Oropharynx is clear and moist. Eyes: Right eye exhibits no discharge. Neck: Neck supple. Lymphadenopathy: She has cervical adenopathy (right side tender). Assessment: Encounter Diagnoses Code Name Primary? Qualifier ??? 473.9G Sinusitis Yes Plan: See [pt. instructions documented in this encounter Plan of Treatment Upcoming Encounters Date Type Department Care Team (Late st Contact Info) Description 02/03/2024 12:45 EDT Office Visit [facility] Ophthalmology [facility] [address] [place] [address] Goldy Guzman MD [address] [place] [address] documented as of this encounter Visit Diagnoses Diagnosis Sinusitis- Primary Unspecified sinusitis (chronic) documented in this encounter Care Teams Multimedia Journalist Relationship Specialty Start Date End Date Star Vasquez MD [address] [place] [id number] PCP - General 12/02/08 09/03/12 documented as of this encounter
--- OUTSIDE RECORDS SUMMARY | 2024-01-12 02:09 | XMS_ITS | Encounter Summary ---
Author Organization [facility] Address [facility] [place] [address] Care Team Providers Care Actuarial Trainee Name Role Phone Star Vasquez MD Primary Care Provider [phone] Encounter Details Date Type Department Care Team (Late st Contact Info) Description 08/09/2006 [place] [address] Star Gross MD [facility] [place] [address] Social History Tobacco Use Types Packs/Day Years Used Date Smoking Tobacco: Never Assessed Sex and Gender Information Value Date Recorded Sex Assigned at Not on file Gender Identity Not on file Sexual Orientation Not on file documented as of this encounter Plan of Treatment Not on file documented as of this encounter Procedures Procedure Name Priority Date/Time Associated Diagnosis Comments FILM LIBRARY STORAGE ONLY MR HEAD Routine 08/09/2006 8:56 PM EST documented in this encounter Results * FILM LIBRARY- STORAGE ONLY MR HEAD (08/09/2006 8:56 PM EST) 08/09/2006 8:56 PM EST Narrative RAD - 01/11/2014 10:16 AM EDT This is a non-reportable exam. Procedure Note Zaki Younger - 01/11/2014 This is a non-reportable exam. Star Gross MD IMG FILM LIBRARY O RDERABLES [facility] [address] [facility] [place] [address] documented in this encounter Visit Diagnoses Not on filedocumented in this encounter Care Teams Actuarial Trainee Relationship Specialty Start Date End Date Star Vasquez MD [facility] [address] [place] [address] PCP - General 01/02/12 07/11/13 documented as of this encounter
--- OUTSIDE RECORDS SUMMARY | 2024-01-12 02:09 | XMS_ITS | Encounter Summary ---
Author Organization [facility] Address [facility] [place] [address] Care Team Providers Care Commercial Collections Driver Name Role Phone Izzy Jackson MD Primary Care Provider [phone] Reason for Visit * Reason Comments Cognitive Decline neuropsych eval Encounter Details Date Type Department Care Team (Late st Contact Info) Description 10/11/2013 8:30 AM EDT Office Visit Psychiatry and Behavioral Health at [facility] [address] Junior Mills, PhD PSYCHIATRY DEPT. [facility] [place] [address] [place] [id number] Cerebral infarction (Primary Dx); Cognitive disorder Social History Tobacco Use Types Packs/Day Years Used Date Smoking Tobacco: Former Comments:quit 40 years ago Sex and Gender Information Value Date Recorded Sex Assigned at Not on file Gender Identity Not on file Sexual Orientation Not on file documented as of this encounter Progress Notes * Junior Mills, PhD - 10/20/2013 10:14 AM EDT Images from the original note were not included. CONFIDENTIAL NEUROPSYCHOLOGICAL EVALUATION Patient's Name: Randi Oswald MR#: [id number] Date of Evaluation: 10/11/2013 Date of : 1940 Age: 72 years Sex: Female Education: 12 years Occupation: Retired Lateral Dominance: Right-handed Referral Source: Vincenzo Fay M.D. REASON FOR REFERRAL This is Randi Oswald[place] [facility] [place]. She was referred for assessmentof her current cognitive strengths and weaknesses in the context of a history of stroke. As her history is well known to you, it will be only briefly reviewed for our files. Please refer to her medical records for additional information. Background information was obtained from Ms. Oswald who appeared to be a good historian and from a review of relevant medical records. BACKGROUND HISTORY Neuropsychological Functioning: Ms. Oswald reported experiencing the onset of cognitive problems subsequent to a stroke in 2006. These have included problems with memory, general slowing of abilities to process information, as well as word finding and spatial difficulties. She indicated that these problems have been fluctuating in severity over the past few years. She denied any difficulties with ADLs, although she has left the stove on and walked out of the house a couple of times, and sometimes forgets to take her medications. Finally, she mentioned that it took her an unusually long time (about one month) to finish her taxes this year. She stated she does not drive much and feels that sheneeds to be much more careful than before. Medical History: In addition to the above, Ms. Oswald???s medical history is significant for hypertension and stroke. A CT carotid angiogram performed on 08/09/2006 found no aneurysm or significant stenosis. An MRI of the brain without contrast on the same day showed an acute infarct in the posterior limb of the internal capsule and deep white matter of the left frontal lobe, adjacent to the body of the left lateral ventricle. Otherwise, the ventricles and sulci were judged to be age-appropriateand no midline shift was noted. 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 CT without contrast on 09/16/2008 was read to show evidence of old lacunar infarcts in the putamen, but no sign of an intracranial bleed. 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 Psychiatric History: Psychiatric history is reportedly unremarkable. She described her current moodand appetite as ???good?? . However, she reported experiencing regular daytime fatigue despite achieving 8-9 hours of sleep on a typical night. She takes regular naps, which seem to help. Alcohol and Substance Use: Ms. Oswald denied any history of alcohol or substance abuse. Family Medical and Psychiatric History: Per Ms. Oswald, family history is significant for cancer andheart disease. Developmental and Educational/Occupational History: Ms. Oswald indicated that to her knowledge her gestation, , and winch stripper physical development were normal. 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 She retired around 1999, but wasn???t able to specify the exact date. Social History: Ms. Oswald lives in [place], [place] by herself, and her son lives next door. Medication Status: At the time of this evaluation, Ms. Oswald was prescribed atenolol (25 mg), Ultram (50 mg), losartan (50 mg), omeprazole (20 mg), simvastatin (40 mg), Aggrenox (200-25 mg/12hr) and trazodone (100 mg). BEHAVIORAL OBSERVATIONS Ms. Oswald arrived on time for her appointment accompanied by her daughter, Zulema. She was well-groomed and casually dressed. She was alert and oriented to person, place, and time. She showed no apparent sign of physical or emotional distress. She understood the purpose of the evaluation, and demonstrated intact comprehension of all questions and task instructions. Spontaneous speech was normal for rate and volume with no evidence of paraphasic errors or word finding difficulty. Gross motor functions appeared intact to informal observation. Thought processes were linear and goal-directed, and of normal content. Mood was described as ???good?? and affect was observed to be appropriate tothe testing context. An excellent rapport with the examiner was quickly developed and easily maintained. Ms. Oswald was very pleasant, cooperative and appeared motivated throughout testing. Scores on performance validity tests (PVT) were generally within normal limits, suggesting adequate cognitive effort and task persistence. Therefore, the present results are judged to be a valid reflection of current level of neuropsychological functioning. PROCEDURES ADMINISTERED Clinical Interview; [employer] (ACS, selected subtests); Brownlee Anxiety Inventory (THOM); Brownlee Depression Inventory, 2nd edition (BDI-II); [place] Naming Test (BNT); [place] Verbal Learning Test, 2nd edition (CVLT-II); Clock Drawing Test (CDT); Comprehension of Complex Ideational Material (from [place] Diagnostic Aphasia Examination); Tejinder??? Continuous Performance Test, 2nd edition (CPT-II); Controlled Oral Word Association Test (COWAT); Jana-Hernandez Executive Function System(D-KEFS, selected subtestsFinger Tapping Test; Grooved Pegboard Test; Mini Mental Status Exam (MMSE); Charles 15-Item Test; Charles Complex Figure Test (RCFT); [place] Making test (A & B); TOMM; Jaimie???s Recognition Memory Test (RMT-Words); Wide Range Achievement Test, 4th edition, Reading subtest (WRAT-4); [place] Card Sorting Test (WCST); Semaj Adult Intelligence Scale, 4th edition (WAIS-IV, selected subtests); Semaj Memory Scale, 4th edition (WMS-IV, selected subtests). TEST RESULTS Note: Descriptors are based on appropriate normative data and the chart below, and are adjusted based on clinical judgment. DESCRIPTOR IQ & Index Scaled Score T-Score z-Score Percentile Very Superior ? 130 16 to 19 ? 70 ? 2.0 ? 98 Superior 120 to 129 14 to 15 64 to 69 1.3 to 1.99 91 to 97 High Average 110- 119 12 to 13 57 to 63 0.66 to 1.29 75 to 90 Average 90 to 109 8 to 11 44 to 56 -0.69 to 0.65 25 to 74 Low Average 80 to 89 6 to 7 37 to 43 -1.39 to -0.7 10 to 24 Borderline 70 to 79 4 to 5 30 to 36 -2.0 to -1.4 2 to 9 Extremely Low ? 69 ? 3 ? 30 ? -2.0 ? 2 Mildly Impaired 2 to 3 24 to 30 - 2.69 to -2.0 0.38 to 1.9 Moderately Impaired 1 20 to 23 -3.09 to -2.7 0.13 to 0.37 Severely Impaired < 1 ? 19 ? -3.1 ? 0.12 Cognitive Screening Raw Score Descriptor RANGE MMSE 25/30 Impaired Raw Score General Intelligence Scaled Score Descriptor RANGE WAIS-IV Full Scale IQ 96 Average General Ability Index (GAI) 97 Average Verbal Comprehension Index 100 Average Similarities 9 Average Vocabulary 11 Average Perceptual Reasoning Index 94 Average Block Design 7 Low Average Matrix Reasoning 11 Average Working Memory Index 92 Average Digit Span 7 Low Average Arithmetic 10 Average Processing Speed Index 100 Average Symbol Search 10 Average Coding 10 Average Memory Semaj Memory Scale-IV Standard Score Immediate Memory Index 106 Average Delayed Memory Index 109 Average Auditory Memory Index 107 Average Visual Memory Index 108 Average Raw Score Scaled Score Logical Memory I 29/53 9 Average Logical Memory II 10 Average Recognition 26-50% Average Visual Reproduction I 11 Average Visual Reproduction II 12 High Average Recognition 7/ > 75% High Average Verbal Paired Associates I 13 High Average Verbal Paired Associates II 02/06 13 High Average Recognition 30/30 > 75% High Average RCFT Raw Score T-score Copy 29.0/36 11-16 % Low Average Time to Copy (secs) 115 > 16% Within Normal Limits Immediate Recall 16.5/36 57 High Average Delayed Recall 19.0/36 63 High Average Recognition 1924 44 Average California Verbal Learning Test-II Raw Score T/z-score Total Trials 1-5 48/80 55 Average Trials 1-5 9-72-63-10-11 //0/0/0 Average/High Average List B 16 2 Very Superior Short-Delay Free Recall 16 0 Average Short-Delay Cued Recall 13/16 0.5 Average Long Delayed Free Recall 12/16 0.5 Average Long Delayed Cued Recall 16 -0.5 Average Recognition 15/16 0 Average False Positive Errors 0 1 High Average Discriminability 3.7 1 High Average Total Intrusions 2 0.5 Average Forced-Choice Recognition - Within Normal Limits Attention/Executive Functioning WAIS-IV Digit Span: Max Span BRMaxSpan* SS Total Score - - 7 Low Average Forward 5 90 7 Low Average Backward 3 95 5 Borderline Sequencing 6 52 10 Average *Base Rate of a Given Maximum Span in the Normative Sample (% Scoring At or Above That Span) [place] Making Test Raw Score Errors T-scoreEdCorr A 25 0 59 High Average B 72 0 58 High Average T-score T-score Tejinder??? CPT-II Early Late Omissions 60 Clinical Range 60 Clinical Range Commissions 49 Within Normal Limits 56 Within Normal Limits Hit RT 62 Clinical Range 57 Within Normal Limits Hit RT SE 60 Clinical Range 88 Clinical Range Variability 43 Within Normal Limits 85 Clinical Range d??? 52 Within Normal Limits 53 Within Normal Limits Response Style (Beta) 40 Good Performance 46 Within Normal Limits Perseverations 46 Within Normal Limits 63 Clinical Range Hit RT Block Change 34 Good Performance 47 Within Normal Limits Hit SE Block Change 45 Within Normal Limits 22 Good Performance Hit RT ELIZABETH Change 62 Clinical Range 65 Clinical Range Hit SE ELIZABETH Change 49 Within Normal Limits 93 Clinical Range Wisconsin Card Sorting Test Raw Score T-scoreEdCorr Categories Completed (Trials) 3/6 (128) > 16% Within Normal Limits Total Errors 49 46 Average Perseverative Responses 41 43 Low Average Perseverative Errors 31 45 Average Nonperseverative Errors 18 47 Average % Conceptual Level Responses 45 45 Average Failure to Maintain Set 1 > 16% Within Normal Limits Unique Errors 0 - Within Normal Limits Language Raw Score T-scoreEdCorr Sentence Comprehension 12 35 Borderline Confrontation Naming 57/60 60 High Average WRAT-4 Reading Recognition 59/70 SS = 99 Average Verbal Fluency Tests Raw Score SS T-scoreEdCorr Letter Total Correct (FAS) 50 13 61 High Average COWAT (CFL) 60 15 68 Superior Animal Fluency 17 9 49 Average Visuospatial Raw Score Charles Complex Figure Test Copy 29.0/36 Low Average Clock Drawing Test 10 Within Normal Limits Sensory-Motor Functioning Mean Raw Score Finger Tapping Test T-scoreEdCorr Dominant Hand 30.2 36 Borderline Non-Dominant Hand 38.4 51 Average Grooved Pegboard Test Raw Score T-scoreEdCorr Dominant Hand 94???, 0 drops 41 Low Average Non-Dominant Hand 98???, 0 drops 46 Average Mood Screening: Raw Score Brownlee Depression Inventory - II 15 Mild Depression Brownlee Anxiety Inventory 9 Mild Anxiety SELF-REPORT MEASURES On self-report mood screening measures, her pattern of responses indicated mild levels of depression and anxiety at the time of the evaluation. She denied suicidal ideation, intent or plan. REVIEW OF TEST RESULTS Cognitive Screening: On the MMSE, a brief screening instrument, she obtained a score of 25/30, which falls in the impaired range. She lost points on the Orientation (town/county), Attention & Calculation (unable to perform serial 7s and backwards spelling) and Recall (2/3) sections. Intellectual Functioning: Overall intellectual functioning was estimated to be in the average rangewith evenly developed core verbal and perceptual skills. She produced a remarkably homogeneous and internally consistent profile, without any significant relative strengths or weaknesses. None of thesix index level pair- curran contrasts reached statistical significance. Therefore, her FSIQ is a unita ry construct, and thus, a pharmacy sales representative single number summary of her overall intellectual functioning. Baseline intellect was estimated to be in the average range based on a word reading test and demographic characteristics. These findings suggest that she is functioning intellectually at a level relatively commensurate with her estimated baseline abilities. Memory: Both the immediate and delayed memory index fell in the average range. The auditory memory index was also average. Likewise, memory for stories was consistently in the average range. Associative verbal learning was high average during the acquisition trials, delayed free recall as well as during recognition testing. Learning of a semantically related word list was in the average range during the acquisition phase, with average range performance on all subsequent recall and recognition trials. Visual memory index was on the high end of average range. Memory for simple geometric shapes was average during immediate recall, and high average during the delayed recall and recognition tasks. Her ability to reproduce a complex figure was intact after both a brief delay and a longer delay. Attention and Executive Functions: Basic auditory attention was low average. Visuomotor speed ranged from average to high average. On a computerized test of vigilance and sustained visual attention, overall performance was in the clinical range. Her profile was marked by slow and variable reaction time and elevated omission error rates. Executive functions were characterized by intact concept formation, cognitive flexibility, and verbal fluency, and borderline to average range auditory working memory. Planning during the copy trial of a complex figure test was fair. She started out by drawingthe outer contour and peripheral elements, then adding clusters of detail. Despite a lack of apparent strategy to capture the overall organizational principles, she performed well on subsequent recall trials. Language Skills: Performance on tests of expressive language was intact including word reading, object naming and rapid word generation to letter and category cues. Word knowledge and abstract verbalreasoning were average. Performance on a receptive language test was borderline. Visuospatial / Visuoconstruction Skills: Visuospatial and visuoconstruction skills were intact. Performance on a clock drawing test was flawless. Sensory-Motor Skills: Finger tapping speed was borderline for the right (dominant) hand and averagefor the left hand. Fine motor coordination and speed was low average with the right and average with the left hand. SUMMARY AND RECOMMENDATIONS Ms. Oswald showed no vince impairment in any of the cognitive domains assessed. She demonstrated some isolated mild deficits in auditory working memory, sustained visual attention, receptive language and dominant hand finger tapping speed. She also produced several scores in the high average and even very superior range in multiple domains including both visual and verbal memory, processing speed,object naming and letter fluency. These findings were observed in the context of estimated average range intellectual functioning, adequate cognitive effort, mild self-reported depression and anxiety, as well as otherwise intact visuospatial, executive, language, memory and motor functions. The present pattern of mild difficulties is likely largely accounted for by Ms. Oswald???s remote history of stroke. Her overall neuropsychological profile is not clearly lateralizing and does not suggest the presence of an underlying neurodegenerative process. On the contrary, her numerous above average performances on objective testing indicates a likely generally good cognitive recovery from her stroke. Her subjective sense of fluctuating cognitive abilities may be mediated by acute emotionaldistress. It should be noted that while she performed in the impaired range on a brief cognitive screener, her overall cognitive performance was at or above expectations on more detailed testing. Hence, scoresin the failing range on future brief screening should be interpreted with caution. The present evalu ation would serve as a valuable comparison for future assessments. The present tests were administered in a quiet, structured environment with no distractions, one-on-one with a trained examiner, who made an effort to make the examinee comfortable and keep stress tyler minimum. As such, they likely reflect an optimal environment that maximizes cognitive functioning. Thus, Ms. Oswald may have more difficulties in situations where multiple simultaneous cognitive janice nds are present in an unpredictable, fast-paced environment and when under stress. Ms. Oswald reported experiencing daytime fatigue. Fatigue may be contributing to her cognitive problems. Exploring factors that may be contributing to fatigue is suggested. In the interim, she may wish to complete tasks that she finds most demanding at times of the day when she is likely to feel most well rested. Taking occasional rest breaks during tasks may also be helpful. Ms. Oswald indicated that she occasionally forgets to take her medication. Using a pill box and a system (calendar, timer or other strategically developed environmental cues) to remind her when it???stime to take the medication is recommended. Thank you for referring Ms. Oswald for evaluation. Please contact us at [phone] if we can be of further assistance. Moise Servin, Ph.D. Junior Mills, Ph.D. Post-Doctoral Fellow Clinical Neuropsychologist Neuropsychology Tracer Lathe Set Up OperatorMold Fillerhammerer helper This report was prepared by Moise Servin, Ph.D., Postdoctoral Fellow in Neuropsychology, under the supervision of Junior Mills, Ph.D. documented in this encounter Plan of Treatment Not on file documented as of this encounter Visit Diagnoses Diagnosis Cerebral infarction- Primary Unspecified cerebral artery occlusion with cerebral infarction Cognitive disorder Unspecified persistent mental disorders due to conditions classified elsewhere documented in this encounter Care Teams Commercial Collections Driver Relationship Specialty Start Date End Date Izzy Jackson MD [address] [place] [address] PCP - General 09/23/13 documented as of this encounter
--- OUTSIDE RECORDS SUMMARY | 2024-01-12 02:09 | XMS_ITS | Encounter Summary ---
Author Organization [facility] Address [facility] [place] [address] Care Team Providers Care Wing Mailer Machine Operator Name Role Phone Izzy Jackson MD Primary Care Provider [phone] Reason for Referral * Psychiatric (Routine) - Closed by system - Referral Specialty Diagnoses / Procedures Referred By Contac t Referred To Contact Psychology / Psychiatry Diagnoses Memory difficulty Vincenzo Fay MD [facility] [place] [address] [facility] [address] [place] [address] Referral ID Status Reason Start Date Expiration Date Visits Requested Visits Authorized [id number] Closed by system - Referral Consult, Test & Treat 09/23/2013 03/22/2014 1 1 Encounter Details Date Type Department Care Team (Late st Contact Info) Description 09/23/2013 12:45 PM EDT [place] [address] Vincenzo Fay MD [facility] [place] [address] Memory difficulty (Primary Dx) Discharge Disposition: Home Social History Tobacco Use Types Packs/Day Years Used Date Smoking Tobacco: Former Comments:quit 40 years ago Sex and Gender Information Value Date Recorded Sex Assigned at Not on file Gender Identity Not on file Sexual Orientation Not on file documented as of this encounter Last Filed Vital Signs Vital Sign Reading Time Taken Comments Blood Pressure 146/55 09/23/2013 12:39 PM EDT Pulse 66 09/23/2013 12:39 PM EDT Temperature - - Respiratory Rate - - Oxygen Saturation - - Inhaled Oxygen Concentration - - Weight 67.6 kg (149 lb) 09/23/2013 12:39 PM EDT Height 157.5 cm (5' 2) 09/23/2013 12:39 PM EDT Body Mass Index 27.25 09/23/2013 12:39 PM EDT documented in this encounter Progress Notes * Vincenzo Fay MD - 09/23/2013 1:39 PM EDT CLARIFICATION NEEDED COPY: Izzy Jackson M.D. KIMBERLY Cesar I saw Randi Oswald today in neurology consultation at the request of KIMBERLY Cesar. Randi was accompanied by her daughter, Zulema. Randi is a 72-year-old woman who had a lacunar stroke back in 2006 and was seen again in 2011. There are some areas of hyperintensity on her scan. Whether these represent completed stroke or not is hard to say, but certainly there were no other unexpected findings such as blood clots, large vessel strokes, tumors, etc. She has been seen a number of times by her primary care team, and bedside testing with Mini-Mental State Examinations has proven normal in each case. Nonetheless, she is concerned that she is having more difficulty cognitively than she remembers having in the remote past. Her daughter reminds us that Randi's memory was never exemplary but acknowledges that it may be less acute now. She has had a lot of blood work, looking for the usual culprits in cognitive change, and none were noted. The only one I do not see having been measured is vitamin B12 level. She used to take vitamin B12 orally but has stopped doing so recently. I will check a B12 and its metabolites, homocysteine and methylmalonic acid, to be sure that this is not an avenue we have overlooked to treat her. The most important thing, I think, is to get a very much more detailed neuropsychological testing battery for diagnostic purposes but also to establish a baseline against which we can compare in the future. We discussed the rationale for this with her and her daughter. They are in agreement. I will plan to see them back in followup. Twenty-five minutes of our 40-minute visit were in supportive counseling and therapeutic planning. documented in this encounter Plan of Treatment Scheduled Referrals Name Type Priority Associated Diagnoses Order Schedule Referral to Neuropsychology Outpatient Referral Routine Memory difficulty Ordered: 09/23/2013 documented as of this encounter Procedures Procedure Name Priority Date/Time Associated Diagnosis Comments METHYLMALONIC ACID, SERUM Routine 09/23/2013 1:33 PM EDT Memory difficulty HOMOCYSTEINE TOTAL, PLASMA Routine 09/23/2013 1:33 PM EDT Memory difficulty VITAMIN B12 Routine 09/23/2013 1:33 PM EDT Memory difficulty documented in this encounter Results * Vitamin B12 (09/23/2013 1:33 PM EDT) Pathologist [facility] [place] Vitamin B-12 [phone] - 974 pg/mL [facility] Blood specimen (specimen) 09/23/2013 1:33 PM EDT 09/23/2013 1:42 PM EDT Narrative Resulting Agency Comment Spec In Lab Vincenzo Fay MD CHEMISTRY ORDERABLES Performing Organization Address City/[facility] Co de Phone Number [facility] [place] * Methylmalonic acid, serum (09/23/2013 1:33 PM EDT) Pathologist [facility] [place] Methylmalonic Acid 0.30 <=0.40 nmol/mL [facility] [place] Comment: Test Performed by: [address] [address] Clinical Information Systems Director: Adolfo Dudley III, M.D. Blood specimen (specimen) 09/23/2013 1:33 PM EDT 09/23/2013 3:33 PM EDT Narrative Resulting Agency Comment Spec In Lab Vincenzo Fay MD CHEMISTRY ORDERABLES [facility] * Homocysteine Total, Plasma (09/23/2013 1:33 PM EDT) Homocyst Tot 8 <=15 mcmol/L [facility] Blood specimen (specimen) 09/23/2013 1:33 PM EDT 09/23/2013 1:42 PM EDT Narrative Resulting Agency Comment Spec In Lab Vincenzo Fay MD CHEMISTRY ORDERABLES [facility] [place] documented in this encounter Visit Diagnoses Diagnosis Memory difficulty- Primary Memory loss documented in this encounter Care Teams Wing Mailer Machine Operator Relationship Specialty Start Date End Date Izzy Jackson MD [address] [place] [id number] PCP - General 09/23/13 documented as of this encounter
--- OUTSIDE RECORDS SUMMARY | 2024-01-12 02:09 | XMS_ITS | Data Portability ---
Author Organization [place] - [facility] [place] [address] Assessment Encounter Date Assessment Date Assessment LastModified by Organization Details LastModified Time 06/09/2023 06/09/2023 The total time devoted to today's encounter, including both the msxt-wg-dery time with the patient and/or family/caregi cody and jjm-dogo-sk-f cristal time I personally spent is 38 minutes. [email or web address] Not available 06/09/2023 15:24:47 Plan of Treatment Reminders Order Date Submit Date Provider Last Modified By Organization Details Last Modified Time Details Appointments Follow Up 30 2023 02:30P M SHEELA ADRIAN Not available Not available Not available Lab BMP, serum or plasma 2022 023 [email or web address] [facility] (Registration ), [address] [place] [address] [place], [address], 06/10/2023 12:46:27 CBC w/ diff 2022 023 [email or web address] [facility] (Registration ), [address] [place] [address] [place], [address], 06/10/2023 12:46:15 Referral neurologi mady - Sarita Mares. memory loss, forgetful . 2022 023 [email or web address] [facility], [address] [place] [address] [place], [address], 09/08/2023 12:16:19 Procedures None recorded. Surgeries None recorded. Imaging None recorded. Medication Orders fluticaso ne propionat e 50 mcg/actua tion nasal spray,madelaine pension 2022 023 [facility] [address] [place], [address], 06/09/2023 14:41:52 ipratropi um bromide 21 mcg (0.03 %) nasal spray 2022 023 [address] [address] [address] [place], [address], 06/09/2023 14:42:59 Incruse Ellipta 62.5 mcg/actua tion powder for inhalatio n 2022 023 [facility] [address] [place], [address], 06/09/2023 15:07:54 Patient TargetsNo targets recorded. Patient InstructionsNo instructions recorded. Reason for Referral Neurologist Referral for Anx iety disorder Sarita Mares. memory loss, forgetful. Referring Physician: Sheela Adrian [facility], Encounter Date: 06/09/2023 Communications Coordinator Referral for Sen sorineural hearing loss Referring Physician: Sheela Adrian [facility], Encounter Date: 11/20/2023 Results Created Date Observation Date Name Description Value Unit Range Abnormal Flag LastModifiedBy Organization Detail LastModifiedTime 06/09/2006/09/2023 BASIC METAB OLIC PANEL calcium 9.8 mg/dL 8.5-10 .1 normal Not Available [address] [place], [address] 06/09/2023 21:15:30 06/09/20 23 06/09/2023 BASIC METAB OLIC PANEL glucose 123 mg/dL 74-106 high Not Available [facility] [address] [place] [address] [place], [address] 06/09/2023 21:15:30 06/09/20 23 06/09/2023 BASIC METAB OLIC PANEL BUN 27 mg/dL 7-18 high Not Available Arlin gregg [address] [place], [address] 06/09/2023 21:15:30 06/09/20 23 06/09/2023 BASIC METAB OLIC PANEL creatinine 1.1 mg/dL 0.55-1 .02 high Not Available [address] [place], [address] 06/09/2023 21:15:30 06/09/20 23 06/09/2023 BASIC METAB OLIC PANEL estimated GFR 50.80 mL/min /1.73m 2 Not Available [address] [place], [address] 06/09/2023 21:15:30 06/09/20 23 06/09/2023 BASIC METAB OLIC PANEL sodium 143 mmol/ L 136-14 5 normal Not Available [address] [place], [address] 06/09/2023 21:15:30 06/09/20 23 06/09/2023 BASIC METAB OLIC PANEL potassium 3.6 mmol/ L 3.5-5. 1 normal Not Available [address] [place], [address] 06/09/2023 21:15:30 06/09/20 23 06/09/2023 BASIC METAB OLIC PANEL chloride 102 mmol/ L 98-107 normal Not Available [address] [place], [address] 06/09/2023 21:15:30 06/09/20 23 06/09/2023 BASIC METAB OLIC PANEL CO2 33.7 mmol/ L 21.0-3 2.0 high Not Available [address] [place], [address] 06/09/2023 21:15:30 06/09/20 23 06/09/2023 BASIC METAB OLIC PANEL anion gap 7.3 mmol/ L 3-11 normal Not Available [address] [place], [address] 06/09/2023 21:15:30 06/09/20 23 06/09/2023 COMPL ETE BLOOD COUNT W/DIF F WBC 4.56 10_3/ uL 4.4-10 .8 normal Not Available [address] [place], [address] 06/09/2023 21:19:30 06/09/20 23 06/09/2023 COMPL ETE BLOOD COUNT W/DIF F RBC 3.97 10_6/ uL 3.93-5 .22 normal Not Available [address] [place], [address] 06/09/2023 21:19:30 06/09/20 23 06/09/2023 COMPL ETE BLOOD COUNT W/DIF F HGB 12.2 g/dL 11.2-1 5.7 normal Not Available [address] [place], [address] 06/09/2023 21:19:30 06/09/20 23 06/09/2023 COMPL ETE BLOOD COUNT W/DIF F HCT 37.1 % 36.0-4 6.0 normal Not Available [address] [place], [address] 06/09/2023 21:19:30 06/09/20 23 06/09/2023 COMPL ETE BLOOD COUNT W/DIF F MCV 94 fL 80-95 normal Not Available [address] [place], [address] 06/09/2023 21:19:30 06/09/20 23 06/09/2023 COMPL ETE BLOOD COUNT W/DIF F MCH 30.7 pg 27.0-3 3.0 normal Not Available [address] [place], [address] 06/09/2023 21:19:30 06/09/20 23 06/09/2023 COMPL ETE BLOOD COUNT W/DIF F MCHC 32.9 % 32.0-3 6.0 normal Not Available [address] [place], [address] 06/09/2023 21:19:30 06/09/20 23 06/09/2023 COMPL ETE BLOOD COUNT W/DIF F RDW 11.9 % 11.7-1 4.6 normal Not Available [address] [place], [address] 06/09/2023 21:19:30 06/09/20 23 06/09/2023 COMPL ETE BLOOD COUNT W/DIF F platelet count 219 10_3/ uL 130-40 0 normal Not Available [address] [place], [address] 06/09/2023 21:19:30 06/09/20 23 06/09/2023 COMPL ETE BLOOD COUNT W/DIF F MPV 10.3 fL 8.0-11 .0 normal Not Available [address] [place], [address] 06/09/2023 21:19:30 06/09/20 23 06/09/2023 COMPL ETE BLOOD COUNT W/DIF F neutrophils % 70.2 Not Available [address] [place], [address] 06/09/2023 21:19:30 06/09/20 23 06/09/2023 COMPL ETE BLOOD COUNT W/DIF F lymphocytes % 19.5 Not Available [address] [place], [address] 06/09/2023 21:19:30 06/09/20 23 06/09/2023 COMPL ETE BLOOD COUNT W/DIF F monocytes % 8.1 Not Available [address] [place], [address] 06/09/2023 21:19:30 06/09/20 23 06/09/2023 COMPL ETE BLOOD COUNT W/DIF F eosinophils % 1.3 Not Available [address] [place], [address] 06/09/2023 21:19:30 06/09/20 23 06/09/2023 COMPL ETE BLOOD COUNT W/DIF F basophils % 0.7 Not Available [address] [place], [address] 06/09/2023 21:19:30 06/09/20 23 06/09/2023 COMPL ETE BLOOD COUNT W/DIF F immature grans % 0.2 Not Available [address] [place], [address] 06/09/2023 21:19:30 06/09/20 23 06/09/2023 COMPL ETE BLOOD COUNT W/DIF F nucleated RBC 0.0 % 0.0-0. 3 normal Not Available [address] [place], [address] 06/09/2023 21:19:30 06/09/20 23 06/09/2023 COMPL ETE BLOOD COUNT W/DIF F absolute neutrophil count 3.20 10_3/ uL 1.2-6. 7 normal Not Available [address] [place], [address] 06/09/2023 21:19:30 06/09/20 23 06/09/2023 COMPL ETE BLOOD COUNT W/DIF F absolute lymphocyte count 0.89 10_3/ uL 1.2-3. 4 low Not Available [address] [place], [address] 06/09/2023 21:19:30 06/09/20 23 06/09/2023 COMPL ETE BLOOD COUNT W/DIF F absolute monocyte count 0.37 10_3/ uL 0.1-0. 8 normal Not Available [address] [place], [address] 06/09/2023 21:19:30 06/09/20 23 06/09/2023 COMPL ETE BLOOD COUNT W/DIF F absolute eosinophil count 0.06 10_3/ uL 0.0-0. 7 normal Not Available [address] [place], [address] 06/09/2023 21:19:30 06/09/20 23 06/09/2023 COMPL ETE BLOOD COUNT W/DIF F absolute basophil count 0.03 10_3/ uL 0.0-0. 2 normal Not Available [address] [place], [address] 06/09/2023 21:19:30 09/02/19 24 09/02/2023 TSH (W/RE F FT4) TSH (w/ref FT4) 2.24 uIU/m L 0.36-3 .74 normal Not Available [address] [place], [address] 09/02/2023 13:00:43 12/24/19 24 12/24/2023 CREAT ININE creatinine 1.0 mg/dL 0.55-1 .02 normal Not Available [address] [place], [address] 12/24/2023 09:42:07 12/24/19 24 12/24/2023 CREAT ININE estimated GFR 56.60 mL/min /1.73m 2 Not Available [address] [place], [address] 12/24/2023 09:42:07 01/04/20 24 01/04/2024 COMPL ETE BLOOD COUNT W/DIF F WBC 4.15 10_3/ uL 4.4-10 .8 low Not Available [address] [place], [address] 01/04/2024 18:27:48 01/04/20 24 01/04/2024 COMPL ETE BLOOD COUNT W/DIF F RBC 3.38 10_6/ uL 3.93-5 .22 low Not Available [address] [place], [address] 01/04/2024 18:27:48 01/04/20 24 01/04/2024 COMPL ETE BLOOD COUNT W/DIF F HGB 10.4 g/dL 11.2-1 5.7 low Not Available [address] [place], [address] 01/04/2024 18:27:48 01/04/20 24 01/04/2024 COMPL ETE BLOOD COUNT W/DIF F HCT 30.5 % 36.0-4 6.0 low Not Available [address] [place], [address] 01/04/2024 18:27:48 01/04/20 24 01/04/2024 COMPL ETE BLOOD COUNT W/DIF F MCV 90 fL 80-95 normal Not Available [address] [place], [address] 01/04/2024 18:27:48 01/04/20 24 01/04/2024 COMPL ETE BLOOD COUNT W/DIF F MCH 30.8 pg 27.0-3 3.0 normal Not Available [address] [place], [address] 01/04/2024 18:27:48 01/04/20 24 01/04/2024 COMPL ETE BLOOD COUNT W/DIF F MCHC 34.1 % 32.0-3 6.0 normal Not Available [address] [place], [address] 01/04/2024 18:27:48 01/04/20 24 01/04/2024 COMPL ETE BLOOD COUNT W/DIF F RDW 12.7 % 11.7-1 4.6 normal Not Available [address] [place], [address] 01/04/2024 18:27:48 01/04/20 24 01/04/2024 COMPL ETE BLOOD COUNT W/DIF F platelet count 172 10_3/ uL 130-40 0 normal Not Available [address] [place], [address] 01/04/2024 18:27:48 01/04/20 24 01/04/2024 COMPL ETE BLOOD COUNT W/DIF F MPV 10.1 fL 8.0-11 .0 normal Not Available [address] [place], [address] 01/04/2024 18:27:48 01/04/20 24 01/04/2024 COMPL ETE BLOOD COUNT W/DIF F neutrophils % 66.0 % Not Available [address] [place], [address] 01/04/2024 18:27:48 01/04/20 24 01/04/2024 COMPL ETE BLOOD COUNT W/DIF F lymphocytes % 19.5 % Not Available [address] [place] [place], [address] 01/04/2024 18:27:48 01/04/20 24 01/04/2024 COMPL ETE BLOOD COUNT W/DIF F monocytes % 11.8 % Not Available Patsy balderas [address] [place], [address] 01/04/2024 18:27:48 01/04/20 24 01/04/2024 COMPL ETE BLOOD COUNT W/DIF F eosinophils % 1.2 % Not Available [address] [place], [address] 01/04/2024 18:27:48 01/04/20 24 01/04/2024 COMPL ETE BLOOD COUNT W/DIF F basophils % 1.0 % Not Available Patsy balderas [address] [place], [address] 01/04/2024 18:27:48 01/04/20 24 01/04/2024 COMPL ETE BLOOD COUNT W/DIF F immature grans % 0.5 % Not Available [address] [place], [address] 01/04/2024 18:27:48 01/04/20 24 01/04/2024 COMPL ETE BLOOD COUNT W/DIF F nucleated RBC 0.0 % 0.0-0. 3 normal Not Available [address] [place], [address] 01/04/2024 18:27:48 01/04/20 24 01/04/2024 COMPL ETE BLOOD COUNT W/DIF F absolute neutrophil count 2.74 10_3/ uL 1.2-6. 7 normal Not Available [address] [place], [address] 01/04/2024 18:27:48 01/04/20 24 01/04/2024 COMPL ETE BLOOD COUNT W/DIF F absolute lymphocyte count 0.81 10_3/ uL 1.2-3. 4 low Not Available [address] [place], [address] 01/04/2024 18:27:48 01/04/20 24 01/04/2024 COMPL ETE BLOOD COUNT W/DIF F absolute monocyte count 0.49 10_3/ uL 0.1-0. 8 normal Not Available [address] [place], [address] 01/04/2024 18:27:48 01/04/20 24 01/04/2024 COMPL ETE BLOOD COUNT W/DIF F absolute eosinophil count 0.05 10_3/ uL 0.0-0. 7 normal Not Available [address] [place], [address] 01/04/2024 18:27:48 01/04/20 24 01/04/2024 COMPL ETE BLOOD COUNT W/DIF F absolute basophil count 0.04 10_3/ uL 0.0-0. 2 normal Not Available [address] [place], [address] 01/04/2024 18:27:48 01/04/20 24 01/04/2024 COMPR EHENS KAYLYNN METAB OLIC PANEL calcium 8.8 mg/dL 8.5-10 .1 normal Not Available [address] [place], [address] 01/04/2024 18:38:51 01/04/20 24 01/04/2024 COMPR EHENS KAYLYNN METAB OLIC PANEL glucose 155 mg/dL 74-106 high Not Available [address] [place], [address] 01/04/2024 18:38:51 01/04/20 24 01/04/2024 COMPR EHENS KAYLYNN METAB OLIC PANEL BUN 25 mg/dL 7-18 high Not Available [address] [place], [address] 01/04/2024 18:38:51 01/04/20 24 01/04/2024 COMPR EHENS KAYLYNN METAB OLIC PANEL creatinine 1.3 mg/dL 0.55-1 .02 high Not Available [address] [place], [address] 01/04/2024 18:38:51 01/04/20 24 01/04/2024 COMPR EHENS KAYLYNN METAB OLIC PANEL estimated GFR 41.31 mL/min /1.73m 2 Not Available [address] [place], [address] 01/04/2024 18:38:51 01/04/20 24 01/04/2024 COMPR EHENS KAYLYNN METAB OLIC PANEL total protein 6.3 g/dL 6.4-8. 2 low Not Available [address] [place], [address] 01/04/2024 18:38:51 01/04/20 24 01/04/2024 COMPR EHENS KAYLYNN METAB OLIC PANEL albumin 3.8 g/dL 3.4-5. 0 normal Not Available [address] [place], [address] 01/04/2024 18:38:51 01/04/20 24 01/04/2024 COMPR EHENS KAYLYNN METAB OLIC PANEL bilirubin, total 0.30 mg/dL 0.2-1. 0 normal Not Available [address] [place], [address] 01/04/2024 18:38:51 01/04/20 24 01/04/2024 COMPR EHENS KAYLYNN METAB OLIC PANEL alk phos 75 U/L 46-116 normal Not Available [address] [place], [address] 01/04/2024 18:38:51 01/04/20 24 01/04/2024 COMPR EHENS KAYLYNN METAB OLIC PANEL sodium 136 mmol/ L 136-14 5 normal Not Available [address] [place], [address] 01/04/2024 18:38:51 01/04/20 24 01/04/2024 COMPR EHENS KAYLYNN METAB OLIC PANEL potassium 3.8 mmol/ L 3.5-5. 1 normal Not Available [address] [place], [address] 01/04/2024 18:38:51 01/04/20 24 01/04/2024 COMPR EHENS KAYLYNN METAB OLIC PANEL chloride 100 mmol/ L 98-107 normal Not Available [address] [place], [address] 01/04/2024 18:38:51 01/04/20 24 01/04/2024 COMPR EHENS KAYLYNN METAB OLIC PANEL CO2 27.7 mmol/ L 21.0-3 2.0 normal Not Available [address] [place], [address] 01/04/2024 18:38:51 01/04/20 24 01/04/2024 COMPR EHENS KAYLYNN METAB OLIC PANEL anion gap 8.3 mmol/ L 3-11 normal Not Available [address] [place], [address] 01/04/2024 18:38:51 01/04/20 24 01/04/2024 COMPR EHENS KAYLYNN METAB OLIC PANEL AST 19 U/L 15-37 normal Not Available [address] [place], [address] 01/04/2024 18:38:51 01/04/20 24 01/04/2024 COMPR EHENS KAYLYNN METAB OLIC PANEL ALT 17 U/L 14-59 normal Not Available [address] [place], [address] 01/04/2024 18:38:51 09/10/19 24 09/10/2023 MRI, brain , w/o contr ast No observ ation record ed. [email or web address] [facility] [address] [address], [place], [address], 09/11/2023 16:10:27 01/04/20 24 01/04/2024 vrad repor t Ar t Name: Connor Oswald rc Palma Unit #: [id number] Loc: ER Orderi [facility] er: Acckourtney t #: [id number] Status : REG ER Primar y Care Provid er: Teetee Dee Date of Exam: 01/20 Sex: F : 1940 Age: 83 Exam(s ) PROCED URE INFORM ATION: Exam: CT Head Withou t Contra st Exam date and time: 01/04/20 6:48 PM Age: 83 years old Clinic al indica tion: Injury or trauma ; Blunt trauma (contu sions or hemato mas); Consci ousnes s not specif ied; Injury date: 01/04/24 ; Injury detail s: Fall, on thinne rs TECHNI QUE: Imagin g protoc ol: Comput ed tomogr aphy of the head withou t contra st. COMPAR PAMELA: MRI, BRAIN S/ CONTRA ST 024 11:19 AM FINDIN GS: Brain: No acute intrac ranial hemorr gustavo, mass-e ffect, midlin e shift, or extra- axial collec tion is seen. There is patchy white matter hypoat tenuat ion, nonspe cific but common ly seen as a chroni c sequel a of small vessel ischem ic diseas e. There is a large old lacuna r infarc t involv ing the left basal gangli a, deep white matter tracts , and manley radiat a, also seen [facility] exam from September 10, 2023. The prado white matter differ entiat ion appear s preser wilfrid. There is symmet cyndi parenc hymal volume loss. Cerebr al ventri cles: There is mild ex vacuo dilata tion of the left latera l ventri rashida but no hydroc ephalu s. Parana danilo sinuse s: The visual ized parana danilo sinuse s appear well-a erated . Mastoi d air cells: The mastoi d air cells appear well-a erated . Audito ry system : The middle ear caviti es appear clear. Orbita l caviti es: The globes and intrao rbital struct ures appear grossl y intact . Bones: The bony calvar ium appear s intact . No depres sed skull fractu re is seen. Soft tissue s: No gross focal scalp hemato ma is seen. Vascul ature: There is athero sclero tic calcif icatio n within the intrac ranial portio n of the left verteb ral artery and bilate ral advertising intern al caroti d arteri es. IMPRES GLORIA: 1. No acute intrac ranial hemorr gustavo or depres sed skull fractu re. 2. Large old lacuna r infarc t involv ing the left basal gangli a, deep white matter tracts , and manley radiat a. Dictat ed and Authen ticate d by: Jeffrey Wood MD. Betsy blum:Austen Arias MD Access ion#=[id number] Papito palma By: CC: ------ ------ ------ ------ ------ ------ ------ ------ ------ ------ ------ ------ ---- Dictat ed By: Report s ada 1847 Transc ribed By: Darline Poasdas 1847 This is privil eged, confid ential inform ation intend ed only for the provid er named. Any use or distri bution by any person other than this provid er is strict ly prohib ited. If you receiv e this report in error, please notify us immedi betoly at [phone] and return the origin al report to us at the addres s above. Thank- you. [email or web address] [facility] [address], [place], [address] 01/06/2024 06:53:03 Result Notes None recorded. Problems Name Status Onset Date Resolution Date Notes Provider Name and Address Organization Details Recorded Time Cataract Active 2012 Problem Code: H26.9; Problem Code Type: ICD-10; Not Available [facility] 4 20:02:29 Cerebral infarction Active 201212/15/2018 - Comments only - Sheela Adrian APRN - continue with good BP control, statin, aggrenox. Follow-up with neurology as planned next month. Problem Code: I63.9; Problem Code Type: ICD-10; Not Available [facility] 4 20:02:30 Anxiety disorder Active 201206/02/2019 - Improved - Prince Geronimo - Problem Code: F41.9; Problem Code Type: ICD-10; Not Available [facility] 4 20:02:30 Sensorineural hearing loss Active 201203/17/2018 - Comments only - Sheela Adrian APRN - continue routine follow-up with audiology. Problem Code: H90.5; Problem Code Type: ICD-10; Not Available [facility] 4 20:02:30 History of artificial eye lens Active 201203/17/2018 - Comments only - Sheela Adrian APRN - with hx of cataract with repair. Continue to see eye provider yearly. Problem Code: Z96.1; Problem Code Type: ICD-10; Not Available [facility] 4 20:02:29 Pain in thoracic spine Active 201212/15/2018 - Comments only - Sheela Adrian APRN - overall stable, continue rare use of tramadol. CSA next visit. hold on UDS until next visit. VPMS checked, no concerns. counselor march. Problem Code: M54.9; Problem Code Type: ICD-10; Not Available [facility] 4 20:02:30 Bone density finding Active 201306/02/2018 - Comments only - Sheela Adrian APRN - Continue with vitamin D and calcium supplementati on. Encourage weightbearing exercises. Repeat DEXA scan next year. Problem Code: M85.80; Problem Code Type: ICD-10; Not Available [facility] 4 20:02:30 Cellulitis Completed 201401/11/2015 12/12/2014 - Comments only - Sheela Adrian APRN - treat with cephalexin BID X 7 days. Reviewed common side effects of this medication. Encouraged good wound care. Problem Code: L03.90; Problem Code Type: ICD-10; Not Available [facility] 3 03:56:03 Chronic sinusitis Completed 201401/11/2015 12/12/2014 - Comments only - Sheela Adrian APRN - stop afrin. Start normal saline sprays PRN. Consider flonase. Problem Code: J32.9; Problem Code Type: ICD-10; Not Available [facility] 3 03:56:03 Dizziness and giddiness Active 201612/15/2018 - Comments only - Sheela Adrian APRN - minimal episodes. monitor for now. Problem Code: R42; Problem Code Type: ICD-10; Not Available [facility] 4 20:02:30 Vertebrobasil ar artery syndrome Active 201603/17/2018 - Comments only - Sheela Adrian APRN - see dizziness/ vertigo. 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 Increase in frequency of dizziness may represent worsening of her underlying vertigo by sinus congestion. Advised her to f/u if this does not improve when URI is resolved, or if it worsens. Advised fluids, rest and nasal saline rinses four times a day. Scheduled f/u in 1 wk, sooner if her symptoms worsen or if she develops new symptoms. The patient verbalized understanding and agreement to this care plan. Problem Code: J06.9; Problem Code Type: ICD-10; Not Available [facility] 3 03:56:04 Chronic obstructive pulmonary disease Active 201712/15/2018 - Comments only - Sheela Adrian APRN - asymptomatic. monitor for now. Problem Code: J44.9; Problem Code Type: ICD-10; Not Available [facility] 4 20:02:29 Peripheral vascular disease Active 201706/02/2018 - Comments only - Sheela Adrian APRN - Continue current medication regimen. Problem Code: I73.9; Problem Code Type: ICD-10; Not Available [facility] 4 20:02:30 Dysphagia Completed 201703/26/2023 12/15/2018 - Comments only - Sheela Adrian APRN - resolved. monitor for recurrences. continue H2. Problem Code: R13.10; Problem Code Type: ICD-10; Not Available [facility] 3 03:56:04 Heart murmur Active 201712/15/2018 - Comments only - Sheela Adrian APRN - with carotid bruit. monitor, check every 2 years. next in 2019. Problem Code: R01.1; Problem Code Type: ICD-10; Not Available [facility] 4 20:02:30 Long-term current use of anticoagulant Active 2018 Problem Code: Z79.01; Problem Code Type: ICD-10; Not Available [facility] 4 20:02:30 Anemia Active 2018 Problem Code: D64.9; Problem Code Type: ICD-10; Not Available [facility] 4 20:02:30 Closed fracture of neck of femur Active 2019 Problem Code: S72.009D; Problem Code Type: ICD-10; Not Available [facility] 4 20:02:30 Constipation Active 2019 Problem Code: K59.00; Problem Code Type: ICD-10; Not Available [facility] 4 20:02:29 Chronic kidney disease stage 3A Active 2019 Problem Code: N18.31; Problem Code Type: ICD-10; Not Available [facility] 4 20:02:30 Pre-surgery evaluation Completed 202010/05/2020 Problem Code: Z01.818; Problem Code Type: ICD-10; Not Available [facility] 3 03:56:05 History of polyp of colon Active 2017 Problem Code: Z86.010; Problem Code Type: ICD-10; Not Available [facility] 4 20:02:30 Carotid artery stenosis Active 2020 Not Available [facility] 4 20:02:30 Dementia Active 2020 Problem Code: F03.90; Problem Code Type: ICD-10; Not Available [facility] 4 20:02:30 Pain of right knee joint Active 2021 Problem Code: M25.561; Problem Code Type: ICD-10; Not Available [facility] 4 20:02:30 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 Problem Code: Z87.891; Problem Code Type: ICD-10; Not Available [facility] 4 20:02:30 Hyperlipidemi a Active 201212/15/2018 - Comments only - Sheela Adrian [employer]POS[employer] WORKER - continue statin. CMP last done in October. Problem Code: E78.5; Problem Code Type: ICD-10; Not Available [facility] 4 20:02:30 Essential hypertension Active 201212/15/2018 - Comments only - Sheela Raleigh [employer] WORKER - stable, continue medication regimen. Problem Code: I10; Problem Code Type: ICD-10; Not Available [facility] 4 20:02:30 Chronic rhinitis Completed 201403/19/2016 Problem Code: J31.0; Problem Code Type: ICD-10; Not Available [facility] 3 03:56:07 Carotid bruit Completed 201707/05/2021 Not Available [facility] 3 03:56:07 Abnormal auditory perception Completed 201203/26/2023 Not Available [facility] 3 03:56:08 Screening for malignant neoplasm of breast Completed 201702/11/2022 Problem Code: Z12.39; Problem Code Type: ICD-10; Not Available [facility] 3 03:56:08 Blepharitis Completed 201203/19/2016 Problem Code: H01.009; Problem Code Type: ICD-10; Not Available [facility] 3 03:56:08 Muscle weakness Completed 201602/11/2022 Problem Code: M62.81; Problem Code Type: ICD-10; Not Available [facility] 3 03:56:09 Generalized hyperhidrosis Completed 202001/09/2021 Problem Code: R61; Problem Code Type: ICD-10; Not Available [facility] 3 03:56:09 Iron deficiency anemia Completed 201803/26/2023 11/30/2018 - Comments only - Sheela Adrian [employer] WORK[employer] - continue with iron supplement QOD. check iron level in 3 months. Problem Code: D50.9; Problem Code Type: ICD-10; Not Available [facility] 3 03:56:09 Cough Completed 201804/22/2019 Problem Code: R05; Problem Code Type: ICD-10; Not Available [facility] 3 03:56:11 Palpitations Completed 201504/22/2019 Problem Code: R00.2; Problem Code Type: ICD-10; Not Available [facility] 3 03:56:11 Genitourinary symptoms Completed 201901/09/2021 Problem Code: R39.9; Problem Code Type: ICD-10; Not Available [facility] 3 03:56:12 Bilateral sensory hearing loss Completed 201203/26/2023 01/19/2015 - Comments only - Sheela Adrian [employer] WORKER - Stable with use of hearing, no further interventions . Reviewed good ear hygiene. Problem Code: 389.11; Problem Code Type: ICD-9; Not Available [facility] 3 03:56:12 Disorder of kidney and/or ureter Completed 201903/26/2023 Problem Code: N28.9; Problem Code Type: ICD-10; Not Available [facility] 3 03:56:12 Chronic anxiety Completed 201203/26/2023 01/19/2015 - Comments only - Sheela Adrian APRN - Overall improved. Continue trazodone daily at bedtime. Work on coping skills. Has supportive family. Not Available [facility] 3 03:56:13 Therapeutic drug monitoring assay Completed 201902/11/2022 Problem Code: Z51.81; Problem Code Type: ICD-10; Not Available [facility] 3 03:56:13 History of clinical finding in subject Completed 201203/26/2023 Not Available [facility] 3 03:56:13 Left Achilles tendinitis Completed 201701/22/2018 Problem Code: M76.62; Problem Code Type: ICD-10; Not Available [facility] 3 03:56:14 Pain in limb Completed 201812/21/2019 Problem Code: M79.609; Problem Code Type: ICD-10; Not Available [facility] 3 03:56:15 Headache Completed 201802/11/2022 Problem Code: R51; Problem Code Type: ICD-10; Not Available [facility] 3 03:56:15 Pain disorder with psychological factor Completed 201707/09/2018 Problem Code: F45.42; Problem Code Type: ICD-10; Not Available [facility] 3 03:56:15 Screening mammography Completed 201503/19/2016 Problem Code: Z12.31; Problem Code Type: ICD-10; Not Available [facility] 3 03:56:15 Pseudophakia Completed 201203/26/2023 Not Available [facility] 3 03:56:16 Pain of right shoulder joint Completed 201602/11/2022 Problem Code: M25.511; Problem Code Type: ICD-10; Not Available [facility] 3 03:56:17 Osteopenia Completed 201303/26/2023 Not Available [facility] 3 03:56:17 Chronic back pain Completed 201203/26/2023 01/19/2015 - Comments only - Sheela Adrian APRN - Slightly worsening. Most likely arthritic in origin. Continue when necessary tramadol. Discouraged bending at the waist, lifting over 10 pounds, twisting. No desires for physical therapy. Encouraged gentle stretching, range of motion, exercises provided by physical therapy in the past. Not Available [facility] 3 03:56:17 Inguinal hernia Completed 201702/11/2022 Problem Code: K40.90; Problem Code Type: ICD-10; Not Available [facility] 3 03:56:18 Malaise Completed 201503/19/2016 Problem Code: R53.81; Problem Code Type: ICD-10; Not Available [facility] 3 03:56:18 Fatigue Completed 201804/22/2019 Problem Code: R53.83; Problem Code Type: ICD-10; SHEELA ADRIAN, COMPOSITE B[employer] WORKER [address], [place], [address] , [facility], [facility]. 3 12:52:50 Fatigue Active 2018 Not Available [facility] 4 20:02:30 Indigestion Active 2022 Not Available [facility] 4 20:02:29 Thoracic back pain Active 2022 Nallely Verónica null, [facility], [facility]. 4 11:56:22 Nonulcer dyspepsia Active 2022 Nallely Verónica null, [facility], [facility]. 4 11:56:26 Injury of abdominal wall Active 2023 MAURIZIO LESLIE, DOUGH MOLDER [employer] null, [facility], [facility] 4 09:11:44 Alzheimer's disease Active 2023 MAURIZIO LESLIE [employer] null, [facility], [facility] 4 09:31:29 Vascular dementia Active 2023 MAURIZIO LESLIE, D[employer] M[employer]DER [employer] null, [facility], [facility] 4 09:31:39 Notes:*Problem Name: Cva, Rodríguez cedillo *Problem Status: inactive *Comments: 01/19/2015 - Comments only - Sheela Adrian [employer] WORKER - I will, continue Aggrenox. Work on good blood pressure control. *Problem Code: 434.91 *Problem Code Type: ICD-9 *Note Date: 09/21/2012 Problem Notes None recorded. Procedures Surgical History None recorded. Imaging Results Imaging Date Name Status LastModified by Organiz ation Details LastModified Time 09/10/2023 MRI, brain, w/o contrast completed [email or web address] [facility] [address] [address], [place], [address], 09/11/2023 16:10:27 01/04/2024 vrad report completed [email or web address] [facility] [address] , [place], [address] 01/06/2024 06:53:03 Procedure Notes None recorded. Medical Equipment None Reported. Allergies Allergen ID Allergen Name Allergen Category Reaction Reaction Severity Criticality Documentation Date Start Date Code Code System Note Provider Name and Address Organization Details Recorded Time 25691 atenolol medicatio n dizziness mild Not available 05/09/20232013 1202 RxNorm dizzi ness Not Available [facility] 3 16:19:03 43434 Celebrex medicatio n Not available Not available Not available 05/09/20232021 21535 7 RxNorm Not Available [facility] 3 16:19:03 15169 Nexium medicatio n dizziness mild Not available 05/09/20232013 13118 9 RxNorm dizzi ness Not Available [facility] 3 16:19:03 Medications Name Sig Start Date Stop Date Status Note LastModified by Organization Details LastModified Time Augmentin 875 mg-125 mg tablet Take 1 tab by mouth twice daily. 10/31 completed Not Available Not Available Not Available aspirin 25 mg-dipyri damole 200 mg capsule,e xt.releas e 12 hr multiphas e Take 1 capsule by mouth twice a day as directed active Not Available Not Available No t Available atorvasta tin 20 mg tablet Take 1 tablet by mouth every night active Not Available Not Available No t Available trazodone 50 mg tablet TAKE ONE TO TWO TABLETS BY MOUTH AT BEDTIME NEEDED active Not Available Not Available No t Available atorvasta tin 10 mg tablet Take 1 tablet by mouth every night at bedtime 2017 active Pt seen by Joanne Adrian NP 03/17/18 to stay on med. NTS Not Available Not Available Not Available Stool Softener 100 mg capsule TAKE 1 CAPSULE BY MOUTH TWICE A DAY active Not Available Not Available No t Available Calcet Plus tablet 1 Tab by mouth daily 08/19 completed Not Available Not Available Not Available Vicodin 5 mg-500 mg tablet 1 TAB every six hours 02/15 completed Not Available Not Available Not Available citalopra m 10 mg tablet TAKE ONE TABLET BY MOUTH EVERY DAY active Not Available Not Available No t Available ranitidin e 300 mg tablet one tablet daily by mouth 11/24 completed Not Available Not Available Not Available Claritin 10 mg tablet Take 1 tablet by mouth once a day active Not Available Not Available No t Available Flonase 50 mcg/DOSE nasal inhaler 2 SPRAY daily 06/01 completed Not Available Not Available Not Available valsartan 80 mg tablet TAKE 1 TABLET BY MOUTH DAILY DIRECTED active Not Available Not Available No t Available Vitamin C 500 mg chewable tablet Take 1 tablet once a day 05/26 completed Not Available Not Available Not Available tramadol 50 mg tablet Take 1 tablet by mouth three times daily as needed 2019 active Not Available Not Available Not Avai lable acetamino phen 500 mg tablet Take 2 tablet by mouth once a day as needed 2022 active Not Available Not Available Not Avai lable simvastat in 40 mg tablet Take 1 by mouth daily 08/20 completed Not Available Not Available Not Available Prevacid 30 mg capsule,d elayed release 1 CAP daily 02/11 completed Not Available Not Available Not Available Nexium 20 mg capsule,d elayed release 1 tab qd 11/11 completed Not Available Not Available Not Available Macrobid 100 mg capsule Take 1 cap by mouth twice daily for 5 days 11/30 completed Not Available Not Available Not Available Tessalon Perles 100 mg capsule 1 capsule every 8 hours as needed for cough 04/22 completed Not Available Not Available Not Available BD Assure BPM-Auto Wrist Cuff Monitor blood pressure as directed for HTN: DX I10 2019 active Not Available Not Available Not Avai lable Vitamins B Complex tablet Take 1 tablet by mouth once a day 08/25 completed Not Available Not Available Not Available famotidin e 20 mg tablet TAKE ONE TABLET BY MOUTH EVERY DAY active Not Available Not Available No t Available magnesium oxide 400 mg (241.3 mg magnesium ) tablet 12/15 completed Not Available Not Available Not Available lorazepam 0.5 mg tablet TAKE ONE TABLET BY MOUTH 30 MIN PRIOR TO MRI AND REPEAT AFTER 30 MIN IF NEEDED. AVOID DRIVING AND ALCOHOL active Not Available Not Available No t Available cimetidin e 200 mg tablet Take 1 tab by mouth daily if trouble with swallowi ng increase to twice daily 2018 active Not Available Not Available Not Avai lable erythromy mary 5 mg/gram (0.5 %) eye ointment ointment at bedtime 10/01 completed Not Available Not Available Not Available ferrous sulfate 325 mg (65 mg iron) tablet Take 1 tab by mouth every other day 03/18 completed Not Available Not Available Not Available Norvasc 5 mg tablet 1 TAB daily 01/18 completed Not Available Not Available Not Available Micardis 40 mg tablet 1 tablet daily by mouth 05/05 completed Not Available Not Available Not Available Tylenol 325 mg tablet 1-2 tabs q6h 10/22 completed Not Available Not Available Not Available cephalexi n 500 mg tablet take 1 tablet every 12 hours 12/19 completed Not Available Not Available Not Available diltiazem CD 120 mg capsule,e xtended release 24 hr TAKE 1 CAPSULE BY MOUTH DAILY active Not Available Not Available No t Available hydrochlo rothiazid e 25 mg tablet TAKE ONE TABLET BY MOUTH EVERY DAY 06/09 completed Not Available Not Available Not Available furosemid e 20 mg tablet 1 Tab by mouth daily in the AM 03/15 completed Not Available Not Available Not Available gabapenti n 100 mg capsule Take 1 capsule by mouth twice a day 10/05 completed Not Available Not Available Not Available losartan 100 mg tablet Take 1 tablet by mouth every day 04/22 completed Not Available Not Available Not Available fluticaso ne propionat e 50 mcg/actua tion nasal spray,madelaine pension INSTILL 1 SPRAY INTO BOTH NOSTRILS TWO TIMES A DAY active Not Available Not Available No t Available doxycycli ne hyclate 100 mg tablet twice daily 06/01 completed Not Available Not Available Not Available atenolol 50 mg tablet 1 TAB DAILY 11/26 completed Not Available Not Available Not Available ipratropi um bromide 21 mcg (0.03 %) nasal spray 2 sprays in each nostril three times daily active Not Available Not Available No t Available felodipin e ER 5 mg tablet,ex tended release 1 TAB daily 01/31 completed Not Available Not Available Not Available valsartan 160 mg tablet Take 1/2 tablet by mouth once a day 12/14 completed Not Available Not Available Not Available Senna-S 8.6 mg-50 mg tablet Take 1 tablet by mouth at bedtime active Not Available Not Available No t Available Mucinex 600 mg tablet, extended release 02/19 completed Not Available Not Available Not Available Prilosec OTC 20 mg tablet,de layed release 1 CAP daily 01/31 completed Not Available Not Available Not Available memantine 10 mg tablet Take 1 tablet twice a day by oral route. active Not Available Not Available No t Available memantine 5 mg tablet TAKE 1 TABLET BY MOUTH DAILY FOR 7 DAYS, THEN INCREASE TO 1 TABLET TWO TIMES A DAY FOR 7 DAYS, THEN TAKE 1 TABLET IN THE MORNING AND 2 IN TH 01/07 completed Not Available Not Available Not Available DILT-XR 120 mg capsule, extended release Take 1 cap by mouth daily 05/31 completed Not Available Not Available Not Available Asprin Ec Low Dose 11/24 completed Not Available Not Available Not Available cholecalc iferol (vitamin D3) 25 mcg (1,000 unit) tablet Take 1 tablet twice a day active Not Available Not Available No t Available hydrochlo rothiazid e 12.5 mg tablet Take 1 tab by mouth daily 2017 active Not Available Not Available Not Avai lable Vitamin C (ascorbat e calcium) 814 mg/gram oral powder 2016 active Not Available Not Available Not Avai lable Claritin Liqui-Gel 10 mg capsule Take 1 tab by mouth daily 10/04 completed Not Available Not Available Not Available Vitamin D3 50 mcg (2,000 unit) capsule 1 QD 2013 active Not Available Not Available Not Avai lable Incruse Ellipta 62.5 mcg/actua tion powder for inhalatio n INHALE 1 PUFF BY MOUTH ONCE A DAY active Not Available Not Available No t Available Caltrate- D3 Plus Minerals 300 mg-20 mcg-25 mg-0.5 mg tablet Take 1 tablet by mouth once a day as directed 08/25 completed Not Available Not Available Not Available melatonin 10 mg-lemon balm leaf extract 1 mg tablet 1 qhs 01/08 completed Not Available Not Available Not Available Metamucil 3.4 gram/5.4 gram oral powder take 3.4 gram mix in a glass of water daily 2023 active Not Available Not Available Not Avai lable Metamucil 0.4 gram capsule Take 3 capsules every day by oral route. 2023 active Not Available Not Available Not Avai lable magnesium 400 mg (as magnesium oxide) tablet Take 1 tablet by mouth at bedtime 2022 active Not Available Not Available Not Avai lable Vitals Date Recorded Body height Body mass index (BMI) Body weight Oxygen saturation Oxygen saturation in Arterial blood by Pulse oximetry Heart rate Systolic blood pressure Diastolic blood pressure Provider Name and Address Organization Details Last Updated DateTime 3 156.464 cm 23.6 kg/m2 00660.3 3 g 97 % 97 % 75 /min 152 mm[Hg] 56 mm[Hg] MAURIZIO LESLIE CMA [facility] 3 14:30:58 Date Recorded Systolic blood pressure Diastolic blood pressure Provider Name and Address Organization Details Last Updated DateTime 06/09/2023 142 mm[Hg] 52 mm[Hg] SHEELA ADRIAN, COM[employer] WORKER [address], [place], [address], [facility] 06/09/2023 15:03:47 Social History None recorded. Functional Status None recorded. Mental Status None recorded. Family History Relationship Description Onset Age of this Age Resolved Age Notes Mother Family history of cardiovascular disease in first degree female relative less than 65 years of age Notes:*Problem: Mother: Dece ased EARLY 70S, ?natural causes; [place] in 60s. rheumatic fever. Father: , ?cancer. Brother- GA X 2, 66. Smoker. Brother- Alive, [place] age 68 Children: 7; relatively healthy, 1 has gall bladder problems. 1 daughter has breast cancer. HTN: No HLD: No Coronary heart disease: Yes Diabetes mellitus: No Breast cancer: yes, Daughter Colorectal cancer: Yes Prostate cancer: No Uterine/ ovarian CA; no Medical History No medical history recorded. Gynecological HistoryNo gynecological history recorded. Obstetrics History GPAL:G 0 P 0 0 0 0 Immunizations Vaccine Type Date Status Provider Name and Address Organization Details Recorded Time Tdap 07/18/2015 completed Not Available [facility] 20:02:31 Pneumococcal conjugate PCV 13 07/18/2015 completed Not Available [facility] 08/07/2023 20:02:31 Influenza, high-dose, trivalent, PF 03/17/2018 completed Not Available [facility] 08/07/2023 20:02:31 Influenza, high-dose, trivalent, PF 03/25/2017 completed Not Available [facility] 08/07/2023 20:02:31 Td(adult) unspecified formulation 06/30/1997 completed Not Available [facility] 08/07/2023 20:02:31 Influenza, split virus, trivalent, preservative 03/15/2015 completed Not Available [facility] 08/07/2023 20:02:31 Influenza, high-dose, quadrivalent, PF 05/04/2020 completed Not Available [facility] 08/07/2023 20:02:30 Influenza, high-dose, quadrivalent, PF 05/14/2022 completed Not Available [facility] 08/07/2023 20:02:30 pneumococcal polysaccharide PPV23 04/06/2013 completed Not Available [facility] 2023 20:02:30 influenza, unspecified formulation 05/10/2019 completed Not Available [facility] 08/07/2023 20:02:31 influenza, unspecified formulation 06/05/2021 completed Not Available [facility] 08/07/2023 20:02:31 Influenza, high-dose, quadrivalent, PF 06/09/2023 completed SHEELA ADRIAN APRN [address], [place], [address], [facility]. 06/09/2023 15:44:05 Past Encounters Encounter ID Performer Location Encounter Start Date Encounter Closed Date Diagnosis/Indication Diagnosis SNOMED-CT Code [id number] SHEELA ADRIAN APRN [address] [address] 06/09/2023 14:20:01 06/09/2023 15:43:14 Essential hypertension 35179573 Heart murmur 33896542 Cerebral infarction 4325 98423 Chronic ob structive pulmonary disease 06992655 Fatigue 00722004 Anemia 612869355 Bone density finding 385 522050 Constipation 46848270 Anxiety disorder 2923035 06 Melena 7211728 Thoracic back pain 65565 8004 Nonulcer dyspepsia 84631 07 Active or passive immunization 754774707 Health Concerns Section Related Observation LastModified by Organization Detai ls LastModified Time None Recorded Concern Status LastModified by Organization Details LastModified Time None Recorded Advance Directives Directive None Recorded Payers Encounter Date Sequence Insurance Name Policy Number Policy Nevarez Covered Member ID Nevarez Member ID Guarantor Name 06/09/2023 2 [facility] (MEDICAID) Randi Oswald [id number] Randi Oswald 06/09/2023 1 [employer] (MEDICARE REPLACEMENT HMO) Randi Oswald [id number] Randi Oswald Notes Date Note Type Note Provider Name and Address Organization Details Recorded Time 06/09/2023 text/html HPI Notes: Is he re with her daughter for follow-up: Only concern is nasal spray, she does not have it. Feels like she is not getting any air through her nose. - Hypertension. Hyperlipidemia. PVD. Chronic kidney disease, stage G3a. Takes valsartan, dilt, atorvastatin. Last visit HCTZ was stopped. - Systolic heart murmur. Carotid bruit. Stenosis of the right coronary artery at 60%. Takes atorvastatin. - CVA. Vertebral basilar insufficiency. Balance problems secondary to CVA. ---Dizziness/ vertigo. Dizziness/ vertigo is thought to be r/t to stroke, could also be medication side effect. Takes Aggrenox, atorvastatin. Mucinex was stopped last visit to see if dizziness improved. - Chronic back pain. aftercare healing traumatic hip fracture with revision surgery and chronic hip pain. Knee pain, right, intermittent. Takes APAP PRN. No longer on tramadol. - COPD. Cough. Post nasal drip. Not using incruse inhaler or any nasal sprays currently. Last visit mucinex was stopped and was encouraged to do saline sprays. - Fatigue. see ROS. - Dyspepsia. Dysphagia. Hypomag. Takes Pepcid. Last visit was encouraged to add on mag supplementation. - Anemia. Suspect of chronic disease/ renal in origin. - Osteopenia. Takes supplements. - Constipation. Takes Colace, senna. Was encouraged to add on metamcuil, magnesium oxide. Is doing mag oxide, not consistent with metamucil. - Chronic anxiety. Insomnia. Forgetfulness. Takes celexa, trazodone. Daughter checks on her daily. - Black stool. last visit, did ifob and it was negative. SHEELA ADRIAN, COMPOS[employer] WORKER [address], [place], [address], [place] - [facility]. 06/09/2023 15:44:08 OBGyn Episode No OBEpisode recorded.
--- OUTSIDE RECORDS SUMMARY | 2024-01-12 02:09 | XMS_ITS | Encounter Summary ---
Author Organization [facility] Address [address] [place] [address] Care Team Providers Care Nailing Machine Operator Name Role Phone Star Vasquez MD Primary Care Provider [phone] Encounter Details Date Type Department Care Team (Late st Contact Info) Description 09/16/2005 Before PRISM Converted Visit (Maple) [facility] - Maple conversion [address] [place] [address] Kristina Pritchadr MD [address] [place] [phone] Social History Tobacco Use Types Packs/Day Years Used Date Smoking Tobacco: Never Assessed Sex and Gender Information Value Date Recorded Sex Assigned at Not on file Gender Identity Female 10/16/2020 9:54 EDT Sexual Orientation Not on file documented as of this encounter Progress Notes * Anirudh, Conv Medical Review Specialist - 06/09/2009 0035 EST [facility] PROGRESS/FOLLOWUP NOTE - 09/16/2005 SUBJECTIVE: The patient is here for sore throat and pressure in her ears especially at night for the past 10 days. She has had some nonproductive cough and fatigue for the same time frame. Pool therapy has been very effective for her back pain. She has not done it for a weekbecause of being ill andshe has noticed the symptoms are worse. She wonders if the twisting motion that she is doing in thepool may be exacerbating it a little bit too. OBJECTIVE: Blood pressure 170/72, pulse 88, temperature 97.8. In general, she is in no acute distress. Bilateral TMs and oropharynx are normal. No lymphadenopathy or sinus tenderness. Heart - RegularS1 and S2. Lungs are clear. ASSESSMENT: PROBLEM #1: URI. PLAN: Conservative care. Increase fluid intake and let me know if things worsen. PROBLEM #2: Back pain. Improved with physical therapy. I encouraged her not to do the twisting motion in the pool and to try Tylenol before and after exercise to see if this will be helpful. PROBLEM #3: Elevated blood pressure without diagnoses of hypertension. It was up at her last visit as well. She would like to see if her symptoms can improve without medical intervention. She will check her numbers when sheis at the drugstore. Otherwise, we will plan tosee her back in two to three months for evaluation of this. Signed by Kristina Pritchard MD 09/24/2005 09:40 Yanci Camarillo MD Kristina Pritchard MD - Kristina Pritchard MD A - lgr Job ID: [id number] Document ID: [id number] cc: documented in this encounter Plan of Treatment Upcoming Encounters Date Type Department Care Team (Late st Contact Info) Description 02/03/2024 12:45 EDT Office Visit [facility] Ophthalmology [facility] ([facility] [address] [place] [address] Goldy Guzman MD [address] [place] [address] documented as of this encounter Visit Diagnoses Not on filedocumented in this encounter Care Teams Nailing Machine Operator Relationship Specialty Start Date End Date Star Vasquez MD [address] [place] [address] PCP - General 12/02/08 09/03/12 documented as of this encounter
--- OUTSIDE RECORDS SUMMARY | 2024-01-12 02:09 | XMS_ITS | Clinical Summary ---
Author Organization [facility] Address [facility] [place] [address] Care Team Providers Care Head Refrigeration Engineer Name Role Phone Izzy Jackson MD Primary Care Provider [phone] Allergies No known active allergies Medications Medication Sig Dispensed Refills Start Date End Date Status dipyridamole-aspirin (AGGRENOX) 200-25 mg per 12 hr capsule Take 1 capsule by mouth 2 times daily. Active traZODone (DESYREL) 100 mg tablet Take 50 mg by mouth nightly. Active atenolol (TENORMIN) 25 mg tablet Take 25 mg by mouth daily. Active traMADol (ULTRAM) 50 mg tablet Take 50 mg by mouth every 6 hours as needed. Active losartan (COZAAR) 50 mg tablet Take 50 mg by mouth daily. Active omeprazole (PRILOSEC) 20 mg capsule Take 20 mg by mouth daily. Active simvastatin (ZOCOR) 40 mg tablet Take 40 mg by mouth nightly. Active Active Problems Problem Noted Date Diagnosed Date Memory difficulty 09/23/2013 Other seborrheic keratosis 07/12/2013 Nevus 07/12/2013 Acrochordon 07/12/2013 Social History Tobacco Use Types Packs/Day Years Used Date Smoking Tobacco: Former Comments:quit 40 years ago Sex and Gender Information Value Date Recorded Sex Assigned at Not on file Gender Identity Not on file Sexual Orientation Not on file Last Filed [...] Mass Index 27.25 09/23/2013 12:39 PM EDT Plan of Treatment Health Maintenance Due Date Last Done Comments Tdap adult 1961 Tetanus vaccine 1961 Zoster vaccine (1 of 2) 1992 Advance Directive 1997 Bone Density Scan 10/24/2007 Pneumoccocal Vaccine: 65+ (1 of 1 - PCV) 10/24/2007 Covid-19 Vaccine (1 - 2022- season) 2023 Influenza (Flu) vaccine (1 o f 1 - Influenza standard series) 02/29/2024 Care Teams Head Refrigeration Engineer Relationship Specialty Start Date End Date Izzy Jackson MD [address] [place] [address] PCP - General 09/23/13
--- OUTSIDE RECORDS SUMMARY | 2024-01-12 02:09 | XMS_ITS | Encounter Summary ---
Author Organization [facility] Address [address] [place] [address] Care Team Providers Care Core Analyst Name Role Phone Star Vasquez MD Primary Care Provider [phone] Encounter Details Date Type Department Care Team (Late st Contact Info) Description 12/11/2005 Before PRISM Converted Visit (Maple) [facility] - Maple conversion [address] [place] [address] Garry Henry MD Social History Tobacco Use Types Packs/Day Years Used Date Smoking Tobacco: Never Assessed Sex and Gender Information Value Date Recorded Sex Assigned at Not on file Gender Identity Female 10/16/2020 9:54 EDT Sexual Orientation Not on file documented as of this encounter Progress Notes * Garry Henry MD - 06/23/2009 1038 EST [facility] PROGRESS/FOLLOWUP NOTE - 12/11/2005 PROBLEM: Cataracts. SUBJECTIVE: Randi is here for preoperative clearance to undergo cataract surgery on December 19, 2005. She has had a progressive cataract, right eye. Otherwise, she feels well. She is just getting over a mild URI. She does have chronic low back pain and had gone to physical therapy this winter, which did seem to help. She only takes p.r.n. medications including ibuprofen, Prevacid, Laura or methocarbamol. She denies fever, shortness of breath, palpitations, lightheadedness, chest pain or abdominal discomfort. She apparently did not have fasting blood tests that were recommended at the time of her examination in July. OBJECTIVE: Pulse 88, blood pressure 122/64, respirations 18, temp 97.9. Eyes - full EOM, EMELI. TMs are normal. Sinuses are nontender. Throat is clear. Neck is supple, no adenopathy. Chest is clear, good breath sounds. Heart sounds are regular, no murmur. Abdomen - active bowel sounds, soft, nontender. Extremities- no edema. She has some paralumbar muscle tenderness. ASSESSMENT: 1. Medically stable for cataract surgery. 2. Chronic low back pain. 3. Esophageal reflux. 4. Hyperlipidemia. PLAN: She will come in for fasting blood test screening. I do not believe she needs any other preoperative evaluation. She will continue her back exercises, and followup with Dr. Pritchard. Signed by Garry Henry MD 12/25/2005 12:39 Dayana Gr MD Garry Henry MD - Garry Henry MD A - clr Job ID: [id number] Document ID: [id number] cc: documented in this encounter Plan of Treatment Upcoming Encounters Date Type Department Care Team (Late st Contact Info) Description 02/03/2024 12:45 EDT Office Visit [facility] Ophthalmology [facility] [address] [place] [address] Goldy Guzman MD [address] [place] [phone] documented as of this encounter Visit Diagnoses Not on filedocumented in this encounter Care Teams Core Analyst Relationship Specialty Start Date End Date Star Vasquez MD [address] [facility] [place] [phone] PCP - General 12/02/08 09/03/12 documented as of this encounter
--- OUTSIDE RECORDS SUMMARY | 2024-01-12 02:09 | XMS_ITS | Encounter Summary ---
Author Organization [facility] Address [facility] [place] [address] Care Team Providers Care Commercial Loan Officer Name Role Phone Star Vasquez MD Primary Care Provider [phone] Encounter Details Date Type Department Care Team (Late st Contact Info) Description 02/12/2012 External Results XRay at [address] [place] [address] Reyna Anthony MD EMERGENCY DEPT [address] [place], [place] [address] Social History Tobacco Use Types Packs/Day Years Used Date Smoking Tobacco: Never Assessed Sex and Gender Information Value Date Recorded Sex Assigned at Not on file Gender Identity Not on file Sexual Orientation Not on file documented as of this encounter Plan of Treatment Not on file documented as of this encounter Procedures Procedure Name Priority Date/Time Associated Diagnosis Comments CT SCAN (SCAN) Routine 09/16/2008 CT SCAN (SCAN) Routine 08/09/2006 CT SCAN (SCAN) Routine 08/09/2006 documented in this encounter Results * Scan Doc: CT Scan (09/16/2008) Anatomical Region Laterality Modality Other Reyna Anthony MD MEDIA MGR SCAN EXT O RDR/RSLT * Scan Doc: CT Scan (08/09/2006) Anatomical Region Laterality Modality Other Tarik Beckwith MD MEDIA MGR SCAN EXT O RDR/RSLT * Scan Doc: CT Scan (08/09/2006) Anatomical Region Laterality Modality Other Trei Freire MD MEDIA MGR SCAN EXT O RDR/RSLT documented in this encounter Visit Diagnoses Not on filedocumented in this encounter Care Teams Commercial Loan Officer Relationship Specialty Start Date End Date Star Vasquez MD [facility] [address] [place] [address] PCP - General 01/02/12 07/11/13 documented as of this encounter
--- OUTSIDE RECORDS SUMMARY | 2024-01-12 02:09 | XMS_ITS | Encounter Summary ---
Author Organization [facility] Address [facility] [place] [address] Care Team Providers Care On Site Construction Superintendent Name Role Phone Sheela Storey APRN Primary Care Provider [phone] Reason for Visit * Reason Comments Skin Check Encounter Details Date Type Department Care Team (Late st Contact Info) Description 07/12/2013 3:15 PM EST Office Visit Dermatology at [address] [phone] Jacky Aparicio MD [address] [facility] [place] [address] Other seborrheic keratosis (Primary Dx); Nevus; Acrochordon Social History Tobacco Use Types Packs/Day Years Used Date Smoking Tobacco: Unknown Sex and Gender Information Value Date Recorded Sex Assigned at Not on file Gender Identity Not on file Sexual Orientation Not on file documented as of this encounter Progress Notes * Jacky Aparicio MD - 07/12/2013 4:47 PM EST Problem: Skin check. Randi is a 72-year-old woman who is referred today by Josh Cesar, for skin examination of some lesions on the face. She has noted a lesion on the right mid nasolabial fold for about a year. It was flesh toned, then became hyperpigmented, and now is spool fixer again. She denies any personal history of skin cancer or melanoma. She would also like me to look at some other spots on her hands. Physical examination reveals a pleasant 72-year-old woman who has solar lentigos present, particularly on the right dorsal hand and a few on the left as well. She has a small seborrheic keratosis on the left dorsal hand that has arisen out of an 8 mm solar lentigo and is slightly hyperkeratotic and dark brown in color. On her face, she has a seborrheic keratosis on the right mid nasolabial fold, which is the area of concern for her today, and centrally it still has some light pigmentation, but peripherally it has all faded. It has a waxy, stuck-on appearance; it is a seborrheic keratosis. She also has a seborrheic keratosis just below the right mid lower eyelid. She has several tags on the right lateral eyelid. She has a nevus adjacent to the right nasal ala. She has several early martin-k's on the left lateral cheek and a 2 cm solar lentigo, light grijalva, on the right lateral cheek. Patient is brown eyed and has type 3-4 Martinez pigmentation. Assessment and Plan: 1. Seborrheic keratosis, right mid nasolabial fold. a. Patient reassured about benign appearance of this. b. Discussed the fact that these will at times change their color, become darker and/or spool fixer, but this is not a cause for concern. c. As it is not symptomatic, would not recommend removal. 2. Benign skin examination of face and dorsal hands. a. Patient reassured about normal and benign tags, seborrheic keratoses, and solar lentigos. b. Reinforced sun avoidance precautions. Recommend return to clinic here p.r.n. COPY: Josh Cesra documented in this encounter Plan of Treatment Not on file documented as of this encounter Visit Diagnoses Diagnosis Other seborrheic keratosis- Primary Nevus Benign neoplasm of skin, site unspecified Acrochordon Unspecified hypertrophic and atrophic condition of skin documented in this encounter Care Teams On Site Construction Superintendent Relationship Specialty Start Date End Date Sheela Storey APRN [address] [place] [address] PCP - General 07/12/13 09/22/13 documented as of this encounter
--- OUTSIDE RECORDS SUMMARY | 2024-01-12 02:09 | XMS_ITS | Encounter Summary ---
Author Organization [facility] Address [facility] [place] [address] Care Team Providers Care Vp Communications Name Role Phone Star Vasquez MD Primary Care Provider [phone] Encounter Details Date Type Department Care Team (Late st Contact Info) Description 08/31/2008 Orders [place] [address] Star Gross MD [facility] [place] [address] Social History Tobacco Use Types Packs/Day Years [...] FILM LIBRARY STORAGE ONLY MR HEAD Routine 08/31/2008 8:54 PM EST documented in this encounter Results * FILM LIBRARY- STORAGE ONLY MR HEAD (08/31/2008 8:54 PM EST) 08/31/2008 8:54 PM EST Narrative RAD - 01/11/2014 10:16 AM EDT This is a non-reportable exam. Procedure Note Zaki Younger - 01/11/2014 This is a non-reportable exam. Star Gross MD IMG FILM LIBRARY O RDERABLES [facility] [address] [facility] [place] [address] documented in this encounter Visit Diagnoses Not on filedocumented in this encounter Care Teams Vp Communications Relationship Specialty Start Date End Date Star Vasquez MD [facility] [address] [place] [address] PCP - General 01/02/12 07/11/13 documented as of this encounter
--- OUTSIDE RECORDS SUMMARY | 2024-01-12 02:09 | XMS_ITS | Encounter Summary ---
Author Organization [facility] Address [address] [place] [address] Care Team Providers Care Flow Worker Name Role Phone Unavailable Primary Care Provider Unavailabl e Encounter Details Date Type Department Care Team (Latest Contact Info) Description 08/09/2006 20:14 EST - 08/12/2006 11:59 EST Hospital Encounter [facility] Neurosurgery Unit [address] [place] [address] Gonzalo Keyes MD [address] [facility] [place] [phone] Discharge Disposition: [facility] Social History Tobacco Use Types Packs/Day Years Used Date Smoking Tobacco: Never Assessed Sex and Gender Information Value Date Recorded Sex Assigned at Not on file Gender Identity Female 10/16/2020 9:54 EDT Sexual Orientation Not on file documented as of this encounter Discharge Disposition Disposition Code Departure Means Destination [facility] documented in this encounter Plan of Treatment Upcoming Encounters Date Type Department Care Team (Late st Contact Info) Description 02/03/2024 12:45 EDT Office Visit [facility] Ophthalmology [facility] [address] [place] [address] Goldy Guzman MD [address] [place] [phone] documented as of this encounter Procedures Procedure Name Priority Date/Time Associated Diagnosis Comments PTT Routine 08/12/2006 6:50 EST PROTIME Routine 08/12/2006 6:50 EST COMPLETE BLOOD COUNT AND DIFFERENTIAL Routine 08/12/2006 6:50 EST BUN Routine 08/12/2006 6:50 EST GLUCOSE, SERUM Routine 08/12/2006 6:50 EST CREATININE Routine 08/12/2006 6:50 EST CALCIUM Routine 08/12/2006 6:50 EST ELECTROLYTES Routine 08/12/2006 6:50 EST TRANSESOPHAGEAL ECHO (JASEN) 08/11/2006 9:49 EST PTT Routine 08/11/2006 7:15 EST PROTIME Routine 08/11/2006 7:15 EST COMPLETE BLOOD COUNT AND DIFFERENTIAL Routine 08/11/2006 7:15 EST BUN Routine 08/11/2006 7:15 EST GLUCOSE, SERUM Routine 08/11/2006 7:15 EST CREATININE Routine 08/11/2006 7:15 EST CALCIUM Routine 08/11/2006 7:15 EST ELECTROLYTES Routine 08/11/2006 7:[address] ANGIO HEAD AND NECK W CONTRAST 08/10/2006 13:30 EST PTT Routine 08/10/2006 7:10 EST PROTIME Routine 08/10/2006 7:10 EST COMPLETE BLOOD COUNT AND DIFFERENTIAL Routine 08/10/2006 7:10 EST BUN Routine 08/10/2006 7:10 EST GLUCOSE, SERUM Routine 08/10/2006 7:10 EST CREATININE Routine 08/10/2006 7:10 EST CALCIUM Routine 08/10/2006 7:10 EST ELECTROLYTES Routine 08/10/2006 7:10 EST TROPONIN I Routine 08/10/2006 1:12 EST SED RATE Routine 08/10/2006 1:12 EST COMPLETE BLOOD COUNT AND DIFFERENTIAL Routine 08/10/2006 1:12 EST SYPHILIS SERO (RPR) Routine 08/10/2006 1 :12 EST ALT Routine 08/10/2006 1:12 EST AST Routine 08/10/2006 1:12 EST ALKALINE PHOSPHATASE Routine 08/10/2006 1:12 EST HEMOGLOBIN A1C Routine 08/10/2006 1:12 EST GLUCOSE, SERUM Routine 08/10/2006 1:12 EST FOLATE Routine 08/10/2006 1:12 EST VITAMIN B12 Routine 08/10/2006 1:12 EST CK MB WITH TOTAL CK Routine 08/10/2006 1 :12 EST CALCIUM Routine 08/10/2006 1:12 EST BILIRUBIN, TOTAL Routine 08/10/2006 1:12 EST BACTERIAL CULTURE, URINE Routine 08/10/2006 0:01 EST URINE MICROSCOPIC Routine 08/10/2006 0:0 0 EST URINALYSIS WITH MICROSCOPIC IF POSITIVE Routine 08/10/2006 0:00 EST URINE CULTURE IF POSITIVE Routine 08/10/2006 0:00 EST MR HEAD WO CONTRAST 08/09/2006 2 3:27 EST PORTABLE CHEST 1 VIEW 08/09/2006 23:01 EST PTT Routine 08/09/2006 22:20 EST PROTIME Routine 08/09/2006 22:20 EST COMPLETE BLOOD COUNT Routine 08/09/2006 22:20 EST BUN Routine 08/09/2006 22:20 EST T3 FREE Routine 08/09/2006 22:20 EST T3, TOTAL Routine 08/09/2006 22:20 EST TSH Routine 08/09/2006 22:20 EST T4 FREE Routine 08/09/2006 22:20 EST T4 Routine 08/09/2006 22:20 EST CREATININE Routine 08/09/2006 22:20 EST LIPID PROFILE (INCLUDES CHOLESTEROL, TRIGLYCERIDES, HDL, LDL) Routine 08/09/2006 22:20 EST ELECTROLYTES Routine 08/09/2006 22:20 EST documented in this encounter Results * (ABNORMAL) GLUCOSE, SERUM (08/12/2006 6:50 EST) Glucose, Serum 104(H) 70 - 100 mg/dl [facility] 08/12/2006 6:50 EST 08/12/2006 6:57 EST Gonzalo Keeys MD CHEMISTRY & BLOOD GA S ORDERABLES [facility] [address] [place] [address] * PTT (08/12/2006 6:50 EST) PTT 30 20 - 35 secs [facility] Comment:Therapeutic Heparin range: 60-100 seconds 08/12/2006 6:50 EST 08/12/2006 6:57 EST Gonzalo Keyes MD HEMATOLOGY & PF4 ORD ERABLES Performing Organization Address [facility] Co de Phone Number [facility] [address] [place] [address] * PROTIME (08/12/2006 6:50 EST) Pro Time 14.3 12.0 - 15.0 secs [facility] I.N.R. 1.1 0.9 - 1.1 Ratio [facility] Comment: Moderate Intensity Coumadin INR = 2.0-3.0 Adjustments in anticoagulant therapy dose should be based upon the INR and NOT the Pro Time. 08/12/2006 6:50 EST 08/12/2006 6:57 EST Gonzalo Keyes MD HEMATOLOGY & PF4 ORD ERABLES Performing Organization Address [facility] de Phone Number [facility] [address] [place] [address] * ELECTROLYTES (08/12/2006 6:50 EST) Sodium 142 136 - 145 mEq/L [facility] Potassium 3.5 3.5 - 5.0 mEq/L [facility] Chloride 109 96 - 110 mEq/L [facility] CO2 28 24 - 32 mEq/L [facility] 08/12/2006 6:50 EST 08/12/2006 6:57 EST Narrative Authorizing Provider Result Grayson Keyes MD CHEMISTRY & BLOOD GA S ORDERABLES Performing Organization Address [facility] Co de Phone Number [facility] [address] [place] [address] * (ABNORMAL) CREATININE (08/12/2006 6:50 EST) Creatinine 0.44(L) 0.7 - 1.5 mg/dl [facility] GFR, Calculated >60 ml/min/1.7 3m2 [facility] 08/12/2006 6:50 EST 08/12/2006 6:57 EST Gonzalo Keyes MD CHEMISTRY & BLOOD GA S ORDERABLES [facility] [address] [place] [address] * (ABNORMAL) HEMAGRAM AND DIFFERENTIAL (08/12/2006 6:50 EST) WBC 5.08 4.0 - 12.4 K/cmm [facility] RBC 3.96 3.86 - 5.04 M/cmm [facility] Hemoglobin 12.0 11.6 - 15.2 gm/dl [facility] HCT 33.7(L) 34.9 - 44.4 % [facility] MCV 85 81 - 98 fl [facility] MCH 30.2 26.7 - 33.3 pg [facility] MCHC 35.5 32.1 - 35.9 gm/dl [facility] PLT 222 141 - 320 K/cmm [facility] RDW-CV 12.8 11.7 - 14.6 % [facility] % Neutrophils 64.7 45.5 - 79.7 % [facility] % Lymphocytes 26.4 15.0 - 46.8 % [facility] % Monocytes 7.4 1.8 - 12.0 % [facility] % Eosinophils 1.1 0.6 - 6.9 % [facility] % Basophils 0.4 0.2 - 1.4 % [facility] ABS Neutrophils 3.29 2.20 - 8.85 K/cmm [facility] ABS Lymphs 1.34 1.09 - 3.30 K/cmm [facility] ABS Monocytes 0.37 0.1 - 0.8 K/cmm [facility] ABS Eosinophils 0.06 0.03 - 0.61 K/cmm [facility] ABS Basophils 0.02 0.01 - 0.11 K/cmm [facility] Type of Diff: Automated [facility] 08/12/2006 6:50 EST 08/12/2006 6:57 EST Gonzalo Keyes MD PACKAGES & DNA PROBE ORDERABLES Performing Organization Address [facility] Phone Number [facility] [address] [place] [address] * CALCIUM (08/12/2006 6:50 EST) Calcium 8.8 8.5 - 10.5 mg/dl [facility] Calculated Calcium 10.1 8.5 - 10.5 mg/dl [facility] 08/12/2006 6:50 EST 08/12/2006 6:57 EST Gonzalo Keyes MD CHEMISTRY & BLOOD GA S ORDERABLES Performing Organization Address [facility] Phone Number [facility] [address] [place] [address] * BUN (08/12/2006 6:50 EST) BUN 13 10 - 26 mg/dl [facility] 08/12/2006 6:50 EST 08/12/2006 6:57 EST Gonzalo Keyes MD CHEMISTRY & BLOOD GA S ORDERABLES Performing Organization Address [facility] Phone Number [facility] [address] [place] [address] * TRANSESOPHAGEAL ECHO (JASEN) (08/11/2006 9:49 EST) Anatomical Region Laterality Modality Other 08/11/2006 9:49 EST Narrative 01/07/2009 6:13 EDT X *[facility]TRASOUND LABORATORY* [address] [place] [address] Interpreting Group: [facility] [address] [place] [address] Height: ? 62 in ( 157 cm ) S/D Pressure: Patient status: Inpatient Weight: ? 175 lb ( 79.55 kg ) BSA: ?1.8 m^2 Fellow: ? Kandice Paulino MD Performing MD: ??Ronn Howell MD Ordering MD: ?Yessenia Gan Referring MD: ?? Tarik Beckwith MD Attending MD: ?? Gonzalo Keyes MD Admitting MD: ?? Gonzalo Keyes MD *STUDY CONCLUSIONS* SUMMARY - ??Overall left ventricular systolic function was normal. There were no left ventricular regional wall motion abnormalities. - ??There was mild atheroma of the ascending aorta. 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 There was a moderately extensive atheroma of the descending aorta. - ??The left atrium was mild to moderately dilated. The left atrial appendage function was normal (normal emptying velocity). There was no left atrial appendage thrombus identified. *INDICATIONS AND HISTORY* DIAGNOSES SUPPORTING MEDICAL NECESSITY: CVA 436 HISTORY: 65yo woman with no MHx -- L MCA CVA *PROCEDURE DATA* PROCEDURE INFORMATION: Additional evaluation included limited spectral Doppler and color Doppler. This study was interpreted by [facility]. Dr. Ronn Howell MD was in attendance during the entire procedure. The procedure was started at 10:40:39. The procedure ended at 10:50:39. Linda 5 The risks, benefits, and alternatives of the procedure were explained to the patient's next of kin and informed consent was obtained. Prior to the procedure, the oropharynx was anesthetized with 5% Lidocaine ointment. The patient was given midazolam ( 1.5 mg ) and fentanyl ( 25 mcg ). The probe utilized was an adult sized multiplane probe. There were no complications during the transesophageal echo procedure. Final verification completed with patient, physician, and staff by Carlotta Alexander RN *CARDIAC ANATOMY* LEFT VENTRICLE: - ??Left ventricular size was normal. - ??Overall left ventricular systolic function was normal. - ??Left ventricular ejection fraction was estimated in the range of 65 % to 70 %. - ??There were no left ventricular regional wall motion abnormalities. - ??Left ventricular wall thickness was normal. RIGHT VENTRICLE: - ??Right ventricular size was normal. - ??Right ventricular systolic function was normal. LEFT ATRIUM: - ??The left atrium was mild to moderately dilated. - ??The left atrial appendage size was normal. - ??There was no left atrial appendage thrombus identified. - ??There was no left atrial thrombus identified. Doppler interpretation(s): - ??The left atrial appendage function was normal (normal emptying velocity). RIGHT ATRIUM: - ??Right atrial size was normal. AORTIC VALVE: - ??The aortic valve was trileaflet. - ??Aortic valve thickness was mildly increased. Doppler interpretation(s): - ??There was no significant aortic valve stenosis by color Doppler and spectral Doppler. - ??There was no significant aortic valvular regurgitation by color Doppler. MITRAL VALVE: - ??There was mild mitral annular calcification. - ??There was normal mitral valve leaflet excursion. Doppler interpretation(s): - ??There was no significant mitral valve stenosis by color Doppler and spectral Doppler. - ??There was trivial mitral valvular regurgitation by color Doppler. PULMONIC VALVE: - ??The structure of the pulmonic valve appeared to be normal. Doppler interpretation(s): - ??There was no significant pulmonic valve stenosis by color Doppler and spectral Doppler. - ??There was no significant pulmonic regurgitation by color Doppler. TRICUSPID VALVE: - ??The tricuspid valve structure was normal. - ??Tricuspid leaflet excursion was normal. Doppler interpretation(s): - ??There was no significant tricuspid valve stenosis by color Doppler and spectral Doppler. - ??There was no significant tricuspid valvular regurgitation by color Doppler. PERICARDIUM: - ??There was no significant pericardial effusion. - ??The pericardium was normal in appearance. AORTA: - ??The aortic root was normal in size. - ??There was mild atheroma of the ascending aorta. 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 - ??There was a moderately extensive atheroma of the descending aorta. SYSTEMIC VEINS: - ??The inferior vena cava was normal. - ??The interatrial septum was normal. - ??There was no evidence for a patent foramen ovale by agitated saline contrast injection. *MEASUREMENT TABLES* 2D measurements LEFT VENTRICLE ? NORMAL LVID ed (chordal) ??53 ?? mm ?? 40-48 mm IVS ed ? 9 ?mm ?? 7-10 mm Reviewed and signed by Ronn Howell MD Confirmed 11-Aug-2006 11:25:49 Procedure Note Ronn Howell MD - 01/07/2009 X *[facility]* [address] [place] [address] Interpreting Group: [facility] [address] [place] [address] Height: 62 in ( 157 cm ) S/D Pressure: Patient status: Inpatient Weight: 175 lb ( 79.55 kg ) BSA: 1.8 m^2 Fellow: Kandice Paulino MD Performing MD: Ronn Howell MD Ordering MD: Yessenia Gan Referring MD: Tarik Beckwith MD Attending MD: Gonzalo Keyes MD Admitting MD: Gonzalo Keyes MD *STUDY CONCLUSIONS* SUMMARY - Overall left ventricular systolic function was normal. There were no left ventricular regional wall motion abnormalities. - There was mild atheroma of the ascending aorta. 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 There was a moderately extensive atheroma of the descending aorta. - The left atrium was mild to moderately dilated. The left atrial appendage function was normal (normal emptying velocity). There was no left atrial appendage thrombus identified. *INDICATIONS AND HISTORY* DIAGNOSES SUPPORTING MEDICAL NECESSITY: CVA 436 HISTORY: 65yo woman with no MHx -- L MCA CVA *PROCEDURE DATA* PROCEDURE INFORMATION: Additional evaluation included limited spectral Doppler and colorDoppler. This study was interpreted by [facility]. Dr. Ronn Howell MD was in attendance during theentire procedure. The procedure was started at 10:40:39. The procedure ended at 10:50:39. Linda 5 The risks, benefits, and alternatives of theprocedure were explained to the patient's next of kin and informed consent was obtained. Prior to the procedure, the oropharynx was anesthetized with5% Lidocaine ointment. The patient was given midazolam ( 1.5 mg ) andfentanyl ( 25 mcg ). The probe utilized was an adult sized multiplane probe.There were no complications during the transesophageal echo procedure. Final verification completed with patient, physician, and staff by MARÍA Arreola *CARDIAC ANATOMY* LEFT VENTRICLE: - Left ventricular size was normal. - Overall left ventricular systolic function was normal. - Left ventricular ejection fraction was estimated in the range of 65 %to 70 %. - There were no left ventricular regional wall motion abnormalities. - Left ventricular wall thickness was normal. RIGHT VENTRICLE: - Right ventricular size was normal. - Right ventricular systolic function was normal. LEFT ATRIUM: - The left atrium was mild to moderately dilated. - The left atrial appendage size was normal. - There was no left atrial appendage thrombus identified. - There was no left atrial thrombus identified. Doppler interpretation(s): - The left atrial appendage function was normal (normal emptying velocity). RIGHT ATRIUM: - Right atrial size was normal. AORTIC VALVE: - The aortic valve was trileaflet. - Aortic valve thickness was mildly increased. Doppler interpretation(s): - There was no significant aortic valve stenosis by color Doppler and spectral Doppler. - There was no significant aortic valvular regurgitation by colorDoppler. MITRAL VALVE: - There was mild mitral annular calcification. - There was normal mitral valve leaflet excursion. Doppler interpretation(s): - There was no significant mitral valve stenosis by color Doppler and spectral Doppler. - There was trivial mitral valvular regurgitation by color Doppler. PULMONIC VALVE: - The structure of the pulmonic valve appeared to be normal. Doppler interpretation(s): - There was no significant pulmonic valve stenosis by color Doppler and spectral Doppler. - There was no significant pulmonic regurgitation by color Doppler. TRICUSPID VALVE: - The tricuspid valve structure was normal. - Tricuspid leaflet excursion was normal. Doppler interpretation(s): - There was no significant tricuspid valve stenosis by color Dopplerand spectral Doppler. - There was no significant tricuspid valvular regurgitation by color Doppler. PERICARDIUM: - There was no significant pericardial effusion. - The pericardium was normal in appearance. AORTA: - The aortic root was normal in size. - There was mild atheroma of the ascending aorta. 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 - There was a moderately extensive atheroma of the descending aorta. SYSTEMIC VEINS: - The inferior vena cava was normal. - The interatrial septum was normal. - There was no evidence for a patent foramen ovale by agitated saline contrast injection. *MEASUREMENT TABLES* 2D measurements LEFT VENTRICLE NORMAL LVID ed (chordal) 53 mm 40-48 mm IVS ed 9 mm 7-10 mm Reviewed and signed by Ronn Howell MD Confirmed 11-Aug-2006 11:25:49 Yessenia Gan [facility] CARDIAC ECHO ORDERAB LES * GLUCOSE, SERUM (08/11/2006 7:15 EST) Glucose, Serum 74 70 - 100 mg/dl [facility] 08/11/2006 7:15 EST 08/11/2006 8:13 EST Gonzalo Keyes MD CHEMISTRY & BLOOD GA S ORDERABLES [facility] [address] [place] [address] * PTT (08/11/2006 7:15 EST) PTT 28 20 - 35 secs [facility] Comment:Therapeutic Heparin range: 60-100 seconds 08/11/2006 7:15 EST 08/11/2006 8:13 EST Narrative Authorizing Provider Result Grayson Keyes MD HEMATOLOGY & PF4 ORD ERABLES Performing Organization Address [facility] de Phone Number [facility] [address] [place] [address] * PROTIME (08/11/2006 7:15 EST) Pro Time 13.7 12.0 - 15.0 secs [facility] I.N.R. 1.0 0.9 - 1.1 Ratio [facility] Comment: Moderate Intensity Coumadin INR = 2.0-3.0 Adjustments in anticoagulant therapy dose should be based upon the INR and NOT the Pro Time. 08/11/2006 7:15 EST 08/11/2006 8:13 EST Gonzalo Keyes MD HEMATOLOGY & PF4 ORD ERABLES Performing Organization Address [facility] de Phone Number [facility] [address] [place] [address] * (ABNORMAL) ELECTROLYTES (08/11/2006 7:15 EST) Sodium 143 136 - 145 mEq/L [facility] Potassium 3.4(L) 3.5 - 5.0 mEq/L [facility] Chloride 110 96 - 110 mEq/L [facility] CO2 25 24 - 32 mEq/L [facility] 08/11/2006 7:15 EST 08/11/2006 8:13 EST Narrative Authorizing Provider Result Grayson Keyes MD CHEMISTRY & BLOOD GA S ORDERABLES Performing Organization Address [facility] Co de Phone Number [facility] [address] [place] [address] * (ABNORMAL) CREATININE (08/11/2006 7:15 EST) Creatinine 0.45(L) 0.7 - 1.5 mg/dl [facility] GFR, Calculated >60 ml/min/1.7 3m2 [facility] 08/11/2006 7:15 EST 08/11/2006 8:13 EST Gonzalo Keyes MD CHEMISTRY & BLOOD GA S ORDERABLES [facility] [address] [place] [address] * (ABNORMAL) HEMAGRAM AND DIFFERENTIAL (08/11/2006 7:15 EST) Pathologist [facility] WBC 4.95 4.0 - 12.4 K/cmm [facility] RBC 4.30 3.86 - 5.04 M/cmm [facility] Hemoglobin 12.9 11.6 - 15.2 gm/dl [facility] HCT 36.6 34.9 - 44.4 % [facility] MCV 85 81 - 98 fl [facility] MCH 30.1 26.7 - 33.3 pg [facility] MCHC 35.3 32.1 - 35.9 gm/dl [facility] PLT 220 141 - 320 K/cmm [facility] RDW-CV 13.2 11.7 - 14.6 % [facility] % Neutrophils 74.8 45.5 - 79.7 % [facility] % Lymphocytes 18.0 15.0 - 46.8 % [facility] % Monocytes 5.8 1.8 - 12.0 % [facility] % Eosinophils 0.9 0.6 - 6.9 % [facility] % Basophils 0.5 0.2 - 1.4 % [facility] ABS Neutrophils 3.70 2.20 - 8.85 K/cmm [facility] ABS Lymphs 0.89(L) 1.09 - 3.30 K/cmm [facility] ABS Monocytes 0.29 0.1 - 0.8 K/cmm [facility] ABS Eosinophils 0.05 0.03 - 0.61 K/cmm [facility] ABS Basophils 0.02 0.01 - 0.11 K/cmm [facility] Type of Diff: Automated [facility] 08/11/2006 7:15 EST 08/11/2006 8:13 EST Gonzalo Keyes MD PACKAGES & DNA PROBE ORDERABLES Performing Organization Address [facility] de Phone Number [facility] [address] [place] [address] * CALCIUM (08/11/2006 7:15 EST) Calcium 8.9 8.5 - 10.5 mg/dl [facility] Calculated Calcium 9.7 8.5 - 10.5 mg/dl [facility] 08/11/2006 7:15 EST 08/11/2006 8:13 EST Gonzalo Keyes MD CHEMISTRY & BLOOD GA S ORDERABLES Performing Organization Address [facility] Phone Number [facility] [address] [place] [address] * BUN (08/11/2006 7:15 EST) BUN 13 10 - 26 mg/dl [facility] 08/11/2006 7:15 EST 08/11/2006 8:13 EST Gonzalo Keyes MD CHEMISTRY & BLOOD GA S ORDERABLES Performing Organization Address [facility] Phone Number [facility] [address] [place] [address] * CT ANGIO HEAD AND NECK (08/10/2006 13:30 EST) Anatomical Region Laterality Modality Other 08/10/2006 13:3 0 EST Narrative 01/07/2009 6:01 EDT 65 y/o with right hemiparesis and acute stroke in left mca territory CT ANGIO OF THE HEAD AND NECK, 08/10/2006, 1317 HOURS: HISTORY: ??Right hemiparesis and acute stroke in left MCA territory. COMPARISON: ??MR evaluation of 08/09/2006. TECHNIQUE: Dynamic IV contrast-enhanced scans of the cervical carotid arteries and [place] were performed with off line multiplanar and three dimensional reformations. IMPRESSION: 1. ? 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 2. ? Normal examination of the left vertebral artery, carotid arteries, and [place]. FINDINGS: ??CT evaluation with contrast of the arteries of the neck demonstrates mild narrowing of the origin and proximal aspect of the right vertebral artery. ??The remainder of the artery is patent. ??The vertebral artery is dominant and demonstrates no narrowing. ??Both the right and left common carotids as well as internal carotid arteries are patent with no areas of atherosclerotic narrowing. ??The [place] appears normal with no abnormal narrowing. [id number] D: ??08/11/2006 11:45 T: ??08/12/2006 09:43 I have personally reviewed the images and the above interpretation and agree with the findings. 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 COMPARISON: MR evaluation of 08/09/2006. TECHNIQUE: Dynamic IV contrast-enhanced scans of the cervical carotid arteries and [place] were performed with off line multiplanar and three dimensional reformations. IMPRESSION: 1. 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 2. Normal examination of the left vertebral artery, carotid arteries, and [place]. FINDINGS: CT evaluation with contrast of the arteries of the neck demonstrates mild narrowing of the origin and proximal aspect of the right vertebral artery. The remainder of the artery is patent. The vertebral artery is dominant and demonstrates no narrowing. Both the right and left common carotids as well as internal carotid arteries are patent with no areas of atherosclerotic narrowing. The [place] appears normal with no abnormal narrowing. [id number] I have personally reviewed the images and the above interpretation and agree with the findings. Authorizing Provider Result Grayson Keyes MD IMG CT ORDERABLES * GLUCOSE, SERUM (08/10/2006 7:10 EST) Glucose, Serum 98 70 - 100 mg/dl [facility] 08/10/2006 7:10 EST 08/10/2006 7:28 EST Narrative Authorizing Provider Result Grayson Keyes MD CHEMISTRY & BLOOD GA S ORDERABLES Performing Organization Address [facility] Phone Number [facility] [address] [place] [address] * PTT (08/10/2006 7:10 EST) PTT 28 20 - 35 secs [facility] Comment:Therapeutic Heparin range: 60-100 seconds 08/10/2006 7:10 EST 08/10/2006 7:28 EST Narrative Authorizing Provider Result Grayson Keyes MD HEMATOLOGY & PF4 ORD ERABLES Performing Organization Address [facility] Phone Number [facility] [address] [place] [address] * PROTIME (08/10/2006 7:10 EST) Pro Time 13.7 12.0 - 15.0 secs [facility] I.N.R. 1.0 0.9 - 1.1 Ratio [facility] Comment: Moderate Intensity Coumadin INR = 2.0-3.0 Adjustments in anticoagulant therapy dose should be based upon the INR and NOT the Pro Time. 08/10/2006 7:10 EST 08/10/2006 7:28 EST Narrative Authorizing Provider Result Grayson Keyes MD HEMATOLOGY & PF4 ORD ERABLES Performing Organization Address [facility] de Phone Number [facility] [address] [place] [address] * (ABNORMAL) ELECTROLYTES (08/10/2006 7:10 EST) Sodium 140 136 - 145 mEq/L [facility] Potassium 3.1(L) 3.5 - 5.0 mEq/L [facility] Chloride 106 96 - 110 mEq/L [facility] CO2 27 24 - 32 mEq/L [facility] 08/10/2006 7:10 EST 08/10/2006 7:28 EST Gonzalo Keyes MD CHEMISTRY & BLOOD GA S ORDERABLES Performing Organization Address [facility] Co de Phone Number [facility] [address] [place] [address] * (ABNORMAL) CREATININE (08/10/2006 7:10 EST) Pathologist [facility] Creatinine 0.48(L) 0.7 - 1.5 mg/dl [facility] GFR, Calculated >60 ml/min/1.7 3m2 [facility] 08/10/2006 7:10 EST 08/10/2006 7:28 EST Gonzalo Keyes MD CHEMISTRY & BLOOD GA S ORDERABLES Performing Organization Address [facility] Co de Phone Number [facility] [address] [place] [address] * (ABNORMAL) HEMAGRAM AND DIFFERENTIAL (08/10/2006 7:10 EST) WBC 4.48 4.0 - 12.4 K/cmm [facility] RBC 4.30 3.86 - 5.04 M/cmm [facility] Hemoglobin 12.9 11.6 - 15.2 gm/dl [facility] HCT 37.0 34.9 - 44.4 % [facility] MCV 86 81 - 98 fl [facility] MCH 30.1 26.7 - 33.3 pg [facility] MCHC 35.0 32.1 - 35.9 gm/dl [facility] PLT 231 141 - 320 K/cmm [facility] RDW-CV 12.8 11.7 - 14.6 % [facility] % Neutrophils 67.3 45.5 - 79.7 % [facility] % Lymphocytes 23.6 15.0 - 46.8 % [facility] % Monocytes 7.7 1.8 - 12.0 % [facility] % Eosinophils 0.8 0.6 - 6.9 % [facility] % Basophils 0.6 0.2 - 1.4 % [facility] ABS Neutrophils 3.01 2.20 - 8.85 K/cmm [facility] ABS Lymphs 1.06(L) 1.09 - 3.30 K/cmm [facility] ABS Monocytes 0.34 0.1 - 0.8 K/cmm [facility] ABS Eosinophils 0.04 0.03 - 0.61 K/cmm [facility] ABS Basophils 0.03 0.01 - 0.11 K/cmm [facility] Type of Diff: Automated FLETCH ER [facility] 08/10/2006 7:10 EST 08/10/2006 7:28 EST Gonzalo Keyes MD PACKAGES & DNA PROBE ORDERABLES Performing Organization Address City/[facility] Co de Phone Number [facility] [address] [place] [address] * CALCIUM (08/10/2006 7:10 EST) Calcium 8.8 8.5 - 10.5 mg/dl [facility] Calculated Calcium 9.5 8.5 - 10.5 mg/dl [facility] 08/10/2006 7:10 EST 08/10/2006 7:28 EST Gonzalo Keyes MD CHEMISTRY & BLOOD GA S ORDERABLES Performing Organization Address City/[facility] Co de Phone Number [facility] [address] [place] [address] * BUN (08/10/2006 7:10 EST) BUN 13 10 - 26 mg/dl [facility] 08/10/2006 7:10 EST 08/10/2006 7:28 EST Gonzalo Keyes MD CHEMISTRY & BLOOD GA S ORDERABLES Performing Organization Address City/[facility]/ZIP Co de Phone Number [facility] [address] [place] [address] * TROPONIN I (08/10/2006 1:12 EST) Pathologist [facility] Troponin I pre 2012 <0.15 ng/ml [facility] Comment: normal: less than 0.15 indeterminate: 0.15-1.50 positive: greater than 1.50 08/10/2006 1:12 EST 08/10/2006 1:17 EST Gonzalo Keyes MD CHEMISTRY & BLOOD GA S ORDERABLES Performing Organization Address [facility] Co de Phone Number [facility] [address] [place] [address] * TOTAL BILIRUBIN (08/10/2006 1:12 EST) Pathologist [facility] Bilirubin, Total <0.5 0.2 - 1.3 mg/dl [facility] 08/10/2006 1:12 EST 08/10/2006 1:17 EST Gonzalo Keyes MD CHEMISTRY & BLOOD GA S ORDERABLES Performing Organization Address [facility] Co de Phone Number [facility] [address] [place] [address] * SED. RATE:DAVIDREN (08/10/2006 1:12 EST) [facility] Sed. Rate Westergren 17 0 - 30 mm/hr [facility] 08/10/2006 1:12 EST 08/10/2006 1:17 EST Narrative Authorizing Provider Result Grayson Keyes MD HEMATOLOGY & PF4 ORD ERABLES Performing Organization Address [facility] Co de Phone Number [facility] [address] [place] [address] * GLUCOSE, SERUM (08/10/2006 1:12 EST) Pathologist [facility] Glucose, Serum 90 70 - 100 mg/dl [facility] 08/10/2006 1:12 EST 08/10/2006 1:17 EST Gonzalo Keyes MD CHEMISTRY & BLOOD GA S ORDERABLES Performing Organization Address [facility] Co de Phone Number [facility] [address] [place] [address] * SYPHILIS SERO (RPR) (08/10/2006 1:12 EST) Syphilis Sero (RPR) NONREACT. NR Dils [facility] 08/10/2006 1:12 EST 08/10/2006 1:17 EST Gonzalo Keyes MD IMMUNOLOGY AND SEROL OGY ORDERABLES Performing Organization Address [facility] Co de Phone Number [facility] [address] [place] [address] * FOLATE (08/10/2006 1:12 EST) Folate 13.4 ng/mL [facility] Comment: Deficient: ??Less than 3.4 ng/mL Indeterminate: ??3.4-5.4 ng/mL Normal: ??Greater than 5.4 ng/mL 08/10/2006 1:12 EST 08/10/2006 1:17 EST Gonzalo Keyes MD CHEMISTRY & BLOOD GA S ORDERABLES Performing Organization Address [facility] Co de Phone Number [facility] [address] [place] [address] * CK MB WITH TOTAL CK (08/10/2006 1:12 EST) CK 86 30 - 135 U/L [facility] MB 0.9 0 - 5.0 ng/ml [facility] CK-MB Index Not calculated , normal MB. 0 - 2.5 [facility] 08/10/2006 1:12 EST 08/10/2006 1:17 EST Narrative Authorizing Provider Result Grayson Keyes MD CHEMISTRY & BLOOD GA S ORDERABLES Performing Organization Address City/[facility]/ZIP Co de Phone Number [facility] [address] [place] [address] * HEMAGRAM AND DIFFERENTIAL (08/10/2006 1:12 EST) WBC 5.27 4.0 - 12.4 K/cmm [facility] RBC 4.32 3.86 - 5.04 M/cmm [facility] Hemoglobin 13.0 11.6 - 15.2 gm/dl [facility] HCT 37.3 34.9 - 44.4 % [facility] MCV 86 81 - 98 fl [facility] MCH 30.0 26.7 - 33.3 pg [facility] MCHC 34.8 32.1 - 35.9 gm/dl [facility] PLT 240 141 - 320 K/cmm [facility] RDW-CV 13.8 11.7 - 14.6 % [facility] % Neutrophils 64.6 45.5 - 79.7 % [facility] % Lymphocytes 26.2 15.0 - 46.8 % [facility] % Monocytes 7.5 1.8 - 12.0 % [facility] % Eosinophils 1.3 0.6 - 6.9 % [facility] % Basophils 0.4 0.2 - 1.4 % [facility] ABS Neutrophils 3.40 2.20 - 8.85 K/cmm [facility] ABS Lymphs 1.38 1.09 - 3.30 K/cmm [facility] ABS Monocytes 0.39 0.1 - 0.8 K/cmm [facility] ABS Eosinophils 0.07 0.03 - 0.61 K/cmm [facility] ABS Basophils 0.02 0.01 - 0.11 K/cmm [facility] Type of Diff: Automated [facility] 08/10/2006 1:12 EST 08/10/2006 1:17 EST Gonzalo Keyes MD PACKAGES & DNA PROBE ORDERABLES Performing Organization Address City/[facility]/ZIP Co de Phone Number [facility] [address] [place] [address] * CALCIUM (08/10/2006 1:12 EST) Calcium 9.1 8.5 - 10.5 mg/dl [facility] Calculated Calcium 9.4 8.5 - 10.5 mg/dl [facility] 08/10/2006 1:12 EST 08/10/2006 1:17 EST Gonzalo Keyes MD CHEMISTRY & BLOOD GA S ORDERABLES Performing Organization Address [facility] Co de Phone Number [facility] [address] [place] [address] * VITAMIN B12 (08/10/2006 1:12 EST) Vitamin B-12 337 250 - 1100 pg/ml [facility] 08/10/2006 1:12 EST 08/10/2006 1:17 EST Gonzalo Keyes MD CHEMISTRY & BLOOD GA S ORDERABLES Performing Organization Address [facility] de Phone Number [facility] [address] [place] [address] * AST (08/10/2006 1:12 EST) AST 24 15 - 46 U/L [facility] 08/10/2006 1:12 EST 08/10/2006 1:17 EST Gonzalo Keyes MD CHEMISTRY & BLOOD GA S ORDERABLES Performing Organization Address City/[facility] Co de Phone Number [facility] [address] [place] [address] * ALT (08/10/2006 1:12 EST) ALT 38 9 - 52 U/L [facility] 08/10/2006 1:12 EST 08/10/2006 1:17 EST Gonzalo Keyes MD CHEMISTRY & BLOOD GA S ORDERABLES [facility] [address] [place] [address] * ALKALINE PHOSPHATASE (08/10/2006 1:12 EST) Total Alkaline Phosphatase 84 38 - 126 U/L [facility] 08/10/2006 1:12 EST 08/10/2006 1:17 EST Gonzalo Keyes MD CHEMISTRY & BLOOD GA S ORDERABLES Performing Organization Address City/[facility] Co de Phone Number [facility] [address] [place] [address] * HEMOGLOBIN A1C (08/10/2006 1:12 EST) Hemoglobin A1C 5.5 % [facility] Comment: Reference Range: <6% Normal Range <7% Recommended goal by ADA guidelines 7-8% Suboptimal by ADA guidelines >8% Further action suggested by ADA guidelines 08/10/2006 1:12 EST 08/10/2006 1:17 EST Gonzalo Keyes MD CHEMISTRY & BLOOD GA S ORDERABLES Performing Organization Address [facility] de Phone Number [facility] [address] [place] [address] * BACTERIAL CULTURE, URINE (08/10/2006 0:01 EST) Specimen Description Urine [facility] Result No growth [facility] Report Status Final [id number] [facility] 08/10/2006 0:01 EST 08/10/2006 7:46 EST Narrative Authorizing Provider Result Grayson Keyes MD MICROBIOLOGY - GENER AL ORDERABLES Performing Organization Address [facility] Co de Phone Number [facility] [address] [place] [address] * URINE MICROSCOPIC (08/10/2006 0:00 EST) WBC, UA less than 1 0 - 5 /HPF [facility] RBC, UA less than 1 0 - 5 /HPF [facility] Squam Epithel, UA None seen NS /HPF [facility] Renal Epithel, UA None seen NS /HPF [facility] Bacteria, UA None seen NS /HPF [facility] Crystals, UA None seen /HPF [facility] R [facility] Hyaline Casts, UA None seen /LPF [facility] UA Comment Microscopic results are unreliable on urines unrefrig >2hrs or refrig >8hrs. [facility] Additional Findings Few yeast seen [facility] 08/10/2006 08/10/2006 0:0 5 EST Gonzalo Keyes MD URINALYSIS ORDERABLE S Performing Organization Address [facility] Co de Phone Number [facility] [address] [place] [address] * (ABNORMAL) URINALYSIS (08/10/2006 0:00 EST) Color, UA Yellow [facility] Clarity, UA Clear [facility] Glucose, UA Norm NORM [facility] Bilirubin, UA Small(A) NEG [facility] Ketones, UA Mod(A) NEG [facility] Specific [place], Urine 1.020 1.005 - 1.02 [facility] Blood, UA Trace(A) NEG [facility] pH, UA 6.0 5.0 - 9.0 [facility] Protein, UA Neg NEG [facility] Urobilinogen, UA Norm NORM mg/dL [facility] Nitrite, UA Neg NEG [facility] Leuk Esterase Neg NEG [facility] 08/10/2006 08/10/2006 0:0 5 EST Gonzalo Keyes MD URINALYSIS ORDERABLE S Performing Organization Address [facility] Co de Phone Number [facility] [address] [place] [address] * CULTURE IF UA POSITIVE (08/10/2006 0:00 EST) Culture if Indicated Culture indicated by urinalysis results. [facility] 08/10/2006 08/10/2006 0:0 5 EST Gonzalo Keyes MD [facility] AL ORDERABLES [facility] [address] [place] [address] * MR HEAD WO CONTRAST (08/09/2006 23:27 EST) Anatomical Region Laterality Modality Other 08/09/2006 23:2 7 EST Narrative 01/07/2009 6:01 EDT right sided weakness r/o stroke MRI OF THE BRAIN, WITHOUT CONTRAST: 08/09/2006, 2321 HOURS IMPRESSION: ??Acute infarct in the posterior limb of the left internal capsule and deep white matter of the left frontal lobe. CLINICAL HISTORY: ??Right arm hemiparesis. ??Evaluate for CVA. TECHNIQUE: MRI of the brain was done with diffusion-weighted sequences and ADC map. FINDINGS: ??The examination shows an acute infarct in the posterior limb of the left internal capsule and in the deep white matter of the left frontal lobe, adjacent to the body of the left lateral ventricle. ??The ventricles and sulci are age-appropriate and there is no midline shift. [id number] D: ??08/10/2006 13:21 T: ??08/11/2006 12:55 Procedure Note Samia García MD - 01/07/2009 right sided weakness r/o stroke MRI OF THE BRAIN, WITHOUT CONTRAST: 08/09/2006, 2321 HOURS IMPRESSION: Acute infarct in the posterior limb of the left internal capsule and deep white matter of the left frontal lobe. CLINICAL HISTORY: Right arm hemiparesis. Evaluate for CVA. TECHNIQUE: MRI of the brain was done with diffusion-weighted sequences and ADC map. FINDINGS: The examination shows an acute infarct in the posterior limb of the left internal capsule and in the deep white matter of the left frontal lobe, adjacent to the body of the left lateral ventricle. The ventricles and sulci are age-appropriate and there is no midline shift. [id number] Boyd Henriquez MD [facility] MRI ORDERABLES * PORTABLE CHEST 1 VIEW (08/09/2006 23:01 EST) Anatomical Region Laterality Modality Other 08/09/2006 23:0 1 EST Narrative 01/07/2009 6:01 EDT 65 yr old female with rt sided stroke r/o pneumonia PORTABLE CHEST, 1 VIEW: ??08/09/[id number] No prior studies are available for comparison. CLINICAL HISTORY: ??65-year-old female with right-sided stroke. ??Rule out pneumonia. FINDINGS: ??AP portable view of the chest demonstrates a normal size of the cardiomediastinal silhouette. ??The lungs are clear. ??There is no evidence of infiltrate or CHF. ??No pleural effusions are identified. ??The bony thorax is unremarkable. IMPRESSION: ??Negative portable chest exam. D: ??08/10/06 T: ??08/12/06/sb Procedure Note Montserrat Reyes MD - 01/07/2009 65 yr old female with rt sided stroke r/o pneumonia PORTABLE CHEST, 1 VIEW: 08/09/06, 2256 No prior studies are available for comparison. CLINICAL HISTORY: 65-year-old female with right-sided stroke. Rule out pneumonia. FINDINGS: AP portable view of the chest demonstrates a normal size of the cardiomediastinal silhouette. The lungs are clear. There is no evidence of infiltrate or CHF. No pleural effusions are identified. The bony thorax is unremarkable. IMPRESSION: Negative portable chest exam. sb Gonzalo Keyes MD [facility] DIAGNOSTIC IMAGI NG ORDERABLES * TSH (08/09/2006 22:20 EST) TSH 2.30 0.35 - 5.00 uIU/mL [facility] 08/09/2006 22:2 0 EST 08/09/2006 22:23 EST Gonzalo Keyes MD CHEMISTRY & BLOOD GA S ORDERABLES [facility] [address] [place] [address] * T4 (08/09/2006 22:20 EST) T4, Total 9.2 4.5 - 10.9 ug/dL [facility] 08/09/2006 22:2 0 EST 08/09/2006 22:23 EST Gonzalo Keyes MD CHEMISTRY & BLOOD GA S ORDERABLES Performing Organization Address [facility] de Phone Number [facility] [address] [place] [address] * T3, TOTAL (08/09/2006 22:20 EST) T3, Total 138 60 - 181 ng/dL [facility] 08/09/2006 22:2 0 EST 08/09/2006 22:23 EST Gonzalo Keyes MD CHEMISTRY & BLOOD GA S ORDERABLES Performing Organization Address [facility] de Phone Number [facility] [address] [place] [address] * PTT (08/09/2006 22:20 EST) PTT 31 20 - 35 secs [facility] Comment:Therapeutic Heparin range: 60-100 seconds 08/09/2006 22:2 0 EST 08/09/2006 22:23 EST Gonzalo Keyes MD HEMATOLOGY & PF4 ORD ERABLES Performing Organization Address [facility] de Phone Number [facility] [address] [place] [address] * PROTIME (08/09/2006 22:20 EST) Pro Time 13.3 12.0 - 15.0 secs [facility] I.N.R. 1.0 0.9 - 1.1 Ratio [facility] Comment: Moderate Intensity Coumadin INR = 2.0-3.0 Adjustments in anticoagulant therapy dose should be based upon the INR and NOT the Pro Time. 08/09/2006 22:2 0 EST 08/09/2006 22:23 EST Narrative Authorizing Provider Result Grayson Keyes MD HEMATOLOGY & PF4 ORD ERABLES Performing Organization Address [facility] Co de Phone Number [facility] [address] [place] [address] * (ABNORMAL) ELECTROLYTES (08/09/2006 22:20 EST) Sodium 142 136 - 145 mEq/L [facility] Potassium 2.9(LL) 3.5 - 5.0 mEq/L [facility] Comment:Sample retested, res ult confirmed Chloride 105 96 - 110 mEq/L [facility] CO2 27 24 - 32 mEq/L [facility] 08/09/2006 22:2 0 EST 08/09/2006 22:23 EST Narrative Authorizing Provider Result Grayson Keyes MD CHEMISTRY & BLOOD GA S ORDERABLES Performing Organization Address [facility] de Phone Number [facility] [address] [place] [address] * LIPID PROFILE (INCLUDES CHOLESTEROL, TRIGLYCERIDES, HDL, LDL) (08/09/2006 22:20 EST) Cholesterol 195 mg/dl [facility] Comment: Desirable:<200 Borderline:200-239 High Risk:>bj=124 Triglycerides 108 35 - 160 mg/dl [facility] HDL 46 mg/dl [facility] Comment: Highly Desirable:>60 Desirable:35-60 High Risk:<35 LDL, Calculated 127 mg/dl [facility] Comment: Desirable:<130 Borderline:130-159 High Risk:>io=461 Chol/HDL Ratio 4.2 [facility] Fasting? Unknown [facility] 08/09/2006 22:2 0 EST 08/09/2006 22:23 EST Narrative Authorizing Provider Result Grayson Keyes MD CHEMISTRY & BLOOD GA S ORDERABLES Performing Organization Address [facility] Co de Phone Number [facility] [address] [place] [address] * T4 FREE (08/09/2006 22:20 EST) Free T4 1.1 0.8 - 1.8 ng/dL [facility] 08/09/2006 22:2 0 EST 08/09/2006 22:23 EST Gonzalo Keyes MD CHEMISTRY & BLOOD GA S ORDERABLES Performing Organization Address [facility] de Phone Number [facility] [address] [place] [address] * T3 FREE (08/09/2006 22:20 EST) T3, Free 2.7 2.3 - 4.2 pg/mL [facility] 08/09/2006 22:2 0 EST 08/09/2006 22:23 EST Gonzalo Keyes MD CHEMISTRY & BLOOD GA S ORDERABLES Performing Organization Address [facility] Phone Number [facility] [address] [place] [address] * (ABNORMAL) CREATININE (08/09/2006 22:20 EST) Creatinine 0.46(L) 0.7 - 1.5 mg/dl [facility] GFR, Calculated >60 ml/min/1.7 3m2 [facility] 08/09/2006 22:2 0 EST 08/09/2006 22:23 EST Narrative Authorizing Provider Result Grayson Keyes MD CHEMISTRY & BLOOD GA S ORDERABLES Performing Organization Address [facility] Co de Phone Number [facility] [address] [place] [address] * HEMAGRAM (08/09/2006 22:20 EST) WBC 5.07 4.0 - 12.4 K/cmm [facility] RBC 4.36 3.86 - 5.04 M/cmm [facility] Hemoglobin 13.1 11.6 - 15.2 gm/dl [facility] HCT 37.9 34.9 - 44.4 % [facility] MCV 87 81 - 98 fl [facility] MCH 30.0 26.7 - 33.3 pg [facility] MCHC 34.5 32.1 - 35.9 gm/dl [facility] PLT 237 141 - 320 K/cmm [facility] RDW-CV 12.9 11.7 - 14.6 % [facility] 08/09/2006 22:2 0 EST 08/09/2006 22:23 EST Gonzalo Keyes MD HEMATOLOGY & PF4 ORD ERABLES Performing Organization Address City/State/[facility] Co de Phone Number [facility] [address] [place] [address] * BUN (08/09/2006 22:20 EST) BUN 13 10 - 26 mg/dl [facility] 08/09/2006 22:2 0 EST 08/09/2006 22:23 EST Gonzalo Keyes MD CHEMISTRY & BLOOD GA S ORDERABLES [facility] [address] [place] [address] documented in this encounter Visit Diagnoses Not on filedocumented in this encounter
--- OUTSIDE RECORDS SUMMARY | 2024-01-12 02:09 | XMS_ITS | Encounter Summary ---
Author Organization [facility] Address [facility] [place] [address] Care Team Providers Care Strategy Consultant Name Role Phone Star Vasquez MD Primary Care Provider [phone] Encounter Details Date Type Department Care Team (Late st Contact Info) Description 09/27/2011 [place] [address] Star Gross MD [facility] [place] [address] Social History Tobacco Use Types Packs/Day Years [...] FILM LIBRARY STORAGE ONLY MR HEAD Routine 09/27/2011 8:53 PM EDT documented in this encounter Results * FILM LIBRARY- STORAGE ONLY MR HEAD (09/27/2011 8:53 PM EDT) 09/27/2011 8:53 PM EDT Narrative RAD - 01/11/2014 10:16 AM EDT This is a non-reportable exam. Procedure Note Zaki Younger - 01/11/2014 This is a non-reportable exam. Star Gross MD IMG FILM LIBRARY O RDERABLES [facility] [address] [place] [address] documented in this encounter Visit Diagnoses Not on filedocumented in this encounter Care Teams Strategy Consultant Relationship Specialty Start Date End Date Star Vasquez MD [facility] [address] [place] [address] PCP - General 01/02/12 07/11/13 documented as of this encounter
--- OUTSIDE RECORDS SUMMARY | 2024-01-12 02:09 | XMS_ITS | Encounter Summary ---
Author Organization [facility] Address [facility] [address] Care Team Providers Care Spectrographer Name Role Phone Star Vasquez MD Primary Care Provider [phone] Encounter Details Date Type Department Care Team (Late st Contact Info) Description 08/09/2006 [place] [address] Star Gross MD [facility] [place] [address] Social History Tobacco Use Types Packs/Day Years [...] Associated Diagnosis Comments FILM LIBRARY STORAGE ONLY CT HEAD Routine 08/09/2006 10:56 AM EST documented in this encounter Results * FILM LIBRARY- STORAGE ONLY CT HEAD (08/09/2006 10:56 AM EST) 08/09/2006 10:5 6 AM EST Narrative RAD - 01/11/2014 10:16 AM EDT This is a non-reportable exam. Procedure Note Zaki Younger - 01/11/2014 This is a non-reportable exam. Star Gross MD IMG FILM LIBRARY O RDERABLES [facility] [address] [place] [address] documented in this encounter Visit Diagnoses Not on filedocumented in this encounter Care Teams Spectrographer Relationship Specialty Start Date End Date Star Vasquez MD [facility] [address] [place] [address] PCP - General 01/02/12 07/11/13 documented as of this encounter
--- OUTSIDE RECORDS SUMMARY | 2024-01-12 02:09 | XMS_ITS | Encounter Summary ---
Author Organization [facility] Address [facility] [address] Care Team Providers Care Tail Sawyer Name Role Phone Star Vasquez MD Primary Care Provider [phone] Encounter Details Date Type Department Care Team (Late st Contact Info) Description 04/11/2012 External Results XRay at [address] [place] [address] Provider, Scanning Social History Tobacco Use Types Packs/Day Years Used Date Smoking Tobacco: Never Assessed Sex and Gender Information Value Date Recorded Sex Assigned at Not on file Gender Identity Not on file Sexual Orientation Not on file documented as of this encounter Plan of Treatment Not on file documented as of this encounter Procedures Procedure Name Priority Date/Time Associated Diagnosis Comments MRI/MRA SCAN Routine 11/27/2011 MRI/MRA SCAN Routine 08/31/2008 CT SCAN (SCAN) Routine 08/10/2006 MRI/MRA SCAN Routine 08/09/2006 documented in this encounter Results * Scan Doc: MRI/MRA (11/27/2011) Anatomical Region Laterality Modality Other Scanning Provider MEDIA MGR SCAN EXT O RDR/RSLT * Scan Doc: MRI/MRA (08/31/2008) Anatomical Region Laterality Modality Other Scanning Provider MEDIA MGR SCAN EXT O RDR/RSLT * Scan Doc: CT Scan (08/10/2006) Anatomical Region Laterality Modality Other Samia García MD MEDIA MGR SCAN EXT O RDR/RSLT * Scan Doc: MRI/MRA (08/09/2006) Anatomical Region Laterality Modality Other Samia García MD MEDIA MGR SCAN EXT O RDR/RSLT documented in this encounter Visit Diagnoses Not on filedocumented in this encounter Care Teams Tail Sawyer Relationship Specialty Start Date End Date Star Vasquez MD [facility] [address] [place] [address] PCP - General 01/02/12 07/11/13 documented as of this encounter
--- OUTSIDE RECORDS SUMMARY | 2024-01-12 02:09 | XMS_ITS | Encounter Summary ---
Author Organization [facility] Address [facility] Samantha [facility] [place] [address] Care Team Providers Care Joy Operator Helper Name Role Phone Star Vasquez MD Primary Care Provider [phone] Encounter Details Date Type Department Care Team (Late st Contact Info) Description 08/10/2006 [place] [address] Star Gross MD [facility] [place] [address] Social History Tobacco Use Types Packs/Day Years [...] Comments FILM LIBRARY STORAGE ONLY CT HEAD AND SPINE Routine 08/10/2006 8:55 PM EST documented in this encounter Results * FILM LIBRARY- STORAGE ONLY CT HEAD AND SPINE (08/10/2006 8:55 PM EST) 08/10/2006 8:55 PM EST Narrative RAD - 01/11/2014 10:16 AM EDT This is a non-reportable exam. Procedure Note Zaki Younger - 01/11/2014 This is a non-reportable exam. Star Gross MD IMG FILM LIBRARY O RDERABLES [facility] [address] [facility] [place] [address] documented in this encounter Visit Diagnoses Not on filedocumented in this encounter Care Teams Joy Operator Helper Relationship Specialty Start Date End Date Star Vasquez MD [facility] [address] [place] [address] PCP - General 01/02/12 07/11/13 documented as of this encounter
--- OUTSIDE RECORDS SUMMARY | 2024-01-12 02:09 | XMS_ITS | Encounter Summary ---
Author Organization [facility] Address [address] [place] [address] Care Team Providers Care Health Occupations Instructor Name Role Phone Star Vasquez MD Primary Care Provider [phone] Encounter Details Date Type Department Care Team (Late st Contact Info) Description 08/01/2005 Before PRISM Converted Visit (Maple) [facility] - Maple conversion [address] [place] [address] Kristina Pritchard MD [address] [place] [phone] Social History Tobacco Use Types Packs/Day Years [...] 02/03/2024 12:45 EDT Office Visit [facility] - [place] [address] [place] [address] Goldy Guzman MD [address] [place] [phone] documented as of this encounter Visit Diagnoses * Evaluation - Anirudh, Conv Adjunct Political Science Instructor - 08/31/2009 [id number] EST [facility] HEALTH MAINTENANCE EXAMINATION - 08/01/2005 Randi comes in for her annual exam. Her past medical, surgical and family history are updated in her problem list. Medications are reviewed. The patient has no known drug allergies. SOCIAL HISTORY: She stopped smoking greater than 2 decades ago. She has 7 children and 20 grandchildren and is very active in her cheondoism. REVIEW OF SYSTEMS: Does have some intermittent stress incontinence issues and nothing that seems tobother her much at this point. Does complain of some low back pain for which she is seeing [facility]. She has noticed a worsening over the last few years and wonders if an x-ray should be repeated. Allergies seem pretty well controlled on Laura. Also discussed the fact that it has been about 3 years since her last mammogram and a P-DXA done several years ago showed very lower limits of normal bone density and she has not had a central DXA done. She also has a history of hyperlipidemia from some laboratory done by [facility]. For her physical examination, please see her blue sheet. Her blood pressure is noted to be 160 systolic. In general, she is in no acute distress. ASSESSMENT: 1. Well care. Await thin prep. She has minimal risk factors for cervical cancer, so every 2-3 year screening should be sufficient. Schedule for a mammogram and a bone density scan. Also encouraged her to consider colon cancer screening, especially given her grandfather's history of colon cancer as well as a maternal aunt. She will talk with her friends about who she should see and then let us know so we can set it up. Tetanus is up to date having been given in 1997. 2. Hyperlipidemia with an LDL of 166 a couple of years ago. Check a fasting lipid panel and comprehensive metabolic profile at her convenience. 3. Elevated blood pressure without prior history of hypertension. We will just plan to recheck whenshe comes back in. 4. Environmental allergies. Continue with Laura on a p.r.n. basis. Renew this for a year. 5. Reflux. Continue Prevacid on a p.r.n. basis. 6. Low back pain. Continue with physical therapy and check an LS-spine plain film. We will see the patient back based on the results of the above testing. Signed by Kristina Pritchard MD 08/17/2005 13:35 Jelena Pritchard, MDDselene Pritchard MD Kristina Pritchard MD - Kristina Pritchard MD P - o3 Job ID: [id number] Document ID: [id number] cc: documented in this encounter Care Teams Health Occupations Instructor Relationship Specialty Start Date End Date Star Vasquez MD [address] [place] [id number] PCP - General 12/02/08 09/03/12 documented as of this encounter
--- OUTSIDE RECORDS SUMMARY | 2024-01-12 02:09 | XMS_ITS | Encounter Summary ---
Author Organization [facility] Address [facility] Samantha [facility] [place] [address] Care Team Providers Care Welfare Eligibility Worker Name Role Phone Star Vasquez MD Primary Care Provider [phone] Encounter Details Date Type Department Care Team (Late st Contact Info) Description 09/16/2008 [place] [address] Star Gross MD [facility] [place] [address] Social History Tobacco Use Types Packs/Day Years [...] FILM LIBRARY STORAGE ONLY CT HEAD Routine 09/16/2008 10:53 AM EDT documented in this encounter Results * FILM LIBRARY- STORAGE ONLY CT HEAD (09/16/2008 10:53 AM EDT) 09/16/2008 10:5 3 AM EDT Narrative RAD - 01/11/2014 10:16 AM EDT This is a non-reportable exam. Procedure Note Zaki Younger - 01/11/2014 This is a non-reportable exam. Star Gross MD IMG FILM LIBRARY O RDERABLES RAD [address] [place] [address] documented in this encounter Visit Diagnoses Not on filedocumented in this encounter Care Teams Welfare Eligibility Worker Relationship Specialty Start Date End Date Star Vasquez MD [facility] [address] [place] [address] PCP - General 01/02/12 07/11/13 documented as of this encounter
[2024-01-12] MEDS: Barium Sulfate 2% W/V-Berry Smoothie 450 ML BTL PO ×2 (09:14→09:15)
--- NOTE | 2024-01-12 11:54 | DI.CT_ITS ---
Exam(s) CT ABDOMEN PELVIS W EXAM: CT ABDOMEN PELVIS W CLINICAL HISTORY: rlq abd pain,hernia abd wall,r10.31,k43.9. TECHNIQUE: Imaging Protocol: Axial computed tomography images with coronal and sagittal reformatted images were created and reviewed CONTRAST MATERIAL: Intravenous: Omnipaque 350 Contrast volume:100 ml Oral: yes / COMPARISON: CT CT ABDOMEN PELVIS W from 12/19/2020 FINDINGS: ABDOMEN and PELVIS: Lung Bases: No acute findings. Liver: Normal density. No suspicious mass. Gallbladder and biliary tract: No radiodense calculus. Stable mild biliary dilatation. Pancreas: Normal density. No abnormal calcifications or inflammatory process. No evidence of mass. Spleen: Normal. Kidneys: Normal size, contour and axis. No radiodense stones. No obstructive uropathy. No suspicious masses seen. Adrenal glands: No masses seen. Vasculature: Abdominal aorta non-dilated. Atherosclerotic changes. Soft tissues: Surgical clips in the right lower quadrant anterior abdominal wall related to prior her awa repair. No recurrence of hernia. Bladder: Nearly empty, not well evaluated.. No calculi.No focal mass. Bowel: No obstruction. No bowel wall thickening. Appendix normal. Peritoneal cavity: No ascites. No focal collection. No mesenteric inflammatory response. Bones: Right hip prosthesis creates artifact. Degenerative disc changes greatest at L5-S1. Stable m ild compression of the superior endplate of L1. Reproductive organs: Unremarkable. Lymph nodes: No pathologically enlarged lymph nodes. IMPRESSION:: Prior right lower quadrant abdominal wall hernia repair. No evidence of recurrence her awa. No acute abnormality elsewhere. The appendix appears normal. RADIATION DOSE DELIVERED: Total DLP DATA REPOSITORY: All CT scans at this facility are submitted to the National Radiology Data Registry (NRDR) Dose Index Registry (DIR) with the [employer] (ACR). RADIATION OPTIMIZATION: All CT scans at this facility use at least one of these dose optimization te chniques: automated exposure control; mA and/or kV adjustment per patient size (includes targeted exa ms where dose is matched to clinical indication); or iterative reconstruction.
[2024-01-12] MEDS: Omnipaque 350 MG/ML 100 ML BTL IJ (11:55)
[2024-01-12] MEDS: Normal Saline - Diluent 50 ML VIAL IJ (11:56)
== END ==
PROVIDERS: PCP Nurse Practitioner Family; Visit Provider Surgery
DX: Z79.01 Long term (current) use of anticoagulants (principal); K43.9 Ventral hernia without obstruction or gangrene; R10.31 Right lower quadrant pain; D64.9 Anemia, unspecified; D50.9 Iron deficiency anemia, unspecified; R41.3 Other amnesia
CPT/HCPCS: 74177; J3490

== ENCOUNTER → 2024-06-01 09:03 | Outpatient (BNVA) | payer OTHER, MEDICAID, SELFPAY | PROVIDERS: PCP Nurse Practitioner Family; Referring Provider Nurse Practitioner Family; Visit Provider Nurse Practitioner Adult Health | DX: G30.9 Alzheimer's disease, unspecified (principal); F01.50 Vascular dementia, unspecified severity, without behavioral disturbance, psychotic disturbance, mood disturbance, and anxiety; F02.80 Dementia in other diseases classified elsewhere, unspecified severity, without behavioral disturbance, psychotic disturbance, mood disturbance, and anxiety | CPT/HCPCS: 99214 ==

== ENCOUNTER → 2024-08-19 09:00 | Outpatient (BNVA) | payer MEDICARE, MEDICAID, SELFPAY | PROVIDERS: PCP Nurse Practitioner Family; Referring Provider Nurse Practitioner Family; Visit Provider Nurse Practitioner Adult Health | DX: G30.9 Alzheimer's disease, unspecified (principal); F01.50 Vascular dementia, unspecified severity, without behavioral disturbance, psychotic disturbance, mood disturbance, and anxiety; F02.80 Dementia in other diseases classified elsewhere, unspecified severity, without behavioral disturbance, psychotic disturbance, mood disturbance, and anxiety | CPT/HCPCS: 99214 ==

== ENCOUNTER 2024-08-31 14:27 | Outpatient (REF) | payer MEDICARE, MEDICAID, SELFPAY ==
[2024-08-31 21:28] LABS: Abs Immature Grans 0.02 10^3/uL (0.0-0.06); Absolute Basophil Count 0.06 10^3/uL (0.0-0.2); Absolute Eosinophil Count 0.04 10^3/uL (0.0-0.7); Absolute Lymphocyte Count 0.88 10^3/uL (1.2-3.4); Absolute Monocyte Count 0.44 10^3/uL (0.1-0.8); Absolute Neutrophil Count 4.59 10^3/uL (1.2-6.7); Eosinophils % 0.7 %; HGB 12.2 g/dL (11.2-15.7); Immature Grans % 0.3 %; Lymphocytes % 14.6 %; MCH 30.7 pg (27.0-33.0); MCV 93 fL (80-95); MPV 10.5 fL (8.0-11.0); Monocytes % 7.3 %; Neutrophils % 76.1 %; Platelet Count 267 10^3/uL (130-400); RBC 3.98 10^6/uL (3.93-5.22); RDW 12.8 % (11.7-14.6); RDW-SD 43.7 fL; Reticulocyte 0.8 % (0.5-2.4); WBC 6.03 10^3/uL (4.4-10.8)
[2024-08-31 21:36] LABS: Iron 65 ug/dL (50-170); Total Iron Binding Capacity 252 ug/dL (250-450)
[2024-08-31 22:06] LABS: Anion Gap 7.1 mmol/L (3-11); BUN 26 mg/dL (7-18); CO2 31.9 mmol/L (21.0-32.0); CREATININE 1.2 mg/dL (0.55-1.02); Calcium 9.2 mg/dL (8.5-10.1); Chloride 107 mmol/L (98-107); Estimated GFR 45.48 (mL/min/1.73m2); Ferritin 136 ng/mL (8-252); Glucose 136 mg/dL (74-106); Magnesium 2.4 mg/dL (1.8-2.4); Potassium 3.9 mmol/L (3.5-5.1); Sodium 146 mmol/L (136-145); Vitamin B12 1118 pg/mL (193-986); Vitamin D 25 Total 40.4 ng/mL (30-100)
== END 2024-08-31 14:28 | disposition home or self-care (01) ==
LOC: NCHCN 14:27
PROVIDERS: PCP Nurse Practitioner Family; Visit Provider Nurse Practitioner Family
DX: K30 Functional dyspepsia (principal); M85.89 Other specified disorders of bone density and structure, multiple sites; I10 Essential (primary) hypertension
CPT/HCPCS: 80048; 82306; 82607; 82728; 83540; 83550; 83735; 85025; 85045

== ENCOUNTER → 2024-10-21 13:58 | Outpatient (BNVA) | payer MEDICARE, MEDICAID, SELFPAY | PROVIDERS: PCP Nurse Practitioner Family; Referring Provider Nurse Practitioner Family; Visit Provider Nurse Practitioner Adult Health | DX: G30.9 Alzheimer's disease, unspecified (principal); F02.80 Dementia in other diseases classified elsewhere, unspecified severity, without behavioral disturbance, psychotic disturbance, mood disturbance, and anxiety; F01.50 Vascular dementia, unspecified severity, without behavioral disturbance, psychotic disturbance, mood disturbance, and anxiety; R63.4 Abnormal weight loss | CPT/HCPCS: 99214 ==

== ENCOUNTER → 2025-03-03 09:07 | Outpatient (BNVA) | payer MEDICARE, MEDICAID, SELFPAY | PROVIDERS: PCP Nurse Practitioner Family; Referring Provider Nurse Practitioner Family; Visit Provider Nurse Practitioner Adult Health | DX: G30.9 Alzheimer's disease, unspecified (principal); F02.80 Dementia in other diseases classified elsewhere, unspecified severity, without behavioral disturbance, psychotic disturbance, mood disturbance, and anxiety | CPT/HCPCS: 99213 ==

== ENCOUNTER 2025-03-15 15:02 | Outpatient (REF) | payer MEDICARE, MEDICAID, SELFPAY ==
[2025-03-15 15:33] LABS: Anion Gap 8.0 mmol/L (3-11); BUN 29 mg/dL (7-18); CO2 29.0 mmol/L (21.0-32.0); Calcium 9.1 mg/dL (8.5-10.1); Chloride 107 mmol/L (98-107); Estimated GFR 56.25 (mL/min/1.73m2); Glucose 98 mg/dL (74-106); Potassium 3.9 mmol/L (3.5-5.1); Sodium 144 mmol/L (136-145)
== END 2025-03-15 15:03 | disposition home or self-care (01) ==
LOC: NCHCN 15:02
PROVIDERS: PCP Nurse Practitioner Family; Visit Provider Nurse Practitioner Family
DX: E78.2 Mixed hyperlipidemia (principal); N18.31 Chronic kidney disease, stage 3a; I10 Essential (primary) hypertension
CPT/HCPCS: 80048